=== PATIENT | male | born 1940 | race Caucasian/White ===

== ENCOUNTER 2016-12-22 22:10 | Inpatient (IN) | payer MEDICARE, OTHER ==
[~2016-12-22] VITALS: Ht 175.3 cm; Wt 96.5 kg
[~2016-12-22 22:10] MED LIST: ATOR80TA75 PO; CARV6.2579 PO; CLOP75TA27 PO; DIGO125T PO; GLIM2TAB PO; LAMO150T15 PO; LEVO150T67 PO; LISI-313 PO; MECL25TA2 PO; MIRT15TA PO; NITR0.4T32 SL; PANT40TA4 PO; VENL150C PO
[2016-12-22 22:26] VITALS: Ht 175.3 cm; Wt 96.5 kg
[2016-12-23] MEDS ORDERED: SOD CHLORIDE 0.9% 1,000 ML IV STA (01:05)
--- NOTE | 2016-12-23 01:05 | ERD ---
ER Documentation Chief Complaint Chief Complaint throbbing headache , right eye droop noticed 2 days ago, abscess forehead HPI 76-year-old man with multiple medical conditions brought in by for painful red swelling to the top of the scalp. states she is only noticed it for 1 day. He has been feeling weak and has a history of chronic falls but states he has not fallen recently. He denies back pain, chest pain, or shortness of breath, no fevers or chills, no vomiting or diarrhea. Patient has had no recent antibiotic use or recent travel. ROS All systems reviewed and are negative except as per history of present illness. Medications Home Meds Reported Medications Lisinopril* (Lisinopril*) 5 Mg Tablet, 5 MG PO DAILY, #30 TAB 08/04/15 Carvedilol* (Carvedilol*) 6.25 Mg Tablet, 6.25 MG PO BID, #60 TAB 08/04/15 Meclizine Hcl* (Antivert*) 25 Mg Tablet, 25 MG PO Q8H Y for VERTIGO, TAB 03/05/15 Nitroglycerin* (Nitroglycerin* SL) 0.4 Mg Tab.subl, 0.4 MG SL Q5MIN Y for CHEST PAIN, BOTTLE 03/05/15 Levothyroxine Sodium* (Levothyroxine Sodium*) 150 Mcg Tablet, 150 MCG PO BEFORE BREAKFAST, #30 TAB 03/05/15 Pantoprazole* (Pantoprazole*) 40 Mg Tablet.dr, 40 MG PO DAILY, TAB 03/05/15 Clopidogrel Bisulfate (Clopidogrel) 75 Mg Tablet, 75 MG PO DAILY, #30 TAB 03/05/15 Mirtazapine* (Remeron*) 15 Mg Tablet, 15 MG PO HS, TAB 11/20/14 Venlafaxine Hcl* (Effexor XR*) 150 Mg Cap.sr.24h, 150 MG PO BID, CAP 11/20/14 Atorvastatin* (Atorvastatin*) 80 Mg Tablet, 80 MG PO HS, TAB 11/20/14 Glimepiride* (Glimepiride*) 2 Mg Tablet, 2 MG PO WITH BREAKFAST, TAB 05/23/14 Digoxin* (Digoxin*) 0.125 Mg Tab, 0.125 MG PO DAILY, TAB 04/09/14 Lamotrigine* (Lamictal*) 150 Mg Tablet, 150 MG PO BID, TAB 04/09/14 Allergies Allergies: Coded Allergies: iodine (Verified Allergy, Mild, 12/25/15) procainamide (Verified Allergy, Mild, 12/25/15) PMhx/Soc lumbar spinal stenosis, osteoarthritis, COPD, tobacco dependence, bipolar disorder, peripheral artery disease, ischemic cardiomyopathy and coronary artery disease, chronic gait instability with a history of falls, bradycardia, chronic kidney disease, previous coronary artery stents, diabetes mellitus PAST SURGICAL HISTORY: 1. Status post multiple percutaneous coronary interventions for coronary artery disease. 2. Status post cholecystectomy. 3. Status post left knee arthroscopy. 4. Status post bilateral knee replacements. 5. Status post laminectomy and umbilical hernia repair. 6. Status post inferior vena cava filter placement. 7. Status post TAVR for severe aortic stenosis. History of Surgery: No Anesthesia Reaction: No Hx Neurological Disorder: No Hx Respiratory Disorders: No Hx Cardiac Disorders: Yes (AORTIC STENOSIS, BRADICARDIA, CAD, CHF, CVA, DVT) Hx Psychiatric Problems: Yes (BIPOLAR) Hx Miscellaneous Medical Probl: No Hx Alcohol Use: Yes Hx Substance Use: No Hx Tobacco Use: Yes FmHx Family History: No diabetes Physical Exam Vitals Vital Signs Date Time Temp Pulse Resp B/P Pulse Ox O2 Delivery O2 Flow Rate FiO2 12/23/16 01:58 80 18 111/68 100 Room Air 12/22/16 22:26 98.3 79 20 133/61 98 Physical Exam GENERAL: Elderly, chronically debilitated man, appears dehydrated, afebrile HEENT: Dry mucous membranes, no cervical spine deformity, large abscess cellulitis measuring about 5 cm over the frontal scalp with skin erythema and pustular discharge NEURO: Alert and oriented 3, cranial nerves II through XII intact bilaterally, pupils equal round reactive to light, no focal deficits or facial asymmetry, sensation intact distally Strength 5/5 in upper and lower extremities bilaterally CARDIAC: Regular rate and rhythm, no murmurs rubs or gallops LUNGS: Clear bilaterally no wheezing crackles or stridor ABDOMEN: Soft nontender, no guarding, no rigidity, no rebound, no psoas sign no obturator sign. Normoactive bowel sounds SKIN: Warm and dry to touch, abscess cellulitis over the top of the scalp circular measuring about 5 cm with surrounding skin induration and purulent discharge, no surrounding vesicles or papules noted EXTREMITIES: No clubbing cyanosis or edema, calves are bilaterally symmetrical, no Homans sign, no popliteal cord sign. Distal pulses equal and bilateral PSYCH: Normal affect without agitation or irritability Result Diagram: 12/23/169912/23/1699 Results 24 hrs Laboratory Tests Test 12/23/16 01:00 White Blood Count 14.410^3/ul Red Blood Count 4.0310^6/ul Hemoglobin 8.3g/dl Hematocrit 30.6% Mean Corpuscular Volume 75.9fl Mean Corpuscular Hemoglobin 20.6pg Mean Corpuscular Hemoglobin Concent 27.1g/dl Red Cell Distribution Width 19.5% Platelet Count 34074^3/UL Mean Platelet Volume 10.6fl Neutrophils % 79.4% Lymphocytes % 10.8% Monocytes % 6.8% Eosinophils % 2.1% Basophils % 0.3% Nucleated Red Blood Cells % 0.0/100WBC Neutrophils # 11.410^3/ul Lymphocytes # 1.610^3/ul Monocytes # 1.010^3/ul Eosinophils # 0.310^3/ul Basophils # 0.010^3/ul Nucleated Red Blood Cells # 0.010^3/ul Prothrombin Time 13.4Sec Prothrombin Time Ratio 1.0 INR International Normalized Ratio 1.02 Sodium Level 143mmol/L Potassium Level 3.9mmol/L Chloride Level 105mmol/L Carbon Dioxide Level 24mmol/L Anion Gap 18 Blood Urea Nitrogen 16mg/dl Creatinine 1.70mg/dl Glucose Level 161mg/dl Calcium Level 9.0mg/dl Total Bilirubin 0.2mg/dl Direct Bilirubin 0.00mg/dl Indirect Bilirubin 0.2mg/dl Aspartate Amino Transf (AST/SGOT) 14IU/L Alanine Aminotransferase (ALT/SGPT) 22IU/L Alkaline Phosphatase 74IU/L Troponin I 0.047ng/ml Total Protein 7.5g/dl Albumin 4.4g/dl Globulin 3.10g/dl Albumin/Globulin Ratio 1.41 Lipase 107U/L Current Medications Medications (Trade) Dose Ordered Sig/Randy Route PRN Reason Start Time Stop Time Status Last Admin Dose Admin Mupirocin 1 applic 1 applic ONCE ONCE TOP 12/23/16 01:30 12/23/16 01:31 DC 12/23/16 01:43 Ceftriaxone Sodium (Rocephin) 50 ml @ 100 mls/hr ONCE ONCE IVPB 12/23/16 01:30 12/23/16 01:59 DC 12/23/16 01:13 Fluconazole 200 mg 200 mg ONCE ONCE PO 12/23/16 01:30 12/23/16 01:31 DC 12/23/16 01:43 Sodium Chloride (NS) 1,000 ml @ 2,000 mls/hr Q30M STAT IV 12/23/16 01:05 12/23/16 01:34 DC 12/23/16 01:13 Procedures/MDM IV line was established patient was placed on monitoring specialist rhythm strip revealed a sinus rhythm at about 70 bpm with upright P and T waves. Patient was afebrile I administered 2 L normal saline intravenously for dehydration, ceftriaxone 1 g IV for cellulitis, fluconazole 200 mg p.o. for possible tinea capitis, and mupirocin 2% antibiotic ointment EKG performed, read by me revealed a normal sinus rhythm at 74 bpm, left axis deviation, right bundle branch block, no concerning ST elevations or depressions noted. One AP view of the chest performed, read by me reveals no acute infiltrates, normal mediastinum, sharp costophrenic and cardiac borders, no air under the diaphragm. Otherwise unremarkable chest x-ray. CT scan of the brain was negative for acute bleed mass or shift. CBC reveals a leukocytosis of 14 and anemia with a hemoglobin of 8.3, electrolytes were unremarkable, liver function tests normal, troponin negative Patient will be admitted to [facility] for continued medical management and IV antibiotics. Differential diagnoses include abscess cellulitis, acute kerion, squamous versus basal cell carcinoma, tinea capitis, shingles. Further management deferred to his PMD. I spoke to Dr. Adams regarding admission. Departure Diagnosis: Primary Impression: Scalp abscess Additional Impressions: Cellulitis of scalp Anemia Anemia type: unspecified type Qualified Code: D64.9 - Anemia, unspecified type Dehydration Condition: RIKA Kinney MD Dec 23, 2016 01:05
[2016-12-23 01:16] LABS: ABNORMAL IP MESSAGE 1; BASOPHILS % 0.3 % (0.0-2.0); EOSINOPHILS # 0.3 10^3/ul (0.0-0.5); EOSINOPHILS % 2.1 % (0.0-7.0); HEMATOCRIT 30.6 % (42.0-52.0); HEMOGLOBIN 8.3 g/dl (14.0-18.0); LYMPHOCYTES # 1.6 10^3/ul (0.8-2.9); LYMPHOCYTES % 10.8 % (15.0-51.0); MEAN CORPUSCULAR HEMOGLOBIN 20.6 pg (29.0-33.0); MEAN CORPUSCULAR HGB CONC 27.1 g/dl (32.0-37.0); MEAN CORPUSCULAR VOLUME 75.9 fl (82.0-101.0); MEAN PLATELET VOLUME 10.6 fl (7.4-10.4); MONOCYTES % 6.8 % (0.0-11.0); NEUTROPHIL # 11.4 10^3/ul (1.6-7.5); NEUTROPHILS % 79.4 % (39.0-77.0); PLATELET COUNT 271 10^3/UL (140-415); POSITIVE DIFF @See below; RED BLOOD COUNT 4.03 10^6/ul (4.70-6.10); RED CELL DISTRIBUTION WIDTH 19.5 % (11.5-14.5); WHITE BLOOD COUNT 14.4 10^3/ul (4.8-10.8)
[2016-12-23] MEDS ORDERED: CEFTRIAXONE 1 GM/50 ML (PMX) 50 ML IVPB ONE (01:30)
[2016-12-23] MEDS ORDERED: FLUCONAZOLE 200 MG TAB PO ONE (01:30)
[2016-12-23] MEDS ORDERED: MUPIROCIN 2% 22 GM OINT TOP ONE (01:30)
[2016-12-23 01:44] LABS: INR 1.02; PROTIME 13.4 Sec (12.2-14.2)
[2016-12-23 01:57] LABS: ALBUMIN 4.4 g/dl (3.3-4.9); ALBUMIN/GLOBULIN RATIO 1.41; BILIRUBIN,INDIRECT 0.2 mg/dl (0-1.1); BILIRUBIN,TOTAL 0.2 mg/dl (0.2-1.3); CREATININE 1.7 mg/dl (0.61-1.24); POTASSIUM 3.9 mmol/L (3.5-5.1); TOTAL PROTEIN 7.5 g/dl (6.1-8.1)
--- NOTE | 2016-12-23 02:02 | RADRPT ---
PROCEDURE: CT Brain without contrast. CLINICAL INDICATION: Headache. TECHNIQUE: A CT of the brain was performed utilizing axial sections from the skull base through th e vertex without contrast. Multiplanar re-formations were generated. Images were reviewed on a high- resolution PACS workstation. CTDIvol: 44.52 mGy. DLP: 720.23 mGy-cm. One or more of the following dose reduction techniques were used: - Automated exposure control. - Adjustment of the mA and/or kV according to patient size. - Use of iterative reconstruction technique. COMPARISON: None available FINDINGS: There is moderate generalized volume loss. No hydrocephalus is seen. There is no mass effect. No ac [place] intracranial hemorrhage is identified. There is no extra-axial collection. No CT evidence of ac [place] infarction is identified. There is a chronic infarction in the right occipital lobe. There is pa tchy low attenuation in the supratentorial white matter, a nonspecific finding which most likely rep resents the sequela of mild chronic microvascular ischemic disease. Incidental note is made of a 6 mm lipoma along the anterior falx cerebri. There are minimal atherosclerotic arterial calcifications . There is no significant mucosal disease in the paranasal sinuses. The visualized mastoid air cells a re clear. The ossesous structures are unremarkable. There is a subgaleal hematoma along the right fo rehead. IMPRESSION: 1. No acute intracranial pathology. 2. Moderate generalized volume loss. 3. Mild chronic microvascular ischemic changes. 4. Chronic right occipital lobe infarction. 5. Subgaleal hematoma along the right forehead. RPTAT: HTAR .Jeremy Middleton MD, Date Time Electronically viewed and signed by .Jeremy Middleton MD, MD on 12/23/2016 02:02 .R/
--- NOTE | 2016-12-23 02:04 | RADRPT ---
PROCEDURE: XR Chest. CLINICAL INDICATION: Abdominal pain. TECHNIQUE: Single frontal view of the chest. COMPARISON: 12/31/2015. FINDINGS: Cardiomegaly and new pulmonary mass congestion with patchy mid lung and lung base air space disease. No signs of pleural fluid or pneumothorax are seen. The osseous structures and soft tissues are unr emarkable. IMPRESSION: New mild failure. RPTAT: [facility] Physician Tash Date Time Electronically viewed and signed by Sandra Monae Physician on 12/23/2016 02:03 RS/
[2016-12-23 02:08] LABS: TROPONIN-I 0.047 ng/ml (0.00-0.12)
[2016-12-23 03:45] VITALS: BP 110/65; PULSE 67; RESP 18
[2016-12-23 07:49] VITALS: BP 116/55; RESP 18
[2016-12-23] MEDS ORDERED: GLUCOSE GEL 15 GRAM TUBE BUCCAL PRN (08:00)
[2016-12-23] MEDS ORDERED: GLUCOSE GEL 15 GRAM TUBE PO PRN ×2 (08:00)
[2016-12-23] MEDS ORDERED: GLUCAGON 1 MG INJ IM PRN (08:00)
[2016-12-23] MEDS ORDERED: DEXTROSE 50% 50 ML SYRINGE IV PRN ×2 (08:00)
--- NOTE | 2016-12-23 09:37 | HP ---
Date/Time of Note Date/Time of Note DATE: 12/23/16 TIME: 09:34 Assessment/Plan VTE Prophylaxis VTE Prophylaxis Intervention: other Lines/Catheters Urinary Cath still in place: No Assessment/Plan Chief Complaint/Hosp Course 1) cellulitis/abscess - IV antibiotics - monitor clinically 2) diabetes - follow blood sugar - sliding scale insulin Problems: HPI/ROS Admit Date/Time Admit Date/Time Dec 23, 2016 at 02:25 Hx of Present Illness Patient with diabetes, gait instability, cardiomyopathy and renal insufficiency comes in with swelling on his forehead. Patient was found to have evidence of cellulitis vs abscess and admitted for antibiotics and other therapy PMH/Family/Social Past Medical History Medical History: coronary artery disease, diabetes, hypertension, renal disease Past Surgical History Past Surgical Hx: angioplasty, other Social History Smoking Status: Never smoker Exam/Review of Systems Vital Signs Vitals Vital Signs Date Time Temp Pulse Resp B/P Pulse Ox O2 Delivery O2 Flow Rate FiO2 12/23/16 07:49 97.6 71 18 116/55 97 12/23/16 03:45 Room Air Exam Constitutional: well developed Head: atraumatic, normocephalic Neck: supple Respiratory: clear to auscultation Cardiovascular: regular rate and rhythm Gastrointestinal: non-tender, soft Extremities: normal pulses Labs Result Diagram: 12/23/169912/23/16 010 Medications Medications Current Medications Morphine Sulfate 4 mg 4 mg Q4H PRN IV PAIN LEVEL 6-10; Start 12/23/16 at 05:00 Cefazolin Sodium/ Sodium Chloride (Ancef/NS) 50 ml @ 100 mls/hr Q6 IVPB ; Start 12/23/16 at 12:00 Influenza Virus Vaccine (Fluzone) 0.5 ml ONCE ONCE IM* ; Start 12/24/16 at 09: 00; Stop 12/24/16 at 09:01 Diagnostic Test (Pha) (Accu-Chek) 1 ea 02 XX ; Start 12/24/16 at 02:00 Diagnostic Test (Pha) (Accu-Chek) 1 ea 02 XX ; Start 12/24/16 at 02:00 Miscellaneous Information 1 ea NOTE XX ; Start 12/23/16 at 08:00 Glucose (Glutose) 15 gm Q15M PRN PO DECREASED GLUCOSE; Start 12/23/16 at 08:00 Glucose (Glutose) 22.5 gm Q15M PRN PO DECREASED GLUCOSE; Start 12/23/16 at 08: 00 Dextrose (D50w Syringe) 25 ml Q15M PRN IV DECREASED GLUCOSE; Start 12/23/16 at 08:00 Dextrose (D50w Syringe) 50 ml Q15M PRN IV DECREASED GLUCOSE; Start 12/23/16 at 08:00 Glucagon (Glucagen) 1 mg Q15M PRN IM DECREASED GLUCOSE; Start 12/23/16 at 08: 00 Glucose (Glutose) 15 gm Q15M PRN BUCCAL DECREASED GLUCOSE; Start 12/23/16 at 08:00 DAMIR LATIF Dec 23, 2016 09:37
[2016-12-23] MEDS: INSULIN ASPART [NOVOLOG] 3 ML PEN SC SCH ×4 (09:52→21:00)
[2016-12-23] MEDS: CEFAZOLIN 500 MG in SOD CHLORIDE 0.9% 50 ML IVPB SCH ×2 (12:55→18:20)
[2016-12-23 14:09] VITALS: BP 102/52; RESP 18
[2016-12-23] MEDS: ACETAMINOPHEN 325 MG TAB PO PRN (15:44)
[2016-12-23 19:31] VITALS: BP 114/54; RESP 18
[2016-12-24] MEDS: CEFAZOLIN 500 MG in SOD CHLORIDE 0.9% 50 ML IVPB SCH ×4 (00:11→17:41)
[2016-12-24 01:33] VITALS: BP 105/53; RESP 18
[2016-12-24] MEDS: ACCU-CHEK XX SCH ×2 (02:00)
[2016-12-24] MEDS: ACETAMINOPHEN 325 MG TAB PO PRN ×2 (06:46→17:40)
[2016-12-24 07:39] VITALS: BP 104/58; RESP 20
[2016-12-24] MEDS: INSULIN ASPART [NOVOLOG] 3 ML PEN SC SCH ×4 (08:22→21:00)
[2016-12-24] MEDS ORDERED: INFLUENZA VIRUS VACCINE 0.5 ML (DISPENSING) IM* ONE (09:00)
--- NOTE | 2016-12-24 10:39 | PN ---
Date/Time of Note Date/Time of Note DATE: 12/24/16 TIME: 10:38 Assessment/Plan VTE Prophylaxis VTE Prophylaxis Intervention: other Lines/Catheters [facility] Saline Lock Urinary Cath still in place: No Assessment/Plan Chief Complaint/Hosp Course 1) cellulitis/abscess - IV antibiotics - monitor clinically 2) diabetes - follow blood sugar - sliding scale insulin Problems: Subjective 24 Hr Interval Summary Free Text/Dictation Patient has less headache Exam/Review of Systems Vital Signs Vitals Vital Signs Date Time Temp Pulse Resp B/P Pulse Ox O2 Delivery O2 Flow Rate FiO2 12/24/16 07:39 98.3 65 20 104/58 97 12/23/16 03:45 Room Air Intake and Output 12/23/16 12/23/16 12/24/16 15:00 23:00 07:00 Intake Total 50 ml 1250 ml 580 ml Output Total 800 ml 1450 ml Balance 50 ml 450 ml -870 ml Exam Constitutional: well developed Head: atraumatic, normocephalic Neck: supple Respiratory: clear to auscultation Cardiovascular: regular rate and rhythm Gastrointestinal: non-tender, soft Extremities: normal pulses Results Result Diagram: 12/23/16 0100 12/23/16 0100 Results 24 hrs Laboratory Tests Test 12/23/16 12:18 12/23/16 17:20 12/23/16 21:27 12/24/16 08:01 Bedside Glucose 125 123 147 145 Medications Medications Current Medications Morphine Sulfate 4 mg 4 mg Q4H PRN IV PAIN LEVEL 6-10; Start 12/23/16 at 05:00 Cefazolin Sodium/ Sodium Chloride (Ancef/NS) 50 ml @ 100 mls/hr Q6 IVPB Last administered on 12/24/16t 05:34; Admin Dose 100 MLS/HR; Start 12/23/16 at 12: 00 Diagnostic Test (Pha) (Accu-Chek) 1 ea 02 XX ; Start 12/24/16 at 02:00 Diagnostic Test (Pha) (Accu-Chek) 1 ea 02 XX ; Start 12/24/16 at 02:00 Miscellaneous Information 1 ea NOTE XX ; Start 12/23/16 at 08:00 Glucose (Glutose) 15 gm Q15M PRN PO DECREASED GLUCOSE; Start 12/23/16 at 08:00 Glucose (Glutose) 22.5 gm Q15M PRN PO DECREASED GLUCOSE; Start 12/23/16 at 08: 00 Dextrose (D50w Syringe) 25 ml Q15M PRN IV DECREASED GLUCOSE; Start 12/23/16 at 08:00 Dextrose (D50w Syringe) 50 ml Q15M PRN IV DECREASED GLUCOSE; Start 12/23/16 at 08:00 Glucagon (Glucagen) 1 mg Q15M PRN IM DECREASED GLUCOSE; Start 12/23/16 at 08: 00 Glucose (Glutose) 15 gm Q15M PRN BUCCAL DECREASED GLUCOSE; Start 12/23/16 at 08:00 Acetaminophen (Tylenol Tab) 650 mg Q6H PRN PO PAIN AND OR ELEVATED TEMP Last administered on 12/24/16 06:46; Admin Dose 650 MG; Start 12/23/16 at 14:30 DAMIR LATIF Dec 24, 2016 10:39
[2016-12-24 13:49] VITALS: BP 139/60; RESP 20
[2016-12-24 19:55] VITALS: BP 129/78; RESP 18
[2016-12-25] MEDS: CEFAZOLIN 500 MG in SOD CHLORIDE 0.9% 50 ML IVPB SCH ×3 (00:35→15:36)
[2016-12-25 02:00] VITALS: BP 118/55; RESP 18
[2016-12-25] MEDS: ACCU-CHEK XX SCH ×2 (02:00)
[2016-12-25 05:18] LABS: ABNORMAL IP MESSAGE 1; BASOPHILS % 0.2 % (0.0-2.0); EOSINOPHILS # 0.3 10^3/ul (0.0-0.5); EOSINOPHILS % 3.3 % (0.0-7.0); HEMATOCRIT 27.4 % (42.0-52.0); HEMOGLOBIN 7.7 g/dl (14.0-18.0); LYMPHOCYTES # 1.2 10^3/ul (0.8-2.9); LYMPHOCYTES % 14.6 % (15.0-51.0); MEAN CORPUSCULAR HEMOGLOBIN 20.3 pg (29.0-33.0); MEAN CORPUSCULAR HGB CONC 28.1 g/dl (32.0-37.0); MEAN CORPUSCULAR VOLUME 72.3 fl (82.0-101.0); MEAN PLATELET VOLUME 10.6 fl (7.4-10.4); MONOCYTE # 0.5 10^3/ul (0.3-0.9); MONOCYTES % 5.7 % (0.0-11.0); NEUTROPHIL # 6.2 10^3/ul (1.6-7.5); NEUTROPHILS % 75.7 % (39.0-77.0); PLATELET COUNT 211 10^3/UL (140-415); POSITIVE DIFF @See below; RED BLOOD COUNT 3.79 10^6/ul (4.70-6.10); RED CELL DISTRIBUTION WIDTH 19.2 % (11.5-14.5); WHITE BLOOD COUNT 8.2 10^3/ul (4.8-10.8)
[2016-12-25 05:46] LABS: CREATININE 1.48 mg/dl (0.61-1.24); POTASSIUM 4.4 mmol/L (3.5-5.1)
[2016-12-25 07:42] VITALS: BP 122/60; RESP 18
[2016-12-25] MEDS: INSULIN ASPART [NOVOLOG] 3 ML PEN SC SCH ×4 (08:03→20:52)
[2016-12-25] MEDS ORDERED: ACETAMINOPHEN 325 MG TAB PO PRN (09:00)
[2016-12-25 10:41] VITALS: PULSE 64
--- NOTE | 2016-12-25 11:19 | PN ---
Date/Time of Note Date/Time of Note DATE: 12/25/16 TIME: 11:12 Assessment/Plan VTE Prophylaxis VTE Prophylaxis Intervention: SCD's Lines/Catheters [facility] Saline Lock Urinary Cath still in place: No Assessment/Plan Chief Complaint/Hosp Course pt is awake, alert, was transferred to tele due to bradycardia. Scalp wound with drainage. Problems: Assessment/Plan - Scalp cellulitis/abscess. Wound cx +MRSA. Continue Vanco. Dr. Oliva is asked to see patient in car in infection disease consultation. Dr. Saldivar is asked to see pt in general surgery. - Ischemic cardiomyopathy. Continue Coreg per cardiology recs. Dr. Amaral is asked to see patient in cardiology consultation - Bradycardia. Continue tele. - Chronic kidney disease stage III. Monitor renal function and avoid nephrotoxic drugs. - Coronary artery disease with history of stent placement. Continue Plavix. - Chronic obstructive pulmonary disease. - Diabetes mellitus, continue Amaryl and NovoLog per sliding scale. D/W Dr Cristina. Exam/Review of Systems Vital Signs Vitals Vital Signs Date Time Temp Pulse Resp B/P Pulse Ox O2 Delivery O2 Flow Rate FiO2 12/25/16 10:41 64 12/25/16 07:42 98.9 18 122/60 95 12/23/16 03:45 Room Air Intake and Output 12/24/16 12/24/16 12/25/16 15:00 23:00 07:00 Intake Total 50 ml 1490 ml 540 ml Output Total 1850 ml 1550 ml Balance 50 ml -360 ml -1010 ml Exam Constitutional: alert, oriented Head: normocephalic Neck: supple Respiratory: normal air movement Cardiovascular: nl pulses Gastrointestinal: non-tender, soft Extremities: normal pulses Neurological: nl mental status Skin: other (scalp wound) Results Result Diagram: 12/25/16 0458 12/25/16 0458 Results 24 hrs Laboratory Tests Test 12/24/16 12:10 12/24/16 17:14 12/24/16 21:31 12/25/16 04:58 Bedside Glucose 114 122 132 White Blood Count 8.2 # Red Blood Count 3.79 L Hemoglobin 7.7 L Hematocrit 27.4 L Mean Corpuscular Volume 72.3 L Mean Corpuscular Hemoglobin 20.3 L Mean Corpuscular Hemoglobin Concent 28.1 L Red Cell Distribution Width 19.2 H Platelet Count 211 # Mean Platelet Volume 10.6 H Neutrophils % 75.7 Lymphocytes % 14.6 L Monocytes % 5.7 Eosinophils % 3.3 Basophils % 0.2 Nucleated Red Blood Cells % 0.0 Neutrophils # 6.2 Lymphocytes # 1.2 Monocytes # 0.5 Eosinophils # 0.3 Basophils # 0.0 Nucleated Red Blood Cells # 0.0 Sodium Level 139 Potassium Level 4.4 Chloride Level 107 Carbon Dioxide Level 23 Anion Gap 13 Blood Urea Nitrogen 21 H Creatinine 1.48 H Glucose Level 110 Calcium Level 9.0 Test 12/25/16 07:59 Bedside Glucose 122 Medications Medications Current Medications Morphine Sulfate 4 mg 4 mg Q4H PRN IV PAIN LEVEL 6-10; Start 12/23/16 at 05:00 Cefazolin Sodium/ Sodium Chloride (Ancef/NS) 50 ml @ 100 mls/hr Q6 IVPB Last administered on 12/25/16 06:19; Admin Dose 100 MLS/HR; Start 12/23/16 at 12: 00 Diagnostic Test (Pha) (Accu-Chek) 1 ea 02 XX ; Start 12/24/16 at 02:00 Diagnostic Test (Pha) (Accu-Chek) 1 ea 02 XX ; Start 12/24/16 at 02:00 Miscellaneous Information 1 ea NOTE XX ; Start 12/23/16 at 08:00 Glucose (Glutose) 15 gm Q15M PRN PO DECREASED GLUCOSE; Start 12/23/16 at 08:00 Glucose (Glutose) 22.5 gm Q15M PRN PO DECREASED GLUCOSE; Start 12/23/16 at 08: 00 Dextrose (D50w Syringe) 25 ml Q15M PRN IV DECREASED GLUCOSE; Start 12/23/16 at 08:00 Dextrose (D50w Syringe) 50 ml Q15M PRN IV DECREASED GLUCOSE; Start 12/23/16 at 08:00 Glucagon (Glucagen) 1 mg Q15M PRN IM DECREASED GLUCOSE; Start 12/23/16 at 08: 00 Glucose (Glutose) 15 gm Q15M PRN BUCCAL DECREASED GLUCOSE; Start 12/23/16 at 08:00 Acetaminophen (Tylenol Tab) 650 mg Q6H PRN PO PAIN AND OR ELEVATED TEMP Last administered on 12/24/16 17:40; Admin Dose 650 MG; Start 12/23/16 at 14:30 Acetaminophen/ Hydrocodone Bitart ([place] (5/325)) 1 tab Q6H PRN PO PAIN LEVEL 6 -10; Start 12/24/16 at 23:00 Pantoprazole (Protonix Tab) 40 mg DAILY@06 PO ; Start 12/26/16 at 06:00 Acetaminophen (Tylenol Tab) 650 mg Q6H PRN PO PAIN AND OR ELEVATED TEMP; Start 12/25/16 at 09:00 SELMA ELMORE Dec 25, 2016 11:19
[2016-12-25] MEDS: ALBUTEROL/IPRATROPIUM (NEB) 3 ML AMP HHN SCH ×2 (14:00→20:03)
[2016-12-25 16:01] VITALS: PULSE 62
[2016-12-25] MEDS ORDERED: VANCOMYCIN IV PER PHARMACY XX SCH (16:30)
[2016-12-25] MEDS ORDERED: VANCOMYCIN 2 GM in SOD CHLORIDE 0.9% 500 ML IVPB SCH (17:00)
[2016-12-25 20:04] VITALS: PULSE 62
[2016-12-25 20:29] VITALS: BP 113/56; RESP 20
--- NOTE | 2016-12-25 21:07 | CONS ---
DATE OF ADMISSION: 12/23/2016 DATE OF CONSULTATION: 12/25/2016 TYPE OF CONSULTATION: Infectious Disease. REASON FOR CONSULTATION: Antibiotic management. HISTORY OF PRESENT ILLNESS: The patient is a 76-year-old male who was admitted on the through the emergency room with a throbbing headache, right eye droop, and abscess on his forehead. He is a 76-year-old male with multiple medical problems. He has painful red swelling on the top of his sca lp, which his noticed for 1 day. He has been feeling weak, has had a history of chronic falls, but has not fallen recently. His past problems include: 1. Hypertension. 2. Dizziness. 3. Angina. 4. Hypothyroidism. 5. Depression. 6. Hyperlipidemia. 7. ALLERGIES TO IODINE AND PROCAINAMIDE. 8. Status post multiple percutaneous coronary interventions for coronary artery disease. 9. Status post cholecystectomy. 10. Status post left knee arthroscopy. 11. Status post bilateral knee replacements. 12. Status post laminectomy. 13. Status post umbilical hernia repair. 14. Status post inferior vena cava filter placement. 15. Status post TAVR for severe aortic stenosis, so he had a valve replacement for aortic stenosis. 16. Bipolar affect. 17. Osteoarthritis. 18. Chronic obstructive pulmonary disease. 19. Tobacco dependence. 20. Peripheral artery disease. 21. Ischemic cardiomyopathy. 22. Chronic gait instability. 23. Bradycardia. 24. Chronic renal disease. 25. Acutely, on admission, he has painful red swelling at the top of the scalp. PAST MEDICAL HISTORY/PAST SURGICAL HISTORY: As outlined. FAMILY HISTORY: Noncontributory. SOCIAL HISTORY: He smokes and he uses alcohol. He does not abuse drugs. MEDICATIONS: Per chart. REVIEW OF SYSTEMS: As per HPI. HOSPITAL COURSE: On admission, his white count was 14.4, H and H of 8.3 and 30.6, platelet count 27 1,000. BUN and creatinine 17/1.70, glucose of 161. HOSPITAL COURSE: The patient has cellulitis and abscess in addition to ischemic cardiomyopathy. He was seen by Dr. Judith Adams and also by nurse practitioner Fernando. White count today is 8.2, H and H is 21/1.48. Microbiology: He has a wound, which is growing methi cillin-resistant Staphylococcus aureus. Chest x-ray shows new mild failure. CT of the brain does n ot show any acute intracranial pathology. Subgaleal hematoma along the right forehead. Chronic rig ht occipital lobe infarction. Mild chronic microvascular ischemic changes. Moderate generalized vo lume loss. PHYSICAL EXAMINATION: GENERAL: The patient is a chronically debilitated male who appeared dehydrated on admission. VITAL SIGNS: Stable. He is afebrile. SKIN: Without generalized rash. He has abscess and cellulitis over the top of the scalp, circular, measuring about 5 cm, with surrounding skin induration and purulent discharge. On admission, no quinn rrounding vesicles or papules noted. HEENT: Within normal limits aside from the abscess and cellulitis. NECK: Supple. LYMPH NODES: None palpable. CHEST: Decreased breath sounds at the bases. HEART: Without murmur or gallop. ABDOMEN: Soft, nontender, without organosplenomegaly or masses. EXTREMITIES: Without cyanosis, clubbing, or edema. RECTAL AND GENITAL: Deferred. NEUROLOGIC: No focal neurological abnormalities. IMPRESSION AND PLAN: Patient currently is on cefazolin, but he has methicillin-resistant Staphyloco ccus aureus. The cefazolin was ordered by Dr. Adams. We are going to switch him over to vancomycin. I will dictate my findings to Dr. Giron and to nurse practitioner Fernando. Dictated By: DARRYL WHITESIDE MD, JD/ALBARO Conf#: [id number] DID#: [id number]
[2016-12-26] VITALS (13 sets, daily range): BP systolic 100–124; BP diastolic 53–82; PULSE 60–69; RESP 19–20
[2016-12-26] MEDS: ALBUTEROL/IPRATROPIUM (NEB) 3 ML AMP HHN SCH ×4 (01:28→19:36)
[2016-12-26] MEDS: ACCU-CHEK XX SCH (02:00)
[2016-12-26] MEDS ORDERED: ACCU-CHEK XX SCH ×2 (02:00)
[2016-12-26] MEDS ORDERED: VANCOMYCIN 1.25 GM in SOD CHLORIDE 0.9% 250 ML IVPB SCH (05:00)
[2016-12-26] MEDS: LEVOFLOXACIN 500 MG TAB PO SCH (06:22)
[2016-12-26] MEDS: LEVOTHYROXINE 150 MCG TAB PO SCH (06:23)
[2016-12-26] MEDS: PANTOPRAZOLE (EC) 40 MG TAB PO SCH (06:23)
[2016-12-26 07:29] LABS: ABNORMAL IP MESSAGE 1; BASOPHILS % 0.3 % (0.0-2.0); EOSINOPHILS # 0.2 10^3/ul (0.0-0.5); EOSINOPHILS % 2.3 % (0.0-7.0); HEMATOCRIT 30.1 % (42.0-52.0); HEMOGLOBIN 8.7 g/dl (14.0-18.0); LYMPHOCYTES # 0.9 10^3/ul (0.8-2.9); LYMPHOCYTES % 10.7 % (15.0-51.0); MEAN CORPUSCULAR HEMOGLOBIN 21.6 pg (29.0-33.0); MEAN CORPUSCULAR HGB CONC 28.9 g/dl (32.0-37.0); MEAN CORPUSCULAR VOLUME 74.7 fl (82.0-101.0); MEAN PLATELET VOLUME 10.2 fl (7.4-10.4); MONOCYTE # 0.5 10^3/ul (0.3-0.9); MONOCYTES % 6.2 % (0.0-11.0); NEUTROPHIL # 6.3 10^3/ul (1.6-7.5); PLATELET COUNT 198 10^3/UL (140-415); POSITIVE DIFF @See below; RED BLOOD COUNT 4.03 10^6/ul (4.70-6.10); RED CELL DISTRIBUTION WIDTH 19.2 % (11.5-14.5); WHITE BLOOD COUNT 7.9 10^3/ul (4.8-10.8)
[2016-12-26] MEDS: INSULIN ASPART [NOVOLOG] 3 ML PEN SC SCH ×7 (08:00→20:57)
[2016-12-26 08:11] LABS: CALCIUM 8.3 mg/dl (8.4-10.2); CREATININE 1.49 mg/dl (0.61-1.24); POTASSIUM 4.4 mmol/L (3.5-5.1)
[2016-12-26] MEDS: VENLAFAXINE (XR) 75 MG CAP PO SCH ×2 (08:17→20:57)
[2016-12-26] MEDS: CLOPIDOGREL 75 MG TAB PO SCH (08:18)
[2016-12-26] MEDS: GLIMEPIRIDE 2 MG TAB PO SCH (08:18)
[2016-12-26] MEDS: DIGOXIN 0.125 MG TAB PO SCH (08:20)
[2016-12-26] MEDS: LISINOPRIL 5 MG TAB PO SCH (08:20)
[2016-12-26] MEDS ORDERED: PANTOPRAZOLE (EC) 40 MG TAB PO SCH (09:00)
[2016-12-26] MEDS: HYDROCODONE/APAP (5/325) TAB PO PRN (14:55)
--- NOTE | 2016-12-26 14:56 | RADRPT ---
Vent Rate: 67 bpm RR Interval: 0 msec CO Interval: 186 msec QRS Duration: 146 msec QT Interval: 502 msec QTC Interval: 530 msec P-R-T Howard: 36 - -11 - -65 degrees Sinus rhythm with frequent premature ventricular complexes and fusion complexes Nonspecific intraventricular block Abnormal ECG Electronically Signed By: Jonh Greenberg [id number]
--- NOTE | 2016-12-26 16:26 | PN ---
Date/Time of Note Date/Time of Note DATE: 12/26/16 TIME: 16:24 Assessment/Plan VTE Prophylaxis VTE Prophylaxis Intervention: SCD's Lines/Catheters IV C[facility]ter Type (from [facility] Saline Lock Urinary Cath still in place: No Assessment/Plan Chief Complaint/Hosp Course Assessment/Plan - Scalp cellulitis/abscess. Wound cx +MRSA. Continue Vanco. Dr. Oliva is following in infection disease consultation. Dr. Saldivar is following in general surgery. - Ischemic cardiomyopathy. Continue Coreg per cardiology recs. Dr. Amaral is asked to see patient in cardiology consultation - Bradycardia. Continue telemetry monitoring. - Chronic kidney disease stage III. Monitor renal function and avoid nephrotoxic drugs. - Coronary artery disease with history of stent placement. Continue Plavix. - Chronic obstructive pulmonary disease. - Diabetes mellitus, hemoglobin A1c is 6.6, continue Amaryl and NovoLog per sliding scale. Further recommendations based on clinical course. Plan of care discussed with Dr. Giron Problems: Exam/Review of Systems Vital Signs Vitals Vital Signs Date Time Temp Pulse Resp B/P Pulse Ox O2 Delivery O2 Flow Rate FiO2 12/26/16 16:00 66 12/26/16 15:45 98.4 19 120/82 98 12/26/16 13:40 21 12/23/16 03:45 Room Air Intake and Output 12/25/16 12/25/16 12/26/16 15:00 23:00 07:00 Intake Total 700 ml 250 ml Output Total 600 ml 825 ml Balance 100 ml -575 ml Exam Constitutional: alert, oriented Head: normocephalic Neck: supple Respiratory: normal air movement Cardiovascular: nl pulses Gastrointestinal: non-tender, soft Extremities: normal pulses Neurological: nl mental status Skin: other (scalp wound) Results Result Diagram: 12/26/16 0647 12/26/16 0647 Results 24 hrs Laboratory Tests Test 12/25/16 16:59 12/25/16 20:47 12/26/16 06:26 12/26/16 06:47 Bedside Glucose 111 137 Lab Scanned Report BLOOD TRANSFUSION White Blood Count 7.9 Red Blood Count 4.03 L Hemoglobin 8.7 L Hematocrit 30.1 L Mean Corpuscular Volume 74.7 L Mean Corpuscular Hemoglobin 21.6 L Mean Corpuscular Hemoglobin Concent 28.9 L Red Cell Distribution Width 19.2 H Platelet Count 198 Mean Platelet Volume 10.2 Neutrophils % 80.0 H Lymphocytes % 10.7 L Monocytes % 6.2 Eosinophils % 2.3 Basophils % 0.3 Nucleated Red Blood Cells % 0.0 Neutrophils # 6.3 Lymphocytes # 0.9 Monocytes # 0.5 Eosinophils # 0.2 Basophils # 0.0 Nucleated Red Blood Cells # 0.0 Sodium Level 139 Potassium Level 4.4 Chloride Level 104 Carbon Dioxide Level 25 Anion Gap 14 Blood Urea Nitrogen 18 Creatinine 1.49 H Glucose Level 116 Hemoglobin A1c 6.6 H Calcium Level 8.3 L Test 12/26/16 06:48 12/26/16 08:14 12/26/16 11:38 Thyroid Stimulating Hormone (TSH) 33.700 H Bedside Glucose 127 179 Medications Medications Current Medications Morphine Sulfate (morphine) 4 mg Q4H PRN IV PAIN LEVEL 6-10; Start 12/23/16 at 05:00 Miscellaneous Information 1 ea NOTE XX ; Start 12/23/16 at 08:00 Glucose (Glutose) 15 gm Q15M PRN PO DECREASED GLUCOSE; Start 12/23/16 at 08:00 Glucose (Glutose) 22.5 gm Q15M PRN PO DECREASED GLUCOSE; Start 12/23/16 at 08: 00 Dextrose (D50w Syringe) 25 ml Q15M PRN IV DECREASED GLUCOSE; Start 12/23/16 at 08:00 Dextrose (D50w Syringe) 50 ml Q15M PRN IV DECREASED GLUCOSE; Start 12/23/16 at 08:00 Glucagon (Glucagen) 1 mg Q15M PRN IM DECREASED GLUCOSE; Start 12/23/16 at 08: 00 Glucose (Glutose) 15 gm Q15M PRN BUCCAL DECREASED GLUCOSE; Start 12/23/16 at 08:00 Acetaminophen (Tylenol Tab) 650 mg Q6H PRN PO PAIN AND OR ELEVATED TEMP Last administered on 12/24/16 17:40; Admin Dose 650 MG; Start 12/23/16 at 14:30 Acetaminophen/ Hydrocodone Bitart ([place] (5/325)) 1 tab Q6H PRN PO PAIN LEVEL 6 -10 Last administered on 12/26/16 14:55; Admin Dose 1 TAB; Start 12/24/16 at 23:00 Pantoprazole (Protonix Tab) 40 mg DAILY@06 PO Last administered on 12/26/16 06:23; Admin Dose 40 MG; Start 12/26/16 at 06:00 Clopidogrel Bisulfate (plaVIX) 75 mg DAILY PO Last administered on 12/26/16 08:18; Admin Dose 75 MG; Start 12/26/16 at 09:00 Levofloxacin (Levaquin) 500 mg DAILY@06 PO Last administered on 12/26/16 06: 22; Admin Dose 500 MG; Start 12/26/16 at 06:00 Diagnostic Test (Pha) (Accu-Chek) 1 ea 02 XX ; Start 12/26/16 at 02:00 Atorvastatin Calcium (Lipitor) 80 mg HS PO ; Start 12/26/16 at 21:00 Digoxin (Digoxin) 0.125 mg DAILY PO Last administered on 12/26/16 08:20; Admin Dose 0.125 MG; Start 12/26/16 at 09:00 Lisinopril (Zestril) 5 mg DAILY PO ; Start 12/26/16 at 09:00 Mirtazapine (Remeron) 15 mg HS PO ; Start 12/26/16 at 21:00 Venlafaxine HCl 150 mg 150 mg BID PO Last administered on 12/26/16 08:17; Admin Dose 150 MG; Start 12/26/16 at 09:00 Vancomycin HCl/ Sodium Chloride (Vancocin/NS) 250 ml @ 83.333 mls/ hr Q24H IVPB ; Start 12/27/16 at 05:00 Silver Sulfadiazine (Thermazene 1% 25 Gm) 1 applic BID TOP ; Start 12/26/16 at 21:00 SELMA ELMORE Dec 26, 2016 16:26
--- NOTE | 2016-12-26 20:44 | PN ---
DATE: 12/26/2016 SUBJECTIVE: No events overnight. The patient is awake, looks comfortable, no fevers. LABORATORY DATA: WBC 7.9, neutrophils 80.7, no bands. BUN 18, creatinine 1.49. MICROBIOLOGY: Forehead wound grew MRSA. ANTIMICROBIALS: The patient is on IV vancomycin. PHYSICAL EXAMINATION: GENERAL: Well-developed, elderly man in no distress. HEENT: Head atraumatic, normocephalic. Sclerae anicteric. Buccal mucosa dry. NECK: Supple. CHEST: Rise symmetrical. Breath sounds diminished to bases. HEART: S1, S2. ABDOMEN: Soft, bowel tones present. EXTREMITIES: Without cyanosis. SKIN: Dry, pale. There is erythema on the forehead. ASSESSMENT: 1. Methicillin-resistant Staphylococcus aureus cellulitis of the forehead with draining abscess. 2. Hypertension. 3. Chronic obstructive pulmonary disease. 4. Ischemic cardiomyopathy. 5. Chronic kidney disease stage III. PLAN: The patient remains stable. We will continue him on current antibiotics. Monitor renal func tion. Await for clinical improvement. Dictated By: ILENE JUDGE [employer]ON[employer] INSPECTOR for DARRYL MATTA/ALBARO Conf#: [id number] DID#: [id number]
[2016-12-26] MEDS: SILVER SULFADIAZINE 1% 25 GM CR TOP SCH (20:56)
[2016-12-26] MEDS: ATORVASTATIN 80 MG TAB PO SCH (20:57)
[2016-12-26] MEDS: MIRTAZAPINE 15 MG TAB PO SCH (20:57)
--- NOTE | 2016-12-26 22:33 | CONS ---
DATE OF ADMISSION: 12/23/2016 DATE OF CONSULTATION: 12/26/2016 TYPE OF CONSULTATION: Surgical. REQUESTING PHYSICIAN: Dr. Giron's service from nurse practitioner Tanisha. REASON FOR CONSULTATION: Evaluation of the wound on the right forehead with abscess formation. Thank you, Dr. Giron and Tanisha, for asking Dr. Matos, surgical service, to get involved in the care of this patient. HISTORY OF PRESENT ILLNESS: Apparently, this patient was admitted to the hospital through the emergency room on 12/23/2016 at 2200 hours because of painful red swelling to the top of the right side of the skull for 1 day's duration per the patient's . Apparently, when I asked the question, it became clear that about a year ago he fell on his forehead on the same side and he has had swelling and a bump on that side for a long time, but he never was bothered by that except he claims that one night he slept on the couch and the next morning when he woke up, he had pain and swelling and redness and tenderness. Also, he has been feeling weak and has a history of chronic falls. Of course, he denies having fallen recently. PAST MEDICAL HISTORY: 1. Lumbar spinal stenosis. 2. Osteoarthritis, both knees. 3. COPD. 4. Tobacco dependence. 5. Bipolar disorder. 6. Peripheral artery disease. 7. Ischemic cardiomyopathy and coronary artery disease. 8. Chronic gait instability with history of falls. 9. Bradycardia. 10. Chronic kidney disease. 11. Previous coronary artery stent. 12. Diabetes mellitus. PAST SURGICAL HISTORY: 1. Multiple percutaneous coronary interventions for coronary artery disease. 2. Status post cholecystectomy. 3. Status post left knee arthroscopy. 4. Status post bilateral knee replacement. 5. Status post laminectomy and umbilical hernia repair. 6. Status post inferior vena cava filter placement. 7. Status post deep vein thrombosis of the lower extremity. ALLERGIES: THE PATIENT IS ALLERGIC TO: 1. IODINE. 2. PROCAINAMIDE. TOBACCO USE: Yes. ALCOHOL USE: Yes. PHYSICAL EXAMINATION GENERAL: Today, the patient is lying down in the bed, alert, awake, oriented x3. VITAL SIGNS: Recorded temperature 98.1, heart rate 69 and regular, respirations 14, blood pressure 105/53, saturation 97% on room air. HEAD AND NECK: There is an area about 5 cm x 5 cm to the right side of the midline over the anterior forehead with multiple holes in the skin and redness of the skin. Through the holes, with very slight pressure, pus will come out and spontaneously also pus has been coming out, yellowish creamy-colored pus. It should be mentioned that this culture has grown MRSA. I evaluated the area properly to see if there is any evidence of cyst, including dermoid cyst, which has ruptured and has gotten secondarily infected. It does not appear but I cannot rule it out 100% anyway. Trachea is in midline. No thyroid enlargement. No adenopathy. EYES: Pupils equally round, reactive to light and accommodative. Extraocular muscles full range of motion. HEART: Regular. LUNGS: Clear. ABDOMEN: Soft. UPPER EXTREMITIES: On the right forearm, there is evidence of previous boil which, according to the patient, has ruptured spontaneously and now is healing and dry scab is there. Apparently, he is getting on and off this kind of boils here and there. Therefore, this on the forehead could be one of them. LOWER EXTREMITIES: There are no dorsalis pedis or posterior tibial pulses available and palpable. There is deformity of the toenails on both feet (we are going to request rn transitional care to evaluate the toenails). LABORATORIES: It should be mentioned that on admission to the hospital, his WBC was 14,400 with 79% segmented with a shift to the left. Hemoglobin was 8.3. Hematocrit was 30.6. Two days later, hemoglobin dropped to 7.7, hematocrit 27.4, requiring the patient to transfused 1 unit of packed cells. Today, his WBC has dropped to 7.9 with 80% segmented which is almost normal, hemoglobin 8.7, hematocrit 30. Chemistry today: BUN is normal. Creatinine is 1.49. Hemoglobin A1c is 6.6. Thyroid stimulating hormone is 33,700 which is quite high. Coagulation is normal. IMAGING: Chest x-ray: Cardiomegaly and new pulmonary mass, congestion with patchy mid lung and lung base airspace disease. No sign of pleural fluid or pneumothorax was seen. The osseous structures and soft tissues are unremarkable. This was read by Dr. Monae. CT scan of the brain was done on 12/23/2016 in this hospital, was read by Dr. Jeremy Middleton as follows: 1. No acute intracranial pathology. 2. Moderate generalized volume loss. 3. Mild chronic microvascular ischemic changes. 4. Chronic right occipital lobe infarct. 5. Subgalial hematoma along the right forehead. MICROBIOLOGY: Wound culture from the skull wound has grown gram-positive cocci in pairs. Culture final organism is methicillin-resistant Staph aureus 2+. ASSESSMENT AND PLAN: This is a 76-year-old gentleman with probably diabetes with hemoglobin A1c 6.6 who presented to the emergency room because of swelling and pain and tenderness and redness on the right forehead for about 1 day's duration. Of course, upon questioning thoroughly, it becomes evident that the patient has had a fall maybe a year ago and has had swelling and lump in that area for a long time, but this problem just occurred very recently, according to the patient and the patient's maybe 24 hours. The culture has grown methicillin-resistant Staphylococcus aureus. I was in the line of thinking that maybe this is an infected dermoid cyst, but by physical examination I could not feel any obvious cyst, unless the cyst contents has been drained already. The chance still is there that this could be an infected dermoid cyst, but if not, this is a pustule formation over the scalp at the site of previous trauma with methicillin-resistant Staphylococcus aureus. The patient needs antibiotic treatment. Correctly has been started by infectious disease on vancomycin and today we changed the dressing with the nurse and a lot of pus has been drained and there are many holes that spontaneously have drainage of the abscess. I am not thinking of taking the patient to the OR for drainage because it is already draining and there is currently a lot of skin loss by exposing the patient to surgery now. I advised daily dressing b.i.d. with application of Silvadene cream on the wound and application of silver dressing on top of it and will change dressing every day and will wash the wound and will see how the effect of antibiotic and local treatment will help the healing of the wound. Still, he may need some debridement in the near future. Dictated By: ETHEL PHAN/ALBARO Conf#: [id number] DID#: [id number] MTDMary
[2016-12-27] VITALS (11 sets, daily range): BP systolic 114–127; BP diastolic 44–72; PULSE 60–72; RESP 16–20
[2016-12-27] MEDS: ALBUTEROL/IPRATROPIUM (NEB) 3 ML AMP HHN SCH ×4 (01:30→20:01)
[2016-12-27] MEDS: ACCU-CHEK XX SCH (02:00)
[2016-12-27] MEDS: VANCOMYCIN 1.5 GM in SOD CHLORIDE 0.9% 250 ML IVPB SCH (05:00)
[2016-12-27] MEDS: PANTOPRAZOLE (EC) 40 MG TAB PO SCH (06:07)
[2016-12-27] MEDS: LEVOFLOXACIN 500 MG TAB PO SCH (06:07)
[2016-12-27 07:26] LABS: ABNORMAL IP MESSAGE 1; BASOPHILS % 0.3 % (0.0-2.0); EOSINOPHILS # 0.1 10^3/ul (0.0-0.5); EOSINOPHILS % 1.2 % (0.0-7.0); HEMATOCRIT 29.6 % (42.0-52.0); HEMOGLOBIN 8.6 g/dl (14.0-18.0); MEAN CORPUSCULAR HEMOGLOBIN 21.9 pg (29.0-33.0); MEAN CORPUSCULAR HGB CONC 29.1 g/dl (32.0-37.0); MEAN CORPUSCULAR VOLUME 75.3 fl (82.0-101.0); MEAN PLATELET VOLUME 10.8 fl (7.4-10.4); MONOCYTE # 0.5 10^3/ul (0.3-0.9); MONOCYTES % 7.4 % (0.0-11.0); NEUTROPHIL # 5.7 10^3/ul (1.6-7.5); NEUTROPHILS % 77.6 % (39.0-77.0); PLATELET COUNT 195 10^3/UL (140-415); POSITIVE DIFF @See below; RED BLOOD COUNT 3.93 10^6/ul (4.70-6.10); RED CELL DISTRIBUTION WIDTH 19.6 % (11.5-14.5); WHITE BLOOD COUNT 7.3 10^3/ul (4.8-10.8)
[2016-12-27] MEDS: INSULIN ASPART [NOVOLOG] 3 ML PEN SC SCH ×7 (08:00→21:00)
[2016-12-27 08:01] LABS: CALCIUM 8.8 mg/dl (8.4-10.2); CREATININE 1.6 mg/dl (0.61-1.24); POTASSIUM 4.1 mmol/L (3.5-5.1)
[2016-12-27] MEDS: LISINOPRIL 5 MG TAB PO SCH (08:12)
[2016-12-27] MEDS: CLOPIDOGREL 75 MG TAB PO SCH (08:12)
[2016-12-27] MEDS: GLIMEPIRIDE 2 MG TAB PO SCH (08:12)
[2016-12-27] MEDS: LEVOTHYROXINE 150 MCG TAB PO SCH (08:13)
[2016-12-27] MEDS: SILVER SULFADIAZINE 1% 25 GM CR TOP SCH ×2 (08:13→21:16)
[2016-12-27] MEDS: VENLAFAXINE (XR) 75 MG CAP PO SCH ×2 (08:13→21:14)
[2016-12-27] MEDS: DIGOXIN 0.125 MG TAB PO SCH (08:14)
--- NOTE | 2016-12-27 13:51 | CONS ---
Date/Time of Note Date/Time of Note DATE: 12/27/16 TIME: 13:50 Consult Date/Type/Reason Admit Date/Time Dec 23, 2016 at 02:25 Initial Consult Date Type of Consultation: ID Objective Vital Signs Date Time Temp Pulse Resp B/P Pulse Ox O2 Delivery O2 Flow Rate FiO2 12/27/16 12:03 65 12/27/16 11:54 97.9 18 115/44 94 12/27/16 08:23 21 Intake and Output 12/26/16 12/26/16 12/27/16 15:00 23:00 07:00 Intake Total 500 ml Balance 500 ml Results/Medications Result Diagram: 12/27/16 0625 12/27/16 0626 Results 24 hrs Laboratory Tests Test 12/26/16 17:03 12/26/16 20:53 12/27/16 06:25 12/27/16 06:26 Bedside Glucose 91 129 White Blood Count 7.3 Red Blood Count 3.93 L Hemoglobin 8.6 L Hematocrit 29.6 L Mean Corpuscular Volume 75.3 L Mean Corpuscular Hemoglobin 21.9 L Mean Corpuscular Hemoglobin Concent 29.1 L Red Cell Distribution Width 19.6 H Platelet Count 195 Mean Platelet Volume 10.8 H Neutrophils % 77.6 H Lymphocytes % 13.0 L Monocytes % 7.4 Eosinophils % 1.2 Basophils % 0.3 Nucleated Red Blood Cells % 0.0 Neutrophils # 5.7 Lymphocytes # 1.0 Monocytes # 0.5 Eosinophils # 0.1 Basophils # 0.0 Nucleated Red Blood Cells # 0.0 Free Thyroxine 0.85 Sodium Level 137 Potassium Level 4.1 Chloride Level 104 Carbon Dioxide Level 24 Anion Gap 13 Blood Urea Nitrogen 18 Creatinine 1.60 H Glucose Level 102 Calcium Level 8.8 Test 12/27/16 08:10 12/27/16 12:02 Bedside Glucose 122 134 Medications Current Medications Morphine Sulfate (morphine) 4 mg Q4H PRN IV PAIN LEVEL 6-10; Start 12/23/16 at 05:00 Miscellaneous Information 1 ea NOTE XX ; Start 12/23/16 at 08:00 Glucose (Glutose) 15 gm Q15M PRN PO DECREASED GLUCOSE; Start 12/23/16 at 08:00 Glucose (Glutose) 22.5 gm Q15M PRN PO DECREASED GLUCOSE; Start 12/23/16 at 08: 00 Dextrose (D50w Syringe) 25 ml Q15M PRN IV DECREASED GLUCOSE; Start 12/23/16 at 08:00 Dextrose (D50w Syringe) 50 ml Q15M PRN IV DECREASED GLUCOSE; Start 12/23/16 at 08:00 Glucagon (Glucagen) 1 mg Q15M PRN IM DECREASED GLUCOSE; Start 12/23/16 at 08: 00 Glucose (Glutose) 15 gm Q15M PRN BUCCAL DECREASED GLUCOSE; Start 12/23/16 at 08:00 Acetaminophen (Tylenol Tab) 650 mg Q6H PRN PO PAIN AND OR ELEVATED TEMP Last administered on 12/24/16 17:40; Admin Dose 650 MG; Start 12/23/16 at 14:30 Acetaminophen/ Hydrocodone Bitart ([place] (5/325)) 1 tab Q6H PRN PO PAIN LEVEL 6 -10 Last administered on 12/26/16 14:55; Admin Dose 1 TAB; Start 12/24/16 at 23:00 Pantoprazole (Protonix Tab) 40 mg DAILY@06 PO Last administered on 12/27/16 06 :07; Admin Dose 40 MG; Start 12/26/16 at 06:00 Clopidogrel Bisulfate (plaVIX) 75 mg DAILY PO Last administered on 12/27/16 08 :12; Admin Dose 75 MG; Start 12/26/16 at 09:00 Levofloxacin (Levaquin) 500 mg DAILY@06 PO Last administered on 12/27/16 06:07 ; Admin Dose 500 MG; Start 12/26/16 at 06:00 Diagnostic Test (Pha) (Accu-Chek) 1 ea 02 XX ; Start 12/26/16 at 02:00 Atorvastatin Calcium (Lipitor) 80 mg HS PO Last administered on 12/26/16 20: 57; Admin Dose 80 MG; Start 12/26/16 at 21:00 Digoxin (Digoxin) 0.125 mg DAILY PO Last administered on 12/27/16 08:14; Admin Dose 0.125 MG; Start 12/26/16 at 09:00 Lisinopril (Zestril) 5 mg DAILY PO Last administered on 12/27/16 08:12; Admin Dose 5 MG; Start 12/26/16 at 09:00 Mirtazapine (Remeron) 15 mg HS PO Last administered on 12/26/16 20:57; Admin Dose 15 MG; Start 12/26/16 at 21:00 Venlafaxine HCl 150 mg 150 mg BID PO Last administered on 12/27/16 08:13; Admin Dose 150 MG; Start 12/26/16 at 09:00 Vancomycin HCl/ Sodium Chloride (Vancocin/NS) 250 ml @ 83.333 mls/ hr Q24H IVPB Last administered on 12/27/16 05:00; Admin Dose 83.333 MLS/HR; Start 12/27/16 at 05:00 Silver Sulfadiazine (Thermazene 1% 25 Gm) 1 applic BID TOP Last administered on 12/27/16 08:13; Admin Dose 1 APPLIC; Start 12/26/16 at 21:00 Miscellaneous Information (*Rx Drug Level Order Reminder*) VANCOMYCIN TROUGH AT 0400 ONCE ONCE XX ; Start 12/28/16 at 04:00; Stop 12/28/16 at 04:01 Assessment/Plan Chief Complaint/Hosp Course SUBJECTIVE: No events overnight. The patient is awake, looks comfortable, no fevers. MICROBIOLOGY: Forehead wound grew MRSA. ANTIMICROBIALS: The patient is on IV vancomycin. PHYSICAL EXAMINATION: GENERAL: Well-developed, elderly man in no distress. HEENT: Head atraumatic, normocephalic. Sclerae anicteric. Buccal mucosa dry. NECK: Supple. CHEST: Rise symmetrical. Breath sounds diminished to bases. HEART: S1, S2. ABDOMEN: Soft, bowel tones present. EXTREMITIES: Without cyanosis. SKIN: Dry, pale. There is erythema on the forehead. ASSESSMENT: 1. Methicillin-resistant Staphylococcus aureus cellulitis of the forehead with draining abscess. 2. Hypertension. 3. Chronic obstructive pulmonary disease. 4. Ischemic cardiomyopathy. 5. Chronic kidney disease stage III. PLAN: The patient remains stable. We will continue him on current antibiotics , add Rifampin, continue local wound care per surgical rec-s==> no surgery indicated at this time. [facility] staff Problems: ILENE JUDGE NP Dec 27, 2016 13:51
[2016-12-27] MEDS: RIFAMPIN 300 MG CAP PO SCH (15:14)
[2016-12-27] MEDS: HYDROCODONE/APAP (5/325) TAB PO PRN (15:15)
--- NOTE | 2016-12-27 17:15 | PN ---
Date/Time of Note Date/Time of Note DATE: 12/27/16 TIME: 17:14 Assessment/Plan VTE Prophylaxis VTE Prophylaxis Intervention: SCD's Lines/Catheters [facility]from [facility] Saline Lock Urinary Cath still in place: No Assessment/Plan Chief Complaint/Hosp Course Assessment/Plan - Scalp cellulitis/abscess. Wound cx +MRSA. Continue Vanco. Dr. Oliva is following in infection disease consultation. Dr. Saldivar is following in general surgery. - Ischemic cardiomyopathy. Continue Coreg per cardiology recs. Dr. Choudhury is asked to see patient in cardiology consultation. - Bradycardia. Continue telemetry monitoring. - Chronic kidney disease stage III. Monitor renal function and avoid nephrotoxic drugs. - Coronary artery disease with history of stent placement. Continue Plavix. - Chronic obstructive pulmonary disease. - Diabetes mellitus, hemoglobin A1c is 6.6, continue Amaryl and NovoLog per sliding scale. Further recommendations based on clinical course. Plan of care discussed with Dr. Giron Problems: Exam/Review of Systems Vital Signs Vitals Vital Signs Date Time Temp Pulse Resp B/P Pulse Ox O2 Delivery O2 Flow Rate FiO2 12/27/16 16:07 72 12/27/16 15:51 97.8 18 124/56 95 12/27/16 08:23 21 Intake and Output 12/26/16 12/26/16 12/27/16 15:00 23:00 07:00 Intake Total 500 ml Balance 500 ml Exam Constitutional: alert, oriented Respiratory: normal air movement Cardiovascular: nl pulses Gastrointestinal: non-tender, soft Extremities: normal pulses Neurological: nl mental status Skin: other (scalp wound) Results Result Diagram: 12/27/16 0625 12/27/16 0626 Results 24 hrs Laboratory Tests Test 12/26/16 20:53 12/27/16 06:25 12/27/16 06:26 12/27/16 08:10 Bedside Glucose 129 122 White Blood Count 7.3 Red Blood Count 3.93 L Hemoglobin 8.6 L Hematocrit 29.6 L Mean Corpuscular Volume 75.3 L Mean Corpuscular Hemoglobin 21.9 L Mean Corpuscular Hemoglobin Concent 29.1 L Red Cell Distribution Width 19.6 H Platelet Count 195 Mean Platelet Volume 10.8 H Neutrophils % 77.6 H Lymphocytes % 13.0 L Monocytes % 7.4 Eosinophils % 1.2 Basophils % 0.3 Nucleated Red Blood Cells % 0.0 Neutrophils # 5.7 Lymphocytes # 1.0 Monocytes # 0.5 Eosinophils # 0.1 Basophils # 0.0 Nucleated Red Blood Cells # 0.0 Free Thyroxine 0.85 Sodium Level 137 Potassium Level 4.1 Chloride Level 104 Carbon Dioxide Level 24 Anion Gap 13 Blood Urea Nitrogen 18 Creatinine 1.60 H Glucose Level 102 Calcium Level 8.8 Test 12/27/16 12:02 Bedside Glucose 134 Medications Medications Current Medications Morphine Sulfate (morphine) 4 mg Q4H PRN IV PAIN LEVEL 6-10; Start 12/23/16 at 05:00 Miscellaneous Information 1 ea NOTE XX ; Start 12/23/16 at 08:00 Glucose (Glutose) 15 gm Q15M PRN PO DECREASED GLUCOSE; Start 12/23/16 at 08:00 Glucose (Glutose) 22.5 gm Q15M PRN PO DECREASED GLUCOSE; Start 12/23/16 at 08: 00 Dextrose (D50w Syringe) 25 ml Q15M PRN IV DECREASED GLUCOSE; Start 12/23/16 at 08:00 Dextrose (D50w Syringe) 50 ml Q15M PRN IV DECREASED GLUCOSE; Start 12/23/16 at 08:00 Glucagon (Glucagen) 1 mg Q15M PRN IM DECREASED GLUCOSE; Start 12/23/16 at 08: 00 Glucose (Glutose) 15 gm Q15M PRN BUCCAL DECREASED GLUCOSE; Start 12/23/16 at 08:00 Acetaminophen (Tylenol Tab) 650 mg Q6H PRN PO PAIN AND OR ELEVATED TEMP Last administered on 12/24/16 17:40; Admin Dose 650 MG; Start 12/23/16 at 14:30 Acetaminophen/ Hydrocodone Bitart ([place] (5/325)) 1 tab Q6H PRN PO PAIN LEVEL 6 -10 Last administered on 12/27/16 15:15; Admin Dose 1 TAB; Start 12/24/16 at 23:00 Pantoprazole (Protonix Tab) 40 mg DAILY@06 PO Last administered on 12/27/16 06 :07; Admin Dose 40 MG; Start 12/26/16 at 06:00 Clopidogrel Bisulfate (plaVIX) 75 mg DAILY PO Last administered on 12/27/16 08 :12; Admin Dose 75 MG; Start 12/26/16 at 09:00 Levofloxacin (Levaquin) 500 mg DAILY@06 PO Last administered on 12/27/16 06:07 ; Admin Dose 500 MG; Start 12/26/16 at 06:00 Diagnostic Test (Pha) (Accu-Chek) 1 ea 02 XX ; Start 12/26/16 at 02:00 Atorvastatin Calcium (Lipitor) 80 mg HS PO Last administered on 12/26/16 20: 57; Admin Dose 80 MG; Start 12/26/16 at 21:00 Digoxin (Digoxin) 0.125 mg DAILY PO Last administered on 12/27/16 08:14; Admin Dose 0.125 MG; Start 12/26/16 at 09:00 Lisinopril (Zestril) 5 mg DAILY PO Last administered on 12/27/16 08:12; Admin Dose 5 MG; Start 12/26/16 at 09:00 Mirtazapine (Remeron) 15 mg HS PO Last administered on 12/26/16 20:57; Admin Dose 15 MG; Start 12/26/16 at 21:00 Venlafaxine HCl 150 mg 150 mg BID PO Last administered on 12/27/16 08:13; Admin Dose 150 MG; Start 12/26/16 at 09:00 Vancomycin HCl/ Sodium Chloride (Vancocin/NS) 250 ml @ 83.333 mls/ hr Q24H IVPB Last administered on 12/27/16 05:00; Admin Dose 83.333 MLS/HR; Start 12/27/16 at 05:00 Silver Sulfadiazine (Thermazene 1% 25 Gm) 1 applic BID TOP Last administered on 12/27/16 08:13; Admin Dose 1 APPLIC; Start 12/26/16 at 21:00 Miscellaneous Information (*Rx Drug Level Order Reminder*) VANCOMYCIN TROUGH AT 0400 ONCE ONCE XX ; Start 12/28/16 at 04:00; Stop 12/28/16 at 04:01 Rifampin (Rifampin) 600 mg DAILY PO Last administered on 12/27/16 15:14; Admin Dose 600 MG; Start 12/27/16 at 14:00 SELMA ELMORE Dec 27, 2016 17:15
[2016-12-27] MEDS: ATORVASTATIN 80 MG TAB PO SCH (21:14)
[2016-12-27] MEDS: MIRTAZAPINE 15 MG TAB PO SCH (21:14)
[2016-12-28] VITALS (15 sets, daily range): BP systolic 108–143; BP diastolic 55–72; PULSE 57–125; RESP 18–22
[2016-12-28] MEDS: ALBUTEROL/IPRATROPIUM (NEB) 3 ML AMP HHN SCH ×4 (01:03→20:39)
[2016-12-28] MEDS: ACCU-CHEK XX SCH (01:09)
[2016-12-28 04:34] LABS: CHOL/HDL RATIO 6.7 RATIO; CREATININE 1.68 mg/dl (0.61-1.24)
--- NOTE | 2016-12-28 04:37 | CONS ---
DATE OF ADMISSION: 12/23/2016 DATE OF CONSULTATION: 12/27/2016 CARDIOLOGY CONSULTATION REASON FOR CONSULTATION: Cardiomyopathy, history of stents, preoperative evaluation. REQUESTING PHYSICIAN: Dr. Jos Foster and Dr. Wright from the surgical service. HISTORY OF PRESENT ILLNESS: Mr. Snyder is a 76-year-old male with a history of ischemic cardiomyopat hy, last known EF approximately 40% in 2016, prior PTCA and stent placements, most recently 2 to 3 y ears prior per patient, history of transcatheter aortic valve replacement in 2016 at [facility], chronic obstructive pulmonary disease, chronic kidney disease, diabetes mellitus who had i nitially presented with scalp infection and findings of scalp abscess. Initially upon arrival, temp erature 98.3, blood pressure 133/61, pulse 79, respiratory 20, saturating 98%. The patient's labs r evealed white count 14.4, hemoglobin 8.3, platelet count 271, a sodium 143, potassium , creatin ine 1.7, BUN 16. Troponin negative. INR of 1.0. The patient underwent a chest x-ray revealing mil d congestive heart failure. The patient's electrocardiogram revealed sinus rhythm at a rate of 67 w ith IVCD, PACs, nonspecific ST-T abnormalities. The patient was subsequently admitted to the floor and since admit to the floor, relatively stable vital signs. The patient denies chest pain, shortne ss of breath. PAST MEDICAL HISTORY: As above in HPI. MEDICATIONS CURRENTLY IN HOSPITAL: 1. Rifampin. 2. Vancomycin. 3. Lipitor 80 mg at bedtime. 4. Remeron. 5. Plavix 75 mg daily. 6. Digoxin 0.125 mg daily. 7. Zestril 5 mg daily. 8. Effexor 150 mg b.i.d. 9. Amaryl 2 mg at breakfast. 10. Synthroid 150 mcg with breakfast. 11. Protonix 40 mg daily. 12. Levofloxacin. 13. Insulin sliding scale. 14. DuoNeb. 15. Tylenol. ALLERGIES: 1. IODINE 2. PROCAINAMIDE. SOCIAL HISTORY: Positive tobacco, positive ETOH. No illicit drug use. FAMILY HISTORY: Negative for sudden cardiac or early CAD. REVIEW OF SYSTEMS: As above in HPI. CONSTITUTIONAL: No fevers, chills. PULMONARY: No current shortness of breath. CARDIOVASCULAR: No chest pain. History of cardiomyopathy. GASTROINTESTINAL: No vomiting. GENITOURINARY: No hematuria. MUSCULOSKELETAL: Degenerative joint disease. PSYCHIATRIC: Depression. NEUROLOGIC: No documented CVA. PHYSICAL EXAMINATION VITAL SIGNS: Temperature of 97.8, blood pressure 124/56, pulse 64, respiratory rate 18, saturating 95%. GENERAL: The patient is alert, awake, no acute distress. NECK: JVP approximately 8 cm of water. SCALP: covered dressing. CHEST: Fair air movement throughout. HEART: Regular rate and rhythm. Normal S1, S2, I/ systolic murmur. ABDOMEN: Positive bowel sounds, soft. EXTREMITIES: No pitting edema, 1+ pulses bilaterally, posterior tibial. LABORATORIES: As above in HPI with most recently from today, white cells 7.3, hemoglobin 8.6, plate let count 195. IMAGING STUDIES: As above in HPI with additionally head CT revealing no acute intracranial patholog y, moderate generalized volume loss, mild chronic microvascular changes, chronic right occipital lob e infarction, subgaleal hematoma on the right forehead. ELECTROCARDIOGRAM: As above in HPI. No further electrocardiograms for my review at this time. IMPRESSION: 1. Preoperative evaluation prior to surgical intervention for scalp abscess. 2. History of ischemic cardiomyopathy, last known ejection fraction approximately 40% by echo 2016. 3. Hypertension. 4. History of percutaneous transluminal coronary angioplasty and stent placement multiple times wit h most recent approximately 2 to 3 years prior per patient on Plavix. 5. History of transcatheter aortic valve replacement in 2016. 6. Scalp abscess. 7. Diabetes mellitus. 8. Chronic obstructive pulmonary disease. 9. Ongoing tobacco usage. 10. Anemia. 11. Renal failure. RECOMMENDATIONS: 1. At this time, would maintain the patient on telemetry monitoring. Follow rhythm and rate contro l closely. 2. Would complete a rule out for myocardial infarction to ensure the patient's EKG abnormalities ar e chronic in nature and not due to any recent acute coronary syndrome in anticipation of upcoming quinn rgery. 3. Would continue to check serial EKGs to assess for any significant ongoing changes, thus an EKG i n the morning, EKG for any complaints of chest pain or change in rhythm. 4. Continue the patient's current Zestril for control of blood pressure with consideration to beta cecil in this patient with known cardiomyopathy ischemia. 5. Continue the patient's Plavix at this time for stent patency. 6. Continue the patient's digoxin but check a digoxin level. 7. Continue the patient's antibiotics with local wound care. 8 Continue the patient's statin therapy and adjust it according to a fasting lipid panel that chelita mooney be checked. 9. Check TSH to find the patient's current thyroid state and will repeat 2D echo to reassess the pa tient's ejection fraction, wall motion and any major abnormalities. Thank you for allowing me to take part in the care of this patient. I will continue to follow very closely with you with further recommendations to be made as the patient progresses through his [facility] clinical course. Dictated By: JACLYN PATINO/ALBARO Conf#: [id number] DID#: [id number] CC: ETHEL WRIGHT MD; JOS FOSTER MD;*EndCC*
[2016-12-28] MEDS: PANTOPRAZOLE (EC) 40 MG TAB PO SCH (05:14)
[2016-12-28] MEDS: VANCOMYCIN 1.5 GM in SOD CHLORIDE 0.9% 250 ML IVPB SCH (05:14)
[2016-12-28] MEDS: LEVOFLOXACIN 500 MG TAB PO SCH (05:14)
[2016-12-28] MEDS: LEVOTHYROXINE 150 MCG TAB PO SCH (06:00)
--- NOTE | 2016-12-28 07:04 | PN ---
DATE: 12/27/2016 SUBJECTIVE: No new complaint. He is slightly better. OBJECTIVE: VITAL SIGNS: Temperature 97.9, heart rate 62 regular, respiratory rate 18, blood pressure 105/____, saturation 94% on room air. LABORATORY DATA: Sodium, potassium, normal, BUN 18, creatinine increased to 1.60. WBC 7300 normal % differential. Neutrophils, which is almost normal, hemoglobin 8.6, hematocrit 29.6. Platelet count is 195. Dressing was changed along with nurse Anna. The wound is slightly better, cellulitis is getting slightly better. Still there is some drainage of yellowish pus upon mild pressure on the wound through several holes. ASSESSMENT AND PLAN: A 76-year-old gentleman with a remote history of fall onto the forehead, possible hematoma subgalial, with history of one day swelling and drainage from the forehead. The patient was found to have an abscess and culture grew MRSA. The patient was on Vancomycin, also the patient had many medical problems including coronary stents several times. The patient had increased creatinine on admission, creatinine was 1.48, now today is 1.60. . We are going to get a cardiology consult in the case we have to do debridement in the operating room. Meanwhile, continue the dressing with Silvadene cream b.i.d. Dictated By: ETHEL PHAN/ALBARO Conf#: [id number] DID#: [id number] MTDMary
[2016-12-28] MEDS: INSULIN ASPART [NOVOLOG] 3 ML PEN SC SCH ×8 (08:00→20:45)
[2016-12-28] MEDS: GLIMEPIRIDE 2 MG TAB PO SCH (08:56)
[2016-12-28] MEDS: LISINOPRIL 5 MG TAB PO SCH (08:58)
[2016-12-28] MEDS: DIGOXIN 0.125 MG TAB PO SCH (08:59)
[2016-12-28] MEDS: RIFAMPIN 300 MG CAP PO SCH (08:59)
[2016-12-28] MEDS: CLOPIDOGREL 75 MG TAB PO SCH (09:00)
[2016-12-28] MEDS: SILVER SULFADIAZINE 1% 25 GM CR TOP SCH ×2 (09:00→20:43)
[2016-12-28] MEDS ORDERED: METOPROLOL (XL) 25 MG TAB PO SCH (09:00)
[2016-12-28] MEDS: VENLAFAXINE (XR) 75 MG CAP PO SCH ×2 (09:00→20:40)
--- NOTE | 2016-12-28 14:36 | CONS ---
Date/Time of Note Date/Time of Note DATE: 12/28/16 TIME: 14:35 Consult Date/Type/Reason Admit Date/Time Dec 23, 2016 at 02:25 Type of Consultation: ID Objective Vital Signs Date Time Temp Pulse Resp B/P Pulse Ox O2 Delivery O2 Flow Rate FiO2 12/28/16 14:12 53 18 95 21 12/28/16 11:50 98.6 122/56 Intake and Output 12/27/16 12/27/16 12/28/16 15:00 23:00 07:00 Intake Total 800 ml 933.33 ml Output Total 500 ml 975 ml Balance 300 ml -41.67 ml Results/Medications Result Diagram: 12/27/16 0625 12/28/16 0343 Results 24 hrs Laboratory Tests Test 12/27/16 17:10 12/27/16 19:24 12/27/16 21:12 12/28/16 00:48 Bedside Glucose 140 118 Thyroid Stimulating Hormone (TSH) 26.200 H Troponin I 0.043 Test 12/28/16 03:43 12/28/16 07:53 12/28/16 12:11 Blood Urea Nitrogen 20 Creatinine 1.68 H Troponin I 0.034 Triglycerides Level 111 Cholesterol Level 135 LDL Cholesterol, Calculated 93 HDL Cholesterol 20 L Cholesterol/HDL Ratio 6.7 Vancomycin Level Trough 8.8 L Bedside Glucose 92 78 Medications Current Medications Morphine Sulfate (morphine) 4 mg Q4H PRN IV PAIN LEVEL 6-10; Start 12/23/16 at 05:00 Miscellaneous Information 1 ea NOTE XX ; Start 12/23/16 at 08:00 Glucose (Glutose) 15 gm Q15M PRN PO DECREASED GLUCOSE; Start 12/23/16 at 08:00 Glucose (Glutose) 22.5 gm Q15M PRN PO DECREASED GLUCOSE; Start 12/23/16 at 08: 00 Dextrose (D50w Syringe) 25 ml Q15M PRN IV DECREASED GLUCOSE; Start 12/23/16 at 08:00 Dextrose (D50w Syringe) 50 ml Q15M PRN IV DECREASED GLUCOSE; Start 12/23/16 at 08:00 Glucagon (Glucagen) 1 mg Q15M PRN IM DECREASED GLUCOSE; Start 12/23/16 at 08: 00 Glucose (Glutose) 15 gm Q15M PRN BUCCAL DECREASED GLUCOSE; Start 12/23/16 at 08:00 Acetaminophen (Tylenol Tab) 650 mg Q6H PRN PO PAIN AND OR ELEVATED TEMP Last administered on 12/24/16 17:40; Admin Dose 650 MG; Start 12/23/16 at 14:30 Acetaminophen/ Hydrocodone Bitart ([place] (5/325)) 1 tab Q6H PRN PO PAIN LEVEL 6 -10 Last administered on 12/27/16 15:15; Admin Dose 1 TAB; Start 12/24/16 at 23:00 Pantoprazole (Protonix Tab) 40 mg DAILY@06 PO Last administered on 12/28/16 05 :14; Admin Dose 40 MG; Start 12/26/16 at 06:00 Clopidogrel Bisulfate (plaVIX) 75 mg DAILY PO Last administered on 12/28/16 09 :00; Admin Dose 75 MG; Start 12/26/16 at 09:00 Levofloxacin (Levaquin) 500 mg DAILY@06 PO Last administered on 12/28/16 05:14 ; Admin Dose 500 MG; Start 12/26/16 at 06:00 Diagnostic Test (Pha) (Accu-Chek) 1 ea 02 XX ; Start 12/26/16 at 02:00 Atorvastatin Calcium (Lipitor) 80 mg HS PO Last administered on 12/27/16 21:14 ; Admin Dose 80 MG; Start 12/26/16 at 21:00 Digoxin (Digoxin) 0.125 mg DAILY PO Last administered on 12/28/16 08:59; Admin Dose 0.125 MG; Start 12/26/16 at 09:00 Lisinopril (Zestril) 5 mg DAILY PO Last administered on 12/28/16 08:58; Admin Dose 5 MG; Start 12/26/16 at 09:00 Mirtazapine (Remeron) 15 mg HS PO Last administered on 12/27/16 21:14; Admin Dose 15 MG; Start 12/26/16 at 21:00 Venlafaxine HCl (Effexor Xr) 150 mg BID PO Last administered on 12/28/16 09:00 ; Admin Dose 150 MG; Start 12/26/16 at 09:00 Silver Sulfadiazine (Thermazene 1% 25 Gm) 1 applic BID TOP Last administered on 12/28/16 09:00; Admin Dose 1 APPLIC; Start 12/26/16 at 21:00 Rifampin (Rifampin) 600 mg DAILY PO Last administered on 12/28/16 08:59; Admin Dose 600 MG; Start 12/27/16 at 14:00 Metoprolol Succinate 12.5 mg 12.5 mg DAILY PO Last administered on 12/28/16 08 :58; Admin Dose 12.5 MG; Start 12/28/16 at 09:00 Vancomycin HCl/ Sodium Chloride (Vancocin/NS) 500 ml @ 125 mls/hr Q24H IVPB ; Start 12/29/16 at 04:00 Assessment/Plan Chief Complaint/Hosp Course SUBJECTIVE: No events overnight, looks comfortable, no fevers. MICROBIOLOGY: Forehead wound grew MRSA. ANTIMICROBIALS: Rifampin, IV vancomycin. PHYSICAL EXAMINATION: GENERAL: Well-developed, elderly man in no distress. HEENT: Head atraumatic, normocephalic. Sclerae anicteric. Buccal mucosa dry. NECK: Supple. CHEST: Rise symmetrical. Breath sounds diminished to bases. HEART: S1, S2. ABDOMEN: Soft, bowel tones present. EXTREMITIES: Without cyanosis. SKIN: Dry, pale. There is erythema on the forehead. ASSESSMENT: 1. Methicillin-resistant Staphylococcus aureus cellulitis of the forehead with self- draining abscess. 2. Hypertension. 3. Chronic obstructive pulmonary disease. 4. Ischemic cardiomyopathy. 5. Chronic kidney disease stage III. PLAN: The patient remains stable. Continue abx, local wound care per surgical rec-s [facility] staff Problems: ILENE JUDGE NP Dec 28, 2016 14:36
--- NOTE | 2016-12-28 18:35 | CONS ---
Date/Time of Note Date/Time of Note DATE: 12/28/16 TIME: 18:30 Assessment/Plan Assessment/Plan Chief Complaint/Hosp Course IMPRESSION: 1. Preoperative evaluation prior to surgical intervention for scalp abscess.- negative trop x 3 2. History of ischemic cardiomyopathy, last known ejection fraction approximately 40% by echo 2015. 3. Hypertension. 4. History of percutaneous transluminal coronary angioplasty and stent placement multiple times with most recent approximately 2 to 3 years prior per patient on Plavix. 5. History of transcatheter aortic valve replacement in 2016. 6. Scalp abscess. 7. Diabetes mellitus. 8. Chronic obstructive pulmonary disease. 9. Ongoing tobacco usage. 10. Anemia. 11. Renal failure. 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 Recc: -Tele -local wound care -Continue abx;'s -Continue BB/ACEI -Continue digoxiin -Continue plavix -Decrease dose of statin -will f/u echo -am pre-op lexiscan Problems: Consultation Date/Type/Reason Admit Date/Time Dec 23, 2016 at 02:25 Initial Consult Date 12/27/2016 Type of Consultation: cardiology Reason for Consultation Pre-op/cardiomyopathy Referring Provider: JOS FOSTER MD Exam/Review of Systems Vital Signs Vitals Vital Signs Date Time Temp Pulse Resp B/P Pulse Ox O2 Delivery O2 Flow Rate FiO2 12/28/16 16:04 62 12/28/16 16:02 99.3 18 125/60 94 12/28/16 14:12 21 Intake and Output 12/27/16 12/27/16 12/28/16 15:00 23:00 07:00 Intake Total 800 ml 933.33 ml Output Total 500 ml 975 ml Balance 300 ml -41.67 ml Exam Review of Systems: CONSTITUTIONAL: No fevers, chills. PULMONARY: No sob CARDIOVASCULAR: No chest pain/palpitations GASTROINTESTINAL: No nausea/vomiting. GENITOURINARY: No hematuria/dysuria. MUSCULOSKELETAL: scalp pain PSYCHIATRIC: The patient denies depression. NEUROLOGIC: No weakness Constitutional: alert Psych: no complaints Head: normocephalic ENMT: mucosa pink and moist Neck: jvd (9 cm water), supple Respiratory: clear to auscultation Cardiovascular: regular rate and rhythm Gastrointestinal: non-tender, soft Musculoskeletal: muscle tone (normal) Extremities: edema (none) Neurological: other (No focal deficits) Results Result Diagram: 12/27/16 0625 12/28/16 0343 Results 24 hrs Laboratory Tests Test 12/27/16 19:24 12/27/16 21:12 12/28/16 00:48 12/28/16 03:43 Thyroid Stimulating Hormone (TSH) 26.200 H Bedside Glucose 118 Troponin I 0.043 0.034 Blood Urea Nitrogen 20 Creatinine 1.68 H Triglycerides Level 111 Cholesterol Level 135 LDL Cholesterol, Calculated 93 HDL Cholesterol 20 L Cholesterol/HDL Ratio 6.7 Vancomycin Level Trough 8.8 L Test 12/28/16 07:53 12/28/16 12:11 12/28/16 17:21 Bedside Glucose 92 78 76 Medications Medications Current Medications Morphine Sulfate (morphine) 4 mg Q4H PRN IV PAIN LEVEL 6-10; Start 12/23/16 at 05:00 Miscellaneous Information 1 ea NOTE XX ; Start 12/23/16 at 08:00 Glucose (Glutose) 15 gm Q15M PRN PO DECREASED GLUCOSE; Start 12/23/16 at 08:00 Glucose (Glutose) 22.5 gm Q15M PRN PO DECREASED GLUCOSE; Start 12/23/16 at 08: 00 Dextrose (D50w Syringe) 25 ml Q15M PRN IV DECREASED GLUCOSE; Start 12/23/16 at 08:00 Dextrose (D50w Syringe) 50 ml Q15M PRN IV DECREASED GLUCOSE; Start 12/23/16 at 08:00 Glucagon (Glucagen) 1 mg Q15M PRN IM DECREASED GLUCOSE; Start 12/23/16 at 08: 00 Glucose (Glutose) 15 gm Q15M PRN BUCCAL DECREASED GLUCOSE; Start 12/23/16 at 08:00 Acetaminophen (Tylenol Tab) 650 mg Q6H PRN PO PAIN AND OR ELEVATED TEMP Last administered on 12/24/16 17:40; Admin Dose 650 MG; Start 12/23/16 at 14:30 Acetaminophen/ Hydrocodone Bitart ([place] (5/325)) 1 tab Q6H PRN PO PAIN LEVEL 6 -10 Last administered on 12/27/16 15:15; Admin Dose 1 TAB; Start 12/24/16 at 23:00 Pantoprazole (Protonix Tab) 40 mg DAILY@06 PO Last administered on 12/28/16 05 :14; Admin Dose 40 MG; Start 12/26/16 at 06:00 Clopidogrel Bisulfate (plaVIX) 75 mg DAILY PO Last administered on 12/28/16 09 :00; Admin Dose 75 MG; Start 12/26/16 at 09:00 Levofloxacin (Levaquin) 500 mg DAILY@06 PO Last administered on 12/28/16 05:14 ; Admin Dose 500 MG; Start 12/26/16 at 06:00 Diagnostic Test (Pha) (Accu-Chek) 1 ea 02 XX ; Start 12/26/16 at 02:00 Atorvastatin Calcium (Lipitor) 80 mg HS PO Last administered on 12/27/16 21:14 ; Admin Dose 80 MG; Start 12/26/16 at 21:00 Digoxin (Digoxin) 0.125 mg DAILY PO Last administered on 12/28/16 08:59; Admin Dose 0.125 MG; Start 12/26/16 at 09:00 Lisinopril (Zestril) 5 mg DAILY PO Last administered on 12/28/16 08:58; Admin Dose 5 MG; Start 12/26/16 at 09:00 Mirtazapine (Remeron) 15 mg HS PO Last administered on 12/27/16 21:14; Admin Dose 15 MG; Start 12/26/16 at 21:00 Venlafaxine HCl (Effexor Xr) 150 mg BID PO Last administered on 12/28/16 09:00 ; Admin Dose 150 MG; Start 12/26/16 at 09:00 Silver Sulfadiazine (Thermazene 1% 25 Gm) 1 applic BID TOP Last administered on 12/28/16 09:00; Admin Dose 1 APPLIC; Start 12/26/16 at 21:00 Rifampin (Rifampin) 600 mg DAILY PO Last administered on 12/28/16 08:59; Admin Dose 600 MG; Start 12/27/16 at 14:00 Metoprolol Succinate 12.5 mg 12.5 mg DAILY PO Last administered on 12/28/16 08 :58; Admin Dose 12.5 MG; Start 12/28/16 at 09:00 Vancomycin HCl/ Sodium Chloride (Vancocin/NS) 500 ml @ 125 mls/hr Q24H IVPB ; Start 12/29/16 at 04:00 JACLYN RODRIGUEZ Dec 28, 2016 18:35
--- NOTE | 2016-12-28 18:43 | CONS ---
Date/Time of Note Date/Time of Note DATE: 12/28/16 TIME: 18:38 Assessment/Plan Assessment/Plan Additional Assessment/Plan 1. MELINDA on CKD Due to prerenal azotemia + ATN 2. MRSA forehead cellulitis with Abscess 3. H/o CKD III Due to HTN 4. HTN 5. Bipolar 6. DM II Plan : IV abx vancomycin , renally dose it , monitor it CKD work up including urine studies and renal US ID following will monitor cr in AM and decide if pt needs IVF hydration will follow up Thanks for consultation. Consultation Date/Type/Reason Admit Date/Time Dec 23, 2016 at 02:25 Date of Consultation: Dec 28, 2016 Type of Consultation: NEPHROLOGY Reason for Consultation acute kidney Injury 1.68, on CKD Referring Provider: JOS FOSTER MD Hx of Present Illness pt admitted with forehead cellulitis with self draining abscess, seen by ID, started on IV abx, noted to have Rising Cr and renal has been consulted for MELINDA on CKD Constitutional: no complaints Eyes: redness ENT: no complaints Respiratory: no complaints Cardiovascular: no complaints Gastrointestinal: no complaints Genitourinary: no complaints Musculoskeletal: no complaints Skin: no complaints Neurologic: no complaints Endocrine: no complaints Lymphatic: no complaints Psychological: no complaints Immunologic: no complaints Past Medical History Medical History: coronary artery disease, diabetes, hypertension, renal disease , other (BPH) Past Surgical History Past Surgical Hx: angioplasty, other (Bilateral knee, Cholecystectomy ) Family History Significant Family History: no pertinent family hx Social History Alcohol Use: none Smoking Status: Never smoker Drug Use: none Exam/Review of Systems Vital Signs Vitals Vital Signs Date Time Temp Pulse Resp B/P Pulse Ox O2 Delivery O2 Flow Rate FiO2 12/28/16 16:04 62 12/28/16 16:02 99.3 18 125/60 94 12/28/16 14:12 21 Intake and Output 12/27/16 12/27/16 12/28/16 15:00 23:00 07:00 Intake Total 800 ml 933.33 ml Output Total 500 ml 975 ml Balance 300 ml -41.67 ml Exam Constitutional: alert Psych: no complaints Head: normocephalic Eyes: nl conjunctiva ENMT: nl external ears & nose Neck: non-tender, supple Respiratory: clear to auscultation, normal air movement Cardiovascular: nl pulses, regular rate and rhythm Gastrointestinal: non-tender, soft Musculoskeletal: nl extremities to inspection, nl gait and stance Extremities: normal pulses Neurological: ENERGY [employer]ER II-XII intact, nl mental status, nl speech, nl strength Results Result Diagram: 12/27/16 0625 12/28/16 0343 Results 24 hrs Laboratory Tests Test 12/27/16 19:24 12/27/16 21:12 12/28/16 00:48 12/28/16 03:43 Thyroid Stimulating Hormone (TSH) 26.200 H Bedside Glucose 118 Troponin I 0.043 0.034 Blood Urea Nitrogen 20 Creatinine 1.68 H Triglycerides Level 111 Cholesterol Level 135 LDL Cholesterol, Calculated 93 HDL Cholesterol 20 L Cholesterol/HDL Ratio 6.7 Vancomycin Level Trough 8.8 L Test 12/28/16 07:53 12/28/16 12:11 12/28/16 17:21 Bedside Glucose 92 78 76 Medications Medications Current Medications Morphine Sulfate (morphine) 4 mg Q4H PRN IV PAIN LEVEL 6-10; Start 12/23/16 at 05:00 Miscellaneous Information 1 ea NOTE XX ; Start 12/23/16 at 08:00 Glucose (Glutose) 15 gm Q15M PRN PO DECREASED GLUCOSE; Start 12/23/16 at 08:00 Glucose (Glutose) 22.5 gm Q15M PRN PO DECREASED GLUCOSE; Start 12/23/16 at 08: 00 Dextrose (D50w Syringe) 25 ml Q15M PRN IV DECREASED GLUCOSE; Start 12/23/16 at 08:00 Dextrose (D50w Syringe) 50 ml Q15M PRN IV DECREASED GLUCOSE; Start 12/23/16 at 08:00 Glucagon (Glucagen) 1 mg Q15M PRN IM DECREASED GLUCOSE; Start 12/23/16 at 08: 00 Glucose (Glutose) 15 gm Q15M PRN BUCCAL DECREASED GLUCOSE; Start 12/23/16 at 08:00 Acetaminophen (Tylenol Tab) 650 mg Q6H PRN PO PAIN AND OR ELEVATED TEMP Last administered on 12/24/16 17:40; Admin Dose 650 MG; Start 12/23/16 at 14:30 Acetaminophen/ Hydrocodone Bitart ([place] (5/325)) 1 tab Q6H PRN PO PAIN LEVEL 6 -10 Last administered on 12/27/16 15:15; Admin Dose 1 TAB; Start 12/24/16 at 23:00 Pantoprazole (Protonix Tab) 40 mg DAILY@06 PO Last administered on 12/28/16 05 :14; Admin Dose 40 MG; Start 12/26/16 at 06:00 Clopidogrel Bisulfate (plaVIX) 75 mg DAILY PO Last administered on 12/28/16 09 :00; Admin Dose 75 MG; Start 12/26/16 at 09:00 Levofloxacin (Levaquin) 500 mg DAILY@06 PO Last administered on 12/28/16 05:14 ; Admin Dose 500 MG; Start 12/26/16 at 06:00 Diagnostic Test (Pha) (Accu-Chek) 1 ea 02 XX ; Start 12/26/16 at 02:00 Digoxin (Digoxin) 0.125 mg DAILY PO Last administered on 12/28/16 08:59; Admin Dose 0.125 MG; Start 12/26/16 at 09:00 Lisinopril (Zestril) 5 mg DAILY PO Last administered on 12/28/16 08:58; Admin Dose 5 MG; Start 12/26/16 at 09:00 Mirtazapine (Remeron) 15 mg HS PO Last administered on 12/27/16 21:14; Admin Dose 15 MG; Start 12/26/16 at 21:00 Venlafaxine HCl (Effexor Xr) 150 mg BID PO Last administered on 12/28/16 09:00 ; Admin Dose 150 MG; Start 12/26/16 at 09:00 Silver Sulfadiazine (Thermazene 1% 25 Gm) 1 applic BID TOP Last administered on 12/28/16 09:00; Admin Dose 1 APPLIC; Start 12/26/16 at 21:00 Rifampin (Rifampin) 600 mg DAILY PO Last administered on 12/28/16 08:59; Admin Dose 600 MG; Start 12/27/16 at 14:00 Metoprolol Succinate 12.5 mg 12.5 mg DAILY PO Last administered on 12/28/16 08 :58; Admin Dose 12.5 MG; Start 12/28/16 at 09:00 Vancomycin HCl/ Sodium Chloride (Vancocin/NS) 500 ml @ 125 mls/hr Q24H IVPB ; Start 12/29/16 at 04:00 Atorvastatin Calcium (Lipitor) 40 mg HS PO ; Start 12/28/16 at 21:00; Status GARYV MIHAI JOSEPH MD Dec 28, 2016 18:43
--- NOTE | 2016-12-28 19:12 | RADRPT ---
Echocardiogram Report Patient Name: SHANA HARVEY Gender: Male Date: 1940 Study Date: 28-Dec-2016 Graining Machine Operator: Aubrey Gaitan [facility] Location: 5538 Ref. Physician: JACLYN CHOUDHURY Quality: Technically Difficult Study Procedures: Transthoracic echocardiogram with complete 2D, M-Mode, and doppler examination. Indications: Congestive Heart Failure. 2D/M Mode Doppler Measurement Value Normal Ranges Measurement Value Normal Ranges LVIDd 2D 4.4 3.5 - 5.6 cm EMILEE Vmax 1.5 cm2 LVIDs 2D 3.6 2.1 - 4.1 cm EMILEE VTI 1.3 cm2 FS 2D 18.2 % AV Mean Farshad 1.7 m/sec LVPWd 2D 0.8 0.6 - 1.1 cm AV Mean PG 12.0 mmHg IVSd 2D 0.9 0.6 - 1.1 cm AV Peak Farshad 2.4 m/sec IVS/LVPW 2D 1.1 AV Peak PG 23.0 mmHg AoR Diam 2D 1.9 2.0 - 3.7 cm AV VTI 57.8 cm LA/Ao 2D 2 0 - 1 LVOT Mean Farshad 0.9 m/sec EDV 2D 88.1 cm3 LVOT Mean PG 4.0 mmHg ESV 2D 48.2 cm3 LVOT Peak Farshad 1.3 m/sec LA Dimen 2D 3.2 2.3 - 4.0 cm LVOT Peak PG 6.0 mmHg LVOT Diam 1.9 cm LVOT VTI 26.6 cm LVOT Area 2.8 cm2 MV E Peak Farshad 0.7 m/sec MV A Peak Farshad 0.8 m/sec MV E/A 0.9 MV Decel Time 204 msec MV E/A 0.9 Findings Left Ventricle: Normal left ventricular cavity size. Normal left ventricular wall thickness. Moderate left ventricular systolic dysfunction. Ejection fraction is visually estimated at 35 %. Tissue Doppler/Mitral Doppler indices are consistent with impaired relaxation (Stage I diastolic dysfunction). Right Ventricle: Normal right ventricular size. Normal right ventricular systolic function. Left Atrium: The left atrium is normal in size. Right Atrium: The right atrium is normal in size. Mitral Valve: Mitral valve leaflets appear mildly thickened. Mild mitral annular calcification. Trace mitral regurgitation. Aortic Valve: Aortic Valve Bio Prosthesis. Aortic valve Max velocity 2.42 m/sec. Max PG 23.00 mmHg. Mean PG 12.00 mmHg. No aortic regurgitation. Tricuspid Valve: Normal appearance of the tricuspid valve. Unable to obtain RVSP due to minimal presence of tricuspid regurgitation. Pulmonic Valve: Pulmonic valve not well visualized. Pericardium: Normal pericardium with no significant pericardial effusion. Aorta: Normal aortic root. IVC: Normal size and normal respiratory collapse consistent with normal right atrial pressure. Conclusions 1.Normal left ventricular cavity size. Normal left ventricular wall thickness. Moderate left ventricular systolic dysfunction. Ejection fraction is visually estimated at 35 %. Tissue Doppler/Mitral Doppler indices are consistent with impaired relaxation (Stage I diastolic dysfunction). 2.Mitral valve leaflets appear mildly thickened. Mild mitral annular calcification. Trace mitral regurgitation. 3.Aortic Valve Bio Prosthesis. Mean PG 12.00 mmHg. No aortic regurgitation. 4.Normal appearance of the tricuspid valve. TRace tricuspid valve regurgitation. Electronically Signed By: Jaclyn Choudhury 28-Dec-2016 19:11:15 -0700 Patient Name: SHANA HARVEY Study Date: 28-Dec-2016 [id number]
[2016-12-28] MEDS: ATORVASTATIN 40 MG TAB PO SCH (20:39)
[2016-12-28] MEDS: MIRTAZAPINE 15 MG TAB PO SCH (20:39)
--- NOTE | 2016-12-28 20:45 | RADRPT ---
PROCEDURE: Renal US. CLINICAL INDICATION: Renal dysfunction. TECHNIQUE: Multiple sonographic images of the kidneys and urinary bladder were obtained. The imag es were reviewed on a PACS workstation. COMPARISON: No prior studies are available for comparison. FINDINGS: The right kidney measures 8.6 x 3.7 x 4.1 cm. The left kidney measures 8.6 x 4.3 x 4.8 cm. There is no renal mass. There is no hydronephrosis. There is no renal calculus. Renal parenchymal thickness is normal bilaterally. Both kidneys are hyperechoic consistent with medical renal disease. The perirenal regions are normal with no fluid collection or mass. The urinary bladder is unremarkable. IMPRESSION: 1. Bilateral hyperechoic kidneys consistent with medical renal disease. 2. No hydronephrosis. 3. Otherwise unremarkable study. RPTAT: QQ .Kevin Martin MD, Date Time Electronically viewed and signed by .Kevin Martin MD, on 12/28/2016 20:44 .R/
[2016-12-28] MEDS ORDERED: MAGNESIUM SULFATE 1 GM/D5W 100 ML IVPB ONE (21:30)
[2016-12-28] MEDS: METOPROLOL (XL) 25 MG TAB PO SCH (21:44)
[2016-12-29] VITALS (11 sets, daily range): BP systolic 112–146; BP diastolic 56–63; PULSE 57–68; RESP 17–22
--- NOTE | 2016-12-29 00:06 | PN ---
DATE: 12/28/2016 SUBJECTIVE: No new complaints. The patient is a 76-year-old male who has been admitted with cellul itis and abscess on the right forehead area with culture that has grown MRSA. The patient on antibi otics. The patient has multiple medical problems. OBJECTIVE: GENERAL: Awake, alert. VITAL SIGNS: Temperature 98.6, heart rate 57 and regular, respirations 18, blood pressure 123/66, s aturation 95% room air. LABORATORY DATA: BUN 20, creatinine 1.68 today. Troponin 0.034. CBC was not done today. Dressing of the wound changed by me and the nurse. The wound looks better comparing to 2 days ago but still has some drainage of the yellowish pus. There is some necrotic tissue that I did some debridement at the bedside. Then, Silvadene cream was applied, covered by dressing. ASSESSMENT AND PLAN: A 76-year-old gentleman with multiple medical problems was admitted with foreh ead abscess and cellulitis with MRSA. The patient on appropriate antibiotics. May require debridem ent in the operating room, but at this time will continue local treatment with Silvadene application b.i.d. I have requested cardiology clearance. Dr. Choudhury, cardiology, has seen the patient, requ esting and performing . Also it should be mentioned that the patient is on Plavix. Will see i f it is appropriate to discontinue the Plavix for a few days before operation. Will continue curren t care at this time. Dictated By: ETHEL PHAN/ALBARO Conf#: [id number] DID#: [id number]
[2016-12-29] MEDS: ALBUTEROL/IPRATROPIUM (NEB) 3 ML AMP HHN SCH ×4 (01:52→20:27)
[2016-12-29] MEDS: ACCU-CHEK XX SCH (02:00)
[2016-12-29] MEDS: VANCOMYCIN 2 GM in SOD CHLORIDE 0.9% 500 ML IVPB SCH (03:38)
[2016-12-29] MEDS: LEVOFLOXACIN 500 MG TAB PO SCH (05:38)
[2016-12-29] MEDS: PANTOPRAZOLE (EC) 40 MG TAB PO SCH (05:38)
[2016-12-29] MEDS: LEVOTHYROXINE 150 MCG TAB PO SCH (06:00)
[2016-12-29] MEDS: INSULIN ASPART [NOVOLOG] 3 ML PEN SC SCH ×7 (07:32→20:16)
[2016-12-29] MEDS: VENLAFAXINE (XR) 75 MG CAP PO SCH ×2 (08:37→20:20)
[2016-12-29] MEDS: LISINOPRIL 5 MG TAB PO SCH (08:38)
[2016-12-29] MEDS: CLOPIDOGREL 75 MG TAB PO SCH (08:38)
[2016-12-29] MEDS: GLIMEPIRIDE 2 MG TAB PO SCH (08:38)
[2016-12-29] MEDS: RIFAMPIN 300 MG CAP PO SCH (08:38)
[2016-12-29] MEDS: DIGOXIN 0.125 MG TAB PO SCH (08:38)
[2016-12-29] MEDS: METOPROLOL (XL) 25 MG TAB PO SCH ×2 (08:39→20:13)
[2016-12-29] MEDS: SILVER SULFADIAZINE 1% 25 GM CR TOP SCH ×2 (09:00→20:20)
[2016-12-29 09:11] LABS: URIC ACID 6.1 mg/dl (3.1-7.9)
[2016-12-29 09:13] LABS: MAGNESIUM 2.4 mg/dl (1.7-2.5); POTASSIUM 4.8 mmol/L (3.5-5.1)
[2016-12-29 09:40] LABS: PROTEIN/CREAT RATIO 0.33 RATIO
--- NOTE | 2016-12-29 11:24 | PN ---
Date/Time of Note Date/Time of Note DATE: 12/29/16 TIME: 11:23 Assessment/Plan VTE Prophylaxis VTE Prophylaxis Intervention: SCD's Lines/Catheters IV Catheter Type (from Nrs): [place] [employer] line still needed: Yes Urinary Cath still in place: No Assessment/Plan Chief Complaint/Hosp Course Patient is currently undergoing Lexiscan for evaluation and cardiology clearance for surgery. No acute events reported prior to procedure. Assessment/Plan - Scalp cellulitis/abscess. Wound cx +MRSA. Continue Vanco. Dr. Oliva is following in infection disease consultation. Dr. Saldivar is following in general surgery. - Ischemic cardiomyopathy. Continue Coreg per cardiology recs. Dr. Choudhury is following in cardiology consultation. - Bradycardia. Continue telemetry monitoring. - Chronic kidney disease stage III. Monitor renal function and avoid nephrotoxic drugs. - Coronary artery disease with history of stent placement. Continue Plavix. - Chronic obstructive pulmonary disease. - Diabetes mellitus, hemoglobin A1c is 6.6, continue Amaryl and NovoLog per sliding scale. Further recommendations based on clinical course. Plan of care discussed with Dr. Giron Problems: Exam/Review of Systems Vital Signs Vitals Vital Signs Date Time Temp Pulse Resp B/P Pulse Ox O2 Delivery O2 Flow Rate FiO2 12/29/16 08:17 59 16 98 21 12/29/16 07:36 97.4 115/57 Intake and Output 12/28/16 12/28/16 12/29/16 15:00 23:00 07:00 Intake Total 750 ml 600 ml Output Total 850 ml 900 ml Balance -100 ml -300 ml Results Result Diagram: 12/27/16 0625 12/29/16 0713 Results 24 hrs Laboratory Tests Test 12/28/16 12:11 12/28/16 17:21 12/28/16 20:44 12/28/16 23:50 Bedside Glucose 78 76 85 Urine Eosinophils % 0.0 Urine Random Creatinine 48.44 Urine Random Sodium 87 Urine Protein/Creatinine Ratio 0.33 Urine Total Protein 16.0 H Test 12/29/16 07:13 12/29/16 08:37 Potassium Level 4.8 Uric Acid 6.1 Magnesium Level 2.4 Creatine Kinase 68 Bedside Glucose 95 Medications Medications Current Medications Morphine Sulfate (morphine) 4 mg Q4H PRN IV PAIN LEVEL 6-10; Start 12/23/16 at 05:00 Miscellaneous Information 1 ea NOTE XX ; Start 12/23/16 at 08:00 Glucose (Glutose) 15 gm Q15M PRN PO DECREASED GLUCOSE; Start 12/23/16 at 08:00 Glucose (Glutose) 22.5 gm Q15M PRN PO DECREASED GLUCOSE; Start 12/23/16 at 08: 00 Dextrose (D50w Syringe) 25 ml Q15M PRN IV DECREASED GLUCOSE; Start 12/23/16 at 08:00 Dextrose (D50w Syringe) 50 ml Q15M PRN IV DECREASED GLUCOSE; Start 12/23/16 at 08:00 Glucagon (Glucagen) 1 mg Q15M PRN IM DECREASED GLUCOSE; Start 12/23/16 at 08: 00 Glucose (Glutose) 15 gm Q15M PRN BUCCAL DECREASED GLUCOSE; Start 12/23/16 at 08:00 Acetaminophen (Tylenol Tab) 650 mg Q6H PRN PO PAIN AND OR ELEVATED TEMP Last administered on 12/24/16 17:40; Admin Dose 650 MG; Start 12/23/16 at 14:30 Acetaminophen/ Hydrocodone Bitart ([place] (5/325)) 1 tab Q6H PRN PO PAIN LEVEL 6 -10 Last administered on 12/27/16 15:15; Admin Dose 1 TAB; Start 12/24/16 at 23:00 Pantoprazole (Protonix Tab) 40 mg DAILY@06 PO Last administered on 12/29/16 05 :38; Admin Dose 40 MG; Start 12/26/16 at 06:00 Clopidogrel Bisulfate (plaVIX) 75 mg DAILY PO Last administered on 12/29/16 08 :38; Admin Dose 75 MG; Start 12/26/16 at 09:00 Levofloxacin (Levaquin) 500 mg DAILY@06 PO Last administered on 12/29/16 05:38 ; Admin Dose 500 MG; Start 12/26/16 at 06:00 Diagnostic Test (Pha) (Accu-Chek) 1 ea 02 XX ; Start 12/26/16 at 02:00 Digoxin (Digoxin) 0.125 mg DAILY PO Last administered on 12/29/16 08:38; Admin Dose 0.125 MG; Start 12/26/16 at 09:00 Lisinopril (Zestril) 5 mg DAILY PO Last administered on 12/29/16 08:38; Admin Dose 5 MG; Start 12/26/16 at 09:00 Mirtazapine (Remeron) 15 mg HS PO Last administered on 12/28/16 20:39; Admin Dose 15 MG; Start 12/26/16 at 21:00 Venlafaxine HCl (Effexor Xr) 150 mg BID PO Last administered on 12/29/16 08:37 ; Admin Dose 150 MG; Start 12/26/16 at 09:00 Silver Sulfadiazine (Thermazene 1% 25 Gm) 1 applic BID TOP Last administered on 12/28/16 20:43; Admin Dose 1 APPLIC; Start 12/26/16 at 21:00 Rifampin 600 mg 600 mg DAILY PO Last administered on 12/29/16 08:38; Admin Dose 600 MG; Start 12/27/16 at 14:00 Vancomycin HCl/ Sodium Chloride (Vancocin/NS) 500 ml @ 125 mls/hr Q24H IVPB Last administered on 12/29/16 03:38; Admin Dose 125 MLS/HR; Start 12/29/16 at 04:00 Atorvastatin Calcium (Lipitor) 40 mg HS PO Last administered on 12/28/16 20:39 ; Admin Dose 40 MG; Start 12/28/16 at 21:00 Metoprolol Succinate (Toprol Xl) 12.5 mg BID PO Last administered on 12/28/16 21:44; Admin Dose 12.5 MG; Start 12/28/16 at 21:30 SELMA ELMORE Dec 29, 2016 11:24
--- NOTE | 2016-12-29 11:41 | CONS ---
Date/Time of Note Date/Time of Note DATE: 12/29/16 TIME: 11:39 Assessment/Plan Assessment/Plan Chief Complaint/Hosp Course IMPRESSION: 1. Preoperative evaluation prior to surgical intervention for scalp abscess.- negative trop x 3. Was to ahe pre-op keiry this am but fell and thus lexiscan postponed until after head CT done 2. History of ischemic cardiomyopathy, last known ejection fraction approximately 40% by echo 2016. 3. Hypertension. 4. History of percutaneous transluminal coronary angioplasty and stent placement multiple times with most recent approximately 2 to 3 years prior per patient on Plavix. 5. History of transcatheter aortic valve replacement in 2016. 6. Scalp abscess. 7. Diabetes mellitus. 8. Chronic obstructive pulmonary disease. 9. Ongoing tobacco usage. 10. Anemia. 11. Renal failure. 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 Recc: -Tele -local wound care -Continue abx;'s -Continue BB/ACEI -Continue digoxiin -Continue plavix -Pnding eval s/p fall with lexiscan to be performed thereafter Problems: Consultation Date/Type/Reason Admit Date/Time Dec 23, 2016 at 02:25 Initial Consult Date 12/27/2016 Type of Consultation: cardiology Reason for Consultation pre-op Referring Provider: JOS FOSTER MD Exam/Review of Systems Vital Signs Vitals Vital Signs Date Time Temp Pulse Resp B/P Pulse Ox O2 Delivery O2 Flow Rate FiO2 12/29/16 08:17 59 16 98 21 12/29/16 07:36 97.4 115/57 Intake and Output 12/28/16 12/28/16 12/29/16 15:00 23:00 07:00 Intake Total 750 ml 600 ml Output Total 850 ml 900 ml Balance -100 ml -300 ml Exam Review of Systems: CONSTITUTIONAL: No fevers, chills. PULMONARY: No sob CARDIOVASCULAR: No chest pain/palpitations GASTROINTESTINAL: No nausea/vomiting. GENITOURINARY: No hematuria/dysuria. MUSCULOSKELETAL: No myagias/arthalgias. PSYCHIATRIC: The patient denies depression. NEUROLOGIC: No weakness Constitutional: alert Psych: no complaints Head: normocephalic ENMT: mucosa pink and moist Neck: jvd (8-9 cm water), supple Respiratory: clear to auscultation Cardiovascular: regular rate and rhythm Gastrointestinal: soft Musculoskeletal: muscle tone (normal) Extremities: edema (none) Neurological: other Results Result Diagram: 12/27/16 0625 12/29/16 0713 Results 24 hrs Laboratory Tests Test 12/28/16 12:11 12/28/16 17:21 12/28/16 20:44 12/28/16 23:50 Bedside Glucose 78 76 85 Urine Eosinophils % 0.0 Urine Random Creatinine 48.44 Urine Random Sodium 87 Urine Protein/Creatinine Ratio 0.33 Urine Total Protein 16.0 H Test 12/29/16 07:13 12/29/16 08:37 Potassium Level 4.8 Uric Acid 6.1 Magnesium Level 2.4 Creatine Kinase 68 Bedside Glucose 95 Medications Medications Current Medications Morphine Sulfate (morphine) 4 mg Q4H PRN IV PAIN LEVEL 6-10; Start 12/23/16 at 05:00 Miscellaneous Information 1 ea NOTE XX ; Start 12/23/16 at 08:00 Glucose (Glutose) 15 gm Q15M PRN PO DECREASED GLUCOSE; Start 12/23/16 at 08:00 Glucose (Glutose) 22.5 gm Q15M PRN PO DECREASED GLUCOSE; Start 12/23/16 at 08: 00 Dextrose (D50w Syringe) 25 ml Q15M PRN IV DECREASED GLUCOSE; Start 12/23/16 at 08:00 Dextrose (D50w Syringe) 50 ml Q15M PRN IV DECREASED GLUCOSE; Start 12/23/16 at 08:00 Glucagon (Glucagen) 1 mg Q15M PRN IM DECREASED GLUCOSE; Start 12/23/16 at 08: 00 Glucose (Glutose) 15 gm Q15M PRN BUCCAL DECREASED GLUCOSE; Start 12/23/16 at 08:00 Acetaminophen (Tylenol Tab) 650 mg Q6H PRN PO PAIN AND OR ELEVATED TEMP Last administered on 12/24/16 17:40; Admin Dose 650 MG; Start 12/23/16 at 14:30 Acetaminophen/ Hydrocodone Bitart ([place] (5/325)) 1 tab Q6H PRN PO PAIN LEVEL 6 -10 Last administered on 12/27/16 15:15; Admin Dose 1 TAB; Start 12/24/16 at 23:00 Pantoprazole (Protonix Tab) 40 mg DAILY@06 PO Last administered on 12/29/16 05 :38; Admin Dose 40 MG; Start 12/26/16 at 06:00 Clopidogrel Bisulfate (plaVIX) 75 mg DAILY PO Last administered on 12/29/16 08 :38; Admin Dose 75 MG; Start 12/26/16 at 09:00 Levofloxacin (Levaquin) 500 mg DAILY@06 PO Last administered on 12/29/16 05:38 ; Admin Dose 500 MG; Start 12/26/16 at 06:00 Diagnostic Test (Pha) (Accu-Chek) 1 ea 02 XX ; Start 12/26/16 at 02:00 Digoxin (Digoxin) 0.125 mg DAILY PO Last administered on 12/29/16 08:38; Admin Dose 0.125 MG; Start 12/26/16 at 09:00 Lisinopril (Zestril) 5 mg DAILY PO Last administered on 12/29/16 08:38; Admin Dose 5 MG; Start 12/26/16 at 09:00 Mirtazapine (Remeron) 15 mg HS PO Last administered on 12/28/16 20:39; Admin Dose 15 MG; Start 12/26/16 at 21:00 Venlafaxine HCl (Effexor Xr) 150 mg BID PO Last administered on 12/29/16 08:37 ; Admin Dose 150 MG; Start 12/26/16 at 09:00 Silver Sulfadiazine (Thermazene 1% 25 Gm) 1 applic BID TOP Last administered on 12/28/16 20:43; Admin Dose 1 APPLIC; Start 12/26/16 at 21:00 Rifampin 600 mg 600 mg DAILY PO Last administered on 12/29/16 08:38; Admin Dose 600 MG; Start 12/27/16 at 14:00 Vancomycin HCl/ Sodium Chloride (Vancocin/NS) 500 ml @ 125 mls/hr Q24H IVPB Last administered on 12/29/16 03:38; Admin Dose 125 MLS/HR; Start 12/29/16 at 04:00 Atorvastatin Calcium (Lipitor) 40 mg HS PO Last administered on 12/28/16 20:39 ; Admin Dose 40 MG; Start 12/28/16 at 21:00 Metoprolol Succinate (Toprol Xl) 12.5 mg BID PO Last administered on 12/28/16 21:44; Admin Dose 12.5 MG; Start 12/28/16 at 21:30 JACLYN RODRIGUEZ 3, 2017 11:41
--- NOTE | 2016-12-29 12:50 | CONS ---
Date/Time of Note Date/Time of Note DATE: 12/29/16 TIME: 12:46 Assessment/Plan Assessment/Plan Chief Complaint/Hosp Course pt admitted with forehead cellulitis with self draining abscess, seen by ID, started on IV abx, noted to have Rising Cr and renal has been consulted for MELINDA on CKD Problems: Additional Assessment/Plan 1. MELINDA on CKD Due to prerenal azotemia + ATN 2. MRSA forehead cellulitis with Abscess 3. H/o CKD III Due to HTN 4. HTN 5. Bipolar 6. DM II Plan : IV abx vancomycin , renally dose it , monitor it- no chemistry available today - AM labs ordered for tomorrow Renal US c/w medical renal disease, no hydronephrosis Urine studies unremarkable, ID following will follow up Consultation Date/Type/Reason Admit Date/Time Dec 23, 2016 at 02:25 Initial Consult Date 12/28/16 Type of Consultation: NEPHROLOGY Referring Provider: JOS FOSTER MD 24 HR Interval Summary Free Text/Dictation No chemistry available today AM, on IV abx, Renal US c/w medical renal disease Exam/Review of Systems Vital Signs Vitals Vital Signs Date Time Temp Pulse Resp B/P Pulse Ox O2 Delivery O2 Flow Rate FiO2 12/29/16 08:17 59 16 98 21 12/29/16 07:36 97.4 115/57 Intake and Output 12/28/16 12/28/16 12/29/16 15:00 23:00 07:00 Intake Total 750 ml 600 ml Output Total 850 ml 900 ml Balance -100 ml -300 ml Exam Constitutional: alert Respiratory: clear to auscultation, normal air movement Cardiovascular: nl pulses, regular rate and rhythm Gastrointestinal: non-tender, soft Musculoskeletal: nl extremities to inspection, nl gait and stance Extremities: normal pulses Neurological: ARMED GUARD II-XII intact, nl mental status, nl speech, nl strength Results Result Diagram: 12/27/16 0625 12/29/16 0713 Results 24 hrs Laboratory Tests Test 12/28/16 17:21 12/28/16 20:44 12/28/16 23:50 12/29/16 07:13 Bedside Glucose 76 85 Urine Eosinophils % 0.0 Urine Random Creatinine 48.44 Urine Random Sodium 87 Urine Protein/Creatinine Ratio 0.33 Urine Total Protein 16.0 H Potassium Level 4.8 Uric Acid 6.1 Magnesium Level 2.4 Creatine Kinase 68 Test 12/29/16 08:37 Bedside Glucose 95 Medications Medications Current Medications Morphine Sulfate (morphine) 4 mg Q4H PRN IV PAIN LEVEL 6-10; Start 12/23/16 at 05:00 Miscellaneous Information 1 ea NOTE XX ; Start 12/23/16 at 08:00 Glucose (Glutose) 15 gm Q15M PRN PO DECREASED GLUCOSE; Start 12/23/16 at 08:00 Glucose (Glutose) 22.5 gm Q15M PRN PO DECREASED GLUCOSE; Start 12/23/16 at 08: 00 Dextrose (D50w Syringe) 25 ml Q15M PRN IV DECREASED GLUCOSE; Start 12/23/16 at 08:00 Dextrose (D50w Syringe) 50 ml Q15M PRN IV DECREASED GLUCOSE; Start 12/23/16 at 08:00 Glucagon (Glucagen) 1 mg Q15M PRN IM DECREASED GLUCOSE; Start 12/23/16 at 08: 00 Glucose (Glutose) 15 gm Q15M PRN BUCCAL DECREASED GLUCOSE; Start 12/23/16 at 08:00 Acetaminophen (Tylenol Tab) 650 mg Q6H PRN PO PAIN AND OR ELEVATED TEMP Last administered on 12/24/16 17:40; Admin Dose 650 MG; Start 12/23/16 at 14:30 Acetaminophen/ Hydrocodone Bitart ([place] (5/325)) 1 tab Q6H PRN PO PAIN LEVEL 6 -10 Last administered on 12/27/16 15:15; Admin Dose 1 TAB; Start 12/24/16 at 23:00 Pantoprazole (Protonix Tab) 40 mg DAILY@06 PO Last administered on 12/29/16 05 :38; Admin Dose 40 MG; Start 12/26/16 at 06:00 Clopidogrel Bisulfate (plaVIX) 75 mg DAILY PO Last administered on 12/29/16 08 :38; Admin Dose 75 MG; Start 12/26/16 at 09:00 Levofloxacin (Levaquin) 500 mg DAILY@06 PO Last administered on 12/29/16 05:38 ; Admin Dose 500 MG; Start 12/26/16 at 06:00 Diagnostic Test (Pha) (Accu-Chek) 1 ea 02 XX ; Start 12/26/16 at 02:00 Digoxin (Digoxin) 0.125 mg DAILY PO Last administered on 12/29/16 08:38; Admin Dose 0.125 MG; Start 12/26/16 at 09:00 Lisinopril (Zestril) 5 mg DAILY PO Last administered on 12/29/16 08:38; Admin Dose 5 MG; Start 12/26/16 at 09:00 Mirtazapine (Remeron) 15 mg HS PO Last administered on 12/28/16 20:39; Admin Dose 15 MG; Start 12/26/16 at 21:00 Venlafaxine HCl (Effexor Xr) 150 mg BID PO Last administered on 12/29/16 08:37 ; Admin Dose 150 MG; Start 12/26/16 at 09:00 Silver Sulfadiazine (Thermazene 1% 25 Gm) 1 applic BID TOP Last administered on 12/28/16 20:43; Admin Dose 1 APPLIC; Start 12/26/16 at 21:00 Rifampin 600 mg 600 mg DAILY PO Last administered on 12/29/16 08:38; Admin Dose 600 MG; Start 12/27/16 at 14:00 Vancomycin HCl/ Sodium Chloride (Vancocin/NS) 500 ml @ 125 mls/hr Q24H IVPB Last administered on 12/29/16 03:38; Admin Dose 125 MLS/HR; Start 12/29/16 at 04:00 Atorvastatin Calcium (Lipitor) 40 mg HS PO Last administered on 12/28/16 20:39 ; Admin Dose 40 MG; Start 12/28/16 at 21:00 Metoprolol Succinate (Toprol Xl) 12.5 mg BID PO Last administered on 12/28/16 21:44; Admin Dose 12.5 MG; Start 12/28/16 at 21:30 MIHAI JOSEPH MD Dec 29, 2016 12:50
--- NOTE | 2016-12-29 13:44 | RADRPT ---
PROCEDURE: CT brain without contrast CLINICAL INDICATION: Fall, head injury, scalp abscess, cellulitis TECHNIQUE: CT of the brain without contrast performed on a multidetector CT scanner, with multiplan ar reformats. One or more of the following dose reduction techniques were used: Automated exposure control, adjustment in mA and / or kV according to patient size, use of iterative reconstructive bibi hnique. CTDIvol = 45 mGy; DLP = 720 mGy-cm. COMPARISON: CT brain 12/23/2016 FINDINGS: No acute intracranial hemorrhage is identified. No extra-axial fluid collection is seen. There is no mass effect. No midline shift is identified. The ventricles and sulci are mild - moderately enlarged compatible with volume loss. There is a chronic right HOMICIDE DETECTIVE territory infarct in the temporal - occipital lobes with ex vacuo dilat ion of the occipital horn - atrium of the right lateral ventricle and a tiny chronic infarct in the left cerebellar hemisphere. There are mild areas of hypodensity in the periventricular - deep white matter which are nonspecific but suggestive of chronic small vessel ischemic changes. Bonilla-white di fferentiation is otherwise preserved. Again noted is a very small lipoma at the anterior falx. Atherosclerotic calcifications of the intracranial internal carotid arteries are noted. Calvarium and skull base are intact. There is right frontal scalp swelling/fluid collection, decrea sed. Image mastoids - paranasal paranasal sinuses are grossly clear. IMPRESSION: 1. No evidence of acute intracranial pathology. 2. 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 3. Mild - moderate volume loss, with mild chronic small vessel ischemic changes. 4. Right frontal scalp swelling/fluid collection, decreased. RPTAT: VV .Al Skinner MD, Date Time Electronically viewed and signed by .Al Skinner MD, on 12/29/2016 13:43 .O/
--- NOTE | 2016-12-29 14:02 | RADRPT ---
Vent Rate: 69 bpm RR Interval: 0 msec MN Interval: 206 msec QRS Duration: 150 msec QT Interval: 466 msec QTC Interval: 499 msec P-R-T Jackson: 65 - -11 - -63 degrees Sinus rhythm with sinus arrhythmia with occasional premature ventricular complexes and fusion complexes Nonspecific intraventricular block Abnormal ECG Electronically Signed By: Jonh Greenberg [id number]
--- NOTE | 2016-12-29 14:09 | CONS ---
Date/Time of Note Date/Time of Note DATE: 12/29/16 TIME: 14:08 Consult Date/Type/Reason Admit Date/Time Dec 23, 2016 at 02:25 Type of Consultation: id Ordering Provider: JOS FOSTER MD Objective Vital Signs Date Time Temp Pulse Resp B/P Pulse Ox O2 Delivery O2 Flow Rate FiO2 12/29/16 12:50 97.8 72 19 146/63 97 12/29/16 08:17 21 Intake and Output 12/28/16 12/28/16 12/29/16 15:00 23:00 07:00 Intake Total 750 ml 600 ml Output Total 850 ml 900 ml Balance -100 ml -300 ml Results/Medications Result Diagram: 12/27/16 0625 12/29/16 0713 Results 24 hrs Laboratory Tests Test 12/28/16 17:21 12/28/16 20:44 12/28/16 23:50 12/29/16 07:13 Bedside Glucose 76 85 Urine Eosinophils % 0.0 Urine Random Creatinine 48.44 Urine Random Sodium 87 Urine Protein/Creatinine Ratio 0.33 Urine Total Protein 16.0 H Potassium Level 4.8 Uric Acid 6.1 Magnesium Level 2.4 Creatine Kinase 68 Test 12/29/16 08:37 12/29/16 12:46 Bedside Glucose 95 85 Medications Current Medications Morphine Sulfate (morphine) 4 mg Q4H PRN IV PAIN LEVEL 6-10; Start 12/23/16 at 05:00 Miscellaneous Information 1 ea NOTE XX ; Start 12/23/16 at 08:00 Glucose (Glutose) 15 gm Q15M PRN PO DECREASED GLUCOSE; Start 12/23/16 at 08:00 Glucose (Glutose) 22.5 gm Q15M PRN PO DECREASED GLUCOSE; Start 12/23/16 at 08: 00 Dextrose (D50w Syringe) 25 ml Q15M PRN IV DECREASED GLUCOSE; Start 12/23/16 at 08:00 Dextrose (D50w Syringe) 50 ml Q15M PRN IV DECREASED GLUCOSE; Start 12/23/16 at 08:00 Glucagon (Glucagen) 1 mg Q15M PRN IM DECREASED GLUCOSE; Start 12/23/16 at 08: 00 Glucose (Glutose) 15 gm Q15M PRN BUCCAL DECREASED GLUCOSE; Start 12/23/16 at 08:00 Acetaminophen (Tylenol Tab) 650 mg Q6H PRN PO PAIN AND OR ELEVATED TEMP Last administered on 12/24/16 17:40; Admin Dose 650 MG; Start 12/23/16 at 14:30 Acetaminophen/ Hydrocodone Bitart ([place] (5/325)) 1 tab Q6H PRN PO PAIN LEVEL 6 -10 Last administered on 12/27/16 15:15; Admin Dose 1 TAB; Start 12/24/16 at 23:00 Pantoprazole (Protonix Tab) 40 mg DAILY@06 PO Last administered on 12/29/16 05 :38; Admin Dose 40 MG; Start 12/26/16 at 06:00 Clopidogrel Bisulfate (plaVIX) 75 mg DAILY PO Last administered on 12/29/16 08 :38; Admin Dose 75 MG; Start 12/26/16 at 09:00 Diagnostic Test (Pha) (Accu-Chek) 1 ea 02 XX ; Start 12/26/16 at 02:00 Digoxin (Digoxin) 0.125 mg DAILY PO Last administered on 12/29/16 08:38; Admin Dose 0.125 MG; Start 12/26/16 at 09:00 Lisinopril (Zestril) 5 mg DAILY PO Last administered on 12/29/16 08:38; Admin Dose 5 MG; Start 12/26/16 at 09:00 Mirtazapine (Remeron) 15 mg HS PO Last administered on 12/28/16 20:39; Admin Dose 15 MG; Start 12/26/16 at 21:00 Venlafaxine HCl (Effexor Xr) 150 mg BID PO Last administered on 12/29/16 08:37 ; Admin Dose 150 MG; Start 12/26/16 at 09:00 Silver Sulfadiazine (Thermazene 1% 25 Gm) 1 applic BID TOP Last administered on 12/29/16 09:00; Admin Dose 1 APPLIC; Start 12/26/16 at 21:00 Rifampin 600 mg 600 mg DAILY PO Last administered on 12/29/16 08:38; Admin Dose 600 MG; Start 12/27/16 at 14:00 Vancomycin HCl/ Sodium Chloride (Vancocin/NS) 500 ml @ 125 mls/hr Q24H IVPB Last administered on 12/29/16 03:38; Admin Dose 125 MLS/HR; Start 12/29/16 at 04:00 Atorvastatin Calcium (Lipitor) 40 mg HS PO Last administered on 12/28/16 20:39 ; Admin Dose 40 MG; Start 12/28/16 at 21:00 Metoprolol Succinate (Toprol Xl) 12.5 mg BID PO Last administered on 12/28/16 21:44; Admin Dose 12.5 MG; Start 12/28/16 at 21:30 Assessment/Plan Chief Complaint/Hosp Course SUBJECTIVE: No events overnight, looks comfortable, no fevers. MICROBIOLOGY: Forehead wound grew MRSA. ANTIMICROBIALS: Rifampin, IV vancomycin. PHYSICAL EXAMINATION: GENERAL: Well-developed, elderly man in no distress. HEENT: Head atraumatic, normocephalic. Sclerae anicteric. Buccal mucosa dry. NECK: Supple. CHEST: Rise symmetrical. Breath sounds diminished to bases. HEART: S1, S2. ABDOMEN: Soft, bowel tones present. EXTREMITIES: Without cyanosis. SKIN: Dry, pale. There is erythema on the forehead. ASSESSMENT: 1. Methicillin-resistant Staphylococcus aureus cellulitis of the forehead with self- draining abscess. 2. Hypertension. 3. Chronic obstructive pulmonary disease. 4. Ischemic cardiomyopathy. 5. Chronic kidney disease stage III. PLAN: The patient remains stable. Continue abx, local wound care per surgical rec-s [facility] staff Problems: ILENE JUDGE NP Dec 29, 2016 14:09
--- NOTE | 2016-12-29 14:12 | RADRPT ---
Vent Rate: 55 bpm RR Interval: 0 msec RI Interval: 210 msec QRS Duration: 156 msec QT Interval: 516 msec QTC Interval: 493 msec P-R-T [place]: 50 - -28 - -80 degrees Sinus bradycardia with 1st degree AV block with frequent premature ventricular complexes Left bundle branch block Abnormal ECG Electronically Signed By: Jonh Greenberg [id number]
[2016-12-29] MEDS: HYDROCODONE/APAP (5/325) TAB PO PRN (16:52)
[2016-12-29] MEDS: MAGNESIUM HYDROXIDE 30ML CUP PO SCH (20:20)
[2016-12-29] MEDS: MIRTAZAPINE 15 MG TAB PO SCH (20:20)
[2016-12-29] MEDS: ATORVASTATIN 40 MG TAB PO SCH (20:22)
[2016-12-30] VITALS (12 sets, daily range): BP systolic 99–126; BP diastolic 56–86; PULSE 54–67; RESP 16–20
--- NOTE | 2016-12-30 01:50 | PN ---
DATE: 12/29/2016 SUBJECTIVE: The patient is a 76-year-old male who has been admitted because of the swelling and pain of the right forehead and there is drainage from the wound over there for the duration of one day. Per patient's family, was found to have cellulitis and abscess, and culture grew MRSA. The patient is on antibiotic appropriate for that one and daily dressing changes being done b.i.d. with application of Silvadene cream on that. NEW EVENTS: Apparently, the patient went downstairs today for a stress test and before doing that he tripped over per report the blanket and he fell, and therefore, they had to do a CT scan of the brain to make sure no pathology has occurred. OBJECTIVE GENERAL: Patient is alert, awake, oriented, as oriented as he was before. VITAL SIGNS: Temperature 98.4, heart rate 70, respirations 22, blood pressure 142/62, saturation 94% room air. Glucose is 95 and 185. HEAD AND NECK: Dressing intact. HEART: Regular. LUNGS: Clear. ABDOMEN: Soft. Repeat CT scan today after fall was read as follows: 1. No evidence of acute intracranial pathology. 2. 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 3. Mild to moderate volume loss with mild chronic small vessel ischemic changes. 4. Right frontal scalp swelling -- fluid collection, has decreased. ASSESSMENT: A 76-year-old male who was admitted because of the cellulitis and abscess of right forehead for probably 1 day duration. Wound culture grew MRSA. The patient is on appropriate antibiotics. The patient has multiple medical problems with coronary heart disease, hypertension and diabetes. PLAN: Continue local care of the wound with Silvadene cream b.i.d. while it has caused improvement of the wound to large extent. Still patient may need debridement surgically and in the operating room. I did a small debridement on the bedside yesterday. We are awaiting the cardiology clearance, and they are planning to repeat the Lexiscan probably tomorrow. Nephrology is on board for evaluation and treatment of the kidney problem. I will continue with closely following in regards to the wound. Dictated By: ETHEL PHAN/ALBARO Conf#: [id number] DID#: [id number] YANI
[2016-12-30] MEDS: ACCU-CHEK XX SCH (02:00)
[2016-12-30] MEDS: ALBUTEROL/IPRATROPIUM (NEB) 3 ML AMP HHN SCH ×4 (02:12→19:39)
[2016-12-30] MEDS: VANCOMYCIN 2 GM in SOD CHLORIDE 0.9% 500 ML IVPB SCH (03:59)
[2016-12-30] MEDS: PANTOPRAZOLE (EC) 40 MG TAB PO SCH (05:10)
[2016-12-30] MEDS: LEVOTHYROXINE 150 MCG TAB PO SCH (06:19)
[2016-12-30 07:30] LABS: ABNORMAL IP MESSAGE 1; BASOPHILS % 0.2 % (0.0-2.0); EOSINOPHILS # 0.2 10^3/ul (0.0-0.5); EOSINOPHILS % 2.9 % (0.0-7.0); HEMATOCRIT 32.7 % (42.0-52.0); HEMOGLOBIN 9.3 g/dl (14.0-18.0); LYMPHOCYTES # 1.2 10^3/ul (0.8-2.9); LYMPHOCYTES % 14.9 % (15.0-51.0); MEAN CORPUSCULAR HEMOGLOBIN 21.3 pg (29.0-33.0); MEAN CORPUSCULAR HGB CONC 28.4 g/dl (32.0-37.0); MEAN PLATELET VOLUME 11.1 fl (7.4-10.4); MONOCYTE # 0.7 10^3/ul (0.3-0.9); MONOCYTES % 8.2 % (0.0-11.0); NEUTROPHIL # 6.1 10^3/ul (1.6-7.5); NEUTROPHILS % 73.2 % (39.0-77.0); PLATELET COUNT 259 10^3/UL (140-415); POSITIVE DIFF @See below; RED BLOOD COUNT 4.36 10^6/ul (4.70-6.10); RED CELL DISTRIBUTION WIDTH 20.7 % (11.5-14.5); WHITE BLOOD COUNT 8.3 10^3/ul (4.8-10.8)
[2016-12-30 07:43] LABS: INR 1.13; PROTIME 14.5 Sec (12.2-14.2); PT RATIO 1.1
[2016-12-30 07:44] LABS: PARTIAL THROMBOPLASTIN TIME 37.5 Sec (25.0-35.0)
[2016-12-30 07:48] LABS: ALBUMIN 3.3 g/dl (3.3-4.9); ALBUMIN/GLOBULIN RATIO 0.91; BILIRUBIN,INDIRECT 0.4 mg/dl (0-1.1); BILIRUBIN,TOTAL 0.4 mg/dl (0.2-1.3); CALCIUM 9.2 mg/dl (8.4-10.2); CREATININE 1.69 mg/dl (0.61-1.24); POTASSIUM 4.6 mmol/L (3.5-5.1); TOTAL PROTEIN 6.9 g/dl (6.1-8.1)
[2016-12-30] MEDS: INSULIN ASPART [NOVOLOG] 3 ML PEN SC SCH ×8 (08:00→21:00)
[2016-12-30] MEDS: GLIMEPIRIDE 2 MG TAB PO SCH (08:00)
[2016-12-30] MEDS: DIGOXIN 0.125 MG TAB PO SCH (08:31)
[2016-12-30] MEDS: RIFAMPIN 300 MG CAP PO SCH (08:32)
[2016-12-30] MEDS: VENLAFAXINE (XR) 75 MG CAP PO SCH ×2 (08:32→21:15)
[2016-12-30] MEDS: CLOPIDOGREL 75 MG TAB PO SCH (08:32)
[2016-12-30] MEDS: LISINOPRIL 5 MG TAB PO SCH (08:34)
[2016-12-30] MEDS: METOPROLOL (XL) 25 MG TAB PO SCH ×2 (08:35→21:00)
[2016-12-30] MEDS: SILVER SULFADIAZINE 1% 25 GM CR TOP SCH ×2 (08:35→21:16)
--- NOTE | 2016-12-30 13:45 | CONS ---
Date/Time of Note Date/Time of Note DATE: 12/30/16 TIME: 13:44 Consult Date/Type/Reason Admit Date/Time Dec 23, 2016 at 02:25 Type of Consultation: id Ordering Provider: JOS FOSTER MD Objective Vital Signs Date Time Temp Pulse Resp B/P Pulse Ox O2 Delivery O2 Flow Rate FiO2 12/30/16 12:08 62 12/30/16 11:36 97.9 20 105/57 98 12/30/16 08:08 21 Intake and Output 12/29/16 12/29/16 12/30/16 15:00 23:00 07:00 Intake Total 900 ml Output Total 850 ml Balance 50 ml Results/Medications Result Diagram: 12/30/1605 12/30/16 0705 Results 24 hrs Laboratory Tests Test 12/29/16 16:42 12/29/16 20:16 12/30/16 07:05 12/30/16 08:28 Bedside Glucose 101 136 64 L White Blood Count 8.3 Red Blood Count 4.36 L Hemoglobin 9.3 L Hematocrit 32.7 L Mean Corpuscular Volume 75.0 L Mean Corpuscular Hemoglobin 21.3 L Mean Corpuscular Hemoglobin Concent 28.4 L Red Cell Distribution Width 20.7 H Platelet Count 259 # Mean Platelet Volume 11.1 H Neutrophils % 73.2 Lymphocytes % 14.9 L Monocytes % 8.2 Eosinophils % 2.9 Basophils % 0.2 Nucleated Red Blood Cells % 0.0 Neutrophils # 6.1 Lymphocytes # 1.2 Monocytes # 0.7 Eosinophils # 0.2 Basophils # 0.0 Nucleated Red Blood Cells # 0.0 Prothrombin Time 14.5 H Prothrombin Time Ratio 1.1 INR International Normalized Ratio 1.13 Activated Partial Thromboplast Time 37.5 H Sodium Level 139 Potassium Level 4.6 Chloride Level 106 Carbon Dioxide Level 26 Anion Gap 12 Blood Urea Nitrogen 20 Creatinine 1.69 H Glucose Level 49 *L Calcium Level 9.2 Total Bilirubin 0.4 Direct Bilirubin 0.00 Indirect Bilirubin 0.4 Aspartate Amino Transf (AST/SGOT) 19 Alanine Aminotransferase (ALT/SGPT) 31 Alkaline Phosphatase 89 Total Protein 6.9 Albumin 3.3 Globulin 3.60 H Albumin/Globulin Ratio 0.91 Test 12/30/16 08:44 12/30/16 08:59 12/30/16 12:20 Bedside Glucose 83 119 85 Medications Current Medications Morphine Sulfate (morphine) 4 mg Q4H PRN IV PAIN LEVEL 6-10; Start 12/23/16 at 05:00 Miscellaneous Information 1 ea NOTE XX ; Start 12/23/16 at 08:00 Glucose (Glutose) 15 gm Q15M PRN PO DECREASED GLUCOSE; Start 12/23/16 at 08:00 Glucose (Glutose) 22.5 gm Q15M PRN PO DECREASED GLUCOSE; Start 12/23/16 at 08: 00 Dextrose (D50w Syringe) 25 ml Q15M PRN IV DECREASED GLUCOSE; Start 12/23/16 at 08:00 Dextrose (D50w Syringe) 50 ml Q15M PRN IV DECREASED GLUCOSE; Start 12/23/16 at 08:00 Glucagon (Glucagen) 1 mg Q15M PRN IM DECREASED GLUCOSE; Start 12/23/16 at 08: 00 Glucose (Glutose) 15 gm Q15M PRN BUCCAL DECREASED GLUCOSE; Start 12/23/16 at 08:00 Acetaminophen (Tylenol Tab) 650 mg Q6H PRN PO PAIN AND OR ELEVATED TEMP Last administered on 12/24/16 17:40; Admin Dose 650 MG; Start 12/23/16 at 14:30 Acetaminophen/ Hydrocodone Bitart ([place] (5/325)) 1 tab Q6H PRN PO PAIN LEVEL 6 -10 Last administered on 12/29/16 16:52; Admin Dose 1 TAB; Start 12/24/16 at 23:00 Pantoprazole (Protonix Tab) 40 mg DAILY@06 PO Last administered on 12/30/16 05 :10; Admin Dose 40 MG; Start 12/26/16 at 06:00 Clopidogrel Bisulfate (plaVIX) 75 mg DAILY PO Last administered on 12/30/16 08 :32; Admin Dose 75 MG; Start 12/26/16 at 09:00 Diagnostic Test (Pha) (Accu-Chek) 1 ea 02 XX ; Start 12/26/16 at 02:00 Digoxin (Digoxin) 0.125 mg DAILY PO Last administered on 12/30/16 08:31; Admin Dose 0.125 MG; Start 12/26/16 at 09:00 Lisinopril (Zestril) 5 mg DAILY PO Last administered on 12/30/16 08:34; Admin Dose 5 MG; Start 12/26/16 at 09:00 Mirtazapine (Remeron) 15 mg HS PO Last administered on 12/29/16 20:20; Admin Dose 15 MG; Start 12/26/16 at 21:00 Venlafaxine HCl (Effexor Xr) 150 mg BID PO Last administered on 12/30/16 08:32 ; Admin Dose 150 MG; Start 12/26/16 at 09:00 Silver Sulfadiazine (Thermazene 1% 25 Gm) 1 applic BID TOP Last administered on 12/30/16 08:35; Admin Dose 1 APPLIC; Start 12/26/16 at 21:00 Rifampin 600 mg 600 mg DAILY PO Last administered on 12/30/16 08:32; Admin Dose 600 MG; Start 12/27/16 at 14:00 Vancomycin HCl/ Sodium Chloride (Vancocin/NS) 500 ml @ 125 mls/hr Q24H IVPB Last administered on 12/30/16 03:59; Admin Dose 125 MLS/HR; Start 12/29/16 at 04:00 Atorvastatin Calcium (Lipitor) 40 mg HS PO Last administered on 12/29/16 20:22 ; Admin Dose 40 MG; Start 12/28/16 at 21:00 Metoprolol Succinate (Toprol Xl) 12.5 mg BID PO Last administered on 12/30/16 08:35; Admin Dose 12.5 MG; Start 12/28/16 at 21:30 Magnesium Hydroxide (Milk Of Mag) 30 ml HS PO Last administered on 12/29/16 20 :20; Admin Dose 30 ML; Start 12/29/16 at 21:00 Assessment/Plan Chief Complaint/Hosp Course SUBJECTIVE: No events overnight, alert, eating lunch, looks comfortable, no fevers. MICROBIOLOGY: Forehead wound grew MRSA. ANTIMICROBIALS: Rifampin, IV vancomycin. PHYSICAL EXAMINATION: GENERAL: Well-developed, elderly man in no distress. HEENT: Head atraumatic, normocephalic. Sclerae anicteric. Buccal mucosa dry. NECK: Supple. CHEST: Rise symmetrical. Breath sounds diminished to bases. HEART: S1, S2. ABDOMEN: Soft, bowel tones present. EXTREMITIES: Without cyanosis. SKIN: Dry, pale. There is erythema on the forehead. ASSESSMENT: 1. Methicillin-resistant Staphylococcus aureus cellulitis of the forehead with self- draining abscess. 2. Hypertension. 3. Chronic obstructive pulmonary disease. 4. Ischemic cardiomyopathy. 5. Chronic kidney disease stage III. PLAN: The patient remains stable. Continue abx, local wound care per surgical rec-s, cardiac clearance for poss surgical debridement, pharmacy to adjust Vanco dose DW staff Problems: ILENE JUDGE NP Dec 30, 2016 13:45
--- NOTE | 2016-12-30 14:04 | CONS ---
Date/Time of Note Date/Time of Note DATE: 12/30/16 TIME: 13:59 Assessment/Plan Assessment/Plan Additional Assessment/Plan Scalp abscess/Cellulitis CAD s/p stenting Ischemic cardiomyopathy Hypertension. s/p TAVR Diabetes mellitus. Chronic obstructive pulmonary disease. Ongoing tobacco usage. Anemia. Renal failure. Dyslipidemia Hypothyroidism Hemodynamically stable Continue Metoprolol Continue Digoxin Continue Lisnopril Continue ASA and Plavix Continue Lipitor Continue Insulin Continue Antibiotics Continue GI and DVT Prophlaxis Consultation Date/Type/Reason Admit Date/Time Dec 23, 2016 at 02:25 Constitutional: no complaints Eyes: redness ENT: no complaints Respiratory: no complaints Cardiovascular: no complaints Gastrointestinal: no complaints Genitourinary: no complaints Musculoskeletal: no complaints Skin: no complaints Neurologic: no complaints Endocrine: no complaints Lymphatic: no complaints Psychological: no complaints Immunologic: no complaints Past Medical History Medical History: coronary artery disease, diabetes, hypertension, renal disease , other (BPH) Past Surgical History Past Surgical Hx: angioplasty, other (Bilateral knee, Cholecystectomy ) Social History Alcohol Use: none Smoking Status: Never smoker Drug Use: none Exam/Review of Systems Vital Signs Vitals Vital Signs Date Time Temp Pulse Resp B/P Pulse Ox O2 Delivery O2 Flow Rate FiO2 12/30/16 12:08 62 12/30/16 11:36 97.9 20 105/57 98 12/30/16 08:08 21 Intake and Output 12/29/16 12/29/16 12/30/16 15:00 23:00 07:00 Intake Total 900 ml Output Total 850 ml Balance 50 ml Exam Constitutional: alert, oriented Head: atraumatic, normocephalic Neck: non-tender, supple Respiratory: clear to auscultation Cardiovascular: regular rate and rhythm Gastrointestinal: nl liver, spleen, non-tender, soft Extremities: normal pulses Results Result Diagram: 12/30/16 0705 12/30/16 0705 Results 24 hrs Laboratory Tests Test 12/29/16 16:42 12/29/16 20:16 12/30/16 07:05 12/30/16 08:28 Bedside Glucose 101 136 64 L White Blood Count 8.3 Red Blood Count 4.36 L Hemoglobin 9.3 L Hematocrit 32.7 L Mean Corpuscular Volume 75.0 L Mean Corpuscular Hemoglobin 21.3 L Mean Corpuscular Hemoglobin Concent 28.4 L Red Cell Distribution Width 20.7 H Platelet Count 259 # Mean Platelet Volume 11.1 H Neutrophils % 73.2 Lymphocytes % 14.9 L Monocytes % 8.2 Eosinophils % 2.9 Basophils % 0.2 Nucleated Red Blood Cells % 0.0 Neutrophils # 6.1 Lymphocytes # 1.2 Monocytes # 0.7 Eosinophils # 0.2 Basophils # 0.0 Nucleated Red Blood Cells # 0.0 Prothrombin Time 14.5 H Prothrombin Time Ratio 1.1 INR International Normalized Ratio 1.13 Activated Partial Thromboplast Time 37.5 H Sodium Level 139 Potassium Level 4.6 Chloride Level 106 Carbon Dioxide Level 26 Anion Gap 12 Blood Urea Nitrogen 20 Creatinine 1.69 H Glucose Level 49 *L Calcium Level 9.2 Total Bilirubin 0.4 Direct Bilirubin 0.00 Indirect Bilirubin 0.4 Aspartate Amino Transf (AST/SGOT) 19 Alanine Aminotransferase (ALT/SGPT) 31 Alkaline Phosphatase 89 Total Protein 6.9 Albumin 3.3 Globulin 3.60 H Albumin/Globulin Ratio 0.91 Test 12/30/16 08:44 12/30/16 08:59 12/30/16 12:20 Bedside Glucose 83 119 85 Medications Medications Current Medications Morphine Sulfate (morphine) 4 mg Q4H PRN IV PAIN LEVEL 6-10; Start 12/23/16 at 05:00 Miscellaneous Information 1 ea NOTE XX ; Start 12/23/16 at 08:00 Glucose (Glutose) 15 gm Q15M PRN PO DECREASED GLUCOSE; Start 12/23/16 at 08:00 Glucose (Glutose) 22.5 gm Q15M PRN PO DECREASED GLUCOSE; Start 12/23/16 at 08: 00 Dextrose (D50w Syringe) 25 ml Q15M PRN IV DECREASED GLUCOSE; Start 12/23/16 at 08:00 Dextrose (D50w Syringe) 50 ml Q15M PRN IV DECREASED GLUCOSE; Start 12/23/16 at 08:00 Glucagon (Glucagen) 1 mg Q15M PRN IM DECREASED GLUCOSE; Start 12/23/16 at 08: 00 Glucose (Glutose) 15 gm Q15M PRN BUCCAL DECREASED GLUCOSE; Start 12/23/16 at 08:00 Acetaminophen (Tylenol Tab) 650 mg Q6H PRN PO PAIN AND OR ELEVATED TEMP Last administered on 12/24/16t 17:40; Admin Dose 650 MG; Start 12/23/16 at 14:30 Acetaminophen/ Hydrocodone Bitart ([place] (5/325)) 1 tab Q6H PRN PO PAIN LEVEL 6 -10 Last administered on 12/29/16 16:52; Admin Dose 1 TAB; Start 12/24/16 at 23:00 Pantoprazole (Protonix Tab) 40 mg DAILY@06 PO Last administered on 12/30/16 05 :10; Admin Dose 40 MG; Start 12/26/16 at 06:00 Clopidogrel Bisulfate (plaVIX) 75 mg DAILY PO Last administered on 12/30/16 08 :32; Admin Dose 75 MG; Start 12/26/16 at 09:00 Diagnostic Test (Pha) (Accu-Chek) 1 ea 02 XX ; Start 12/26/16 at 02:00 Digoxin (Digoxin) 0.125 mg DAILY PO Last administered on 12/30/16 08:31; Admin Dose 0.125 MG; Start 12/26/16 at 09:00 Lisinopril (Zestril) 5 mg DAILY PO Last administered on 12/30/16 08:34; Admin Dose 5 MG; Start 12/26/16 at 09:00 Mirtazapine (Remeron) 15 mg HS PO Last administered on 12/29/16 20:20; Admin Dose 15 MG; Start 12/26/16 at 21:00 Venlafaxine HCl (Effexor Xr) 150 mg BID PO Last administered on 12/30/16 08:32 ; Admin Dose 150 MG; Start 12/26/16 at 09:00 Silver Sulfadiazine (Thermazene 1% 25 Gm) 1 applic BID TOP Last administered on 12/30/16 08:35; Admin Dose 1 APPLIC; Start 12/26/16 at 21:00 Rifampin 600 mg 600 mg DAILY PO Last administered on 12/30/16 08:32; Admin Dose 600 MG; Start 12/27/16 at 14:00 Vancomycin HCl/ Sodium Chloride (Vancocin/NS) 500 ml @ 125 mls/hr Q24H IVPB Last administered on 12/30/16 03:59; Admin Dose 125 MLS/HR; Start 12/29/16 at 04:00 Atorvastatin Calcium (Lipitor) 40 mg HS PO Last administered on 12/29/16 20:22 ; Admin Dose 40 MG; Start 12/28/16 at 21:00 Metoprolol Succinate (Toprol Xl) 12.5 mg BID PO Last administered on 12/30/16 08:35; Admin Dose 12.5 MG; Start 12/28/16 at 21:30 Magnesium Hydroxide (Milk Of Mag) 30 ml HS PO Last administered on 12/29/16 20 :20; Admin Dose 30 ML; Start 12/29/16 at 21:00 GABBY VARGAS M.D. Dec 30, 2016 14:04
--- NOTE | 2016-12-30 15:32 | PN ---
Date/Time of Note Date/Time of Note DATE: 12/28/16 TIME: 12:20 Assessment/Plan VTE Prophylaxis VTE Prophylaxis Intervention: other Lines/Catheters IV [facility] Saline Lock Urinary Cath still in place: No Assessment/Plan Assessment/Plan - Scalp cellulitis/abscess. Wound cx +MRSA. Continue Vanco. Dr. Oliva is following in infection disease consultation. Dr. Saldivar is following in general surgery. - Ischemic cardiomyopathy. Continue Coreg per cardiology recs. Dr. Choudhury is asked to see patient in cardiology consultation. - Bradycardia. Continue telemetry monitoring. - Chronic kidney disease stage III. Monitor renal function and avoid nephrotoxic drugs. - Coronary artery disease with history of stent placement. Continue Plavix. - Chronic obstructive pulmonary disease. - Diabetes mellitus, hemoglobin A1c is 6.6, continue Amaryl and NovoLog per sliding scale. Further recommendations based on clinical course. Plan of care discussed with Dr. Giron Subjective 24 Hr Interval Summary Constitutional: improved Respiratory: no complaints Cardiovascular: no complaints Gastrointestinal: no complaints Musculoskeletal: no complaints Skin: other Exam/Review of Systems Vital Signs Vitals Vital Signs Date Time Temp Pulse Resp B/P Pulse Ox O2 Delivery O2 Flow Rate FiO2 12/28/16 11:50 98.6 60 22 122/56 91 12/28/16 01:05 21 Intake and Output 12/27/16 12/27/16 12/28/16 15:00 23:00 07:00 Intake Total 800 ml 933.33 ml Output Total 500 ml 975 ml Balance 300 ml -41.67 ml Exam Constitutional: alert, oriented, well developed Psych: nl mood/affect Head: other (scalp abcess- DDI) Cardiovascular: nl pulses, other (S1S2) Extremities: normal pulses Neurological: nl mental status, nl speech Results Result Diagram: 12/27/16 0625 12/28/16 0343 Results 24 hrs Laboratory Tests Test 12/27/16 17:10 12/27/16 19:24 12/27/16 21:12 12/28/16 00:48 Bedside Glucose 140 118 Thyroid Stimulating Hormone (TSH) 26.200 H Troponin I 0.043 Test 12/28/16 03:43 12/28/16 07:53 12/28/16 12:11 Blood Urea Nitrogen 20 Creatinine 1.68 H Troponin I 0.034 Triglycerides Level 111 Cholesterol Level 135 LDL Cholesterol, Calculated 93 HDL Cholesterol 20 L Cholesterol/HDL Ratio 6.7 Vancomycin Level Trough 8.8 L Bedside Glucose 92 78 Medications Medications Current Medications Morphine Sulfate (morphine) 4 mg Q4H PRN IV PAIN LEVEL 6-10; Start 12/23/16 at 05:00 Miscellaneous Information 1 ea NOTE XX ; Start 12/23/16 at 08:00 Glucose (Glutose) 15 gm Q15M PRN PO DECREASED GLUCOSE; Start 12/23/16 at 08:00 Glucose (Glutose) 22.5 gm Q15M PRN PO DECREASED GLUCOSE; Start 12/23/16 at 08: 00 Dextrose (D50w Syringe) 25 ml Q15M PRN IV DECREASED GLUCOSE; Start 12/23/16 at 08:00 Dextrose (D50w Syringe) 50 ml Q15M PRN IV DECREASED GLUCOSE; Start 12/23/16 at 08:00 Glucagon (Glucagen) 1 mg Q15M PRN IM DECREASED GLUCOSE; Start 12/23/16 at 08: 00 Glucose (Glutose) 15 gm Q15M PRN BUCCAL DECREASED GLUCOSE; Start 12/23/16 at 08:00 Acetaminophen (Tylenol Tab) 650 mg Q6H PRN PO PAIN AND OR ELEVATED TEMP Last administered on 12/24/16 17:40; Admin Dose 650 MG; Start 12/23/16 at 14:30 Acetaminophen/ Hydrocodone Bitart ([place] (5/325)) 1 tab Q6H PRN PO PAIN LEVEL 6 -10 Last administered on 12/27/16 15:15; Admin Dose 1 TAB; Start 12/24/16 at 23:00 Pantoprazole (Protonix Tab) 40 mg DAILY@06 PO Last administered on 12/28/16 05 :14; Admin Dose 40 MG; Start 12/26/16 at 06:00 Clopidogrel Bisulfate (plaVIX) 75 mg DAILY PO Last administered on 12/28/16 09 :00; Admin Dose 75 MG; Start 12/26/16 at 09:00 Levofloxacin (Levaquin) 500 mg DAILY@06 PO Last administered on 12/28/16 05:14 ; Admin Dose 500 MG; Start 12/26/16 at 06:00 Diagnostic Test (Pha) (Accu-Chek) 1 ea 02 XX ; Start 12/26/16 at 02:00 Atorvastatin Calcium (Lipitor) 80 mg HS PO Last administered on 12/27/16 21:14 ; Admin Dose 80 MG; Start 12/26/16 at 21:00 Digoxin (Digoxin) 0.125 mg DAILY PO Last administered on 12/28/16 08:59; Admin Dose 0.125 MG; Start 12/26/16 at 09:00 Lisinopril (Zestril) 5 mg DAILY PO Last administered on 12/28/16 08:58; Admin Dose 5 MG; Start 12/26/16 at 09:00 Mirtazapine (Remeron) 15 mg HS PO Last administered on 12/27/16 21:14; Admin Dose 15 MG; Start 12/26/16 at 21:00 Venlafaxine HCl (Effexor Xr) 150 mg BID PO Last administered on 12/28/16 09:00 ; Admin Dose 150 MG; Start 12/26/16 at 09:00 Silver Sulfadiazine (Thermazene 1% 25 Gm) 1 applic BID TOP Last administered on 12/28/16 09:00; Admin Dose 1 APPLIC; Start 12/26/16 at 21:00 Rifampin (Rifampin) 600 mg DAILY PO Last administered on 12/28/16 08:59; Admin Dose 600 MG; Start 12/27/16 at 14:00 Metoprolol Succinate 12.5 mg 12.5 mg DAILY PO Last administered on 12/28/16 08 :58; Admin Dose 12.5 MG; Start 12/28/16 at 09:00 Vancomycin HCl/ Sodium Chloride (Vancocin/NS) 500 ml @ 125 mls/hr Q24H IVPB ; Start 12/29/16 at 04:00 SOFÍA CHU Dec 28, 2016 12:30
--- NOTE | 2016-12-30 15:36 | PN ---
Date/Time of Note Date/Time of Note DATE: 12/30/16 TIME: 15:32 Assessment/Plan VTE Prophylaxis VTE Prophylaxis Intervention: other Lines/Catheters [facility] Sal[facility] Lock Urinary Cath still in place: No Assessment/Plan Assessment/Plan - Scalp cellulitis/abscess. Wound cx +MRSA. Continue Vanco. Dr. Oliva is following in infection disease consultation. Dr. Saldivar is following in general surgery. - Ischemic cardiomyopathy. Continue Coreg per cardiology recs. Dr. Choudhury is following in cardiology consultation. - Bradycardia. Continue telemetry monitoring. - Chronic kidney disease stage III. Monitor renal function and avoid nephrotoxic drugs. - Coronary artery disease with history of stent placement. Continue Plavix. - Chronic obstructive pulmonary disease. - Diabetes mellitus, hemoglobin A1c is 6.6, continue Amaryl and NovoLog per sliding scale. Further recommendations based on clinical course. Plan of care discussed with Dr. Giron Subjective 24 Hr Interval Summary Free Text/Dictation afebrile, was NPO last night- BS dropped, diet resumed, eats well, now BS -85, stress test -pending, staff. Respiratory: no complaints Cardiovascular: no complaints Gastrointestinal: no complaints Genitourinary: no complaints Musculoskeletal: no complaints Exam/Review of Systems Vital Signs Vitals Vital Signs Date Time Temp Pulse Resp B/P Pulse Ox O2 Delivery O2 Flow Rate FiO2 12/30/16 14:08 74 18 94 21 12/30/16 11:36 97.9 105/57 Intake and Output 12/29/16 12/29/16 12/30/16 15:00 23:00 07:00 Intake Total 900 ml Output Total 850 ml Balance 50 ml Exam Constitutional: alert, oriented, well developed Head: other (scalp abcess- DDI ) Respiratory: clear to auscultation, normal air movement Cardiovascular: other (S1S2) Gastrointestinal: non-tender, soft Musculoskeletal: nl extremities to inspection Extremities: normal pulses Neurological: nl mental status, nl speech Results Result Diagram: 12/30/1670412/30/16 0705 Results 24 hrs Laboratory Tests Test 12/29/16 16:42 12/29/16 20:16 12/30/16 07:05 12/30/16 08:28 Bedside Glucose 101 136 64 L White Blood Count 8.3 Red Blood Count 4.36 L Hemoglobin 9.3 L Hematocrit 32.7 L Mean Corpuscular Volume 75.0 L Mean Corpuscular Hemoglobin 21.3 L Mean Corpuscular Hemoglobin Concent 28.4 L Red Cell Distribution Width 20.7 H Platelet Count 259 # Mean Platelet Volume 11.1 H Neutrophils % 73.2 Lymphocytes % 14.9 L Monocytes % 8.2 Eosinophils % 2.9 Basophils % 0.2 Nucleated Red Blood Cells % 0.0 Neutrophils # 6.1 Lymphocytes # 1.2 Monocytes # 0.7 Eosinophils # 0.2 Basophils # 0.0 Nucleated Red Blood Cells # 0.0 Prothrombin Time 14.5 H Prothrombin Time Ratio 1.1 INR International Normalized Ratio 1.13 Activated Partial Thromboplast Time 37.5 H Sodium Level 139 Potassium Level 4.6 Chloride Level 106 Carbon Dioxide Level 26 Anion Gap 12 Blood Urea Nitrogen 20 Creatinine 1.69 H Glucose Level 49 *L Calcium Level 9.2 Total Bilirubin 0.4 Direct Bilirubin 0.00 Indirect Bilirubin 0.4 Aspartate Amino Transf (AST/SGOT) 19 Alanine Aminotransferase (ALT/SGPT) 31 Alkaline Phosphatase 89 Total Protein 6.9 Albumin 3.3 Globulin 3.60 H Albumin/Globulin Ratio 0.91 Test 12/30/16 08:44 12/30/16 08:59 12/30/16 12:20 Bedside Glucose 83 119 85 Medications Medications Current Medications Morphine Sulfate (morphine) 4 mg Q4H PRN IV PAIN LEVEL 6-10; Start 12/23/16 at 05:00 Miscellaneous Information 1 ea NOTE XX ; Start 12/23/16 at 08:00 Glucose (Glutose) 15 gm Q15M PRN PO DECREASED GLUCOSE; Start 12/23/16 at 08:00 Glucose (Glutose) 22.5 gm Q15M PRN PO DECREASED GLUCOSE; Start 12/23/16 at 08: 00 Dextrose (D50w Syringe) 25 ml Q15M PRN IV DECREASED GLUCOSE; Start 12/23/16 at 08:00 Dextrose (D50w Syringe) 50 ml Q15M PRN IV DECREASED GLUCOSE; Start 12/23/16 at 08:00 Glucagon (Glucagen) 1 mg Q15M PRN IM DECREASED GLUCOSE; Start 12/23/16 at 08: 00 Glucose (Glutose) 15 gm Q15M PRN BUCCAL DECREASED GLUCOSE; Start 12/23/16 at 08:00 Acetaminophen (Tylenol Tab) 650 mg Q6H PRN PO PAIN AND OR ELEVATED TEMP Last administered on 12/24/16 17:40; Admin Dose 650 MG; Start 12/23/16 at 14:30 Acetaminophen/ Hydrocodone Bitart ([place] (5/325)) 1 tab Q6H PRN PO PAIN LEVEL 6 -10 Last administered on 12/29/16 16:52; Admin Dose 1 TAB; Start 12/24/16 at 23:00 Pantoprazole (Protonix Tab) 40 mg DAILY@06 PO Last administered on 12/30/16 05 :10; Admin Dose 40 MG; Start 12/26/16 at 06:00 Clopidogrel Bisulfate (plaVIX) 75 mg DAILY PO Last administered on 12/30/16 08 :32; Admin Dose 75 MG; Start 12/26/16 at 09:00 Diagnostic Test (Pha) (Accu-Chek) 1 ea 02 XX ; Start 12/26/16 at 02:00 Digoxin (Digoxin) 0.125 mg DAILY PO Last administered on 12/30/16 08:31; Admin Dose 0.125 MG; Start 12/26/16 at 09:00 Lisinopril (Zestril) 5 mg DAILY PO Last administered on 12/30/16 08:34; Admin Dose 5 MG; Start 12/26/16 at 09:00 Mirtazapine (Remeron) 15 mg HS PO Last administered on 12/29/16 20:20; Admin Dose 15 MG; Start 12/26/16 at 21:00 Venlafaxine HCl (Effexor Xr) 150 mg BID PO Last administered on 12/30/16 08:32 ; Admin Dose 150 MG; Start 12/26/16 at 09:00 Silver Sulfadiazine (Thermazene 1% 25 Gm) 1 applic BID TOP Last administered on 12/30/16 08:35; Admin Dose 1 APPLIC; Start 12/26/16 at 21:00 Rifampin 600 mg 600 mg DAILY PO Last administered on 12/30/16 08:32; Admin Dose 600 MG; Start 12/27/16 at 14:00 Vancomycin HCl/ Sodium Chloride (Vancocin/NS) 500 ml @ 125 mls/hr Q24H IVPB Last administered on 12/30/16 03:59; Admin Dose 125 MLS/HR; Start 12/29/16 at 04:00 Atorvastatin Calcium (Lipitor) 40 mg HS PO Last administered on 12/29/16 20:22 ; Admin Dose 40 MG; Start 12/28/16 at 21:00 Metoprolol Succinate (Toprol Xl) 12.5 mg BID PO Last administered on 12/30/16 08:35; Admin Dose 12.5 MG; Start 12/28/16 at 21:30 Magnesium Hydroxide (Milk Of Mag) 30 ml HS PO Last administered on 12/29/16 20 :20; Admin Dose 30 ML; Start 12/29/16 at 21:00 SOFÍA CHU Dec 30, 2016 15:36
--- NOTE | 2016-12-30 16:59 | CONS ---
Date/Time of Note Date/Time of Note DATE: 12/30/16 TIME: 16:58 Assessment/Plan Assessment/Plan Chief Complaint/Hosp Course pt admitted with forehead cellulitis with self draining abscess, seen by ID, started on IV abx, noted to have Rising Cr and renal has been consulted for MELINDA on CKD Problems: Additional Assessment/Plan 1. MELINDA on CKD Due to prerenal azotemia + ATN 2. MRSA forehead cellulitis with Abscess 3. H/o CKD III Due to HTN 4. HTN 5. Bipolar 6. DM II Plan : IV abx vancomycin , renally dose it , Cr 1.68 stable Renal US c/w medical renal disease, no hydronephrosis Urine studies unremarkable, ID following will follow up Consultation Date/Type/Reason Admit Date/Time Dec 23, 2016 at 02:25 Initial Consult Date 12/28/16 Type of Consultation: NEPHROLOGY Referring Provider: JOS FOSTER MD 24 HR Interval Summary Free Text/Dictation BS dropped to 49,afebrile, Cr 1.68 Exam/Review of Systems Vital Signs Vitals Vital Signs Date Time Temp Pulse Resp B/P Pulse Ox O2 Delivery O2 Flow Rate FiO2 12/30/16 16:10 97.6 61 20 99/56 96 12/30/16 14:08 21 Intake and Output 12/29/16 12/29/16 12/30/16 15:00 23:00 07:00 Intake Total 900 ml Output Total 850 ml Balance 50 ml Exam Constitutional: alert Respiratory: clear to auscultation, normal air movement Cardiovascular: nl pulses, regular rate and rhythm Gastrointestinal: non-tender, soft Musculoskeletal: nl extremities to inspection, nl gait and stance Extremities: normal pulses Neurological: STUCCO PLASTERER II-XII intact, nl mental status, nl speech, nl strength Results Result Diagram: 12/30/1670412/30/16704 Results 24 hrs Laboratory Tests Test 12/29/16 20:16 12/30/16 07:05 12/30/16 08:28 12/30/16 08:44 Bedside Glucose 136 64 L 83 White Blood Count 8.3 Red Blood Count 4.36 L Hemoglobin 9.3 L Hematocrit 32.7 L Mean Corpuscular Volume 75.0 L Mean Corpuscular Hemoglobin 21.3 L Mean Corpuscular Hemoglobin Concent 28.4 L Red Cell Distribution Width 20.7 H Platelet Count 259 # Mean Platelet Volume 11.1 H Neutrophils % 73.2 Lymphocytes % 14.9 L Monocytes % 8.2 Eosinophils % 2.9 Basophils % 0.2 Nucleated Red Blood Cells % 0.0 Neutrophils # 6.1 Lymphocytes # 1.2 Monocytes # 0.7 Eosinophils # 0.2 Basophils # 0.0 Nucleated Red Blood Cells # 0.0 Prothrombin Time 14.5 H Prothrombin Time Ratio 1.1 INR International Normalized Ratio 1.13 Activated Partial Thromboplast Time 37.5 H Sodium Level 139 Potassium Level 4.6 Chloride Level 106 Carbon Dioxide Level 26 Anion Gap 12 Blood Urea Nitrogen 20 Creatinine 1.69 H Glucose Level 49 *L Calcium Level 9.2 Total Bilirubin 0.4 Direct Bilirubin 0.00 Indirect Bilirubin 0.4 Aspartate Amino Transf (AST/SGOT) 19 Alanine Aminotransferase (ALT/SGPT) 31 Alkaline Phosphatase 89 Total Protein 6.9 Albumin 3.3 Globulin 3.60 H Albumin/Globulin Ratio 0.91 Test 12/30/16 08:59 12/30/16 12:20 Bedside Glucose 119 85 Medications Medications Current Medications Morphine Sulfate (morphine) 4 mg Q4H PRN IV PAIN LEVEL 6-10; Start 12/23/16 at 05:00 Miscellaneous Information 1 ea NOTE XX ; Start 12/23/16 at 08:00 Glucose (Glutose) 15 gm Q15M PRN PO DECREASED GLUCOSE; Start 12/23/16 at 08:00 Glucose (Glutose) 22.5 gm Q15M PRN PO DECREASED GLUCOSE; Start 12/23/16 at 08: 00 Dextrose (D50w Syringe) 25 ml Q15M PRN IV DECREASED GLUCOSE; Start 12/23/16 at 08:00 Dextrose (D50w Syringe) 50 ml Q15M PRN IV DECREASED GLUCOSE; Start 12/23/16 at 08:00 Glucagon (Glucagen) 1 mg Q15M PRN IM DECREASED GLUCOSE; Start 12/23/16 at 08: 00 Glucose (Glutose) 15 gm Q15M PRN BUCCAL DECREASED GLUCOSE; Start 12/23/16 at 08:00 Acetaminophen (Tylenol Tab) 650 mg Q6H PRN PO PAIN AND OR ELEVATED TEMP Last administered on 12/24/16t 17:40; Admin Dose 650 MG; Start 12/23/16 at 14:30 Acetaminophen/ Hydrocodone Bitart ([place] (5/325)) 1 tab Q6H PRN PO PAIN LEVEL 6 -10 Last administered on 12/29/16 16:52; Admin Dose 1 TAB; Start 12/24/16 at 23:00 Pantoprazole (Protonix Tab) 40 mg DAILY@06 PO Last administered on 12/30/16 05 :10; Admin Dose 40 MG; Start 12/26/16 at 06:00 Clopidogrel Bisulfate (plaVIX) 75 mg DAILY PO Last administered on 12/30/16 08 :32; Admin Dose 75 MG; Start 12/26/16 at 09:00 Diagnostic Test (Pha) (Accu-Chek) 1 ea 02 XX ; Start 12/26/16 at 02:00 Digoxin (Digoxin) 0.125 mg DAILY PO Last administered on 12/30/16 08:31; Admin Dose 0.125 MG; Start 12/26/16 at 09:00 Lisinopril (Zestril) 5 mg DAILY PO Last administered on 12/30/16 08:34; Admin Dose 5 MG; Start 12/26/16 at 09:00 Mirtazapine (Remeron) 15 mg HS PO Last administered on 12/29/16 20:20; Admin Dose 15 MG; Start 12/26/16 at 21:00 Venlafaxine HCl (Effexor Xr) 150 mg BID PO Last administered on 12/30/16 08:32 ; Admin Dose 150 MG; Start 12/26/16 at 09:00 Silver Sulfadiazine (Thermazene 1% 25 Gm) 1 applic BID TOP Last administered on 12/30/16 08:35; Admin Dose 1 APPLIC; Start 12/26/16 at 21:00 Rifampin 600 mg 600 mg DAILY PO Last administered on 12/30/16 08:32; Admin Dose 600 MG; Start 12/27/16 at 14:00 Vancomycin HCl/ Sodium Chloride (Vancocin/NS) 500 ml @ 125 mls/hr Q24H IVPB Last administered on 12/30/16 03:59; Admin Dose 125 MLS/HR; Start 12/29/16 at 04:00 Atorvastatin Calcium (Lipitor) 40 mg HS PO Last administered on 12/29/16 20:22 ; Admin Dose 40 MG; Start 12/28/16 at 21:00 Metoprolol Succinate (Toprol Xl) 12.5 mg BID PO Last administered on 12/30/16 08:35; Admin Dose 12.5 MG; Start 12/28/16 at 21:30 Magnesium Hydroxide (Milk Of Mag) 30 ml HS PO Last administered on 12/29/16 20 :20; Admin Dose 30 ML; Start 12/29/16 at 21:00 MIHAI JOSEPH MD Dec 30, 2016 16:59
[2016-12-30] MEDS: MIRTAZAPINE 15 MG TAB PO SCH (21:15)
[2016-12-30] MEDS: ATORVASTATIN 40 MG TAB PO SCH (21:15)
[2016-12-30] MEDS: MAGNESIUM HYDROXIDE 30ML CUP PO SCH (21:15)
[2016-12-31] VITALS (12 sets, daily range): BP systolic 102–141; BP diastolic 57–66; PULSE 55–76; RESP 17–20
--- NOTE | 2016-12-31 00:26 | PN ---
DATE: 12/30/2016 SUBJECTIVE: Feels okay. No new complaints. OBJECTIVE: VITAL SIGNS: Stable. Temperature 97.9, heart rate 67 and regular, respirations 20, blood pressure 105/57, saturation 98% on room air. HEART: Regular. LUNGS: Clear. ABDOMEN: Soft. Dressing was changed. A lot of pus was drained. The swelling almost has collapsed. There were 2 or 3 holes around the wound. The skin cellulitis is getting better. LABORATORY DATA: WBC 8300 with 73% segmented, hemoglobin 9.3, hematocrit 32.7. Chemistry: Sodium, potassium normal. BUN 20, creatinine 1.69. ASSESSMENT: A 76-year-old gentleman who was admitted because of cellulitis and abscess of the right forehead. The culture grew methicillin-resistant Staphylococcus aureus. The patient has many medical problems including heart disease and several stent placements. The patient is on Plavix. Cardiology consult has been requested. They are proceeding with completion of the cardiology evaluation to clear the patient for anesthesia. Meanwhile, I am doing debridement locally at the bedside and the drainage of the abscess has improved a lot . debridement performed on the bedside. The patient is receiving appropriate antibiotic for methicillin-resistant Staphylococcus aureus. PLAN: Will continue current treatment. The patient is supposed to have a Lexiscan on Sunday. Dictated By: ETHEL PHAN/ALBARO Conf#: [id number] DID#: [id number] MTDD
[2016-12-31] MEDS: ALBUTEROL/IPRATROPIUM (NEB) 3 ML AMP HHN SCH ×4 (01:14→19:15)
[2016-12-31] MEDS: ACCU-CHEK XX SCH (01:40)
[2016-12-31] MEDS: VANCOMYCIN 2 GM in SOD CHLORIDE 0.9% 500 ML IVPB SCH (04:49)
[2016-12-31] MEDS: PANTOPRAZOLE (EC) 40 MG TAB PO SCH (05:00)
[2016-12-31] MEDS: LEVOTHYROXINE 150 MCG TAB PO SCH (06:02)
[2016-12-31] MEDS: INSULIN ASPART [NOVOLOG] 3 ML PEN SC SCH ×7 (08:00→21:00)
[2016-12-31] MEDS: GLIMEPIRIDE 2 MG TAB PO SCH (08:00)
[2016-12-31] MEDS: LISINOPRIL 5 MG TAB PO SCH (08:21)
[2016-12-31] MEDS: RIFAMPIN 300 MG CAP PO SCH (08:21)
[2016-12-31] MEDS: VENLAFAXINE (XR) 75 MG CAP PO SCH ×2 (08:21→21:16)
[2016-12-31] MEDS: CLOPIDOGREL 75 MG TAB PO SCH (08:21)
[2016-12-31] MEDS: DIGOXIN 0.125 MG TAB PO SCH (08:21)
[2016-12-31] MEDS: METOPROLOL (XL) 25 MG TAB PO SCH ×2 (08:22→21:00)
[2016-12-31] MEDS: SILVER SULFADIAZINE 1% 25 GM CR TOP SCH ×2 (08:22→21:17)
--- NOTE | 2016-12-31 11:36 | CONS ---
Date/Time of Note Date/Time of Note DATE: 12/31/16 TIME: 11:35 Assessment/Plan Assessment/Plan Additional Assessment/Plan Scalp abscess/Cellulitis CAD s/p stenting Ischemic cardiomyopathy Hypertension. s/p TAVR Diabetes mellitus. Chronic obstructive pulmonary disease. Ongoing tobacco usage. Anemia. Renal failure. Dyslipidemia Hypothyroidism Hemodynamically stable Awaiting stress test today Continue Metoprolol Continue Digoxin Continue Lisinopril Continue ASA and Plavix Continue Lipitor Continue Insulin Continue Antibiotics Continue GI and DVT Prophylaxis Consultation Date/Type/Reason Admit Date/Time Dec 23, 2016 at 02:25 Initial Consult Date 12/28/16 Type of Consultation: NEPHROLOGY Referring Provider: JOS FOSTER MD Exam/Review of Systems Vital Signs Vitals Vital Signs Date Time Temp Pulse Resp B/P Pulse Ox O2 Delivery O2 Flow Rate FiO2 12/31/16 08:05 73 12/31/16 08:03 18 95 21 12/31/16 07:55 98.4 102/57 Intake and Output 12/30/16 12/30/16 12/31/16 15:00 23:00 07:00 Intake Total 800 ml 900 ml Output Total 400 ml 1000 ml Balance 400 ml -100 ml Exam Constitutional: alert Head: atraumatic, normocephalic Respiratory: clear to auscultation Cardiovascular: regular rate and rhythm Gastrointestinal: nl liver, spleen, non-tender, soft Extremities: normal pulses Results Result Diagram: 12/30/16 0712/30/16 0705 Results 24 hrs Laboratory Tests Test 12/30/16 12:20 12/30/16 17:30 12/30/16 21:07 12/31/16 08:17 Bedside Glucose 85 142 176 147 Medications Medications Current Medications Morphine Sulfate (morphine) 4 mg Q4H PRN IV PAIN LEVEL 6-10; Start 12/23/16 at 05:00 Miscellaneous Information 1 ea NOTE XX ; Start 12/23/16 at 08:00 Glucose (Glutose) 15 gm Q15M PRN PO DECREASED GLUCOSE; Start 12/23/16 at 08:00 Glucose (Glutose) 22.5 gm Q15M PRN PO DECREASED GLUCOSE; Start 12/23/16 at 08: 00 Dextrose (D50w Syringe) 25 ml Q15M PRN IV DECREASED GLUCOSE; Start 12/23/16 at 08:00 Dextrose (D50w Syringe) 50 ml Q15M PRN IV DECREASED GLUCOSE; Start 12/23/16 at 08:00 Glucagon (Glucagen) 1 mg Q15M PRN IM DECREASED GLUCOSE; Start 12/23/16 at 08: 00 Glucose (Glutose) 15 gm Q15M PRN BUCCAL DECREASED GLUCOSE; Start 12/23/16 at 08:00 Acetaminophen (Tylenol Tab) 650 mg Q6H PRN PO PAIN AND OR ELEVATED TEMP Last administered on 12/24/16 17:40; Admin Dose 650 MG; Start 12/23/16 at 14:30 Acetaminophen/ Hydrocodone Bitart ([place] (5/325)) 1 tab Q6H PRN PO PAIN LEVEL 6 -10 Last administered on 12/29/16 16:52; Admin Dose 1 TAB; Start 12/24/16 at 23:00 Pantoprazole (Protonix Tab) 40 mg DAILY@06 PO Last administered on 12/31/16 05 :00; Admin Dose 40 MG; Start 12/26/16 at 06:00 Clopidogrel Bisulfate (plaVIX) 75 mg DAILY PO Last administered on 12/31/16 08 :21; Admin Dose 75 MG; Start 12/26/16 at 09:00 Diagnostic Test (Pha) (Accu-Chek) 1 ea 02 XX ; Start 12/26/16 at 02:00 Digoxin (Digoxin) 0.125 mg DAILY PO Last administered on 12/31/16 08:21; Admin Dose 0.125 MG; Start 12/26/16 at 09:00 Lisinopril (Zestril) 5 mg DAILY PO Last administered on 12/31/16 08:21; Admin Dose 5 MG; Start 12/26/16 at 09:00 Mirtazapine (Remeron) 15 mg HS PO Last administered on 12/30/16 21:15; Admin Dose 15 MG; Start 12/26/16 at 21:00 Venlafaxine HCl (Effexor Xr) 150 mg BID PO Last administered on 12/31/16 08:21 ; Admin Dose 150 MG; Start 12/26/16 at 09:00 Silver Sulfadiazine (Thermazene 1% 25 Gm) 1 applic BID TOP Last administered on 12/31/16 08:22; Admin Dose 1 APPLIC; Start 12/26/16 at 21:00 Rifampin 600 mg 600 mg DAILY PO Last administered on 12/31/16 08:21; Admin Dose 600 MG; Start 12/27/16 at 14:00 Vancomycin HCl/ Sodium Chloride (Vancocin/NS) 500 ml @ 125 mls/hr Q24H IVPB Last administered on 12/31/16 04:49; Admin Dose 125 MLS/HR; Start 12/29/16 at 04:00 Atorvastatin Calcium (Lipitor) 40 mg HS PO Last administered on 12/30/16 21:15 ; Admin Dose 40 MG; Start 12/28/16 at 21:00 Metoprolol Succinate (Toprol Xl) 12.5 mg BID PO Last administered on 12/31/16 08:22; Admin Dose 12.5 MG; Start 12/28/16 at 21:30 Magnesium Hydroxide (Milk Of Mag) 30 ml HS PO Last administered on 12/30/16 21 :15; Admin Dose 30 ML; Start 12/29/16 at 21:00 GABBY VARGAS M.D. Dec 31, 2016 11:36
--- NOTE | 2016-12-31 14:07 | CONS ---
Date/Time of Note Date/Time of Note DATE: 12/31/16 TIME: 14:03 Assessment/Plan Assessment/Plan Chief Complaint/Hosp Course ID PROGRESS NOTE CURRENT ABX=> Vanco IV + Rifampin 24H INTERVAL SUMMARY * Awake, alert, responsive, VSS, NAD, no c/o * CT BRAIN: IMPRESSION: 1. No evidence of acute intracranial pathology. 2. 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 3. Mild - moderate volume loss, with mild chronic small vessel ischemic changes. 4. Right frontal scalp swelling/fluid collection, decreased. PHYSICAL EXAMINATION: GENERAL: Awake, alert, VSS, NAD HEENT: Forehead DSG C/D/I, wound healing NECK: Trach midline CHEST: Rise symmetrical, without dyspnea on room air HEART: Pulse RRR ABDOMEN: Soft, benign EXTREMITIES: Warm, moves all extremities ID ASSESSMENT 76 yo M W/PMHX hronic right [employer] territory infarct and tiny chronic left cerebellar infarct admit with: 1. Methicillin-resistant Staphylococcus aureus cellulitis of the forehead with self- draining abscess. 2. Hypertension. 3. Chronic obstructive pulmonary disease. 4. Ischemic cardiomyopathy. 5. Chronic kidney disease stage III. INVASIVES: PIV ABX ALLERGY: IODINE CURRENT ABX: => => Vanco IV + Rifampin ID RECOMMENDATIONS 1. Continue current ABX & local wound care . . Problems: Consultation Date/Type/Reason Admit Date/Time Dec 23, 2016 at 02:25 Initial Consult Date 12/28/16 Type of Consultation: id Referring Provider: JOS FOSTER MD Exam/Review of Systems Vital Signs Vitals Vital Signs Date Time Temp Pulse Resp B/P Pulse Ox O2 Delivery O2 Flow Rate FiO2 12/31/16 12:21 98.3 76 17 119/62 94 12/31/16 08:03 21 Intake and Output 12/30/16 12/30/16 12/31/16 15:00 23:00 07:00 Intake Total 800 ml 900 ml Output Total 400 ml 1000 ml Balance 400 ml -100 ml Results Result Diagram: 12/30/16 0712/30/16 0705 Results 24 hrs Laboratory Tests Test 12/30/16 17:30 12/30/16 21:07 12/31/16 08:17 12/31/16 11:47 Bedside Glucose 142 176 147 130 Medications Medications Current Medications Morphine Sulfate (morphine) 4 mg Q4H PRN IV PAIN LEVEL 6-10; Start 12/23/16 at 05:00 Miscellaneous Information 1 ea NOTE XX ; Start 12/23/16 at 08:00 Glucose (Glutose) 15 gm Q15M PRN PO DECREASED GLUCOSE; Start 12/23/16 at 08:00 Glucose (Glutose) 22.5 gm Q15M PRN PO DECREASED GLUCOSE; Start 12/23/16 at 08: 00 Dextrose (D50w Syringe) 25 ml Q15M PRN IV DECREASED GLUCOSE; Start 12/23/16 at 08:00 Dextrose (D50w Syringe) 50 ml Q15M PRN IV DECREASED GLUCOSE; Start 12/23/16 at 08:00 Glucagon (Glucagen) 1 mg Q15M PRN IM DECREASED GLUCOSE; Start 12/23/16 at 08: 00 Glucose (Glutose) 15 gm Q15M PRN BUCCAL DECREASED GLUCOSE; Start 12/23/16 at 08:00 Acetaminophen (Tylenol Tab) 650 mg Q6H PRN PO PAIN AND OR ELEVATED TEMP Last administered on 12/24/16 17:40; Admin Dose 650 MG; Start 12/23/16 at 14:30 Acetaminophen/ Hydrocodone Bitart ([place] (5/325)) 1 tab Q6H PRN PO PAIN LEVEL 6 -10 Last administered on 12/29/16 16:52; Admin Dose 1 TAB; Start 12/24/16 at 23:00 Pantoprazole (Protonix Tab) 40 mg DAILY@06 PO Last administered on 12/31/16 05 :00; Admin Dose 40 MG; Start 12/26/16 at 06:00 Clopidogrel Bisulfate (plaVIX) 75 mg DAILY PO Last administered on 12/31/16 08 :21; Admin Dose 75 MG; Start 12/26/16 at 09:00 Diagnostic Test (Pha) (Accu-Chek) 1 ea 02 XX ; Start 12/26/16 at 02:00 Digoxin (Digoxin) 0.125 mg DAILY PO Last administered on 12/31/16 08:21; Admin Dose 0.125 MG; Start 12/26/16 at 09:00 Lisinopril (Zestril) 5 mg DAILY PO Last administered on 12/31/16 08:21; Admin Dose 5 MG; Start 12/26/16 at 09:00 Mirtazapine (Remeron) 15 mg HS PO Last administered on 12/30/16 21:15; Admin Dose 15 MG; Start 12/26/16 at 21:00 Venlafaxine HCl (Effexor Xr) 150 mg BID PO Last administered on 12/31/16 08:21 ; Admin Dose 150 MG; Start 12/26/16 at 09:00 Silver Sulfadiazine (Thermazene 1% 25 Gm) 1 applic BID TOP Last administered on 12/31/16 08:22; Admin Dose 1 APPLIC; Start 12/26/16 at 21:00 Rifampin 600 mg 600 mg DAILY PO Last administered on 12/31/16 08:21; Admin Dose 600 MG; Start 12/27/16 at 14:00 Vancomycin HCl/ Sodium Chloride (Vancocin/NS) 500 ml @ 125 mls/hr Q24H IVPB Last administered on 12/31/16 04:49; Admin Dose 125 MLS/HR; Start 12/29/16 at 04:00 Atorvastatin Calcium (Lipitor) 40 mg HS PO Last administered on 12/30/16 21:15 ; Admin Dose 40 MG; Start 12/28/16 at 21:00 Metoprolol Succinate (Toprol Xl) 12.5 mg BID PO Last administered on 12/31/16 08:22; Admin Dose 12.5 MG; Start 12/28/16 at 21:30 Magnesium Hydroxide (Milk Of Mag) 30 ml HS PO Last administered on 12/30/16 21 :15; Admin Dose 30 ML; Start 12/29/16 at 21:00 Miscellaneous Information (*Rx Drug Level Order Reminder*) VANCOMYCIN TROUGH AT 0300 ONCE ONCE XX ; Start 01/01/17 at 03:00; Stop 01/01/17 at 03:01 ISABELA SCOTT NP Dec 31, 2016 14:07
[2016-12-31] MEDS ORDERED: REGADENOSON 0.4 MG/5 ML SYG ONE (15:48)
--- NOTE | 2016-12-31 17:25 | RADRPT ---
PROCEDURE: Lexiscan myocardial perfusion study CLINICAL INDICATION: 76 -year-old patient with coronary artery disease, status post prior myocardi al infarction, complaining of chest pain. TECHNIQUE: Lexiscan 0.4 mg intravenously separate acquisition gated myocardial perfusion SPECT usi ng Tc 99m Myoview 26.0 mCi intravenously at stress and Tc-99m Myoview, 8.5 mCi intravenously at rest was performed using the rest/stress sequence. Poststress Myoview SPECT images were obtained in the supine position. COMPARISON: No prior studies. FINDINGS: Perfusion images reveal a moderate size severe in degree nonreversible perfusion defect in the infer oapical, inferior, inferolateral and basal inferoseptal lemon. There is no evidence of stress-induced ischemia. Lexiscan post stress gated SPECT images demonstrate moderate to severe hypokinesis of the left ventr icle. IMPRESSION: 1. The type and distribution of the scintigraphic abnormalities are most consistent with a moderate -sized nonreversible perfusion defect involving the inferoapical, inferior, inferolateral and basal inferoseptal lemon. 2. Moderate to severe hypokinesis of the left ventricle. 3. The left ventricle ejection fraction at stress is 18%, which may be underestimated. RPTAT: QQ .Zunilda Koehler MD, MD Date Time Electronically viewed and signed by .Zunilda Koehler MD, MD on 12/31/2016 17:24 .L/
--- NOTE | 2016-12-31 17:39 | PN ---
DATE: 12/31/2016 SUBJECTIVE: No new complaint today. No new event overnight, today is Sunday. The patient is supposed to go for a stress test in the afternoon. OBJECTIVE GENERAL: Awake, alert, oriented x3. VITAL SIGNS: Temperature 98.3, heart rate 76, respirations 17, blood pressure 109/62, saturation 94% on room air. HEART: Regular. LUNGS: Clear. ABDOMEN: Soft. The wound right frontal forehead cellulitis. The abscess keeps draining a decreasing amount. The dressing is being changed with Silvadene cream b.i.d. LABORATORIES: No hematology today. ASSESSMENT AND PLAN: A 76-year-old male who was admitted because of the cellulitis and abscess of the right forehead. Cause is unclear, supposedly for 24 hours per the patient's , but patient has had a history of fall long time ago. A culture has grown MRSA. The patient is receiving antibiotic appropriately. The patient has many, many heart problems, including coronary artery disease status post stenting, ischemic cardiomyopathy, hypertension, status post cutaneous aortic valve replacement, diabetes mellitus, obstructive pulmonary disease, tobacco use, anemia, renal failure, dyslipidemia, hypothyroidism. So the patient is being worked up by the esthetician spa to see if this patient clears for the operation in the operating room under general anesthesia. Meanwhile, we are taking care of the wound at the bedside. local bedside debridement is being done as needed and so far he has responded very well to local and also IV antibiotic. Dictated By: ETHEL PHAN/ALBARO Conf#: [id number] DID#: [id number] YANI
--- NOTE | 2016-12-31 18:06 | PN ---
Date/Time of Note Date/Time of Note DATE: 12/31/16 TIME: 18:03 Assessment/Plan VTE Prophylaxis VTE Prophylaxis Intervention: other Lines/Catheters IV Catheter Type (from Nrsg): Saline Lock Urinary Cath still in place: No Assessment/Plan Assessment/Plan - Ischemic cardiomyopathy. - SP stress test done today- LVEF- 18% - Continue Coreg per cardiology recs. Dr. Choudhury is following in cardiology consultation. - Scalp cellulitis/abscess. Wound cx +MRSA. Continue Vanco. Dr. Oliva is following in infection disease consultation. Dr. Saldivar is following in general surgery. - Bradycardia. Continue telemetry monitoring. - Chronic kidney disease stage III. Monitor renal function and avoid nephrotoxic drugs. - Coronary artery disease with history of stent placement. Continue Plavix. - Chronic obstructive pulmonary disease. - Diabetes mellitus, hemoglobin A1c is 6.6, continue Amaryl and NovoLog per sliding scale. Further recommendations based on clinical course. Plan of care discussed with Dr. Giron Subjective 24 Hr Interval Summary Free Text/Dictation afebrile, BS -115, stress test done today- LVEF- 18%- DW STAFF Respiratory: no complaints Cardiovascular: no complaints Gastrointestinal: no complaints Genitourinary: no complaints Musculoskeletal: no complaints Exam/Review of Systems Vital Signs Vitals Vital Signs Date Time Temp Pulse Resp B/P Pulse Ox O2 Delivery O2 Flow Rate FiO2 12/31/16 17:09 98.4 79 20 113/58 97 12/31/16 08:03 21 Intake and Output 12/30/16 12/30/16 12/31/16 15:00 23:00 07:00 Intake Total 800 ml 900 ml Output Total 400 ml 1000 ml Balance 400 ml -100 ml Exam Constitutional: alert, well developed Head: other (scalp abccess- DDI ) Respiratory: diminished breath sounds Cardiovascular: nl pulses, other (s1s2) Gastrointestinal: soft Musculoskeletal: nl extremities to inspection Neurological: nl speech Results Result Diagram: 12/30/1670412/30/1605 Results 24 hrs Laboratory Tests Test 12/30/16 21:07 12/31/16 08:17 12/31/16 11:47 12/31/16 17:28 Bedside Glucose 176 147 130 115 Medications Medications Current Medications Morphine Sulfate (morphine) 4 mg Q4H PRN IV PAIN LEVEL 6-10; Start 12/23/16 at 05:00 Miscellaneous Information 1 ea NOTE XX ; Start 12/23/16 at 08:00 Glucose (Glutose) 15 gm Q15M PRN PO DECREASED GLUCOSE; Start 12/23/16 at 08:00 Glucose (Glutose) 22.5 gm Q15M PRN PO DECREASED GLUCOSE; Start 12/23/16 at 08: 00 Dextrose (D50w Syringe) 25 ml Q15M PRN IV DECREASED GLUCOSE; Start 12/23/16 at 08:00 Dextrose (D50w Syringe) 50 ml Q15M PRN IV DECREASED GLUCOSE; Start 12/23/16 at 08:00 Glucagon (Glucagen) 1 mg Q15M PRN IM DECREASED GLUCOSE; Start 12/23/16 at 08: 00 Glucose (Glutose) 15 gm Q15M PRN BUCCAL DECREASED GLUCOSE; Start 12/23/16 at 08:00 Acetaminophen (Tylenol Tab) 650 mg Q6H PRN PO PAIN AND OR ELEVATED TEMP Last administered on 12/24/16 17:40; Admin Dose 650 MG; Start 12/23/16 at 14:30 Acetaminophen/ Hydrocodone Bitart ([place] (5/325)) 1 tab Q6H PRN PO PAIN LEVEL 6 -10 Last administered on 12/29/16 16:52; Admin Dose 1 TAB; Start 12/24/16 at 23:00 Pantoprazole (Protonix Tab) 40 mg DAILY@06 PO Last administered on 12/31/16 05 :00; Admin Dose 40 MG; Start 12/26/16 at 06:00 Clopidogrel Bisulfate (plaVIX) 75 mg DAILY PO Last administered on 12/31/16 08 :21; Admin Dose 75 MG; Start 12/26/16 at 09:00 Diagnostic Test (Pha) (Accu-Chek) 1 ea 02 XX ; Start 12/26/16 at 02:00 Digoxin (Digoxin) 0.125 mg DAILY PO Last administered on 12/31/16 08:21; Admin Dose 0.125 MG; Start 12/26/16 at 09:00 Lisinopril (Zestril) 5 mg DAILY PO Last administered on 12/31/16 08:21; Admin Dose 5 MG; Start 12/26/16 at 09:00 Mirtazapine (Remeron) 15 mg HS PO Last administered on 12/30/16 21:15; Admin Dose 15 MG; Start 12/26/16 at 21:00 Venlafaxine HCl (Effexor Xr) 150 mg BID PO Last administered on 12/31/16 08:21 ; Admin Dose 150 MG; Start 12/26/16 at 09:00 Silver Sulfadiazine (Thermazene 1% 25 Gm) 1 applic BID TOP Last administered on 12/31/16 08:22; Admin Dose 1 APPLIC; Start 12/26/16 at 21:00 Rifampin 600 mg 600 mg DAILY PO Last administered on 12/31/16 08:21; Admin Dose 600 MG; Start 12/27/16 at 14:00 Vancomycin HCl/ Sodium Chloride (Vancocin/NS) 500 ml @ 125 mls/hr Q24H IVPB Last administered on 12/31/16 04:49; Admin Dose 125 MLS/HR; Start 12/29/16 at 04:00 Atorvastatin Calcium (Lipitor) 40 mg HS PO Last administered on 12/30/16 21:15 ; Admin Dose 40 MG; Start 12/28/16 at 21:00 Metoprolol Succinate (Toprol Xl) 12.5 mg BID PO Last administered on 12/31/16 08:22; Admin Dose 12.5 MG; Start 12/28/16 at 21:30 Magnesium Hydroxide (Milk Of Mag) 30 ml HS PO Last administered on 12/30/16 21 :15; Admin Dose 30 ML; Start 12/29/16 at 21:00 Miscellaneous Information (*Rx Drug Level Order Reminder*) VANCOMYCIN TROUGH AT 0300 ONCE ONCE XX ; Start 01/01/17 at 03:00; Stop 01/01/17 at 03:01 SOFÍA CHU Dec 31, 2016 18:06
--- NOTE | 2016-12-31 18:30 | CARRPT ---
DATE OF PROCEDURE: 12/31/2016 PROCEDURE PERFORMED: Lexiscan. INDICATION: Preop procedure clearance. CLINICAL: The patient is a 76-year-old gentleman for procedural clearance with a baseline heart rat e of 59 beats per minute, baseline blood pressure 102/56 mmHg. Peak heart rate 78 beats per minute. Peak blood pressure 102/56 mmHg. DIAGNOSTIC ELECTROCARDIOGRAM: EKG at baseline shows sinus rhythm with a ventricular rate of 66 beat s per minute with prolonged CO interval, with prolonged QRS and normal QT intervals, with PVCs with no acute ST-T wave changes and a peak heart rate of 78 beats per minute. The patient was in sinus r hythm with persistence of PVCs with no acute ST-T wave changes from baseline. CONCLUSION: Clinically nonischemic EKG, nondiagnostic. Cardiolite stress images to follow this dic tation. Dictated By: GABBY VARGAS MD SR/NTS Conf#: [id number] DID#: [id number] CC: DAMIR LATIF MD;*EndCC*
[2016-12-31] MEDS: ATORVASTATIN 40 MG TAB PO SCH (21:16)
[2016-12-31] MEDS: MIRTAZAPINE 15 MG TAB PO SCH (21:16)
[2016-12-31] MEDS: MAGNESIUM HYDROXIDE 30ML CUP PO SCH (21:16)
--- NOTE | 2016-12-31 21:29 | CONS ---
Date/Time of Note Date/Time of Note DATE: 12/31/16 TIME: 21:28 Assessment/Plan Assessment/Plan Chief Complaint/Hosp Course pt admitted with forehead cellulitis with self draining abscess, seen by ID, started on IV abx, noted to have Rising Cr and renal has been consulted for MELINDA on CKD Problems: Additional Assessment/Plan 1. MELINDA on CKD Due to prerenal azotemia + ATN 2. MRSA forehead cellulitis with Abscess 3. H/o CKD III Due to HTN 4. HTN 5. Bipolar 6. DM II Plan : IV abx vancomycin , renally dose it , Cr 1.68 yesterday, no Cr available today for review Renal US c/w medical renal disease, no hydronephrosis Urine studies unremarkable, ID following will follow up Consultation Date/Type/Reason Admit Date/Time Dec 23, 2016 at 02:25 Initial Consult Date 12/28/16 Type of Consultation: NEPHROLOGY Referring Provider: JOS FOSTER MD 24 HR Interval Summary Free Text/Dictation No Cr availabel today for review, Bp stable,a febrile Exam/Review of Systems Vital Signs Vitals Vital Signs Date Time Temp Pulse Resp B/P Pulse Ox O2 Delivery O2 Flow Rate FiO2 12/31/16 20:21 98.1 59 20 119/58 97 12/31/16 19:15 21 Intake and Output 12/30/16 12/30/16 12/31/16 15:00 23:00 07:00 Intake Total 800 ml 900 ml Output Total 400 ml 1000 ml Balance 400 ml -100 ml Exam Constitutional: alert Respiratory: clear to auscultation, normal air movement Cardiovascular: nl pulses, regular rate and rhythm Gastrointestinal: non-tender, soft Musculoskeletal: nl extremities to inspection, nl gait and stance Extremities: normal pulses Neurological: CR[employer] PROFESSIONAL II-XII intact, nl mental status, nl speech, nl strength Results Result Diagram: 12/30/16 0705 12/30/16 0705 Results 24 hrs Laboratory Tests Test 12/31/16 08:17 12/31/16 11:47 12/31/16 17:28 Bedside Glucose 147 130 115 Medications Medications Current Medications Morphine Sulfate (morphine) 4 mg Q4H PRN IV PAIN LEVEL 6-10; Start 12/23/16 at 05:00 Miscellaneous Information 1 ea NOTE XX ; Start 12/23/16 at 08:00 Glucose (Glutose) 15 gm Q15M PRN PO DECREASED GLUCOSE; Start 12/23/16 at 08:00 Glucose (Glutose) 22.5 gm Q15M PRN PO DECREASED GLUCOSE; Start 12/23/16 at 08: 00 Dextrose (D50w Syringe) 25 ml Q15M PRN IV DECREASED GLUCOSE; Start 12/23/16 at 08:00 Dextrose (D50w Syringe) 50 ml Q15M PRN IV DECREASED GLUCOSE; Start 12/23/16 at 08:00 Glucagon (Glucagen) 1 mg Q15M PRN IM DECREASED GLUCOSE; Start 12/23/16 at 08: 00 Glucose (Glutose) 15 gm Q15M PRN BUCCAL DECREASED GLUCOSE; Start 12/23/16 at 08:00 Acetaminophen (Tylenol Tab) 650 mg Q6H PRN PO PAIN AND OR ELEVATED TEMP Last administered on 12/24/16 17:40; Admin Dose 650 MG; Start 12/23/16 at 14:30 Acetaminophen/ Hydrocodone Bitart ([place] (5/325)) 1 tab Q6H PRN PO PAIN LEVEL 6 -10 Last administered on 12/29/16 16:52; Admin Dose 1 TAB; Start 12/24/16 at 23:00 Pantoprazole (Protonix Tab) 40 mg DAILY@06 PO Last administered on 12/31/16 05 :00; Admin Dose 40 MG; Start 12/26/16 at 06:00 Clopidogrel Bisulfate (plaVIX) 75 mg DAILY PO Last administered on 12/31/16 08 :21; Admin Dose 75 MG; Start 12/26/16 at 09:00 Diagnostic Test (Pha) (Accu-Chek) 1 ea 02 XX ; Start 12/26/16 at 02:00 Digoxin (Digoxin) 0.125 mg DAILY PO Last administered on 12/31/16 08:21; Admin Dose 0.125 MG; Start 12/26/16 at 09:00 Lisinopril (Zestril) 5 mg DAILY PO Last administered on 12/31/16 08:21; Admin Dose 5 MG; Start 12/26/16 at 09:00 Mirtazapine (Remeron) 15 mg HS PO Last administered on 12/31/16 21:16; Admin Dose 15 MG; Start 12/26/16 at 21:00 Venlafaxine HCl (Effexor Xr) 150 mg BID PO Last administered on 12/31/16 21:16 ; Admin Dose 150 MG; Start 12/26/16 at 09:00 Silver Sulfadiazine (Thermazene 1% 25 Gm) 1 applic BID TOP Last administered on 12/31/16 21:17; Admin Dose 1 APPLIC; Start 12/26/16 at 21:00 Rifampin 600 mg 600 mg DAILY PO Last administered on 12/31/16 08:21; Admin Dose 600 MG; Start 12/27/16 at 14:00 Vancomycin HCl/ Sodium Chloride (Vancocin/NS) 500 ml @ 125 mls/hr Q24H IVPB Last administered on 12/31/16 04:49; Admin Dose 125 MLS/HR; Start 12/29/16 at 04:00 Atorvastatin Calcium (Lipitor) 40 mg HS PO Last administered on 12/31/16 21:16 ; Admin Dose 40 MG; Start 12/28/16 at 21:00 Metoprolol Succinate (Toprol Xl) 12.5 mg BID PO Last administered on 12/31/16 08:22; Admin Dose 12.5 MG; Start 12/28/16 at 21:30 Magnesium Hydroxide (Milk Of Mag) 30 ml HS PO Last administered on 12/31/16 21 :16; Admin Dose 30 ML; Start 12/29/16 at 21:00 Miscellaneous Information (*Rx Drug Level Order Reminder*) VANCOMYCIN TROUGH AT 0300 ONCE ONCE XX ; Start 01/01/17 at 03:00; Stop 01/01/17 at 03:01 MIHAI JOSEPH MD Dec 31, 2016 21:29
[2017-01-01] VITALS (11 sets, daily range): BP systolic 108–121; BP diastolic 54–68; PULSE 53–79; RESP 17–20
[2017-01-01] MEDS: ALBUTEROL/IPRATROPIUM (NEB) 3 ML AMP HHN SCH ×4 (01:36→19:35)
[2017-01-01] MEDS: ACCU-CHEK XX SCH (02:00)
[2017-01-01 03:18] LABS: BASOPHILS % 0.4 % (0.0-2.0); EOSINOPHILS # 0.1 10^3/ul (0.0-0.5); EOSINOPHILS % 1.2 % (0.0-7.0); HEMATOCRIT 33.3 % (42.0-52.0); HEMOGLOBIN 9.7 g/dl (14.0-18.0); LYMPHOCYTES # 1.2 10^3/ul (0.8-2.9); LYMPHOCYTES % 16.7 % (15.0-51.0); MEAN CORPUSCULAR HEMOGLOBIN 21.8 pg (29.0-33.0); MEAN CORPUSCULAR HGB CONC 29.1 g/dl (32.0-37.0); MEAN CORPUSCULAR VOLUME 74.8 fl (82.0-101.0); MEAN PLATELET VOLUME 10.7 fl (7.4-10.4); MONOCYTE # 0.5 10^3/ul (0.3-0.9); MONOCYTES % 6.9 % (0.0-11.0); NEUTROPHIL # 5.4 10^3/ul (1.6-7.5); NEUTROPHILS % 74.4 % (39.0-77.0); PLATELET COUNT 270 10^3/UL (140-415); RED BLOOD COUNT 4.45 10^6/ul (4.70-6.10); WHITE BLOOD COUNT 7.2 10^3/ul (4.8-10.8)
[2017-01-01 03:50] LABS: CREATININE 1.7 mg/dl (0.61-1.24)
[2017-01-01 03:51] LABS: CREATININE 1.81 mg/dl (0.61-1.24); POTASSIUM 4.6 mmol/L (3.5-5.1)
[2017-01-01] MEDS: VANCOMYCIN 2 GM in SOD CHLORIDE 0.9% 500 ML IVPB SCH (03:58)
[2017-01-01] MEDS: PANTOPRAZOLE (EC) 40 MG TAB PO SCH (05:24)
[2017-01-01] MEDS: LEVOTHYROXINE 150 MCG TAB PO SCH (08:06)
[2017-01-01] MEDS: LISINOPRIL 5 MG TAB PO SCH (08:06)
[2017-01-01] MEDS: RIFAMPIN 300 MG CAP PO SCH (08:06)
[2017-01-01] MEDS: DIGOXIN 0.125 MG TAB PO SCH (08:07)
[2017-01-01] MEDS: CLOPIDOGREL 75 MG TAB PO SCH (08:07)
[2017-01-01] MEDS: GLIMEPIRIDE 2 MG TAB PO SCH (08:07)
[2017-01-01] MEDS: VENLAFAXINE (XR) 75 MG CAP PO SCH ×2 (08:07→21:00)
[2017-01-01] MEDS: METOPROLOL (XL) 25 MG TAB PO SCH ×2 (08:07→21:00)
[2017-01-01] MEDS: SILVER SULFADIAZINE 1% 25 GM CR TOP SCH ×2 (08:08→21:00)
[2017-01-01] MEDS: INSULIN ASPART [NOVOLOG] 3 ML PEN SC SCH ×7 (08:09→21:00)
--- NOTE | 2017-01-01 12:54 | PN ---
Date/Time of Note Date/Time of Note DATE: 01/01/17 TIME: 12:50 Assessment/Plan VTE Prophylaxis VTE Prophylaxis Intervention: SCD's Lines/Catheters [facility] Saline Lock Urinary Cath still in place: No Assessment/Plan Chief Complaint/Hosp Course Patient is status post Lexiscan done yesterday, patient denies any chest pain, sinus rhythm on telemetry monitoring. Assessment/Plan - Scalp cellulitis/abscess. Wound cx +MRSA. Continue Vanco. Dr. Oliva is following in infection disease consultation. Dr. Saldivar is following in general surgery. - Ischemic cardiomyopathy. Continue Coreg per cardiology recs. Dr. Choudhury is following in cardiology consultation. - Bradycardia. Continue telemetry monitoring. - Chronic kidney disease stage III. Monitor renal function and avoid nephrotoxic drugs. - Coronary artery disease with history of stent placement. Continue Plavix. - Chronic obstructive pulmonary disease. - Diabetes mellitus, hemoglobin A1c is 6.6, continue Amaryl and NovoLog per sliding scale. 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 Further recommendations based on clinical course. Plan of care discussed with Dr. Giron Problems: Exam/Review of Systems Vital Signs Vitals Vital Signs Date Time Temp Pulse Resp B/P Pulse Ox O2 Delivery O2 Flow Rate FiO2 01/01/17 12:05 64 01/01/17 11:31 98.2 18 109/54 100 01/01/17 07:21 21 Intake and Output 12/31/16 12/31/16 01/01/17 15:00 23:00 07:00 Intake Total 200 ml 350 ml Output Total 850 ml 900 ml Balance -650 ml -550 ml Exam Constitutional: alert, oriented Respiratory: normal air movement Cardiovascular: nl pulses Gastrointestinal: non-tender, soft Extremities: normal pulses Neurological: nl mental status Skin: other (scalp wound) Results Result Diagram: 01/01/17 03101/01/17 0310 Results 24 hrs Laboratory Tests Test 12/31/16 17:28 12/31/16 21:14 01/01/17 03:10 01/01/17 07:53 Bedside Glucose 115 180 142 White Blood Count 7.2 Red Blood Count 4.45 L Hemoglobin 9.7 L Hematocrit 33.3 L Mean Corpuscular Volume 74.8 L Mean Corpuscular Hemoglobin 21.8 L Mean Corpuscular Hemoglobin Concent 29.1 L Red Cell Distribution Width 20.0 H Platelet Count 270 Mean Platelet Volume 10.7 H Neutrophils % 74.4 Lymphocytes % 16.7 Monocytes % 6.9 Eosinophils % 1.2 Basophils % 0.4 Nucleated Red Blood Cells % 0.0 Neutrophils # 5.4 Lymphocytes # 1.2 Monocytes # 0.5 Eosinophils # 0.1 Basophils # 0.0 Nucleated Red Blood Cells # 0.0 Sodium Level 140 Potassium Level 4.6 Chloride Level 105 Carbon Dioxide Level 27 Anion Gap 13 Blood Urea Nitrogen 29 H Creatinine 1.81 H Glucose Level 139 # Calcium Level 9.0 Vancomycin Level Trough 46.1 *H Test 01/01/17 11:49 Bedside Glucose 113 Medications Medications Current Medications Morphine Sulfate (morphine) 4 mg Q4H PRN IV PAIN LEVEL 6-10; Start 12/23/16 at 05:00 Miscellaneous Information 1 ea NOTE XX ; Start 12/23/16 at 08:00 Glucose (Glutose) 15 gm Q15M PRN PO DECREASED GLUCOSE; Start 12/23/16 at 08:00 Glucose (Glutose) 22.5 gm Q15M PRN PO DECREASED GLUCOSE; Start 12/23/16 at 08: 00 Dextrose (D50w Syringe) 25 ml Q15M PRN IV DECREASED GLUCOSE; Start 12/23/16 at 08:00 Dextrose (D50w Syringe) 50 ml Q15M PRN IV DECREASED GLUCOSE; Start 12/23/16 at 08:00 Glucagon (Glucagen) 1 mg Q15M PRN IM DECREASED GLUCOSE; Start 12/23/16 at 08: 00 Glucose (Glutose) 15 gm Q15M PRN BUCCAL DECREASED GLUCOSE; Start 12/23/16 at 08:00 Acetaminophen (Tylenol Tab) 650 mg Q6H PRN PO PAIN AND OR ELEVATED TEMP Last administered on 12/24/16 17:40; Admin Dose 650 MG; Start 12/23/16 at 14:30 Acetaminophen/ Hydrocodone Bitart ([place] (5/325)) 1 tab Q6H PRN PO PAIN LEVEL 6 -10 Last administered on 12/29/16 16:52; Admin Dose 1 TAB; Start 12/24/16 at 23:00 Pantoprazole (Protonix Tab) 40 mg DAILY@06 PO Last administered on 01/01/17 05 :24; Admin Dose 40 MG; Start 12/26/16 at 06:00 Clopidogrel Bisulfate (plaVIX) 75 mg DAILY PO Last administered on 01/01/17 08 :07; Admin Dose 75 MG; Start 12/26/16 at 09:00 Diagnostic Test (Pha) (Accu-Chek) 1 ea 02 XX ; Start 12/26/16 at 02:00 Digoxin (Digoxin) 0.125 mg DAILY PO Last administered on 01/01/17 08:07; Admin Dose 0.125 MG; Start 12/26/16 at 09:00 Lisinopril (Zestril) 5 mg DAILY PO Last administered on 01/01/17 08:06; Admin Dose 5 MG; Start 12/26/16 at 09:00 Mirtazapine (Remeron) 15 mg HS PO Last administered on 12/31/16 21:16; Admin Dose 15 MG; Start 12/26/16 at 21:00 Venlafaxine HCl (Effexor Xr) 150 mg BID PO Last administered on 01/01/17 08:07 ; Admin Dose 150 MG; Start 12/26/16 at 09:00 Silver Sulfadiazine (Thermazene 1% 25 Gm) 1 applic BID TOP Last administered on 01/01/17 08:08; Admin Dose 1 APPLIC; Start 12/26/16 at 21:00 Rifampin (Rifampin) 600 mg DAILY PO Last administered on 01/01/17 08:06; Admin Dose 600 MG; Start 12/27/16 at 14:00 Atorvastatin Calcium (Lipitor) 40 mg HS PO Last administered on 12/31/16 21:16 ; Admin Dose 40 MG; Start 12/28/16 at 21:00 Metoprolol Succinate (Toprol Xl) 12.5 mg BID PO Last administered on 01/01/17 08:07; Admin Dose 12.5 MG; Start 12/28/16 at 21:30 Magnesium Hydroxide (Milk Of Mag) 30 ml HS PO Last administered on 12/31/16 21 :16; Admin Dose 30 ML; Start 12/29/16 at 21:00 SELMA ELMORE Jan 01, 2017 12:54
[2017-01-01] MEDS: ATORVASTATIN 40 MG TAB PO SCH (21:00)
[2017-01-01] MEDS: MAGNESIUM HYDROXIDE 30ML CUP PO SCH (21:00)
[2017-01-01] MEDS: MIRTAZAPINE 15 MG TAB PO SCH (21:00)
--- NOTE | 2017-01-01 22:19 | CONS ---
Date/Time of Note Date/Time of Note DATE: 01/01/17 TIME: 22:17 Assessment/Plan Assessment/Plan Chief Complaint/Hosp Course pt admitted with forehead cellulitis with self draining abscess, seen by ID, started on IV abx, noted to have Rising Cr and renal has been consulted for MELINDA on CKD Problems: Additional Assessment/Plan 1. MELINDA on CKD Due to prerenal azotemia + ATN 2. MRSA forehead cellulitis with Abscess 3. H/o CKD III Due to HTN 4. HTN 5. Bipolar 6. DM II Plan : IV abx vancomycin , renally dose it , Cr 1.81 plan for debridement, pending cardiology clearance, if Cr continues to rise then we will give iVF hydration Renal US c/w medical renal disease, no hydronephrosis Urine studies unremarkable, ID following will follow up Consultation Date/Type/Reason Admit Date/Time Dec 23, 2016 at 02:25 Initial Consult Date 12/28/16 Type of Consultation: NEPHROLOGY Referring Provider: JOS FOSTER MD 24 HR Interval Summary Free Text/Dictation Plan for debridement, pending Cardiology clearance , BP stable, Cr 1.81 Exam/Review of Systems Vital Signs Vitals Vital Signs Date Time Temp Pulse Resp B/P Pulse Ox O2 Delivery O2 Flow Rate FiO2 01/01/17 20:00 67 01/01/17 19:35 18 97 21 01/01/17 15:28 98.3 114/68 Intake and Output 12/31/16 12/31/16 01/01/17 15:00 23:00 07:00 Intake Total 200 ml 350 ml Output Total 850 ml 900 ml Balance -650 ml -550 ml Results Result Diagram: 01/01/17 0310 01/01/17 0310 Results 24 hrs Laboratory Tests Test 01/01/17 03:10 01/01/17 07:53 01/01/17 11:49 01/01/17 17:09 White Blood Count 7.2 Red Blood Count 4.45 L Hemoglobin 9.7 L Hematocrit 33.3 L Mean Corpuscular Volume 74.8 L Mean Corpuscular Hemoglobin 21.8 L Mean Corpuscular Hemoglobin Concent 29.1 L Red Cell Distribution Width 20.0 H Platelet Count 270 Mean Platelet Volume 10.7 H Neutrophils % 74.4 Lymphocytes % 16.7 Monocytes % 6.9 Eosinophils % 1.2 Basophils % 0.4 Nucleated Red Blood Cells % 0.0 Neutrophils # 5.4 Lymphocytes # 1.2 Monocytes # 0.5 Eosinophils # 0.1 Basophils # 0.0 Nucleated Red Blood Cells # 0.0 Sodium Level 140 Potassium Level 4.6 Chloride Level 105 Carbon Dioxide Level 27 Anion Gap 13 Blood Urea Nitrogen 29 H Creatinine 1.81 H Glucose Level 139 # Calcium Level 9.0 Vancomycin Level Trough 46.1 *H Bedside Glucose 142 113 98 Medications Medications Current Medications Morphine Sulfate (morphine) 4 mg Q4H PRN IV PAIN LEVEL 6-10; Start 12/23/16 at 05:00 Miscellaneous Information 1 ea NOTE XX ; Start 12/23/16 at 08:00 Glucose (Glutose) 15 gm Q15M PRN PO DECREASED GLUCOSE; Start 12/23/16 at 08:00 Glucose (Glutose) 22.5 gm Q15M PRN PO DECREASED GLUCOSE; Start 12/23/16 at 08: 00 Dextrose (D50w Syringe) 25 ml Q15M PRN IV DECREASED GLUCOSE; Start 12/23/16 at 08:00 Dextrose (D50w Syringe) 50 ml Q15M PRN IV DECREASED GLUCOSE; Start 12/23/16 at 08:00 Glucagon (Glucagen) 1 mg Q15M PRN IM DECREASED GLUCOSE; Start 12/23/16 at 08: 00 Glucose (Glutose) 15 gm Q15M PRN BUCCAL DECREASED GLUCOSE; Start 12/23/16 at 08:00 Acetaminophen (Tylenol Tab) 650 mg Q6H PRN PO PAIN AND OR ELEVATED TEMP Last administered on 12/24/16 17:40; Admin Dose 650 MG; Start 12/23/16 at 14:30 Acetaminophen/ Hydrocodone Bitart ([place] (5/325)) 1 tab Q6H PRN PO PAIN LEVEL 6 -10 Last administered on 12/29/16 16:52; Admin Dose 1 TAB; Start 12/24/16 at 23:00 Pantoprazole (Protonix Tab) 40 mg DAILY@06 PO Last administered on 01/01/17 05 :24; Admin Dose 40 MG; Start 12/26/16 at 06:00 Clopidogrel Bisulfate (plaVIX) 75 mg DAILY PO Last administered on 01/01/17 08 :07; Admin Dose 75 MG; Start 12/26/16 at 09:00 Diagnostic Test (Pha) (Accu-Chek) 1 ea 02 XX ; Start 12/26/16 at 02:00 Digoxin (Digoxin) 0.125 mg DAILY PO Last administered on 01/01/17 08:07; Admin Dose 0.125 MG; Start 12/26/16 at 09:00 Lisinopril (Zestril) 5 mg DAILY PO Last administered on 01/01/17 08:06; Admin Dose 5 MG; Start 12/26/16 at 09:00 Mirtazapine (Remeron) 15 mg HS PO Last administered on 12/31/16 21:16; Admin Dose 15 MG; Start 12/26/16 at 21:00 Venlafaxine HCl (Effexor Xr) 150 mg BID PO Last administered on 01/01/17 08:07 ; Admin Dose 150 MG; Start 12/26/16 at 09:00 Silver Sulfadiazine (Thermazene 1% 25 Gm) 1 applic BID TOP Last administered on 01/01/17 08:08; Admin Dose 1 APPLIC; Start 12/26/16 at 21:00 Rifampin (Rifampin) 600 mg DAILY PO Last administered on 01/01/17 08:06; Admin Dose 600 MG; Start 12/27/16 at 14:00 Atorvastatin Calcium (Lipitor) 40 mg HS PO Last administered on 12/31/16 21:16 ; Admin Dose 40 MG; Start 12/28/16 at 21:00 Metoprolol Succinate (Toprol Xl) 12.5 mg BID PO Last administered on 01/01/17 08:07; Admin Dose 12.5 MG; Start 12/28/16 at 21:30 Magnesium Hydroxide (Milk Of Mag) 30 ml HS PO Last administered on 12/31/16 21 :16; Admin Dose 30 ML; Start 12/29/16 at 21:00 MIHAI JOSEPH MD Jan 01, 2017 22:19
--- NOTE | 2017-01-01 23:11 | CONS ---
Date/Time of Note Date/Time of Note DATE: 01/01/17 TIME: 23:06 Assessment/Plan Assessment/Plan Chief Complaint/Hosp Course IMPRESSION: 1. Preoperative evaluation prior to surgical intervention for scalp abscess.- negative trop x 3. No ischemia by keiry this admit. Thus moderate CV risk, ok to proceed with debridement of scalp abscess 2. History of ischemic cardiomyopathy, last known ejection fraction approximately 40% by echo 2016. 30-35% by echo this year. No ischemia by keiry with EF underestimated. 3. Hypertension. 4. History of percutaneous transluminal coronary angioplasty and stent placement multiple times with most recent approximately 2 to 3 years prior per patient on Plavix. 5. History of transcatheter aortic valve replacement in 2016. 6. Scalp abscess. 7. Diabetes mellitus. 8. Chronic obstructive pulmonary disease. 9. Ongoing tobacco usage. 10. Anemia. 11. Renal failure. 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 Recc: -Tele -local wound care -Continue abx;'s -Continue BB/ACEI -Continue digoxiin -Continue plavix Problems: Consultation Date/Type/Reason Admit Date/Time Dec 23, 2016 at 02:25 Initial Consult Date 12/27/2016 Type of Consultation: cardiology Reason for Consultation pre-op Referring Provider: JOS FOSTER MD Exam/Review of Systems Vital Signs Vitals Vital Signs Date Time Temp Pulse Resp B/P Pulse Ox O2 Delivery O2 Flow Rate FiO2 01/01/17 20:00 67 01/01/17 19:35 18 97 21 01/01/17 15:28 98.3 114/68 Intake and Output 12/31/16 12/31/16 01/01/17 15:00 23:00 07:00 Intake Total 200 ml 350 ml Output Total 850 ml 900 ml Balance -650 ml -550 ml Exam Review of Systems: CONSTITUTIONAL: No fevers, chills. PULMONARY: No sob CARDIOVASCULAR: No chest pain/palpitations GASTROINTESTINAL: No nausea/vomiting. GENITOURINARY: No hematuria/dysuria. MUSCULOSKELETAL: No myagias/arthalgias. PSYCHIATRIC: The patient denies depression. NEUROLOGIC: No weakness Constitutional: alert, oriented Psych: no complaints Head: normocephalic ENMT: mucosa pink and moist Neck: jvd (9 cm water), supple Respiratory: clear to auscultation Cardiovascular: regular rate and rhythm Gastrointestinal: non-tender, soft Musculoskeletal: muscle weakness (mild) Extremities: edema (trace) Neurological: other (No focal deficits) Results Result Diagram: 01/01/17 03101/01/17 0310 Results 24 hrs Laboratory Tests Test 01/01/17 03:10 01/01/17 07:53 01/01/17 11:49 01/01/17 17:09 White Blood Count 7.2 Red Blood Count 4.45 L Hemoglobin 9.7 L Hematocrit 33.3 L Mean Corpuscular Volume 74.8 L Mean Corpuscular Hemoglobin 21.8 L Mean Corpuscular Hemoglobin Concent 29.1 L Red Cell Distribution Width 20.0 H Platelet Count 270 Mean Platelet Volume 10.7 H Neutrophils % 74.4 Lymphocytes % 16.7 Monocytes % 6.9 Eosinophils % 1.2 Basophils % 0.4 Nucleated Red Blood Cells % 0.0 Neutrophils # 5.4 Lymphocytes # 1.2 Monocytes # 0.5 Eosinophils # 0.1 Basophils # 0.0 Nucleated Red Blood Cells # 0.0 Sodium Level 140 Potassium Level 4.6 Chloride Level 105 Carbon Dioxide Level 27 Anion Gap 13 Blood Urea Nitrogen 29 H Creatinine 1.81 H Glucose Level 139 # Calcium Level 9.0 Vancomycin Level Trough 46.1 *H Bedside Glucose 142 113 98 Medications Medications Current Medications Morphine Sulfate (morphine) 4 mg Q4H PRN IV PAIN LEVEL 6-10; Start 12/23/16 at 05:00 Miscellaneous Information 1 ea NOTE XX ; Start 12/23/16 at 08:00 Glucose (Glutose) 15 gm Q15M PRN PO DECREASED GLUCOSE; Start 12/23/16 at 08:00 Glucose (Glutose) 22.5 gm Q15M PRN PO DECREASED GLUCOSE; Start 12/23/16 at 08: 00 Dextrose (D50w Syringe) 25 ml Q15M PRN IV DECREASED GLUCOSE; Start 12/23/16 at 08:00 Dextrose (D50w Syringe) 50 ml Q15M PRN IV DECREASED GLUCOSE; Start 12/23/16 at 08:00 Glucagon (Glucagen) 1 mg Q15M PRN IM DECREASED GLUCOSE; Start 12/23/16 at 08: 00 Glucose (Glutose) 15 gm Q15M PRN BUCCAL DECREASED GLUCOSE; Start 12/23/16 at 08:00 Acetaminophen (Tylenol Tab) 650 mg Q6H PRN PO PAIN AND OR ELEVATED TEMP Last administered on 12/24/16 17:40; Admin Dose 650 MG; Start 12/23/16 at 14:30 Acetaminophen/ Hydrocodone Bitart ([place] (5/325)) 1 tab Q6H PRN PO PAIN LEVEL 6 -10 Last administered on 12/29/16 16:52; Admin Dose 1 TAB; Start 12/24/16 at 23:00 Pantoprazole (Protonix Tab) 40 mg DAILY@06 PO Last administered on 01/01/17 05 :24; Admin Dose 40 MG; Start 12/26/16 at 06:00 Clopidogrel Bisulfate (plaVIX) 75 mg DAILY PO Last administered on 01/01/17 08 :07; Admin Dose 75 MG; Start 12/26/16 at 09:00 Diagnostic Test (Pha) (Accu-Chek) 1 ea 02 XX ; Start 12/26/16 at 02:00 Digoxin (Digoxin) 0.125 mg DAILY PO Last administered on 01/01/17 08:07; Admin Dose 0.125 MG; Start 12/26/16 at 09:00 Lisinopril (Zestril) 5 mg DAILY PO Last administered on 01/01/17 08:06; Admin Dose 5 MG; Start 12/26/16 at 09:00 Mirtazapine (Remeron) 15 mg HS PO Last administered on 12/31/16 21:16; Admin Dose 15 MG; Start 12/26/16 at 21:00 Venlafaxine HCl (Effexor Xr) 150 mg BID PO Last administered on 01/01/17 08:07 ; Admin Dose 150 MG; Start 12/26/16 at 09:00 Silver Sulfadiazine (Thermazene 1% 25 Gm) 1 applic BID TOP Last administered on 01/01/17 08:08; Admin Dose 1 APPLIC; Start 12/26/16 at 21:00 Rifampin (Rifampin) 600 mg DAILY PO Last administered on 01/01/17 08:06; Admin Dose 600 MG; Start 12/27/16 at 14:00 Atorvastatin Calcium (Lipitor) 40 mg HS PO Last administered on 12/31/16 21:16 ; Admin Dose 40 MG; Start 12/28/16 at 21:00 Metoprolol Succinate (Toprol Xl) 12.5 mg BID PO Last administered on 01/01/17 08:07; Admin Dose 12.5 MG; Start 12/28/16 at 21:30 Magnesium Hydroxide (Milk Of Mag) 30 ml HS PO Last administered on 12/31/16 21 :16; Admin Dose 30 ML; Start 12/29/16 at 21:00 JACLYN RODRIGUEZ Jan 01, 2017 23:11
[2017-01-02] VITALS (12 sets, daily range): BP systolic 97–112; BP diastolic 54–69; PULSE 58–76; RESP 16–18
[2017-01-02] MEDS: ALBUTEROL/IPRATROPIUM (NEB) 3 ML AMP HHN SCH ×4 (01:41→19:23)
[2017-01-02] MEDS: ACCU-CHEK XX SCH (02:00)
--- NOTE | 2017-01-02 03:45 | PN ---
DATE: 01/01/2017 SUBJECTIVE: No new events. No complaints. The Cardiolite stress test has been done, report is not available yet. OBJECTIVE: GENERAL: Awake, alert. VITAL SIGNS: Temperature 98.3, heart rate 74, respirations 17, blood pressure 114/68, saturation 98% room air. LABORATORY DATA: Sodium and potassium normal, BUN 29, creatinine has increased to 1.81. Calcium is 9. Hematology: WBC 7200 with 74% segmented, hemoglobin 9.7, hematocrit 33.3. Actually, the Lexiscan myocardial perfusion study report is back now, impression: 1. of the scintigraphic abnormalities are most consistent with a moderate -sized nonreversible perfusion defect involving the inferoapical, inferior, inferolateral and basal interseptal lemon. 2. [id number] hypokinesis of the left ventricle. 3. Left ventricular ejection fraction at rest is 18%, which may be under estimated. This was read by Dr. Zunilda Koehler. ASSESSMENT AND PLAN: A 76-year-old gentleman was admitted with right forehead pain and swelling, and so diagnosis of cellulitis and abscess was made. Culture is growing MRSA. The patient was started on vancomycin. Swelling gradually has decreased. Eventually the wound, which had a few holes in it, has opened up more and a lot of pus has drained. At this time, debridement on the floor as well. Patient is on aspirin and Plavix, and I am waiting for the cardiology clearance to take the patient to the operating room because I believe he needs extensive moist collection, more extensive debridement in the operating room considering this report of negative scan. After talking to orthopedic dentist, to see if it is ok patient to be off the Plavix and aspirin for a few days, so meanwhile, we continue antibiotics and local dressing with Silvadene cream b.i.d. Dictated By: ETHEL WRIGHT MD PS/NTS Conf#: [id number] DID#: [id number] CC: DAMIR LATIF MD;*EndCC* MTDD
[2017-01-02] MEDS: PANTOPRAZOLE (EC) 40 MG TAB PO SCH (06:14)
[2017-01-02] MEDS: LEVOTHYROXINE 150 MCG TAB PO SCH (06:14)
[2017-01-02 07:28] LABS: ABNORMAL IP MESSAGE 1; BASOPHIL # 0.1 10^3/ul (0.0-0.1); BASOPHILS % 0.6 % (0.0-2.0); EOSINOPHILS # 0.2 10^3/ul (0.0-0.5); EOSINOPHILS % 2.6 % (0.0-7.0); HEMATOCRIT 34.4 % (42.0-52.0); HEMOGLOBIN 9.9 g/dl (14.0-18.0); LYMPHOCYTES # 1.4 10^3/ul (0.8-2.9); LYMPHOCYTES % 17.7 % (15.0-51.0); MEAN CORPUSCULAR HEMOGLOBIN 21.9 pg (29.0-33.0); MEAN CORPUSCULAR HGB CONC 28.8 g/dl (32.0-37.0); MEAN CORPUSCULAR VOLUME 75.9 fl (82.0-101.0); MEAN PLATELET VOLUME 10.5 fl (7.4-10.4); MONOCYTE # 0.6 10^3/ul (0.3-0.9); MONOCYTES % 7.8 % (0.0-11.0); NEUTROPHIL # 5.6 10^3/ul (1.6-7.5); NEUTROPHILS % 70.8 % (39.0-77.0); PLATELET COUNT 288 10^3/UL (140-415); POSITIVE DIFF @See below; RED BLOOD COUNT 4.53 10^6/ul (4.70-6.10)
[2017-01-02 07:56] LABS: CALCIUM 9.4 mg/dl (8.4-10.2); CREATININE 2.01 mg/dl (0.61-1.24); POTASSIUM 4.9 mmol/L (3.5-5.1)
[2017-01-02] MEDS: INSULIN ASPART [NOVOLOG] 3 ML PEN SC SCH ×7 (08:00→21:00)
[2017-01-02] MEDS: RIFAMPIN 300 MG CAP PO SCH (08:10)
[2017-01-02] MEDS: GLIMEPIRIDE 2 MG TAB PO SCH (08:11)
[2017-01-02] MEDS: VENLAFAXINE (XR) 75 MG CAP PO SCH ×2 (08:11→22:39)
[2017-01-02] MEDS: METOPROLOL (XL) 25 MG TAB PO SCH ×2 (08:11→21:00)
[2017-01-02] MEDS: CLOPIDOGREL 75 MG TAB PO SCH (08:11)
[2017-01-02] MEDS: LISINOPRIL 5 MG TAB PO SCH (08:11)
[2017-01-02] MEDS: DIGOXIN 0.125 MG TAB PO SCH (08:12)
[2017-01-02] MEDS: SILVER SULFADIAZINE 1% 25 GM CR TOP SCH ×2 (08:12→22:43)
--- NOTE | 2017-01-02 11:00 | CONS ---
Date/Time of Note Date/Time of Note DATE: 01/02/17 TIME: 10:58 Assessment/Plan Assessment/Plan Additional Assessment/Plan 1. Preoperative evaluation prior to surgical intervention for scalp abscess.- negative trop x 3. No ischemia by keiry this admit. Thus moderate CV risk, ok to proceed with debridement of scalp abscess - CLEARED FOR PROCEDURE as noted. 2. History of ischemic cardiomyopathy, last known ejection fraction approximately 40% by echo 2016. 30-35% by echo this year. No ischemia by keiry with EF underestimated. Not in CHF by exam now. 3. Hypertension- well Rx now. 4. History of percutaneous transluminal coronary angioplasty and stent placement multiple times with most recent approximately 2 to 3 years prior per patient on Plavix. 5. History of transcatheter aortic valve replacement in 2016- stable by exam. 6. Scalp abscess. 7. Diabetes mellitus. 8. Chronic obstructive pulmonary disease. 9. Ongoing tobacco usage. 10. Anemia. 11. Renal failure. 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 ROS: No fever, no chills, no nausea, no vomiting, no diarrhea/constipation No recent weight changes No chest pain, no PND, no orthopnea No dizziness, blurred vision No thirst, no heat or cold intolerance Exam/Review of Systems Vital Signs Vitals Vital Signs Date Time Temp Pulse Resp B/P Pulse Ox O2 Delivery O2 Flow Rate FiO2 01/02/17 08:11 76 01/02/17 07:50 20 99 21 01/02/17 07:26 97.7 104/69 01/01/17 20:00 Room Air Intake and Output 01/01/17 01/01/17 01/02/17 15:00 23:00 07:00 Intake Total 180 ml Balance 180 ml Exam General: WN/WD/NAD, AOx 1-2 HEENT: Unicetric/bandage on forehead/EOMI (follow commands) NECK: JVD elevated, no thyromegaly Lymph: no lymphadenopathy HEART: regular with no S3, II/ systolic murmur at apex, PMI L LUNGS: Coarse sounds ABD: soft, NT, ND, +BS : Intact Neuro: non focal SKIN: chronic changes EXT: trace edema Results Result Diagram: 01/02/17 0634 01/02/17 0634 Results 24 hrs Laboratory Tests Test 01/01/17 11:49 01/01/17 17:09 01/01/17 21:02 01/02/17 06:34 Bedside Glucose 113 98 86 White Blood Count 8.0 Red Blood Count 4.53 L Hemoglobin 9.9 L Hematocrit 34.4 L Mean Corpuscular Volume 75.9 L Mean Corpuscular Hemoglobin 21.9 L Mean Corpuscular Hemoglobin Concent 28.8 L Red Cell Distribution Width 20.0 H Platelet Count 288 Mean Platelet Volume 10.5 H Neutrophils % 70.8 Lymphocytes % 17.7 Monocytes % 7.8 Eosinophils % 2.6 Basophils % 0.6 Nucleated Red Blood Cells % 0.0 Neutrophils # 5.6 Lymphocytes # 1.4 Monocytes # 0.6 Eosinophils # 0.2 Basophils # 0.1 Nucleated Red Blood Cells # 0.0 Sodium Level 139 Potassium Level 4.9 Chloride Level 104 Carbon Dioxide Level 28 Anion Gap 12 Blood Urea Nitrogen 33 H Creatinine 2.01 H Glucose Level 99 # Calcium Level 9.4 Test 01/02/17 07:48 Bedside Glucose 107 Medications Medications Current Medications Morphine Sulfate (morphine) 4 mg Q4H PRN IV PAIN LEVEL 6-10; Start 12/23/16 at 05:00 Miscellaneous Information 1 ea NOTE XX ; Start 12/23/16 at 08:00 Glucose (Glutose) 15 gm Q15M PRN PO DECREASED GLUCOSE; Start 12/23/16 at 08:00 Glucose (Glutose) 22.5 gm Q15M PRN PO DECREASED GLUCOSE; Start 12/23/16 at 08: 00 Dextrose (D50w Syringe) 25 ml Q15M PRN IV DECREASED GLUCOSE; Start 12/23/16 at 08:00 Dextrose (D50w Syringe) 50 ml Q15M PRN IV DECREASED GLUCOSE; Start 12/23/16 at 08:00 Glucagon (Glucagen) 1 mg Q15M PRN IM DECREASED GLUCOSE; Start 12/23/16 at 08: 00 Glucose (Glutose) 15 gm Q15M PRN BUCCAL DECREASED GLUCOSE; Start 12/23/16 at 08:00 Acetaminophen (Tylenol Tab) 650 mg Q6H PRN PO PAIN AND OR ELEVATED TEMP Last administered on 12/24/16 17:40; Admin Dose 650 MG; Start 12/23/16 at 14:30 Acetaminophen/ Hydrocodone Bitart ([place] (5/325)) 1 tab Q6H PRN PO PAIN LEVEL 6 -10 Last administered on 12/29/16 16:52; Admin Dose 1 TAB; Start 12/24/16 at 23:00 Pantoprazole (Protonix Tab) 40 mg DAILY@06 PO Last administered on 01/02/17 06 :14; Admin Dose 40 MG; Start 12/26/16 at 06:00 Clopidogrel Bisulfate (plaVIX) 75 mg DAILY PO Last administered on 01/02/17 08 :11; Admin Dose 75 MG; Start 12/26/16 at 09:00 Diagnostic Test (Pha) (Accu-Chek) 1 ea 02 XX ; Start 12/26/16 at 02:00 Digoxin (Digoxin) 0.125 mg DAILY PO Last administered on 01/02/17 08:12; Admin Dose 0.125 MG; Start 12/26/16 at 09:00 Lisinopril (Zestril) 5 mg DAILY PO Last administered on 01/02/17 08:11; Admin Dose 5 MG; Start 12/26/16 at 09:00 Mirtazapine (Remeron) 15 mg HS PO Last administered on 12/31/16 21:16; Admin Dose 15 MG; Start 12/26/16 at 21:00 Venlafaxine HCl (Effexor Xr) 150 mg BID PO Last administered on 01/02/17 08:11 ; Admin Dose 150 MG; Start 12/26/16 at 09:00 Silver Sulfadiazine (Thermazene 1% 25 Gm) 1 applic BID TOP Last administered on 01/02/17 08:12; Admin Dose 1 APPLIC; Start 12/26/16 at 21:00 Rifampin (Rifampin) 600 mg DAILY PO Last administered on 01/02/17 08:10; Admin Dose 600 MG; Start 12/27/16 at 14:00 Atorvastatin Calcium (Lipitor) 40 mg HS PO Last administered on 12/31/16 21:16 ; Admin Dose 40 MG; Start 12/28/16 at 21:00 Metoprolol Succinate (Toprol Xl) 12.5 mg BID PO Last administered on 01/02/17 08:11; Admin Dose 12.5 MG; Start 12/28/16 at 21:30 Magnesium Hydroxide (Milk Of Mag) 30 ml HS PO Last administered on 12/31/16 21 :16; Admin Dose 30 ML; Start 12/29/16 at 21:00 VALE TURCIOS MD Jan 02, 2017 11:00
--- NOTE | 2017-01-02 12:49 | CONS ---
Date/Time of Note Date/Time of Note DATE: 01/02/17 TIME: 12:47 Consult Date/Type/Reason Admit Date/Time Dec 23, 2016 at 02:25 Type of Consultation: ID Ordering Provider: JOS FOSTER MD Objective Vital Signs Date Time Temp Pulse Resp B/P Pulse Ox O2 Delivery O2 Flow Rate FiO2 01/02/17 12:14 58 01/02/17 12:10 98.0 16 111/62 95 01/02/17 07:50 21 01/01/17 20:00 Room Air Intake and Output 01/01/17 01/01/17 01/02/17 15:00 23:00 07:00 Intake Total 180 ml Balance 180 ml Results/Medications Result Diagram: 01/02/17 0634 01/02/17 0634 Results 24 hrs Laboratory Tests Test 01/01/17 17:09 01/01/17 21:02 01/02/17 06:34 01/02/17 07:48 Bedside Glucose 98 86 107 White Blood Count 8.0 Red Blood Count 4.53 L Hemoglobin 9.9 L Hematocrit 34.4 L Mean Corpuscular Volume 75.9 L Mean Corpuscular Hemoglobin 21.9 L Mean Corpuscular Hemoglobin Concent 28.8 L Red Cell Distribution Width 20.0 H Platelet Count 288 Mean Platelet Volume 10.5 H Neutrophils % 70.8 Lymphocytes % 17.7 Monocytes % 7.8 Eosinophils % 2.6 Basophils % 0.6 Nucleated Red Blood Cells % 0.0 Neutrophils # 5.6 Lymphocytes # 1.4 Monocytes # 0.6 Eosinophils # 0.2 Basophils # 0.1 Nucleated Red Blood Cells # 0.0 Sodium Level 139 Potassium Level 4.9 Chloride Level 104 Carbon Dioxide Level 28 Anion Gap 12 Blood Urea Nitrogen 33 H Creatinine 2.01 H Glucose Level 99 # Calcium Level 9.4 Test 01/02/17 11:57 Bedside Glucose 231 H Medications Current Medications Morphine Sulfate (morphine) 4 mg Q4H PRN IV PAIN LEVEL 6-10; Start 12/23/16 at 05:00 Miscellaneous Information 1 ea NOTE XX ; Start 12/23/16 at 08:00 Glucose (Glutose) 15 gm Q15M PRN PO DECREASED GLUCOSE; Start 12/23/16 at 08:00 Glucose (Glutose) 22.5 gm Q15M PRN PO DECREASED GLUCOSE; Start 12/23/16 at 08: 00 Dextrose (D50w Syringe) 25 ml Q15M PRN IV DECREASED GLUCOSE; Start 12/23/16 at 08:00 Dextrose (D50w Syringe) 50 ml Q15M PRN IV DECREASED GLUCOSE; Start 12/23/16 at 08:00 Glucagon (Glucagen) 1 mg Q15M PRN IM DECREASED GLUCOSE; Start 12/23/16 at 08: 00 Glucose (Glutose) 15 gm Q15M PRN BUCCAL DECREASED GLUCOSE; Start 12/23/16 at 08:00 Acetaminophen (Tylenol Tab) 650 mg Q6H PRN PO PAIN AND OR ELEVATED TEMP Last administered on 12/24/16 17:40; Admin Dose 650 MG; Start 12/23/16 at 14:30 Acetaminophen/ Hydrocodone Bitart ([place] (5/325)) 1 tab Q6H PRN PO PAIN LEVEL 6 -10 Last administered on 12/29/16 16:52; Admin Dose 1 TAB; Start 12/24/16 at 23:00 Pantoprazole (Protonix Tab) 40 mg DAILY@06 PO Last administered on 01/02/17 06 :14; Admin Dose 40 MG; Start 12/26/16 at 06:00 Clopidogrel Bisulfate (plaVIX) 75 mg DAILY PO Last administered on 01/02/17 08 :11; Admin Dose 75 MG; Start 12/26/16 at 09:00 Diagnostic Test (Pha) (Accu-Chek) 1 ea 02 XX ; Start 12/26/16 at 02:00 Digoxin (Digoxin) 0.125 mg DAILY PO Last administered on 01/02/17 08:12; Admin Dose 0.125 MG; Start 12/26/16 at 09:00 Lisinopril (Zestril) 5 mg DAILY PO Last administered on 01/02/17 08:11; Admin Dose 5 MG; Start 12/26/16 at 09:00 Mirtazapine (Remeron) 15 mg HS PO Last administered on 12/31/16 21:16; Admin Dose 15 MG; Start 12/26/16 at 21:00 Venlafaxine HCl (Effexor Xr) 150 mg BID PO Last administered on 01/02/17 08:11 ; Admin Dose 150 MG; Start 12/26/16 at 09:00 Silver Sulfadiazine (Thermazene 1% 25 Gm) 1 applic BID TOP Last administered on 01/02/17 08:12; Admin Dose 1 APPLIC; Start 12/26/16 at 21:00 Rifampin (Rifampin) 600 mg DAILY PO Last administered on 01/02/17 08:10; Admin Dose 600 MG; Start 12/27/16 at 14:00 Atorvastatin Calcium (Lipitor) 40 mg HS PO Last administered on 12/31/16 21:16 ; Admin Dose 40 MG; Start 12/28/16 at 21:00 Metoprolol Succinate (Toprol Xl) 12.5 mg BID PO Last administered on 01/02/17 08:11; Admin Dose 12.5 MG; Start 12/28/16 at 21:30 Magnesium Hydroxide (Milk Of Mag) 30 ml HS PO Last administered on 12/31/16 21 :16; Admin Dose 30 ML; Start 12/29/16 at 21:00 Assessment/Plan Chief Complaint/Hosp Course SUBJECTIVE: No events overnight, looks comfortable, no fevers. MICROBIOLOGY: Forehead wound grew MRSA. ANTIMICROBIALS: Rifampin, IV vancomycin. PHYSICAL EXAMINATION: GENERAL: Well-developed, elderly man in no distress. HEENT: Head atraumatic, normocephalic. Sclerae anicteric. Buccal mucosa dry. NECK: Supple. CHEST: Rise symmetrical. Breath sounds diminished to bases. HEART: S1, S2. ABDOMEN: Soft, bowel tones present. EXTREMITIES: Without cyanosis. SKIN: Dry, pale. There is erythema on the forehead. ASSESSMENT: 1. Methicillin-resistant Staphylococcus aureus cellulitis of the forehead with self- draining abscess. 2. Hypertension. 3. Chronic obstructive pulmonary disease. 4. Ischemic cardiomyopathy. 5. Chronic kidney disease stage III. PLAN: The patient remains stable. Will change Vanco to Daptomycin 2 to worsening renal f-n, continue local wound care per surgical rec-s DW staff Problems: ILENE JUDGE NP Jan 02, 2017 12:49
--- NOTE | 2017-01-02 13:28 | CONS ---
Date/Time of Note Date/Time of Note DATE: 01/02/17 TIME: 13:20 Consultation Date/Type/Reason Admit Date/Time Dec 23, 2016 at 02:25 Initial Consult Date THIS IS A LATE ENTERY FOR 01/01/17 DUE TO COMPUTER SYSTEM BEING DOWN YESTERDAY SUBJECTIVE: 76 y/o male being treated for scalp cellulitis and abscess. Cleared for surgical I&D on OR by cardio. No events overnight, alert. Looks comfortable, denies fevers. VS: 114/68 P:74 R:17 SO2: 98% T: 98.3 LABS: WBC-7.2 H&H: 9.7/33.3 MICROBIOLOGY: Forehead wound grew MRSA. ANTIMICROBIALS: Rifampin, IV vancomycin. PHYSICAL EXAMINATION: GENERAL: Well-developed, elderly man in no distress. HEENT: Head atraumatic, normocephalic. Sclerae anicteric. Buccal mucosa dry. NECK: Supple. CHEST: Rise symmetrical. Breath sounds diminished to bases. HEART: S1, S2. ABDOMEN: Soft, bowel tones present. EXTREMITIES: Without cyanosis. SKIN: Dry, pale. There is erythema on the forehead. ASSESSMENT: 1. Methicillin-resistant Staphylococcus aureus cellulitis of the forehead with self- draining abscess. 2. Hypertension. 3. Chronic obstructive pulmonary disease. 4. Ischemic cardiomyopathy. 5. Chronic kidney disease stage III. PLAN: The patient remains stable. Continue abx, local wound care per surgical rec-s. Type of Consultation: ID Referring Provider: JOS FOSTER MD Exam/Review of Systems Vital Signs Vitals Vital Signs Date Time Temp Pulse Resp B/P Pulse Ox O2 Delivery O2 Flow Rate FiO2 01/02/17 12:14 58 01/02/17 12:10 98.0 16 111/62 95 01/02/17 07:50 21 01/01/17 20:00 Room Air Intake and Output 01/01/17 01/01/17 01/02/17 14:59 22:59 06:59 Intake Total 180 ml Balance 180 ml Results Result Diagram: 01/02/17 0634 01/02/17 0634 Results 24 hrs Laboratory Tests Test 01/01/17 17:09 01/01/17 21:02 01/02/17 06:34 01/02/17 07:48 Bedside Glucose 98 86 107 White Blood Count 8.0 Red Blood Count 4.53 L Hemoglobin 9.9 L Hematocrit 34.4 L Mean Corpuscular Volume 75.9 L Mean Corpuscular Hemoglobin 21.9 L Mean Corpuscular Hemoglobin Concent 28.8 L Red Cell Distribution Width 20.0 H Platelet Count 288 Mean Platelet Volume 10.5 H Neutrophils % 70.8 Lymphocytes % 17.7 Monocytes % 7.8 Eosinophils % 2.6 Basophils % 0.6 Nucleated Red Blood Cells % 0.0 Neutrophils # 5.6 Lymphocytes # 1.4 Monocytes # 0.6 Eosinophils # 0.2 Basophils # 0.1 Nucleated Red Blood Cells # 0.0 Sodium Level 139 Potassium Level 4.9 Chloride Level 104 Carbon Dioxide Level 28 Anion Gap 12 Blood Urea Nitrogen 33 H Creatinine 2.01 H Glucose Level 99 # Calcium Level 9.4 Test 01/02/17 11:57 Bedside Glucose 231 H Medications Medications Current Medications Morphine Sulfate (morphine) 4 mg Q4H PRN IV PAIN LEVEL 6-10; Start 12/23/16 at 05:00 Miscellaneous Information 1 ea NOTE XX ; Start 12/23/16 at 08:00 Glucose (Glutose) 15 gm Q15M PRN PO DECREASED GLUCOSE; Start 12/23/16 at 08:00 Glucose (Glutose) 22.5 gm Q15M PRN PO DECREASED GLUCOSE; Start 12/23/16 at 08: 00 Dextrose (D50w Syringe) 25 ml Q15M PRN IV DECREASED GLUCOSE; Start 12/23/16 at 08:00 Dextrose (D50w Syringe) 50 ml Q15M PRN IV DECREASED GLUCOSE; Start 12/23/16 at 08:00 Glucagon (Glucagen) 1 mg Q15M PRN IM DECREASED GLUCOSE; Start 12/23/16 at 08: 00 Glucose (Glutose) 15 gm Q15M PRN BUCCAL DECREASED GLUCOSE; Start 12/23/16 at 08:00 Acetaminophen (Tylenol Tab) 650 mg Q6H PRN PO PAIN AND OR ELEVATED TEMP Last administered on 12/24/16 17:40; Admin Dose 650 MG; Start 12/23/16 at 14:30 Acetaminophen/ Hydrocodone Bitart ([place] (5/325)) 1 tab Q6H PRN PO PAIN LEVEL 6 -10 Last administered on 12/29/16 16:52; Admin Dose 1 TAB; Start 12/24/16 at 23:00 Pantoprazole (Protonix Tab) 40 mg DAILY@06 PO Last administered on 01/02/17 06 :14; Admin Dose 40 MG; Start 12/26/16 at 06:00 Clopidogrel Bisulfate (plaVIX) 75 mg DAILY PO Last administered on 01/02/17 08 :11; Admin Dose 75 MG; Start 12/26/16 at 09:00 Diagnostic Test (Pha) (Accu-Chek) 1 ea 02 XX ; Start 12/26/16 at 02:00 Digoxin (Digoxin) 0.125 mg DAILY PO Last administered on 01/02/17 08:12; Admin Dose 0.125 MG; Start 12/26/16 at 09:00 Lisinopril (Zestril) 5 mg DAILY PO Last administered on 01/02/17 08:11; Admin Dose 5 MG; Start 12/26/16 at 09:00 Mirtazapine (Remeron) 15 mg HS PO Last administered on 12/31/16 21:16; Admin Dose 15 MG; Start 12/26/16 at 21:00 Venlafaxine HCl (Effexor Xr) 150 mg BID PO Last administered on 01/02/17 08:11 ; Admin Dose 150 MG; Start 12/26/16 at 09:00 Silver Sulfadiazine (Thermazene 1% 25 Gm) 1 applic BID TOP Last administered on 01/02/17 08:12; Admin Dose 1 APPLIC; Start 12/26/16 at 21:00 Rifampin (Rifampin) 600 mg DAILY PO Last administered on 01/02/17 08:10; Admin Dose 600 MG; Start 12/27/16 at 14:00 Atorvastatin Calcium (Lipitor) 40 mg HS PO Last administered on 12/31/16 21:16 ; Admin Dose 40 MG; Start 12/28/16 at 21:00 Metoprolol Succinate (Toprol Xl) 12.5 mg BID PO Last administered on 01/02/17 08:11; Admin Dose 12.5 MG; Start 12/28/16 at 21:30 Magnesium Hydroxide 30 ml 30 ml HS PO Last administered on 12/31/16 21:16; Admin Dose 30 ML; Start 12/29/16 at 21:00 Daptomycin/Sodium Chloride (Cubicin/NS) 100 ml @ 200 mls/hr Q48H IVPB ; Start 01/02/17 at 14:00 ADELIA CARDONA Jan 02, 2017 13:28
--- NOTE | 2017-01-02 14:23 | PN ---
Date/Time of Note Date/Time of Note DATE: 01/02/17 TIME: 14:18 Assessment/Plan VTE Prophylaxis VTE Prophylaxis Intervention: SCD's Lines/Catheters IV [facility]from [facility] Saline Lock Urinary Cath still in place: No Assessment/Plan Chief Complaint/Hosp Course Patient is cleared by cardiology and internal medicine for I&D of scalp wound. Assessment/Plan - Scalp cellulitis/abscess. Wound cx +MRSA. Continue Daptomycin. Dr. Oliva is following in infection disease consultation. Dr. Saldivar is following in general surgery. - Ischemic cardiomyopathy with ejection fraction of 30% per last echo, continue Coreg per cardiology recs. Dr. Choudhury is following in cardiology consultation. - Bradycardia. Status post Lexiscan with no ischemia, continue telemetry monitoring. - Chronic kidney disease stage III. Monitor renal function and avoid nephrotoxic drugs. - Coronary artery disease with history of stent placement. Continue Plavix. - Chronic obstructive pulmonary disease. - Diabetes mellitus, hemoglobin A1c is 6.6, continue Amaryl and NovoLog per sliding scale. 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 Further recommendations based on clinical course. Plan of care discussed with Dr. Giron Problems: Exam/Review of Systems Vital Signs Vitals Vital Signs Date Time Temp Pulse Resp B/P Pulse Ox O2 Delivery O2 Flow Rate FiO2 01/02/17 12:14 58 01/02/17 12:10 98.0 16 111/62 95 01/02/17 07:50 21 01/01/17 20:00 Room Air Intake and Output 01/01/17 01/01/17 01/02/17 15:00 23:00 07:00 Intake Total 180 ml Balance 180 ml Exam Constitutional: alert, oriented Respiratory: normal air movement Cardiovascular: nl pulses Gastrointestinal: non-tender, soft Extremities: normal pulses Neurological: nl mental status Skin: other (scalp wound) Results Result Diagram: 01/02/17 0634 01/02/17 0634 Results 24 hrs Laboratory Tests Test 01/01/17 17:09 01/01/17 21:02 01/02/17 06:34 01/02/17 07:48 Bedside Glucose 98 86 107 White Blood Count 8.0 Red Blood Count 4.53 L Hemoglobin 9.9 L Hematocrit 34.4 L Mean Corpuscular Volume 75.9 L Mean Corpuscular Hemoglobin 21.9 L Mean Corpuscular Hemoglobin Concent 28.8 L Red Cell Distribution Width 20.0 H Platelet Count 288 Mean Platelet Volume 10.5 H Neutrophils % 70.8 Lymphocytes % 17.7 Monocytes % 7.8 Eosinophils % 2.6 Basophils % 0.6 Nucleated Red Blood Cells % 0.0 Neutrophils # 5.6 Lymphocytes # 1.4 Monocytes # 0.6 Eosinophils # 0.2 Basophils # 0.1 Nucleated Red Blood Cells # 0.0 Sodium Level 139 Potassium Level 4.9 Chloride Level 104 Carbon Dioxide Level 28 Anion Gap 12 Blood Urea Nitrogen 33 H Creatinine 2.01 H Glucose Level 99 # Calcium Level 9.4 Test 01/02/17 11:57 Bedside Glucose 231 H Medications Medications Current Medications Morphine Sulfate (morphine) 4 mg Q4H PRN IV PAIN LEVEL 6-10; Start 12/23/16 at 05:00 Miscellaneous Information 1 ea NOTE XX ; Start 12/23/16 at 08:00 Glucose (Glutose) 15 gm Q15M PRN PO DECREASED GLUCOSE; Start 12/23/16 at 08:00 Glucose (Glutose) 22.5 gm Q15M PRN PO DECREASED GLUCOSE; Start 12/23/16 at 08: 00 Dextrose (D50w Syringe) 25 ml Q15M PRN IV DECREASED GLUCOSE; Start 12/23/16 at 08:00 Dextrose (D50w Syringe) 50 ml Q15M PRN IV DECREASED GLUCOSE; Start 12/23/16 at 08:00 Glucagon (Glucagen) 1 mg Q15M PRN IM DECREASED GLUCOSE; Start 12/23/16 at 08: 00 Glucose (Glutose) 15 gm Q15M PRN BUCCAL DECREASED GLUCOSE; Start 12/23/16 at 08:00 Acetaminophen (Tylenol Tab) 650 mg Q6H PRN PO PAIN AND OR ELEVATED TEMP Last administered on 12/24/16 17:40; Admin Dose 650 MG; Start 12/23/16 at 14:30 Acetaminophen/ Hydrocodone Bitart ([place] (5/325)) 1 tab Q6H PRN PO PAIN LEVEL 6 -10 Last administered on 12/29/16 16:52; Admin Dose 1 TAB; Start 12/24/16 at 23:00 Pantoprazole (Protonix Tab) 40 mg DAILY@06 PO Last administered on 01/02/17 06 :14; Admin Dose 40 MG; Start 12/26/16 at 06:00 Clopidogrel Bisulfate (plaVIX) 75 mg DAILY PO Last administered on 01/02/17 08 :11; Admin Dose 75 MG; Start 12/26/16 at 09:00 Diagnostic Test (Pha) (Accu-Chek) 1 ea 02 XX ; Start 12/26/16 at 02:00 Digoxin (Digoxin) 0.125 mg DAILY PO Last administered on 01/02/17 08:12; Admin Dose 0.125 MG; Start 12/26/16 at 09:00 Lisinopril (Zestril) 5 mg DAILY PO Last administered on 01/02/17 08:11; Admin Dose 5 MG; Start 12/26/16 at 09:00 Mirtazapine (Remeron) 15 mg HS PO Last administered on 12/31/16 21:16; Admin Dose 15 MG; Start 12/26/16 at 21:00 Venlafaxine HCl (Effexor Xr) 150 mg BID PO Last administered on 01/02/17 08:11 ; Admin Dose 150 MG; Start 12/26/16 at 09:00 Silver Sulfadiazine (Thermazene 1% 25 Gm) 1 applic BID TOP Last administered on 01/02/17 08:12; Admin Dose 1 APPLIC; Start 12/26/16 at 21:00 Rifampin (Rifampin) 600 mg DAILY PO Last administered on 01/02/17 08:10; Admin Dose 600 MG; Start 12/27/16 at 14:00 Atorvastatin Calcium (Lipitor) 40 mg HS PO Last administered on 12/31/16 21:16 ; Admin Dose 40 MG; Start 12/28/16 at 21:00 Metoprolol Succinate (Toprol Xl) 12.5 mg BID PO Last administered on 01/02/17 08:11; Admin Dose 12.5 MG; Start 12/28/16 at 21:30 Magnesium Hydroxide 30 ml 30 ml HS PO Last administered on 12/31/16 21:16; Admin Dose 30 ML; Start 12/29/16 at 21:00 Daptomycin/Sodium Chloride (Cubicin/NS) 100 ml @ 200 mls/hr Q48H IVPB ; Start 01/02/17 at 14:00 SELMA ELMORE Jan 02, 2017 14:23
--- NOTE | 2017-01-02 14:41 | CONS ---
Date/Time of Note Date/Time of Note DATE: 01/02/17 TIME: 14:38 Assessment/Plan Assessment/Plan Chief Complaint/Hosp Course pt admitted with forehead cellulitis with self draining abscess, seen by ID, started on IV abx, noted to have Rising Cr and renal has been consulted for MELINDA on CKD Problems: Additional Assessment/Plan 1. MELINDA on CKD Due to prerenal azotemia + ATN 2. MRSA forehead cellulitis with Abscess 3. H/o CKD III Due to HTN 4. HTN 5. Bipolar 6. DM II Plan : IV abx vancomycin , renally dose it , Cr bumped to 2.01- will give IVF NS at 75 cc/hr x 2 liter then stop plan for debridement, pending cardiology clearance, Renal US c/w medical renal disease, no hydronephrosis Urine studies unremarkable, ID following will follow up Consultation Date/Type/Reason Admit Date/Time Dec 23, 2016 at 02:25 Initial Consult Date 12/28/16 Type of Consultation: NEPHROLOGy Referring Provider: JOS FOSTER MD 24 HR Interval Summary Free Text/Dictation Cr bumped to 2.01, BP stable, Cr continues to rise Exam/Review of Systems Vital Signs Vitals Vital Signs Date Time Temp Pulse Resp B/P Pulse Ox O2 Delivery O2 Flow Rate FiO2 01/02/17 12:14 58 01/02/17 12:10 98.0 16 111/62 95 01/02/17 07:50 21 01/01/17 20:00 Room Air Intake and Output 01/01/17 01/01/17 01/02/17 14:59 22:59 06:59 Intake Total 180 ml Balance 180 ml Exam Constitutional: alert Respiratory: clear to auscultation, normal air movement Cardiovascular: nl pulses, regular rate and rhythm Gastrointestinal: non-tender, soft Musculoskeletal: nl extremities to inspection, nl gait and stance Extremities: normal pulses Neurological: AUTOMOTIVE GLASS TECHNICIAN II-XII intact, nl mental status, nl speech, nl strength Results Result Diagram: 01/02/17 0634 01/02/17 0634 Results 24 hrs Laboratory Tests Test 01/01/17 17:09 01/01/17 21:02 01/02/17 06:34 01/02/17 07:48 Bedside Glucose 98 86 107 White Blood Count 8.0 Red Blood Count 4.53 L Hemoglobin 9.9 L Hematocrit 34.4 L Mean Corpuscular Volume 75.9 L Mean Corpuscular Hemoglobin 21.9 L Mean Corpuscular Hemoglobin Concent 28.8 L Red Cell Distribution Width 20.0 H Platelet Count 288 Mean Platelet Volume 10.5 H Neutrophils % 70.8 Lymphocytes % 17.7 Monocytes % 7.8 Eosinophils % 2.6 Basophils % 0.6 Nucleated Red Blood Cells % 0.0 Neutrophils # 5.6 Lymphocytes # 1.4 Monocytes # 0.6 Eosinophils # 0.2 Basophils # 0.1 Nucleated Red Blood Cells # 0.0 Sodium Level 139 Potassium Level 4.9 Chloride Level 104 Carbon Dioxide Level 28 Anion Gap 12 Blood Urea Nitrogen 33 H Creatinine 2.01 H Glucose Level 99 # Calcium Level 9.4 Test 01/02/17 11:57 Bedside Glucose 231 H Medications Medications Current Medications Morphine Sulfate (morphine) 4 mg Q4H PRN IV PAIN LEVEL 6-10; Start 12/23/16 at 05:00 Miscellaneous Information 1 ea NOTE XX ; Start 12/23/16 at 08:00 Glucose (Glutose) 15 gm Q15M PRN PO DECREASED GLUCOSE; Start 12/23/16 at 08:00 Glucose (Glutose) 22.5 gm Q15M PRN PO DECREASED GLUCOSE; Start 12/23/16 at 08: 00 Dextrose (D50w Syringe) 25 ml Q15M PRN IV DECREASED GLUCOSE; Start 12/23/16 at 08:00 Dextrose (D50w Syringe) 50 ml Q15M PRN IV DECREASED GLUCOSE; Start 12/23/16 at 08:00 Glucagon (Glucagen) 1 mg Q15M PRN IM DECREASED GLUCOSE; Start 12/23/16 at 08: 00 Glucose (Glutose) 15 gm Q15M PRN BUCCAL DECREASED GLUCOSE; Start 12/23/16 at 08:00 Acetaminophen (Tylenol Tab) 650 mg Q6H PRN PO PAIN AND OR ELEVATED TEMP Last administered on 12/24/16 17:40; Admin Dose 650 MG; Start 12/23/16 at 14:30 Acetaminophen/ Hydrocodone Bitart ([place] (5/325)) 1 tab Q6H PRN PO PAIN LEVEL 6 -10 Last administered on 12/29/16 16:52; Admin Dose 1 TAB; Start 12/24/16 at 23:00 Pantoprazole (Protonix Tab) 40 mg DAILY@06 PO Last administered on 01/02/17 06 :14; Admin Dose 40 MG; Start 12/26/16 at 06:00 Clopidogrel Bisulfate (plaVIX) 75 mg DAILY PO Last administered on 01/02/17 08 :11; Admin Dose 75 MG; Start 12/26/16 at 09:00 Diagnostic Test (Pha) (Accu-Chek) 1 ea 02 XX ; Start 12/26/16 at 02:00 Digoxin (Digoxin) 0.125 mg DAILY PO Last administered on 01/02/17 08:12; Admin Dose 0.125 MG; Start 12/26/16 at 09:00 Lisinopril (Zestril) 5 mg DAILY PO Last administered on 01/02/17 08:11; Admin Dose 5 MG; Start 12/26/16 at 09:00 Mirtazapine (Remeron) 15 mg HS PO Last administered on 12/31/16 21:16; Admin Dose 15 MG; Start 12/26/16 at 21:00 Venlafaxine HCl (Effexor Xr) 150 mg BID PO Last administered on 01/02/17 08:11 ; Admin Dose 150 MG; Start 12/26/16 at 09:00 Silver Sulfadiazine (Thermazene 1% 25 Gm) 1 applic BID TOP Last administered on 01/02/17 08:12; Admin Dose 1 APPLIC; Start 12/26/16 at 21:00 Rifampin (Rifampin) 600 mg DAILY PO Last administered on 01/02/17 08:10; Admin Dose 600 MG; Start 12/27/16 at 14:00 Atorvastatin Calcium (Lipitor) 40 mg HS PO Last administered on 12/31/16 21:16 ; Admin Dose 40 MG; Start 12/28/16 at 21:00 Metoprolol Succinate (Toprol Xl) 12.5 mg BID PO Last administered on 01/02/17 08:11; Admin Dose 12.5 MG; Start 12/28/16 at 21:30 Magnesium Hydroxide 30 ml 30 ml HS PO Last administered on 12/31/16 21:16; Admin Dose 30 ML; Start 12/29/16 at 21:00 Daptomycin/Sodium Chloride (Cubicin/NS) 100 ml @ 200 mls/hr Q48H IVPB ; Start 01/02/17 at 14:00 MIHAI JOSEPH MD Jan 02, 2017 14:41
[2017-01-02] MEDS: SOD CHLORIDE 0.9% 1,000 ML IV SCH (14:58)
[2017-01-02] MEDS: DAPTOMYCIN 385 MG in SOD CHLORIDE 0.9% 100 ML IVPB SCH (14:58)
[2017-01-02] MEDS: MAGNESIUM HYDROXIDE 30ML CUP PO SCH (21:00)
[2017-01-02] MEDS: POLYETHYLENE GLYCOL 17 GM PACKET PO SCH (21:00)
[2017-01-02] MEDS: ATORVASTATIN 40 MG TAB PO SCH (22:38)
[2017-01-02] MEDS: MIRTAZAPINE 15 MG TAB PO SCH (22:40)
[2017-01-03] VITALS (12 sets, daily range): BP systolic 100–166; BP diastolic 55–83; PULSE 54–73; RESP 16–20
[2017-01-03] MEDS: ALBUTEROL/IPRATROPIUM (NEB) 3 ML AMP HHN SCH ×4 (01:22→19:18)
[2017-01-03] MEDS: ACCU-CHEK XX SCH (02:00)
[2017-01-03] MEDS: PANTOPRAZOLE (EC) 40 MG TAB PO SCH (06:06)
[2017-01-03] MEDS: LEVOTHYROXINE 150 MCG TAB PO SCH (06:07)
--- NOTE | 2017-01-03 06:10 | PN ---
DATE: 01/02/2017 SUBJECTIVE: No new events. No new complaints. OBJECTIVE: GENERAL: Awake, alert. VITAL SIGNS: Temperature 97.8, heart rate 61, respirations 16, blood pressure 101/57, saturation 98% on room air. LABORATORY DATA: WBC today is 8,000 with 70% segmented. Hemoglobin 9.9, hematocrit 34.4. Chemistry: BUN has increased to 33, creatinine has increased to 2.01. Calcium is 9.4. Sodium, potassium are normal. Coagulation on the 4th was tested PT is 14.5, INR is 1.13, PTT is slightly elevated at 37.5. The dressing was changed and has had more drainage. The buldge is flat now, but again under the skin. The fascia looks necrotic, so definitely needs some debridement under anesthesia in the operating room. ASSESSMENT: A 76-year-old gentleman admitted with swelling and pain and redness of the right forehead. The impression was cellulitis and abscess, was admitted. Culture of the wound was MRSA and started on vancomycin and then the dressing was changed and local debridement also was done by myself . Patient has many medical issues, eventually was cleared by the mill platform supervisor for debridement in the operating room, and today, I asked the mill platform supervisor if we could stop the Plavix and aspirin because when we changing the dressing.The patient is oozing some blood. Dr. Choudhury stated that the stent he had was many years ago. We can stop the Plavix at this time to prevent further bleeding in the operating room. Also, the creatinine has been going up so, they have changed the antibiotics from vancomycin to daptomycin. Gentle hydration was offered by the camera repair technician to increase the kidney perfusion. I am planning to proceed with debridement in the operating room on Sunday and we are going to stop the Plavix as of tomorrow morning, Sunday. Dictated By: ETHLE PHAN/ALBARO Conf#: [id number] DID#: [id number] MTDD
[2017-01-03] MEDS: INSULIN ASPART [NOVOLOG] 3 ML PEN SC SCH ×7 (08:00→20:21)
[2017-01-03] MEDS: POLYETHYLENE GLYCOL 17 GM PACKET PO SCH ×2 (08:56→20:16)
[2017-01-03] MEDS: VENLAFAXINE (XR) 75 MG CAP PO SCH ×2 (08:56→20:12)
[2017-01-03] MEDS: SOD CHLORIDE 0.9% 1,000 ML IV SCH (08:56)
[2017-01-03] MEDS: RIFAMPIN 300 MG CAP PO SCH (08:56)
[2017-01-03] MEDS: GLIMEPIRIDE 2 MG TAB PO SCH (08:58)
[2017-01-03] MEDS: SILVER SULFADIAZINE 1% 25 GM CR TOP SCH ×2 (08:59→20:12)
[2017-01-03] MEDS: METOPROLOL (XL) 25 MG TAB PO SCH ×2 (08:59→20:14)
[2017-01-03] MEDS: DIGOXIN 0.125 MG TAB PO SCH (09:00)
--- NOTE | 2017-01-03 13:59 | CONS ---
Date/Time of Note Date/Time of Note DATE: 01/03/17 TIME: 13:58 Consult Date/Type/Reason Admit Date/Time Dec 23, 2016 at 02:25 Type of Consultation: ID Ordering Provider: JOS FOSTER MD Objective Vital Signs Date Time Temp Pulse Resp B/P Pulse Ox O2 Delivery O2 Flow Rate FiO2 01/03/17 12:23 97.8 67 19 114/56 96 01/03/17 08:43 21 01/01/17 20:00 Room Air Intake and Output 01/02/17 01/02/17 01/03/17 15:00 23:00 07:00 Intake Total 1150 ml 820 ml Output Total 500 ml 800 ml Balance 650 ml 20 ml Results/Medications Result Diagram: 01/02/1734 01/02/17 0634 Results 24 hrs Laboratory Tests Test 01/02/17 17:38 01/02/17 22:45 01/03/17 06:26 01/03/17 08:57 Bedside Glucose 118 94 109 Lab Scanned Report REFERENCE LAB Test 01/03/17 12:42 Bedside Glucose 153 Medications Current Medications Morphine Sulfate (morphine) 4 mg Q4H PRN IV PAIN LEVEL 6-10; Start 12/23/16 at 05:00 Miscellaneous Information 1 ea NOTE XX ; Start 12/23/16 at 08:00 Glucose (Glutose) 15 gm Q15M PRN PO DECREASED GLUCOSE; Start 12/23/16 at 08:00 Glucose (Glutose) 22.5 gm Q15M PRN PO DECREASED GLUCOSE; Start 12/23/16 at 08: 00 Dextrose (D50w Syringe) 25 ml Q15M PRN IV DECREASED GLUCOSE; Start 12/23/16 at 08:00 Dextrose (D50w Syringe) 50 ml Q15M PRN IV DECREASED GLUCOSE; Start 12/23/16 at 08:00 Glucagon (Glucagen) 1 mg Q15M PRN IM DECREASED GLUCOSE; Start 12/23/16 at 08: 00 Glucose (Glutose) 15 gm Q15M PRN BUCCAL DECREASED GLUCOSE; Start 12/23/16 at 08:00 Acetaminophen (Tylenol Tab) 650 mg Q6H PRN PO PAIN AND OR ELEVATED TEMP Last administered on 12/24/16t 17:40; Admin Dose 650 MG; Start 12/23/16 at 14:30 Acetaminophen/ Hydrocodone Bitart ([place] (5/325)) 1 tab Q6H PRN PO PAIN LEVEL 6 -10 Last administered on 12/29/16 16:52; Admin Dose 1 TAB; Start 12/24/16 at 23:00 Pantoprazole (Protonix Tab) 40 mg DAILY@06 PO Last administered on 01/03/17 06 :06; Admin Dose 40 MG; Start 12/26/16 at 06:00 Clopidogrel Bisulfate (plaVIX) 75 mg DAILY PO Last administered on 01/02/17 08 :11; Admin Dose 75 MG; Start 12/26/16 at 09:00; Status Future Hold Diagnostic Test (Pha) (Accu-Chek) 1 ea 02 XX ; Start 12/26/16 at 02:00 Digoxin (Digoxin) 0.125 mg DAILY PO Last administered on 01/03/17 09:00; Admin Dose 0.125 MG; Start 12/26/16 at 09:00 Mirtazapine (Remeron) 15 mg HS PO Last administered on 01/02/17 22:40; Admin Dose 15 MG; Start 12/26/16 at 21:00 Venlafaxine HCl (Effexor Xr) 150 mg BID PO Last administered on 01/03/17 08:56 ; Admin Dose 150 MG; Start 12/26/16 at 09:00 Silver Sulfadiazine (Thermazene 1% 25 Gm) 1 applic BID TOP Last administered on 01/03/17 08:59; Admin Dose 1 APPLIC; Start 12/26/16 at 21:00 Rifampin (Rifampin) 600 mg DAILY PO Last administered on 01/03/17 08:56; Admin Dose 600 MG; Start 12/27/16 at 14:00 Atorvastatin Calcium (Lipitor) 40 mg HS PO Last administered on 01/02/17 22:38 ; Admin Dose 40 MG; Start 12/28/16 at 21:00 Metoprolol Succinate (Toprol Xl) 12.5 mg BID PO Last administered on 01/03/17 08:59; Admin Dose 12.5 MG; Start 12/28/16 at 21:30 Magnesium Hydroxide 30 ml 30 ml HS PO Last administered on 12/31/16 21:16; Admin Dose 30 ML; Start 12/29/16 at 21:00 Daptomycin 385 mg/ Sodium Chloride 100 ml @ 200 mls/hr Q48H IVPB Last administered on 01/02/17 14:58; Admin Dose 200 MLS/HR; Start 01/02/17 at 14:00 Sodium Chloride (NS) 1,000 ml @ 75 mls/hr [id number] IV Last administered on 01/03 08:56; Admin Dose 75 MLS/HR; Start 01/02/17 at 15:00; Stop 01/03/17 at 17: 39 Polyethylene Glycol (Miralax) 17 gm BID PO Last administered on 01/03/17 08:56 ; Admin Dose 17 GM; Start 01/02/17 at 21:00 Assessment/Plan Chief Complaint/Hosp Course SUBJECTIVE: No events overnight, looks comfortable, no fevers. MICROBIOLOGY: Forehead wound grew MRSA. ANTIMICROBIALS: Rifampin, IV Daptomycin PHYSICAL EXAMINATION: GENERAL: Well-developed, elderly man in no distress. HEENT: Head atraumatic, normocephalic. Sclerae anicteric. Buccal mucosa dry. NECK: Supple. CHEST: Rise symmetrical. Breath sounds diminished to bases. HEART: S1, S2. ABDOMEN: Soft, bowel tones present. EXTREMITIES: Without cyanosis. SKIN: Dry, pale. There is erythema on the forehead. ASSESSMENT: 1. Methicillin-resistant Staphylococcus aureus cellulitis of the forehead with self- draining abscess. 2. Hypertension. 3. Chronic obstructive pulmonary disease. 4. Ischemic cardiomyopathy. 5. Chronic kidney disease stage III. PLAN: The patient remains stable. Continue abx, pending debridement DW staff Problems: ILENE JUDGE NP Jan 03, 2017 13:59
--- NOTE | 2017-01-03 15:15 | PN ---
Date/Time of Note Date/Time of Note DATE: 01/03/17 TIME: 15:12 Assessment/Plan VTE Prophylaxis VTE Prophylaxis Intervention: SCD's Lines/Catheters IV Catheter Type (from Nrs): Peripheral IV Urinary Cath still in place: No Assessment/Plan Chief Complaint/Hosp Course No acute events overnight, patient is awake alert, pain is well controlled. Hold Plavix. Plan for I&D of scalp wound in OR on Sunday. Assessment/Plan - Scalp cellulitis/abscess. Wound cx +MRSA. Continue Daptomycin. Dr. Oliva is following in infection disease consultation. Dr. Saldivar is following in general surgery. - Ischemic cardiomyopathy with ejection fraction of 30% per last echo, continue Coreg per cardiology recs. Dr. Choudhury is following in cardiology consultation. - Bradycardia. Status post Lexiscan with no ischemia, continue telemetry monitoring. - Chronic kidney disease stage III. Monitor renal function and avoid nephrotoxic drugs. - Coronary artery disease with history of stent placement. - Chronic obstructive pulmonary disease. - Diabetes mellitus, hemoglobin A1c is 6.6, continue Amaryl and NovoLog per sliding scale. 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 Further recommendations based on clinical course. Plan of care discussed with Dr. Giron Problems: Exam/Review of Systems Vital Signs Vitals Vital Signs Date Time Temp Pulse Resp B/P Pulse Ox O2 Delivery O2 Flow Rate FiO2 01/03/17 14:55 65 18 96 21 01/03/17 12:23 97.8 114/56 01/01/17 20:00 Room Air Intake and Output 01/02/17 01/02/17 01/03/17 14:59 22:59 06:59 Intake Total 1150 ml 820 ml Output Total 500 ml 800 ml Balance 650 ml 20 ml Exam Constitutional: alert, oriented Respiratory: normal air movement Cardiovascular: nl pulses Gastrointestinal: non-tender, soft Extremities: normal pulses Neurological: nl mental status Skin: other (scalp wound) Results Result Diagram: 01/02/17 0634 01/02/17 0634 Results 24 hrs Laboratory Tests Test 01/02/17 17:38 01/02/17 22:45 01/03/17 06:26 01/03/17 08:57 Bedside Glucose 118 94 109 Lab Scanned Report REFERENCE LAB Test 01/03/17 12:42 Bedside Glucose 153 Medications Medications Current Medications Morphine Sulfate (morphine) 4 mg Q4H PRN IV PAIN LEVEL 6-10; Start 12/23/16 at 05:00 Miscellaneous Information 1 ea NOTE XX ; Start 12/23/16 at 08:00 Glucose (Glutose) 15 gm Q15M PRN PO DECREASED GLUCOSE; Start 12/23/16 at 08:00 Glucose (Glutose) 22.5 gm Q15M PRN PO DECREASED GLUCOSE; Start 12/23/16 at 08: 00 Dextrose (D50w Syringe) 25 ml Q15M PRN IV DECREASED GLUCOSE; Start 12/23/16 at 08:00 Dextrose (D50w Syringe) 50 ml Q15M PRN IV DECREASED GLUCOSE; Start 12/23/16 at 08:00 Glucagon (Glucagen) 1 mg Q15M PRN IM DECREASED GLUCOSE; Start 12/23/16 at 08: 00 Glucose (Glutose) 15 gm Q15M PRN BUCCAL DECREASED GLUCOSE; Start 12/23/16 at 08:00 Acetaminophen (Tylenol Tab) 650 mg Q6H PRN PO PAIN AND OR ELEVATED TEMP Last administered on 12/24/16 17:40; Admin Dose 650 MG; Start 12/23/16 at 14:30 Acetaminophen/ Hydrocodone Bitart ([place] (5/325)) 1 tab Q6H PRN PO PAIN LEVEL 6 -10 Last administered on 12/29/16 16:52; Admin Dose 1 TAB; Start 12/24/16 at 23:00 Pantoprazole (Protonix Tab) 40 mg DAILY@06 PO Last administered on 01/03/17 06 :06; Admin Dose 40 MG; Start 12/26/16 at 06:00 Clopidogrel Bisulfate (plaVIX) 75 mg DAILY PO Last administered on 01/02/17 08 :11; Admin Dose 75 MG; Start 12/26/16 at 09:00; Status Future Hold Diagnostic Test (Pha) (Accu-Chek) 1 ea 02 XX ; Start 12/26/16 at 02:00 Digoxin (Digoxin) 0.125 mg DAILY PO Last administered on 01/03/17 09:00; Admin Dose 0.125 MG; Start 12/26/16 at 09:00 Mirtazapine (Remeron) 15 mg HS PO Last administered on 01/02/17 22:40; Admin Dose 15 MG; Start 12/26/16 at 21:00 Venlafaxine HCl (Effexor Xr) 150 mg BID PO Last administered on 01/03/17 08:56 ; Admin Dose 150 MG; Start 12/26/16 at 09:00 Silver Sulfadiazine (Thermazene 1% 25 Gm) 1 applic BID TOP Last administered on 01/03/17 08:59; Admin Dose 1 APPLIC; Start 12/26/16 at 21:00 Rifampin (Rifampin) 600 mg DAILY PO Last administered on 01/03/17 08:56; Admin Dose 600 MG; Start 12/27/16 at 14:00 Atorvastatin Calcium (Lipitor) 40 mg HS PO Last administered on 01/02/17 22:38 ; Admin Dose 40 MG; Start 12/28/16 at 21:00 Metoprolol Succinate (Toprol Xl) 12.5 mg BID PO Last administered on 01/03/17 08:59; Admin Dose 12.5 MG; Start 12/28/16 at 21:30 Magnesium Hydroxide 30 ml 30 ml HS PO Last administered on 12/31/16 21:16; Admin Dose 30 ML; Start 12/29/16 at 21:00 Daptomycin 385 mg/ Sodium Chloride 100 ml @ 200 mls/hr Q48H IVPB Last administered on 01/02/17 14:58; Admin Dose 200 MLS/HR; Start 01/02/17 at 14:00 Sodium Chloride (NS) 1,000 ml @ 75 mls/hr [id number] IV Last administered on 01/03 08:56; Admin Dose 75 MLS/HR; Start 01/02/17 at 15:00; Stop 01/03/17 at 17: 39 Polyethylene Glycol (Miralax) 17 gm BID PO Last administered on 01/03/17 08:56 ; Admin Dose 17 GM; Start 01/02/17 at 21:00 SELMA ELMORE Jan 03, 2017 15:15
--- NOTE | 2017-01-03 15:40 | RADRPT ---
Vent Rate: 79 bpm RR Interval: 0 msec MO Interval: 216 msec QRS Duration: 152 msec QT Interval: 436 msec QTC Interval: 499 msec P-R-T [place]: 64 - -23 - 0 degrees Sinus rhythm with sinus arrhythmia with 1st degree AV block with frequent , and consecutive premature ventricular complexes and fusion complexes Abnormal ECG Electronically Signed By: Andrew Garcia [id number]
--- NOTE | 2017-01-03 19:08 | PN ---
DATE: 01/03/2017 SUBJECTIVE: Does not have any specific complaint. He is getting respiratory treatment and nebulizer. Has been passing gas. Last night had a bowel movement , not today. No nausea, no vomiting, no fever. OBJECTIVE GENERAL: Awake, alert, comfortable. VITAL SIGNS: Temperature 97.8, heart rate 67, respirations 19, blood pressure 114/56, saturation 96% on room air. LABORATORY DATA: No hematology today. POC glucose today is 109 and 153 on 2 occasions. Apparently, the dressing was changed by the nurse today and there has been some moderate amount of discharge, the wounds is flat. ASSESSMENT AND PLAN: A 76-year-old gentleman who presented with forehead cellulitis and abscess which grew methicillin-resistant Staphylococcus aureus. The patient is on appropriate antibiotic in regard to the sensitivity and also the kidney function. The patient was cleared by the telecommunications administrator for the debridement in the operating room and since the patient has been on Plavix, we stopped Plavix as of today. We will give 48 hours and I am going to debride the patient on Sunday, already has been scheduled for 10 a.m. I discussed with the patient. He agrees. Filter Cloth Maker, infectious disease and other colleagues managing the other problem . Dictated By: ETHEL PHAN/ALBARO Conf#: [id number] DID#: [id number] MTDD
--- NOTE | 2017-01-03 19:13 | CONS ---
Date/Time of Note Date/Time of Note DATE: 01/03/17 TIME: 19:11 Assessment/Plan Assessment/Plan Chief Complaint/Hosp Course pt admitted with forehead cellulitis with self draining abscess, seen by ID, started on IV abx, noted to have Rising Cr and renal has been consulted for MELINDA on CKD Problems: Additional Assessment/Plan 1. MELINDA on CKD Due to prerenal azotemia + ATN 2. MRSA forehead cellulitis with Abscess 3. H/o CKD III Due to HTN 4. HTN 5. Bipolar 6. DM II Plan : IV abx vancomycin , renally dose it , Cr bumped to 2.01- will give IVF NS at 75 cc/hr x 2 liter then stop Lisinopril stopped yesterday due to bump in Cr Debridement plan as per G surg Renal US c/w medical renal disease, no hydronephrosis Urine studies unremarkable, ID following will follow up Consultation Date/Type/Reason Admit Date/Time Dec 23, 2016 at 02:25 Initial Consult Date 12/28/16 Type of Consultation: NEPHROLOGY Referring Provider: JOS FOSTER MD 24 HR Interval Summary Free Text/Dictation No chemistry today to review yet, Lisinopril stopped yesterday due to bump in Cr Exam/Review of Systems Vital Signs Vitals Vital Signs Date Time Temp Pulse Resp B/P Pulse Ox O2 Delivery O2 Flow Rate FiO2 01/03/17 16:29 54 01/03/17 16:21 98.7 20 112/67 94 01/03/17 14:55 21 01/01/17 20:00 Room Air Intake and Output 01/02/17 01/02/17 01/03/17 15:00 23:00 07:00 Intake Total 1150 ml 820 ml Output Total 500 ml 800 ml Balance 650 ml 20 ml Exam Constitutional: alert Respiratory: clear to auscultation, normal air movement Cardiovascular: nl pulses, regular rate and rhythm Gastrointestinal: non-tender, soft Musculoskeletal: nl extremities to inspection, nl gait and stance Extremities: normal pulses Neurological: TIMBER TRIMMER II-XII intact, nl mental status, nl speech, nl strength Results Result Diagram: 01/02/17 0634 01/02/17 0634 Results 24 hrs Laboratory Tests Test 01/02/17 22:45 01/03/17 06:26 01/03/17 08:57 01/03/17 12:42 Bedside Glucose 94 109 153 Lab Scanned Report REFERENCE LAB Test 01/03/17 17:19 Bedside Glucose 103 Medications Medications Current Medications Morphine Sulfate (morphine) 4 mg Q4H PRN IV PAIN LEVEL 6-10; Start 12/23/16 at 05:00 Miscellaneous Information 1 ea NOTE XX ; Start 12/23/16 at 08:00 Glucose (Glutose) 15 gm Q15M PRN PO DECREASED GLUCOSE; Start 12/23/16 at 08:00 Glucose (Glutose) 22.5 gm Q15M PRN PO DECREASED GLUCOSE; Start 12/23/16 at 08: 00 Dextrose (D50w Syringe) 25 ml Q15M PRN IV DECREASED GLUCOSE; Start 12/23/16 at 08:00 Dextrose (D50w Syringe) 50 ml Q15M PRN IV DECREASED GLUCOSE; Start 12/23/16 at 08:00 Glucagon (Glucagen) 1 mg Q15M PRN IM DECREASED GLUCOSE; Start 12/23/16 at 08: 00 Glucose (Glutose) 15 gm Q15M PRN BUCCAL DECREASED GLUCOSE; Start 12/23/16 at 08:00 Acetaminophen (Tylenol Tab) 650 mg Q6H PRN PO PAIN AND OR ELEVATED TEMP Last administered on 12/24/16 17:40; Admin Dose 650 MG; Start 12/23/16 at 14:30 Acetaminophen/ Hydrocodone Bitart ([place] (5/325)) 1 tab Q6H PRN PO PAIN LEVEL 6 -10 Last administered on 12/29/16 16:52; Admin Dose 1 TAB; Start 12/24/16 at 23:00 Pantoprazole (Protonix Tab) 40 mg DAILY@06 PO Last administered on 01/03/17 06 :06; Admin Dose 40 MG; Start 12/26/16 at 06:00 Clopidogrel Bisulfate (plaVIX) 75 mg DAILY PO Last administered on 01/02/17 08 :11; Admin Dose 75 MG; Start 12/26/16 at 09:00; Status Future Hold Diagnostic Test (Pha) (Accu-Chek) 1 ea 02 XX ; Start 12/26/16 at 02:00 Digoxin (Digoxin) 0.125 mg DAILY PO Last administered on 01/03/17 09:00; Admin Dose 0.125 MG; Start 12/26/16 at 09:00 Mirtazapine (Remeron) 15 mg HS PO Last administered on 01/02/17 22:40; Admin Dose 15 MG; Start 12/26/16 at 21:00 Venlafaxine HCl (Effexor Xr) 150 mg BID PO Last administered on 01/03/17 08:56 ; Admin Dose 150 MG; Start 12/26/16 at 09:00 Silver Sulfadiazine (Thermazene 1% 25 Gm) 1 applic BID TOP Last administered on 01/03/17 08:59; Admin Dose 1 APPLIC; Start 12/26/16 at 21:00 Rifampin (Rifampin) 600 mg DAILY PO Last administered on 01/03/17 08:56; Admin Dose 600 MG; Start 12/27/16 at 14:00 Atorvastatin Calcium (Lipitor) 40 mg HS PO Last administered on 01/02/17 22:38 ; Admin Dose 40 MG; Start 12/28/16 at 21:00 Metoprolol Succinate (Toprol Xl) 12.5 mg BID PO Last administered on 01/03/17 08:59; Admin Dose 12.5 MG; Start 12/28/16 at 21:30 Magnesium Hydroxide 30 ml 30 ml HS PO Last administered on 12/31/16 21:16; Admin Dose 30 ML; Start 12/29/16 at 21:00 Daptomycin/Sodium Chloride (Cubicin/NS) 100 ml @ 200 mls/hr Q48H IVPB Last administered on 01/02/17 14:58; Admin Dose 200 MLS/HR; Start 01/02/17 at 14:00 Polyethylene Glycol (Miralax) 17 gm BID PO Last administered on 01/03/17 08:56 ; Admin Dose 17 GM; Start 01/02/17 at 21:00 MIHAI JOSEPH MD Jan 03, 2017 19:13
--- NOTE | 2017-01-03 19:37 | CONS ---
Date/Time of Note Date/Time of Note DATE: 01/03/17 TIME: 19:34 Assessment/Plan Assessment/Plan Chief Complaint/Hosp Course IMPRESSION: 1. Preoperative evaluation prior to surgical intervention for scalp abscess.- negative trop x 3. No ischemia by keiry this admit. Thus moderate CV risk, ok to proceed with debridement of scalp abscess 2. History of ischemic cardiomyopathy, last known ejection fraction approximately 40% by echo 2016. 30-35% by echo this year. No ischemia by keiry with EF underestimated. 3. Hypertension. 4. History of percutaneous transluminal coronary angioplasty and stent placement multiple times with most recent approximately 2 to 3 years prior per patient on Plavix. 5. History of transcatheter aortic valve replacement in 2016. 6. Scalp abscess. 7. Diabetes mellitus. 8. Chronic obstructive pulmonary disease. 9. Ongoing tobacco usage. 10. Anemia. 11. Renal failure. 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 Recc: -Tele -local wound care -Continue abx;'s -Continue BB/ACEI -Continue digoxiin but check digoxin level -Plavix held in anticipation of upcoming surgery Problems: Consultation Date/Type/Reason Admit Date/Time Dec 23, 2016 at 02:25 Initial Consult Date 12/27/2016 Type of Consultation: cardiology Reason for Consultation pre-op Referring Provider: JOS FOSTER MD Exam/Review of Systems Vital Signs Vitals Vital Signs Date Time Temp Pulse Resp B/P Pulse Ox O2 Delivery O2 Flow Rate FiO2 01/03/17 19:18 58 18 97 21 01/03/17 16:21 98.7 112/67 01/01/17 20:00 Room Air Intake and Output 01/02/17 01/02/17 01/03/17 15:00 23:00 07:00 Intake Total 1150 ml 820 ml Output Total 500 ml 800 ml Balance 650 ml 20 ml Exam Review of Systems: CONSTITUTIONAL: No fevers, chills. PULMONARY: No sob CARDIOVASCULAR: No chest pain/palpitations GASTROINTESTINAL: No nausea/vomiting. GENITOURINARY: No hematuria/dysuria. MUSCULOSKELETAL: No myagias/arthalgias. PSYCHIATRIC: The patient denies depression. NEUROLOGIC: No weakness Constitutional: alert, oriented Psych: no complaints Head: other (scalp covered by dressing) ENMT: mucosa pink and moist Neck: jvd (8 cm water), supple Respiratory: clear to auscultation Cardiovascular: regular rate and rhythm Gastrointestinal: non-tender, soft Musculoskeletal: muscle tone (normal) Extremities: edema (none) Neurological: other (No focal deficits) Results Result Diagram: 01/02/17 0634 01/02/17 0634 Results 24 hrs Laboratory Tests Test 01/02/17 22:45 01/03/17 06:26 01/03/17 08:57 01/03/17 12:42 Bedside Glucose 94 109 153 Lab Scanned Report REFERENCE LAB Test 01/03/17 17:19 Bedside Glucose 103 Medications Medications Current Medications Morphine Sulfate (morphine) 4 mg Q4H PRN IV PAIN LEVEL 6-10; Start 12/23/16 at 05:00 Miscellaneous Information 1 ea NOTE XX ; Start 12/23/16 at 08:00 Glucose (Glutose) 15 gm Q15M PRN PO DECREASED GLUCOSE; Start 12/23/16 at 08:00 Glucose (Glutose) 22.5 gm Q15M PRN PO DECREASED GLUCOSE; Start 12/23/16 at 08: 00 Dextrose (D50w Syringe) 25 ml Q15M PRN IV DECREASED GLUCOSE; Start 12/23/16 at 08:00 Dextrose (D50w Syringe) 50 ml Q15M PRN IV DECREASED GLUCOSE; Start 12/23/16 at 08:00 Glucagon (Glucagen) 1 mg Q15M PRN IM DECREASED GLUCOSE; Start 12/23/16 at 08: 00 Glucose (Glutose) 15 gm Q15M PRN BUCCAL DECREASED GLUCOSE; Start 12/23/16 at 08:00 Acetaminophen (Tylenol Tab) 650 mg Q6H PRN PO PAIN AND OR ELEVATED TEMP Last administered on 12/24/16 17:40; Admin Dose 650 MG; Start 12/23/16 at 14:30 Acetaminophen/ Hydrocodone Bitart ([place] (5/325)) 1 tab Q6H PRN PO PAIN LEVEL 6 -10 Last administered on 12/29/16 16:52; Admin Dose 1 TAB; Start 12/24/16 at 23:00 Pantoprazole (Protonix Tab) 40 mg DAILY@06 PO Last administered on 01/03/17 06 :06; Admin Dose 40 MG; Start 12/26/16 at 06:00 Clopidogrel Bisulfate (plaVIX) 75 mg DAILY PO Last administered on 01/02/17 08 :11; Admin Dose 75 MG; Start 12/26/16 at 09:00; Status Future Hold Diagnostic Test (Pha) (Accu-Chek) 1 ea 02 XX ; Start 12/26/16 at 02:00 Digoxin (Digoxin) 0.125 mg DAILY PO Last administered on 01/03/17 09:00; Admin Dose 0.125 MG; Start 12/26/16 at 09:00 Mirtazapine (Remeron) 15 mg HS PO Last administered on 01/02/17 22:40; Admin Dose 15 MG; Start 12/26/16 at 21:00 Venlafaxine HCl (Effexor Xr) 150 mg BID PO Last administered on 01/03/17 08:56 ; Admin Dose 150 MG; Start 12/26/16 at 09:00 Silver Sulfadiazine (Thermazene 1% 25 Gm) 1 applic BID TOP Last administered on 01/03/17 08:59; Admin Dose 1 APPLIC; Start 12/26/16 at 21:00 Rifampin (Rifampin) 600 mg DAILY PO Last administered on 01/03/17 08:56; Admin Dose 600 MG; Start 12/27/16 at 14:00 Atorvastatin Calcium (Lipitor) 40 mg HS PO Last administered on 01/02/17 22:38 ; Admin Dose 40 MG; Start 12/28/16 at 21:00 Metoprolol Succinate (Toprol Xl) 12.5 mg BID PO Last administered on 01/03/17 08:59; Admin Dose 12.5 MG; Start 12/28/16 at 21:30 Magnesium Hydroxide 30 ml 30 ml HS PO Last administered on 12/31/16 21:16; Admin Dose 30 ML; Start 12/29/16 at 21:00 Daptomycin/Sodium Chloride (Cubicin/NS) 100 ml @ 200 mls/hr Q48H IVPB Last administered on 01/02/17 14:58; Admin Dose 200 MLS/HR; Start 01/02/17 at 14:00 Polyethylene Glycol (Miralax) 17 gm BID PO Last administered on 01/03/17 08:56 ; Admin Dose 17 GM; Start 01/02/17 at 21:00 JACLYN RODRIGUEZ 8, 2017 19:36
[2017-01-03] MEDS: ATORVASTATIN 40 MG TAB PO SCH (20:12)
[2017-01-03] MEDS: MIRTAZAPINE 15 MG TAB PO SCH (20:12)
[2017-01-03] MEDS: MAGNESIUM HYDROXIDE 30ML CUP PO SCH (20:16)
[2017-01-04] VITALS (13 sets, daily range): BP systolic 100–130; BP diastolic 55–65; PULSE 56–69; RESP 18–19
[2017-01-04] MEDS: ALBUTEROL/IPRATROPIUM (NEB) 3 ML AMP HHN SCH ×4 (01:17→20:40)
[2017-01-04] MEDS: ACCU-CHEK XX SCH (01:42)
[2017-01-04] MEDS: PANTOPRAZOLE (EC) 40 MG TAB PO SCH (06:18)
[2017-01-04] MEDS: LEVOTHYROXINE 150 MCG TAB PO SCH (06:18)
[2017-01-04 07:50] LABS: ABNORMAL IP MESSAGE 1; BASOPHILS % 0.5 % (0.0-2.0); EOSINOPHILS # 0.2 10^3/ul (0.0-0.5); EOSINOPHILS % 2.4 % (0.0-7.0); HEMATOCRIT 32.3 % (42.0-52.0); LYMPHOCYTES # 1.1 10^3/ul (0.8-2.9); LYMPHOCYTES % 18.3 % (15.0-51.0); MEAN CORPUSCULAR HEMOGLOBIN 21.2 pg (29.0-33.0); MEAN CORPUSCULAR HGB CONC 27.9 g/dl (32.0-37.0); MEAN CORPUSCULAR VOLUME 76.2 fl (82.0-101.0); MEAN PLATELET VOLUME 10.7 fl (7.4-10.4); MONOCYTE # 0.5 10^3/ul (0.3-0.9); MONOCYTES % 8.3 % (0.0-11.0); NEUTROPHIL # 4.3 10^3/ul (1.6-7.5); PLATELET COUNT 283 10^3/UL (140-415); POSITIVE DIFF @See below; RED BLOOD COUNT 4.24 10^6/ul (4.70-6.10); WHITE BLOOD COUNT 6.1 10^3/ul (4.8-10.8)
[2017-01-04] MEDS: INSULIN ASPART [NOVOLOG] 3 ML PEN SC SCH ×7 (07:54→21:00)
[2017-01-04 08:09] LABS: INR 1.11; PROTIME 14.3 Sec (12.2-14.2); PT RATIO 1.1
[2017-01-04 08:10] LABS: PARTIAL THROMBOPLASTIN TIME 34.9 Sec (25.0-35.0)
[2017-01-04] MEDS: GLIMEPIRIDE 2 MG TAB PO SCH (08:11)
[2017-01-04] MEDS: POLYETHYLENE GLYCOL 17 GM PACKET PO SCH ×2 (08:12→21:00)
[2017-01-04] MEDS: VENLAFAXINE (XR) 75 MG CAP PO SCH ×2 (08:12→21:19)
[2017-01-04] MEDS: RIFAMPIN 300 MG CAP PO SCH (08:12)
[2017-01-04] MEDS: METOPROLOL (XL) 25 MG TAB PO SCH ×2 (08:13→20:56)
[2017-01-04] MEDS: DIGOXIN 0.125 MG TAB PO SCH (08:13)
[2017-01-04] MEDS: SILVER SULFADIAZINE 1% 25 GM CR TOP SCH ×2 (08:13→21:19)
[2017-01-04 08:16] LABS: CALCIUM 8.7 mg/dl (8.4-10.2); CREATININE 1.7 mg/dl (0.61-1.24); POTASSIUM 5.4 mmol/L (3.5-5.1)
--- NOTE | 2017-01-04 12:07 | PN ---
Date/Time of Note Date/Time of Note DATE: 01/04/17 TIME: 12:01 Assessment/Plan VTE Prophylaxis VTE Prophylaxis Intervention: other Lines/Catheters IV C[facility] Type ([facility] Peripheral IV Urinary Cath still in place: No Assessment/Plan Assessment/Plan - Hyperkalemia - per nephreo - Kayexalate, am BMP - Scalp cellulitis/abscess. Wound cx +MRSA. Continue Daptomycin. Dr. Oliva is following in infection disease consultation. - Dr. Saldivar is following in general surgery. - for I & D tomorrow. - Ischemic cardiomyopathy with ejection fraction of 30% per last echo, continue Coreg per cardiology recs. Dr. Choudhury is following in cardiology consultation. - Bradycardia. Status post Lexiscan with no ischemia, continue telemetry monitoring. - Chronic kidney disease stage III. Monitor renal function and avoid nephrotoxic drugs. - Coronary artery disease with history of stent placement. - Chronic obstructive pulmonary disease. - Diabetes mellitus, hemoglobin A1c is 6.6, continue Amaryl and NovoLog per sliding scale. 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 Further recommendations based on clinical course. Plan of care discussed with Dr. Giron Subjective 24 Hr Interval Summary Free Text/Dictation - afebrile - Scalp cellulitis/abscess. Wound cx +MRSA- ID, surgery follows- for I & D tomorrow. dw staff. Respiratory: no complaints Cardiovascular: no complaints Genitourinary: no complaints Musculoskeletal: no complaints Skin: other (scalp abscess) Exam/Review of Systems Vital Signs Vitals Vital Signs Date Time Temp Pulse Resp B/P Pulse Ox O2 Delivery O2 Flow Rate FiO2 01/04/17 11:47 98.4 57 18 120/59 96 01/04/17 08:04 21 01/01/17 20:00 Room Air Intake and Output 01/03/17 01/03/17 01/04/17 15:00 23:00 07:00 Intake Total 600 ml 620 ml Output Total 600 ml 560 ml Balance 0 ml 60 ml Exam Constitutional: alert, oriented, well developed Head: other (scalp abccess- DDI) Respiratory: clear to auscultation, normal air movement Cardiovascular: nl pulses, other (s1s2) Gastrointestinal: non-tender, soft Musculoskeletal: nl extremities to inspection Extremities: normal pulses Neurological: nl mental status, nl speech Results Result Diagram: 01/04/17 0643 01/04/17 0643 Results 24 hrs Laboratory Tests Test 01/03/17 12:42 01/03/17 17:19 01/03/17 20:00 01/03/17 20:19 Bedside Glucose 153 103 70 Digoxin Level 0.8 L Test 01/04/17 06:43 01/04/17 07:49 White Blood Count 6.1 # Red Blood Count 4.24 L Hemoglobin 9.0 L Hematocrit 32.3 L Mean Corpuscular Volume 76.2 L Mean Corpuscular Hemoglobin 21.2 L Mean Corpuscular Hemoglobin Concent 27.9 L Red Cell Distribution Width 20.0 H Platelet Count 283 Mean Platelet Volume 10.7 H Neutrophils % 70.0 Lymphocytes % 18.3 Monocytes % 8.3 Eosinophils % 2.4 Basophils % 0.5 Nucleated Red Blood Cells % 0.0 Neutrophils # 4.3 Lymphocytes # 1.1 Monocytes # 0.5 Eosinophils # 0.2 Basophils # 0.0 Nucleated Red Blood Cells # 0.0 Prothrombin Time 14.3 H Prothrombin Time Ratio 1.1 INR International Normalized Ratio 1.11 Activated Partial Thromboplast Time 34.9 Sodium Level 141 Potassium Level 5.4 H Chloride Level 106 Carbon Dioxide Level 26 Anion Gap 14 Blood Urea Nitrogen 27 H Creatinine 1.70 H Glucose Level 82 Calcium Level 8.7 Creatine Kinase 52 Bedside Glucose 106 Medications Medications Current Medications Morphine Sulfate (morphine) 4 mg Q4H PRN IV PAIN LEVEL 6-10; Start 12/23/16 at 05:00 Miscellaneous Information 1 ea NOTE XX ; Start 12/23/16 at 08:00 Glucose (Glutose) 15 gm Q15M PRN PO DECREASED GLUCOSE; Start 12/23/16 at 08:00 Glucose (Glutose) 22.5 gm Q15M PRN PO DECREASED GLUCOSE; Start 12/23/16 at 08: 00 Dextrose (D50w Syringe) 25 ml Q15M PRN IV DECREASED GLUCOSE; Start 12/23/16 at 08:00 Dextrose (D50w Syringe) 50 ml Q15M PRN IV DECREASED GLUCOSE; Start 12/23/16 at 08:00 Glucagon (Glucagen) 1 mg Q15M PRN IM DECREASED GLUCOSE; Start 12/23/16 at 08: 00 Glucose (Glutose) 15 gm Q15M PRN BUCCAL DECREASED GLUCOSE; Start 12/23/16 at 08:00 Acetaminophen (Tylenol Tab) 650 mg Q6H PRN PO PAIN AND OR ELEVATED TEMP Last administered on 12/24/16 17:40; Admin Dose 650 MG; Start 12/23/16 at 14:30 Acetaminophen/ Hydrocodone Bitart ([place] (5/325)) 1 tab Q6H PRN PO PAIN LEVEL 6 -10 Last administered on 12/29/16 16:52; Admin Dose 1 TAB; Start 12/24/16 at 23:00 Pantoprazole (Protonix Tab) 40 mg DAILY@06 PO Last administered on 01/04/17 06 :18; Admin Dose 40 MG; Start 12/26/16 at 06:00 Clopidogrel Bisulfate (plaVIX) 75 mg DAILY PO Last administered on 01/02/17 08 :11; Admin Dose 75 MG; Start 12/26/16 at 09:00; Status Future Hold Diagnostic Test (Pha) (Accu-Chek) 1 ea 02 XX ; Start 12/26/16 at 02:00 Digoxin (Digoxin) 0.125 mg DAILY PO Last administered on 01/04/17 08:13; Admin Dose 0.125 MG; Start 12/26/16 at 09:00 Mirtazapine (Remeron) 15 mg HS PO Last administered on 01/03/17 20:12; Admin Dose 15 MG; Start 12/26/16 at 21:00 Venlafaxine HCl (Effexor Xr) 150 mg BID PO Last administered on 01/04/17 08:12 ; Admin Dose 150 MG; Start 12/26/16 at 09:00 Silver Sulfadiazine (Thermazene 1% 25 Gm) 1 applic BID TOP Last administered on 01/04/17 08:13; Admin Dose 1 APPLIC; Start 12/26/16 at 21:00 Rifampin (Rifampin) 600 mg DAILY PO Last administered on 01/04/17 08:12; Admin Dose 600 MG; Start 12/27/16 at 14:00 Atorvastatin Calcium (Lipitor) 40 mg HS PO Last administered on 01/03/17 20:12 ; Admin Dose 40 MG; Start 12/28/16 at 21:00 Metoprolol Succinate (Toprol Xl) 12.5 mg BID PO Last administered on 01/04/17 08:13; Admin Dose 12.5 MG; Start 12/28/16 at 21:30 Magnesium Hydroxide 30 ml 30 ml HS PO Last administered on 12/31/16 21:16; Admin Dose 30 ML; Start 12/29/16 at 21:00 Daptomycin/Sodium Chloride (Cubicin/NS) 100 ml @ 200 mls/hr Q48H IVPB Last administered on 01/02/17 14:58; Admin Dose 200 MLS/HR; Start 01/02/17 at 14:00 Polyethylene Glycol (Miralax) 17 gm BID PO Last administered on 01/04/17 08:12 ; Admin Dose 17 GM; Start 01/02/17 at 21:00 SOFÍA CHU Jan 04, 2017 12:07
[2017-01-04] MEDS ORDERED: NA POLYST SULFON 15 GM/60 ML BTL PO ONE (12:30)
--- NOTE | 2017-01-04 14:17 | CONS ---
Date/Time of Note Date/Time of Note DATE: 01/04/17 TIME: 14:16 Assessment/Plan Assessment/Plan Chief Complaint/Hosp Course SUBJECTIVE: No events overnight, awake, denies pain, looks comfortable, no fevers. MICROBIOLOGY: Forehead wound grew MRSA. ANTIMICROBIALS: Rifampin, IV Daptomycin PHYSICAL EXAMINATION: GENERAL: Well-developed, elderly man in no distress. HEENT: Head atraumatic, normocephalic. Sclerae anicteric. Buccal mucosa dry. NECK: Supple. CHEST: Rise symmetrical. Breath sounds diminished to bases. HEART: S1, S2. ABDOMEN: Soft, bowel tones present. EXTREMITIES: Without cyanosis. SKIN: Dry, pale. There is erythema on the forehead. ASSESSMENT: 1. Methicillin-resistant Staphylococcus aureus cellulitis of the forehead with self- draining abscess. 2. Hypertension. 3. Chronic obstructive pulmonary disease. 4. Ischemic cardiomyopathy. 5. Chronic kidney disease stage III. PLAN: The patient remains stable. Continue abx, surgical rec-s DW staff Problems: Consultation Date/Type/Reason Admit Date/Time Dec 23, 2016 at 02:25 Type of Consultation: ID Referring Provider: JOS FOSTER MD Exam/Review of Systems Vital Signs Vitals Vital Signs Date Time Temp Pulse Resp B/P Pulse Ox O2 Delivery O2 Flow Rate FiO2 01/04/17 12:00 56 01/04/17 11:47 98.4 18 120/59 96 01/04/17 08:04 21 01/01/17 20:00 Room Air Intake and Output 01/03/17 01/03/17 01/04/17 15:00 23:00 07:00 Intake Total 600 ml 620 ml Output Total 600 ml 560 ml Balance 0 ml 60 ml Results Result Diagram: 01/04/17 0643 01/04/17 0643 Results 24 hrs Laboratory Tests Test 01/03/17 17:19 01/03/17 20:00 01/03/17 20:19 01/04/17 06:43 Bedside Glucose 103 70 Digoxin Level 0.8 L White Blood Count 6.1 # Red Blood Count 4.24 L Hemoglobin 9.0 L Hematocrit 32.3 L Mean Corpuscular Volume 76.2 L Mean Corpuscular Hemoglobin 21.2 L Mean Corpuscular Hemoglobin Concent 27.9 L Red Cell Distribution Width 20.0 H Platelet Count 283 Mean Platelet Volume 10.7 H Neutrophils % 70.0 Lymphocytes % 18.3 Monocytes % 8.3 Eosinophils % 2.4 Basophils % 0.5 Nucleated Red Blood Cells % 0.0 Neutrophils # 4.3 Lymphocytes # 1.1 Monocytes # 0.5 Eosinophils # 0.2 Basophils # 0.0 Nucleated Red Blood Cells # 0.0 Prothrombin Time 14.3 H Prothrombin Time Ratio 1.1 INR International Normalized Ratio 1.11 Activated Partial Thromboplast Time 34.9 Sodium Level 141 Potassium Level 5.4 H Chloride Level 106 Carbon Dioxide Level 26 Anion Gap 14 Blood Urea Nitrogen 27 H Creatinine 1.70 H Glucose Level 82 Calcium Level 8.7 Creatine Kinase 52 Test 01/04/17 07:49 01/04/17 12:26 Bedside Glucose 106 145 Medications Medications Current Medications Morphine Sulfate (morphine) 4 mg Q4H PRN IV PAIN LEVEL 6-10; Start 12/23/16 at 05:00 Miscellaneous Information 1 ea NOTE XX ; Start 12/23/16 at 08:00 Glucose (Glutose) 15 gm Q15M PRN PO DECREASED GLUCOSE; Start 12/23/16 at 08:00 Glucose (Glutose) 22.5 gm Q15M PRN PO DECREASED GLUCOSE; Start 12/23/16 at 08: 00 Dextrose (D50w Syringe) 25 ml Q15M PRN IV DECREASED GLUCOSE; Start 12/23/16 at 08:00 Dextrose (D50w Syringe) 50 ml Q15M PRN IV DECREASED GLUCOSE; Start 12/23/16 at 08:00 Glucagon (Glucagen) 1 mg Q15M PRN IM DECREASED GLUCOSE; Start 12/23/16 at 08: 00 Glucose (Glutose) 15 gm Q15M PRN BUCCAL DECREASED GLUCOSE; Start 12/23/16 at 08:00 Acetaminophen (Tylenol Tab) 650 mg Q6H PRN PO PAIN AND OR ELEVATED TEMP Last administered on 12/24/16 17:40; Admin Dose 650 MG; Start 12/23/16 at 14:30 Acetaminophen/ Hydrocodone Bitart ([place] (5/325)) 1 tab Q6H PRN PO PAIN LEVEL 6 -10 Last administered on 12/29/16 16:52; Admin Dose 1 TAB; Start 12/24/16 at 23:00 Pantoprazole (Protonix Tab) 40 mg DAILY@06 PO Last administered on 01/04/17 06 :18; Admin Dose 40 MG; Start 12/26/16 at 06:00 Clopidogrel Bisulfate (plaVIX) 75 mg DAILY PO Last administered on 01/02/17 08 :11; Admin Dose 75 MG; Start 12/26/16 at 09:00; Status Future Hold Diagnostic Test (Pha) (Accu-Chek) 1 ea 02 XX ; Start 12/26/16 at 02:00 Digoxin (Digoxin) 0.125 mg DAILY PO Last administered on 01/04/17 08:13; Admin Dose 0.125 MG; Start 12/26/16 at 09:00 Mirtazapine (Remeron) 15 mg HS PO Last administered on 01/03/17 20:12; Admin Dose 15 MG; Start 12/26/16 at 21:00 Venlafaxine HCl (Effexor Xr) 150 mg BID PO Last administered on 01/04/17 08:12 ; Admin Dose 150 MG; Start 12/26/16 at 09:00 Silver Sulfadiazine (Thermazene 1% 25 Gm) 1 applic BID TOP Last administered on 01/04/17 08:13; Admin Dose 1 APPLIC; Start 12/26/16 at 21:00 Rifampin (Rifampin) 600 mg DAILY PO Last administered on 01/04/17 08:12; Admin Dose 600 MG; Start 12/27/16 at 14:00 Atorvastatin Calcium (Lipitor) 40 mg HS PO Last administered on 01/03/17 20:12 ; Admin Dose 40 MG; Start 12/28/16 at 21:00 Metoprolol Succinate (Toprol Xl) 12.5 mg BID PO Last administered on 01/04/17 08:13; Admin Dose 12.5 MG; Start 12/28/16 at 21:30 Magnesium Hydroxide 30 ml 30 ml HS PO Last administered on 12/31/16 21:16; Admin Dose 30 ML; Start 12/29/16 at 21:00 Daptomycin/Sodium Chloride (Cubicin/NS) 100 ml @ 200 mls/hr Q48H IVPB Last administered on 01/02/17 14:58; Admin Dose 200 MLS/HR; Start 01/02/17 at 14:00 Polyethylene Glycol (Miralax) 17 gm BID PO Last administered on 01/04/17 08:12 ; Admin Dose 17 GM; Start 01/02/17 at 21:00 ILENE JUDGE NP Jan 04, 2017 14:17
[2017-01-04] MEDS: DAPTOMYCIN 385 MG in SOD CHLORIDE 0.9% 100 ML IVPB SCH (14:52)
--- NOTE | 2017-01-04 15:47 | CONS ---
Date/Time of Note Date/Time of Note DATE: 01/04/17 TIME: 15:44 Assessment/Plan Assessment/Plan Chief Complaint/Hosp Course pt admitted with forehead cellulitis with self draining abscess, seen by ID, started on IV abx, noted to have Rising Cr and renal has been consulted for MELINDA on CKD Problems: Additional Assessment/Plan 1. MELINDA on CKD Due to prerenal azotemia + ATN 2. MRSA forehead cellulitis with Abscess 3. H/o CKD III Due to HTN 4. HTN 5. Bipolar 6. DM II Plan : IV abx vancomycin , renally dose it , Cr improved from 2.01 to 1.7 with 1liter iVF Hydation, BP stable Lisinopril stopped due to bump in Cr - BP controlled, will resume it at the time of discharge Debridement plan as per G surg Renal US c/w medical renal disease, no hydronephrosis Urine studies unremarkable, ID following will follow up Consultation Date/Type/Reason Admit Date/Time Dec 23, 2016 at 02:25 Initial Consult Date 12/28/16 Type of Consultation: NEPHROLOGY Referring Provider: JOS FOSTER MD 24 HR Interval Summary Free Text/Dictation s/p 1liter NS, Cr improved to 1.7 from 2.01 Exam/Review of Systems Vital Signs Vitals Vital Signs Date Time Temp Pulse Resp B/P Pulse Ox O2 Delivery O2 Flow Rate FiO2 01/04/17 15:33 98.6 64 18 127/60 95 01/04/17 14:19 21 01/01/17 20:00 Room Air Intake and Output 01/03/17 01/03/17 01/04/17 15:00 23:00 07:00 Intake Total 600 ml 620 ml Output Total 600 ml 560 ml Balance 0 ml 60 ml Exam Constitutional: alert Respiratory: clear to auscultation, normal air movement Cardiovascular: nl pulses, regular rate and rhythm Gastrointestinal: non-tender, soft Musculoskeletal: nl extremities to inspection, nl gait and stance Extremities: normal pulses 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, nl mental status, nl speech, nl strength Results Result Diagram: 01/04/17 0643 01/04/17 0643 Results 24 hrs Laboratory Tests Test 01/03/17 17:19 01/03/17 20:00 01/03/17 20:19 01/04/17 06:43 Bedside Glucose 103 70 Digoxin Level 0.8 L White Blood Count 6.1 # Red Blood Count 4.24 L Hemoglobin 9.0 L Hematocrit 32.3 L Mean Corpuscular Volume 76.2 L Mean Corpuscular Hemoglobin 21.2 L Mean Corpuscular Hemoglobin Concent 27.9 L Red Cell Distribution Width 20.0 H Platelet Count 283 Mean Platelet Volume 10.7 H Neutrophils % 70.0 Lymphocytes % 18.3 Monocytes % 8.3 Eosinophils % 2.4 Basophils % 0.5 Nucleated Red Blood Cells % 0.0 Neutrophils # 4.3 Lymphocytes # 1.1 Monocytes # 0.5 Eosinophils # 0.2 Basophils # 0.0 Nucleated Red Blood Cells # 0.0 Prothrombin Time 14.3 H Prothrombin Time Ratio 1.1 INR International Normalized Ratio 1.11 Activated Partial Thromboplast Time 34.9 Sodium Level 141 Potassium Level 5.4 H Chloride Level 106 Carbon Dioxide Level 26 Anion Gap 14 Blood Urea Nitrogen 27 H Creatinine 1.70 H Glucose Level 82 Calcium Level 8.7 Creatine Kinase 52 Test 01/04/17 07:49 01/04/17 12:26 Bedside Glucose 106 145 Medications Medications Current Medications Morphine Sulfate (morphine) 4 mg Q4H PRN IV PAIN LEVEL 6-10; Start 12/23/16 at 05:00 Miscellaneous Information 1 ea NOTE XX ; Start 12/23/16 at 08:00 Glucose (Glutose) 15 gm Q15M PRN PO DECREASED GLUCOSE; Start 12/23/16 at 08:00 Glucose (Glutose) 22.5 gm Q15M PRN PO DECREASED GLUCOSE; Start 12/23/16 at 08: 00 Dextrose (D50w Syringe) 25 ml Q15M PRN IV DECREASED GLUCOSE; Start 12/23/16 at 08:00 Dextrose (D50w Syringe) 50 ml Q15M PRN IV DECREASED GLUCOSE; Start 12/23/16 at 08:00 Glucagon (Glucagen) 1 mg Q15M PRN IM DECREASED GLUCOSE; Start 12/23/16 at 08: 00 Glucose (Glutose) 15 gm Q15M PRN BUCCAL DECREASED GLUCOSE; Start 12/23/16 at 08:00 Acetaminophen (Tylenol Tab) 650 mg Q6H PRN PO PAIN AND OR ELEVATED TEMP Last administered on 12/24/16t 17:40; Admin Dose 650 MG; Start 12/23/16 at 14:30 Acetaminophen/ Hydrocodone Bitart ([place] (5/325)) 1 tab Q6H PRN PO PAIN LEVEL 6 -10 Last administered on 12/29/16 16:52; Admin Dose 1 TAB; Start 12/24/16 at 23:00 Pantoprazole (Protonix Tab) 40 mg DAILY@06 PO Last administered on 01/04/17 06 :18; Admin Dose 40 MG; Start 12/26/16 at 06:00 Clopidogrel Bisulfate (plaVIX) 75 mg DAILY PO Last administered on 01/02/17 08 :11; Admin Dose 75 MG; Start 12/26/16 at 09:00; Status Future Hold Diagnostic Test (Pha) (Accu-Chek) 1 ea 02 XX ; Start 12/26/16 at 02:00 Digoxin (Digoxin) 0.125 mg DAILY PO Last administered on 01/04/17 08:13; Admin Dose 0.125 MG; Start 12/26/16 at 09:00 Mirtazapine (Remeron) 15 mg HS PO Last administered on 01/03/17 20:12; Admin Dose 15 MG; Start 12/26/16 at 21:00 Venlafaxine HCl (Effexor Xr) 150 mg BID PO Last administered on 01/04/17 08:12 ; Admin Dose 150 MG; Start 12/26/16 at 09:00 Silver Sulfadiazine (Thermazene 1% 25 Gm) 1 applic BID TOP Last administered on 01/04/17 08:13; Admin Dose 1 APPLIC; Start 12/26/16 at 21:00 Rifampin (Rifampin) 600 mg DAILY PO Last administered on 01/04/17 08:12; Admin Dose 600 MG; Start 12/27/16 at 14:00 Atorvastatin Calcium (Lipitor) 40 mg HS PO Last administered on 01/03/17 20:12 ; Admin Dose 40 MG; Start 12/28/16 at 21:00 Metoprolol Succinate (Toprol Xl) 12.5 mg BID PO Last administered on 01/04/17 08:13; Admin Dose 12.5 MG; Start 12/28/16 at 21:30 Magnesium Hydroxide 30 ml 30 ml HS PO Last administered on 12/31/16 21:16; Admin Dose 30 ML; Start 12/29/16 at 21:00 Daptomycin/Sodium Chloride (Cubicin/NS) 100 ml @ 200 mls/hr Q48H IVPB Last administered on 01/04/17 14:52; Admin Dose 200 MLS/HR; Start 01/02/17 at 14:00 Polyethylene Glycol (Miralax) 17 gm BID PO Last administered on 01/04/17 08:12 ; Admin Dose 17 GM; Start 01/02/17 at 21:00 MIHAI JOSEPH MD Jan 04, 2017 15:47
--- NOTE | 2017-01-04 16:03 | PN ---
DATE: 01/04/2017 SUBJECTIVE: No new events overnight. OBJECTIVE: GENERAL: Awake and alert, in no acute distress. VITAL SIGNS: Temperature 98.4, heart rate is 56 and regular, respirations 18, blood pressure 120/59, saturation 96% on room air. LABS: Potassium is 5.4, slightly elevated, BUN 27, creatinine 1.70, elevated. WBC 6100 with 70% neutrophils, hemoglobin 9, hematocrit 32.3. PT is 14.3, INR is 1.11, PTT is 34.9, normal. Overall is normal range. HEART: Regular. LUNGS: Clear. ABDOMEN: Soft. WOUND: Same. Has been draining some grayish yellowish thick material. ASSESSMENT: A 76-year-old gentleman who has presented to emergency room because of swelling and pain and redness and some discharge from the right forehead, was found to have methicillin resistant Staphylococcus aureus cellulitis and abscess of the right forehead. Started on antibiotic, vancomycin. Later on, because BUN and creatinine increased, we changed it to daptomycin. and eventually the manager fleet cleared the patient for operation. The plan is to proceed with debridement in the operating room to remove all the necrotic tissue. The patient has some element of renal failure. His last creatinine today is 1.70. Nephrology is on board. Cardiology has cleared the patient. PLAN: Tomorrow, Sunday, I am going to do debridement, therefore patient is going to be n.p.o. after midnight. Dictated By: ETHEL PHAN/ALBARO Conf#: [id number] DID#: [id number] YANI
--- NOTE | 2017-01-04 20:22 | CONS ---
Date/Time of Note Date/Time of Note DATE: 01/04/17 TIME: 20:20 Assessment/Plan Assessment/Plan Chief Complaint/Hosp Course IMPRESSION: 1. Preoperative evaluation prior to surgical intervention for scalp abscess.- negative trop x 3. No ischemia by keiry this admit. Thus moderate CV risk, ok to proceed with debridement of scalp abscess 2. History of ischemic cardiomyopathy, last known ejection fraction approximately 40% by echo 2016. 30-35% by echo this year. No ischemia by keiry with EF underestimated. 3. Hypertension. 4. History of percutaneous transluminal coronary angioplasty and stent placement multiple times with most recent approximately 2 to 3 years prior per patient on Plavix. 5. History of transcatheter aortic valve replacement in 2016. 6. Scalp abscess. 7. Diabetes mellitus. 8. Chronic obstructive pulmonary disease. 9. Ongoing tobacco usage. 10. Anemia. 11. Renal failure. 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 Recc: -Tele -local wound care -Continue abx;'s -Continue BB/ACEI -Continue digoxiin but check digoxin level -Plavix held in anticipation of upcoming surgery pnding tomorrow Problems: Consultation Date/Type/Reason Admit Date/Time Dec 23, 2016 at 02:25 Initial Consult Date 12/27/2016 Type of Consultation: cardioloogy Reason for Consultation pre-op Referring Provider: JOS FOSTER MD Exam/Review of Systems Vital Signs Vitals Vital Signs Date Time Temp Pulse Resp B/P Pulse Ox O2 Delivery O2 Flow Rate FiO2 01/04/17 20:06 63 01/04/17 19:59 98.3 18 108/55 93 01/04/17 14:19 21 01/01/17 20:00 Room Air Intake and Output 01/03/17 01/03/17 01/04/17 15:00 23:00 07:00 Intake Total 600 ml 620 ml Output Total 600 ml 560 ml Balance 0 ml 60 ml Exam Review of Systems: CONSTITUTIONAL: No fevers, chills. PULMONARY: No sob CARDIOVASCULAR: No chest pain/palpitations GASTROINTESTINAL: No nausea/vomiting. GENITOURINARY: No hematuria/dysuria. MUSCULOSKELETAL: No myagias/arthalgias. PSYCHIATRIC: The patient denies depression. NEUROLOGIC: No weakness Constitutional: alert Psych: no complaints Head: normocephalic ENMT: mucosa pink and moist Neck: jvd (9 cm water), supple Respiratory: diminished breath sounds Cardiovascular: regular rate and rhythm Gastrointestinal: non-tender, soft Musculoskeletal: muscle tone (normal) Extremities: edema (none) Neurological: other (No focal defiicts) Results Result Diagram: 01/04/17 0643 01/04/17 0643 Results 24 hrs Laboratory Tests Test 01/04/17 06:43 01/04/17 07:49 01/04/17 12:26 01/04/17 17:39 White Blood Count 6.1 # Red Blood Count 4.24 L Hemoglobin 9.0 L Hematocrit 32.3 L Mean Corpuscular Volume 76.2 L Mean Corpuscular Hemoglobin 21.2 L Mean Corpuscular Hemoglobin Concent 27.9 L Red Cell Distribution Width 20.0 H Platelet Count 283 Mean Platelet Volume 10.7 H Neutrophils % 70.0 Lymphocytes % 18.3 Monocytes % 8.3 Eosinophils % 2.4 Basophils % 0.5 Nucleated Red Blood Cells % 0.0 Neutrophils # 4.3 Lymphocytes # 1.1 Monocytes # 0.5 Eosinophils # 0.2 Basophils # 0.0 Nucleated Red Blood Cells # 0.0 Prothrombin Time 14.3 H Prothrombin Time Ratio 1.1 INR International Normalized Ratio 1.11 Activated Partial Thromboplast Time 34.9 Sodium Level 141 Potassium Level 5.4 H Chloride Level 106 Carbon Dioxide Level 26 Anion Gap 14 Blood Urea Nitrogen 27 H Creatinine 1.70 H Glucose Level 82 Calcium Level 8.7 Creatine Kinase 52 Bedside Glucose 106 145 105 Medications Medications Current Medications Morphine Sulfate (morphine) 4 mg Q4H PRN IV PAIN LEVEL 6-10; Start 12/23/16 at 05:00 Miscellaneous Information 1 ea NOTE XX ; Start 12/23/16 at 08:00 Glucose (Glutose) 15 gm Q15M PRN PO DECREASED GLUCOSE; Start 12/23/16 at 08:00 Glucose (Glutose) 22.5 gm Q15M PRN PO DECREASED GLUCOSE; Start 12/23/16 at 08: 00 Dextrose (D50w Syringe) 25 ml Q15M PRN IV DECREASED GLUCOSE; Start 12/23/16 at 08:00 Dextrose (D50w Syringe) 50 ml Q15M PRN IV DECREASED GLUCOSE; Start 12/23/16 at 08:00 Glucagon (Glucagen) 1 mg Q15M PRN IM DECREASED GLUCOSE; Start 12/23/16 at 08: 00 Glucose (Glutose) 15 gm Q15M PRN BUCCAL DECREASED GLUCOSE; Start 12/23/16 at 08:00 Acetaminophen (Tylenol Tab) 650 mg Q6H PRN PO PAIN AND OR ELEVATED TEMP Last administered on 12/24/16 17:40; Admin Dose 650 MG; Start 12/23/16 at 14:30 Acetaminophen/ Hydrocodone Bitart ([place] (5/325)) 1 tab Q6H PRN PO PAIN LEVEL 6 -10 Last administered on 12/29/16 16:52; Admin Dose 1 TAB; Start 12/24/16 at 23:00 Pantoprazole (Protonix Tab) 40 mg DAILY@06 PO Last administered on 01/04/17 06 :18; Admin Dose 40 MG; Start 12/26/16 at 06:00 Clopidogrel Bisulfate (plaVIX) 75 mg DAILY PO Last administered on 01/02/17 08 :11; Admin Dose 75 MG; Start 12/26/16 at 09:00; Status Future Hold Diagnostic Test (Pha) (Accu-Chek) 1 ea 02 XX ; Start 12/26/16 at 02:00 Digoxin (Digoxin) 0.125 mg DAILY PO Last administered on 01/04/17 08:13; Admin Dose 0.125 MG; Start 12/26/16 at 09:00 Mirtazapine (Remeron) 15 mg HS PO Last administered on 01/03/17 20:12; Admin Dose 15 MG; Start 12/26/16 at 21:00 Venlafaxine HCl (Effexor Xr) 150 mg BID PO Last administered on 01/04/17 08:12 ; Admin Dose 150 MG; Start 12/26/16 at 09:00 Silver Sulfadiazine (Thermazene 1% 25 Gm) 1 applic BID TOP Last administered on 01/04/17 08:13; Admin Dose 1 APPLIC; Start 12/26/16 at 21:00 Rifampin (Rifampin) 600 mg DAILY PO Last administered on 01/04/17 08:12; Admin Dose 600 MG; Start 12/27/16 at 14:00 Atorvastatin Calcium (Lipitor) 40 mg HS PO Last administered on 01/03/17 20:12 ; Admin Dose 40 MG; Start 12/28/16 at 21:00 Metoprolol Succinate (Toprol Xl) 12.5 mg BID PO Last administered on 01/04/17 08:13; Admin Dose 12.5 MG; Start 12/28/16 at 21:30 Magnesium Hydroxide 30 ml 30 ml HS PO Last administered on 12/31/16 21:16; Admin Dose 30 ML; Start 12/29/16 at 21:00 Daptomycin/Sodium Chloride (Cubicin/NS) 100 ml @ 200 mls/hr Q48H IVPB Last administered on 01/04/17 14:52; Admin Dose 200 MLS/HR; Start 01/02/17 at 14:00 Polyethylene Glycol (Miralax) 17 gm BID PO Last administered on 01/04/17 08:12 ; Admin Dose 17 GM; Start 01/02/17 at 21:00 JACLYN RODRIGUEZ Jan 04, 2017 20:22
[2017-01-04] MEDS: ATORVASTATIN 40 MG TAB PO SCH (20:57)
[2017-01-04] MEDS: MIRTAZAPINE 15 MG TAB PO SCH (20:57)
[2017-01-04] MEDS: MAGNESIUM HYDROXIDE 30ML CUP PO SCH (21:00)
[2017-01-05] VITALS (19 sets, daily range): BP systolic 89–136; BP diastolic 45–91; PULSE 58–77; RESP 16–19
[2017-01-05] MEDS: ALBUTEROL/IPRATROPIUM (NEB) 3 ML AMP HHN SCH ×4 (01:35→19:45)
[2017-01-05] MEDS: ACCU-CHEK XX SCH (02:00)
[2017-01-05] MEDS: PANTOPRAZOLE (EC) 40 MG TAB PO SCH (06:00)
[2017-01-05] MEDS: LEVOTHYROXINE 150 MCG TAB PO SCH (06:28)
[2017-01-05] MEDS ORDERED: ONDANSETRON 4 MG INJ ONE (07:00)
[2017-01-05] MEDS ORDERED: DEXAMETHASONE 4 MG/ML 1 ML INJ ONE (07:00)
[2017-01-05] MEDS ORDERED: SUGAMMADEX SODIUM 200 MG/2 ML VIAL IV ONE (07:00)
[2017-01-05 07:28] LABS: ABNORMAL IP MESSAGE 1; BASOPHILS % 0.5 % (0.0-2.0); EOSINOPHILS # 0.2 10^3/ul (0.0-0.5); EOSINOPHILS % 2.6 % (0.0-7.0); HEMATOCRIT 30.8 % (42.0-52.0); HEMOGLOBIN 8.5 g/dl (14.0-18.0); LYMPHOCYTES # 1.2 10^3/ul (0.8-2.9); LYMPHOCYTES % 20.1 % (15.0-51.0); MEAN CORPUSCULAR HEMOGLOBIN 20.9 pg (29.0-33.0); MEAN CORPUSCULAR HGB CONC 27.6 g/dl (32.0-37.0); MEAN CORPUSCULAR VOLUME 75.9 fl (82.0-101.0); MEAN PLATELET VOLUME 10.3 fl (7.4-10.4); MONOCYTE # 0.5 10^3/ul (0.3-0.9); MONOCYTES % 8.7 % (0.0-11.0); NEUTROPHIL # 4.2 10^3/ul (1.6-7.5); NEUTROPHILS % 67.6 % (39.0-77.0); PLATELET COUNT 262 10^3/UL (140-415); POSITIVE DIFF @See below; RED BLOOD COUNT 4.06 10^6/ul (4.70-6.10); RED CELL DISTRIBUTION WIDTH 19.9 % (11.5-14.5); WHITE BLOOD COUNT 6.2 10^3/ul (4.8-10.8)
[2017-01-05 07:51] LABS: CALCIUM 8.7 mg/dl (8.4-10.2); CREATININE 1.75 mg/dl (0.61-1.24)
[2017-01-05] MEDS: INSULIN ASPART [NOVOLOG] 3 ML PEN SC SCH ×7 (08:00→21:00)
[2017-01-05] MEDS: GLIMEPIRIDE 2 MG TAB PO SCH (08:53)
[2017-01-05] MEDS: RIFAMPIN 300 MG CAP PO SCH (08:53)
[2017-01-05] MEDS: DIGOXIN 0.125 MG TAB PO SCH (08:53)
[2017-01-05] MEDS: METOPROLOL (XL) 25 MG TAB PO SCH ×2 (08:54→20:59)
[2017-01-05] MEDS: POLYETHYLENE GLYCOL 17 GM PACKET PO SCH ×2 (08:54→20:58)
[2017-01-05] MEDS: VENLAFAXINE (XR) 75 MG CAP PO SCH ×2 (08:58→23:00)
[2017-01-05] MEDS: SILVER SULFADIAZINE 1% 25 GM CR TOP SCH ×2 (08:58→21:00)
--- NOTE | 2017-01-05 10:24 | HPN ---
Date/Time of Note Date/Time of Note DATE: 01/05/17 TIME: 10:23 Interval H&P Admission Note Pt. seen H&P reviewed: No system changes ETHEL WRIGHT MD Jan 05, 2017 10:24
[2017-01-05] MEDS ORDERED: FENTAnyl 50 MCG/ML VIAL ONE ×2 (10:43→11:03)
[2017-01-05] MEDS ORDERED: BUPIVACAINE 0.5% (SDV) 30 ML INJ ONE (10:50)
[2017-01-05] MEDS ORDERED: LIDOCAINE 2%/EPI 30 ML INJ ONE (10:50)
[2017-01-05] MEDS ORDERED: BUPIVACAINE 0.25% (MPF) 30 ML INJ ONE (10:51)
[2017-01-05] MEDS ORDERED: SILVER SULFADIAZINE 1% 50 GM CR TOP ONE (11:29)
[2017-01-05] MEDS ORDERED: ONDANSETRON 4 MG INJ IV PRN (11:30)
[2017-01-05] MEDS ORDERED: EPHEDrine SULFATE 50 MG/5 ML SYG IV PRN (11:30)
[2017-01-05] MEDS ORDERED: LABETALOL HCL 20MG INJ IV PRN (11:30)
[2017-01-05] MEDS ORDERED: FENTAnyl 50 MCG/ML VIAL IV PRN ×3 (11:30)
[2017-01-05] MEDS ORDERED: HYDROmorphONE (0.2 MG/ML) 10ML SYG IV PRN ×2 (11:30)
--- NOTE | 2017-01-05 12:01 | SIPON ---
Date/Time of Note Date/Time of Note DATE: 01/05/17 TIME: 11:52 Operative Report Preoperative Diagnosis Cellulitis and abscess in his right forehead including deep tissues the etiology : MRSA. Postoperative Diagnosis The same involving the skin and subcutaneous tissue and fascia of the muscle. And some superficial muscle fibers. 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 Also culture sent. Grafts/Implants none Complications none ETHEL WRIGHT MD Jan 05, 2017 12:01
--- NOTE | 2017-01-05 13:15 | CONS ---
Date/Time of Note Date/Time of Note DATE: 01/05/17 TIME: 13:14 Assessment/Plan Assessment/Plan Chief Complaint/Hosp Course SUBJECTIVE: No events overnight, looks comfortable, no fevers. MICROBIOLOGY: Forehead wound grew MRSA. ANTIMICROBIALS: Rifampin, IV Daptomycin PHYSICAL EXAMINATION: GENERAL: Well-developed, elderly man in no distress. HEENT: Head atraumatic, normocephalic. Sclerae anicteric. Buccal mucosa dry. NECK: Supple. CHEST: Rise symmetrical. Breath sounds diminished to bases. HEART: S1, S2. ABDOMEN: Soft, bowel tones present. EXTREMITIES: Without cyanosis. SKIN: Dry, pale. There is erythema on the forehead. ASSESSMENT: 1. Methicillin-resistant Staphylococcus aureus cellulitis of the forehead with self- draining abscess. 2. Hypertension. 3. Chronic obstructive pulmonary disease. 4. Ischemic cardiomyopathy. 5. Chronic kidney disease stage III. PLAN: The patient remains stable. Continue abx, pending debridement DW staff Problems: Consultation Date/Type/Reason Admit Date/Time Dec 23, 2016 at 02:25 Type of Consultation: ID Referring Provider: JOS FOSTER MD Exam/Review of Systems Vital Signs Vitals Vital Signs Date Time Temp Pulse Resp B/P Pulse Ox O2 Delivery O2 Flow Rate FiO2 01/05/17 13:11 77 01/05/17 12:26 19 106/61 96 Room Air 01/05/17 11:52 99.3 01/05/17 08:12 21 Intake and Output 01/04/17 01/04/17 01/05/17 15:00 23:00 07:00 Intake Total 740 ml 150 ml Output Total 500 ml 400 ml Balance 240 ml -250 ml Results Result Diagram: 01/05/1761601/05/1717 Results 24 hrs Laboratory Tests Test 01/04/17 17:39 01/04/17 20:58 01/05/17 06:17 01/05/17 08:38 Bedside Glucose 105 74 117 White Blood Count 6.2 Red Blood Count 4.06 L Hemoglobin 8.5 L Hematocrit 30.8 L Mean Corpuscular Volume 75.9 L Mean Corpuscular Hemoglobin 20.9 L Mean Corpuscular Hemoglobin Concent 27.6 L Red Cell Distribution Width 19.9 H Platelet Count 262 Mean Platelet Volume 10.3 Neutrophils % 67.6 Lymphocytes % 20.1 Monocytes % 8.7 Eosinophils % 2.6 Basophils % 0.5 Nucleated Red Blood Cells % 0.0 Neutrophils # 4.2 Lymphocytes # 1.2 Monocytes # 0.5 Eosinophils # 0.2 Basophils # 0.0 Nucleated Red Blood Cells # 0.0 Sodium Level 144 Potassium Level 5.0 Chloride Level 106 Carbon Dioxide Level 29 Anion Gap 14 Blood Urea Nitrogen 27 H Creatinine 1.75 H Glucose Level 104 Calcium Level 8.7 Medications Medications Current Medications Morphine Sulfate (morphine) 4 mg Q4H PRN IV PAIN LEVEL 6-10; Start 12/23/16 at 05:00 Miscellaneous Information 1 ea NOTE XX ; Start 12/23/16 at 08:00 Glucose (Glutose) 15 gm Q15M PRN PO DECREASED GLUCOSE; Start 12/23/16 at 08:00 Glucose (Glutose) 22.5 gm Q15M PRN PO DECREASED GLUCOSE; Start 12/23/16 at 08: 00 Dextrose (D50w Syringe) 25 ml Q15M PRN IV DECREASED GLUCOSE; Start 12/23/16 at 08:00 Dextrose (D50w Syringe) 50 ml Q15M PRN IV DECREASED GLUCOSE; Start 12/23/16 at 08:00 Glucagon (Glucagen) 1 mg Q15M PRN IM DECREASED GLUCOSE; Start 12/23/16 at 08: 00 Glucose (Glutose) 15 gm Q15M PRN BUCCAL DECREASED GLUCOSE; Start 12/23/16 at 08:00 Acetaminophen (Tylenol Tab) 650 mg Q6H PRN PO PAIN AND OR ELEVATED TEMP Last administered on 12/24/16 17:40; Admin Dose 650 MG; Start 12/23/16 at 14:30 Acetaminophen/ Hydrocodone Bitart ([place] (5/325)) 1 tab Q6H PRN PO PAIN LEVEL 6 -10 Last administered on 12/29/16 16:52; Admin Dose 1 TAB; Start 12/24/16 at 23:00 Pantoprazole (Protonix Tab) 40 mg DAILY@06 PO Last administered on 01/04/17 06 :18; Admin Dose 40 MG; Start 12/26/16 at 06:00 Diagnostic Test (Pha) (Accu-Chek) 1 ea 02 XX ; Start 12/26/16 at 02:00 Digoxin (Digoxin) 0.125 mg DAILY PO Last administered on 01/05/17 08:53; Admin Dose 0.125 MG; Start 12/26/16 at 09:00 Mirtazapine (Remeron) 15 mg HS PO Last administered on 01/04/17 20:57; Admin Dose 15 MG; Start 12/26/16 at 21:00 Venlafaxine HCl (Effexor Xr) 150 mg BID PO Last administered on 01/05/17 08: 58; Admin Dose 150 MG; Start 12/26/16 at 09:00 Silver Sulfadiazine (Thermazene 1% 25 Gm) 1 applic BID TOP Last administered on 01/05/17 08:58; Admin Dose 1 APPLIC; Start 12/26/16 at 21:00 Rifampin (Rifampin) 600 mg DAILY PO Last administered on 01/05/17 08:53; Admin Dose 600 MG; Start 12/27/16 at 14:00 Atorvastatin Calcium (Lipitor) 40 mg HS PO Last administered on 01/04/17 20:57 ; Admin Dose 40 MG; Start 12/28/16 at 21:00 Metoprolol Succinate (Toprol Xl) 12.5 mg BID PO Last administered on 08:54; Admin Dose 12.5 MG; Start 12/28/16 at 21:30 Magnesium Hydroxide 30 ml 30 ml HS PO Last administered on 12/31/16 21:16; Admin Dose 30 ML; Start 12/29/16 at 21:00 Daptomycin/Sodium Chloride (Cubicin/NS) 100 ml @ 200 mls/hr Q48H IVPB Last administered on 01/04/17 14:52; Admin Dose 200 MLS/HR; Start 01/02/17 at 14:00 Polyethylene Glycol (Miralax) 17 gm BID PO Last administered on 01/05/17 08: 54; Admin Dose 17 GM; Start 01/02/17 at 21:00 ILENE JUDGE NP Jan 05, 2017 13:15
--- NOTE | 2017-01-05 14:47 | CONS ---
Date/Time of Note Date/Time of Note DATE: 01/05/17 TIME: 14:46 Assessment/Plan Assessment/Plan Additional Assessment/Plan 1. Preoperative evaluation prior to surgical intervention for scalp abscess.- negative trop x 3. No ischemia by keiry this admit. Tolerated procedure well. 2. History of ischemic cardiomyopathy, last known ejection fraction approximately 40% by echo 2016. 30-35% by echo this year. No ischemia by keiry with EF underestimated. Not in CHF by exam now. 3. Hypertension- well Rx now. Controlled. 4. History of percutaneous transluminal coronary angioplasty and stent placement multiple times with most recent approximately 2 to 3 years prior per patient on Plavix. 5. History of transcatheter aortic valve replacement in 2016- stable by exam. 6. Scalp abscess- post op, anti-Bx now. 7. Diabetes mellitus. 8. Chronic obstructive pulmonary disease. 9. Ongoing tobacco usage. 10. Anemia. 11. Renal failure. 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 Consultation Date/Type/Reason Admit Date/Time Dec 23, 2016 at 02:25 Initial Consult Date 12/28/16 Type of Consultation: ID Referring Provider: JOS FOSTER MD 24 HR Interval Summary Free Text/Dictation NO acute events - no significant ectopy on tele - will monitor. ROS: No fever, no chills, no nausea, no vomiting, no diarrhea/constipation No recent weight changes No chest pain, no PND, no orthopnea No dizziness, blurred vision No thirst, no heat or cold intolerance Exam/Review of Systems Vital Signs Vitals Vital Signs Date Time Temp Pulse Resp B/P Pulse Ox O2 Delivery O2 Flow Rate FiO2 01/05/17 13:14 98.0 57 18 111/69 98 01/05/17 12:26 Room Air 01/05/17 08:12 21 Intake and Output 01/04/17 01/04/17 01/05/17 15:00 23:00 07:00 Intake Total 740 ml 150 ml Output Total 500 ml 400 ml Balance 240 ml -250 ml Exam General: WN/WD/NAD, AOx 3 HEENT: Unicetric/BANDAGES /EOMI (follow commands) NECK: JVD elevated, no thyromegaly Lymph: no lymphadenopathy HEART: regular with no S3, II/ systolic murmur at apex LUNGS: Coarse sounds ABD: soft, NT, ND, +BS : Intact Neuro: non focal SKIN: chronic changes EXT: trace edema Results Result Diagram: 01/05/1761601/05/17616 Results 24 hrs Laboratory Tests Test 01/04/17 17:39 01/04/17 20:58 01/05/17 06:17 01/05/17 08:38 Bedside Glucose 105 74 117 White Blood Count 6.2 Red Blood Count 4.06 L Hemoglobin 8.5 L Hematocrit 30.8 L Mean Corpuscular Volume 75.9 L Mean Corpuscular Hemoglobin 20.9 L Mean Corpuscular Hemoglobin Concent 27.6 L Red Cell Distribution Width 19.9 H Platelet Count 262 Mean Platelet Volume 10.3 Neutrophils % 67.6 Lymphocytes % 20.1 Monocytes % 8.7 Eosinophils % 2.6 Basophils % 0.5 Nucleated Red Blood Cells % 0.0 Neutrophils # 4.2 Lymphocytes # 1.2 Monocytes # 0.5 Eosinophils # 0.2 Basophils # 0.0 Nucleated Red Blood Cells # 0.0 Sodium Level 144 Potassium Level 5.0 Chloride Level 106 Carbon Dioxide Level 29 Anion Gap 14 Blood Urea Nitrogen 27 H Creatinine 1.75 H Glucose Level 104 Calcium Level 8.7 Test 01/05/17 13:07 Bedside Glucose 145 Medications Medications Current Medications Morphine Sulfate (morphine) 4 mg Q4H PRN IV PAIN LEVEL 6-10; Start 12/23/16 at 05:00 Miscellaneous Information 1 ea NOTE XX ; Start 12/23/16 at 08:00 Glucose (Glutose) 15 gm Q15M PRN PO DECREASED GLUCOSE; Start 12/23/16 at 08:00 Glucose (Glutose) 22.5 gm Q15M PRN PO DECREASED GLUCOSE; Start 12/23/16 at 08: 00 Dextrose (D50w Syringe) 25 ml Q15M PRN IV DECREASED GLUCOSE; Start 12/23/16 at 08:00 Dextrose (D50w Syringe) 50 ml Q15M PRN IV DECREASED GLUCOSE; Start 12/23/16 at 08:00 Glucagon (Glucagen) 1 mg Q15M PRN IM DECREASED GLUCOSE; Start 12/23/16 at 08: 00 Glucose (Glutose) 15 gm Q15M PRN BUCCAL DECREASED GLUCOSE; Start 12/23/16 at 08:00 Acetaminophen (Tylenol Tab) 650 mg Q6H PRN PO PAIN AND OR ELEVATED TEMP Last administered on 12/24/16 17:40; Admin Dose 650 MG; Start 12/23/16 at 14:30 Acetaminophen/ Hydrocodone Bitart ([place] (5/325)) 1 tab Q6H PRN PO PAIN LEVEL 6 -10 Last administered on 12/29/16 16:52; Admin Dose 1 TAB; Start 12/24/16 at 23:00 Pantoprazole (Protonix Tab) 40 mg DAILY@06 PO Last administered on 01/04/17 06 :18; Admin Dose 40 MG; Start 12/26/16 at 06:00 Diagnostic Test (Pha) (Accu-Chek) 1 ea 02 XX ; Start 12/26/16 at 02:00 Digoxin (Digoxin) 0.125 mg DAILY PO Last administered on 01/05/17 08:53; Admin Dose 0.125 MG; Start 12/26/16 at 09:00 Mirtazapine (Remeron) 15 mg HS PO Last administered on 01/04/17 20:57; Admin Dose 15 MG; Start 12/26/16 at 21:00 Venlafaxine HCl (Effexor Xr) 150 mg BID PO Last administered on 01/05/17 08: 58; Admin Dose 150 MG; Start 12/26/16 at 09:00 Silver Sulfadiazine (Thermazene 1% 25 Gm) 1 applic BID TOP Last administered on 01/05/17 08:58; Admin Dose 1 APPLIC; Start 12/26/16 at 21:00 Rifampin (Rifampin) 600 mg DAILY PO Last administered on 01/05/17 08:53; Admin Dose 600 MG; Start 12/27/16 at 14:00 Atorvastatin Calcium (Lipitor) 40 mg HS PO Last administered on 01/04/17 20:57 ; Admin Dose 40 MG; Start 12/28/16 at 21:00 Metoprolol Succinate (Toprol Xl) 12.5 mg BID PO Last administered on 08:54; Admin Dose 12.5 MG; Start 12/28/16 at 21:30 Magnesium Hydroxide 30 ml 30 ml HS PO Last administered on 12/31/16 21:16; Admin Dose 30 ML; Start 12/29/16 at 21:00 Daptomycin/Sodium Chloride (Cubicin/NS) 100 ml @ 200 mls/hr Q48H IVPB Last administered on 01/04/17 14:52; Admin Dose 200 MLS/HR; Start 01/02/17 at 14:00 Polyethylene Glycol (Miralax) 17 gm BID PO Last administered on 01/05/17 08: 54; Admin Dose 17 GM; Start 01/02/17 at 21:00 VALE TURCIOS MD Jan 05, 2017 14:47
[2017-01-05] MEDS: HYDROCODONE/APAP (5/325) TAB PO PRN (14:48)
--- NOTE | 2017-01-05 16:47 | PN ---
Date/Time of Note Date/Time of Note DATE: 01/05/17 TIME: 16:45 Assessment/Plan VTE Prophylaxis VTE Prophylaxis Intervention: SCD's Lines/Catheters IV C[facility] Type [facility]from [facility] Peripheral IV Urinary Cath still in place: No Assessment/Plan Chief Complaint/Hosp Course Pt is s/p I&D today, pain is well controlled. Assessment/Plan - Scalp cellulitis/abscess. S/p I&D 01/05. Wound cx +MRSA. Continue Daptomycin. Dr. Oliva is following in infection disease consultation. Dr. Saldivar is following in general surgery. - Ischemic cardiomyopathy with ejection fraction of 30% per last echo, continue Coreg per cardiology recs. Dr. Choudhury is following in cardiology consultation. - Bradycardia. Status post Lexiscan with no ischemia, continue telemetry monitoring. - Chronic kidney disease stage III. Monitor renal function and avoid nephrotoxic drugs. - Coronary artery disease with history of stent placement. - Chronic obstructive pulmonary disease. - Diabetes mellitus, hemoglobin A1c is 6.6, continue Amaryl and NovoLog per sliding scale. 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 Further recommendations based on clinical course. Plan of care discussed with Dr. Giron Problems: Exam/Review of Systems Vital Signs Vitals Vital Signs Date Time Temp Pulse Resp B/P Pulse Ox O2 Delivery O2 Flow Rate FiO2 01/05/17 16:04 98.0 69 18 136/91 97 01/05/17 13:15 21 01/05/17 12:26 Room Air Intake and Output 01/04/17 01/04/17 01/05/17 15:00 23:00 07:00 Intake Total 740 ml 150 ml Output Total 500 ml 400 ml Balance 240 ml -250 ml Exam Constitutional: alert, oriented Respiratory: normal air movement Cardiovascular: nl pulses Gastrointestinal: non-tender, soft Extremities: normal pulses Neurological: nl mental status Skin: other (scalp wound) Results Result Diagram: 01/05/1761601/05/17616 Results 24 hrs Laboratory Tests Test 01/04/17 17:39 01/04/17 20:58 01/05/17 06:17 01/05/17 08:38 Bedside Glucose 105 74 117 White Blood Count 6.2 Red Blood Count 4.06 L Hemoglobin 8.5 L Hematocrit 30.8 L Mean Corpuscular Volume 75.9 L Mean Corpuscular Hemoglobin 20.9 L Mean Corpuscular Hemoglobin Concent 27.6 L Red Cell Distribution Width 19.9 H Platelet Count 262 Mean Platelet Volume 10.3 Neutrophils % 67.6 Lymphocytes % 20.1 Monocytes % 8.7 Eosinophils % 2.6 Basophils % 0.5 Nucleated Red Blood Cells % 0.0 Neutrophils # 4.2 Lymphocytes # 1.2 Monocytes # 0.5 Eosinophils # 0.2 Basophils # 0.0 Nucleated Red Blood Cells # 0.0 Sodium Level 144 Potassium Level 5.0 Chloride Level 106 Carbon Dioxide Level 29 Anion Gap 14 Blood Urea Nitrogen 27 H Creatinine 1.75 H Glucose Level 104 Calcium Level 8.7 Test 01/05/17 13:07 Bedside Glucose 145 Medications Medications Current Medications Morphine Sulfate (morphine) 4 mg Q4H PRN IV PAIN LEVEL 6-10; Start 12/23/16 at 05:00 Miscellaneous Information 1 ea NOTE XX ; Start 12/23/16 at 08:00 Glucose (Glutose) 15 gm Q15M PRN PO DECREASED GLUCOSE; Start 12/23/16 at 08:00 Glucose (Glutose) 22.5 gm Q15M PRN PO DECREASED GLUCOSE; Start 12/23/16 at 08: 00 Dextrose (D50w Syringe) 25 ml Q15M PRN IV DECREASED GLUCOSE; Start 12/23/16 at 08:00 Dextrose (D50w Syringe) 50 ml Q15M PRN IV DECREASED GLUCOSE; Start 12/23/16 at 08:00 Glucagon (Glucagen) 1 mg Q15M PRN IM DECREASED GLUCOSE; Start 12/23/16 at 08: 00 Glucose (Glutose) 15 gm Q15M PRN BUCCAL DECREASED GLUCOSE; Start 12/23/16 at 08:00 Acetaminophen (Tylenol Tab) 650 mg Q6H PRN PO PAIN AND OR ELEVATED TEMP Last administered on 12/24/16 17:40; Admin Dose 650 MG; Start 12/23/16 at 14:30 Acetaminophen/ Hydrocodone Bitart ([place] (5/325)) 1 tab Q6H PRN PO PAIN LEVEL 6 -10 Last administered on 01/05/17 14:48; Admin Dose 1 TAB; Start 12/24/16 at 23:00 Pantoprazole (Protonix Tab) 40 mg DAILY@06 PO Last administered on 01/04/17 06 :18; Admin Dose 40 MG; Start 12/26/16 at 06:00 Diagnostic Test (Pha) (Accu-Chek) 1 ea 02 XX ; Start 12/26/16 at 02:00 Digoxin (Digoxin) 0.125 mg DAILY PO Last administered on 01/05/17 08:53; Admin Dose 0.125 MG; Start 12/26/16 at 09:00 Mirtazapine (Remeron) 15 mg HS PO Last administered on 01/04/17 20:57; Admin Dose 15 MG; Start 12/26/16 at 21:00 Venlafaxine HCl (Effexor Xr) 150 mg BID PO Last administered on 01/05/17 08: 58; Admin Dose 150 MG; Start 12/26/16 at 09:00 Silver Sulfadiazine (Thermazene 1% 25 Gm) 1 applic BID TOP Last administered on 01/05/17 08:58; Admin Dose 1 APPLIC; Start 12/26/16 at 21:00 Rifampin (Rifampin) 600 mg DAILY PO Last administered on 01/05/17 08:53; Admin Dose 600 MG; Start 12/27/16 at 14:00 Atorvastatin Calcium (Lipitor) 40 mg HS PO Last administered on 01/04/17 20:57 ; Admin Dose 40 MG; Start 12/28/16 at 21:00 Metoprolol Succinate (Toprol Xl) 12.5 mg BID PO Last administered on 08:54; Admin Dose 12.5 MG; Start 12/28/16 at 21:30 Magnesium Hydroxide 30 ml 30 ml HS PO Last administered on 12/31/16 21:16; Admin Dose 30 ML; Start 12/29/16 at 21:00 Daptomycin/Sodium Chloride (Cubicin/NS) 100 ml @ 200 mls/hr Q48H IVPB Last administered on 01/04/17 14:52; Admin Dose 200 MLS/HR; Start 01/02/17 at 14:00 Polyethylene Glycol (Miralax) 17 gm BID PO Last administered on 01/05/17 08: 54; Admin Dose 17 GM; Start 01/02/17 at 21:00 SELMA ELMORE Jan 05, 2017 16:47
--- NOTE | 2017-01-05 17:28 | CONS ---
Date/Time of Note Date/Time of Note DATE: 01/05/17 TIME: 17:26 Assessment/Plan Assessment/Plan Chief Complaint/Hosp Course pt admitted with forehead cellulitis with self draining abscess, seen by ID, started on IV abx, noted to have Rising Cr and renal has been consulted for MELINDA on CKD Problems: Additional Assessment/Plan 1. MELINDA on CKD Due to prerenal azotemia + ATN 2. MRSA forehead cellulitis with Abscess s/p Right scalp wound debridement bY G surg on 01/05/17 3. H/o CKD III Due to HTN 4. HTN 5. Bipolar 6. DM II Plan : IV abx vancomycin , renally dose it , Cr improved from 2.01 to 1.75 with 1liter iVF Hydation, BP stable Lisinopril stopped due to bump in Cr - BP controlled, will resume it at the time of discharge Renal US c/w medical renal disease, no hydronephrosis s/p Right scalp wound debridement bY G surg on 01/05/17- wound care, IV a bx as per ID will follow up Consultation Date/Type/Reason Admit Date/Time Dec 23, 2016 at 02:25 Initial Consult Date 12/28/16 Type of Consultation: NEPHROLOGY Referring Provider: JOS FOSTER MD 24 HR Interval Summary Free Text/Dictation Cr stable around 1.75, BP stable ,s/p Right scalp wound debridement Exam/Review of Systems Vital Signs Vitals Vital Signs Date Time Temp Pulse Resp B/P Pulse Ox O2 Delivery O2 Flow Rate FiO2 01/05/17 16:04 98.0 69 18 136/91 97 01/05/17 13:15 21 01/05/17 12:26 Room Air Intake and Output 01/04/17 01/04/17 01/05/17 15:00 23:00 07:00 Intake Total 740 ml 150 ml Output Total 500 ml 400 ml Balance 240 ml -250 ml Exam Constitutional: alert Respiratory: clear to auscultation, normal air movement Cardiovascular: nl pulses, regular rate and rhythm Gastrointestinal: non-tender, soft Musculoskeletal: nl extremities to inspection, nl gait and stance Extremities: normal pulses Neurological: [employer]ASTEW[employer] A[employer]LYST [employer] ANALYST II-XII intact, nl mental status, nl speech, nl strength Results Result Diagram: 01/05/1761601/05/1717 Results 24 hrs Laboratory Tests Test 01/04/17:39 01/04/17 20:58 01/05/17 06:17 01/05/17 08:38 Bedside Glucose 105 74 117 White Blood Count 6.2 Red Blood Count 4.06 L Hemoglobin 8.5 L Hematocrit 30.8 L Mean Corpuscular Volume 75.9 L Mean Corpuscular Hemoglobin 20.9 L Mean Corpuscular Hemoglobin Concent 27.6 L Red Cell Distribution Width 19.9 H Platelet Count 262 Mean Platelet Volume 10.3 Neutrophils % 67.6 Lymphocytes % 20.1 Monocytes % 8.7 Eosinophils % 2.6 Basophils % 0.5 Nucleated Red Blood Cells % 0.0 Neutrophils # 4.2 Lymphocytes # 1.2 Monocytes # 0.5 Eosinophils # 0.2 Basophils # 0.0 Nucleated Red Blood Cells # 0.0 Sodium Level 144 Potassium Level 5.0 Chloride Level 106 Carbon Dioxide Level 29 Anion Gap 14 Blood Urea Nitrogen 27 H Creatinine 1.75 H Glucose Level 104 Calcium Level 8.7 Test 01/05/17 13:07 Bedside Glucose 145 Medications Medications Current Medications Morphine Sulfate (morphine) 4 mg Q4H PRN IV PAIN LEVEL 6-10; Start 12/23/16 at 05:00 Miscellaneous Information 1 ea NOTE XX ; Start 12/23/16 at 08:00 Glucose (Glutose) 15 gm Q15M PRN PO DECREASED GLUCOSE; Start 12/23/16 at 08:00 Glucose (Glutose) 22.5 gm Q15M PRN PO DECREASED GLUCOSE; Start 12/23/16 at 08: 00 Dextrose (D50w Syringe) 25 ml Q15M PRN IV DECREASED GLUCOSE; Start 12/23/16 at 08:00 Dextrose (D50w Syringe) 50 ml Q15M PRN IV DECREASED GLUCOSE; Start 12/23/16 at 08:00 Glucagon (Glucagen) 1 mg Q15M PRN IM DECREASED GLUCOSE; Start 12/23/16 at 08: 00 Glucose (Glutose) 15 gm Q15M PRN BUCCAL DECREASED GLUCOSE; Start 12/23/16 at 08:00 Acetaminophen (Tylenol Tab) 650 mg Q6H PRN PO PAIN AND OR ELEVATED TEMP Last administered on 12/24/16t 17:40; Admin Dose 650 MG; Start 12/23/16 at 14:30 Acetaminophen/ Hydrocodone Bitart ([place] (5/325)) 1 tab Q6H PRN PO PAIN LEVEL 6 -10 Last administered on 01/05/17 14:48; Admin Dose 1 TAB; Start 12/24/16 at 23:00 Pantoprazole (Protonix Tab) 40 mg DAILY@06 PO Last administered on 01/04/17 06 :18; Admin Dose 40 MG; Start 12/26/16 at 06:00 Diagnostic Test (Pha) (Accu-Chek) 1 ea 02 XX ; Start 12/26/16 at 02:00 Digoxin (Digoxin) 0.125 mg DAILY PO Last administered on 01/05/17 08:53; Admin Dose 0.125 MG; Start 12/26/16 at 09:00 Mirtazapine (Remeron) 15 mg HS PO Last administered on 01/04/17 20:57; Admin Dose 15 MG; Start 12/26/16 at 21:00 Venlafaxine HCl (Effexor Xr) 150 mg BID PO Last administered on 01/05/17 08: 58; Admin Dose 150 MG; Start 12/26/16 at 09:00 Silver Sulfadiazine (Thermazene 1% 25 Gm) 1 applic BID TOP Last administered on 01/05/17 08:58; Admin Dose 1 APPLIC; Start 12/26/16 at 21:00 Rifampin (Rifampin) 600 mg DAILY PO Last administered on 01/05/17 08:53; Admin Dose 600 MG; Start 12/27/16 at 14:00 Atorvastatin Calcium (Lipitor) 40 mg HS PO Last administered on 01/04/17 20:57 ; Admin Dose 40 MG; Start 12/28/16 at 21:00 Metoprolol Succinate (Toprol Xl) 12.5 mg BID PO Last administered on 08:54; Admin Dose 12.5 MG; Start 12/28/16 at 21:30 Magnesium Hydroxide 30 ml 30 ml HS PO Last administered on 12/31/16 21:16; Admin Dose 30 ML; Start 12/29/16 at 21:00 Daptomycin/Sodium Chloride (Cubicin/NS) 100 ml @ 200 mls/hr Q48H IVPB Last administered on 01/04/17 14:52; Admin Dose 200 MLS/HR; Start 01/02/17 at 14:00 Polyethylene Glycol (Miralax) 17 gm BID PO Last administered on 01/05/17t 08: 54; Admin Dose 17 GM; Start 01/02/17 at 21:00 MIHAI JOSEPH MD Jan 05, 2017 17:28
--- NOTE | 2017-01-05 20:06 | OPR ---
DATE OF OPERATION: 01/05/2017 SURGEON: Joe Saldivar MD DRIVE IN TELLER: None. ANESTHESIA: MAC and local anesthesia. ANESTHESIOLOGIST: Dr. Porras PREOPERATIVE DIAGNOSIS: Cellulitis and abscess of right frontal scalp. POSTOPERATIVE DIAGNOSES: Cellulitis and abscess of right frontal scalp with necrotic tissues. OPERATION PERFORMED: 1. Sharp excisional debridement of necrotic tissue including part of the skin and subcutaneous tissue and fascia of the frontalis muscle and some fibers of the frontalis muscle. 2. Thorough irrigation with hydrogen peroxide. 3. Hemostasis using electrocautery. 4. Application of Silvadene cream for dressing. INDICATION: The patient is a 76-year-old gentleman who was brought by the family complaining of right forehead swelling and pain and tenderness and redness and some purulent discharge. He was diagnosed with abscess of the right forehead. The patient was admitted, started on antibiotics. The culture grew MRSA. The patient had medical problems including long history of heart disease, myopathy, and stent, so we requested cardiology clearance. Cardiology evaluation was done and eventually cleared the patient for operation and anesthesia. Meanwhile local treatment at the bedside and local debridement as much as possible was done by myself Eventually today, the patient was taken to the OR and under MAC local anesthesia, debridement was performed. PROCEDURE: The patient was brought to the operating room, placed on operating table in supine position. Anesthesia was induced by the anesthesiologist. First the hair was shaved by me. Then, local injection of a mixture of 20 mL 2 % lidocaine with epinephrine plus 20 mL of 0.25% Marcaine without epinephrine was performed for local anesthesia and hemostasis. Then a cruciate skin incision was made. The edge of the skin which necrotic was excised sharply with the knife and was sent for pathologic evaluation. Then, local flaps were raised as much as possible until we reached normal looking tissues. There was necrotic subcutaneous tissue and fascia over the frontalis muscle. These necrotic tissues were excised sharply the specimen was sent for pathologic evaluation. Using electrocautery, hemostasis was achieved completely. Wound was thoroughly irrigated with normal saline solution and later on with hydrogen peroxide and then hemostasis achieved and again irrigated with normal saline. At this time, I could not see any more necrotic tissue left, so Silvadene cream was applied inside the wound. The raised flaps were put back in their place, hoping that they are going to survive, preventing large defect of the skin and the skull, and then dry dressing was applied. Patient tolerated procedure well. ESTIMATED BLOOD LOSS: 10 mL. The patient was taken to recovery room and from there to go to the floor. Specimen was sent for pathologic evaluation. Dictated By: JOE PHAN/ALBARO Conf#: [id number] DID#: [id number]
[2017-01-05] MEDS: MIRTAZAPINE 15 MG TAB PO SCH (20:57)
[2017-01-05] MEDS: MAGNESIUM HYDROXIDE 30ML CUP PO SCH (20:57)
[2017-01-05] MEDS: ATORVASTATIN 40 MG TAB PO SCH (20:58)
[2017-01-06] VITALS (12 sets, daily range): BP systolic 111–157; BP diastolic 50–70; PULSE 50–68; RESP 18–21
[2017-01-06] MEDS: ALBUTEROL/IPRATROPIUM (NEB) 3 ML AMP HHN SCH ×4 (01:37→20:25)
[2017-01-06] MEDS: ACCU-CHEK XX SCH (02:00)
[2017-01-06] MEDS: HYDROCODONE/APAP (5/325) TAB PO PRN (04:01)
[2017-01-06] MEDS: PANTOPRAZOLE (EC) 40 MG TAB PO SCH (06:18)
[2017-01-06] MEDS: LEVOTHYROXINE 150 MCG TAB PO SCH (06:18)
[2017-01-06 06:19] LABS: ABNORMAL IP MESSAGE 1; BASOPHILS % 0.3 % (0.0-2.0); EOSINOPHILS # 0.1 10^3/ul (0.0-0.5); HEMATOCRIT 29.8 % (42.0-52.0); HEMOGLOBIN 8.4 g/dl (14.0-18.0); LYMPHOCYTES # 1.1 10^3/ul (0.8-2.9); LYMPHOCYTES % 16.2 % (15.0-51.0); MEAN CORPUSCULAR HEMOGLOBIN 21.3 pg (29.0-33.0); MEAN CORPUSCULAR HGB CONC 28.2 g/dl (32.0-37.0); MEAN CORPUSCULAR VOLUME 75.4 fl (82.0-101.0); MONOCYTE # 0.5 10^3/ul (0.3-0.9); MONOCYTES % 7.3 % (0.0-11.0); NEUTROPHILS % 74.9 % (39.0-77.0); PLATELET COUNT 250 10^3/UL (140-415); POSITIVE DIFF @See below; RED BLOOD COUNT 3.95 10^6/ul (4.70-6.10); RED CELL DISTRIBUTION WIDTH 19.9 % (11.5-14.5); WHITE BLOOD COUNT 6.7 10^3/ul (4.8-10.8)
[2017-01-06 06:44] LABS: CALCIUM 8.4 mg/dl (8.4-10.2); CREATININE 1.49 mg/dl (0.61-1.24); POTASSIUM 4.1 mmol/L (3.5-5.1)
[2017-01-06] MEDS: INSULIN ASPART [NOVOLOG] 3 ML PEN SC SCH ×7 (08:00→20:26)
[2017-01-06] MEDS: GLIMEPIRIDE 2 MG TAB PO SCH (08:02)
[2017-01-06] MEDS: POLYETHYLENE GLYCOL 17 GM PACKET PO SCH ×2 (09:00→20:39)
--- NOTE | 2017-01-06 09:04 | PN ---
Date/Time of Note Date/Time of Note DATE: 01/06/17 TIME: 09:03 Assessment/Plan VTE Prophylaxis VTE Prophylaxis Intervention: other Lines/Catheters IV Catheter Type (from [facility]): [facility] Urinary Cath still in place: No Assessment/Plan Chief Complaint/Hosp Course - Scalp cellulitis/abscess. S/p I&D 01/05. Wound cx +MRSA. Continue Daptomycin. Dr. Oliva is following in infection disease consultation. Dr. Saldivar is following in general surgery. - Ischemic cardiomyopathy with ejection fraction of 30% per last echo, continue Coreg per cardiology recs. Dr. Choudhury is following in cardiology consultation. - Bradycardia. Status post Lexiscan with no ischemia, continue telemetry monitoring. - Chronic kidney disease stage III. Monitor renal function and avoid nephrotoxic drugs. - Coronary artery disease with history of stent placement. - Chronic obstructive pulmonary disease. - Diabetes mellitus, hemoglobin A1c is 6.6, continue Amaryl and NovoLog per sliding scale. 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 Problems: Subjective 24 Hr Interval Summary Free Text/Dictation Patient complain of pain in back of head Exam/Review of Systems Vital Signs Vitals Vital Signs Date Time Temp Pulse Resp B/P Pulse Ox O2 Delivery O2 Flow Rate FiO2 01/06/17 08:05 60 01/06/17 07:52 20 21 01/06/17 07:41 98.9 132/70 01/05/17 19:45 21 01/05/17 12:26 Room Air Intake and Output 01/05/17 01/05/17 01/06/17 15:00 23:00 07:00 Intake Total 400 ml 700 ml 250 ml Output Total 5 ml 400 ml 750 ml Balance 395 ml 300 ml -500 ml Exam Constitutional: well developed Head: atraumatic, normocephalic Neck: supple Respiratory: clear to auscultation Cardiovascular: regular rate and rhythm Gastrointestinal: non-tender, soft Extremities: normal pulses Results Result Diagram: 01/06/17 0529 01/06/17 0529 Results 24 hrs Laboratory Tests Test 01/05/17 13:07 01/05/17 17:49 01/05/17 21:00 01/06/17 05:29 Bedside Glucose 145 185 83 White Blood Count 6.7 Red Blood Count 3.95 L Hemoglobin 8.4 L Hematocrit 29.8 L Mean Corpuscular Volume 75.4 L Mean Corpuscular Hemoglobin 21.3 L Mean Corpuscular Hemoglobin Concent 28.2 L Red Cell Distribution Width 19.9 H Platelet Count 250 Mean Platelet Volume 11.0 H Neutrophils % 74.9 Lymphocytes % 16.2 Monocytes % 7.3 Eosinophils % 1.0 Basophils % 0.3 Nucleated Red Blood Cells % 0.0 Neutrophils # 5.0 Lymphocytes # 1.1 Monocytes # 0.5 Eosinophils # 0.1 Basophils # 0.0 Nucleated Red Blood Cells # 0.0 Sodium Level 140 Potassium Level 4.1 Chloride Level 104 Carbon Dioxide Level 28 Anion Gap 12 Blood Urea Nitrogen 25 H Creatinine 1.49 H Glucose Level 145 # Calcium Level 8.4 Test 01/06/17 07:56 Bedside Glucose 120 Medications Medications Current Medications Morphine Sulfate (morphine) 4 mg Q4H PRN IV PAIN LEVEL 6-10; Start 12/23/16 at 05:00 Miscellaneous Information 1 ea NOTE XX ; Start 12/23/16 at 08:00 Glucose (Glutose) 15 gm Q15M PRN PO DECREASED GLUCOSE; Start 12/23/16 at 08:00 Glucose (Glutose) 22.5 gm Q15M PRN PO DECREASED GLUCOSE; Start 12/23/16 at 08: 00 Dextrose (D50w Syringe) 25 ml Q15M PRN IV DECREASED GLUCOSE; Start 12/23/16 at 08:00 Dextrose (D50w Syringe) 50 ml Q15M PRN IV DECREASED GLUCOSE; Start 12/23/16 at 08:00 Glucagon (Glucagen) 1 mg Q15M PRN IM DECREASED GLUCOSE; Start 12/23/16 at 08: 00 Glucose (Glutose) 15 gm Q15M PRN BUCCAL DECREASED GLUCOSE; Start 12/23/16 at 08:00 Acetaminophen (Tylenol Tab) 650 mg Q6H PRN PO PAIN AND OR ELEVATED TEMP Last administered on 12/24/16 17:40; Admin Dose 650 MG; Start 12/23/16 at 14:30 Acetaminophen/ Hydrocodone Bitart ([place] (5/325)) 1 tab Q6H PRN PO PAIN LEVEL 6 -10 Last administered on 01/06/17 04:01; Admin Dose 1 TAB; Start 12/24/16 at 23:00 Pantoprazole (Protonix Tab) 40 mg DAILY@06 PO Last administered on 01/06/17 06:18; Admin Dose 40 MG; Start 12/26/16 at 06:00 Diagnostic Test (Pha) (Accu-Chek) 1 ea 02 XX ; Start 12/26/16 at 02:00 Digoxin (Digoxin) 0.125 mg DAILY PO Last administered on 01/05/17 08:53; Admin Dose 0.125 MG; Start 12/26/16 at 09:00 Mirtazapine (Remeron) 15 mg HS PO Last administered on 01/05/17 20:57; Admin Dose 15 MG; Start 12/26/16 at 21:00 Venlafaxine HCl (Effexor Xr) 150 mg BID PO Last administered on 01/05/17 23: 00; Admin Dose 150 MG; Start 12/26/16 at 09:00 Silver Sulfadiazine (Thermazene 1% 25 Gm) 1 applic BID TOP Last administered on 01/05/17 08:58; Admin Dose 1 APPLIC; Start 12/26/16 at 21:00 Rifampin (Rifampin) 600 mg DAILY PO Last administered on 01/05/17 08:53; Admin Dose 600 MG; Start 12/27/16 at 14:00 Atorvastatin Calcium (Lipitor) 40 mg HS PO Last administered on 01/05/17 20: 58; Admin Dose 40 MG; Start 12/28/16 at 21:00 Metoprolol Succinate (Toprol Xl) 12.5 mg BID PO Last administered on 20:59; Admin Dose 12.5 MG; Start 12/28/16 at 21:30 Magnesium Hydroxide 30 ml 30 ml HS PO Last administered on 01/05/17 20:57; Admin Dose 30 ML; Start 12/29/16 at 21:00 Daptomycin/Sodium Chloride (Cubicin/NS) 100 ml @ 200 mls/hr Q48H IVPB Last administered on 01/04/17 14:52; Admin Dose 200 MLS/HR; Start 01/02/17 at 14:00 Polyethylene Glycol (Miralax) 17 gm BID PO Last administered on 01/05/17 20: 58; Admin Dose 17 GM; Start 01/02/17 at 21:00 DAMIR LATIF Jan 06, 2017 09:04
[2017-01-06] MEDS: RIFAMPIN 300 MG CAP PO SCH (09:05)
[2017-01-06] MEDS: METOPROLOL (XL) 25 MG TAB PO SCH ×2 (09:08→20:39)
[2017-01-06] MEDS: DIGOXIN 0.125 MG TAB PO SCH (09:08)
[2017-01-06] MEDS: VENLAFAXINE (XR) 75 MG CAP PO SCH ×2 (10:11→20:38)
[2017-01-06] MEDS: SILVER SULFADIAZINE 1% 25 GM CR TOP SCH ×2 (10:11→20:39)
--- NOTE | 2017-01-06 10:31 | CONS ---
Date/Time of Note Date/Time of Note DATE: 01/06/17 TIME: 10:22 Assessment/Plan Assessment/Plan Additional Assessment/Plan pt admitted with forehead cellulitis with self draining abscess, seen by ID, started on IV abx, noted to have Rising Cr and renal has been consulted for MELINDA on CKD 1. MELINDA on CKD Due to prerenal azotemia + ATN - Cr improved from 2.01 to 1.49 2. MRSA forehead cellulitis with Abscess s/p Right scalp wound debridement bY G surg on 01/05/17-- still draining-pus/blood per staff- MRSA wound.ID follows 3. H/o CKD III Due to HTN 4. HTN 5. Bipolar 6. DM II Plan : IV abx vancomycin , renally dose it , Cr improved from 2.01 to 1.49 with 1liter iVF Hydration -BP stable Lisinopril stopped due to bump in Cr - BP controlled, will resume it at the time of discharge Renal US c/w medical renal disease, no hydronephrosis s/p Right scalp wound debridement by G surg on 01/05/17- wound care, IV a bx as per ID will follow up Dw Dr Rony Novak/octavio Consultation Date/Type/Reason Admit Date/Time Dec 23, 2016 at 02:25 Initial Consult Date 12/28/16 Type of Consultation: NEPHROLOGY Referring Provider: JOS FOSTER MD 24 HR Interval Summary Free Text/Dictation Cr improved from 2.01 to 1.49 with 1liter iVF Hydration, feels better, afebrile , no new issues reported overnight by staff. Constitutional: improved Detailed Summary Respiratory: no complaints Cardiovascular: no complaints Gastrointestinal: no complaints Genitourinary: no complaints Musculoskeletal: no complaints Skin: other (sp I/D scalp wound- still draining-pus/blood per staff- MRSA wound.) Exam/Review of Systems Vital Signs Vitals Vital Signs Date Time Temp Pulse Resp B/P Pulse Ox O2 Delivery O2 Flow Rate FiO2 01/06/17 08:05 60 01/06/17 07:52 20 21 01/06/17 07:41 98.9 132/70 01/05/17 19:45 21 01/05/17 12:26 Room Air Intake and Output 01/05/17 01/05/17 01/06/17 15:00 23:00 07:00 Intake Total 400 ml 700 ml 250 ml Output Total 5 ml 400 ml 750 ml Balance 395 ml 300 ml -500 ml Exam Constitutional: alert, oriented, well developed Respiratory: diminished breath sounds, normal air movement Cardiovascular: nl pulses, other (s1s2s) Gastrointestinal: non-tender, other (HR 85 ), soft Musculoskeletal: nl extremities to inspection Extremities: normal pulses Neurological: other (alert, awake, responsive) Results Result Diagram: 01/06/1752801/06/17528 Results 24 hrs Laboratory Tests Test 01/05/17 13:07 01/05/17 17:49 01/05/17 21:00 01/06/17 05:29 Bedside Glucose 145 185 83 White Blood Count 6.7 Red Blood Count 3.95 L Hemoglobin 8.4 L Hematocrit 29.8 L Mean Corpuscular Volume 75.4 L Mean Corpuscular Hemoglobin 21.3 L Mean Corpuscular Hemoglobin Concent 28.2 L Red Cell Distribution Width 19.9 H Platelet Count 250 Mean Platelet Volume 11.0 H Neutrophils % 74.9 Lymphocytes % 16.2 Monocytes % 7.3 Eosinophils % 1.0 Basophils % 0.3 Nucleated Red Blood Cells % 0.0 Neutrophils # 5.0 Lymphocytes # 1.1 Monocytes # 0.5 Eosinophils # 0.1 Basophils # 0.0 Nucleated Red Blood Cells # 0.0 Sodium Level 140 Potassium Level 4.1 Chloride Level 104 Carbon Dioxide Level 28 Anion Gap 12 Blood Urea Nitrogen 25 H Creatinine 1.49 H Glucose Level 145 # Calcium Level 8.4 Test 01/06/17 07:56 Bedside Glucose 120 Medications Medications Current Medications Morphine Sulfate (morphine) 4 mg Q4H PRN IV PAIN LEVEL 6-10; Start 12/23/16 at 05:00 Miscellaneous Information 1 ea NOTE XX ; Start 12/23/16 at 08:00 Glucose (Glutose) 15 gm Q15M PRN PO DECREASED GLUCOSE; Start 12/23/16 at 08:00 Glucose (Glutose) 22.5 gm Q15M PRN PO DECREASED GLUCOSE; Start 12/23/16 at 08: 00 Dextrose (D50w Syringe) 25 ml Q15M PRN IV DECREASED GLUCOSE; Start 12/23/16 at 08:00 Dextrose (D50w Syringe) 50 ml Q15M PRN IV DECREASED GLUCOSE; Start 12/23/16 at 08:00 Glucagon (Glucagen) 1 mg Q15M PRN IM DECREASED GLUCOSE; Start 12/23/16 at 08: 00 Glucose (Glutose) 15 gm Q15M PRN BUCCAL DECREASED GLUCOSE; Start 12/23/16 at 08:00 Acetaminophen (Tylenol Tab) 650 mg Q6H PRN PO PAIN AND OR ELEVATED TEMP Last administered on 12/24/16 17:40; Admin Dose 650 MG; Start 12/23/16 at 14:30 Acetaminophen/ Hydrocodone Bitart ([place] (5/325)) 1 tab Q6H PRN PO PAIN LEVEL 6 -10 Last administered on 01/06/17 04:01; Admin Dose 1 TAB; Start 12/24/16 at 23:00 Pantoprazole (Protonix Tab) 40 mg DAILY@06 PO Last administered on 01/06/17 06:18; Admin Dose 40 MG; Start 12/26/16 at 06:00 Diagnostic Test (Pha) (Accu-Chek) 1 ea 02 XX ; Start 12/26/16 at 02:00 Digoxin (Digoxin) 0.125 mg DAILY PO Last administered on 01/06/17 09:08; Admin Dose 0.125 MG; Start 12/26/16 at 09:00 Mirtazapine (Remeron) 15 mg HS PO Last administered on 01/05/17 20:57; Admin Dose 15 MG; Start 12/26/16 at 21:00 Venlafaxine HCl (Effexor Xr) 150 mg BID PO Last administered on 01/06/17 10: 11; Admin Dose 150 MG; Start 12/26/16 at 09:00 Silver Sulfadiazine (Thermazene 1% 25 Gm) 1 applic BID TOP Last administered on 01/06/17 10:11; Admin Dose 1 APPLIC; Start 12/26/16 at 21:00 Rifampin (Rifampin) 600 mg DAILY PO Last administered on 01/06/17 09:05; Admin Dose 600 MG; Start 12/27/16 at 14:00 Atorvastatin Calcium (Lipitor) 40 mg HS PO Last administered on 01/05/17 20: 58; Admin Dose 40 MG; Start 12/28/16 at 21:00 Metoprolol Succinate (Toprol Xl) 12.5 mg BID PO Last administered on 09:08; Admin Dose 12.5 MG; Start 12/28/16 at 21:30 Magnesium Hydroxide 30 ml 30 ml HS PO Last administered on 01/05/17 20:57; Admin Dose 30 ML; Start 12/29/16 at 21:00 Daptomycin/Sodium Chloride (Cubicin/NS) 100 ml @ 200 mls/hr Q48H IVPB Last administered on 01/04/17 14:52; Admin Dose 200 MLS/HR; Start 01/02/17 at 14:00 Polyethylene Glycol (Miralax) 17 gm BID PO Last administered on 01/05/17 20: 58; Admin Dose 17 GM; Start 01/02/17 at 21:00 SOFÍA CHU Jan 06, 2017 10:31
--- NOTE | 2017-01-06 14:07 | CONS ---
Date/Time of Note Date/Time of Note DATE: 01/06/17 TIME: 14:06 Assessment/Plan Assessment/Plan Additional Assessment/Plan 1. Preoperative evaluation prior to surgical intervention for scalp abscess.- negative trop x 3. No ischemia by keiry this admit. Tolerated procedure well. Con't to follow. 2. History of ischemic cardiomyopathy, last known ejection fraction approximately 40% by echo 2016. 30-35% by echo this year. No ischemia by keiry with EF underestimated. Not in CHF by exam now. BETTER fluid satus. 3. Hypertension- well Rx now. Controlled. 4. History of percutaneous transluminal coronary angioplasty and stent placement multiple times with most recent approximately 2 to 3 years prior per patient on Plavix. 5. History of transcatheter aortic valve replacement in 2016- stable by exam. 6. Scalp abscess- post op, anti-Bx now. 7. Diabetes mellitus- KEEP EUGLYCEMIC. 8. Chronic obstructive pulmonary disease. 9. Ongoing tobacco usage. 10. Anemia. 11. Renal failure. 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 Consultation Date/Type/Reason Admit Date/Time Dec 23, 2016 at 02:25 Initial Consult Date 12/28/16 Type of Consultation: NEPHROLOGY Referring Provider: JOS FOSTER MD 24 HR Interval Summary Free Text/Dictation No acute events - no ectopy on tele - con't antiBx. ROS: No fever, no chills, no nausea, no vomiting, no diarrhea/constipation No recent weight changes No chest pain, no PND, no orthopnea No dizziness, blurred vision No thirst, no heat or cold intolerance Exam/Review of Systems Vital Signs Vitals Vital Signs Date Time Temp Pulse Resp B/P Pulse Ox O2 Delivery O2 Flow Rate FiO2 01/06/17 13:37 60 20 96 01/06/17 11:32 98.0 138/63 01/05/17 19:45 21 01/05/17 12:26 Room Air Intake and Output 01/05/17 01/05/17 01/06/17 14:59 22:59 06:59 Intake Total 400 ml 700 ml 250 ml Output Total 5 ml 400 ml 750 ml Balance 395 ml 300 ml -500 ml Exam General: WN/WD/NAD, AOx 3 HEENT: Unicetric/bandage/EOMI (follow commands) NECK: JVD elevated, no thyromegaly Lymph: no lymphadenopathy HEART: regular with no S3, II/ systolic murmur at apex LUNGS: Coarse sounds ABD: soft, NT, ND, +BS : Intact Neuro: non focal SKIN: chronic changes EXT: trace edema Results Result Diagram: 01/06/1752801/06/17528 Results 24 hrs Laboratory Tests Test 01/05/17 17:49 01/05/17 21:00 01/06/17 05:29 01/06/17 07:56 Bedside Glucose 185 83 120 White Blood Count 6.7 Red Blood Count 3.95 L Hemoglobin 8.4 L Hematocrit 29.8 L Mean Corpuscular Volume 75.4 L Mean Corpuscular Hemoglobin 21.3 L Mean Corpuscular Hemoglobin Concent 28.2 L Red Cell Distribution Width 19.9 H Platelet Count 250 Mean Platelet Volume 11.0 H Neutrophils % 74.9 Lymphocytes % 16.2 Monocytes % 7.3 Eosinophils % 1.0 Basophils % 0.3 Nucleated Red Blood Cells % 0.0 Neutrophils # 5.0 Lymphocytes # 1.1 Monocytes # 0.5 Eosinophils # 0.1 Basophils # 0.0 Nucleated Red Blood Cells # 0.0 Sodium Level 140 Potassium Level 4.1 Chloride Level 104 Carbon Dioxide Level 28 Anion Gap 12 Blood Urea Nitrogen 25 H Creatinine 1.49 H Glucose Level 145 # Calcium Level 8.4 Test 01/06/17 12:09 Bedside Glucose 182 Medications Medications Current Medications Morphine Sulfate (morphine) 4 mg Q4H PRN IV PAIN LEVEL 6-10; Start 12/23/16 at 05:00 Miscellaneous Information 1 ea NOTE XX ; Start 12/23/16 at 08:00 Glucose (Glutose) 15 gm Q15M PRN PO DECREASED GLUCOSE; Start 12/23/16 at 08:00 Glucose (Glutose) 22.5 gm Q15M PRN PO DECREASED GLUCOSE; Start 12/23/16 at 08: 00 Dextrose (D50w Syringe) 25 ml Q15M PRN IV DECREASED GLUCOSE; Start 12/23/16 at 08:00 Dextrose (D50w Syringe) 50 ml Q15M PRN IV DECREASED GLUCOSE; Start 12/23/16 at 08:00 Glucagon (Glucagen) 1 mg Q15M PRN IM DECREASED GLUCOSE; Start 12/23/16 at 08: 00 Glucose (Glutose) 15 gm Q15M PRN BUCCAL DECREASED GLUCOSE; Start 12/23/16 at 08:00 Acetaminophen (Tylenol Tab) 650 mg Q6H PRN PO PAIN AND OR ELEVATED TEMP Last administered on 12/24/16 17:40; Admin Dose 650 MG; Start 12/23/16 at 14:30 Acetaminophen/ Hydrocodone Bitart ([place] (5/325)) 1 tab Q6H PRN PO PAIN LEVEL 6 -10 Last administered on 01/06/17 04:01; Admin Dose 1 TAB; Start 12/24/16 at 23:00 Pantoprazole (Protonix Tab) 40 mg DAILY@06 PO Last administered on 01/06/17 06:18; Admin Dose 40 MG; Start 12/26/16 at 06:00 Diagnostic Test (Pha) (Accu-Chek) 1 ea 02 XX ; Start 12/26/16 at 02:00 Digoxin (Digoxin) 0.125 mg DAILY PO Last administered on 01/06/17 09:08; Admin Dose 0.125 MG; Start 12/26/16 at 09:00 Mirtazapine (Remeron) 15 mg HS PO Last administered on 01/05/17 20:57; Admin Dose 15 MG; Start 12/26/16 at 21:00 Venlafaxine HCl (Effexor Xr) 150 mg BID PO Last administered on 01/06/17 10: 11; Admin Dose 150 MG; Start 12/26/16 at 09:00 Silver Sulfadiazine (Thermazene 1% 25 Gm) 1 applic BID TOP Last administered on 01/06/17 10:11; Admin Dose 1 APPLIC; Start 12/26/16 at 21:00 Rifampin (Rifampin) 600 mg DAILY PO Last administered on 01/06/17 09:05; Admin Dose 600 MG; Start 12/27/16 at 14:00 Atorvastatin Calcium (Lipitor) 40 mg HS PO Last administered on 01/05/17 20: 58; Admin Dose 40 MG; Start 12/28/16 at 21:00 Metoprolol Succinate (Toprol Xl) 12.5 mg BID PO Last administered on 09:08; Admin Dose 12.5 MG; Start 12/28/16 at 21:30 Magnesium Hydroxide 30 ml 30 ml HS PO Last administered on 01/05/17 20:57; Admin Dose 30 ML; Start 12/29/16 at 21:00 Daptomycin/Sodium Chloride (Cubicin/NS) 100 ml @ 200 mls/hr Q48H IVPB Last administered on 01/04/17 14:52; Admin Dose 200 MLS/HR; Start 01/02/17 at 14:00 Polyethylene Glycol (Miralax) 17 gm BID PO Last administered on 01/05/17 20: 58; Admin Dose 17 GM; Start 01/02/17 at 21:00 VALE TURCIOS MD Jan 06, 2017 14:07
[2017-01-06] MEDS: DAPTOMYCIN 385 MG in SOD CHLORIDE 0.9% 100 ML IVPB SCH (14:29)
--- NOTE | 2017-01-06 16:31 | PN ---
DATE: 01/06/2017 FOLLOWUP PROGRESS NOTE CHIEF COMPLAINT: Status post debridement in the operating room, postop day #1. SUBJECTIVE: Feeling good. No complaints. OBJECTIVE: GENERAL: Awake, alert. VITAL SIGNS: Temperature 98, heart rate 68, blood pressure 138/63, respirations 18, saturation 93% on room air. LABORATORY: Sodium, potassium normal. BUN 25, creatinine decreased to 1.49; still is high. WBC 6700 with 74% neutrophils, which is normal range, hemoglobin 8.4, hematocrit 29.8. The wound is, for postop day #1, a lot of secretions, was cleansed by the nurse and the dressing was changed. Silvadene cream was applied with a dry dressing on top of it. ASSESSMENT AND PLAN: A 76-year-old gentleman was admitted with swelling and redness and pain and discharge from the anterior right side of the scalp. The culture grew MRSA. The patient got treatment on the floor with antibiotics and local care including some local debridement, eventually required extensive debridement in the operating room, was done yesterday. Necrotic tissues all were removed, and hemostasis achieved and Silvadene cream was applied with dry dressing. Dressing to be changed b.i.d. on the floor and antibiotics to be given by infectious disease according to the culture results and also considering the kidney function. I will continue to follow the patient. Dictated By: ETHEL PHAN/ALBARO Conf#: [id number] DID#: [id number] MTDD
--- NOTE | 2017-01-06 17:06 | CONS ---
Date/Time of Note Date/Time of Note DATE: 01/06/17 TIME: 17:05 Consult Date/Type/Reason Admit Date/Time Dec 23, 2016 at 02:25 Type of Consultation: ID Ordering Provider: JOS FOSTER MD Objective Vital Signs Date Time Temp Pulse Resp B/P Pulse Ox O2 Delivery O2 Flow Rate FiO2 01/06/17 16:02 50 01/06/17 15:53 98.7 20 137/65 98 01/05/17 19:45 21 01/05/17 12:26 Room Air Intake and Output 01/05/17 01/05/17 01/06/17 14:59 22:59 06:59 Intake Total 400 ml 700 ml 250 ml Output Total 5 ml 400 ml 750 ml Balance 395 ml 300 ml -500 ml Results/Medications Result Diagram: 01/06/1729 01/06/17528 Results 24 hrs Laboratory Tests Test 01/05/17 17:49 01/05/17 21:00 01/06/17 05:29 01/06/17 07:56 Bedside Glucose 185 83 120 White Blood Count 6.7 Red Blood Count 3.95 L Hemoglobin 8.4 L Hematocrit 29.8 L Mean Corpuscular Volume 75.4 L Mean Corpuscular Hemoglobin 21.3 L Mean Corpuscular Hemoglobin Concent 28.2 L Red Cell Distribution Width 19.9 H Platelet Count 250 Mean Platelet Volume 11.0 H Neutrophils % 74.9 Lymphocytes % 16.2 Monocytes % 7.3 Eosinophils % 1.0 Basophils % 0.3 Nucleated Red Blood Cells % 0.0 Neutrophils # 5.0 Lymphocytes # 1.1 Monocytes # 0.5 Eosinophils # 0.1 Basophils # 0.0 Nucleated Red Blood Cells # 0.0 Sodium Level 140 Potassium Level 4.1 Chloride Level 104 Carbon Dioxide Level 28 Anion Gap 12 Blood Urea Nitrogen 25 H Creatinine 1.49 H Glucose Level 145 # Calcium Level 8.4 Test 01/06/17 12:09 Bedside Glucose 182 Medications Current Medications Morphine Sulfate (morphine) 4 mg Q4H PRN IV PAIN LEVEL 6-10; Start 12/23/16 at 05:00 Miscellaneous Information 1 ea NOTE XX ; Start 12/23/16 at 08:00 Glucose (Glutose) 15 gm Q15M PRN PO DECREASED GLUCOSE; Start 12/23/16 at 08:00 Glucose (Glutose) 22.5 gm Q15M PRN PO DECREASED GLUCOSE; Start 12/23/16 at 08: 00 Dextrose (D50w Syringe) 25 ml Q15M PRN IV DECREASED GLUCOSE; Start 12/23/16 at 08:00 Dextrose (D50w Syringe) 50 ml Q15M PRN IV DECREASED GLUCOSE; Start 12/23/16 at 08:00 Glucagon (Glucagen) 1 mg Q15M PRN IM DECREASED GLUCOSE; Start 12/23/16 at 08: 00 Glucose (Glutose) 15 gm Q15M PRN BUCCAL DECREASED GLUCOSE; Start 12/23/16 at 08:00 Acetaminophen (Tylenol Tab) 650 mg Q6H PRN PO PAIN AND OR ELEVATED TEMP Last administered on 12/24/16 17:40; Admin Dose 650 MG; Start 12/23/16 at 14:30 Acetaminophen/ Hydrocodone Bitart ([employer] (5/325)) 1 tab Q6H PRN PO PAIN LEVEL 6 -10 Last administered on 01/06/17 04:01; Admin Dose 1 TAB; Start 12/24/16 at 23:00 Pantoprazole (Protonix Tab) 40 mg DAILY@06 PO Last administered on 01/06/17 06:18; Admin Dose 40 MG; Start 12/26/16 at 06:00 Diagnostic Test (Pha) (Accu-Chek) 1 ea 02 XX ; Start 12/26/16 at 02:00 Digoxin (Digoxin) 0.125 mg DAILY PO Last administered on 01/06/17 09:08; Admin Dose 0.125 MG; Start 12/26/16 at 09:00 Mirtazapine (Remeron) 15 mg HS PO Last administered on 01/05/17 20:57; Admin Dose 15 MG; Start 12/26/16 at 21:00 Venlafaxine HCl (Effexor Xr) 150 mg BID PO Last administered on 01/06/17 10: 11; Admin Dose 150 MG; Start 12/26/16 at 09:00 Silver Sulfadiazine (Thermazene 1% 25 Gm) 1 applic BID TOP Last administered on 01/06/17 10:11; Admin Dose 1 APPLIC; Start 12/26/16 at 21:00 Rifampin (Rifampin) 600 mg DAILY PO Last administered on 01/06/17 09:05; Admin Dose 600 MG; Start 12/27/16 at 14:00 Atorvastatin Calcium (Lipitor) 40 mg HS PO Last administered on 01/05/17 20: 58; Admin Dose 40 MG; Start 12/28/16 at 21:00 Metoprolol Succinate (Toprol Xl) 12.5 mg BID PO Last administered on 09:08; Admin Dose 12.5 MG; Start 12/28/16 at 21:30 Magnesium Hydroxide 30 ml 30 ml HS PO Last administered on 01/05/17 20:57; Admin Dose 30 ML; Start 12/29/16 at 21:00 Daptomycin/Sodium Chloride (Cubicin/NS) 100 ml @ 200 mls/hr Q48H IVPB Last administered on 01/06/17 14:29; Admin Dose 200 MLS/HR; Start 01/02/17 at 14:00 Polyethylene Glycol (Miralax) 17 gm BID PO Last administered on 01/05/17 20: 58; Admin Dose 17 GM; Start 01/02/17 at 21:00 Assessment/Plan Chief Complaint/Hosp Course SUBJECTIVE: No events overnight, alert, feels good, looks comfortable, no fevers. MICROBIOLOGY: Forehead wound grew MRSA. ANTIMICROBIALS: Rifampin, IV Daptomycin PHYSICAL EXAMINATION: GENERAL: Well-developed, elderly man in no distress. HEENT: Head atraumatic, normocephalic. Sclerae anicteric. Buccal mucosa dry. NECK: Supple. CHEST: Rise symmetrical. Breath sounds diminished to bases. HEART: S1, S2. ABDOMEN: Soft, bowel tones present. EXTREMITIES: Without cyanosis. SKIN: Dry, pale. There is erythema on the forehead. ASSESSMENT: 1. Methicillin-resistant Staphylococcus aureus cellulitis of the forehead, s/p i&d 01/05/17. 2. Hypertension. 3. Chronic obstructive pulmonary disease. 4. Ischemic cardiomyopathy. 5. Chronic kidney disease stage III. PLAN: The patient remains stable. Continue abx, wound care per surgical rec-s DW staff Problems: ILENE JUDGE NP Jan 06, 2017 17:06
[2017-01-06] MEDS: MAGNESIUM HYDROXIDE 30ML CUP PO SCH (20:38)
[2017-01-06] MEDS: MIRTAZAPINE 15 MG TAB PO SCH (20:38)
[2017-01-06] MEDS: ATORVASTATIN 40 MG TAB PO SCH (20:39)
[2017-01-07] VITALS (12 sets, daily range): BP systolic 111–136; BP diastolic 57–71; PULSE 56–72; RESP 18–20
[2017-01-07] MEDS: ALBUTEROL/IPRATROPIUM (NEB) 3 ML AMP HHN SCH ×4 (01:28→19:17)
[2017-01-07] MEDS: ACCU-CHEK XX SCH (01:30)
[2017-01-07] MEDS: PANTOPRAZOLE (EC) 40 MG TAB PO SCH (05:58)
[2017-01-07] MEDS: LEVOTHYROXINE 150 MCG TAB PO SCH (05:58)
[2017-01-07] MEDS: GLIMEPIRIDE 2 MG TAB PO SCH (07:52)
[2017-01-07] MEDS: INSULIN ASPART [NOVOLOG] 3 ML PEN SC SCH ×7 (07:57→20:54)
[2017-01-07] MEDS: POLYETHYLENE GLYCOL 17 GM PACKET PO SCH ×2 (09:00→20:53)
[2017-01-07] MEDS: SILVER SULFADIAZINE 1% 25 GM CR TOP SCH ×2 (09:00→20:54)
[2017-01-07] MEDS: DIGOXIN 0.125 MG TAB PO SCH (09:32)
[2017-01-07] MEDS: METOPROLOL (XL) 25 MG TAB PO SCH ×2 (09:32→20:54)
[2017-01-07] MEDS: VENLAFAXINE (XR) 75 MG CAP PO SCH ×2 (09:32→20:52)
--- NOTE | 2017-01-07 10:05 | PN ---
Date/Time of Note Date/Time of Note DATE: 01/07/17 TIME: 10:05 Assessment/Plan VTE Prophylaxis VTE Prophylaxis Intervention: other Lines/Catheters IV C[facility]ter Type [facility]from [facility]): [facility]ine Lock Urinary Cath still in place: No Assessment/Plan Chief Complaint/Hosp Course - Scalp cellulitis/abscess. S/p I&D 01/05. Wound cx +MRSA. Continue Daptomycin. Dr. Oliva is following in infection disease consultation. Dr. Saldivar is following in general surgery. - Ischemic cardiomyopathy with ejection fraction of 30% per last echo, continue Coreg per cardiology recs. Dr. Choudhury is following in cardiology consultation. - Bradycardia. Status post Lexiscan with no ischemia, continue telemetry monitoring. - Chronic kidney disease stage III. Monitor renal function and avoid nephrotoxic drugs. - Coronary artery disease with history of stent placement. - Chronic obstructive pulmonary disease. - Diabetes mellitus, hemoglobin A1c is 6.6, continue Amaryl and NovoLog per sliding scale. 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 Problems: Subjective 24 Hr Interval Summary Free Text/Dictation Patient has no complaints Exam/Review of Systems Vital Signs Vitals Vital Signs Date Time Temp Pulse Resp B/P Pulse Ox O2 Delivery O2 Flow Rate FiO2 01/07/17 08:00 64 01/07/17 07:48 98.0 18 131/58 99 01/07/17 01:28 21 01/05/17 12:26 Room Air Intake and Output 01/06/17 01/06/17 01/07/17 14:59 22:59 06:59 Intake Total 900 ml 120 ml Output Total 650 ml 450 ml Balance 250 ml -330 ml Exam Constitutional: well developed Head: atraumatic, normocephalic Neck: supple Respiratory: clear to auscultation Cardiovascular: regular rate and rhythm Gastrointestinal: non-tender, soft Extremities: normal pulses Results Result Diagram: 01/06/17 0529 01/06/17528 Results 24 hrs Laboratory Tests Test 01/06/17 12:09 01/06/17 17:34 01/06/17 20:25 01/07/17 07:54 Bedside Glucose 182 82 117 110 Medications Medications Current Medications Morphine Sulfate (morphine) 4 mg Q4H PRN IV PAIN LEVEL 6-10; Start 12/23/16 at 05:00 Miscellaneous Information 1 ea NOTE XX ; Start 12/23/16 at 08:00 Glucose (Glutose) 15 gm Q15M PRN PO DECREASED GLUCOSE; Start 12/23/16 at 08:00 Glucose (Glutose) 22.5 gm Q15M PRN PO DECREASED GLUCOSE; Start 12/23/16 at 08: 00 Dextrose (D50w Syringe) 25 ml Q15M PRN IV DECREASED GLUCOSE; Start 12/23/16 at 08:00 Dextrose (D50w Syringe) 50 ml Q15M PRN IV DECREASED GLUCOSE; Start 12/23/16 at 08:00 Glucagon (Glucagen) 1 mg Q15M PRN IM DECREASED GLUCOSE; Start 12/23/16 at 08: 00 Glucose (Glutose) 15 gm Q15M PRN BUCCAL DECREASED GLUCOSE; Start 12/23/16 at 08:00 Acetaminophen (Tylenol Tab) 650 mg Q6H PRN PO PAIN AND OR ELEVATED TEMP Last administered on 12/24/16 17:40; Admin Dose 650 MG; Start 12/23/16 at 14:30 Acetaminophen/ Hydrocodone Bitart ([place] (5/325)) 1 tab Q6H PRN PO PAIN LEVEL 6 -10 Last administered on 01/06/17 04:01; Admin Dose 1 TAB; Start 12/24/16 at 23:00 Pantoprazole (Protonix Tab) 40 mg DAILY@06 PO Last administered on 01/07/17 05:58; Admin Dose 40 MG; Start 12/26/16 at 06:00 Diagnostic Test (Pha) (Accu-Chek) 1 ea 02 XX ; Start 12/26/16 at 02:00 Digoxin (Digoxin) 0.125 mg DAILY PO Last administered on 01/07/17 09:32; Admin Dose 0.125 MG; Start 12/26/16 at 09:00 Mirtazapine (Remeron) 15 mg HS PO Last administered on 01/06/17 20:38; Admin Dose 15 MG; Start 12/26/16 at 21:00 Venlafaxine HCl (Effexor Xr) 150 mg BID PO Last administered on 01/07/17 09: 32; Admin Dose 150 MG; Start 12/26/16 at 09:00 Silver Sulfadiazine (Thermazene 1% 25 Gm) 1 applic BID TOP Last administered on 01/06/17 20:39; Admin Dose 1 APPLIC; Start 12/26/16 at 21:00 Rifampin (Rifampin) 600 mg DAILY PO Last administered on 01/06/17 09:05; Admin Dose 600 MG; Start 12/27/16 at 14:00 Atorvastatin Calcium (Lipitor) 40 mg HS PO Last administered on 01/06/17 20: 39; Admin Dose 40 MG; Start 12/28/16 at 21:00 Metoprolol Succinate (Toprol Xl) 12.5 mg BID PO Last administered on 09:32; Admin Dose 12.5 MG; Start 12/28/16 at 21:30 Magnesium Hydroxide 30 ml 30 ml HS PO Last administered on 01/06/17 20:38; Admin Dose 30 ML; Start 12/29/16 at 21:00 Daptomycin/Sodium Chloride (Cubicin/NS) 100 ml @ 200 mls/hr Q48H IVPB Last administered on 01/06/17 14:29; Admin Dose 200 MLS/HR; Start 01/02/17 at 14:00 Polyethylene Glycol (Miralax) 17 gm BID PO Last administered on 01/06/17 20: 39; Admin Dose 17 GM; Start 01/02/17 at 21:00 DAMIR LATIF Jan 07, 2017 10:05
--- NOTE | 2017-01-07 10:18 | CONS ---
Date/Time of Note Date/Time of Note DATE: 01/07/17 TIME: 10:11 Assessment/Plan Assessment/Plan Additional Assessment/Plan pt admitted with forehead cellulitis with self draining abscess, seen by ID, started on IV abx, noted to have Rising Cr and renal has been consulted for MELINDA on CKD 1. MELINDA on CKD Due to prerenal azotemia + ATN - Cr improved from 2.01 to 1.49, will give NS at 50 cc/hr x 500 cc, am BMP 2. MRSA forehead cellulitis with Abscess s/p Right scalp wound debridement bY G surg on 01/05/17-- still draining-pus/blood per staff- MRSA wound.ID follows 3. H/o CKD III Due to HTN 4. HTN 5. Bipolar 6. DM II Plan : IV abx vancomycin , renally dose it , Cr improved from 2.01 to 1.49 with 1liter iVF Hydration. Will give 500 NS at 50 cc x1. bmp am -BP stable Lisinopril stopped due to bump in Cr - BP controlled, will resume it at the time of discharge Renal US c/w medical renal disease, no hydronephrosis s/p Right scalp wound debridement on 01/05/17- wound care, IV a bx as per ID will follow up Dw Dr Rony Novak/octavio Consultation Date/Type/Reason Admit Date/Time Dec 23, 2016 at 02:25 Initial Consult Date 12/28/16 Type of Consultation: ID Referring Provider: JOS FOSTER MD 24 HR Interval Summary Free Text/Dictation Afebrile, Cr improved from 2.01 to 1.49 with 1liter iVF Hydration, no labs today , no new issues reported overnight by staff. Continue to monitor. Constitutional: requiring IVF Detailed Summary Respiratory: no complaints Cardiovascular: no complaints Gastrointestinal: no complaints Genitourinary: no complaints Musculoskeletal: no complaints Skin: other (scalp abcsess) Neurologic: no complaints Exam/Review of Systems Vital Signs Vitals Vital Signs Date Time Temp Pulse Resp B/P Pulse Ox O2 Delivery O2 Flow Rate FiO2 01/07/17 08:00 64 01/07/17 07:48 98.0 18 131/58 99 01/07/17 01:28 21 01/05/17 12:26 Room Air Intake and Output 01/06/17 01/06/17 01/07/17 14:59 22:59 06:59 Intake Total 900 ml 120 ml Output Total 650 ml 450 ml Balance 250 ml -330 ml Exam Constitutional: alert, oriented Psych: nl mood/affect Head: other (scalp abscess- dressing , drainage less today.) Respiratory: clear to auscultation, normal air movement Cardiovascular: nl pulses, other (s12) Gastrointestinal: non-tender, soft Musculoskeletal: nl extremities to inspection Extremities: normal pulses Neurological: nl mental status Results Result Diagram: 01/06/1752801/06/17528 Results 24 hrs Laboratory Tests Test 01/06/17 12:09 01/06/17 17:34 01/06/17 20:25 01/07/17 07:54 Bedside Glucose 182 82 117 110 Medications Medications Current Medications Morphine Sulfate (morphine) 4 mg Q4H PRN IV PAIN LEVEL 6-10; Start 12/23/16 at 05:00 Miscellaneous Information 1 ea NOTE XX ; Start 12/23/16 at 08:00 Glucose (Glutose) 15 gm Q15M PRN PO DECREASED GLUCOSE; Start 12/23/16 at 08:00 Glucose (Glutose) 22.5 gm Q15M PRN PO DECREASED GLUCOSE; Start 12/23/16 at 08: 00 Dextrose (D50w Syringe) 25 ml Q15M PRN IV DECREASED GLUCOSE; Start 12/23/16 at 08:00 Dextrose (D50w Syringe) 50 ml Q15M PRN IV DECREASED GLUCOSE; Start 12/23/16 at 08:00 Glucagon (Glucagen) 1 mg Q15M PRN IM DECREASED GLUCOSE; Start 12/23/16 at 08: 00 Glucose (Glutose) 15 gm Q15M PRN BUCCAL DECREASED GLUCOSE; Start 12/23/16 at 08:00 Acetaminophen (Tylenol Tab) 650 mg Q6H PRN PO PAIN AND OR ELEVATED TEMP Last administered on 12/24/16 17:40; Admin Dose 650 MG; Start 12/23/16 at 14:30 Acetaminophen/ Hydrocodone Bitart ([place] (5/325)) 1 tab Q6H PRN PO PAIN LEVEL 6 -10 Last administered on 01/06/17 04:01; Admin Dose 1 TAB; Start 12/24/16 at 23:00 Pantoprazole (Protonix Tab) 40 mg DAILY@06 PO Last administered on 01/07/17 05:58; Admin Dose 40 MG; Start 12/26/16 at 06:00 Diagnostic Test (Pha) (Accu-Chek) 1 ea 02 XX ; Start 12/26/16 at 02:00 Digoxin (Digoxin) 0.125 mg DAILY PO Last administered on 01/07/17 09:32; Admin Dose 0.125 MG; Start 12/26/16 at 09:00 Mirtazapine (Remeron) 15 mg HS PO Last administered on 01/06/17 20:38; Admin Dose 15 MG; Start 12/26/16 at 21:00 Venlafaxine HCl (Effexor Xr) 150 mg BID PO Last administered on 01/07/17 09: 32; Admin Dose 150 MG; Start 12/26/16 at 09:00 Silver Sulfadiazine (Thermazene 1% 25 Gm) 1 applic BID TOP Last administered on 01/06/17 20:39; Admin Dose 1 APPLIC; Start 12/26/16 at 21:00 Rifampin (Rifampin) 600 mg DAILY PO Last administered on 01/06/17 09:05; Admin Dose 600 MG; Start 12/27/16 at 14:00 Atorvastatin Calcium (Lipitor) 40 mg HS PO Last administered on 01/06/17 20: 39; Admin Dose 40 MG; Start 12/28/16 at 21:00 Metoprolol Succinate (Toprol Xl) 12.5 mg BID PO Last administered on 09:32; Admin Dose 12.5 MG; Start 12/28/16 at 21:30 Magnesium Hydroxide 30 ml 30 ml HS PO Last administered on 01/06/17 20:38; Admin Dose 30 ML; Start 12/29/16 at 21:00 Daptomycin/Sodium Chloride (Cubicin/NS) 100 ml @ 200 mls/hr Q48H IVPB Last administered on 01/06/17 14:29; Admin Dose 200 MLS/HR; Start 01/02/17 at 14:00 Polyethylene Glycol (Miralax) 17 gm BID PO Last administered on 01/06/17 20: 39; Admin Dose 17 GM; Start 01/02/17 at 21:00 SOFÍA CHU Jan 07, 2017 10:18
[2017-01-07] MEDS ORDERED: SOD CHLORIDE 0.9% 1,000 ML IV SCH (10:30)
[2017-01-07] MEDS ORDERED: SOD CHLORIDE 0.9% 500 ML IVPB SCH (10:30)
[2017-01-07] MEDS: RIFAMPIN 300 MG CAP PO SCH (10:48)
[2017-01-07] MEDS: HYDROCODONE/APAP (5/325) TAB PO PRN (14:19)
--- NOTE | 2017-01-07 15:19 | CONS ---
Date/Time of Note Date/Time of Note DATE: 01/07/17 TIME: 15:18 Assessment/Plan Assessment/Plan Additional Assessment/Plan 1. Preoperative evaluation prior to surgical intervention for scalp abscess.- negative trop x 3. No ischemia by keiry this admit. Tolerated procedure well. Con't to follow. STABLE FLUID STATUS NOW. 2. History of ischemic cardiomyopathy, last known ejection fraction approximately 40% by echo 2016. 30-35% by echo this year. No ischemia by keiry with EF underestimated. Not in CHF by exam now. BETTER fluid satus. 3. Hypertension- well Rx now. Controlled. 4. History of percutaneous transluminal coronary angioplasty and stent placement multiple times with most recent approximately 2 to 3 years prior per patient on Plavix. 5. History of transcatheter aortic valve replacement in 2016- stable by exam. 6. Scalp abscess- post op, anti-Bx now. TREATED, con' therapy. 7. Diabetes mellitus- KEEP EUGLYCEMIC. 8. Chronic obstructive pulmonary disease. 9. Ongoing tobacco usage. 10. Anemia. 11. Renal failure. 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 Consultation Date/Type/Reason Admit Date/Time Dec 23, 2016 at 02:25 Initial Consult Date 12/28/16 Type of Consultation: ID Referring Provider: JOS FOSTER MD 24 HR Interval Summary Free Text/Dictation NO acute events - BP in good range - NO CP now - will monitor clinically. ROS: No fever, no chills, no nausea, no vomiting, no diarrhea/constipation No recent weight changes No chest pain, no PND, no orthopnea No dizziness, blurred vision No thirst, no heat or cold intolerance Exam/Review of Systems Vital Signs Vitals Vital Signs Date Time Temp Pulse Resp B/P Pulse Ox O2 Delivery O2 Flow Rate FiO2 01/07/17 14:11 62 20 96 01/07/17 11:40 98.0 116/60 01/07/17 01:28 21 01/05/17 12:26 Room Air Intake and Output 01/06/17 01/06/17 01/07/17 15:00 23:00 07:00 Intake Total 900 ml 120 ml Output Total 650 ml 450 ml Balance 250 ml -330 ml Exam General: WN/WD/NAD, AOx 3 HEENT: Unicetric/BANDAGES/EOMI (follows commands) NECK: JVD elevated, no thyromegaly Lymph: no lymphadenopathy HEART: regular with no S3, II/ systolic murmur at apex LUNGS: Coarse sounds ABD: soft, NT, ND, +BS : Intact Neuro: non focal SKIN: chronic changes EXT: trace edema Results Result Diagram: 01/06/17 0501/06/17 05 Results 24 hrs Laboratory Tests Test 01/06/17 17:34 01/06/17 20:25 01/07/17 07:54 01/07/17 12:03 Bedside Glucose 82 117 110 193 Medications Medications Current Medications Morphine Sulfate (morphine) 4 mg Q4H PRN IV PAIN LEVEL 6-10; Start 12/23/16 at 05:00 Miscellaneous Information 1 ea NOTE XX ; Start 12/23/16 at 08:00 Glucose (Glutose) 15 gm Q15M PRN PO DECREASED GLUCOSE; Start 12/23/16 at 08:00 Glucose (Glutose) 22.5 gm Q15M PRN PO DECREASED GLUCOSE; Start 12/23/16 at 08: 00 Dextrose (D50w Syringe) 25 ml Q15M PRN IV DECREASED GLUCOSE; Start 12/23/16 at 08:00 Dextrose (D50w Syringe) 50 ml Q15M PRN IV DECREASED GLUCOSE; Start 12/23/16 at 08:00 Glucagon (Glucagen) 1 mg Q15M PRN IM DECREASED GLUCOSE; Start 12/23/16 at 08: 00 Glucose (Glutose) 15 gm Q15M PRN BUCCAL DECREASED GLUCOSE; Start 12/23/16 at 08:00 Acetaminophen (Tylenol Tab) 650 mg Q6H PRN PO PAIN AND OR ELEVATED TEMP Last administered on 12/24/16 17:40; Admin Dose 650 MG; Start 12/23/16 at 14:30 Acetaminophen/ Hydrocodone Bitart ([place] (5/325)) 1 tab Q6H PRN PO PAIN LEVEL 6 -10 Last administered on 01/07/17 14:19; Admin Dose 1 TAB; Start 12/24/16 at 23:00 Pantoprazole (Protonix Tab) 40 mg DAILY@06 PO Last administered on 01/07/17 05:58; Admin Dose 40 MG; Start 12/26/16 at 06:00 Diagnostic Test (Pha) (Accu-Chek) 1 ea 02 XX ; Start 12/26/16 at 02:00 Digoxin (Digoxin) 0.125 mg DAILY PO Last administered on 01/07/17 09:32; Admin Dose 0.125 MG; Start 12/26/16 at 09:00 Mirtazapine (Remeron) 15 mg HS PO Last administered on 01/06/17 20:38; Admin Dose 15 MG; Start 12/26/16 at 21:00 Venlafaxine HCl (Effexor Xr) 150 mg BID PO Last administered on 01/07/17 09: 32; Admin Dose 150 MG; Start 12/26/16 at 09:00 Silver Sulfadiazine (Thermazene 1% 25 Gm) 1 applic BID TOP Last administered on 01/07/17 09:00; Admin Dose 1 APPLIC; Start 12/26/16 at 21:00 Rifampin (Rifampin) 600 mg DAILY PO Last administered on 01/07/17 10:48; Admin Dose 600 MG; Start 12/27/16 at 14:00 Atorvastatin Calcium (Lipitor) 40 mg HS PO Last administered on 01/06/17 20: 39; Admin Dose 40 MG; Start 12/28/16 at 21:00 Metoprolol Succinate (Toprol Xl) 12.5 mg BID PO Last administered on 09:32; Admin Dose 12.5 MG; Start 12/28/16 at 21:30 Magnesium Hydroxide 30 ml 30 ml HS PO Last administered on 01/06/17 20:38; Admin Dose 30 ML; Start 12/29/16 at 21:00 Daptomycin/Sodium Chloride (Cubicin/NS) 100 ml @ 200 mls/hr Q48H IVPB Last administered on 01/06/17 14:29; Admin Dose 200 MLS/HR; Start 01/02/17 at 14:00 Polyethylene Glycol 17 gm 17 gm BID PO Last administered on 01/06/17 20:39; Admin Dose 17 GM; Start 01/02/17 at 21:00 Sodium Chloride (NS) 500 ml @ 50 mls/hr ONCE IVPB Last administered on 10:53; Admin Dose 50 MLS/HR; Start 01/07/17 at 10:30; Stop 01/07/17 at 20 :29 VALE TURCIOS MD Jan 07, 2017 15:19
--- NOTE | 2017-01-07 17:27 | CONS ---
Date/Time of Note Date/Time of Note DATE: 01/07/17 TIME: 17:23 Consultation Date/Type/Reason Admit Date/Time Dec 23, 2016 at 02:25 Initial Consult Date SUBJECTIVE: 76 y/o male being treated for scalp cellulitis and abscess. No events overnight , alert. Looks comfortable, denies fevers. VS: 117/57 P:58 R:18 SO2: 95% T: 98.0 LABS: NONE FOR TODAY MICROBIOLOGY: Forehead wound grew MRSA. SCALP WOUND CULTURE Preliminary 01/05 Organism 1 STAPHYLOCOCCUS SPECIES ANTIMICROBIALS: Rifampin, IV vancomycin. PHYSICAL EXAMINATION: GENERAL: Well-developed, elderly man in no distress. HEENT: Head atraumatic, normocephalic. Sclerae anicteric. Buccal mucosa dry. NECK: Supple. CHEST: Rise symmetrical. Breath sounds diminished to bases. HEART: S1, S2. ABDOMEN: Soft, bowel tones present. EXTREMITIES: Without cyanosis. SKIN: Dry, pale. There is erythema on the forehead. ASSESSMENT: 1. Methicillin-resistant Staphylococcus aureus cellulitis of the forehead with self- draining abscess. 2. Hypertension. 3. Chronic obstructive pulmonary disease. 4. Ischemic cardiomyopathy. 5. Chronic kidney disease stage III. PLAN: The patient remains stable. Continue abx, local wound care per surgical rec-s. Type of Consultation: ID Referring Provider: JOS FOSTER MD Exam/Review of Systems Vital Signs Vitals Vital Signs Date Time Temp Pulse Resp B/P Pulse Ox O2 Delivery O2 Flow Rate FiO2 01/07/17 16:14 98.0 58 18 117/57 95 01/07/17 01:28 21 01/05/17 12:26 Room Air Intake and Output 01/06/17 01/06/17 01/07/17 15:00 23:00 07:00 Intake Total 900 ml 120 ml Output Total 650 ml 450 ml Balance 250 ml -330 ml Results Result Diagram: 01/06/17 0529 01/06/17 0529 Results 24 hrs Laboratory Tests Test 01/06/17 17:34 01/06/17 20:25 01/07/17 07:54 01/07/17 12:03 Bedside Glucose 82 117 110 193 Medications Medications Current Medications Morphine Sulfate (morphine) 4 mg Q4H PRN IV PAIN LEVEL 6-10; Start 12/23/16 at 05:00 Miscellaneous Information 1 ea NOTE XX ; Start 12/23/16 at 08:00 Glucose (Glutose) 15 gm Q15M PRN PO DECREASED GLUCOSE; Start 12/23/16 at 08:00 Glucose (Glutose) 22.5 gm Q15M PRN PO DECREASED GLUCOSE; Start 12/23/16 at 08: 00 Dextrose (D50w Syringe) 25 ml Q15M PRN IV DECREASED GLUCOSE; Start 12/23/16 at 08:00 Dextrose (D50w Syringe) 50 ml Q15M PRN IV DECREASED GLUCOSE; Start 12/23/16 at 08:00 Glucagon (Glucagen) 1 mg Q15M PRN IM DECREASED GLUCOSE; Start 12/23/16 at 08: 00 Glucose (Glutose) 15 gm Q15M PRN BUCCAL DECREASED GLUCOSE; Start 12/23/16 at 08:00 Acetaminophen (Tylenol Tab) 650 mg Q6H PRN PO PAIN AND OR ELEVATED TEMP Last administered on 12/24/16 17:40; Admin Dose 650 MG; Start 12/23/16 at 14:30 Acetaminophen/ Hydrocodone Bitart ([place] (5/325)) 1 tab Q6H PRN PO PAIN LEVEL 6 -10 Last administered on 01/07/17 14:19; Admin Dose 1 TAB; Start 12/24/16 at 23:00 Pantoprazole (Protonix Tab) 40 mg DAILY@06 PO Last administered on 01/07/17 05:58; Admin Dose 40 MG; Start 12/26/16 at 06:00 Diagnostic Test (Pha) (Accu-Chek) 1 ea 02 XX ; Start 12/26/16 at 02:00 Digoxin (Digoxin) 0.125 mg DAILY PO Last administered on 01/07/17 09:32; Admin Dose 0.125 MG; Start 12/26/16 at 09:00 Mirtazapine (Remeron) 15 mg HS PO Last administered on 01/06/17 20:38; Admin Dose 15 MG; Start 12/26/16 at 21:00 Venlafaxine HCl (Effexor Xr) 150 mg BID PO Last administered on 01/07/17 09: 32; Admin Dose 150 MG; Start 12/26/16 at 09:00 Silver Sulfadiazine (Thermazene 1% 25 Gm) 1 applic BID TOP Last administered on 01/07/17 09:00; Admin Dose 1 APPLIC; Start 12/26/16 at 21:00 Rifampin (Rifampin) 600 mg DAILY PO Last administered on 01/07/17 10:48; Admin Dose 600 MG; Start 12/27/16 at 14:00 Atorvastatin Calcium (Lipitor) 40 mg HS PO Last administered on 01/06/17 20: 39; Admin Dose 40 MG; Start 12/28/16 at 21:00 Metoprolol Succinate (Toprol Xl) 12.5 mg BID PO Last administered on 09:32; Admin Dose 12.5 MG; Start 12/28/16 at 21:30 Magnesium Hydroxide 30 ml 30 ml HS PO Last administered on 01/06/17 20:38; Admin Dose 30 ML; Start 12/29/16 at 21:00 Daptomycin/Sodium Chloride (Cubicin/NS) 100 ml @ 200 mls/hr Q48H IVPB Last administered on 01/06/17 14:29; Admin Dose 200 MLS/HR; Start 01/02/17 at 14:00 Polyethylene Glycol 17 gm 17 gm BID PO Last administered on 01/06/17 20:39; Admin Dose 17 GM; Start 01/02/17 at 21:00 Sodium Chloride (NS) 500 ml @ 50 mls/hr ONCE IVPB Last administered on 10:53; Admin Dose 50 MLS/HR; Start 01/07/17 at 10:30; Stop 01/07/17 at 20 :29 ADELIA CARDONA Jan 07, 2017 17:27
--- NOTE | 2017-01-07 18:16 | PN ---
DATE: 01/07/2017 Postop day #2 debridement of the scalp wound in the operating room on Sunday01/05/2017. SUBJECTIVE: No complaint. OBJECTIVE: VITAL SIGNS: Stable, 98 temperature, heart rate 62, respirations 18, blood pressure 116/60, saturat ion 95% on room air. LABORATORY: No lab was done today. Dressing was changed along with the nurse, Elodia. Central p art of the wound is open to the deep layer, which is the muscular layer. The skin that was necrotic has been removed. The other part of the skin was thoroughly cleaned from previous Silvadene cream. There is no evidence of any more necrotic tissue. Started to develop, very slowly, granulation ti ssue. New layer of Silvadene cream was applied. Dry dressing and Tegaderm was applied. ASSESSMENT: This is a 76-year-old gentleman who was brought by the family to the emergency room bec ause of swelling, redness, tenderness, and discharge from the right anterior scalp wound. The cultu re grew MRSA. Patient has many other medical problems. Daily dressing with Silvadene cream was sta rted and also consultation from catering and events manager was obtained to clear the patient for operation. Yusuf mracus, the catering and events manager, after following this patient cleared the patient for anesthesia. Patient m eanwhile was getting some dressing changes and some local debridement on the floor. On 01/05/2017 w as taken to the OR, necrotic tissue was removed from the skin and subcutaneous tissue, frontalis fas william, muscle fascia, and some fibers of the frontalis. Postop to continue Silvadene cream b.i.d. and has been done. Today, I changed the dressing myself and the wound is much better than a few days a go. There is some skin loss of course. PLAN: Continue current care. The patient is on antibiotic, daptomycin and rifampin per infectious disease. Dictated By: ETHEL WRIGHT MD PS/ALBARO Conf#: [id number] DID#: [id number] CC: DAMIR LATIF MD;*EndCC*
[2017-01-07] MEDS: MAGNESIUM HYDROXIDE 30ML CUP PO SCH (20:53)
[2017-01-07] MEDS: MIRTAZAPINE 15 MG TAB PO SCH (20:53)
[2017-01-07] MEDS: ATORVASTATIN 40 MG TAB PO SCH (20:53)
[2017-01-08] VITALS (14 sets, daily range): BP systolic 106–136; BP diastolic 55–71; PULSE 53–106; RESP 18–20
[2017-01-08] MEDS: ALBUTEROL/IPRATROPIUM (NEB) 3 ML AMP HHN SCH ×4 (01:09→19:40)
[2017-01-08] MEDS: ACCU-CHEK XX SCH (01:19)
[2017-01-08] MEDS: PANTOPRAZOLE (EC) 40 MG TAB PO SCH (05:34)
[2017-01-08] MEDS: LEVOTHYROXINE 150 MCG TAB PO SCH (06:01)
[2017-01-08 07:35] LABS: ABNORMAL IP MESSAGE 1; BASOPHILS % 0.4 % (0.0-2.0); EOSINOPHILS # 0.2 10^3/ul (0.0-0.5); EOSINOPHILS % 2.1 % (0.0-7.0); HEMATOCRIT 31.5 % (42.0-52.0); HEMOGLOBIN 8.8 g/dl (14.0-18.0); LYMPHOCYTES # 1.3 10^3/ul (0.8-2.9); LYMPHOCYTES % 17.9 % (15.0-51.0); MEAN CORPUSCULAR HEMOGLOBIN 21.3 pg (29.0-33.0); MEAN CORPUSCULAR HGB CONC 27.9 g/dl (32.0-37.0); MEAN CORPUSCULAR VOLUME 76.3 fl (82.0-101.0); MONOCYTE # 0.6 10^3/ul (0.3-0.9); NEUTROPHIL # 4.9 10^3/ul (1.6-7.5); NEUTROPHILS % 70.3 % (39.0-77.0); PLATELET COUNT 242 10^3/UL (140-415); POSITIVE DIFF @See below; RED BLOOD COUNT 4.13 10^6/ul (4.70-6.10); RED CELL DISTRIBUTION WIDTH 20.4 % (11.5-14.5)
[2017-01-08] MEDS: INSULIN ASPART [NOVOLOG] 3 ML PEN SC SCH ×7 (07:44→20:24)
[2017-01-08 07:58] LABS: CALCIUM 8.9 mg/dl (8.4-10.2); CREATININE 1.4 mg/dl (0.61-1.24); POTASSIUM 4.6 mmol/L (3.5-5.1)
[2017-01-08] MEDS: RIFAMPIN 300 MG CAP PO SCH (08:02)
[2017-01-08] MEDS: VENLAFAXINE (XR) 75 MG CAP PO SCH ×2 (08:02→21:00)
[2017-01-08] MEDS: METOPROLOL (XL) 25 MG TAB PO SCH ×2 (08:03→21:01)
[2017-01-08] MEDS: POLYETHYLENE GLYCOL 17 GM PACKET PO SCH ×3 (08:04→21:00)
[2017-01-08] MEDS: GLIMEPIRIDE 2 MG TAB PO SCH ×3 (08:05→08:16)
[2017-01-08] MEDS: DIGOXIN 0.125 MG TAB PO SCH (08:06)
[2017-01-08] MEDS: SILVER SULFADIAZINE 1% 25 GM CR TOP SCH ×3 (08:11→21:02)
--- NOTE | 2017-01-08 12:40 | CONS ---
Date/Time of Note Date/Time of Note DATE: 01/08/17 TIME: 12:37 Consult Date/Type/Reason Admit Date/Time Dec 23, 2016 at 02:25 Type of Consultation: ID Ordering Provider: JOS FOSTER MD Objective Vital Signs Date Time Temp Pulse Resp B/P Pulse Ox O2 Delivery O2 Flow Rate FiO2 01/08/17 12:09 53 01/08/17 11:40 97.8 20 116/55 98 01/08/17 07:57 21 01/05/17 12:26 Room Air Intake and Output 01/07/17 01/07/17 01/08/17 15:00 23:00 07:00 Intake Total 500 ml 250 ml Output Total 600 ml 450 ml Balance -100 ml -200 ml Results/Medications Result Diagram: 01/08/17 0636 01/08/17 0650 Results 24 hrs Laboratory Tests Test 01/07/17 17:22 01/07/17 20:48 01/08/17 06:36 01/08/17 06:50 Bedside Glucose 78 102 White Blood Count 7.0 Red Blood Count 4.13 L Hemoglobin 8.8 L Hematocrit 31.5 L Mean Corpuscular Volume 76.3 L Mean Corpuscular Hemoglobin 21.3 L Mean Corpuscular Hemoglobin Concent 27.9 L Red Cell Distribution Width 20.4 H Platelet Count 242 Mean Platelet Volume 10.0 Neutrophils % 70.3 Lymphocytes % 17.9 Monocytes % 9.0 Eosinophils % 2.1 Basophils % 0.4 Nucleated Red Blood Cells % 0.0 Neutrophils # 4.9 Lymphocytes # 1.3 Monocytes # 0.6 Eosinophils # 0.2 Basophils # 0.0 Nucleated Red Blood Cells # 0.0 Sodium Level 140 Potassium Level 4.6 Chloride Level 108 Carbon Dioxide Level 25 Anion Gap 12 Blood Urea Nitrogen 21 H Creatinine 1.40 H Glucose Level 100 Calcium Level 8.9 Test 01/08/17 07:39 01/08/17 11:51 Bedside Glucose 117 165 Medications Current Medications Morphine Sulfate (morphine) 4 mg Q4H PRN IV PAIN LEVEL 6-10; Start 12/23/16 at 05:00 Miscellaneous Information 1 ea NOTE XX ; Start 12/23/16 at 08:00 Glucose (Glutose) 15 gm Q15M PRN PO DECREASED GLUCOSE; Start 12/23/16 at 08:00 Glucose (Glutose) 22.5 gm Q15M PRN PO DECREASED GLUCOSE; Start 12/23/16 at 08: 00 Dextrose (D50w Syringe) 25 ml Q15M PRN IV DECREASED GLUCOSE; Start 12/23/16 at 08:00 Dextrose (D50w Syringe) 50 ml Q15M PRN IV DECREASED GLUCOSE; Start 12/23/16 at 08:00 Glucagon (Glucagen) 1 mg Q15M PRN IM DECREASED GLUCOSE; Start 12/23/16 at 08: 00 Glucose (Glutose) 15 gm Q15M PRN BUCCAL DECREASED GLUCOSE; Start 12/23/16 at 08:00 Acetaminophen (Tylenol Tab) 650 mg Q6H PRN PO PAIN AND OR ELEVATED TEMP Last administered on 12/24/16 17:40; Admin Dose 650 MG; Start 12/23/16 at 14:30 Acetaminophen/ Hydrocodone Bitart (Alpine (5/325)) 1 tab Q6H PRN PO PAIN LEVEL 6 -10 Last administered on 01/07/17 14:19; Admin Dose 1 TAB; Start 12/24/16 at 23:00 Pantoprazole (Protonix Tab) 40 mg DAILY@06 PO Last administered on 01/08/17 05:34; Admin Dose 40 MG; Start 12/26/16 at 06:00 Diagnostic Test (Pha) (Accu-Chek) 1 ea 02 XX ; Start 12/26/16 at 02:00 Digoxin (Digoxin) 0.125 mg DAILY PO Last administered on 01/07/17 09:32; Admin Dose 0.125 MG; Start 12/26/16 at 09:00 Mirtazapine (Remeron) 15 mg HS PO Last administered on 01/07/17 20:53; Admin Dose 15 MG; Start 12/26/16 at 21:00 Venlafaxine HCl (Effexor Xr) 150 mg BID PO Last administered on 01/08/17 08: 02; Admin Dose 150 MG; Start 12/26/16 at 09:00 Silver Sulfadiazine (Thermazene 1% 25 Gm) 1 applic BID TOP Last administered on 01/08/17 08:11; Admin Dose 1 APPLIC; Start 12/26/16 at 21:00 Rifampin (Rifampin) 600 mg DAILY PO Last administered on 01/08/17 08:02; Admin Dose 600 MG; Start 12/27/16 at 14:00 Atorvastatin Calcium (Lipitor) 40 mg HS PO Last administered on 01/07/17 20: 53; Admin Dose 40 MG; Start 12/28/16 at 21:00 Metoprolol Succinate (Toprol Xl) 12.5 mg BID PO Last administered on 20:54; Admin Dose 12.5 MG; Start 12/28/16 at 21:30 Magnesium Hydroxide 30 ml 30 ml HS PO Last administered on 01/07/17 20:53; Admin Dose 30 ML; Start 12/29/16 at 21:00 Daptomycin/Sodium Chloride (Cubicin/NS) 100 ml @ 200 mls/hr Q48H IVPB Last administered on 01/06/17 14:29; Admin Dose 200 MLS/HR; Start 01/02/17 at 14:00 ; Stop 01/08/17 at 23:45 Polyethylene Glycol (Miralax) 17 gm BID PO Last administered on 01/06/17 20: 39; Admin Dose 17 GM; Start 01/02/17 at 21:00 Assessment/Plan Chief Complaint/Hosp Course SUBJECTIVE: No events overnight, alert, feels good, looks comfortable, no fevers. MICROBIOLOGY: Forehead wound cx + MRSA. ANTIMICROBIALS: Rifampin, IV Daptomycin PHYSICAL EXAMINATION: GENERAL: Well-developed, elderly man in no distress. HEENT: Head atraumatic, normocephalic. Sclerae anicteric. Buccal mucosa dry. NECK: Supple. CHEST: Rise symmetrical. Breath sounds diminished to bases. HEART: S1, S2. ABDOMEN: Soft, bowel tones present. EXTREMITIES: Without cyanosis. SKIN: Dry, pale, forehead dsg intact. ASSESSMENT: 1. Methicillin-resistant Staphylococcus aureus cellulitis of the forehead, s/p i&d 01/05/17. 2. Hypertension. 3. Chronic obstructive pulmonary disease. 4. Ischemic cardiomyopathy. 5. Chronic kidney disease stage III. PLAN: The patient remains stable. Per dw surgery the wound was very deep and had necrotic tissue, recommend IV abx for another 2 weeks, will change Daptomycin to Clindamycin DW staff Problems: ILENE JUDGE NP Jan 08, 2017 12:39
--- NOTE | 2017-01-08 12:50 | PN ---
Date/Time of Note Date/Time of Note DATE: 01/08/17 TIME: 12:49 Assessment/Plan VTE Prophylaxis VTE Prophylaxis Intervention: SCD's Lines/Catheters IV C[facility]ter Type (from [facility]): Peripheral IV Urinary Cath still in place: No Assessment/Plan Chief Complaint/Hosp Course Assessment/Plan - Scalp cellulitis/abscess. S/p I&D 01/05. Wound cx +MRSA. Continue Clindamycin. Dr. Oliva is following in infection disease consultation. Dr. Saldivar is following in general surgery. - Ischemic cardiomyopathy with ejection fraction of 30% per last echo, continue Coreg per cardiology recs. Dr. Choudhury is following in cardiology consultation. - Bradycardia. Status post Lexiscan with no ischemia, continue telemetry monitoring. - Chronic kidney disease stage III. Monitor renal function and avoid nephrotoxic drugs. - Coronary artery disease with history of stent placement. - Chronic obstructive pulmonary disease. - Diabetes mellitus, hemoglobin A1c is 6.6, continue Amaryl and NovoLog per sliding scale. 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 Further recommendations based on clinical course. Plan of care discussed with Dr. Giron Problems: Exam/Review of Systems Vital Signs Vitals Vital Signs Date Time Temp Pulse Resp B/P Pulse Ox O2 Delivery O2 Flow Rate FiO2 01/08/17 12:09 53 01/08/17 11:40 97.8 20 116/55 98 01/08/17 07:57 21 01/05/17 12:26 Room Air Intake and Output 01/07/17 01/07/17 01/08/17 15:00 23:00 07:00 Intake Total 500 ml 250 ml Output Total 600 ml 450 ml Balance -100 ml -200 ml Exam Constitutional: alert, oriented Respiratory: normal air movement Cardiovascular: nl pulses Gastrointestinal: non-tender, soft Extremities: normal pulses Neurological: nl mental status Skin: other (scalp wound) Results Result Diagram: 01/08/17 0636 01/08/17 0650 Results 24 hrs Laboratory Tests Test 01/07/17 17:22 01/07/17 20:48 01/08/17 06:36 01/08/17 06:50 Bedside Glucose 78 102 White Blood Count 7.0 Red Blood Count 4.13 L Hemoglobin 8.8 L Hematocrit 31.5 L Mean Corpuscular Volume 76.3 L Mean Corpuscular Hemoglobin 21.3 L Mean Corpuscular Hemoglobin Concent 27.9 L Red Cell Distribution Width 20.4 H Platelet Count 242 Mean Platelet Volume 10.0 Neutrophils % 70.3 Lymphocytes % 17.9 Monocytes % 9.0 Eosinophils % 2.1 Basophils % 0.4 Nucleated Red Blood Cells % 0.0 Neutrophils # 4.9 Lymphocytes # 1.3 Monocytes # 0.6 Eosinophils # 0.2 Basophils # 0.0 Nucleated Red Blood Cells # 0.0 Sodium Level 140 Potassium Level 4.6 Chloride Level 108 Carbon Dioxide Level 25 Anion Gap 12 Blood Urea Nitrogen 21 H Creatinine 1.40 H Glucose Level 100 Calcium Level 8.9 Test 01/08/17 07:39 01/08/17 11:51 Bedside Glucose 117 165 Medications Medications Current Medications Morphine Sulfate (morphine) 4 mg Q4H PRN IV PAIN LEVEL 6-10; Start 12/23/16 at 05:00 Miscellaneous Information 1 ea NOTE XX ; Start 12/23/16 at 08:00 Glucose (Glutose) 15 gm Q15M PRN PO DECREASED GLUCOSE; Start 12/23/16 at 08:00 Glucose (Glutose) 22.5 gm Q15M PRN PO DECREASED GLUCOSE; Start 12/23/16 at 08: 00 Dextrose (D50w Syringe) 25 ml Q15M PRN IV DECREASED GLUCOSE; Start 12/23/16 at 08:00 Dextrose (D50w Syringe) 50 ml Q15M PRN IV DECREASED GLUCOSE; Start 12/23/16 at 08:00 Glucagon (Glucagen) 1 mg Q15M PRN IM DECREASED GLUCOSE; Start 12/23/16 at 08: 00 Glucose (Glutose) 15 gm Q15M PRN BUCCAL DECREASED GLUCOSE; Start 12/23/16 at 08:00 Acetaminophen (Tylenol Tab) 650 mg Q6H PRN PO PAIN AND OR ELEVATED TEMP Last administered on 12/24/16 17:40; Admin Dose 650 MG; Start 12/23/16 at 14:30 Acetaminophen/ Hydrocodone Bitart (Stanley (5/325)) 1 tab Q6H PRN PO PAIN LEVEL 6 -10 Last administered on 01/07/17 14:19; Admin Dose 1 TAB; Start 12/24/16 at 23:00 Pantoprazole (Protonix Tab) 40 mg DAILY@06 PO Last administered on 01/08/17 05:34; Admin Dose 40 MG; Start 12/26/16 at 06:00 Diagnostic Test (Pha) (Accu-Chek) 1 ea 02 XX ; Start 12/26/16 at 02:00 Digoxin (Digoxin) 0.125 mg DAILY PO Last administered on 01/07/17 09:32; Admin Dose 0.125 MG; Start 12/26/16 at 09:00 Mirtazapine (Remeron) 15 mg HS PO Last administered on 01/07/17 20:53; Admin Dose 15 MG; Start 12/26/16 at 21:00 Venlafaxine HCl (Effexor Xr) 150 mg BID PO Last administered on 01/08/17 08: 02; Admin Dose 150 MG; Start 12/26/16 at 09:00 Silver Sulfadiazine (Thermazene 1% 25 Gm) 1 applic BID TOP Last administered on 01/08/17 08:11; Admin Dose 1 APPLIC; Start 12/26/16 at 21:00 Rifampin (Rifampin) 600 mg DAILY PO Last administered on 01/08/17 08:02; Admin Dose 600 MG; Start 12/27/16 at 14:00 Atorvastatin Calcium (Lipitor) 40 mg HS PO Last administered on 01/07/17 20: 53; Admin Dose 40 MG; Start 12/28/16 at 21:00 Metoprolol Succinate (Toprol Xl) 12.5 mg BID PO Last administered on 20:54; Admin Dose 12.5 MG; Start 12/28/16 at 21:30 Magnesium Hydroxide 30 ml 30 ml HS PO Last administered on 01/07/17 20:53; Admin Dose 30 ML; Start 12/29/16 at 21:00 Daptomycin/Sodium Chloride (Cubicin/NS) 100 ml @ 200 mls/hr Q48H IVPB Last administered on 01/06/17 14:29; Admin Dose 200 MLS/HR; Start 01/02/17 at 14:00 ; Stop 01/08/17 at 16:00 Polyethylene Glycol 17 gm 17 gm BID PO Last administered on 01/06/17 20:39; Admin Dose 17 GM; Start 01/02/17 at 21:00 Clindamycin HCl/ Dextrose (Cleocin 600 Mg/ D5W (Pmx)) 50 ml @ 50 mls/hr Q8 IVPB ; Start 01/08/17 at 22:00 Lactobacillus Acidophilus (Florajen3 Capsule) 1 each BID PO ; Start 01/08/17 at 21:00 SELMA ELMORE Jan 08, 2017 12:50
[2017-01-08] MEDS: DAPTOMYCIN 385 MG in SOD CHLORIDE 0.9% 100 ML IVPB SCH (13:38)
--- NOTE | 2017-01-08 13:55 | CONS ---
Date/Time of Note Date/Time of Note DATE: 01/08/17 TIME: 13:51 Assessment/Plan Assessment/Plan Chief Complaint/Hosp Course IMPRESSION: 1. Preoperative evaluation prior to surgical intervention for scalp abscess.- negative trop x 3. No ischemia by keiry this admit. Thus moderate CV risk, ok to proceed with debridement of scalp abscess. Now post-op s/p I+D 2. History of ischemic cardiomyopathy, last known ejection fraction approximately 40% by echo 2016. 30-35% by echo this year. No ischemia by keiry with EF underestimated. 3. Hypertension. 4. History of percutaneous transluminal coronary angioplasty and stent placement multiple times with most recent approximately 2 to 3 years prior per patient on Plavix. 5. History of transcatheter aortic valve replacement in 2016. 6. Scalp abscess. 7. Diabetes mellitus. 8. Chronic obstructive pulmonary disease. 9. Ongoing tobacco usage. 10. Anemia. 11. Renal failure. 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 Recc: -Tele -local wound care -Continue abx;'s -Continue BB -Start hydralazine afterload reduction -resume plavix when able Problems: Consultation Date/Type/Reason Admit Date/Time Dec 23, 2016 at 02:25 Initial Consult Date 12/27/2016 Type of Consultation: cardiology Reason for Consultation cardiomyopathy Referring Provider: JOS FOSTER MD Exam/Review of Systems Vital Signs Vitals Vital Signs Date Time Temp Pulse Resp B/P Pulse Ox O2 Delivery O2 Flow Rate FiO2 01/08/17 12:09 53 01/08/17 11:40 97.8 20 116/55 98 01/08/17 07:57 21 01/05/17 12:26 Room Air Intake and Output 01/07/17 01/07/17 01/08/17 14:59 22:59 06:59 Intake Total 500 ml 250 ml Output Total 600 ml 450 ml Balance -100 ml -200 ml Exam Review of Systems: CONSTITUTIONAL: No fevers, chills. PULMONARY: No sob CARDIOVASCULAR: No chest pain/palpitations GASTROINTESTINAL: No nausea/vomiting. GENITOURINARY: No hematuria/dysuria. MUSCULOSKELETAL: No myagias/arthalgias. PSYCHIATRIC: The patient denies depression. NEUROLOGIC: No weakness Constitutional: alert, oriented Psych: no complaints Head: normocephalic, other (dressing covering scalp) ENMT: mucosa pink and moist Neck: jvd (9 cm water), supple Respiratory: clear to auscultation Cardiovascular: regular rate and rhythm Gastrointestinal: soft Musculoskeletal: muscle tone (normal) Extremities: edema (none) Results Result Diagram: 01/08/17 0636 01/08/17 0650 Results 24 hrs Laboratory Tests Test 01/07/17 17:22 01/07/17 20:48 01/08/17 06:36 01/08/17 06:50 Bedside Glucose 78 102 White Blood Count 7.0 Red Blood Count 4.13 L Hemoglobin 8.8 L Hematocrit 31.5 L Mean Corpuscular Volume 76.3 L Mean Corpuscular Hemoglobin 21.3 L Mean Corpuscular Hemoglobin Concent 27.9 L Red Cell Distribution Width 20.4 H Platelet Count 242 Mean Platelet Volume 10.0 Neutrophils % 70.3 Lymphocytes % 17.9 Monocytes % 9.0 Eosinophils % 2.1 Basophils % 0.4 Nucleated Red Blood Cells % 0.0 Neutrophils # 4.9 Lymphocytes # 1.3 Monocytes # 0.6 Eosinophils # 0.2 Basophils # 0.0 Nucleated Red Blood Cells # 0.0 Sodium Level 140 Potassium Level 4.6 Chloride Level 108 Carbon Dioxide Level 25 Anion Gap 12 Blood Urea Nitrogen 21 H Creatinine 1.40 H Glucose Level 100 Calcium Level 8.9 Test 01/08/17 07:39 01/08/17 11:51 Bedside Glucose 117 165 Medications Medications Current Medications Morphine Sulfate (morphine) 4 mg Q4H PRN IV PAIN LEVEL 6-10; Start 12/23/16 at 05:00 Miscellaneous Information 1 ea NOTE XX ; Start 12/23/16 at 08:00 Glucose (Glutose) 15 gm Q15M PRN PO DECREASED GLUCOSE; Start 12/23/16 at 08:00 Glucose (Glutose) 22.5 gm Q15M PRN PO DECREASED GLUCOSE; Start 12/23/16 at 08: 00 Dextrose (D50w Syringe) 25 ml Q15M PRN IV DECREASED GLUCOSE; Start 12/23/16 at 08:00 Dextrose (D50w Syringe) 50 ml Q15M PRN IV DECREASED GLUCOSE; Start 12/23/16 at 08:00 Glucagon (Glucagen) 1 mg Q15M PRN IM DECREASED GLUCOSE; Start 12/23/16 at 08: 00 Glucose (Glutose) 15 gm Q15M PRN BUCCAL DECREASED GLUCOSE; Start 12/23/16 at 08:00 Acetaminophen (Tylenol Tab) 650 mg Q6H PRN PO PAIN AND OR ELEVATED TEMP Last administered on 12/24/16 17:40; Admin Dose 650 MG; Start 12/23/16 at 14:30 Acetaminophen/ Hydrocodone Bitart (Busy (5/325)) 1 tab Q6H PRN PO PAIN LEVEL 6 -10 Last administered on 01/07/17 14:19; Admin Dose 1 TAB; Start 12/24/16 at 23:00 Pantoprazole (Protonix Tab) 40 mg DAILY@06 PO Last administered on 01/08/17 05:34; Admin Dose 40 MG; Start 12/26/16 at 06:00 Diagnostic Test (Pha) (Accu-Chek) 1 ea 02 XX ; Start 12/26/16 at 02:00 Digoxin (Digoxin) 0.125 mg DAILY PO Last administered on 01/07/17 09:32; Admin Dose 0.125 MG; Start 12/26/16 at 09:00 Mirtazapine (Remeron) 15 mg HS PO Last administered on 01/07/17 20:53; Admin Dose 15 MG; Start 12/26/16 at 21:00 Venlafaxine HCl (Effexor Xr) 150 mg BID PO Last administered on 01/08/17 08: 02; Admin Dose 150 MG; Start 12/26/16 at 09:00 Silver Sulfadiazine (Thermazene 1% 25 Gm) 1 applic BID TOP Last administered on 01/08/17 08:11; Admin Dose 1 APPLIC; Start 12/26/16 at 21:00 Rifampin (Rifampin) 600 mg DAILY PO Last administered on 01/08/17 08:02; Admin Dose 600 MG; Start 12/27/16 at 14:00 Atorvastatin Calcium (Lipitor) 40 mg HS PO Last administered on 01/07/17 20: 53; Admin Dose 40 MG; Start 12/28/16 at 21:00 Metoprolol Succinate (Toprol Xl) 12.5 mg BID PO Last administered on 20:54; Admin Dose 12.5 MG; Start 12/28/16 at 21:30 Magnesium Hydroxide 30 ml 30 ml HS PO Last administered on 11/12/17at 20:53; Admin Dose 30 ML; Start 12/29/16 at 21:00 Daptomycin/Sodium Chloride (Cubicin/NS) 100 ml @ 200 mls/hr Q48H IVPB Last administered on 01/08/17 13:38; Admin Dose 200 MLS/HR; Start 01/02/17 at 14:00 ; Stop 01/08/17 at 16:00 Polyethylene Glycol 17 gm 17 gm BID PO Last administered on 01/06/17 20:39; Admin Dose 17 GM; Start 01/02/17 at 21:00 Clindamycin HCl/ Dextrose (Cleocin 600 Mg/ D5W (Pmx)) 50 ml @ 50 mls/hr Q8 IVPB ; Start 01/08/17 at 22:00 Lactobacillus Acidophilus (Florajen3 Capsule) 1 each BID PO ; Start 01/08/17 at 21:00 JACLYN RODRIGUEZ 13, 2017 13:55
--- NOTE | 2017-01-08 18:01 | PN ---
DATE: 01/08/2017 Status post wide debridement in the operating room 4 days ago. SUBJECTIVE: No new complaints. The microbiology report indicates that the cultures from the OR from the wound grew MRSA. OBJECTIVE: GENERAL: Alert, awake, oriented. VITAL SIGNS: Temperature 97.8, heart rate 78, respirations 20, blood pressure 106/55, saturation 98% room air. LABORATORY DATA: WBC 7000 with 70% neutrophils. Hemoglobin 8.8, hematocrit 31.5. Chemistry: Sodium, potassium normal. BUN 21, creatinine 1.4075. Dressing needs to be changed b.i.d. At this time it is being changed and new Silvadene cream is being applied. With regard to gauze changes as follows: 1. After removing the dressing, clean the wound with hydrogen peroxide. 2. Irrigate the wound with normal saline solution. 3. Dried up. 4. Apply Silvadene cream. 5. Put dry dressing. ASSESSMENT AND PLAN: A 76-year-old male who presented with cellulitis and abscess of the right forehead with culture grew MRSA. Receive antibiotics while on the floor a couple of times. Local debridement was done on the floor. The patient was cleared from cardiology point of view and then was taken to the OR and more extensive debridement was performed. PLAN: 1. At this time, infectious disease added clindamycin to the previous daptomycin and rifampin 2. The patient needs local care of the wound with hydrogen peroxide, saline, and silvadine application. We will continue same treatment until the wound starts granulating and looks clean, then we can discharge the patient on oral antibiotics. Dictated By: ETHEL WRIGHT MD PS/ALBARO Conf#: [id number] DID#: [id number] CC: LIBIA PIMENTEL MD;*EndCC* MTDD
--- NOTE | 2017-01-08 20:59 | CONS ---
Date/Time of Note Date/Time of Note DATE: 01/08/17 TIME: 20:58 Assessment/Plan Assessment/Plan Chief Complaint/Hosp Course pt admitted with forehead cellulitis with self draining abscess, seen by ID, started on IV abx, noted to have Rising Cr and renal has been consulted for MELINDA on CKD Problems: Additional Assessment/Plan 1. MELINDA on CKD Due to prerenal azotemia + ATN 2. MRSA forehead cellulitis with Abscess s/p Right scalp wound debridement bY G surg on 01/05/17-- still draining-pus/blood per staff- MRSA wound.ID follows 3. H/o CKD III Due to HTN 4. HTN 5. Bipolar 6. DM II Plan : IV abx vancomycin , renally dose it , Cr improved from 2.01 to 1.4 -BP stable Lisinopril stopped due to bump in Cr - BP controlled, will resume it at the time of discharge Renal US c/w medical renal disease, no hydronephrosis s/p Right scalp wound debridement on 01/05/17- wound cx grew MRSA- wound care, IV a bx as per ID will follow up Consultation Date/Type/Reason Admit Date/Time Dec 23, 2016 at 02:25 Initial Consult Date 12/28/16 Type of Consultation: NEPHROLOGY Referring Provider: JOS FOSTER MD 24 HR Interval Summary Free Text/Dictation Cr improved to 1.4, BP stable Exam/Review of Systems Vital Signs Vitals Vital Signs Date Time Temp Pulse Resp B/P Pulse Ox O2 Delivery O2 Flow Rate FiO2 01/08/17 20:00 60 01/08/17 19:55 98.5 18 120/61 97 01/08/17 19:41 21 01/05/17 12:26 Room Air Intake and Output 01/07/17 01/07/17 01/08/17 15:00 23:00 07:00 Intake Total 500 ml 250 ml Output Total 600 ml 450 ml Balance -100 ml -200 ml Exam GENERAL: Well-developed, elderly man in no distress. HEENT: Head atraumatic, normocephalic. Sclerae anicteric. Buccal mucosa dry. NECK: Supple. CHEST: Rise symmetrical. Breath sounds diminished to bases. HEART: S1, S2. ABDOMEN: Soft, bowel tones present. EXTREMITIES: Without cyanosis. SKIN: Dry, pale, forehead dsg intact. Results Result Diagram: 01/08/17 0636 01/08/17 0650 Results 24 hrs Laboratory Tests Test 01/08/17 06:36 01/08/17 06:50 01/08/17 07:39 01/08/17 11:51 White Blood Count 7.0 Red Blood Count 4.13 L Hemoglobin 8.8 L Hematocrit 31.5 L Mean Corpuscular Volume 76.3 L Mean Corpuscular Hemoglobin 21.3 L Mean Corpuscular Hemoglobin Concent 27.9 L Red Cell Distribution Width 20.4 H Platelet Count 242 Mean Platelet Volume 10.0 Neutrophils % 70.3 Lymphocytes % 17.9 Monocytes % 9.0 Eosinophils % 2.1 Basophils % 0.4 Nucleated Red Blood Cells % 0.0 Neutrophils # 4.9 Lymphocytes # 1.3 Monocytes # 0.6 Eosinophils # 0.2 Basophils # 0.0 Nucleated Red Blood Cells # 0.0 Sodium Level 140 Potassium Level 4.6 Chloride Level 108 Carbon Dioxide Level 25 Anion Gap 12 Blood Urea Nitrogen 21 H Creatinine 1.40 H Glucose Level 100 Calcium Level 8.9 Bedside Glucose 117 165 Test 01/08/17 17:11 01/08/17 19:57 Bedside Glucose 126 113 Medications Medications Current Medications Morphine Sulfate (morphine) 4 mg Q4H PRN IV PAIN LEVEL 6-10; Start 12/23/16 at 05:00 Miscellaneous Information 1 ea NOTE XX ; Start 12/23/16 at 08:00 Glucose (Glutose) 15 gm Q15M PRN PO DECREASED GLUCOSE; Start 12/23/16 at 08:00 Glucose (Glutose) 22.5 gm Q15M PRN PO DECREASED GLUCOSE; Start 12/23/16 at 08: 00 Dextrose (D50w Syringe) 25 ml Q15M PRN IV DECREASED GLUCOSE; Start 12/23/16 at 08:00 Dextrose (D50w Syringe) 50 ml Q15M PRN IV DECREASED GLUCOSE; Start 12/23/16 at 08:00 Glucagon (Glucagen) 1 mg Q15M PRN IM DECREASED GLUCOSE; Start 12/23/16 at 08: 00 Glucose (Glutose) 15 gm Q15M PRN BUCCAL DECREASED GLUCOSE; Start 12/23/16 at 08:00 Acetaminophen (Tylenol Tab) 650 mg Q6H PRN PO PAIN AND OR ELEVATED TEMP Last administered on 12/24/16 17:40; Admin Dose 650 MG; Start 12/23/16 at 14:30 Acetaminophen/ Hydrocodone Bitart (Gilbert (5/325)) 1 tab Q6H PRN PO PAIN LEVEL 6 -10 Last administered on 01/07/17 14:19; Admin Dose 1 TAB; Start 12/24/16 at 23:00 Pantoprazole (Protonix Tab) 40 mg DAILY@06 PO Last administered on 01/08/17 05:34; Admin Dose 40 MG; Start 12/26/16 at 06:00 Diagnostic Test (Pha) (Accu-Chek) 1 ea 02 XX ; Start 12/26/16 at 02:00 Digoxin (Digoxin) 0.125 mg DAILY PO Last administered on 01/07/17 09:32; Admin Dose 0.125 MG; Start 12/26/16 at 09:00 Mirtazapine (Remeron) 15 mg HS PO Last administered on 01/07/17 20:53; Admin Dose 15 MG; Start 12/26/16 at 21:00 Venlafaxine HCl (Effexor Xr) 150 mg BID PO Last administered on 01/08/17 08: 02; Admin Dose 150 MG; Start 12/26/16 at 09:00 Silver Sulfadiazine (Thermazene 1% 25 Gm) 1 applic BID TOP Last administered on 01/08/17 08:11; Admin Dose 1 APPLIC; Start 12/26/16 at 21:00 Rifampin (Rifampin) 600 mg DAILY PO Last administered on 01/08/17 08:02; Admin Dose 600 MG; Start 12/27/16 at 14:00 Atorvastatin Calcium (Lipitor) 40 mg HS PO Last administered on 01/07/17 20: 53; Admin Dose 40 MG; Start 12/28/16 at 21:00 Metoprolol Succinate (Toprol Xl) 12.5 mg BID PO Last administered on 20:54; Admin Dose 12.5 MG; Start 12/28/16 at 21:30 Magnesium Hydroxide (Milk Of Mag) 30 ml HS PO Last administered on 01/07/17 20:53; Admin Dose 30 ML; Start 12/29/16 at 21:00 Polyethylene Glycol 17 gm 17 gm BID PO Last administered on 01/06/17 20:39; Admin Dose 17 GM; Start 01/02/17 at 21:00 Clindamycin HCl/ Dextrose (Cleocin 600 Mg/ D5W (Pmx)) 50 ml @ 50 mls/hr Q8 IVPB ; Start 01/08/17 at 22:00 Lactobacillus Acidophilus (Florajen3 Capsule) 1 each BID PO ; Start 01/08/17 at 21:00 Hydralazine HCl (Apresoline) 10 mg Q8 PO Last administered on 01/08/17t 14:14 ; Admin Dose 10 MG; Start 01/08/17 at 14:00 Hydrogen Peroxide (Hydrogen Peroxide) 1 applic Q12 TOP ; Start 01/08/17 at 21: 00 Silver Sulfadiazine (Thermazene 1% 25 Gm) 1 applic Q12 TOP ; Start 01/08/17 at 21:00 MIHAI JOSEPH MD Jan 08, 2017 20:59
[2017-01-08] MEDS: MAGNESIUM HYDROXIDE 30ML CUP PO SCH (21:00)
[2017-01-08] MEDS: L ACIDOPHIL/B LACTIS/B LONGUM CAPSULE PO SCH (21:01)
[2017-01-08] MEDS: ATORVASTATIN 40 MG TAB PO SCH (21:01)
[2017-01-08] MEDS: MIRTAZAPINE 15 MG TAB PO SCH (21:01)
[2017-01-08] MEDS: HYDROGEN PEROXIDE 118 ML TOP SCH (21:03)
[2017-01-08] MEDS: CLINDAMYCIN 600 MG/D5W (PMX) 50 ML IVPB SCH (21:07)
[2017-01-09] VITALS (12 sets, daily range): BP systolic 100–114; BP diastolic 55–82; PULSE 61–75; RESP 18–20
[2017-01-09] MEDS: ACCU-CHEK XX SCH (02:00)
[2017-01-09] MEDS: ALBUTEROL/IPRATROPIUM (NEB) 3 ML AMP HHN SCH ×4 (02:53→19:59)
[2017-01-09] MEDS: HYDROCODONE/APAP (5/325) TAB PO PRN (05:01)
[2017-01-09] MEDS: CLINDAMYCIN 600 MG/D5W (PMX) 50 ML IVPB SCH ×3 (05:02→22:21)
[2017-01-09] MEDS: PANTOPRAZOLE (EC) 40 MG TAB PO SCH (05:03)
[2017-01-09] MEDS: LEVOTHYROXINE 150 MCG TAB PO SCH (06:07)
[2017-01-09 07:24] LABS: ABNORMAL IP MESSAGE 1; BASOPHILS % 0.4 % (0.0-2.0); EOSINOPHILS # 0.2 10^3/ul (0.0-0.5); HEMATOCRIT 31.1 % (42.0-52.0); HEMOGLOBIN 8.9 g/dl (14.0-18.0); LYMPHOCYTES # 1.1 10^3/ul (0.8-2.9); LYMPHOCYTES % 15.8 % (15.0-51.0); MEAN CORPUSCULAR HEMOGLOBIN 21.8 pg (29.0-33.0); MEAN CORPUSCULAR HGB CONC 28.6 g/dl (32.0-37.0); MEAN CORPUSCULAR VOLUME 76.2 fl (82.0-101.0); MONOCYTE # 0.5 10^3/ul (0.3-0.9); NEUTROPHIL # 4.9 10^3/ul (1.6-7.5); NEUTROPHILS % 72.5 % (39.0-77.0); PLATELET COUNT 230 10^3/UL (140-415); POSITIVE DIFF @See below; RED BLOOD COUNT 4.08 10^6/ul (4.70-6.10); RED CELL DISTRIBUTION WIDTH 20.4 % (11.5-14.5); WHITE BLOOD COUNT 6.8 10^3/ul (4.8-10.8)
[2017-01-09 07:47] LABS: CALCIUM 8.7 mg/dl (8.4-10.2); CREATININE 1.49 mg/dl (0.61-1.24); POTASSIUM 5.4 mmol/L (3.5-5.1)
[2017-01-09] MEDS: INSULIN ASPART [NOVOLOG] 3 ML PEN SC SCH ×7 (07:51→22:20)
[2017-01-09] MEDS: GLIMEPIRIDE 2 MG TAB PO SCH (07:53)
[2017-01-09] MEDS: HYDROGEN PEROXIDE 118 ML TOP SCH ×2 (08:37→22:23)
[2017-01-09] MEDS: SILVER SULFADIAZINE 1% 25 GM CR TOP SCH ×2 (08:37→22:23)
[2017-01-09] MEDS: POLYETHYLENE GLYCOL 17 GM PACKET PO SCH ×3 (08:38→22:32)
[2017-01-09] MEDS: RIFAMPIN 300 MG CAP PO SCH (08:38)
[2017-01-09] MEDS: L ACIDOPHIL/B LACTIS/B LONGUM CAPSULE PO SCH ×2 (08:38→22:20)
[2017-01-09] MEDS: METOPROLOL (XL) 25 MG TAB PO SCH ×2 (08:39→22:26)
[2017-01-09] MEDS: VENLAFAXINE (XR) 75 MG CAP PO SCH ×2 (08:39→22:32)
[2017-01-09] MEDS: DIGOXIN 0.125 MG TAB PO SCH (10:40)
--- NOTE | 2017-01-09 11:36 | CONS ---
Date/Time of Note Date/Time of Note DATE: 01/09/17 TIME: 11:35 Assessment/Plan Assessment/Plan Additional Assessment/Plan 1. Preoperative evaluation prior to surgical intervention for scalp abscess.- negative trop x 3. No ischemia by keiry this admit. Tolerated procedure well. Con't to follow. STABLE FLUID STATUS NOW. NO CP now. 2. History of ischemic cardiomyopathy, last known ejection fraction approximately 40% by echo 2016. 30-35% by echo this year. No ischemia by keiry with EF underestimated. Not in CHF by exam now. BETTER fluid satus. 3. Hypertension- well Rx now. Controlled. WELL Rx. 4. History of percutaneous transluminal coronary angioplasty and stent placement multiple times with most recent approximately 2 to 3 years prior per patient on Plavix. 5. History of transcatheter aortic valve replacement in 2016- stable by exam. 6. Scalp abscess- post op, anti-Bx now. TREATED, con' therapy. 7. Diabetes mellitus- KEEP EUGLYCEMIC. 8. Chronic obstructive pulmonary disease. 9. Ongoing tobacco usage. 10. Anemia. 11. Renal failure. 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 Consultation Date/Type/Reason Admit Date/Time Dec 23, 2016 at 02:25 Initial Consult Date 12/28/16 Type of Consultation: NEPHROLOGY Referring Provider: JOS FOSTER MD 24 HR Interval Summary Free Text/Dictation NO acute events - occasional APC on tele - stable overall. ROS: No fever, no chills, no nausea, no vomiting, no diarrhea/constipation No recent weight changes No chest pain, no PND, no orthopnea No dizziness, blurred vision No thirst, no heat or cold intolerance Exam/Review of Systems Vital Signs Vitals Vital Signs Date Time Temp Pulse Resp B/P Pulse Ox O2 Delivery O2 Flow Rate FiO2 01/09/17 08:50 79 18 98 21 01/09/17 07:55 98.0 114/57 01/05/17 12:26 Room Air Intake and Output 01/08/17 01/08/17 01/09/17 14:59 22:59 06:59 Intake Total 100 ml 800 ml 200 ml Output Total 1200 ml 600 ml Balance 100 ml -400 ml -400 ml Exam General: WN/WD/NAD, AOx 2-3 HEENT: Unicetric/bandage/EOMI (follows commands) NECK: JVD elevated, no thyromegaly Lymph: no lymphadenopathy HEART: regular with no S3, II/ systolic murmur at apex LUNGS: Coarse sounds ABD: soft, NT, ND, +BS : Intact Neuro: non focal SKIN: chronic changes EXT: trace edema Results Result Diagram: 01/09/17 0655 01/09/17 0654 Results 24 hrs Laboratory Tests Test 01/08/17 11:51 01/08/17 17:11 01/08/17 19:57 01/09/17 06:54 Bedside Glucose 165 126 113 Sodium Level 142 Potassium Level 5.4 H Chloride Level 107 Carbon Dioxide Level 26 Anion Gap 14 Blood Urea Nitrogen 23 H Creatinine 1.49 H Glucose Level 121 Calcium Level 8.7 Test 01/09/17 06:55 01/09/17 07:50 White Blood Count 6.8 Red Blood Count 4.08 L Hemoglobin 8.9 L Hematocrit 31.1 L Mean Corpuscular Volume 76.2 L Mean Corpuscular Hemoglobin 21.8 L Mean Corpuscular Hemoglobin Concent 28.6 L Red Cell Distribution Width 20.4 H Platelet Count 230 Mean Platelet Volume 10.0 Neutrophils % 72.5 Lymphocytes % 15.8 Monocytes % 8.0 Eosinophils % 3.0 Basophils % 0.4 Nucleated Red Blood Cells % 0.0 Neutrophils # 4.9 Lymphocytes # 1.1 Monocytes # 0.5 Eosinophils # 0.2 Basophils # 0.0 Nucleated Red Blood Cells # 0.0 Bedside Glucose 133 Medications Medications Current Medications Morphine Sulfate (morphine) 4 mg Q4H PRN IV PAIN LEVEL 6-10; Start 12/23/16 at 05:00 Miscellaneous Information 1 ea NOTE XX ; Start 12/23/16 at 08:00 Glucose (Glutose) 15 gm Q15M PRN PO DECREASED GLUCOSE; Start 12/23/16 at 08:00 Glucose (Glutose) 22.5 gm Q15M PRN PO DECREASED GLUCOSE; Start 12/23/16 at 08: 00 Dextrose (D50w Syringe) 25 ml Q15M PRN IV DECREASED GLUCOSE; Start 12/23/16 at 08:00 Dextrose (D50w Syringe) 50 ml Q15M PRN IV DECREASED GLUCOSE; Start 12/23/16 at 08:00 Glucagon (Glucagen) 1 mg Q15M PRN IM DECREASED GLUCOSE; Start 12/23/16 at 08: 00 Glucose (Glutose) 15 gm Q15M PRN BUCCAL DECREASED GLUCOSE; Start 12/23/16 at 08:00 Acetaminophen (Tylenol Tab) 650 mg Q6H PRN PO PAIN AND OR ELEVATED TEMP Last administered on 12/24/16 17:40; Admin Dose 650 MG; Start 12/23/16 at 14:30 Acetaminophen/ Hydrocodone Bitart ([place] (5/325)) 1 tab Q6H PRN PO PAIN LEVEL 6 -10 Last administered on 01/09/17 05:01; Admin Dose 1 TAB; Start 12/24/16 at 23:00 Pantoprazole (Protonix Tab) 40 mg DAILY@06 PO Last administered on 01/09/17 05:03; Admin Dose 40 MG; Start 12/26/16 at 06:00 Diagnostic Test (Pha) (Accu-Chek) 1 ea 02 XX ; Start 12/26/16 at 02:00 Digoxin (Digoxin) 0.125 mg DAILY PO Last administered on 01/09/17 10:40; Admin Dose 0.125 MG; Start 12/26/16 at 09:00 Mirtazapine (Remeron) 15 mg HS PO Last administered on 01/08/17 21:01; Admin Dose 15 MG; Start 12/26/16 at 21:00 Venlafaxine HCl (Effexor Xr) 150 mg BID PO Last administered on 01/09/17 08: 39; Admin Dose 150 MG; Start 12/26/16 at 09:00 Rifampin (Rifampin) 600 mg DAILY PO Last administered on 01/09/17 08:38; Admin Dose 600 MG; Start 12/27/16 at 14:00 Atorvastatin Calcium (Lipitor) 40 mg HS PO Last administered on 01/08/17 21: 01; Admin Dose 40 MG; Start 12/28/16 at 21:00 Metoprolol Succinate (Toprol Xl) 12.5 mg BID PO Last administered on 08:39; Admin Dose 12.5 MG; Start 12/28/16 at 21:30 Magnesium Hydroxide (Milk Of Mag) 30 ml HS PO Last administered on 01/07/17 20:53; Admin Dose 30 ML; Start 12/29/16 at 21:00 Polyethylene Glycol 17 gm 17 gm BID PO Last administered on 01/09/17 08:38; Admin Dose 17 GM; Start 01/02/17 at 21:00 Clindamycin HCl/ Dextrose (Cleocin 600 Mg/ D5W (Pmx)) 50 ml @ 50 mls/hr Q8 IVPB Last administered on 01/09/17 05:02; Admin Dose 50 MLS/HR; Start 01/08/17 at 22:00 Lactobacillus Acidophilus (Florajen3 Capsule) 1 each BID PO Last administered on 01/09/17 08:38; Admin Dose 1 EACH; Start 01/08/17 at 21:00 Hydralazine HCl (Apresoline) 10 mg Q8 PO Last administered on 01/09/17 05:01 ; Admin Dose 10 MG; Start 01/08/17 at 14:00 Hydrogen Peroxide (Hydrogen Peroxide) 1 applic Q12 TOP Last administered on 08:37; Admin Dose 1 APPLIC; Start 01/08/17 at 21:00 Silver Sulfadiazine (Thermazene 1% 25 Gm) 1 applic Q12 TOP Last administered on 01/09/17 08:37; Admin Dose 1 APPLIC; Start 01/08/17 at 21:00 VALE TURCIOS MD Jan 09, 2017 11:36
--- NOTE | 2017-01-09 13:20 | CONS ---
Date/Time of Note Date/Time of Note DATE: 01/09/17 TIME: 13:18 Consult Date/Type/Reason Admit Date/Time Dec 23, 2016 at 02:25 Type of Consultation: id Ordering Provider: JOS FOSTER MD Objective Vital Signs Date Time Temp Pulse Resp B/P Pulse Ox O2 Delivery O2 Flow Rate FiO2 01/09/17 12:07 62 20 110/55 98 01/09/17 12:06 98.0 01/09/17 08:50 21 01/05/17 12:26 Room Air Intake and Output 01/08/17 01/08/17 01/09/17 15:00 23:00 07:00 Intake Total 100 ml 800 ml 200 ml Output Total 1200 ml 600 ml Balance 100 ml -400 ml -400 ml Results/Medications Result Diagram: 01/09/17 0655 01/09/17 0654 Results 24 hrs Laboratory Tests Test 01/08/17 17:11 01/08/17 19:57 01/09/17 06:54 01/09/17 06:55 Bedside Glucose 126 113 Sodium Level 142 Potassium Level 5.4 H Chloride Level 107 Carbon Dioxide Level 26 Anion Gap 14 Blood Urea Nitrogen 23 H Creatinine 1.49 H Glucose Level 121 Calcium Level 8.7 White Blood Count 6.8 Red Blood Count 4.08 L Hemoglobin 8.9 L Hematocrit 31.1 L Mean Corpuscular Volume 76.2 L Mean Corpuscular Hemoglobin 21.8 L Mean Corpuscular Hemoglobin Concent 28.6 L Red Cell Distribution Width 20.4 H Platelet Count 230 Mean Platelet Volume 10.0 Neutrophils % 72.5 Lymphocytes % 15.8 Monocytes % 8.0 Eosinophils % 3.0 Basophils % 0.4 Nucleated Red Blood Cells % 0.0 Neutrophils # 4.9 Lymphocytes # 1.1 Monocytes # 0.5 Eosinophils # 0.2 Basophils # 0.0 Nucleated Red Blood Cells # 0.0 Test 01/09/17 07:50 01/09/17 11:57 Bedside Glucose 133 194 Medications Current Medications Morphine Sulfate (morphine) 4 mg Q4H PRN IV PAIN LEVEL 6-10; Start 12/23/16 at 05:00 Miscellaneous Information 1 ea NOTE XX ; Start 12/23/16 at 08:00 Glucose (Glutose) 15 gm Q15M PRN PO DECREASED GLUCOSE; Start 12/23/16 at 08:00 Glucose (Glutose) 22.5 gm Q15M PRN PO DECREASED GLUCOSE; Start 12/23/16 at 08: 00 Dextrose (D50w Syringe) 25 ml Q15M PRN IV DECREASED GLUCOSE; Start 12/23/16 at 08:00 Dextrose (D50w Syringe) 50 ml Q15M PRN IV DECREASED GLUCOSE; Start 12/23/16 at 08:00 Glucagon (Glucagen) 1 mg Q15M PRN IM DECREASED GLUCOSE; Start 12/23/16 at 08: 00 Glucose (Glutose) 15 gm Q15M PRN BUCCAL DECREASED GLUCOSE; Start 12/23/16 at 08:00 Acetaminophen (Tylenol Tab) 650 mg Q6H PRN PO PAIN AND OR ELEVATED TEMP Last administered on 12/24/16 17:40; Admin Dose 650 MG; Start 12/23/16 at 14:30 Acetaminophen/ Hydrocodone Bitart ([place] (5/325)) 1 tab Q6H PRN PO PAIN LEVEL 6 -10 Last administered on 01/09/17 05:01; Admin Dose 1 TAB; Start 12/24/16 at 23:00 Pantoprazole (Protonix Tab) 40 mg DAILY@06 PO Last administered on 01/09/17 05:03; Admin Dose 40 MG; Start 12/26/16 at 06:00 Diagnostic Test (Pha) (Accu-Chek) 1 ea 02 XX ; Start 12/26/16 at 02:00 Digoxin (Digoxin) 0.125 mg DAILY PO Last administered on 01/09/17 10:40; Admin Dose 0.125 MG; Start 12/26/16 at 09:00 Mirtazapine (Remeron) 15 mg HS PO Last administered on 01/08/17 21:01; Admin Dose 15 MG; Start 12/26/16 at 21:00 Venlafaxine HCl (Effexor Xr) 150 mg BID PO Last administered on 01/09/17 08: 39; Admin Dose 150 MG; Start 12/26/16 at 09:00 Rifampin (Rifampin) 600 mg DAILY PO Last administered on 01/09/17 08:38; Admin Dose 600 MG; Start 12/27/16 at 14:00 Atorvastatin Calcium (Lipitor) 40 mg HS PO Last administered on 01/08/17 21: 01; Admin Dose 40 MG; Start 12/28/16 at 21:00 Metoprolol Succinate (Toprol Xl) 12.5 mg BID PO Last administered on 08:39; Admin Dose 12.5 MG; Start 12/28/16 at 21:30 Magnesium Hydroxide (Milk Of Mag) 30 ml HS PO Last administered on 01/07/17 20:53; Admin Dose 30 ML; Start 12/29/16 at 21:00 Polyethylene Glycol 17 gm 17 gm BID PO Last administered on 01/09/17 08:38; Admin Dose 17 GM; Start 01/02/17 at 21:00 Clindamycin HCl/ Dextrose (Cleocin 600 Mg/ D5W (Pmx)) 50 ml @ 50 mls/hr Q8 IVPB Last administered on 01/09/17 05:02; Admin Dose 50 MLS/HR; Start 01/08/17 at 22:00 Lactobacillus Acidophilus (Florajen3 Capsule) 1 each BID PO Last administered on 01/09/17 08:38; Admin Dose 1 EACH; Start 01/08/17 at 21:00 Hydralazine HCl (Apresoline) 10 mg Q8 PO Last administered on 01/09/17 05:01 ; Admin Dose 10 MG; Start 01/08/17 at 14:00 Hydrogen Peroxide (Hydrogen Peroxide) 1 applic Q12 TOP Last administered on 08:37; Admin Dose 1 APPLIC; Start 01/08/17 at 21:00 Silver Sulfadiazine (Thermazene 1% 25 Gm) 1 applic Q12 TOP Last administered on 01/09/17 08:37; Admin Dose 1 APPLIC; Start 01/08/17 at 21:00 Assessment/Plan Chief Complaint/Hosp Course SUBJECTIVE: No events overnight, looks comfortable, no fevers. MICROBIOLOGY: Forehead wound cx + MRSA. ANTIMICROBIALS: Clindamycin IV PHYSICAL EXAMINATION: GENERAL: Well-developed, elderly man in no distress. HEENT: Head atraumatic, normocephalic. Sclerae anicteric. Buccal mucosa dry. NECK: Supple. CHEST: Rise symmetrical. Breath sounds diminished to bases. HEART: S1, S2. ABDOMEN: Soft, bowel tones present. EXTREMITIES: Without cyanosis. SKIN: Dry, pale, forehead dsg intact. ASSESSMENT: 1. Methicillin-resistant Staphylococcus aureus cellulitis and abscess with necrosis of the forehead, s/p i&d 01/05/17. 2. Hypertension. 3. Chronic obstructive pulmonary disease. 4. Ischemic cardiomyopathy. 5. Chronic kidney disease stage III. PLAN: The patient remains stable. Continue abx for another 2 weeks, local wound care per surgical rec-s [facility] staff Problems: ILENE JUDGE NP Jan 09, 2017 13:20
[2017-01-09] MEDS ORDERED: DAPTOMYCIN 385 MG in SOD CHLORIDE 0.9% 100 ML IVPB SCH (14:00)
--- NOTE | 2017-01-09 17:58 | PN ---
Date/Time of Note Date/Time of Note DATE: 01/09/17 TIME: 17:56 Assessment/Plan VTE Prophylaxis VTE Prophylaxis Intervention: SCD's Lines/Catheters IV [facility] Peripheral IV Urinary Cath still in place: No Assessment/Plan Chief Complaint/Hosp Course No acute events overnight, patient sitting in bed eating dinner, sinus rhythm on with frequent PVCs on telemetry monitoring, continue current wound care and antibiotics, monitor electrolytes Assessment/Plan - Scalp cellulitis/abscess. S/p I&D 01/05. Wound cx +MRSA. Continue Clindamycin. Dr. Oliva is following in infection disease consultation. Dr. Saldivar is following in general surgery. - Ischemic cardiomyopathy with ejection fraction of 30% per last echo, continue Coreg per cardiology recs. Dr. Choudhury is following in cardiology consultation. - Bradycardia. Status post Lexiscan with no ischemia, continue telemetry monitoring. - Chronic kidney disease stage III. Monitor renal function and avoid nephrotoxic drugs. - Coronary artery disease with history of stent placement. - Chronic obstructive pulmonary disease. - Diabetes mellitus, hemoglobin A1c is 6.6, continue Amaryl and NovoLog per sliding scale. 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 Further recommendations based on clinical course. Plan of care discussed with Dr. Giron Problems: Exam/Review of Systems Vital Signs Vitals Vital Signs Date Time Temp Pulse Resp B/P Pulse Ox O2 Delivery O2 Flow Rate FiO2 01/09/17 16:02 98.0 64 20 113/57 98 01/09/17 14:49 21 01/05/17 12:26 Room Air Intake and Output 01/08/17 01/08/17 01/09/17 15:00 23:00 07:00 Intake Total 100 ml 800 ml 200 ml Output Total 1200 ml 600 ml Balance 100 ml -400 ml -400 ml Exam Constitutional: alert, oriented Respiratory: normal air movement Cardiovascular: nl pulses Gastrointestinal: non-tender, soft Extremities: normal pulses Neurological: nl mental status Skin: other (scalp wound) Results Result Diagram: 01/09/17 0655 01/09/17 0654 Results 24 hrs Laboratory Tests Test 01/08/17 19:57 01/09/17 06:54 01/09/17 06:55 01/09/17 07:50 Bedside Glucose 113 133 Sodium Level 142 Potassium Level 5.4 H Chloride Level 107 Carbon Dioxide Level 26 Anion Gap 14 Blood Urea Nitrogen 23 H Creatinine 1.49 H Glucose Level 121 Calcium Level 8.7 White Blood Count 6.8 Red Blood Count 4.08 L Hemoglobin 8.9 L Hematocrit 31.1 L Mean Corpuscular Volume 76.2 L Mean Corpuscular Hemoglobin 21.8 L Mean Corpuscular Hemoglobin Concent 28.6 L Red Cell Distribution Width 20.4 H Platelet Count 230 Mean Platelet Volume 10.0 Neutrophils % 72.5 Lymphocytes % 15.8 Monocytes % 8.0 Eosinophils % 3.0 Basophils % 0.4 Nucleated Red Blood Cells % 0.0 Neutrophils # 4.9 Lymphocytes # 1.1 Monocytes # 0.5 Eosinophils # 0.2 Basophils # 0.0 Nucleated Red Blood Cells # 0.0 Test 01/09/17 11:57 01/09/17 17:08 Bedside Glucose 194 85 Medications Medications Current Medications Morphine Sulfate (morphine) 4 mg Q4H PRN IV PAIN LEVEL 6-10; Start 12/23/16 at 05:00 Miscellaneous Information 1 ea NOTE XX ; Start 12/23/16 at 08:00 Glucose (Glutose) 15 gm Q15M PRN PO DECREASED GLUCOSE; Start 12/23/16 at 08:00 Glucose (Glutose) 22.5 gm Q15M PRN PO DECREASED GLUCOSE; Start 12/23/16 at 08: 00 Dextrose (D50w Syringe) 25 ml Q15M PRN IV DECREASED GLUCOSE; Start 12/23/16 at 08:00 Dextrose (D50w Syringe) 50 ml Q15M PRN IV DECREASED GLUCOSE; Start 12/23/16 at 08:00 Glucagon (Glucagen) 1 mg Q15M PRN IM DECREASED GLUCOSE; Start 12/23/16 at 08: 00 Glucose (Glutose) 15 gm Q15M PRN BUCCAL DECREASED GLUCOSE; Start 12/23/16 at 08:00 Acetaminophen (Tylenol Tab) 650 mg Q6H PRN PO PAIN AND OR ELEVATED TEMP Last administered on 12/24/16 17:40; Admin Dose 650 MG; Start 12/23/16 at 14:30 Acetaminophen/ Hydrocodone Bitart ([place] (5/325)) 1 tab Q6H PRN PO PAIN LEVEL 6 -10 Last administered on 01/09/17 05:01; Admin Dose 1 TAB; Start 12/24/16 at 23:00 Pantoprazole (Protonix Tab) 40 mg DAILY@06 PO Last administered on 01/09/17 05:03; Admin Dose 40 MG; Start 12/26/16 at 06:00 Diagnostic Test (Pha) (Accu-Chek) 1 ea 02 XX ; Start 12/26/16 at 02:00 Digoxin (Digoxin) 0.125 mg DAILY PO Last administered on 01/09/17 10:40; Admin Dose 0.125 MG; Start 12/26/16 at 09:00 Mirtazapine (Remeron) 15 mg HS PO Last administered on 01/08/17 21:01; Admin Dose 15 MG; Start 12/26/16 at 21:00 Venlafaxine HCl (Effexor Xr) 150 mg BID PO Last administered on 01/09/17 08: 39; Admin Dose 150 MG; Start 12/26/16 at 09:00 Rifampin (Rifampin) 600 mg DAILY PO Last administered on 01/09/17 08:38; Admin Dose 600 MG; Start 12/27/16 at 14:00 Atorvastatin Calcium (Lipitor) 40 mg HS PO Last administered on 01/08/17 21: 01; Admin Dose 40 MG; Start 12/28/16 at 21:00 Metoprolol Succinate (Toprol Xl) 12.5 mg BID PO Last administered on 08:39; Admin Dose 12.5 MG; Start 12/28/16 at 21:30 Magnesium Hydroxide (Milk Of Mag) 30 ml HS PO Last administered on 01/07/17 20:53; Admin Dose 30 ML; Start 12/29/16 at 21:00 Polyethylene Glycol 17 gm 17 gm BID PO Last administered on 01/09/17 08:38; Admin Dose 17 GM; Start 01/02/17 at 21:00 Clindamycin HCl/ Dextrose (Cleocin 600 Mg/ D5W (Pmx)) 50 ml @ 50 mls/hr Q8 IVPB Last administered on 01/09/17 13:34; Admin Dose 50 MLS/HR; Start 01/08/17 at 22:00 Lactobacillus Acidophilus (Florajen3 Capsule) 1 each BID PO Last administered on 01/09/17 08:38; Admin Dose 1 EACH; Start 01/08/17 at 21:00 Hydralazine HCl (Apresoline) 10 mg Q8 PO Last administered on 01/09/17 13:39 ; Admin Dose 10 MG; Start 01/08/17 at 14:00 Hydrogen Peroxide (Hydrogen Peroxide) 1 applic Q12 TOP Last administered on 08:37; Admin Dose 1 APPLIC; Start 01/08/17 at 21:00 Silver Sulfadiazine (Thermazene 1% 25 Gm) 1 applic Q12 TOP Last administered on 01/09/17 08:37; Admin Dose 1 APPLIC; Start 01/08/17 at 21:00 SELMA ELMORE Jan 09, 2017 17:58
--- NOTE | 2017-01-09 18:17 | PN ---
DATE: 01/09/2017 SUBJECTIVE: Feels good. No complaints. OBJECTIVE: GENERAL: Alert, awake, oriented. VITAL SIGNS: Temperature 98, heart rate 64, respirations 20, blood pressure 113 /57, saturation 98% on room air. LABORATORY DATA: Today: Sodium 142, potassium 5.4, respectively. BUN 23, creatinine 1.49, borderline high. Calcium 8.7. WBC 6800 with 72% neutrophils, hemoglobin 8.9, hematocrit 31.1. Wound appears auto cleaner now that they are using hydrogen peroxide and irrigation with normal saline silvadine , Follow that with a dry dressing. This is supposed to be done b.i.d. The patient is to continue antibiotics. His pathology is back as noted. ASSESSMENT: A 76-year-old gentleman who presented with methicillin-resistant Staphylococcus aureus wound infection on the right forehead area with a lot of necrosis of the skin and subcutaneous tissue. Local debridement on the floor and also in the operating room was performed. Now, the wound is clean and patient is getting appropriate antibiotics. There is slight kidney failure with creatinine 1.49. BUN is slightly increased to 23, managed by lacer and tier. Infectious disease also on board. PLAN: Continue current care, antibiotics appropriately and local treatment of the wound b.i.d. Dictated By: ETHEL PHAN/ALBARO Conf#: [id number] DID#: [id number]
--- NOTE | 2017-01-09 19:43 | CONS ---
Date/Time of Note Date/Time of Note DATE: 01/09/17 TIME: 19:42 Assessment/Plan Assessment/Plan Chief Complaint/Hosp Course pt admitted with forehead cellulitis with self draining abscess, seen by ID, started on IV abx, noted to have Rising Cr and renal has been consulted for MELINDA on CKD Problems: Additional Assessment/Plan 1. MELINDA on CKD Due to prerenal azotemia + ATN 2. MRSA forehead cellulitis with Abscess s/p Right scalp wound debridement bY G surg on 01/05/17-- still draining-pus/blood per staff- MRSA wound.ID follows 3. H/o CKD III Due to HTN 4. HTN 5. Bipolar 6. DM II Plan : IV abx vancomycin , renally dose it , Cr improved from 2.01 to 1.49, K 5.4 today -BP stable Lisinopril stopped due to bump in Cr - BP controlled, will resume it at the time of discharge Renal US c/w medical renal disease, no hydronephrosis s/p Right scalp wound debridement on 01/05/17- wound cx grew MRSA- wound care, IV a bx as per ID will follow up Consultation Date/Type/Reason Admit Date/Time Dec 23, 2016 at 02:25 Initial Consult Date 12/28/16 Type of Consultation: NEPHROLOGY Referring Provider: JOS FOSTER MD 24 HR Interval Summary Free Text/Dictation K 5.4, Cr 1.49, BP stable, afebrile, Exam/Review of Systems Vital Signs Vitals Vital Signs Date Time Temp Pulse Resp B/P Pulse Ox O2 Delivery O2 Flow Rate FiO2 01/09/17 16:02 98.0 64 20 113/57 98 01/09/17 14:49 21 01/05/17 12:26 Room Air Intake and Output 01/08/17 01/08/17 01/09/17 15:00 23:00 07:00 Intake Total 100 ml 800 ml 200 ml Output Total 1200 ml 600 ml Balance 100 ml -400 ml -400 ml Exam GENERAL: Well-developed, elderly man in no distress. HEENT: Head atraumatic, normocephalic. Sclerae anicteric. Buccal mucosa dry. NECK: Supple. CHEST: Rise symmetrical. Breath sounds diminished to bases. HEART: S1, S2. ABDOMEN: Soft, bowel tones present. EXTREMITIES: Without cyanosis. SKIN: Dry, pale, forehead dsg intact. Results Result Diagram: 01/09/17 0655 01/09/17 0654 Results 24 hrs Laboratory Tests Test 01/08/17 19:57 01/09/17 06:54 01/09/17 06:55 01/09/17 07:50 Bedside Glucose 113 133 Sodium Level 142 Potassium Level 5.4 H Chloride Level 107 Carbon Dioxide Level 26 Anion Gap 14 Blood Urea Nitrogen 23 H Creatinine 1.49 H Glucose Level 121 Calcium Level 8.7 White Blood Count 6.8 Red Blood Count 4.08 L Hemoglobin 8.9 L Hematocrit 31.1 L Mean Corpuscular Volume 76.2 L Mean Corpuscular Hemoglobin 21.8 L Mean Corpuscular Hemoglobin Concent 28.6 L Red Cell Distribution Width 20.4 H Platelet Count 230 Mean Platelet Volume 10.0 Neutrophils % 72.5 Lymphocytes % 15.8 Monocytes % 8.0 Eosinophils % 3.0 Basophils % 0.4 Nucleated Red Blood Cells % 0.0 Neutrophils # 4.9 Lymphocytes # 1.1 Monocytes # 0.5 Eosinophils # 0.2 Basophils # 0.0 Nucleated Red Blood Cells # 0.0 Test 01/09/17 11:57 01/09/17 17:08 Bedside Glucose 194 85 Medications Medications Current Medications Morphine Sulfate (morphine) 4 mg Q4H PRN IV PAIN LEVEL 6-10; Start 12/23/16 at 05:00 Miscellaneous Information 1 ea NOTE XX ; Start 12/23/16 at 08:00 Glucose (Glutose) 15 gm Q15M PRN PO DECREASED GLUCOSE; Start 12/23/16 at 08:00 Glucose (Glutose) 22.5 gm Q15M PRN PO DECREASED GLUCOSE; Start 12/23/16 at 08: 00 Dextrose (D50w Syringe) 25 ml Q15M PRN IV DECREASED GLUCOSE; Start 12/23/16 at 08:00 Dextrose (D50w Syringe) 50 ml Q15M PRN IV DECREASED GLUCOSE; Start 12/23/16 at 08:00 Glucagon (Glucagen) 1 mg Q15M PRN IM DECREASED GLUCOSE; Start 12/23/16 at 08: 00 Glucose (Glutose) 15 gm Q15M PRN BUCCAL DECREASED GLUCOSE; Start 12/23/16 at 08:00 Acetaminophen (Tylenol Tab) 650 mg Q6H PRN PO PAIN AND OR ELEVATED TEMP Last administered on 12/24/16 17:40; Admin Dose 650 MG; Start 12/23/16 at 14:30 Acetaminophen/ Hydrocodone Bitart ([place] (5/325)) 1 tab Q6H PRN PO PAIN LEVEL 6 -10 Last administered on 01/09/17 05:01; Admin Dose 1 TAB; Start 12/24/16 at 23:00 Pantoprazole (Protonix Tab) 40 mg DAILY@06 PO Last administered on 01/09/17 05:03; Admin Dose 40 MG; Start 12/26/16 at 06:00 Diagnostic Test (Pha) (Accu-Chek) 1 ea 02 XX ; Start 12/26/16 at 02:00 Digoxin (Digoxin) 0.125 mg DAILY PO Last administered on 01/09/17 10:40; Admin Dose 0.125 MG; Start 12/26/16 at 09:00 Mirtazapine (Remeron) 15 mg HS PO Last administered on 01/08/17 21:01; Admin Dose 15 MG; Start 12/26/16 at 21:00 Venlafaxine HCl (Effexor Xr) 150 mg BID PO Last administered on 01/09/17 08: 39; Admin Dose 150 MG; Start 12/26/16 at 09:00 Rifampin (Rifampin) 600 mg DAILY PO Last administered on 01/09/17 08:38; Admin Dose 600 MG; Start 12/27/16 at 14:00 Atorvastatin Calcium (Lipitor) 40 mg HS PO Last administered on 01/08/17 21: 01; Admin Dose 40 MG; Start 12/28/16 at 21:00 Metoprolol Succinate (Toprol Xl) 12.5 mg BID PO Last administered on 08:39; Admin Dose 12.5 MG; Start 12/28/16 at 21:30 Magnesium Hydroxide (Milk Of Mag) 30 ml HS PO Last administered on 01/07/17 20:53; Admin Dose 30 ML; Start 12/29/16 at 21:00 Polyethylene Glycol 17 gm 17 gm BID PO Last administered on 01/09/17 08:38; Admin Dose 17 GM; Start 01/02/17 at 21:00 Clindamycin HCl/ Dextrose (Cleocin 600 Mg/ D5W (Pmx)) 50 ml @ 50 mls/hr Q8 IVPB Last administered on 01/09/17 13:34; Admin Dose 50 MLS/HR; Start 01/08/17 at 22:00 Lactobacillus Acidophilus (Florajen3 Capsule) 1 each BID PO Last administered on 01/09/17 08:38; Admin Dose 1 EACH; Start 01/08/17 at 21:00 Hydralazine HCl (Apresoline) 10 mg Q8 PO Last administered on 01/09/17 13:39 ; Admin Dose 10 MG; Start 01/08/17 at 14:00 Hydrogen Peroxide (Hydrogen Peroxide) 1 applic Q12 TOP Last administered on 08:37; Admin Dose 1 APPLIC; Start 01/08/17 at 21:00 Silver Sulfadiazine (Thermazene 1% 25 Gm) 1 applic Q12 TOP Last administered on 01/09/17 08:37; Admin Dose 1 APPLIC; Start 01/08/17 at 21:00 MIHAI JOSEPH MD Jan 09, 2017 19:43
[2017-01-09] MEDS: MIRTAZAPINE 15 MG TAB PO SCH (22:20)
[2017-01-09] MEDS: ATORVASTATIN 40 MG TAB PO SCH (22:20)
[2017-01-09] MEDS: MAGNESIUM HYDROXIDE 30ML CUP PO SCH ×2 (22:20→22:32)
[2017-01-10] VITALS (12 sets, daily range): BP systolic 107–132; BP diastolic 57–69; PULSE 59–73; RESP 18–20
[2017-01-10] MEDS: ACCU-CHEK XX SCH (01:14)
[2017-01-10] MEDS: ALBUTEROL/IPRATROPIUM (NEB) 3 ML AMP HHN SCH ×4 (01:21→19:25)
[2017-01-10] MEDS: LEVOTHYROXINE 150 MCG TAB PO SCH (06:35)
[2017-01-10] MEDS: CLINDAMYCIN 600 MG/D5W (PMX) 50 ML IVPB SCH ×3 (06:35→21:20)
[2017-01-10] MEDS: PANTOPRAZOLE (EC) 40 MG TAB PO SCH (06:35)
[2017-01-10] MEDS: INSULIN ASPART [NOVOLOG] 3 ML PEN SC SCH ×7 (08:00→21:00)
[2017-01-10 08:17] LABS: ABNORMAL IP MESSAGE 1; BASOPHILS % 0.4 % (0.0-2.0); EOSINOPHILS # 0.2 10^3/ul (0.0-0.5); EOSINOPHILS % 2.5 % (0.0-7.0); HEMATOCRIT 31.7 % (42.0-52.0); HEMOGLOBIN 8.9 g/dl (14.0-18.0); LYMPHOCYTES # 1.3 10^3/ul (0.8-2.9); LYMPHOCYTES % 18.8 % (15.0-51.0); MEAN CORPUSCULAR HEMOGLOBIN 21.4 pg (29.0-33.0); MEAN CORPUSCULAR HGB CONC 28.1 g/dl (32.0-37.0); MEAN CORPUSCULAR VOLUME 76.4 fl (82.0-101.0); MEAN PLATELET VOLUME 9.9 fl (7.4-10.4); MONOCYTE # 0.7 10^3/ul (0.3-0.9); MONOCYTES % 9.8 % (0.0-11.0); NEUTROPHIL # 4.6 10^3/ul (1.6-7.5); NEUTROPHILS % 68.1 % (39.0-77.0); PLATELET COUNT 205 10^3/UL (140-415); POSITIVE DIFF @See below; RED BLOOD COUNT 4.15 10^6/ul (4.70-6.10); RED CELL DISTRIBUTION WIDTH 20.6 % (11.5-14.5); WHITE BLOOD COUNT 6.8 10^3/ul (4.8-10.8)
[2017-01-10 08:35] LABS: CALCIUM 8.8 mg/dl (8.4-10.2); CREATININE 1.62 mg/dl (0.61-1.24); POTASSIUM 4.3 mmol/L (3.5-5.1)
[2017-01-10] MEDS: POLYETHYLENE GLYCOL 17 GM PACKET PO SCH ×2 (09:00→21:18)
[2017-01-10] MEDS: METOPROLOL (XL) 25 MG TAB PO SCH ×2 (09:22→21:20)
[2017-01-10] MEDS: GLIMEPIRIDE 2 MG TAB PO SCH (09:22)
[2017-01-10] MEDS: DIGOXIN 0.125 MG TAB PO SCH (09:23)
[2017-01-10] MEDS: RIFAMPIN 300 MG CAP PO SCH (09:23)
[2017-01-10] MEDS: VENLAFAXINE (XR) 75 MG CAP PO SCH ×2 (09:24→21:19)
[2017-01-10] MEDS: L ACIDOPHIL/B LACTIS/B LONGUM CAPSULE PO SCH ×2 (09:24→21:24)
[2017-01-10] MEDS: HYDROGEN PEROXIDE 118 ML TOP SCH ×2 (09:25→21:22)
[2017-01-10] MEDS: SILVER SULFADIAZINE 1% 25 GM CR TOP SCH ×2 (09:25→21:22)
--- NOTE | 2017-01-10 10:02 | CONS ---
Date/Time of Note Date/Time of Note DATE: 01/10/17 TIME: 10:01 Assessment/Plan Assessment/Plan Chief Complaint/Hosp Course pt admitted with forehead cellulitis with self draining abscess, seen by ID, started on IV abx, noted to have Rising Cr and renal has been consulted for MELINDA on CKD Problems: Additional Assessment/Plan 1. MELINDA on CKD Due to prerenal azotemia + ATN 2. MRSA forehead cellulitis with Abscess s/p Right scalp wound debridement bY G surg on 01/05/17-- still draining-pus/blood per staff- MRSA wound.ID follows 3. H/o CKD III Due to HTN 4. HTN 5. Bipolar 6. DM II Plan : IV abx vancomycin , renally dose it , Cr improved from 2.01 to 1.49,- then bumped today to 1.6- K 4.3- will give NS at 75 cc/hr x 1 liter then stop -BP stable Lisinopril stopped due to bump in Cr - BP controlled, will resume it at the time of discharge Renal US c/w medical renal disease, no hydronephrosis s/p Right scalp wound debridement on 01/05/17- wound cx grew MRSA- wound care, IV a bx as per ID will follow up Consultation Date/Type/Reason Admit Date/Time Dec 23, 2016 at 02:25 Initial Consult Date 12/28/16 Type of Consultation: NEPHROLOGY Referring Provider: JOS FOSTER MD 24 HR Interval Summary Free Text/Dictation Cr bumped slightly to 1.62, Bp stable Exam/Review of Systems Vital Signs Vitals Vital Signs Date Time Temp Pulse Resp B/P Pulse Ox O2 Delivery O2 Flow Rate FiO2 01/10/17 08:09 69 01/10/17 07:57 16 97 21 01/10/17 07:45 97.4 110/69 Intake and Output 01/09/17 01/09/17 01/10/17 15:00 23:00 07:00 Intake Total 660 ml 210 ml Output Total 900 ml 275 ml Balance -240 ml -65 ml Exam GENERAL: Well-developed, elderly man in no distress. HEENT: Head atraumatic, normocephalic. Sclerae anicteric. Buccal mucosa dry. NECK: Supple. CHEST: Rise symmetrical. Breath sounds diminished to bases. HEART: S1, S2. ABDOMEN: Soft, bowel tones present. EXTREMITIES: Without cyanosis. SKIN: Dry, pale, forehead dsg intact. Results Result Diagram: 01/10/17 0720 01/10/17 0720 Results 24 hrs Laboratory Tests Test 01/09/17 11:57 01/09/17 17:08 01/09/17 22:19 01/10/17 07:20 Bedside Glucose 194 85 100 White Blood Count 6.8 Red Blood Count 4.15 L Hemoglobin 8.9 L Hematocrit 31.7 L Mean Corpuscular Volume 76.4 L Mean Corpuscular Hemoglobin 21.4 L Mean Corpuscular Hemoglobin Concent 28.1 L Red Cell Distribution Width 20.6 H Platelet Count 205 Mean Platelet Volume 9.9 Neutrophils % 68.1 Lymphocytes % 18.8 Monocytes % 9.8 Eosinophils % 2.5 Basophils % 0.4 Nucleated Red Blood Cells % 0.0 Neutrophils # 4.6 Lymphocytes # 1.3 Monocytes # 0.7 Eosinophils # 0.2 Basophils # 0.0 Nucleated Red Blood Cells # 0.0 Sodium Level 141 Potassium Level 4.3 Chloride Level 107 Carbon Dioxide Level 26 Anion Gap 12 Blood Urea Nitrogen 24 H Creatinine 1.62 H Glucose Level 111 Calcium Level 8.8 Magnesium Level 2.0 Test 01/10/17 08:25 Bedside Glucose 121 Medications Medications Current Medications Morphine Sulfate (morphine) 4 mg Q4H PRN IV PAIN LEVEL 6-10; Start 12/23/16 at 05:00 Miscellaneous Information 1 ea NOTE XX ; Start 12/23/16 at 08:00 Glucose (Glutose) 15 gm Q15M PRN PO DECREASED GLUCOSE; Start 12/23/16 at 08:00 Glucose (Glutose) 22.5 gm Q15M PRN PO DECREASED GLUCOSE; Start 12/23/16 at 08: 00 Dextrose (D50w Syringe) 25 ml Q15M PRN IV DECREASED GLUCOSE; Start 12/23/16 at 08:00 Dextrose (D50w Syringe) 50 ml Q15M PRN IV DECREASED GLUCOSE; Start 12/23/16 at 08:00 Glucagon (Glucagen) 1 mg Q15M PRN IM DECREASED GLUCOSE; Start 12/23/16 at 08: 00 Glucose (Glutose) 15 gm Q15M PRN BUCCAL DECREASED GLUCOSE; Start 12/23/16 at 08:00 Acetaminophen (Tylenol Tab) 650 mg Q6H PRN PO PAIN AND OR ELEVATED TEMP Last administered on 12/24/16 17:40; Admin Dose 650 MG; Start 12/23/16 at 14:30 Acetaminophen/ Hydrocodone Bitart ([place] (5/325)) 1 tab Q6H PRN PO PAIN LEVEL 6 -10 Last administered on 01/09/17 05:01; Admin Dose 1 TAB; Start 12/24/16 at 23:00 Pantoprazole (Protonix Tab) 40 mg DAILY@06 PO Last administered on 01/10/17 06:35; Admin Dose 40 MG; Start 12/26/16 at 06:00 Diagnostic Test (Pha) (Accu-Chek) 1 ea 02 XX ; Start 12/26/16 at 02:00 Digoxin (Digoxin) 0.125 mg DAILY PO Last administered on 01/10/17 09:23; Admin Dose 0.125 MG; Start 12/26/16 at 09:00 Mirtazapine (Remeron) 15 mg HS PO Last administered on 01/09/17 22:20; Admin Dose 15 MG; Start 12/26/16 at 21:00 Venlafaxine HCl (Effexor Xr) 150 mg BID PO Last administered on 01/10/17 09: 24; Admin Dose 150 MG; Start 12/26/16 at 09:00 Rifampin (Rifampin) 600 mg DAILY PO Last administered on 01/10/17 09:23; Admin Dose 600 MG; Start 12/27/16 at 14:00 Atorvastatin Calcium (Lipitor) 40 mg HS PO Last administered on 01/09/17 22: 20; Admin Dose 40 MG; Start 12/28/16 at 21:00 Metoprolol Succinate (Toprol Xl) 12.5 mg BID PO Last administered on 09:22; Admin Dose 12.5 MG; Start 12/28/16 at 21:30 Magnesium Hydroxide (Milk Of Mag) 30 ml HS PO Last administered on 01/07/17 20:53; Admin Dose 30 ML; Start 12/29/16 at 21:00 Polyethylene Glycol 17 gm 17 gm BID PO Last administered on 01/09/17 08:38; Admin Dose 17 GM; Start 01/02/17 at 21:00 Clindamycin HCl/ Dextrose (Cleocin 600 Mg/ D5W (Pmx)) 50 ml @ 50 mls/hr Q8 IVPB Last administered on 01/10/17 06:35; Admin Dose 50 MLS/HR; Start 01/08/17 at 22:00 Lactobacillus Acidophilus (Florajen3 Capsule) 1 each BID PO Last administered on 01/10/17 09:24; Admin Dose 1 EACH; Start 01/08/17 at 21:00 Hydralazine HCl (Apresoline) 10 mg Q8 PO Last administered on 01/10/17 06:35 ; Admin Dose 10 MG; Start 01/08/17 at 14:00 Hydrogen Peroxide (Hydrogen Peroxide) 1 applic Q12 TOP Last administered on 09:25; Admin Dose 1 APPLIC; Start 01/08/17 at 21:00 Silver Sulfadiazine (Thermazene 1% 25 Gm) 1 applic Q12 TOP Last administered on 01/10/17 09:25; Admin Dose 1 APPLIC; Start 01/08/17 at 21:00 MIHAI JOSEPH MD Jan 10, 2017 10:02
[2017-01-10] MEDS: SOD CHLORIDE 0.9% 1,000 ML IV SCH ×2 (11:00→23:20)
[2017-01-10] MEDS: HYDROCODONE/APAP (5/325) TAB PO PRN (12:19)
--- NOTE | 2017-01-10 13:10 | CONS ---
Date/Time of Note Date/Time of Note DATE: 01/10/17 TIME: 13:02 Consult Date/Type/Reason Admit Date/Time Dec 23, 2016 at 02:25 Type of Consultation: ID Ordering Provider: JOS FOSTER MD Objective Vital Signs Date Time Temp Pulse Resp B/P Pulse Ox O2 Delivery O2 Flow Rate FiO2 01/10/17 12:04 64 01/10/17 12:01 97.8 20 121/57 98 01/10/17 07:57 21 Intake and Output 01/09/17 01/09/17 01/10/17 15:00 23:00 07:00 Intake Total 660 ml 210 ml Output Total 900 ml 275 ml Balance -240 ml -65 ml Results/Medications Result Diagram: 01/10/17 0720 01/10/17 0720 Results 24 hrs Laboratory Tests Test 01/09/17 17:08 01/09/17 22:19 01/10/17 07:20 01/10/17 08:25 Bedside Glucose 85 100 121 White Blood Count 6.8 Red Blood Count 4.15 L Hemoglobin 8.9 L Hematocrit 31.7 L Mean Corpuscular Volume 76.4 L Mean Corpuscular Hemoglobin 21.4 L Mean Corpuscular Hemoglobin Concent 28.1 L Red Cell Distribution Width 20.6 H Platelet Count 205 Mean Platelet Volume 9.9 Neutrophils % 68.1 Lymphocytes % 18.8 Monocytes % 9.8 Eosinophils % 2.5 Basophils % 0.4 Nucleated Red Blood Cells % 0.0 Neutrophils # 4.6 Lymphocytes # 1.3 Monocytes # 0.7 Eosinophils # 0.2 Basophils # 0.0 Nucleated Red Blood Cells # 0.0 Sodium Level 141 Potassium Level 4.3 Chloride Level 107 Carbon Dioxide Level 26 Anion Gap 12 Blood Urea Nitrogen 24 H Creatinine 1.62 H Glucose Level 111 Calcium Level 8.8 Magnesium Level 2.0 Test 01/10/17 12:21 Bedside Glucose 128 Medications Current Medications Morphine Sulfate (morphine) 4 mg Q4H PRN IV PAIN LEVEL 6-10; Start 12/23/16 at 05:00 Miscellaneous Information 1 ea NOTE XX ; Start 12/23/16 at 08:00 Glucose (Glutose) 15 gm Q15M PRN PO DECREASED GLUCOSE; Start 12/23/16 at 08:00 Glucose (Glutose) 22.5 gm Q15M PRN PO DECREASED GLUCOSE; Start 12/23/16 at 08: 00 Dextrose (D50w Syringe) 25 ml Q15M PRN IV DECREASED GLUCOSE; Start 12/23/16 at 08:00 Dextrose (D50w Syringe) 50 ml Q15M PRN IV DECREASED GLUCOSE; Start 12/23/16 at 08:00 Glucagon (Glucagen) 1 mg Q15M PRN IM DECREASED GLUCOSE; Start 12/23/16 at 08: 00 Glucose (Glutose) 15 gm Q15M PRN BUCCAL DECREASED GLUCOSE; Start 12/23/16 at 08:00 Acetaminophen (Tylenol Tab) 650 mg Q6H PRN PO PAIN AND OR ELEVATED TEMP Last administered on 12/24/16 17:40; Admin Dose 650 MG; Start 12/23/16 at 14:30 Acetaminophen/ Hydrocodone Bitart ([place] (5/325)) 1 tab Q6H PRN PO PAIN LEVEL 6 -10 Last administered on 01/10/17 12:19; Admin Dose 1 TAB; Start 12/24/16 at 23:00 Pantoprazole (Protonix Tab) 40 mg DAILY@06 PO Last administered on 01/10/17 06:35; Admin Dose 40 MG; Start 12/26/16 at 06:00 Diagnostic Test (Pha) (Accu-Chek) 1 ea 02 XX ; Start 12/26/16 at 02:00 Digoxin (Digoxin) 0.125 mg DAILY PO Last administered on 01/10/17 09:23; Admin Dose 0.125 MG; Start 12/26/16 at 09:00 Mirtazapine (Remeron) 15 mg HS PO Last administered on 01/09/17 22:20; Admin Dose 15 MG; Start 12/26/16 at 21:00 Venlafaxine HCl (Effexor Xr) 150 mg BID PO Last administered on 01/10/17 09: 24; Admin Dose 150 MG; Start 12/26/16 at 09:00 Rifampin (Rifampin) 600 mg DAILY PO Last administered on 01/10/17 09:23; Admin Dose 600 MG; Start 12/27/16 at 14:00 Atorvastatin Calcium (Lipitor) 40 mg HS PO Last administered on 01/09/17 22: 20; Admin Dose 40 MG; Start 12/28/16 at 21:00 Metoprolol Succinate (Toprol Xl) 12.5 mg BID PO Last administered on 09:22; Admin Dose 12.5 MG; Start 12/28/16 at 21:30 Magnesium Hydroxide (Milk Of Mag) 30 ml HS PO Last administered on 01/07/17 20:53; Admin Dose 30 ML; Start 12/29/16 at 21:00 Polyethylene Glycol 17 gm 17 gm BID PO Last administered on 01/09/17 08:38; Admin Dose 17 GM; Start 01/02/17 at 21:00 Clindamycin HCl/ Dextrose (Cleocin 600 Mg/ D5W (Pmx)) 50 ml @ 50 mls/hr Q8 IVPB Last administered on 01/10/17 06:35; Admin Dose 50 MLS/HR; Start 01/08/17 at 22:00 Lactobacillus Acidophilus (Florajen3 Capsule) 1 each BID PO Last administered on 01/10/17 09:24; Admin Dose 1 EACH; Start 01/08/17 at 21:00 Hydralazine HCl (Apresoline) 10 mg Q8 PO Last administered on 01/10/17 06:35 ; Admin Dose 10 MG; Start 01/08/17 at 14:00 Hydrogen Peroxide (Hydrogen Peroxide) 1 applic Q12 TOP Last administered on 09:25; Admin Dose 1 APPLIC; Start 01/08/17 at 21:00 Silver Sulfadiazine 1 applic 1 applic Q12 TOP Last administered on 01/10/17 09:25; Admin Dose 1 APPLIC; Start 01/08/17 at 21:00 Sodium Chloride (NS) 1,000 ml @ 75 mls/hr [id number] IV Last administered on 11:00; Admin Dose 75 MLS/HR; Start 01/10/17 at 10:00 Assessment/Plan Chief Complaint/Hosp Course SUBJECTIVE: No events overnight, alert, looks comfortable, no fevers. MICROBIOLOGY: Forehead wound cx + MRSA. ANTIMICROBIALS: Clindamycin IV PHYSICAL EXAMINATION: GENERAL: Well-developed, elderly man in no distress. HEENT: Head atraumatic, normocephalic. Sclerae anicteric. Buccal mucosa dry. NECK: Supple. CHEST: Rise symmetrical. Breath sounds diminished to bases. HEART: S1, S2. ABDOMEN: Soft, bowel tones present. EXTREMITIES: Without cyanosis. SKIN: Dry, pale, forehead dsg intact. ASSESSMENT: 1. Methicillin-resistant Staphylococcus aureus cellulitis and abscess with necrosis of the forehead, s/p i&d 01/05/17. 2. Hypertension. 3. Chronic obstructive pulmonary disease. 4. Ischemic cardiomyopathy. 5. Chronic kidney disease stage III. PLAN: The patient remains stable. Continue abx, local wound care per surgical rec-s [facility] staff Problems: ILENE JUDGE NP Jan 10, 2017 13:10
--- NOTE | 2017-01-10 15:31 | CONS ---
Date/Time of Note Date/Time of Note DATE: 01/10/17 TIME: 15:28 Assessment/Plan Assessment/Plan Chief Complaint/Hosp Course IMPRESSION: 1. Preoperative evaluation prior to surgical intervention for scalp abscess.- negative trop x 3. No ischemia by keiry this admit. Thus moderate CV risk, ok to proceed with debridement of scalp abscess. Now post-op s/p I+D 2. History of ischemic cardiomyopathy, last known ejection fraction approximately 40% by echo 2016. 30-35% by echo this year. No ischemia by keiry with EF underestimated. 3. Hypertension. 4. History of percutaneous transluminal coronary angioplasty and stent placement multiple times with most recent approximately 2 to 3 years prior per patient on Plavix. 5. History of transcatheter aortic valve replacement in 2016. 6. Scalp abscess. 7. Diabetes mellitus. 8. Chronic obstructive pulmonary disease. 9. Ongoing tobacco usage. 10. Anemia. 11. Renal failure. 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 Recc: -Tele -local wound care -Continue abx;'s -Continue BB/hydralazine -Start hydralazine afterload reduction -resume plavix Problems: Consultation Date/Type/Reason Admit Date/Time Dec 23, 2016 at 02:25 Initial Consult Date 12/27/2016 Type of Consultation: cardiology Reason for Consultation pre-op/cardiomyopathy Referring Provider: JOS FOSTER MD Exam/Review of Systems Vital Signs Vitals Vital Signs Date Time Temp Pulse Resp B/P Pulse Ox O2 Delivery O2 Flow Rate FiO2 01/10/17 14:05 63 18 98 21 01/10/17 12:01 97.8 121/57 Intake and Output 01/09/17 01/09/17 01/10/17 15:00 23:00 07:00 Intake Total 660 ml 210 ml Output Total 900 ml 275 ml Balance -240 ml -65 ml Exam Review of Systems: CONSTITUTIONAL: No fevers, chills. PULMONARY: No sob CARDIOVASCULAR: No chest pain/palpitations GASTROINTESTINAL: No nausea/vomiting. GENITOURINARY: No hematuria/dysuria. MUSCULOSKELETAL: No myagias/arthalgias. PSYCHIATRIC: The patient denies depression. NEUROLOGIC: No weakness Constitutional: alert, oriented Psych: no complaints Head: normocephalic, other (covered by dressing) ENMT: mucosa pink and moist Neck: jvd (8-9 cm water), supple Respiratory: clear to auscultation Cardiovascular: regular rate and rhythm Gastrointestinal: non-tender, soft Musculoskeletal: muscle tone (normal) Extremities: edema (none) Neurological: other (No focal deficits) Results Result Diagram: 01/10/17 0720 01/10/17 0720 Results 24 hrs Laboratory Tests Test 01/09/17 17:08 01/09/17 22:19 01/10/17 07:20 01/10/17 08:25 Bedside Glucose 85 100 121 White Blood Count 6.8 Red Blood Count 4.15 L Hemoglobin 8.9 L Hematocrit 31.7 L Mean Corpuscular Volume 76.4 L Mean Corpuscular Hemoglobin 21.4 L Mean Corpuscular Hemoglobin Concent 28.1 L Red Cell Distribution Width 20.6 H Platelet Count 205 Mean Platelet Volume 9.9 Neutrophils % 68.1 Lymphocytes % 18.8 Monocytes % 9.8 Eosinophils % 2.5 Basophils % 0.4 Nucleated Red Blood Cells % 0.0 Neutrophils # 4.6 Lymphocytes # 1.3 Monocytes # 0.7 Eosinophils # 0.2 Basophils # 0.0 Nucleated Red Blood Cells # 0.0 Sodium Level 141 Potassium Level 4.3 Chloride Level 107 Carbon Dioxide Level 26 Anion Gap 12 Blood Urea Nitrogen 24 H Creatinine 1.62 H Glucose Level 111 Calcium Level 8.8 Magnesium Level 2.0 Test 01/10/17 12:21 Bedside Glucose 128 Medications Medications Current Medications Morphine Sulfate (morphine) 4 mg Q4H PRN IV PAIN LEVEL 6-10; Start 12/23/16 at 05:00 Miscellaneous Information 1 ea NOTE XX ; Start 12/23/16 at 08:00 Glucose (Glutose) 15 gm Q15M PRN PO DECREASED GLUCOSE; Start 12/23/16 at 08:00 Glucose (Glutose) 22.5 gm Q15M PRN PO DECREASED GLUCOSE; Start 12/23/16 at 08: 00 Dextrose (D50w Syringe) 25 ml Q15M PRN IV DECREASED GLUCOSE; Start 12/23/16 at 08:00 Dextrose (D50w Syringe) 50 ml Q15M PRN IV DECREASED GLUCOSE; Start 12/23/16 at 08:00 Glucagon (Glucagen) 1 mg Q15M PRN IM DECREASED GLUCOSE; Start 12/23/16 at 08: 00 Glucose (Glutose) 15 gm Q15M PRN BUCCAL DECREASED GLUCOSE; Start 12/23/16 at 08:00 Acetaminophen (Tylenol Tab) 650 mg Q6H PRN PO PAIN AND OR ELEVATED TEMP Last administered on 12/24/16 17:40; Admin Dose 650 MG; Start 12/23/16 at 14:30 Acetaminophen/ Hydrocodone Bitart ([place] (5/325)) 1 tab Q6H PRN PO PAIN LEVEL 6 -10 Last administered on 01/10/17 12:19; Admin Dose 1 TAB; Start 12/24/16 at 23:00 Pantoprazole (Protonix Tab) 40 mg DAILY@06 PO Last administered on 01/10/17 06:35; Admin Dose 40 MG; Start 12/26/16 at 06:00 Diagnostic Test (Pha) (Accu-Chek) 1 ea 02 XX ; Start 12/26/16 at 02:00 Digoxin (Digoxin) 0.125 mg DAILY PO Last administered on 01/10/17 09:23; Admin Dose 0.125 MG; Start 12/26/16 at 09:00 Mirtazapine (Remeron) 15 mg HS PO Last administered on 01/09/17 22:20; Admin Dose 15 MG; Start 12/26/16 at 21:00 Venlafaxine HCl (Effexor Xr) 150 mg BID PO Last administered on 01/10/17 09: 24; Admin Dose 150 MG; Start 12/26/16 at 09:00 Rifampin (Rifampin) 600 mg DAILY PO Last administered on 01/10/17 09:23; Admin Dose 600 MG; Start 12/27/16 at 14:00 Atorvastatin Calcium (Lipitor) 40 mg HS PO Last administered on 01/09/17 22: 20; Admin Dose 40 MG; Start 12/28/16 at 21:00 Metoprolol Succinate (Toprol Xl) 12.5 mg BID PO Last administered on 09:22; Admin Dose 12.5 MG; Start 12/28/16 at 21:30 Magnesium Hydroxide (Milk Of Mag) 30 ml HS PO Last administered on 01/07/17 20:53; Admin Dose 30 ML; Start 12/29/16 at 21:00 Polyethylene Glycol 17 gm 17 gm BID PO Last administered on 01/09/17 08:38; Admin Dose 17 GM; Start 01/02/17 at 21:00 Clindamycin HCl/ Dextrose (Cleocin 600 Mg/ D5W (Pmx)) 50 ml @ 50 mls/hr Q8 IVPB Last administered on 01/10/17 13:58; Admin Dose 50 MLS/HR; Start 01/08/17 at 22:00 Lactobacillus Acidophilus (Florajen3 Capsule) 1 each BID PO Last administered on 01/10/17 09:24; Admin Dose 1 EACH; Start 01/08/17 at 21:00 Hydralazine HCl (Apresoline) 10 mg Q8 PO Last administered on 01/10/17 13:58 ; Admin Dose 10 MG; Start 01/08/17 at 14:00 Hydrogen Peroxide (Hydrogen Peroxide) 1 applic Q12 TOP Last administered on 09:25; Admin Dose 1 APPLIC; Start 01/08/17 at 21:00 Silver Sulfadiazine 1 applic 1 applic Q12 TOP Last administered on 01/10/17 09:25; Admin Dose 1 APPLIC; Start 01/08/17 at 21:00 Sodium Chloride (NS) 1,000 ml @ 75 mls/hr [id number] IV Last administered on 11:00; Admin Dose 75 MLS/HR; Start 01/10/17 at 10:00 JACLYN RODRIGUEZ Jan 10, 2017 15:31
--- NOTE | 2017-01-10 17:16 | PN ---
Date/Time of Note Date/Time of Note DATE: 01/10/17 TIME: 17:13 Assessment/Plan VTE Prophylaxis VTE Prophylaxis Intervention: SCD's Lines/Catheters IV [facility]from [facility] Urinary Cath still in place: No Assessment/Plan Chief Complaint/Hosp Course Patient remains hemodynamically stable, afebrile. Assessment/Plan - Scalp cellulitis/abscess. S/p I&D 01/05. Wound cx +MRSA. Continue Clindamycin. Dr. Oliva is following in infection disease consultation. Dr. Saldivar is following in general surgery. - Ischemic cardiomyopathy with ejection fraction of 30% per last echo, continue Coreg per cardiology recs. Dr. Choudhury is following in cardiology consultation. - Bradycardia. Status post Lexiscan with no ischemia, continue telemetry monitoring. - Chronic kidney disease stage III. Monitor renal function and avoid nephrotoxic drugs. - Coronary artery disease with history of stent placement. - Chronic obstructive pulmonary disease. - Diabetes mellitus, hemoglobin A1c is 6.6, continue Amaryl and NovoLog per sliding scale. 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 Further recommendations based on clinical course. Plan of care discussed with Dr. Giron Problems: Exam/Review of Systems Vital Signs Vitals Vital Signs Date Time Temp Pulse Resp B/P Pulse Ox O2 Delivery O2 Flow Rate FiO2 01/10/17 16:05 73 01/10/17 15:52 98.0 20 121/60 98 01/10/17 14:05 21 Intake and Output 01/09/17 01/09/17 01/10/17 15:00 23:00 07:00 Intake Total 660 ml 210 ml Output Total 900 ml 275 ml Balance -240 ml -65 ml Exam Constitutional: alert, oriented Respiratory: normal air movement Cardiovascular: nl pulses Gastrointestinal: non-tender, soft Extremities: normal pulses Neurological: nl mental status Skin: other (scalp wound) Results Result Diagram: 01/10/17 0720 01/10/17 0720 Results 24 hrs Laboratory Tests Test 01/09/17 22:19 01/10/17 07:20 01/10/17 08:25 01/10/17 12:21 Bedside Glucose 100 121 128 White Blood Count 6.8 Red Blood Count 4.15 L Hemoglobin 8.9 L Hematocrit 31.7 L Mean Corpuscular Volume 76.4 L Mean Corpuscular Hemoglobin 21.4 L Mean Corpuscular Hemoglobin Concent 28.1 L Red Cell Distribution Width 20.6 H Platelet Count 205 Mean Platelet Volume 9.9 Neutrophils % 68.1 Lymphocytes % 18.8 Monocytes % 9.8 Eosinophils % 2.5 Basophils % 0.4 Nucleated Red Blood Cells % 0.0 Neutrophils # 4.6 Lymphocytes # 1.3 Monocytes # 0.7 Eosinophils # 0.2 Basophils # 0.0 Nucleated Red Blood Cells # 0.0 Sodium Level 141 Potassium Level 4.3 Chloride Level 107 Carbon Dioxide Level 26 Anion Gap 12 Blood Urea Nitrogen 24 H Creatinine 1.62 H Glucose Level 111 Calcium Level 8.8 Magnesium Level 2.0 Medications Medications Current Medications Morphine Sulfate (morphine) 4 mg Q4H PRN IV PAIN LEVEL 6-10; Start 12/23/16 at 05:00 Miscellaneous Information 1 ea NOTE XX ; Start 12/23/16 at 08:00 Glucose (Glutose) 15 gm Q15M PRN PO DECREASED GLUCOSE; Start 12/23/16 at 08:00 Glucose (Glutose) 22.5 gm Q15M PRN PO DECREASED GLUCOSE; Start 12/23/16 at 08: 00 Dextrose (D50w Syringe) 25 ml Q15M PRN IV DECREASED GLUCOSE; Start 12/23/16 at 08:00 Dextrose (D50w Syringe) 50 ml Q15M PRN IV DECREASED GLUCOSE; Start 12/23/16 at 08:00 Glucagon (Glucagen) 1 mg Q15M PRN IM DECREASED GLUCOSE; Start 12/23/16 at 08: 00 Glucose (Glutose) 15 gm Q15M PRN BUCCAL DECREASED GLUCOSE; Start 12/23/16 at 08:00 Acetaminophen (Tylenol Tab) 650 mg Q6H PRN PO PAIN AND OR ELEVATED TEMP Last administered on 12/24/16 17:40; Admin Dose 650 MG; Start 12/23/16 at 14:30 Acetaminophen/ Hydrocodone Bitart ([place] (5/325)) 1 tab Q6H PRN PO PAIN LEVEL 6 -10 Last administered on 01/10/17 12:19; Admin Dose 1 TAB; Start 12/24/16 at 23:00 Pantoprazole (Protonix Tab) 40 mg DAILY@06 PO Last administered on 01/10/17 06:35; Admin Dose 40 MG; Start 12/26/16 at 06:00 Diagnostic Test (Pha) (Accu-Chek) 1 ea 02 XX ; Start 12/26/16 at 02:00 Digoxin (Digoxin) 0.125 mg DAILY PO Last administered on 01/10/17 09:23; Admin Dose 0.125 MG; Start 12/26/16 at 09:00 Mirtazapine (Remeron) 15 mg HS PO Last administered on 01/09/17 22:20; Admin Dose 15 MG; Start 12/26/16 at 21:00 Venlafaxine HCl (Effexor Xr) 150 mg BID PO Last administered on 01/10/17 09: 24; Admin Dose 150 MG; Start 12/26/16 at 09:00 Rifampin (Rifampin) 600 mg DAILY PO Last administered on 01/10/17 09:23; Admin Dose 600 MG; Start 12/27/16 at 14:00 Atorvastatin Calcium (Lipitor) 40 mg HS PO Last administered on 01/09/17 22: 20; Admin Dose 40 MG; Start 12/28/16 at 21:00 Metoprolol Succinate (Toprol Xl) 12.5 mg BID PO Last administered on 09:22; Admin Dose 12.5 MG; Start 12/28/16 at 21:30 Magnesium Hydroxide (Milk Of Mag) 30 ml HS PO Last administered on 01/07/17 20:53; Admin Dose 30 ML; Start 12/29/16 at 21:00 Polyethylene Glycol 17 gm 17 gm BID PO Last administered on 01/09/17 08:38; Admin Dose 17 GM; Start 01/02/17 at 21:00 Clindamycin HCl/ Dextrose (Cleocin 600 Mg/ D5W (Pmx)) 50 ml @ 50 mls/hr Q8 IVPB Last administered on 01/10/17 13:58; Admin Dose 50 MLS/HR; Start 01/08/17 at 22:00 Lactobacillus Acidophilus (Florajen3 Capsule) 1 each BID PO Last administered on 01/10/17 09:24; Admin Dose 1 EACH; Start 01/08/17 at 21:00 Hydralazine HCl (Apresoline) 10 mg Q8 PO Last administered on 01/10/17 13:58 ; Admin Dose 10 MG; Start 01/08/17 at 14:00 Hydrogen Peroxide (Hydrogen Peroxide) 1 applic Q12 TOP Last administered on 09:25; Admin Dose 1 APPLIC; Start 01/08/17 at 21:00 Silver Sulfadiazine 1 applic 1 applic Q12 TOP Last administered on 01/10/17 09:25; Admin Dose 1 APPLIC; Start 01/08/17 at 21:00 Sodium Chloride (NS) 1,000 ml @ 75 mls/hr [id number] IV Last administered on 11:00; Admin Dose 75 MLS/HR; Start 01/10/17 at 10:00 Clopidogrel Bisulfate (plaVIX) 75 mg DAILY PO ; Start 01/11/17 at 09:00 SELMA ELMORE Jan 10, 2017 17:16
[2017-01-10] MEDS: MAGNESIUM HYDROXIDE 30ML CUP PO SCH (21:18)
[2017-01-10] MEDS: ATORVASTATIN 40 MG TAB PO SCH (21:18)
[2017-01-10] MEDS: MIRTAZAPINE 15 MG TAB PO SCH (21:20)
[2017-01-11] VITALS (12 sets, daily range): BP systolic 115–132; BP diastolic 57–79; PULSE 50–73; RESP 17–20
[2017-01-11] MEDS: ACCU-CHEK XX SCH (02:00)
[2017-01-11] MEDS: ALBUTEROL/IPRATROPIUM (NEB) 3 ML AMP HHN SCH ×4 (02:05→20:21)
[2017-01-11] MEDS: CLINDAMYCIN 600 MG/D5W (PMX) 50 ML IVPB SCH ×3 (05:34→21:44)
[2017-01-11] MEDS: PANTOPRAZOLE (EC) 40 MG TAB PO SCH (05:35)
[2017-01-11] MEDS: LEVOTHYROXINE 150 MCG TAB PO SCH (06:38)
--- NOTE | 2017-01-11 07:04 | PN ---
DATE: 01/10/2017 This 76-year-old male was admitted with swelling of the right forehead with cellulitis and abscess and drainage. Spot culture grew MRSA. The patient started on antibiotics, daily dressing change and local debridement on the floor was done for several days until the patient was cleared by base ply hand for anesthesia. Was taken to the operating room sharp excisional debridement was performed. SUBJECTIVE: No new complaints. OBJECTIVE: GENERAL: Awake, alert. VITAL SIGNS: Temperature 97.8, heart rate 61, respirations 20, blood pressure 121/57, saturation 98% on room air. HEART: Regular. LUNGS: Clear. ABDOMEN: Soft. HEAD: Forehead dressing was changed. Minimal drainage. Was cleansed with hydrogen peroxide and it was washed out with normal saline. Silvadene cream was applied on top of it. Dry dressing was applied. LABORATORIES: WBC 6800 with 68% neutrophils, hemoglobin 8.9, hematocrit 31.7. Chemistry today: Sodium and potassium are normal. BUN 24, creatinine 1.62 ASSESSMENT AND PLAN: A 76-year-old male with a remote history of trauma due to fall on the forehead and later on developed cellulitis and swelling and abscess formation over the right side of the scalp. Spontaneous minimal drainage was going on when the patient presented to the emergency room. MRSA was cultured. Started on antibiotics. Gradually developed renal failure which had on admission gotten worse, creatinine got to 2.1. Antibiotic was changed accordingly. The patient is getting daily dressing change b.i.d. and washout of the wound. Whenever the patient is okay to be discharged by infectious disease and disk sander, from surgical point of view, the patient can be discharged. Whether at home or penitentiary, the wound should be irrigated and dressing should be applied b.i.d. as my instruction has been given. Will continue to follow the patient. Dictated By: ETHEL WRIGHT MD PS/NTS Conf#: [id number] DID#: [id number] CC: DAMIR LATIF MD;*EndCC* MTDD
[2017-01-11 07:31] LABS: BASOPHILS % 0.3 % (0.0-2.0); EOSINOPHILS # 0.2 10^3/ul (0.0-0.5); EOSINOPHILS % 3.4 % (0.0-7.0); HEMATOCRIT 29.7 % (42.0-52.0); HEMOGLOBIN 8.6 g/dl (14.0-18.0); LYMPHOCYTES # 1.1 10^3/ul (0.8-2.9); LYMPHOCYTES % 16.9 % (15.0-51.0); MEAN CORPUSCULAR HEMOGLOBIN 21.9 pg (29.0-33.0); MEAN CORPUSCULAR VOLUME 75.8 fl (82.0-101.0); MEAN PLATELET VOLUME 10.6 fl (7.4-10.4); MONOCYTE # 0.6 10^3/ul (0.3-0.9); MONOCYTES % 8.8 % (0.0-11.0); NEUTROPHIL # 4.7 10^3/ul (1.6-7.5); NEUTROPHILS % 70.3 % (39.0-77.0); PLATELET COUNT 189 10^3/UL (140-415); RED BLOOD COUNT 3.92 10^6/ul (4.70-6.10); RED CELL DISTRIBUTION WIDTH 20.7 % (11.5-14.5); WHITE BLOOD COUNT 6.7 10^3/ul (4.8-10.8)
[2017-01-11 07:56] LABS: CALCIUM 8.9 mg/dl (8.4-10.2); CREATININE 1.58 mg/dl (0.61-1.24); POTASSIUM 4.3 mmol/L (3.5-5.1)
[2017-01-11] MEDS: INSULIN ASPART [NOVOLOG] 3 ML PEN SC SCH ×7 (08:00→20:11)
[2017-01-11] MEDS: SILVER SULFADIAZINE 1% 25 GM CR TOP SCH ×2 (09:00→20:10)
[2017-01-11] MEDS: HYDROGEN PEROXIDE 118 ML TOP SCH ×2 (09:00→20:10)
[2017-01-11] MEDS: VENLAFAXINE (XR) 75 MG CAP PO SCH ×2 (10:03→20:08)
[2017-01-11] MEDS: CLOPIDOGREL 75 MG TAB PO SCH (10:03)
[2017-01-11] MEDS: L ACIDOPHIL/B LACTIS/B LONGUM CAPSULE PO SCH ×2 (10:03→20:08)
[2017-01-11] MEDS: RIFAMPIN 300 MG CAP PO SCH (10:04)
[2017-01-11] MEDS: POLYETHYLENE GLYCOL 17 GM PACKET PO SCH ×2 (10:04→20:11)
[2017-01-11] MEDS: GLIMEPIRIDE 2 MG TAB PO SCH (10:04)
[2017-01-11] MEDS: DIGOXIN 0.125 MG TAB PO SCH (10:07)
[2017-01-11] MEDS: METOPROLOL (XL) 25 MG TAB PO SCH ×2 (10:07→20:08)
--- NOTE | 2017-01-11 14:19 | CONS ---
Date/Time of Note Date/Time of Note DATE: 01/11/17 TIME: 14:18 Consult Date/Type/Reason Admit Date/Time Dec 23, 2016 at 02:25 Type of Consultation: ID Ordering Provider: JOS FOSTER MD Objective Vital Signs Date Time Temp Pulse Resp B/P Pulse Ox O2 Delivery O2 Flow Rate FiO2 01/11/17 12:10 58 01/11/17 11:48 98.0 17 117/79 97 01/11/17 07:38 21 Intake and Output 01/10/17 01/10/17 01/11/17 15:00 23:00 07:00 Intake Total 50 ml 1500 ml 450 ml Output Total 800 ml 900 ml Balance 50 ml 700 ml -450 ml Results/Medications Result Diagram: 01/11/17 0654 01/11/17 0654 Results 24 hrs Laboratory Tests Test 01/10/17 17:38 01/10/17 20:09 01/11/17 06:54 01/11/17 08:56 Bedside Glucose 84 101 114 White Blood Count 6.7 Red Blood Count 3.92 L Hemoglobin 8.6 L Hematocrit 29.7 L Mean Corpuscular Volume 75.8 L Mean Corpuscular Hemoglobin 21.9 L Mean Corpuscular Hemoglobin Concent 29.0 L Red Cell Distribution Width 20.7 H Platelet Count 189 Mean Platelet Volume 10.6 H Neutrophils % 70.3 Lymphocytes % 16.9 Monocytes % 8.8 Eosinophils % 3.4 Basophils % 0.3 Nucleated Red Blood Cells % 0.0 Neutrophils # 4.7 Lymphocytes # 1.1 Monocytes # 0.6 Eosinophils # 0.2 Basophils # 0.0 Nucleated Red Blood Cells # 0.0 Sodium Level 139 Potassium Level 4.3 Chloride Level 108 Carbon Dioxide Level 25 Anion Gap 10 Blood Urea Nitrogen 26 H Creatinine 1.58 H Glucose Level 102 Calcium Level 8.9 Test 01/11/17 11:39 Bedside Glucose 194 Medications Current Medications Morphine Sulfate (morphine) 4 mg Q4H PRN IV PAIN LEVEL 6-10; Start 12/23/16 at 05:00 Miscellaneous Information 1 ea NOTE XX ; Start 12/23/16 at 08:00 Glucose (Glutose) 15 gm Q15M PRN PO DECREASED GLUCOSE; Start 12/23/16 at 08:00 Glucose (Glutose) 22.5 gm Q15M PRN PO DECREASED GLUCOSE; Start 12/23/16 at 08: 00 Dextrose (D50w Syringe) 25 ml Q15M PRN IV DECREASED GLUCOSE; Start 12/23/16 at 08:00 Dextrose (D50w Syringe) 50 ml Q15M PRN IV DECREASED GLUCOSE; Start 12/23/16 at 08:00 Glucagon (Glucagen) 1 mg Q15M PRN IM DECREASED GLUCOSE; Start 12/23/16 at 08: 00 Glucose (Glutose) 15 gm Q15M PRN BUCCAL DECREASED GLUCOSE; Start 12/23/16 at 08:00 Acetaminophen (Tylenol Tab) 650 mg Q6H PRN PO PAIN AND OR ELEVATED TEMP Last administered on 12/24/16 17:40; Admin Dose 650 MG; Start 12/23/16 at 14:30 Acetaminophen/ Hydrocodone Bitart ([place] (5/325)) 1 tab Q6H PRN PO PAIN LEVEL 6 -10 Last administered on 01/10/17 12:19; Admin Dose 1 TAB; Start 12/24/16 at 23:00 Pantoprazole (Protonix Tab) 40 mg DAILY@06 PO Last administered on 01/11/17 05:35; Admin Dose 40 MG; Start 12/26/16 at 06:00 Diagnostic Test (Pha) (Accu-Chek) 1 ea 02 XX ; Start 12/26/16 at 02:00 Digoxin (Digoxin) 0.125 mg DAILY PO Last administered on 01/11/17 10:07; Admin Dose 0.125 MG; Start 12/26/16 at 09:00 Mirtazapine (Remeron) 15 mg HS PO Last administered on 01/10/17 21:20; Admin Dose 15 MG; Start 12/26/16 at 21:00 Venlafaxine HCl (Effexor Xr) 150 mg BID PO Last administered on 01/11/17 10: 03; Admin Dose 150 MG; Start 12/26/16 at 09:00 Rifampin (Rifampin) 600 mg DAILY PO Last administered on 01/11/17 10:04; Admin Dose 600 MG; Start 12/27/16 at 14:00 Atorvastatin Calcium (Lipitor) 40 mg HS PO Last administered on 01/10/17 21: 18; Admin Dose 40 MG; Start 12/28/16 at 21:00 Metoprolol Succinate (Toprol Xl) 12.5 mg BID PO Last administered on 10:07; Admin Dose 12.5 MG; Start 12/28/16 at 21:30 Magnesium Hydroxide (Milk Of Mag) 30 ml HS PO Last administered on 01/10/17 21:18; Admin Dose 30 ML; Start 12/29/16 at 21:00 Polyethylene Glycol 17 gm 17 gm BID PO Last administered on 01/11/17 10:04; Admin Dose 17 GM; Start 01/02/17 at 21:00 Clindamycin HCl/ Dextrose (Cleocin 600 Mg/ D5W (Pmx)) 50 ml @ 50 mls/hr Q8 IVPB Last administered on 01/11/17 14:16; Admin Dose 50 MLS/HR; Start 01/08/17 at 22:00 Lactobacillus Acidophilus (Florajen3 Capsule) 1 each BID PO Last administered on 01/11/17 10:03; Admin Dose 1 EACH; Start 01/08/17 at 21:00 Hydralazine HCl (Apresoline) 10 mg Q8 PO Last administered on 01/11/17 14:16 ; Admin Dose 10 MG; Start 01/08/17 at 14:00 Hydrogen Peroxide (Hydrogen Peroxide) 1 applic Q12 TOP Last administered on 21:22; Admin Dose 1 APPLIC; Start 01/08/17 at 21:00 Silver Sulfadiazine (Thermazene 1% 25 Gm) 1 applic Q12 TOP Last administered on 01/10/17 21:22; Admin Dose 1 APPLIC; Start 01/08/17 at 21:00 Clopidogrel Bisulfate (plaVIX) 75 mg DAILY PO Last administered on 01/11/17 10:03; Admin Dose 75 MG; Start 01/11/17 at 09:00 Assessment/Plan Chief Complaint/Hosp Course SUBJECTIVE: No events overnight, alert, looks comfortable, no fevers. MICROBIOLOGY: Forehead wound cx + MRSA. ANTIMICROBIALS: Clindamycin IV PHYSICAL EXAMINATION: GENERAL: Well-developed, elderly man in no distress. HEENT: Head atraumatic, normocephalic. Sclerae anicteric. Buccal mucosa dry. NECK: Supple. CHEST: Rise symmetrical. Breath sounds diminished to bases. HEART: S1, S2. ABDOMEN: Soft, bowel tones present. EXTREMITIES: Without cyanosis. SKIN: Dry, pale, forehead dsg intact. ASSESSMENT: 1. Methicillin-resistant Staphylococcus aureus cellulitis and abscess with necrosis of the forehead, s/p i&d 01/05/17. 2. Hypertension. 3. Chronic obstructive pulmonary disease. 4. Ischemic cardiomyopathy. 5. Chronic kidney disease stage III. PLAN: The patient remains stable. Surgical rec-s noted, ok dc on PO Clindamycin for 10 more days, keep on probiotics [facility] staff Problems: ILENE JUDGE NP Jan 11, 2017 14:19
--- NOTE | 2017-01-11 16:05 | PN ---
Date/Time of Note Date/Time of Note DATE: 01/11/17 TIME: 16:04 Assessment/Plan VTE Prophylaxis VTE Prophylaxis Intervention: SCD's Lines/Catheters IV Catheter Type (from [facility]): [facility] Lock Urinary Cath still in place: No Assessment/Plan Chief Complaint/Hosp Course Patient needs daily dressing change and by surgery, sinus rhythm with frequent PVCs. Discussed with case management possible SNIF placement upon discharge Assessment/Plan - Scalp cellulitis/abscess. S/p I&D 01/05. Wound cx +MRSA. Continue Clindamycin. Dr. Oliva is following in infection disease consultation. Dr. Saldivar is following in general surgery. - Ischemic cardiomyopathy with ejection fraction of 30% per last echo, continue Coreg per cardiology recs. Dr. Choudhury is following in cardiology consultation. - Bradycardia. Status post Lexiscan with no ischemia, continue telemetry monitoring. - Chronic kidney disease stage III. Monitor renal function and avoid nephrotoxic drugs. - Coronary artery disease with history of stent placement. - Chronic obstructive pulmonary disease. - Diabetes mellitus, hemoglobin A1c is 6.6, continue Amaryl and NovoLog per sliding scale. 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 Further recommendations based on clinical course. Plan of care discussed with Dr. Giron Problems: Exam/Review of Systems Vital Signs Vitals Vital Signs Date Time Temp Pulse Resp B/P Pulse Ox O2 Delivery O2 Flow Rate FiO2 01/11/17 14:39 75 18 98 21 01/11/17 11:48 98.0 117/79 Intake and Output 01/10/17 01/10/17 01/11/17 15:00 23:00 07:00 Intake Total 50 ml 1500 ml 450 ml Output Total 800 ml 900 ml Balance 50 ml 700 ml -450 ml Exam Constitutional: alert, oriented Respiratory: normal air movement Cardiovascular: nl pulses Gastrointestinal: non-tender, soft Extremities: normal pulses Neurological: nl mental status Skin: other (scalp wound) Results Result Diagram: 01/11/17 0654 01/11/17 0654 Results 24 hrs Laboratory Tests Test 01/10/17 17:38 01/10/17 20:09 01/11/17 06:54 01/11/17 08:56 Bedside Glucose 84 101 114 White Blood Count 6.7 Red Blood Count 3.92 L Hemoglobin 8.6 L Hematocrit 29.7 L Mean Corpuscular Volume 75.8 L Mean Corpuscular Hemoglobin 21.9 L Mean Corpuscular Hemoglobin Concent 29.0 L Red Cell Distribution Width 20.7 H Platelet Count 189 Mean Platelet Volume 10.6 H Neutrophils % 70.3 Lymphocytes % 16.9 Monocytes % 8.8 Eosinophils % 3.4 Basophils % 0.3 Nucleated Red Blood Cells % 0.0 Neutrophils # 4.7 Lymphocytes # 1.1 Monocytes # 0.6 Eosinophils # 0.2 Basophils # 0.0 Nucleated Red Blood Cells # 0.0 Sodium Level 139 Potassium Level 4.3 Chloride Level 108 Carbon Dioxide Level 25 Anion Gap 10 Blood Urea Nitrogen 26 H Creatinine 1.58 H Glucose Level 102 Calcium Level 8.9 Test 01/11/17 11:39 Bedside Glucose 194 Medications Medications Current Medications Morphine Sulfate (morphine) 4 mg Q4H PRN IV PAIN LEVEL 6-10; Start 12/23/16 at 05:00 Miscellaneous Information 1 ea NOTE XX ; Start 12/23/16 at 08:00 Glucose (Glutose) 15 gm Q15M PRN PO DECREASED GLUCOSE; Start 12/23/16 at 08:00 Glucose (Glutose) 22.5 gm Q15M PRN PO DECREASED GLUCOSE; Start 12/23/16 at 08: 00 Dextrose (D50w Syringe) 25 ml Q15M PRN IV DECREASED GLUCOSE; Start 12/23/16 at 08:00 Dextrose (D50w Syringe) 50 ml Q15M PRN IV DECREASED GLUCOSE; Start 12/23/16 at 08:00 Glucagon (Glucagen) 1 mg Q15M PRN IM DECREASED GLUCOSE; Start 12/23/16 at 08: 00 Glucose (Glutose) 15 gm Q15M PRN BUCCAL DECREASED GLUCOSE; Start 12/23/16 at 08:00 Acetaminophen (Tylenol Tab) 650 mg Q6H PRN PO PAIN AND OR ELEVATED TEMP Last administered on 12/24/16 17:40; Admin Dose 650 MG; Start 12/23/16 at 14:30 Acetaminophen/ Hydrocodone Bitart ([place] (5/325)) 1 tab Q6H PRN PO PAIN LEVEL 6 -10 Last administered on 01/10/17 12:19; Admin Dose 1 TAB; Start 12/24/16 at 23:00 Pantoprazole (Protonix Tab) 40 mg DAILY@06 PO Last administered on 01/11/17 05:35; Admin Dose 40 MG; Start 12/26/16 at 06:00 Diagnostic Test (Pha) (Accu-Chek) 1 ea 02 XX ; Start 12/26/16 at 02:00 Digoxin (Digoxin) 0.125 mg DAILY PO Last administered on 01/11/17 10:07; Admin Dose 0.125 MG; Start 12/26/16 at 09:00 Mirtazapine (Remeron) 15 mg HS PO Last administered on 01/10/17 21:20; Admin Dose 15 MG; Start 12/26/16 at 21:00 Venlafaxine HCl (Effexor Xr) 150 mg BID PO Last administered on 01/11/17 10: 03; Admin Dose 150 MG; Start 12/26/16 at 09:00 Rifampin (Rifampin) 600 mg DAILY PO Last administered on 01/11/17 10:04; Admin Dose 600 MG; Start 12/27/16 at 14:00 Atorvastatin Calcium (Lipitor) 40 mg HS PO Last administered on 01/10/17 21: 18; Admin Dose 40 MG; Start 12/28/16 at 21:00 Metoprolol Succinate (Toprol Xl) 12.5 mg BID PO Last administered on 10:07; Admin Dose 12.5 MG; Start 12/28/16 at 21:30 Magnesium Hydroxide (Milk Of Mag) 30 ml HS PO Last administered on 01/10/17 21:18; Admin Dose 30 ML; Start 12/29/16 at 21:00 Polyethylene Glycol 17 gm 17 gm BID PO Last administered on 01/11/17 10:04; Admin Dose 17 GM; Start 01/02/17 at 21:00 Clindamycin HCl/ Dextrose (Cleocin 600 Mg/ D5W (Pmx)) 50 ml @ 50 mls/hr Q8 IVPB Last administered on 01/11/17 14:16; Admin Dose 50 MLS/HR; Start 01/08/17 at 22:00 Lactobacillus Acidophilus (Florajen3 Capsule) 1 each BID PO Last administered on 01/11/17 10:03; Admin Dose 1 EACH; Start 01/08/17 at 21:00 Hydralazine HCl (Apresoline) 10 mg Q8 PO Last administered on 11/16/17at 14:16 ; Admin Dose 10 MG; Start 01/08/17 at 14:00 Hydrogen Peroxide (Hydrogen Peroxide) 1 applic Q12 TOP Last administered on 21:22; Admin Dose 1 APPLIC; Start 01/08/17 at 21:00 Silver Sulfadiazine (Thermazene 1% 25 Gm) 1 applic Q12 TOP Last administered on 01/10/17 21:22; Admin Dose 1 APPLIC; Start 01/08/17 at 21:00 Clopidogrel Bisulfate (plaVIX) 75 mg DAILY PO Last administered on 01/11/17 10:03; Admin Dose 75 MG; Start 01/11/17 at 09:00 SELMA ELMORE Jan 11, 2017 16:05
--- NOTE | 2017-01-11 17:21 | CONS ---
Date/Time of Note Date/Time of Note DATE: 01/11/17 TIME: 17:20 Assessment/Plan Assessment/Plan Chief Complaint/Hosp Course pt admitted with forehead cellulitis with self draining abscess, seen by ID, started on IV abx, noted to have Rising Cr and renal has been consulted for MELINDA on CKD Problems: Additional Assessment/Plan 1. MELINDA on CKD Due to prerenal azotemia + ATN 2. MRSA forehead cellulitis with Abscess s/p Right scalp wound debridement bY G surg on 01/05/17-- still draining-pus/blood per staff- MRSA wound.ID follows 3. H/o CKD III Due to HTN 4. HTN 5. Bipolar 6. DM II Plan : IV abx vancomycin , renally dose it , Cr bumped 1.6 yesterday- s/p NS at 75 cc/ hr x 1 lite- today Cr 1.58 -BP stable Lisinopril stopped due to bump in Cr - BP controlled, will resume it at the time of discharge Renal US c/w medical renal disease, no hydronephrosis s/p Right scalp wound debridement on 01/05/17- wound cx grew MRSA- wound care, IV a bx as per ID will follow up Consultation Date/Type/Reason Admit Date/Time Dec 23, 2016 at 02:25 Initial Consult Date 12/28/16 Type of Consultation: NEPHROLOGY Referring Provider: JOS FOSTER MD 24 HR Interval Summary Free Text/Dictation Cr 1.58, Bp stable, Exam/Review of Systems Vital Signs Vitals Vital Signs Date Time Temp Pulse Resp B/P Pulse Ox O2 Delivery O2 Flow Rate FiO2 01/11/17 16:06 70 01/11/17 14:39 18 98 21 01/11/17 11:48 98.0 117/79 Intake and Output 01/10/17 01/10/17 01/11/17 15:00 23:00 07:00 Intake Total 50 ml 1500 ml 450 ml Output Total 800 ml 900 ml Balance 50 ml 700 ml -450 ml Exam GENERAL: Well-developed, elderly man in no distress. HEENT: Head atraumatic, normocephalic. Sclerae anicteric. Buccal mucosa dry. NECK: Supple. CHEST: Rise symmetrical. Breath sounds diminished to bases. HEART: S1, S2. ABDOMEN: Soft, bowel tones present. EXTREMITIES: Without cyanosis. SKIN: Dry, pale, forehead dsg intact. Results Result Diagram: 01/11/17 0654 01/11/17 0654 Results 24 hrs Laboratory Tests Test 01/10/17 17:38 01/10/17 20:09 01/11/17 06:54 01/11/17 08:56 Bedside Glucose 84 101 114 White Blood Count 6.7 Red Blood Count 3.92 L Hemoglobin 8.6 L Hematocrit 29.7 L Mean Corpuscular Volume 75.8 L Mean Corpuscular Hemoglobin 21.9 L Mean Corpuscular Hemoglobin Concent 29.0 L Red Cell Distribution Width 20.7 H Platelet Count 189 Mean Platelet Volume 10.6 H Neutrophils % 70.3 Lymphocytes % 16.9 Monocytes % 8.8 Eosinophils % 3.4 Basophils % 0.3 Nucleated Red Blood Cells % 0.0 Neutrophils # 4.7 Lymphocytes # 1.1 Monocytes # 0.6 Eosinophils # 0.2 Basophils # 0.0 Nucleated Red Blood Cells # 0.0 Sodium Level 139 Potassium Level 4.3 Chloride Level 108 Carbon Dioxide Level 25 Anion Gap 10 Blood Urea Nitrogen 26 H Creatinine 1.58 H Glucose Level 102 Calcium Level 8.9 Test 01/11/17 11:39 Bedside Glucose 194 Medications Medications Current Medications Morphine Sulfate (morphine) 4 mg Q4H PRN IV PAIN LEVEL 6-10; Start 12/23/16 at 05:00 Miscellaneous Information 1 ea NOTE XX ; Start 12/23/16 at 08:00 Glucose (Glutose) 15 gm Q15M PRN PO DECREASED GLUCOSE; Start 12/23/16 at 08:00 Glucose (Glutose) 22.5 gm Q15M PRN PO DECREASED GLUCOSE; Start 12/23/16 at 08: 00 Dextrose (D50w Syringe) 25 ml Q15M PRN IV DECREASED GLUCOSE; Start 12/23/16 at 08:00 Dextrose (D50w Syringe) 50 ml Q15M PRN IV DECREASED GLUCOSE; Start 12/23/16 at 08:00 Glucagon (Glucagen) 1 mg Q15M PRN IM DECREASED GLUCOSE; Start 12/23/16 at 08: 00 Glucose (Glutose) 15 gm Q15M PRN BUCCAL DECREASED GLUCOSE; Start 12/23/16 at 08:00 Acetaminophen (Tylenol Tab) 650 mg Q6H PRN PO PAIN AND OR ELEVATED TEMP Last administered on 12/24/16 17:40; Admin Dose 650 MG; Start 12/23/16 at 14:30 Acetaminophen/ Hydrocodone Bitart ([place] (5/325)) 1 tab Q6H PRN PO PAIN LEVEL 6 -10 Last administered on 01/10/17 12:19; Admin Dose 1 TAB; Start 12/24/16 at 23:00 Pantoprazole (Protonix Tab) 40 mg DAILY@06 PO Last administered on 01/11/17 05:35; Admin Dose 40 MG; Start 12/26/16 at 06:00 Diagnostic Test (Pha) (Accu-Chek) 1 ea 02 XX ; Start 12/26/16 at 02:00 Digoxin (Digoxin) 0.125 mg DAILY PO Last administered on 01/11/17 10:07; Admin Dose 0.125 MG; Start 12/26/16 at 09:00 Mirtazapine (Remeron) 15 mg HS PO Last administered on 01/10/17 21:20; Admin Dose 15 MG; Start 12/26/16 at 21:00 Venlafaxine HCl (Effexor Xr) 150 mg BID PO Last administered on 01/11/17 10: 03; Admin Dose 150 MG; Start 12/26/16 at 09:00 Rifampin (Rifampin) 600 mg DAILY PO Last administered on 01/11/17 10:04; Admin Dose 600 MG; Start 12/27/16 at 14:00 Atorvastatin Calcium (Lipitor) 40 mg HS PO Last administered on 01/10/17 21: 18; Admin Dose 40 MG; Start 12/28/16 at 21:00 Metoprolol Succinate (Toprol Xl) 12.5 mg BID PO Last administered on 10:07; Admin Dose 12.5 MG; Start 12/28/16 at 21:30 Magnesium Hydroxide (Milk Of Mag) 30 ml HS PO Last administered on 01/10/17 21:18; Admin Dose 30 ML; Start 12/29/16 at 21:00 Polyethylene Glycol 17 gm 17 gm BID PO Last administered on 01/11/17 10:04; Admin Dose 17 GM; Start 01/02/17 at 21:00 Clindamycin HCl/ Dextrose (Cleocin 600 Mg/ D5W (Pmx)) 50 ml @ 50 mls/hr Q8 IVPB Last administered on 01/11/17 14:16; Admin Dose 50 MLS/HR; Start 01/08/17 at 22:00 Lactobacillus Acidophilus (Florajen3 Capsule) 1 each BID PO Last administered on 01/11/17 10:03; Admin Dose 1 EACH; Start 01/08/17 at 21:00 Hydralazine HCl (Apresoline) 10 mg Q8 PO Last administered on 01/11/17 14:16 ; Admin Dose 10 MG; Start 01/08/17 at 14:00 Hydrogen Peroxide (Hydrogen Peroxide) 1 applic Q12 TOP Last administered on 21:22; Admin Dose 1 APPLIC; Start 01/08/17 at 21:00 Silver Sulfadiazine (Thermazene 1% 25 Gm) 1 applic Q12 TOP Last administered on 01/10/17 21:22; Admin Dose 1 APPLIC; Start 01/08/17 at 21:00 Clopidogrel Bisulfate (plaVIX) 75 mg DAILY PO Last administered on 01/11/17 10:03; Admin Dose 75 MG; Start 01/11/17 at 09:00 MIHAI JOSEPH MD Jan 11, 2017 17:21
--- NOTE | 2017-01-11 18:20 | PN ---
DATE: 01/11/2017 SUBJECTIVE: No complaint. OBJECTIVE: VITAL SIGNS: Stable. DRESSING CHANGE: The center of the wound has a lot of good granulation tissue formation. The flaps which had been made in the operating room were raised gradually. Underneath there is some necrotic tissue. Debridement in all directions was performed. Washed out with hydrogen peroxide and then n ormal saline and then Silvadene cream on top right under the flaps and on top of the central part of the wound, then covered with sponges and Tegaderm. ASSESSMENT: A 76-year-old gentleman who presented with abscess of the right forehead, which grew me thicillin resistant Staphylococcus aureus. Several times debrided at the bedside and eventually in the operating room was performed. Necrotic tissue was removed. Wound looks much better now, but st ill there is slight necrotic tissue which was debrided today at the bedside. PLAN: Continue current care, mainly antibiotics and local wound care with hydrogen peroxide and nor mal saline and then Silvadene cream. I will do it again tomorrow. Dictated By: ETHEL WRIGHT MD PS/NTS Conf#: [id number] DID#: [id number] CC: DAMIR LATIF MD;*EndCC*
--- NOTE | 2017-01-11 19:38 | CONS ---
Date/Time of Note Date/Time of Note DATE: 01/11/17 TIME: 19:36 Assessment/Plan Assessment/Plan Chief Complaint/Hosp Course IMPRESSION: 1. Preoperative evaluation prior to surgical intervention for scalp abscess.- negative trop x 3. No ischemia by keiry this admit. Thus moderate CV risk, ok to proceed with debridement of scalp abscess. Now post-op s/p I+D 2. History of ischemic cardiomyopathy, last known ejection fraction approximately 40% by echo 2016. 30-35% by echo this year. No ischemia by keiry with EF underestimated. 3. Hypertension. 4. History of percutaneous transluminal coronary angioplasty and stent placement multiple times with most recent approximately 2 to 3 years prior per patient on Plavix. 5. History of transcatheter aortic valve replacement in 2016. 6. Scalp abscess. 7. Diabetes mellitus. 8. Chronic obstructive pulmonary disease. 9. Ongoing tobacco usage. 10. Anemia. 11. Renal failure. 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 Recc: -Tele -local wound care -Continue abx;'s -Continue BB/hydralazine/plavix/digoxin Problems: Consultation Date/Type/Reason Admit Date/Time Dec 23, 2016 at 02:25 Initial Consult Date 12/27/2016 Type of Consultation: cardiology Reason for Consultation cardiomyopathy Referring Provider: JOS FOSTER MD Exam/Review of Systems Vital Signs Vitals Vital Signs Date Time Temp Pulse Resp B/P Pulse Ox O2 Delivery O2 Flow Rate FiO2 01/11/17 16:06 70 01/11/17 14:39 18 98 21 01/11/17 11:48 98.0 117/79 Intake and Output 01/10/17 01/10/17 01/11/17 15:00 23:00 07:00 Intake Total 50 ml 1500 ml 450 ml Output Total 800 ml 900 ml Balance 50 ml 700 ml -450 ml Exam Review of Systems: CONSTITUTIONAL: No fevers, chills. PULMONARY: No sob CARDIOVASCULAR: No chest pain/palpitations GASTROINTESTINAL: No nausea/vomiting. GENITOURINARY: No hematuria/dysuria. MUSCULOSKELETAL: No myagias/arthalgias. PSYCHIATRIC: The patient denies depression. NEUROLOGIC: No weakness Constitutional: alert, oriented Psych: no complaints Head: normocephalic, other (scalp covered by dressing) ENMT: mucosa pink and moist Neck: jvd (9 cm water), supple Respiratory: clear to auscultation Cardiovascular: regular rate and rhythm Gastrointestinal: non-tender, soft Musculoskeletal: muscle tone (normal) Extremities: edema (none) Neurological: other (No focal deficits) Results Result Diagram: 01/11/17 0654 01/11/17 0654 Results 24 hrs Laboratory Tests Test 01/10/17 20:09 01/11/17 06:54 01/11/17 08:56 01/11/17 11:39 Bedside Glucose 101 114 194 White Blood Count 6.7 Red Blood Count 3.92 L Hemoglobin 8.6 L Hematocrit 29.7 L Mean Corpuscular Volume 75.8 L Mean Corpuscular Hemoglobin 21.9 L Mean Corpuscular Hemoglobin Concent 29.0 L Red Cell Distribution Width 20.7 H Platelet Count 189 Mean Platelet Volume 10.6 H Neutrophils % 70.3 Lymphocytes % 16.9 Monocytes % 8.8 Eosinophils % 3.4 Basophils % 0.3 Nucleated Red Blood Cells % 0.0 Neutrophils # 4.7 Lymphocytes # 1.1 Monocytes # 0.6 Eosinophils # 0.2 Basophils # 0.0 Nucleated Red Blood Cells # 0.0 Sodium Level 139 Potassium Level 4.3 Chloride Level 108 Carbon Dioxide Level 25 Anion Gap 10 Blood Urea Nitrogen 26 H Creatinine 1.58 H Glucose Level 102 Calcium Level 8.9 Test 01/11/17 18:20 Bedside Glucose 133 Medications Medications Current Medications Morphine Sulfate (morphine) 4 mg Q4H PRN IV PAIN LEVEL 6-10; Start 12/23/16 at 05:00 Miscellaneous Information 1 ea NOTE XX ; Start 12/23/16 at 08:00 Glucose (Glutose) 15 gm Q15M PRN PO DECREASED GLUCOSE; Start 12/23/16 at 08:00 Glucose (Glutose) 22.5 gm Q15M PRN PO DECREASED GLUCOSE; Start 12/23/16 at 08: 00 Dextrose (D50w Syringe) 25 ml Q15M PRN IV DECREASED GLUCOSE; Start 12/23/16 at 08:00 Dextrose (D50w Syringe) 50 ml Q15M PRN IV DECREASED GLUCOSE; Start 12/23/16 at 08:00 Glucagon (Glucagen) 1 mg Q15M PRN IM DECREASED GLUCOSE; Start 12/23/16 at 08: 00 Glucose (Glutose) 15 gm Q15M PRN BUCCAL DECREASED GLUCOSE; Start 12/23/16 at 08:00 Acetaminophen (Tylenol Tab) 650 mg Q6H PRN PO PAIN AND OR ELEVATED TEMP Last administered on 12/24/16 17:40; Admin Dose 650 MG; Start 12/23/16 at 14:30 Acetaminophen/ Hydrocodone Bitart ([place] (5/325)) 1 tab Q6H PRN PO PAIN LEVEL 6 -10 Last administered on 01/10/17 12:19; Admin Dose 1 TAB; Start 12/24/16 at 23:00 Pantoprazole (Protonix Tab) 40 mg DAILY@06 PO Last administered on 01/11/17 05:35; Admin Dose 40 MG; Start 12/26/16 at 06:00 Diagnostic Test (Pha) (Accu-Chek) 1 ea 02 XX ; Start 12/26/16 at 02:00 Digoxin (Digoxin) 0.125 mg DAILY PO Last administered on 01/11/17 10:07; Admin Dose 0.125 MG; Start 12/26/16 at 09:00 Mirtazapine (Remeron) 15 mg HS PO Last administered on 01/10/17 21:20; Admin Dose 15 MG; Start 12/26/16 at 21:00 Venlafaxine HCl (Effexor Xr) 150 mg BID PO Last administered on 01/11/17 10: 03; Admin Dose 150 MG; Start 12/26/16 at 09:00 Rifampin (Rifampin) 600 mg DAILY PO Last administered on 01/11/17 10:04; Admin Dose 600 MG; Start 12/27/16 at 14:00 Atorvastatin Calcium (Lipitor) 40 mg HS PO Last administered on 01/10/17 21: 18; Admin Dose 40 MG; Start 12/28/16 at 21:00 Metoprolol Succinate (Toprol Xl) 12.5 mg BID PO Last administered on 10:07; Admin Dose 12.5 MG; Start 12/28/16 at 21:30 Magnesium Hydroxide (Milk Of Mag) 30 ml HS PO Last administered on 01/10/17 21:18; Admin Dose 30 ML; Start 12/29/16 at 21:00 Polyethylene Glycol 17 gm 17 gm BID PO Last administered on 01/11/17 10:04; Admin Dose 17 GM; Start 01/02/17 at 21:00 Clindamycin HCl/ Dextrose (Cleocin 600 Mg/ D5W (Pmx)) 50 ml @ 50 mls/hr Q8 IVPB Last administered on 01/11/17 14:16; Admin Dose 50 MLS/HR; Start 01/08/17 at 22:00 Lactobacillus Acidophilus (Florajen3 Capsule) 1 each BID PO Last administered on 01/11/17 10:03; Admin Dose 1 EACH; Start 01/08/17 at 21:00 Hydralazine HCl (Apresoline) 10 mg Q8 PO Last administered on 01/11/17 14:16 ; Admin Dose 10 MG; Start 01/08/17 at 14:00 Hydrogen Peroxide (Hydrogen Peroxide) 1 applic Q12 TOP Last administered on 21:22; Admin Dose 1 APPLIC; Start 01/08/17 at 21:00 Silver Sulfadiazine (Thermazene 1% 25 Gm) 1 applic Q12 TOP Last administered on 01/10/17 21:22; Admin Dose 1 APPLIC; Start 01/08/17 at 21:00 Clopidogrel Bisulfate (plaVIX) 75 mg DAILY PO Last administered on 01/11/17 10:03; Admin Dose 75 MG; Start 01/11/17 at 09:00 JACLYN RODRIGUEZ 16, 2017 19:38
[2017-01-11] MEDS: ATORVASTATIN 40 MG TAB PO SCH (20:09)
[2017-01-11] MEDS: MIRTAZAPINE 15 MG TAB PO SCH (20:11)
[2017-01-11] MEDS: MAGNESIUM HYDROXIDE 30ML CUP PO SCH (21:00)
[2017-01-12] VITALS (9 sets, daily range): BP systolic 116–158; BP diastolic 59–90; PULSE 57–67; RESP 16–21
[2017-01-12] MEDS: ACCU-CHEK XX SCH (00:37)
[2017-01-12] MEDS: ALBUTEROL/IPRATROPIUM (NEB) 3 ML AMP HHN SCH ×4 (01:27→21:55)
[2017-01-12] MEDS: HYDROCODONE/APAP (5/325) TAB PO PRN (04:44)
[2017-01-12] MEDS: LEVOTHYROXINE 150 MCG TAB PO SCH (05:44)
[2017-01-12] MEDS: PANTOPRAZOLE (EC) 40 MG TAB PO SCH (05:44)
[2017-01-12] MEDS: CLINDAMYCIN 600 MG/D5W (PMX) 50 ML IVPB SCH ×3 (05:44→22:41)
[2017-01-12] MEDS: INSULIN ASPART [NOVOLOG] 3 ML PEN SC SCH ×7 (08:00→21:00)
[2017-01-12] MEDS: POLYETHYLENE GLYCOL 17 GM PACKET PO SCH ×2 (08:10→21:57)
[2017-01-12] MEDS: GLIMEPIRIDE 2 MG TAB PO SCH (08:11)
[2017-01-12] MEDS: DIGOXIN 0.125 MG TAB PO SCH (08:11)
[2017-01-12] MEDS: VENLAFAXINE (XR) 75 MG CAP PO SCH ×2 (08:11→21:57)
[2017-01-12] MEDS: L ACIDOPHIL/B LACTIS/B LONGUM CAPSULE PO SCH ×2 (08:11→21:56)
[2017-01-12] MEDS: RIFAMPIN 300 MG CAP PO SCH (08:12)
[2017-01-12] MEDS: CLOPIDOGREL 75 MG TAB PO SCH (08:12)
[2017-01-12] MEDS: METOPROLOL (XL) 25 MG TAB PO SCH ×2 (08:12→21:56)
[2017-01-12] MEDS: SILVER SULFADIAZINE 1% 25 GM CR TOP SCH ×3 (09:00→21:00)
[2017-01-12] MEDS: HYDROGEN PEROXIDE 118 ML TOP SCH ×3 (09:00→21:00)
--- NOTE | 2017-01-12 13:07 | PN ---
Date/Time of Note Date/Time of Note DATE: 01/12/17 TIME: 13:05 Assessment/Plan VTE Prophylaxis VTE Prophylaxis Intervention: SCD's Lines/Catheters IV C[facility]ter Type [facility]from [facility] [facility] Urinary Cath still in place: No Assessment/Plan Chief Complaint/Hosp Course Patient's continues on daily dressing changes by surgery, he is on antibiotics. DC planning for [facility] facility Assessment/Plan - Scalp cellulitis/abscess. S/p I&D 01/05. Wound cx +MRSA. Continue Clindamycin. Dr. Oliva is following in infection disease consultation. Dr. Saldivar is following in general surgery. - Ischemic cardiomyopathy with ejection fraction of 30% per last echo, continue Coreg per cardiology recs. Dr. Choudhury is following in cardiology consultation. - Bradycardia. Status post Lexiscan with no ischemia, continue telemetry monitoring. - Chronic kidney disease stage III. Monitor renal function and avoid nephrotoxic drugs. - Coronary artery disease with history of stent placement. - Chronic obstructive pulmonary disease. - Diabetes mellitus, hemoglobin A1c is 6.6, continue Amaryl and NovoLog per sliding scale. 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 Further recommendations based on clinical course. Plan of care discussed with Dr. Giron Problems: Exam/Review of Systems Vital Signs Vitals Vital Signs Date Time Temp Pulse Resp B/P Pulse Ox O2 Delivery O2 Flow Rate FiO2 01/12/17 12:13 60 01/12/17 11:33 98.3 18 118/62 97 01/12/17 08:21 21 Intake and Output 01/11/17 01/11/17 01/12/17 15:00 23:00 07:00 Intake Total 800 ml 250 ml Output Total 700 ml 650 ml Balance 100 ml -400 ml Exam Constitutional: alert, oriented Respiratory: normal air movement Cardiovascular: nl pulses Gastrointestinal: non-tender, soft Extremities: normal pulses Neurological: nl mental status Skin: other (scalp wound) Results Result Diagram: 01/11/17 0654 01/11/17 0654 Results 24 hrs Laboratory Tests Test 01/11/17 18:20 01/11/17 20:07 01/12/17 08:10 01/12/17 11:40 Bedside Glucose 133 92 98 130 Medications Medications Current Medications Morphine Sulfate (morphine) 4 mg Q4H PRN IV PAIN LEVEL 6-10; Start 12/23/16 at 05:00 Miscellaneous Information 1 ea NOTE XX ; Start 12/23/16 at 08:00 Glucose (Glutose) 15 gm Q15M PRN PO DECREASED GLUCOSE; Start 12/23/16 at 08:00 Glucose (Glutose) 22.5 gm Q15M PRN PO DECREASED GLUCOSE; Start 12/23/16 at 08: 00 Dextrose (D50w Syringe) 25 ml Q15M PRN IV DECREASED GLUCOSE; Start 12/23/16 at 08:00 Dextrose (D50w Syringe) 50 ml Q15M PRN IV DECREASED GLUCOSE; Start 12/23/16 at 08:00 Glucagon (Glucagen) 1 mg Q15M PRN IM DECREASED GLUCOSE; Start 12/23/16 at 08: 00 Glucose (Glutose) 15 gm Q15M PRN BUCCAL DECREASED GLUCOSE; Start 12/23/16 at 08:00 Acetaminophen (Tylenol Tab) 650 mg Q6H PRN PO PAIN AND OR ELEVATED TEMP Last administered on 12/24/16 17:40; Admin Dose 650 MG; Start 12/23/16 at 14:30 Acetaminophen/ Hydrocodone Bitart ([place] (5/325)) 1 tab Q6H PRN PO PAIN LEVEL 6 -10 Last administered on 01/12/17 04:44; Admin Dose 1 TAB; Start 12/24/16 at 23:00 Pantoprazole (Protonix Tab) 40 mg DAILY@06 PO Last administered on 01/12/17 05:44; Admin Dose 40 MG; Start 12/26/16 at 06:00 Diagnostic Test (Pha) (Accu-Chek) 1 ea 02 XX ; Start 12/26/16 at 02:00 Digoxin (Digoxin) 0.125 mg DAILY PO Last administered on 01/12/17 08:11; Admin Dose 0.125 MG; Start 12/26/16 at 09:00 Mirtazapine (Remeron) 15 mg HS PO Last administered on 01/11/17 20:11; Admin Dose 15 MG; Start 12/26/16 at 21:00 Venlafaxine HCl (Effexor Xr) 150 mg BID PO Last administered on 01/12/17 08: 11; Admin Dose 150 MG; Start 12/26/16 at 09:00 Rifampin (Rifampin) 600 mg DAILY PO Last administered on 01/12/17 08:12; Admin Dose 600 MG; Start 12/27/16 at 14:00 Atorvastatin Calcium (Lipitor) 40 mg HS PO Last administered on 01/11/17 20: 09; Admin Dose 40 MG; Start 12/28/16 at 21:00 Metoprolol Succinate (Toprol Xl) 12.5 mg BID PO Last administered on 08:12; Admin Dose 12.5 MG; Start 12/28/16 at 21:30 Magnesium Hydroxide (Milk Of Mag) 30 ml HS PO Last administered on 01/10/17 21:18; Admin Dose 30 ML; Start 12/29/16 at 21:00 Polyethylene Glycol 17 gm 17 gm BID PO Last administered on 01/12/17 08:10; Admin Dose 17 GM; Start 01/02/17 at 21:00 Clindamycin HCl/ Dextrose (Cleocin 600 Mg/ D5W (Pmx)) 50 ml @ 50 mls/hr Q8 IVPB Last administered on 01/12/17 05:44; Admin Dose 50 MLS/HR; Start 01/08/17 at 22:00 Lactobacillus Acidophilus (Florajen3 Capsule) 1 each BID PO Last administered on 01/12/17 08:11; Admin Dose 1 EACH; Start 01/08/17 at 21:00 Hydralazine HCl (Apresoline) 10 mg Q8 PO Last administered on 01/12/17 05:44 ; Admin Dose 10 MG; Start 01/08/17 at 14:00 Hydrogen Peroxide (Hydrogen Peroxide) 1 applic Q12 TOP Last administered on 20:10; Admin Dose 1 APPLIC; Start 01/08/17 at 21:00 Silver Sulfadiazine (Thermazene 1% 25 Gm) 1 applic Q12 TOP Last administered on 01/11/17 20:10; Admin Dose 1 APPLIC; Start 01/08/17 at 21:00 Clopidogrel Bisulfate (plaVIX) 75 mg DAILY PO Last administered on 01/11/17 10:03; Admin Dose 75 MG; Start 01/11/17 at 09:00 SELMA ELMORE Jan 12, 2017 13:07
--- NOTE | 2017-01-12 14:05 | CONS ---
Date/Time of Note Date/Time of Note DATE: 01/12/17 TIME: 14:04 Consult Date/Type/Reason Admit Date/Time Dec 23, 2016 at 02:25 Type of Consultation: ID Ordering Provider: JOS FOSTER MD Objective Vital Signs Date Time Temp Pulse Resp B/P Pulse Ox O2 Delivery O2 Flow Rate FiO2 01/12/17 12:13 60 01/12/17 11:33 98.3 18 118/62 97 01/12/17 08:21 21 Intake and Output 01/11/17 01/11/17 01/12/17 15:00 23:00 07:00 Intake Total 800 ml 250 ml Output Total 700 ml 650 ml Balance 100 ml -400 ml Results/Medications Result Diagram: 01/11/17 0654 01/11/17 0654 Results 24 hrs Laboratory Tests Test 01/11/17 18:20 01/11/17 20:07 01/12/17 08:10 01/12/17 11:40 Bedside Glucose 133 92 98 130 Medications Current Medications Morphine Sulfate (morphine) 4 mg Q4H PRN IV PAIN LEVEL 6-10; Start 12/23/16 at 05:00 Miscellaneous Information 1 ea NOTE XX ; Start 12/23/16 at 08:00 Glucose (Glutose) 15 gm Q15M PRN PO DECREASED GLUCOSE; Start 12/23/16 at 08:00 Glucose (Glutose) 22.5 gm Q15M PRN PO DECREASED GLUCOSE; Start 12/23/16 at 08: 00 Dextrose (D50w Syringe) 25 ml Q15M PRN IV DECREASED GLUCOSE; Start 12/23/16 at 08:00 Dextrose (D50w Syringe) 50 ml Q15M PRN IV DECREASED GLUCOSE; Start 12/23/16 at 08:00 Glucagon (Glucagen) 1 mg Q15M PRN IM DECREASED GLUCOSE; Start 12/23/16 at 08: 00 Glucose (Glutose) 15 gm Q15M PRN BUCCAL DECREASED GLUCOSE; Start 12/23/16 at 08:00 Acetaminophen (Tylenol Tab) 650 mg Q6H PRN PO PAIN AND OR ELEVATED TEMP Last administered on 12/24/16t 17:40; Admin Dose 650 MG; Start 12/23/16 at 14:30 Acetaminophen/ Hydrocodone Bitart ([place] (5/325)) 1 tab Q6H PRN PO PAIN LEVEL 6 -10 Last administered on 01/12/17 04:44; Admin Dose 1 TAB; Start 12/24/16 at 23:00 Pantoprazole (Protonix Tab) 40 mg DAILY@06 PO Last administered on 01/12/17 05:44; Admin Dose 40 MG; Start 12/26/16 at 06:00 Diagnostic Test (Pha) (Accu-Chek) 1 ea 02 XX ; Start 12/26/16 at 02:00 Digoxin (Digoxin) 0.125 mg DAILY PO Last administered on 01/12/17 08:11; Admin Dose 0.125 MG; Start 12/26/16 at 09:00 Mirtazapine (Remeron) 15 mg HS PO Last administered on 01/11/17 20:11; Admin Dose 15 MG; Start 12/26/16 at 21:00 Venlafaxine HCl (Effexor Xr) 150 mg BID PO Last administered on 01/12/17 08: 11; Admin Dose 150 MG; Start 12/26/16 at 09:00 Rifampin (Rifampin) 600 mg DAILY PO Last administered on 01/12/17 08:12; Admin Dose 600 MG; Start 12/27/16 at 14:00 Atorvastatin Calcium (Lipitor) 40 mg HS PO Last administered on 01/11/17 20: 09; Admin Dose 40 MG; Start 12/28/16 at 21:00 Metoprolol Succinate (Toprol Xl) 12.5 mg BID PO Last administered on 08:12; Admin Dose 12.5 MG; Start 12/28/16 at 21:30 Magnesium Hydroxide (Milk Of Mag) 30 ml HS PO Last administered on 01/10/17 21:18; Admin Dose 30 ML; Start 12/29/16 at 21:00 Polyethylene Glycol 17 gm 17 gm BID PO Last administered on 01/12/17 08:10; Admin Dose 17 GM; Start 01/02/17 at 21:00 Clindamycin HCl/ Dextrose (Cleocin 600 Mg/ D5W (Pmx)) 50 ml @ 50 mls/hr Q8 IVPB Last administered on 01/12/17 05:44; Admin Dose 50 MLS/HR; Start 01/08/17 at 22:00 Lactobacillus Acidophilus (Florajen3 Capsule) 1 each BID PO Last administered on 01/12/17 08:11; Admin Dose 1 EACH; Start 01/08/17 at 21:00 Hydralazine HCl (Apresoline) 10 mg Q8 PO Last administered on 01/12/17 05:44 ; Admin Dose 10 MG; Start 01/08/17 at 14:00 Hydrogen Peroxide (Hydrogen Peroxide) 1 applic Q12 TOP Last administered on 20:10; Admin Dose 1 APPLIC; Start 01/08/17 at 21:00 Silver Sulfadiazine (Thermazene 1% 25 Gm) 1 applic Q12 TOP Last administered on 01/11/17 20:10; Admin Dose 1 APPLIC; Start 01/08/17 at 21:00 Clopidogrel Bisulfate (plaVIX) 75 mg DAILY PO Last administered on 01/11/17 10:03; Admin Dose 75 MG; Start 01/11/17 at 09:00 Assessment/Plan Chief Complaint/Hosp Course SUBJECTIVE: No events overnight, alert, looks comfortable, no fevers. MICROBIOLOGY: Forehead wound cx + MRSA. ANTIMICROBIALS: Clindamycin IV PHYSICAL EXAMINATION: GENERAL: Well-developed, elderly man in no distress. HEENT: Head atraumatic, normocephalic. Sclerae anicteric. Buccal mucosa dry. NECK: Supple. CHEST: Rise symmetrical. Breath sounds diminished to bases. HEART: S1, S2. ABDOMEN: Soft, bowel tones present. EXTREMITIES: Without cyanosis. SKIN: Dry, pale, forehead dsg intact. ASSESSMENT: 1. Methicillin-resistant Staphylococcus aureus cellulitis and abscess with necrosis of the forehead, s/p i&d 01/05/17. 2. Hypertension. 3. Chronic obstructive pulmonary disease. 4. Ischemic cardiomyopathy. 5. Chronic kidney disease stage III. PLAN: The patient remains stable. Ok dc on PO Clindamycin for 9 more days, continue probiotics, surgical rec-s DW staff Problems: ILENE JUDGE NP Jan 12, 2017 14:05
--- NOTE | 2017-01-12 15:54 | CONS ---
Date/Time of Note Date/Time of Note DATE: 01/12/17 TIME: 15:46 Assessment/Plan Assessment/Plan Chief Complaint/Hosp Course pt admitted with forehead cellulitis with self draining abscess, seen by ID, started on IV abx, noted to have Rising Cr and renal has been consulted for MELIDNA on CKD Problems: Additional Assessment/Plan 1. MELINDA on CKD Due to prerenal azotemia + ATN 2. MRSA forehead cellulitis with Abscess s/p Right scalp wound debridement bY G surg on 01/05/17-- still draining-pus/blood per staff- MRSA wound.ID follows 3. H/o CKD III Due to HTN 4. HTN 5. Bipolar 6. DM II Plan : IV abx vancomycin , renally dose it - s/p NS at 75 cc/hr x 1 lite- yesterday Cr 1.58- no labs today to review yet -BP stable Lisinopril stopped due to bump in Cr - BP controlled, will resume it at the time of discharge Renal US c/w medical renal disease, no hydronephrosis s/p Right scalp wound debridement on 01/05/17- wound cx grew MRSA- wound care, IV a bx as per ID will follow up Consultation Date/Type/Reason Admit Date/Time Dec 23, 2016 at 02:25 Initial Consult Date 12/28/16 Type of Consultation: NEPHROLOGY Referring Provider: JOS FOSTER MD 24 HR Interval Summary Free Text/Dictation No labs today to review yet Exam/Review of Systems Vital Signs Vitals Vital Signs Date Time Temp Pulse Resp B/P Pulse Ox O2 Delivery O2 Flow Rate FiO2 01/12/17 15:37 98.3 63 18 121/59 94 01/12/17 15:14 21 Intake and Output 01/11/17 01/11/17 01/12/17 15:00 23:00 07:00 Intake Total 800 ml 250 ml Output Total 700 ml 650 ml Balance 100 ml -400 ml Exam GENERAL: Well-developed, elderly man in no distress. HEENT: Head atraumatic, normocephalic. Sclerae anicteric. Buccal mucosa dry. NECK: Supple. CHEST: Rise symmetrical. Breath sounds diminished to bases. HEART: S1, S2. ABDOMEN: Soft, bowel tones present. EXTREMITIES: Without cyanosis. SKIN: Dry, pale, forehead dsg intact. Results Result Diagram: 01/11/17 0654 01/11/17 0654 Results 24 hrs Laboratory Tests Test 01/11/17 18:20 01/11/17 20:07 01/12/17 08:10 01/12/17 11:40 Bedside Glucose 133 92 98 130 Medications Medications Current Medications Morphine Sulfate (morphine) 4 mg Q4H PRN IV PAIN LEVEL 6-10; Start 12/23/16 at 05:00 Miscellaneous Information 1 ea NOTE XX ; Start 12/23/16 at 08:00 Glucose (Glutose) 15 gm Q15M PRN PO DECREASED GLUCOSE; Start 12/23/16 at 08:00 Glucose (Glutose) 22.5 gm Q15M PRN PO DECREASED GLUCOSE; Start 12/23/16 at 08: 00 Dextrose (D50w Syringe) 25 ml Q15M PRN IV DECREASED GLUCOSE; Start 12/23/16 at 08:00 Dextrose (D50w Syringe) 50 ml Q15M PRN IV DECREASED GLUCOSE; Start 12/23/16 at 08:00 Glucagon (Glucagen) 1 mg Q15M PRN IM DECREASED GLUCOSE; Start 12/23/16 at 08: 00 Glucose (Glutose) 15 gm Q15M PRN BUCCAL DECREASED GLUCOSE; Start 12/23/16 at 08:00 Acetaminophen (Tylenol Tab) 650 mg Q6H PRN PO PAIN AND OR ELEVATED TEMP Last administered on 12/24/16 17:40; Admin Dose 650 MG; Start 12/23/16 at 14:30 Acetaminophen/ Hydrocodone Bitart ([place] (5/325)) 1 tab Q6H PRN PO PAIN LEVEL 6 -10 Last administered on 01/12/17 04:44; Admin Dose 1 TAB; Start 12/24/16 at 23:00 Pantoprazole (Protonix Tab) 40 mg DAILY@06 PO Last administered on 01/12/17 05:44; Admin Dose 40 MG; Start 12/26/16 at 06:00 Diagnostic Test (Pha) (Accu-Chek) 1 ea 02 XX ; Start 12/26/16 at 02:00 Digoxin (Digoxin) 0.125 mg DAILY PO Last administered on 01/12/17 08:11; Admin Dose 0.125 MG; Start 12/26/16 at 09:00 Mirtazapine (Remeron) 15 mg HS PO Last administered on 01/11/17 20:11; Admin Dose 15 MG; Start 12/26/16 at 21:00 Venlafaxine HCl (Effexor Xr) 150 mg BID PO Last administered on 01/12/17 08: 11; Admin Dose 150 MG; Start 12/26/16 at 09:00 Rifampin (Rifampin) 600 mg DAILY PO Last administered on 01/12/17 08:12; Admin Dose 600 MG; Start 12/27/16 at 14:00 Atorvastatin Calcium (Lipitor) 40 mg HS PO Last administered on 01/11/17 20: 09; Admin Dose 40 MG; Start 12/28/16 at 21:00 Metoprolol Succinate (Toprol Xl) 12.5 mg BID PO Last administered on 08:12; Admin Dose 12.5 MG; Start 12/28/16 at 21:30 Magnesium Hydroxide (Milk Of Mag) 30 ml HS PO Last administered on 01/10/17 21:18; Admin Dose 30 ML; Start 12/29/16 at 21:00 Polyethylene Glycol 17 gm 17 gm BID PO Last administered on 01/12/17 08:10; Admin Dose 17 GM; Start 01/02/17 at 21:00 Clindamycin HCl/ Dextrose (Cleocin 600 Mg/ D5W (Pmx)) 50 ml @ 50 mls/hr Q8 IVPB Last administered on 01/12/17 15:14; Admin Dose 50 MLS/HR; Start 01/08/17 at 22:00 Lactobacillus Acidophilus (Florajen3 Capsule) 1 each BID PO Last administered on 01/12/17 08:11; Admin Dose 1 EACH; Start 01/08/17 at 21:00 Hydralazine HCl (Apresoline) 10 mg Q8 PO Last administered on 01/12/17 15:22 ; Admin Dose 10 MG; Start 01/08/17 at 14:00 Hydrogen Peroxide (Hydrogen Peroxide) 1 applic Q12 TOP Last administered on 20:10; Admin Dose 1 APPLIC; Start 01/08/17 at 21:00 Silver Sulfadiazine (Thermazene 1% 25 Gm) 1 applic Q12 TOP Last administered on 01/11/17 20:10; Admin Dose 1 APPLIC; Start 01/08/17 at 21:00 Clopidogrel Bisulfate (plaVIX) 75 mg DAILY PO Last administered on 01/11/17t 10:03; Admin Dose 75 MG; Start 01/11/17 at 09:00 MIHAI JOSEPH MD Jan 12, 2017 15:54
[2017-01-12] MEDS: morphine 4 MG/ML VIAL IV PRN (17:47)
--- NOTE | 2017-01-12 19:05 | PN ---
DATE: 01/12/2017 SUBJECTIVE: No complaints. OBJECTIVE: VITAL SIGNS: Temperature 98.3, heart rate 63, respirations 18, blood pressure 121/59, saturation 94 % on room air. LABORATORY DATA: CBC was not done today. Chemistry: Blood sugar is almost under control. POC glu cose is 119 on one occasion and on another occasion it was 98. PHYSICAL EXAMINATION: HEART: Regular. LUNGS: Clear. SKIN: The wound was inspected. Picture was taken. DRESSING CHANGE: Granulation tissue is forming in the center of the wound. Remaining skin flaps we re alive. Central part of the wound has lost the skin because it was necrotic and was debrided. I changed the dressing myself. First hydrogen peroxide was used to clean it then a small amount of de bridement was performed, then washed with saline and then Silvadene cream was applied and dry dressi ng was applied. PLAN: A 76-year-old male who presented with swelling, cellulitis, abscess, right forehead, which gr ew MRSA. Antibiotic started appropriately. The patient has problem with renal function. Nephrolog y is on board. Later on antibiotic was changed. Local debridement was performed on the floor a cou ple of times. Eventually, the patient was taken to the OR and more extensive debridement was perfor med. Now the wound is much better and clear and barrel cleaner. A small amount of necrotic tissue is pres ent, may require some debridement on the floor or probably may require another debridement in the op erating room. For the time being, we will continue local dressing b.i.d. The patient continues to be on antibiotic, followed by infectious disease. Dictated By: ETHEL PHAN/ALBARO Conf#: [id number] DID#: [id number]
[2017-01-12] MEDS: ATORVASTATIN 40 MG TAB PO SCH (21:55)
[2017-01-12] MEDS: MAGNESIUM HYDROXIDE 30ML CUP PO SCH (21:55)
[2017-01-12] MEDS: MIRTAZAPINE 15 MG TAB PO SCH (21:56)
[2017-01-13 02:00] VITALS: BP 100/54; RESP 19
[2017-01-13] MEDS: ACCU-CHEK XX SCH (02:09)
[2017-01-13] MEDS: ALBUTEROL/IPRATROPIUM (NEB) 3 ML AMP HHN SCH ×4 (02:44→20:21)
[2017-01-13] MEDS: PANTOPRAZOLE (EC) 40 MG TAB PO SCH (05:41)
[2017-01-13] MEDS: CLINDAMYCIN 600 MG/D5W (PMX) 50 ML IVPB SCH ×2 (05:42→14:02)
[2017-01-13 06:00] LABS: ABNORMAL IP MESSAGE 1; BASOPHILS % 0.3 % (0.0-2.0); EOSINOPHILS # 0.2 10^3/ul (0.0-0.5); EOSINOPHILS % 2.9 % (0.0-7.0); HEMATOCRIT 30.3 % (42.0-52.0); HEMOGLOBIN 8.7 g/dl (14.0-18.0); LYMPHOCYTES # 1.1 10^3/ul (0.8-2.9); LYMPHOCYTES % 16.7 % (15.0-51.0); MEAN CORPUSCULAR HEMOGLOBIN 21.7 pg (29.0-33.0); MEAN CORPUSCULAR HGB CONC 28.7 g/dl (32.0-37.0); MEAN CORPUSCULAR VOLUME 75.6 fl (82.0-101.0); MEAN PLATELET VOLUME 9.7 fl (7.4-10.4); MONOCYTE # 0.6 10^3/ul (0.3-0.9); MONOCYTES % 9.6 % (0.0-11.0); NEUTROPHIL # 4.6 10^3/ul (1.6-7.5); NEUTROPHILS % 70.2 % (39.0-77.0); PLATELET COUNT 166 10^3/UL (140-415); POSITIVE DIFF @See below; RED BLOOD COUNT 4.01 10^6/ul (4.70-6.10); RED CELL DISTRIBUTION WIDTH 20.9 % (11.5-14.5); WHITE BLOOD COUNT 6.5 10^3/ul (4.8-10.8)
[2017-01-13] MEDS: LEVOTHYROXINE 150 MCG TAB PO SCH (06:20)
[2017-01-13 06:48] LABS: CALCIUM 9.2 mg/dl (8.4-10.2); CREATININE 1.79 mg/dl (0.61-1.24); POTASSIUM 4.4 mmol/L (3.5-5.1)
[2017-01-13 07:56] VITALS: BP 123/70; RESP 17
[2017-01-13] MEDS: INSULIN ASPART [NOVOLOG] 3 ML PEN SC SCH ×7 (08:00→21:00)
[2017-01-13] MEDS: DIGOXIN 0.125 MG TAB PO SCH (08:15)
[2017-01-13] MEDS: METOPROLOL (XL) 25 MG TAB PO SCH ×2 (08:15→21:46)
[2017-01-13] MEDS: L ACIDOPHIL/B LACTIS/B LONGUM CAPSULE PO SCH ×2 (08:26→21:46)
[2017-01-13] MEDS: RIFAMPIN 300 MG CAP PO SCH (08:26)
[2017-01-13] MEDS: CLOPIDOGREL 75 MG TAB PO SCH (08:26)
[2017-01-13] MEDS: GLIMEPIRIDE 2 MG TAB PO SCH (08:27)
[2017-01-13] MEDS: VENLAFAXINE (XR) 75 MG CAP PO SCH ×2 (08:27→21:46)
[2017-01-13] MEDS: HYDROGEN PEROXIDE 118 ML TOP SCH ×2 (08:28→21:47)
[2017-01-13] MEDS: POLYETHYLENE GLYCOL 17 GM PACKET PO SCH ×2 (08:28→21:42)
[2017-01-13] MEDS: SILVER SULFADIAZINE 1% 25 GM CR TOP SCH ×2 (08:29→21:47)
--- NOTE | 2017-01-13 11:50 | PN ---
Date/Time of Note Date/Time of Note DATE: 01/13/17 TIME: 11:49 Assessment/Plan VTE Prophylaxis VTE Prophylaxis Intervention: other Lines/Catheters IV [facility] Urinary Cath still in place: No Assessment/Plan Assessment/Plan - Scalp cellulitis/abscess. S/p I&D 01/05. Wound cx +MRSA. Continue Clindamycin. Dr. Oliva is following in infection disease consultation. Dr. Saldivar is following in general surgery. - Ischemic cardiomyopathy with ejection fraction of 30% per last echo, continue Coreg per cardiology recs. Dr. Choudhury is following in cardiology consultation. - Bradycardia. Status post Lexiscan with no ischemia, continue telemetry monitoring. - Chronic kidney disease stage III. Monitor renal function and avoid nephrotoxic drugs. - Coronary artery disease with history of stent placement. - Chronic obstructive pulmonary disease. - Diabetes mellitus, hemoglobin A1c is 6.6, continue Amaryl and NovoLog per sliding scale. 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 Further recommendations based on clinical course. Plan of care discussed with Dr. Giron Subjective 24 Hr Interval Summary Respiratory: no complaints Cardiovascular: no complaints Gastrointestinal: no complaints Genitourinary: no complaints Musculoskeletal: no complaints Skin: other Exam/Review of Systems Vital Signs Vitals Vital Signs Date Time Temp Pulse Resp B/P Pulse Ox O2 Delivery O2 Flow Rate FiO2 01/13/17 08:11 74 20 97 21 01/13/17 07:56 98.0 123/70 01/12/17 14:30 Room Air Intake and Output 01/12/17 01/12/17 01/13/17 14:59 22:59 06:59 Intake Total 550 ml 500 ml Output Total 300 ml 500 ml Balance -300 ml 550 ml 0 ml Exam Constitutional: alert, oriented, well developed Respiratory: clear to auscultation, normal air movement Cardiovascular: nl pulses, other (s1s2) Gastrointestinal: non-tender, soft Musculoskeletal: nl extremities to inspection Extremities: normal pulses Neurological: nl mental status, nl speech Results Result Diagram: 01/13/17 0542 01/13/17 0542 Results 24 hrs Laboratory Tests Test 01/12/17 17:41 01/12/17 21:59 01/13/17 05:42 01/13/17 08:22 Bedside Glucose 119 132 108 White Blood Count 6.5 Red Blood Count 4.01 L Hemoglobin 8.7 L Hematocrit 30.3 L Mean Corpuscular Volume 75.6 L Mean Corpuscular Hemoglobin 21.7 L Mean Corpuscular Hemoglobin Concent 28.7 L Red Cell Distribution Width 20.9 H Platelet Count 166 Mean Platelet Volume 9.7 Neutrophils % 70.2 Lymphocytes % 16.7 Monocytes % 9.6 Eosinophils % 2.9 Basophils % 0.3 Nucleated Red Blood Cells % 0.0 Neutrophils # 4.6 Lymphocytes # 1.1 Monocytes # 0.6 Eosinophils # 0.2 Basophils # 0.0 Nucleated Red Blood Cells # 0.0 Sodium Level 143 Potassium Level 4.4 Chloride Level 106 Carbon Dioxide Level 27 Anion Gap 14 Blood Urea Nitrogen 30 H Creatinine 1.79 H Glucose Level 113 Calcium Level 9.2 Test 01/13/17 11:15 Bedside Glucose 131 Medications Medications Current Medications Morphine Sulfate (morphine) 4 mg Q4H PRN IV PAIN LEVEL 6-10 Last administered on 01/12/17 17:47; Admin Dose 4 MG; Start 12/23/16 at 05:00 Miscellaneous Information 1 ea NOTE XX ; Start 12/23/16 at 08:00 Glucose (Glutose) 15 gm Q15M PRN PO DECREASED GLUCOSE; Start 12/23/16 at 08:00 Glucose (Glutose) 22.5 gm Q15M PRN PO DECREASED GLUCOSE; Start 12/23/16 at 08: 00 Dextrose (D50w Syringe) 25 ml Q15M PRN IV DECREASED GLUCOSE; Start 12/23/16 at 08:00 Dextrose (D50w Syringe) 50 ml Q15M PRN IV DECREASED GLUCOSE; Start 12/23/16 at 08:00 Glucagon (Glucagen) 1 mg Q15M PRN IM DECREASED GLUCOSE; Start 12/23/16 at 08: 00 Glucose (Glutose) 15 gm Q15M PRN BUCCAL DECREASED GLUCOSE; Start 12/23/16 at 08:00 Acetaminophen (Tylenol Tab) 650 mg Q6H PRN PO PAIN AND OR ELEVATED TEMP Last administered on 12/24/16 17:40; Admin Dose 650 MG; Start 12/23/16 at 14:30 Acetaminophen/ Hydrocodone Bitart ([place] (5/325)) 1 tab Q6H PRN PO PAIN LEVEL 6 -10 Last administered on 01/12/17 04:44; Admin Dose 1 TAB; Start 12/24/16 at 23:00 Pantoprazole (Protonix Tab) 40 mg DAILY@06 PO Last administered on 01/13/17 05:41; Admin Dose 40 MG; Start 12/26/16 at 06:00 Diagnostic Test (Pha) (Accu-Chek) 1 ea 02 XX Last administered on 01/13/17 02 :09; Admin Dose 1 EA; Start 12/26/16 at 02:00 Digoxin (Digoxin) 0.125 mg DAILY PO Last administered on 01/12/17 08:11; Admin Dose 0.125 MG; Start 12/26/16 at 09:00 Mirtazapine (Remeron) 15 mg HS PO Last administered on 01/12/17 21:56; Admin Dose 15 MG; Start 12/26/16 at 21:00 Venlafaxine HCl (Effexor Xr) 150 mg BID PO Last administered on 01/13/17 08: 27; Admin Dose 150 MG; Start 12/26/16 at 09:00 Rifampin (Rifampin) 600 mg DAILY PO Last administered on 01/13/17 08:26; Admin Dose 600 MG; Start 12/27/16 at 14:00 Atorvastatin Calcium (Lipitor) 40 mg HS PO Last administered on 01/12/17 21: 55; Admin Dose 40 MG; Start 12/28/16 at 21:00 Metoprolol Succinate (Toprol Xl) 12.5 mg BID PO Last administered on 21:56; Admin Dose 12.5 MG; Start 12/28/16 at 21:30 Magnesium Hydroxide (Milk Of Mag) 30 ml HS PO Last administered on 01/12/17 21:55; Admin Dose 30 ML; Start 12/29/16 at 21:00 Polyethylene Glycol 17 gm 17 gm BID PO Last administered on 01/13/17 08:28; Admin Dose 17 GM; Start 01/02/17 at 21:00 Clindamycin HCl/ Dextrose (Cleocin 600 Mg/ D5W (Pmx)) 50 ml @ 50 mls/hr Q8 IVPB Last administered on 01/13/17 05:42; Admin Dose 50 MLS/HR; Start 01/08/17 at 22:00 Lactobacillus Acidophilus (Florajen3 Capsule) 1 each BID PO Last administered on 01/13/17 08:26; Admin Dose 1 EACH; Start 01/08/17 at 21:00 Hydralazine HCl (Apresoline) 10 mg Q8 PO Last administered on 01/13/17 05:45 ; Admin Dose 10 MG; Start 01/08/17 at 14:00 Hydrogen Peroxide (Hydrogen Peroxide) 1 applic Q12 TOP Last administered on 08:28; Admin Dose 1 APPLIC; Start 01/08/17 at 21:00 Silver Sulfadiazine (Thermazene 1% 25 Gm) 1 applic Q12 TOP Last administered on 01/13/17 08:29; Admin Dose 1 APPLIC; Start 01/08/17 at 21:00 Clopidogrel Bisulfate (plaVIX) 75 mg DAILY PO Last administered on 01/13/17 08:26; Admin Dose 75 MG; Start 01/11/17 at 09:00 SOFÍA CHU Jan 13, 2017 11:50
[2017-01-13 14:00] VITALS: BP 135/61; RESP 18
[2017-01-13] MEDS: morphine 4 MG/ML VIAL IV PRN (14:02)
--- NOTE | 2017-01-13 14:20 | PN ---
DATE: 01/13/2017 SUBJECTIVE: No new complaint, no event overnight. OBJECTIVE GENERAL: Awake, alert, oriented. VITAL SIGNS: Temperature 98, heart rate 52 once and another repeat of 74, regular, respirations to include blood pressure 123/73. Saturation 96% on room air. LABORATORY DATA: WBC 6500 with 70% neutrophils, which is normal. Hemoglobin and hematocrit is stab le but low. Chemistry: Sodium, potassium normal. BUN 30, creatinine 1.79 is high, calcium is 9.2. HEART: Regular. LUNGS: Clear. ABDOMEN: Soft. EXTREMITIES: Legs no calf tenderness. Wound dressing was changed. It is the same as yesterday. Granulation tissue is forming at the cent er of the wound. ASSESSMENT AND PLAN: A 76-year-old gentleman who presented with cellulitis and abscess of the right forehead with severe swelling. MRSA was grown from the culture. Patient started on antibiotic marvin ropriately and local dressing was changed every day, a couple of times. Local debridement of the wo und was done by me. Eventually required debridement, excision in the operating room a few days ago. The culture in the operating room also grew MRSA. The patient on appropriate antibiotic consideri ng the abnormal liver function. Infectious disease is controlling and following. Video Game Programmer edouard klein and die tripper is following as well. PLAN: Continue current care with dressing change b.i.d. with hydrogen peroxide and normal saline an d Silvadene cream. I advised the patient to take a shower and do hydro debridement of the wound wit h pressure from the shower handle; that is going to help. Patient on 2 antibiotics, rifampin and cl indamycin. The patient needs home health to take care of the wound at home if she goes home. Other brennan, she will be in the hospital for wound care until the wound is getting much better. Dictated By: ETHEL PHAN/ALBARO Conf#: [id number] DID#: [id number]
--- NOTE | 2017-01-13 15:19 | CONS ---
Date/Time of Note Date/Time of Note DATE: 01/13/17 TIME: 15:18 Assessment/Plan Assessment/Plan Chief Complaint/Hosp Course pt admitted with forehead cellulitis with self draining abscess, seen by ID, started on IV abx, noted to have Rising Cr and renal has been consulted for MELINDA on CKD Problems: Additional Assessment/Plan 1. MELINDA on CKD Due to prerenal azotemia + ATN 2. MRSA forehead cellulitis with Abscess s/p Right scalp wound debridement bY G surg on 01/05/17-- still draining-pus/blood per staff- MRSA wound.ID follows 3. H/o CKD III Due to HTN 4. HTN 5. Bipolar 6. DM II Plan : IV abx vancomycin , renally dose it - Cr 1.79- same as on admission -BP stable Lisinopril stopped due to bump in Cr - BP controlled, will resume it at the time of discharge Renal US c/w medical renal disease, no hydronephrosis s/p Right scalp wound debridement on 01/05/17- wound cx grew MRSA- wound care, IV a bx as per ID will follow up Consultation Date/Type/Reason Admit Date/Time Dec 23, 2016 at 02:25 Initial Consult Date 12/28/16 Type of Consultation: NEPHROLOGY Referring Provider: JOS FOSTER MD Exam/Review of Systems Vital Signs Vitals Vital Signs Date Time Temp Pulse Resp B/P Pulse Ox O2 Delivery O2 Flow Rate FiO2 01/13/17 14:47 78 20 97 21 01/13/17 14:00 97.9 135/61 01/12/17 14:30 Room Air Intake and Output 01/12/17 01/12/17 01/13/17 15:00 23:00 07:00 Intake Total 550 ml 500 ml Output Total 300 ml 500 ml Balance -300 ml 550 ml 0 ml Exam GENERAL: Well-developed, elderly man in no distress. HEENT: Head atraumatic, normocephalic. Sclerae anicteric. Buccal mucosa dry. NECK: Supple. CHEST: Rise symmetrical. Breath sounds diminished to bases. HEART: S1, S2. ABDOMEN: Soft, bowel tones present. EXTREMITIES: Without cyanosis. SKIN: Dry, pale, forehead dsg intact. Results Result Diagram: 01/13/17 0542 01/13/17 0542 Results 24 hrs Laboratory Tests Test 01/12/17 17:41 01/12/17 21:59 01/13/17 05:42 01/13/17 08:22 Bedside Glucose 119 132 108 White Blood Count 6.5 Red Blood Count 4.01 L Hemoglobin 8.7 L Hematocrit 30.3 L Mean Corpuscular Volume 75.6 L Mean Corpuscular Hemoglobin 21.7 L Mean Corpuscular Hemoglobin Concent 28.7 L Red Cell Distribution Width 20.9 H Platelet Count 166 Mean Platelet Volume 9.7 Neutrophils % 70.2 Lymphocytes % 16.7 Monocytes % 9.6 Eosinophils % 2.9 Basophils % 0.3 Nucleated Red Blood Cells % 0.0 Neutrophils # 4.6 Lymphocytes # 1.1 Monocytes # 0.6 Eosinophils # 0.2 Basophils # 0.0 Nucleated Red Blood Cells # 0.0 Sodium Level 143 Potassium Level 4.4 Chloride Level 106 Carbon Dioxide Level 27 Anion Gap 14 Blood Urea Nitrogen 30 H Creatinine 1.79 H Glucose Level 113 Calcium Level 9.2 Test 01/13/17 11:15 Bedside Glucose 131 Medications Medications Current Medications Morphine Sulfate (morphine) 4 mg Q4H PRN IV PAIN LEVEL 6-10 Last administered on 01/13/17 14:02; Admin Dose 4 MG; Start 12/23/16 at 05:00 Miscellaneous Information 1 ea NOTE XX ; Start 12/23/16 at 08:00 Glucose (Glutose) 15 gm Q15M PRN PO DECREASED GLUCOSE; Start 12/23/16 at 08:00 Glucose (Glutose) 22.5 gm Q15M PRN PO DECREASED GLUCOSE; Start 12/23/16 at 08: 00 Dextrose (D50w Syringe) 25 ml Q15M PRN IV DECREASED GLUCOSE; Start 12/23/16 at 08:00 Dextrose (D50w Syringe) 50 ml Q15M PRN IV DECREASED GLUCOSE; Start 12/23/16 at 08:00 Glucagon (Glucagen) 1 mg Q15M PRN IM DECREASED GLUCOSE; Start 12/23/16 at 08: 00 Glucose (Glutose) 15 gm Q15M PRN BUCCAL DECREASED GLUCOSE; Start 12/23/16 at 08:00 Acetaminophen (Tylenol Tab) 650 mg Q6H PRN PO PAIN AND OR ELEVATED TEMP Last administered on 12/24/16 17:40; Admin Dose 650 MG; Start 12/23/16 at 14:30 Acetaminophen/ Hydrocodone Bitart ([place] (5/325)) 1 tab Q6H PRN PO PAIN LEVEL 6 -10 Last administered on 01/12/17 04:44; Admin Dose 1 TAB; Start 12/24/16 at 23:00 Pantoprazole (Protonix Tab) 40 mg DAILY@06 PO Last administered on 01/13/17 05:41; Admin Dose 40 MG; Start 12/26/16 at 06:00 Diagnostic Test (Pha) (Accu-Chek) 1 ea 02 XX Last administered on 01/13/17 02 :09; Admin Dose 1 EA; Start 12/26/16 at 02:00 Digoxin (Digoxin) 0.125 mg DAILY PO Last administered on 01/12/17 08:11; Admin Dose 0.125 MG; Start 12/26/16 at 09:00 Mirtazapine (Remeron) 15 mg HS PO Last administered on 01/12/17 21:56; Admin Dose 15 MG; Start 12/26/16 at 21:00 Venlafaxine HCl (Effexor Xr) 150 mg BID PO Last administered on 01/13/17 08: 27; Admin Dose 150 MG; Start 12/26/16 at 09:00 Rifampin (Rifampin) 600 mg DAILY PO Last administered on 01/13/17 08:26; Admin Dose 600 MG; Start 12/27/16 at 14:00 Atorvastatin Calcium (Lipitor) 40 mg HS PO Last administered on 01/12/17 21: 55; Admin Dose 40 MG; Start 12/28/16 at 21:00 Metoprolol Succinate (Toprol Xl) 12.5 mg BID PO Last administered on 21:56; Admin Dose 12.5 MG; Start 12/28/16 at 21:30 Magnesium Hydroxide (Milk Of Mag) 30 ml HS PO Last administered on 01/12/17 21:55; Admin Dose 30 ML; Start 12/29/16 at 21:00 Polyethylene Glycol 17 gm 17 gm BID PO Last administered on 01/13/17 08:28; Admin Dose 17 GM; Start 01/02/17 at 21:00 Clindamycin HCl/ Dextrose (Cleocin 600 Mg/ D5W (Pmx)) 50 ml @ 50 mls/hr Q8 IVPB Last administered on 01/13/17 14:02; Admin Dose 50 MLS/HR; Start 01/08/17 at 22:00 Lactobacillus Acidophilus (Florajen3 Capsule) 1 each BID PO Last administered on 01/13/17 08:26; Admin Dose 1 EACH; Start 01/08/17 at 21:00 Hydralazine HCl (Apresoline) 10 mg Q8 PO Last administered on 01/13/17 14:04 ; Admin Dose 10 MG; Start 01/08/17 at 14:00 Hydrogen Peroxide (Hydrogen Peroxide) 1 applic Q12 TOP Last administered on 08:28; Admin Dose 1 APPLIC; Start 01/08/17 at 21:00 Silver Sulfadiazine (Thermazene 1% 25 Gm) 1 applic Q12 TOP Last administered on 01/13/17 08:29; Admin Dose 1 APPLIC; Start 01/08/17 at 21:00 Clopidogrel Bisulfate (plaVIX) 75 mg DAILY PO Last administered on 01/13/17 08:26; Admin Dose 75 MG; Start 01/11/17 at 09:00 MIHAI JOSEPH MD Jan 13, 2017 15:19
--- NOTE | 2017-01-13 17:13 | CONS ---
Date/Time of Note Date/Time of Note DATE: 01/13/17 TIME: 16:58 Assessment/Plan Assessment/Plan Chief Complaint/Hosp Course ID PROGRESS NOTE CURRENT ABX=> 01/08/17 Rifampin #18 + Clindamycin #6 s/p Vanco IV 24H INTERVAL SUMMARY * Awake, alert, responsive, VSS, NAD, no c/o, Dr. 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 Methicillin-resistant Staphylococcus aureus cellulitis of the forehead with self- draining abscess. 2. Hypertension. 3. Chronic obstructive pulmonary disease. 4. Ischemic cardiomyopathy. 5. Chronic kidney disease stage III. INVASIVES: PIV ABX ALLERGY: IODINE CURRENT ABX: =>Clinda IV + Rifampin ID RECOMMENDATIONS 1. When cleared for DC, patient may DC on Clindamycin 450mg po Q8H x 14 days + Rifampin 600mg po daily x14 . . . Problems: Consultation Date/Type/Reason Admit Date/Time Dec 23, 2016 at 02:25 Initial Consult Date 12/28/16 Referring Provider: JOS FOSTER MD Exam/Review of Systems Vital Signs Vitals Vital Signs Date Time Temp Pulse Resp B/P Pulse Ox O2 Delivery O2 Flow Rate FiO2 01/13/17 14:47 78 20 97 21 01/13/17 14:00 97.9 135/61 01/12/17 14:30 Room Air Intake and Output 01/12/17 01/12/17 01/13/17 15:00 23:00 07:00 Intake Total 550 ml 500 ml Output Total 300 ml 500 ml Balance -300 ml 550 ml 0 ml Results Result Diagram: 01/13/17 0542 01/13/17 0542 Results 24 hrs Laboratory Tests Test 01/12/17 17:41 01/12/17 21:59 01/13/17 05:42 01/13/17 08:22 Bedside Glucose 119 132 108 White Blood Count 6.5 Red Blood Count 4.01 L Hemoglobin 8.7 L Hematocrit 30.3 L Mean Corpuscular Volume 75.6 L Mean Corpuscular Hemoglobin 21.7 L Mean Corpuscular Hemoglobin Concent 28.7 L Red Cell Distribution Width 20.9 H Platelet Count 166 Mean Platelet Volume 9.7 Neutrophils % 70.2 Lymphocytes % 16.7 Monocytes % 9.6 Eosinophils % 2.9 Basophils % 0.3 Nucleated Red Blood Cells % 0.0 Neutrophils # 4.6 Lymphocytes # 1.1 Monocytes # 0.6 Eosinophils # 0.2 Basophils # 0.0 Nucleated Red Blood Cells # 0.0 Sodium Level 143 Potassium Level 4.4 Chloride Level 106 Carbon Dioxide Level 27 Anion Gap 14 Blood Urea Nitrogen 30 H Creatinine 1.79 H Glucose Level 113 Calcium Level 9.2 Test 01/13/17 11:15 Bedside Glucose 131 Medications Medications Current Medications Morphine Sulfate (morphine) 4 mg Q4H PRN IV PAIN LEVEL 6-10 Last administered on 01/13/17 14:02; Admin Dose 4 MG; Start 12/23/16 at 05:00 Miscellaneous Information 1 ea NOTE XX ; Start 12/23/16 at 08:00 Glucose (Glutose) 15 gm Q15M PRN PO DECREASED GLUCOSE; Start 12/23/16 at 08:00 Glucose (Glutose) 22.5 gm Q15M PRN PO DECREASED GLUCOSE; Start 12/23/16 at 08: 00 Dextrose (D50w Syringe) 25 ml Q15M PRN IV DECREASED GLUCOSE; Start 12/23/16 at 08:00 Dextrose (D50w Syringe) 50 ml Q15M PRN IV DECREASED GLUCOSE; Start 12/23/16 at 08:00 Glucagon (Glucagen) 1 mg Q15M PRN IM DECREASED GLUCOSE; Start 12/23/16 at 08: 00 Glucose (Glutose) 15 gm Q15M PRN BUCCAL DECREASED GLUCOSE; Start 12/23/16 at 08:00 Acetaminophen (Tylenol Tab) 650 mg Q6H PRN PO PAIN AND OR ELEVATED TEMP Last administered on 12/24/16 17:40; Admin Dose 650 MG; Start 12/23/16 at 14:30 Acetaminophen/ Hydrocodone Bitart ([place] (5/325)) 1 tab Q6H PRN PO PAIN LEVEL 6 -10 Last administered on 01/12/17 04:44; Admin Dose 1 TAB; Start 12/24/16 at 23:00 Pantoprazole (Protonix Tab) 40 mg DAILY@06 PO Last administered on 01/13/17 05:41; Admin Dose 40 MG; Start 12/26/16 at 06:00 Diagnostic Test (Pha) (Accu-Chek) 1 ea 02 XX Last administered on 01/13/17 02 :09; Admin Dose 1 EA; Start 12/26/16 at 02:00 Digoxin (Digoxin) 0.125 mg DAILY PO Last administered on 01/12/17 08:11; Admin Dose 0.125 MG; Start 12/26/16 at 09:00 Mirtazapine (Remeron) 15 mg HS PO Last administered on 01/12/17 21:56; Admin Dose 15 MG; Start 12/26/16 at 21:00 Venlafaxine HCl (Effexor Xr) 150 mg BID PO Last administered on 01/13/17 08: 27; Admin Dose 150 MG; Start 12/26/16 at 09:00 Rifampin (Rifampin) 600 mg DAILY PO Last administered on 01/13/17 08:26; Admin Dose 600 MG; Start 12/27/16 at 14:00 Atorvastatin Calcium (Lipitor) 40 mg HS PO Last administered on 01/12/17 21: 55; Admin Dose 40 MG; Start 12/28/16 at 21:00 Metoprolol Succinate (Toprol Xl) 12.5 mg BID PO Last administered on 21:56; Admin Dose 12.5 MG; Start 12/28/16 at 21:30 Magnesium Hydroxide (Milk Of Mag) 30 ml HS PO Last administered on 01/12/17 21:55; Admin Dose 30 ML; Start 12/29/16 at 21:00 Polyethylene Glycol 17 gm 17 gm BID PO Last administered on 01/13/17 08:28; Admin Dose 17 GM; Start 01/02/17 at 21:00 Clindamycin HCl/ Dextrose (Cleocin 600 Mg/ D5W (Pmx)) 50 ml @ 50 mls/hr Q8 IVPB Last administered on 01/13/17 14:02; Admin Dose 50 MLS/HR; Start 01/08/17 at 22:00 Lactobacillus Acidophilus (Florajen3 Capsule) 1 each BID PO Last administered on 01/13/17 08:26; Admin Dose 1 EACH; Start 01/08/17 at 21:00 Hydralazine HCl (Apresoline) 10 mg Q8 PO Last administered on 01/13/17 14:04 ; Admin Dose 10 MG; Start 01/08/17 at 14:00 Hydrogen Peroxide (Hydrogen Peroxide) 1 applic Q12 TOP Last administered on 08:28; Admin Dose 1 APPLIC; Start 01/08/17 at 21:00 Silver Sulfadiazine (Thermazene 1% 25 Gm) 1 applic Q12 TOP Last administered on 01/13/17 08:29; Admin Dose 1 APPLIC; Start 01/08/17 at 21:00 Clopidogrel Bisulfate (plaVIX) 75 mg DAILY PO Last administered on 01/13/17 08:26; Admin Dose 75 MG; Start 01/11/17 at 09:00 ISABELA SCOTT NP Jan 13, 2017 17:08
--- NOTE | 2017-01-13 17:57 | CONS ---
Date/Time of Note Date/Time of Note DATE: 01/13/17 TIME: 17:55 Assessment/Plan Assessment/Plan Chief Complaint/Hosp Course IMPRESSION: 1. Preoperative evaluation prior to surgical intervention for scalp abscess.- negative trop x 3. No ischemia by keiry this admit. Thus moderate CV risk, ok to proceed with debridement of scalp abscess. Now post-op s/p I+D 2. History of ischemic cardiomyopathy, last known ejection fraction approximately 40% by echo 2016. 30-35% by echo this year. No ischemia by keiry with EF underestimated. 3. Hypertension. 4. History of percutaneous transluminal coronary angioplasty and stent placement multiple times with most recent approximately 2 to 3 years prior per patient on Plavix. 5. History of transcatheter aortic valve replacement in 2016. 6. Scalp abscess. 7. Diabetes mellitus. 8. Chronic obstructive pulmonary disease. 9. Ongoing tobacco usage. 10. Anemia. 11. Renal failure. 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 Recc: -Tele -local wound care -Continue abx;'s -Continue BB/hydralazine/plavix/digoxin Problems: Consultation Date/Type/Reason Admit Date/Time Dec 23, 2016 at 02:25 Initial Consult Date 12/27/2016 Type of Consultation: cardiology Reason for Consultation cardiomyopathy Referring Provider: JOS FOSTER MD Exam/Review of Systems Vital Signs Vitals Vital Signs Date Time Temp Pulse Resp B/P Pulse Ox O2 Delivery O2 Flow Rate FiO2 01/13/17 14:47 78 20 97 21 01/13/17 14:00 97.9 135/61 01/12/17 14:30 Room Air Intake and Output 01/12/17 01/12/17 01/13/17 15:00 23:00 07:00 Intake Total 550 ml 500 ml Output Total 300 ml 500 ml Balance -300 ml 550 ml 0 ml Exam Review of Systems: CONSTITUTIONAL: No fevers, chills. PULMONARY: No sob CARDIOVASCULAR: No chest pain/palpitations GASTROINTESTINAL: No nausea/vomiting. GENITOURINARY: No hematuria/dysuria. MUSCULOSKELETAL: No myagias/arthalgias. PSYCHIATRIC: The patient denies depression. NEUROLOGIC: No weakness Constitutional: alert, oriented Psych: no complaints Head: other (scalp covered by dressing) Respiratory: clear to auscultation Cardiovascular: regular rate and rhythm Gastrointestinal: non-tender, soft Musculoskeletal: muscle tone (normal) Extremities: edema (none) Neurological: other (No focal deficits) Results Result Diagram: 01/13/17 0542 01/13/17 0542 Results 24 hrs Laboratory Tests Test 01/12/17 21:59 01/13/17 05:42 01/13/17 08:22 01/13/17 11:15 Bedside Glucose 132 108 131 White Blood Count 6.5 Red Blood Count 4.01 L Hemoglobin 8.7 L Hematocrit 30.3 L Mean Corpuscular Volume 75.6 L Mean Corpuscular Hemoglobin 21.7 L Mean Corpuscular Hemoglobin Concent 28.7 L Red Cell Distribution Width 20.9 H Platelet Count 166 Mean Platelet Volume 9.7 Neutrophils % 70.2 Lymphocytes % 16.7 Monocytes % 9.6 Eosinophils % 2.9 Basophils % 0.3 Nucleated Red Blood Cells % 0.0 Neutrophils # 4.6 Lymphocytes # 1.1 Monocytes # 0.6 Eosinophils # 0.2 Basophils # 0.0 Nucleated Red Blood Cells # 0.0 Sodium Level 143 Potassium Level 4.4 Chloride Level 106 Carbon Dioxide Level 27 Anion Gap 14 Blood Urea Nitrogen 30 H Creatinine 1.79 H Glucose Level 113 Calcium Level 9.2 Test 01/13/17 17:21 Bedside Glucose 110 Medications Medications Current Medications Morphine Sulfate (morphine) 4 mg Q4H PRN IV PAIN LEVEL 6-10 Last administered on 01/13/17t 14:02; Admin Dose 4 MG; Start 12/23/16 at 05:00 Miscellaneous Information 1 ea NOTE XX ; Start 12/23/16 at 08:00 Glucose (Glutose) 15 gm Q15M PRN PO DECREASED GLUCOSE; Start 12/23/16 at 08:00 Glucose (Glutose) 22.5 gm Q15M PRN PO DECREASED GLUCOSE; Start 12/23/16 at 08: 00 Dextrose (D50w Syringe) 25 ml Q15M PRN IV DECREASED GLUCOSE; Start 12/23/16 at 08:00 Dextrose (D50w Syringe) 50 ml Q15M PRN IV DECREASED GLUCOSE; Start 12/23/16 at 08:00 Glucagon (Glucagen) 1 mg Q15M PRN IM DECREASED GLUCOSE; Start 12/23/16 at 08: 00 Glucose (Glutose) 15 gm Q15M PRN BUCCAL DECREASED GLUCOSE; Start 12/23/16 at 08:00 Acetaminophen (Tylenol Tab) 650 mg Q6H PRN PO PAIN AND OR ELEVATED TEMP Last administered on 12/24/16 17:40; Admin Dose 650 MG; Start 12/23/16 at 14:30 Acetaminophen/ Hydrocodone Bitart ([place] (5/325)) 1 tab Q6H PRN PO PAIN LEVEL 6 -10 Last administered on 01/12/17 04:44; Admin Dose 1 TAB; Start 12/24/16 at 23:00 Pantoprazole (Protonix Tab) 40 mg DAILY@06 PO Last administered on 01/13/17 05:41; Admin Dose 40 MG; Start 12/26/16 at 06:00 Diagnostic Test (Pha) (Accu-Chek) 1 ea 02 XX Last administered on 01/13/17 02 :09; Admin Dose 1 EA; Start 12/26/16 at 02:00 Digoxin (Digoxin) 0.125 mg DAILY PO Last administered on 01/12/17 08:11; Admin Dose 0.125 MG; Start 12/26/16 at 09:00 Mirtazapine (Remeron) 15 mg HS PO Last administered on 01/12/17 21:56; Admin Dose 15 MG; Start 12/26/16 at 21:00 Venlafaxine HCl (Effexor Xr) 150 mg BID PO Last administered on 01/13/17 08: 27; Admin Dose 150 MG; Start 12/26/16 at 09:00 Rifampin (Rifampin) 600 mg DAILY PO Last administered on 01/13/17 08:26; Admin Dose 600 MG; Start 12/27/16 at 14:00 Atorvastatin Calcium (Lipitor) 40 mg HS PO Last administered on 01/12/17 21: 55; Admin Dose 40 MG; Start 12/28/16 at 21:00 Metoprolol Succinate (Toprol Xl) 12.5 mg BID PO Last administered on 21:56; Admin Dose 12.5 MG; Start 12/28/16 at 21:30 Magnesium Hydroxide (Milk Of Mag) 30 ml HS PO Last administered on 01/12/17 21:55; Admin Dose 30 ML; Start 12/29/16 at 21:00 Polyethylene Glycol (Miralax) 17 gm BID PO Last administered on 01/13/17 08: 28; Admin Dose 17 GM; Start 01/02/17 at 21:00 Lactobacillus Acidophilus (Florajen3 Capsule) 1 each BID PO Last administered on 01/13/17 08:26; Admin Dose 1 EACH; Start 01/08/17 at 21:00 Hydralazine HCl (Apresoline) 10 mg Q8 PO Last administered on 01/13/17 14:04 ; Admin Dose 10 MG; Start 01/08/17 at 14:00 Hydrogen Peroxide (Hydrogen Peroxide) 1 applic Q12 TOP Last administered on 08:28; Admin Dose 1 APPLIC; Start 01/08/17 at 21:00 Silver Sulfadiazine (Thermazene 1% 25 Gm) 1 applic Q12 TOP Last administered on 01/13/17 08:29; Admin Dose 1 APPLIC; Start 01/08/17 at 21:00 Clopidogrel Bisulfate (plaVIX) 75 mg DAILY PO Last administered on 01/13/17 08:26; Admin Dose 75 MG; Start 01/11/17 at 09:00 Clindamycin HCl (Cleocin) 450 mg Q8 PO ; Start 01/13/17 at 22:00; Stop at 21:59 JACLYN RODRIGUEZ 18, 2017 17:57
[2017-01-13] MEDS: MAGNESIUM HYDROXIDE 30ML CUP PO SCH (21:42)
[2017-01-13] MEDS: ATORVASTATIN 40 MG TAB PO SCH (21:46)
[2017-01-13] MEDS: MIRTAZAPINE 15 MG TAB PO SCH (21:46)
[2017-01-13] MEDS: CLINDAMYCIN 150 MG CAP PO SCH (21:52)
[2017-01-14 01:13] VITALS: BP 116/58; RESP 18
[2017-01-14] MEDS: ALBUTEROL/IPRATROPIUM (NEB) 3 ML AMP HHN SCH ×3 (01:37→15:10)
[2017-01-14] MEDS: ACCU-CHEK XX SCH (02:00)
[2017-01-14] MEDS: PANTOPRAZOLE (EC) 40 MG TAB PO SCH (05:50)
[2017-01-14] MEDS: CLINDAMYCIN 150 MG CAP PO SCH ×2 (05:50→14:58)
[2017-01-14] MEDS: LEVOTHYROXINE 150 MCG TAB PO SCH (06:27)
[2017-01-14 06:29] LABS: BASOPHILS % 0.3 % (0.0-2.0); EOSINOPHILS # 0.2 10^3/ul (0.0-0.5); EOSINOPHILS % 3.8 % (0.0-7.0); HEMOGLOBIN 8.9 g/dl (14.0-18.0); LYMPHOCYTES # 1.1 10^3/ul (0.8-2.9); LYMPHOCYTES % 16.8 % (15.0-51.0); MEAN CORPUSCULAR HEMOGLOBIN 22.4 pg (29.0-33.0); MEAN CORPUSCULAR HGB CONC 29.7 g/dl (32.0-37.0); MEAN CORPUSCULAR VOLUME 75.6 fl (82.0-101.0); MEAN PLATELET VOLUME 9.8 fl (7.4-10.4); MONOCYTE # 0.6 10^3/ul (0.3-0.9); MONOCYTES % 8.7 % (0.0-11.0); NEUTROPHIL # 4.4 10^3/ul (1.6-7.5); NEUTROPHILS % 70.2 % (39.0-77.0); PLATELET COUNT 164 10^3/UL (140-415); RED BLOOD COUNT 3.97 10^6/ul (4.70-6.10); RED CELL DISTRIBUTION WIDTH 20.9 % (11.5-14.5); WHITE BLOOD COUNT 6.3 10^3/ul (4.8-10.8)
[2017-01-14 06:45] LABS: CALCIUM 9.3 mg/dl (8.4-10.2); CREATININE 1.71 mg/dl (0.61-1.24); POTASSIUM 4.7 mmol/L (3.5-5.1)
[2017-01-14] MEDS: INSULIN ASPART [NOVOLOG] 3 ML PEN SC SCH ×4 (08:00→12:44)
[2017-01-14 08:26] VITALS: BP 114/59; RESP 18
[2017-01-14] MEDS: GLIMEPIRIDE 2 MG TAB PO SCH (08:39)
[2017-01-14] MEDS: DIGOXIN 0.125 MG TAB PO SCH (09:00)
[2017-01-14] MEDS: VENLAFAXINE (XR) 75 MG CAP PO SCH (09:37)
[2017-01-14] MEDS: RIFAMPIN 300 MG CAP PO SCH (09:38)
[2017-01-14] MEDS: POLYETHYLENE GLYCOL 17 GM PACKET PO SCH (09:38)
[2017-01-14] MEDS: CLOPIDOGREL 75 MG TAB PO SCH (09:38)
[2017-01-14] MEDS: L ACIDOPHIL/B LACTIS/B LONGUM CAPSULE PO SCH (09:38)
[2017-01-14] MEDS: METOPROLOL (XL) 25 MG TAB PO SCH (09:39)
[2017-01-14] MEDS: SILVER SULFADIAZINE 1% 25 GM CR TOP SCH (09:42)
[2017-01-14] MEDS: HYDROGEN PEROXIDE 118 ML TOP SCH (09:43)
--- NOTE | 2017-01-14 11:33 | PDOCDIS ---
Discharge Instructions CONDITION Patient Condition: Stable HOME CARE INSTRUCTIONS: Special Diet: 1800 ADA, Mech Soft ACTIVITY: Activity Restrictions: Slowly Increase Activity Rest between Activity Avoid heavy lifting Do not Drive Do not operate Machinery Do not operate Power Tool Avoid Heavy Housework Bathing Restrictions: Sponge Bath FOLLOW UP/APPOINTMENTS Follow-up Plan FU with surgery as recommended. Call 911 or go to the nearest hospital if symptoms get worse. Rhett Giron/staff/pt. SOFÍA CHU Jan 14, 2017 11:33
[2017-01-14] MEDS: HYDROCODONE/APAP (5/325) TAB PO PRN (11:46)
--- NOTE | 2017-01-14 11:53 | PN ---
DATE: 01/14/2017 SUBJECTIVE: No new complaints. Apparently patient is supposed to be leaving the hospital and going to [facility] today. OBJECTIVE: GENERAL: Alert, awake, oriented. VITAL SIGNS: Temperature 97.9, heart rate 58, respiration 18, blood pressure 104/59, saturation 95% room air LABORATORY DATA: Sodium, potassium normal. BUN 32, creatinine 1.71. Calcium 9.3. Hematology: WB C 6300 with 70% neutrophils, normal shift, hemoglobin 8.9, hematocrit 30. HEART: Regular. LUNGS: Clear. ABDOMEN: Soft. Wound is gradually granulating. ASSESSMENT AND PLAN: This is a 76-year-old gentleman who was brought by the family to the emergency room on 12/23/2016 complaining of swelling of the right forehead redness, pain, tenderness and some discharge for 1 day's duration. Of course, the patient has a history of fall while ago. Culture f rom the drainage grew MRSA. The patient was started on antibiotics. The patient had many other com orbidities including renal problems and cardiology problems. Cardiology consult was obtained to barbara ar the patient for anesthesia and operating room. Meanwhile, dry dressing change was done on the [facility] b.i.d. and some local debridement was performed at the bedside, the patient was started on vanco mycin and later on due to increased creatinine was adjusted to Rifampin, and Daptomycin, even then l ater on clindamycin was added. Eventually, the patient was taken to the OR and thorough debridement was performed and necrotic tissue was removed including some skin postop dressing. PLAN: She will continue to be changed b.i.d. with application of hydrogen peroxide for cleansing th e the wound and then irrigation with normal saline and then application of Silvadene cream b.i.d. T he wound looks much better granulation tissue is forming. The dressing should be changed in the [facility] b.i.d. or also as needed. The technique should be as follows: The patient should be given pain medication half an hour before changing the dressing because it is going to be somewhat painful and is going to help the patient, this should be [place] 5 mg per 325 mg 1 or 2 tablets as needed. After removing the dressing, The remaining of the Silvadene cream should be placed and then hydrogen peroxide should be applied to the center of the wound and also under the skin flaps that the patient has. The patient has 4 small skin flaps. They should be raised and med ications applied to them too. After that should be debrided with normal saline. After that Silvade ne cream should be applied including under the flaps. This should be done once a day and the other time dressing should be changed and moist sponges with Dakin's solution strength 1/40% should be marvin lied. Also, the patient can take a shower and he can watch his head and can let the water with pressure fr om the handheld shower to go over the wound for a few minutes so that it creates mixed hydrodebridem ent. It is expected that gradually the wound will epithelialized from the sides to the center and c over the wound completely. Since the patient has been seen for Dr. Matos by me. Therefore, for followup they can send the suki ent to Dr. Raymon Matos' office in the presence of this hospital. Office phone [phone] and make a n appointment and send him over there. On Tuesdays or on Sunday morning as needed. Also, the in fectious disease. We have to give antibiotics, clindamycin and rifampin for the MRSA and the nephro logist is to give instructions for the kidney dosing. Dictated By: ETHEL PHAN/ALBARO Conf#: [id number] DID#: [id number]
--- NOTE | 2017-01-14 12:49 | DS ---
Date/Time of Note Date/Time of Note DATE: 01/14/17 TIME: 12:49 Discharge Summary Admission/Discharge Info Admit Date/Time Dec 23, 2016 at 02:25 Discharge Date/Time Patient Condition: Stable Hx of Present Illness Patient with diabetes, gait instability, cardiomyopathy and renal insufficiency comes in with swelling on his forehead. Patient was found to have evidence of cellulitis vs abscess and admitted for antibiotics and other therapy Hospital Course ID PROGRESS NOTE CURRENT ABX=> 01/08/17 Rifampin #18 + Clindamycin #6 s/p Vanco IV 24H INTERVAL SUMMARY * Awake, alert, responsive, VSS, NAD, no c/o, Dr. Saldivar notes reviewed -- pink granulation tissue is healthy, abscess opened up, DSG changed * DC planning in process PHYSICAL EXAMINATION: GENERAL: Awake, alert, VSS, NAD HEENT: Forehead DSG C/D/I, wound healing NECK: Trach midline CHEST: Rise symmetrical, without dyspnea on room air HEART: Pulse RRR ABDOMEN: Soft, benign EXTREMITIES: Warm, moves all extremities ID ASSESSMENT 76 yo M W/PMHX chronic right [employer]ETTLE [employer]ER territory infarct and tiny chronic left cerebellar infarct admit with: 1. Methicillin-resistant Staphylococcus aureus cellulitis of the forehead with self- draining abscess. 2. Hypertension. 3. Chronic obstructive pulmonary disease. 4. Ischemic cardiomyopathy. 5. Chronic kidney disease stage III. INVASIVES: PIV ABX ALLERGY: IODINE CURRENT ABX: =>Clinda IV + Rifampin ID RECOMMENDATIONS 1. When cleared for DC, patient may DC on Clindamycin 450mg po Q8H x 14 days + Rifampin 600mg po daily x14 . . . Home Meds Reported Medications Lisinopril* (Lisinopril*) 5 Mg Tablet, 5 MG PO DAILY, #30 TAB 08/04/15 Carvedilol* (Carvedilol*) 6.25 Mg Tablet, 6.25 MG PO BID, #60 TAB 08/04/15 Meclizine Hcl* (Antivert*) 25 Mg Tablet, 25 MG PO Q8H Y for VERTIGO, TAB 03/05/15 Nitroglycerin* (Nitroglycerin* SL) 0.4 Mg Tab.subl, 0.4 MG SL Q5MIN Y for CHEST PAIN, BOTTLE 03/05/15 Levothyroxine Sodium* (Levothyroxine Sodium*) 150 Mcg Tablet, 150 MCG PO BEFORE BREAKFAST, #30 TAB 03/05/15 Pantoprazole* (Pantoprazole*) 40 Mg Tablet., 40 MG PO DAILY, TAB 03/05/15 Clopidogrel Bisulfate (Clopidogrel) 75 Mg Tablet, 75 MG PO DAILY, #30 TAB 03/05/15 Mirtazapine* (Remeron*) 15 Mg Tablet, 15 MG PO HS, TAB 11/20/14 Venlafaxine Hcl* (Effexor XR*) 150 Mg Cap.sr.24h, 150 MG PO BID, CAP 11/20/14 Atorvastatin* (Atorvastatin*) 80 Mg Tablet, 80 MG PO HS, TAB 11/20/14 Glimepiride* (Glimepiride*) 2 Mg Tablet, 2 MG PO WITH BREAKFAST, TAB 05/23/14 Digoxin* (Digoxin*) 0.125 Mg Tab, 0.125 MG PO DAILY, TAB 04/09/14 Lamotrigine* (Lamictal*) 150 Mg Tablet, 150 MG PO BID, TAB 04/09/14 Follow-up Plan FU with surgery as recommended. Call 911 or go to the nearest hospital if symptoms get worse. Dw Dr Giron/staff/pt. Primary Care Provider Nathan Giron MD Pending Labs Laboratory Tests Test 01/13/17 17:21 01/13/17 21:38 01/14/17 05:42 01/14/17 08:31 Bedside Glucose 110mg/dL (70-220) 105mg/dL (70-220) 114mg/dL (70-220) White Blood Count 6.310^3/ul (4.8-10.8) Red Blood Count 3.9710^6/ul (4.70-6.10) Hemoglobin 8.9g/dl (14.0-18.0) Hematocrit 30.0% (42.0-52.0) Mean Corpuscular Volume 75.6fl (82.0-101.0) Mean Corpuscular Hemoglobin 22.4pg (29.0-33.0) Mean Corpuscular Hemoglobin Concent 29.7g/dl (32.0-37.0) Red Cell Distribution Width 20.9% (11.5-14.5) Platelet Count 97923^3/UL (140-415) Mean Platelet Volume 9.8fl (7.4-10.4) Neutrophils % 70.2% (39.0-77.0) Lymphocytes % 16.8% (15.0-51.0) Monocytes % 8.7% (0.0-11.0) Eosinophils % 3.8% (0.0-7.0) Basophils % 0.3% (0.0-2.0) Nucleated Red Blood Cells % 0.0/100WBC (0.0-0.0) Neutrophils # 4.410^3/ul (1.6-7.5) Lymphocytes # 1.110^3/ul (0.8-2.9) Monocytes # 0.610^3/ul (0.3-0.9) Eosinophils # 0.210^3/ul (0.0-0.5) Basophils # 0.010^3/ul (0.0-0.1) Nucleated Red Blood Cells # 0.010^3/ul (0.0-0.0) Sodium Level 140mmol/L (135-144) Potassium Level 4.7mmol/L (3.5-5.1) Chloride Level 106mmol/L (97-110) Carbon Dioxide Level 28mmol/L (21-31) Anion Gap 11 (8-16) Blood Urea Nitrogen 32mg/dl (7-20) Creatinine 1.71mg/dl (0.61-1.24) Glucose Level 100mg/dl (70-220) Calcium Level 9.3mg/dl (8.4-10.2) Test 01/14/17 12:24 Bedside Glucose 106mg/dL (70-220) SOFÍA CHU Jan 14, 2017 12:49
[2017-01-14 14:00] VITALS: BP 121/58; PULSE 62; RESP 18
--- NOTE | 2017-01-14 14:14 | CONS ---
Date/Time of Note Date/Time of Note DATE: 01/14/17 TIME: 14:13 Assessment/Plan Assessment/Plan Chief Complaint/Hosp Course IMPRESSION: 1. Preoperative evaluation prior to surgical intervention for scalp abscess.- negative trop x 3. No ischemia by keiry this admit. Thus moderate CV risk, ok to proceed with debridement of scalp abscess. Now post-op s/p I+D 2. History of ischemic cardiomyopathy, last known ejection fraction approximately 40% by echo 2016. 30-35% by echo this year. No ischemia by keiry with EF underestimated. 3. Hypertension. 4. History of percutaneous transluminal coronary angioplasty and stent placement multiple times with most recent approximately 2 to 3 years prior per patient on Plavix. 5. History of transcatheter aortic valve replacement in 2016. 6. Scalp abscess. 7. Diabetes mellitus. 8. Chronic obstructive pulmonary disease. 9. Ongoing tobacco usage. 10. Anemia. 11. Renal failure. 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 Recc: -Tele -local wound care -Continue abx;'s -Continue BB/hydralazine/plavix/digoxin Problems: Consultation Date/Type/Reason Admit Date/Time Dec 23, 2016 at 02:25 Initial Consult Date 12/27/2016 Type of Consultation: cardiology Reason for Consultation cardiomyopathy Referring Provider: JOS FOSTER MD Exam/Review of Systems Vital Signs Vitals Vital Signs Date Time Temp Pulse Resp B/P Pulse Ox O2 Delivery O2 Flow Rate FiO2 01/14/17 08:26 97.9 58 18 114/59 95 01/14/17 08:25 21 01/12/17 14:30 Room Air Intake and Output 01/13/17 01/13/17 01/14/17 15:00 23:00 07:00 Intake Total 1430 ml 250 ml Output Total 750 ml 450 ml Balance 680 ml -200 ml Exam Review of Systems: CONSTITUTIONAL: No fevers, chills. PULMONARY: No sob CARDIOVASCULAR: No chest pain/palpitations GASTROINTESTINAL: No nausea/vomiting. GENITOURINARY: No hematuria/dysuria. MUSCULOSKELETAL: No myagias/arthalgias. PSYCHIATRIC: The patient denies depression. NEUROLOGIC: No weakness Constitutional: alert Psych: no complaints Head: other (covered by dressing) ENMT: mucosa pink and moist Neck: jvd (9 cm water) Respiratory: clear to auscultation Cardiovascular: regular rate and rhythm Gastrointestinal: non-tender, soft Musculoskeletal: muscle weakness (mild generalized) Extremities: edema (none) Neurological: other (no focal deficits) Results Result Diagram: 01/14/1742 01/14/17 0542 Results 24 hrs Laboratory Tests Test 01/13/17 17:21 01/13/17 21:38 01/14/17 05:42 01/14/17 08:31 Bedside Glucose 110 105 114 White Blood Count 6.3 Red Blood Count 3.97 L Hemoglobin 8.9 L Hematocrit 30.0 L Mean Corpuscular Volume 75.6 L Mean Corpuscular Hemoglobin 22.4 L Mean Corpuscular Hemoglobin Concent 29.7 L Red Cell Distribution Width 20.9 H Platelet Count 164 Mean Platelet Volume 9.8 Neutrophils % 70.2 Lymphocytes % 16.8 Monocytes % 8.7 Eosinophils % 3.8 Basophils % 0.3 Nucleated Red Blood Cells % 0.0 Neutrophils # 4.4 Lymphocytes # 1.1 Monocytes # 0.6 Eosinophils # 0.2 Basophils # 0.0 Nucleated Red Blood Cells # 0.0 Sodium Level 140 Potassium Level 4.7 Chloride Level 106 Carbon Dioxide Level 28 Anion Gap 11 Blood Urea Nitrogen 32 H Creatinine 1.71 H Glucose Level 100 Calcium Level 9.3 Test 01/14/17 12:24 Bedside Glucose 106 Medications Medications Current Medications Morphine Sulfate (morphine) 4 mg Q4H PRN IV PAIN LEVEL 6-10 Last administered on 01/13/17t 14:02; Admin Dose 4 MG; Start 12/23/16 at 05:00 Miscellaneous Information 1 ea NOTE XX ; Start 12/23/16 at 08:00 Glucose (Glutose) 15 gm Q15M PRN PO DECREASED GLUCOSE; Start 12/23/16 at 08:00 Glucose (Glutose) 22.5 gm Q15M PRN PO DECREASED GLUCOSE; Start 12/23/16 at 08: 00 Dextrose (D50w Syringe) 25 ml Q15M PRN IV DECREASED GLUCOSE; Start 12/23/16 at 08:00 Dextrose (D50w Syringe) 50 ml Q15M PRN IV DECREASED GLUCOSE; Start 12/23/16 at 08:00 Glucagon (Glucagen) 1 mg Q15M PRN IM DECREASED GLUCOSE; Start 12/23/16 at 08: 00 Glucose (Glutose) 15 gm Q15M PRN BUCCAL DECREASED GLUCOSE; Start 12/23/16 at 08:00 Acetaminophen (Tylenol Tab) 650 mg Q6H PRN PO PAIN AND OR ELEVATED TEMP Last administered on 12/24/16 17:40; Admin Dose 650 MG; Start 12/23/16 at 14:30 Acetaminophen/ Hydrocodone Bitart ([place] (5/325)) 1 tab Q6H PRN PO PAIN LEVEL 6 -10 Last administered on 01/14/17 11:46; Admin Dose 1 TAB; Start 12/24/16 at 23:00 Pantoprazole (Protonix Tab) 40 mg DAILY@06 PO Last administered on 01/14/17 05:50; Admin Dose 40 MG; Start 12/26/16 at 06:00 Diagnostic Test (Pha) (Accu-Chek) 1 ea 02 XX Last administered on 01/13/17 02 :09; Admin Dose 1 EA; Start 12/26/16 at 02:00 Digoxin (Digoxin) 0.125 mg DAILY PO Last administered on 01/12/17 08:11; Admin Dose 0.125 MG; Start 12/26/16 at 09:00 Mirtazapine (Remeron) 15 mg HS PO Last administered on 01/13/17 21:46; Admin Dose 15 MG; Start 12/26/16 at 21:00 Venlafaxine HCl (Effexor Xr) 150 mg BID PO Last administered on 01/14/17 09: 37; Admin Dose 150 MG; Start 12/26/16 at 09:00 Rifampin (Rifampin) 600 mg DAILY PO Last administered on 01/14/17 09:38; Admin Dose 600 MG; Start 12/27/16 at 14:00 Atorvastatin Calcium (Lipitor) 40 mg HS PO Last administered on 01/13/17 21: 46; Admin Dose 40 MG; Start 12/28/16 at 21:00 Metoprolol Succinate (Toprol Xl) 12.5 mg BID PO Last administered on 09:39; Admin Dose 12.5 MG; Start 12/28/16 at 21:30 Magnesium Hydroxide (Milk Of Mag) 30 ml HS PO Last administered on 01/13/17 21:42; Admin Dose 30 ML; Start 12/29/16 at 21:00 Polyethylene Glycol (Miralax) 17 gm BID PO Last administered on 01/14/17 09: 38; Admin Dose 17 GM; Start 01/02/17 at 21:00 Lactobacillus Acidophilus (Florajen3 Capsule) 1 each BID PO Last administered on 01/14/17 09:38; Admin Dose 1 EACH; Start 01/08/17 at 21:00 Hydralazine HCl (Apresoline) 10 mg Q8 PO Last administered on 01/14/17 05:50 ; Admin Dose 10 MG; Start 01/08/17 at 14:00 Hydrogen Peroxide (Hydrogen Peroxide) 1 applic Q12 TOP Last administered on 09:43; Admin Dose 1 APPLIC; Start 01/08/17 at 21:00 Silver Sulfadiazine (Thermazene 1% 25 Gm) 1 applic Q12 TOP Last administered on 01/14/17 09:42; Admin Dose 1 APPLIC; Start 01/08/17 at 21:00 Clopidogrel Bisulfate (plaVIX) 75 mg DAILY PO Last administered on 01/14/17 09:38; Admin Dose 75 MG; Start 01/11/17 at 09:00 Clindamycin HCl (Cleocin) 450 mg Q8 PO Last administered on 01/14/17 05:50; Admin Dose 450 MG; Start 01/13/17 at 22:00; Stop 01/27/17 at 21:59 JACLYN RODRIGUEZ 19, 2017 14:14
--- NOTE | 2017-01-14 17:04 | CONS ---
Date/Time of Note Date/Time of Note DATE: 01/14/17 TIME: 17:03 Assessment/Plan Assessment/Plan Chief Complaint/Hosp Course pt admitted with forehead cellulitis with self draining abscess, seen by ID, started on IV abx, noted to have Rising Cr and renal has been consulted for MELINDA on CKD Problems: Additional Assessment/Plan 1. MELINDA on CKD Due to prerenal azotemia + ATN 2. MRSA forehead cellulitis with Abscess s/p Right scalp wound debridement bY G surg on 01/05/17-- still draining-pus/blood per staff- MRSA wound.ID follows 3. H/o CKD III Due to HTN 4. HTN 5. Bipolar 6. DM II Plan : IV abx vancomycin , renally dose it - Cr 1.71- same as on admission -BP stable Lisinopril stopped due to bump in Cr - BP controlled, will resume it at the time of discharge Renal US c/w medical renal disease, no hydronephrosis s/p Right scalp wound debridement on 01/05/17- wound cx grew MRSA- wound care, IV a bx as per ID will follow up Consultation Date/Type/Reason Admit Date/Time Dec 23, 2016 at 02:25 Initial Consult Date 12/28/16 Type of Consultation: NEPHROLOGY Referring Provider: JOS FOSTER MD Exam/Review of Systems Vital Signs Vitals Vital Signs Date Time Temp Pulse Resp B/P Pulse Ox O2 Delivery O2 Flow Rate FiO2 01/14/17 15:12 68 20 97 21 01/14/17 08:26 97.9 114/59 01/12/17 14:30 Room Air Intake and Output 01/13/17 01/13/17 01/14/17 15:00 23:00 07:00 Intake Total 1430 ml 250 ml Output Total 750 ml 450 ml Balance 680 ml -200 ml Exam GENERAL: Well-developed, elderly man in no distress. HEENT: Head atraumatic, normocephalic. Sclerae anicteric. Buccal mucosa dry. NECK: Supple. CHEST: Rise symmetrical. Breath sounds diminished to bases. HEART: S1, S2. ABDOMEN: Soft, bowel tones present. EXTREMITIES: Without cyanosis. SKIN: Dry, pale, forehead dsg intact. Results Result Diagram: 01/14/17 0542 01/14/17 0542 Results 24 hrs Laboratory Tests Test 01/13/17 17:21 01/13/17 21:38 01/14/17 05:42 01/14/17 08:31 Bedside Glucose 110 105 114 White Blood Count 6.3 Red Blood Count 3.97 L Hemoglobin 8.9 L Hematocrit 30.0 L Mean Corpuscular Volume 75.6 L Mean Corpuscular Hemoglobin 22.4 L Mean Corpuscular Hemoglobin Concent 29.7 L Red Cell Distribution Width 20.9 H Platelet Count 164 Mean Platelet Volume 9.8 Neutrophils % 70.2 Lymphocytes % 16.8 Monocytes % 8.7 Eosinophils % 3.8 Basophils % 0.3 Nucleated Red Blood Cells % 0.0 Neutrophils # 4.4 Lymphocytes # 1.1 Monocytes # 0.6 Eosinophils # 0.2 Basophils # 0.0 Nucleated Red Blood Cells # 0.0 Sodium Level 140 Potassium Level 4.7 Chloride Level 106 Carbon Dioxide Level 28 Anion Gap 11 Blood Urea Nitrogen 32 H Creatinine 1.71 H Glucose Level 100 Calcium Level 9.3 Test 01/14/17 12:24 Bedside Glucose 106 Medications Medications Current Medications Morphine Sulfate (morphine) 4 mg Q4H PRN IV PAIN LEVEL 6-10 Last administered on 01/13/17 14:02; Admin Dose 4 MG; Start 12/23/16 at 05:00 Miscellaneous Information 1 ea NOTE XX ; Start 12/23/16 at 08:00 Glucose (Glutose) 15 gm Q15M PRN PO DECREASED GLUCOSE; Start 12/23/16 at 08:00 Glucose (Glutose) 22.5 gm Q15M PRN PO DECREASED GLUCOSE; Start 12/23/16 at 08: 00 Dextrose (D50w Syringe) 25 ml Q15M PRN IV DECREASED GLUCOSE; Start 12/23/16 at 08:00 Dextrose (D50w Syringe) 50 ml Q15M PRN IV DECREASED GLUCOSE; Start 12/23/16 at 08:00 Glucagon (Glucagen) 1 mg Q15M PRN IM DECREASED GLUCOSE; Start 12/23/16 at 08: 00 Glucose (Glutose) 15 gm Q15M PRN BUCCAL DECREASED GLUCOSE; Start 12/23/16 at 08:00 Acetaminophen (Tylenol Tab) 650 mg Q6H PRN PO PAIN AND OR ELEVATED TEMP Last administered on 12/24/16 17:40; Admin Dose 650 MG; Start 12/23/16 at 14:30 Acetaminophen/ Hydrocodone Bitart ([place] (5/325)) 1 tab Q6H PRN PO PAIN LEVEL 6 -10 Last administered on 01/14/17 11:46; Admin Dose 1 TAB; Start 12/24/16 at 23:00 Pantoprazole (Protonix Tab) 40 mg DAILY@06 PO Last administered on 01/14/17 05:50; Admin Dose 40 MG; Start 12/26/16 at 06:00 Diagnostic Test (Pha) (Accu-Chek) 1 ea 02 XX Last administered on 01/13/17 02 :09; Admin Dose 1 EA; Start 12/26/16 at 02:00 Digoxin (Digoxin) 0.125 mg DAILY PO Last administered on 01/12/17 08:11; Admin Dose 0.125 MG; Start 12/26/16 at 09:00 Mirtazapine (Remeron) 15 mg HS PO Last administered on 01/13/17 21:46; Admin Dose 15 MG; Start 12/26/16 at 21:00 Venlafaxine HCl (Effexor Xr) 150 mg BID PO Last administered on 01/14/17 09: 37; Admin Dose 150 MG; Start 12/26/16 at 09:00 Rifampin (Rifampin) 600 mg DAILY PO Last administered on 01/14/17 09:38; Admin Dose 600 MG; Start 12/27/16 at 14:00 Atorvastatin Calcium (Lipitor) 40 mg HS PO Last administered on 01/13/17 21: 46; Admin Dose 40 MG; Start 12/28/16 at 21:00 Metoprolol Succinate (Toprol Xl) 12.5 mg BID PO Last administered on 09:39; Admin Dose 12.5 MG; Start 12/28/16 at 21:30 Magnesium Hydroxide (Milk Of Mag) 30 ml HS PO Last administered on 01/13/17 21:42; Admin Dose 30 ML; Start 12/29/16 at 21:00 Polyethylene Glycol (Miralax) 17 gm BID PO Last administered on 01/14/17 09: 38; Admin Dose 17 GM; Start 01/02/17 at 21:00 Lactobacillus Acidophilus (Florajen3 Capsule) 1 each BID PO Last administered on 01/14/17 09:38; Admin Dose 1 EACH; Start 01/08/17 at 21:00 Hydralazine HCl (Apresoline) 10 mg Q8 PO Last administered on 01/14/17 14:58 ; Admin Dose 10 MG; Start 01/08/17 at 14:00 Hydrogen Peroxide (Hydrogen Peroxide) 1 applic Q12 TOP Last administered on 09:43; Admin Dose 1 APPLIC; Start 01/08/17 at 21:00 Silver Sulfadiazine (Thermazene 1% 25 Gm) 1 applic Q12 TOP Last administered on 01/14/17 09:42; Admin Dose 1 APPLIC; Start 01/08/17 at 21:00 Clopidogrel Bisulfate (plaVIX) 75 mg DAILY PO Last administered on 01/14/17 09:38; Admin Dose 75 MG; Start 01/11/17 at 09:00 Clindamycin HCl (Cleocin) 450 mg Q8 PO Last administered on 01/14/17 14:58; Admin Dose 450 MG; Start 01/13/17 at 22:00; Stop 01/27/17 at 21:59 MIHAI JOSEPH MD Jan 14, 2017 17:04
== END 2017-01-14 16:30 | DRG 579 ==
LOC: E/R 22:10 → MS2 12-23 02:25 → MS4 12-23 03:33 → PP2 01-12 14:19
PROVIDERS: ADMIT Internal Medicine; ATTEND Internal Medicine
PROC: 30233N0 Transfusion of Autologous Red Blood Cells into Peripheral Vein, Percutaneous Approach (ICD-10-PCS; 2016-12-25)
PROC: 0KB10ZZ Excision of Facial Muscle, Open Approach (ICD-10-PCS; principal; 2017-01-05 10:00)
DX: L02.818 Cutaneous abscess of other sites (principal); N17.0 Acute kidney failure with tubular necrosis; L03.818 Cellulitis of other sites; E11.22 Type 2 diabetes mellitus with diabetic chronic kidney disease; I13.10 Hypertensive heart and chronic kidney disease without heart failure, with stage 1 through stage 4 chronic kidney disease, or unspecified chronic kidney disease; E11.8 Type 2 diabetes mellitus with unspecified complications; N18.3 Chronic kidney disease, stage 3 (moderate); Z72.0 Tobacco use; B95.62 Methicillin resistant Staphylococcus aureus infection as the cause of diseases classified elsewhere; R29.810 Facial weakness; E86.0 Dehydration; J44.9 Chronic obstructive pulmonary disease, unspecified; Z79.4 Long term (current) use of insulin; I25.5 Ischemic cardiomyopathy; Z95.5 Presence of coronary angioplasty implant and graft; F31.9 Bipolar disorder, unspecified; R00.1 Bradycardia, unspecified; Z86.73 Personal history of transient ischemic attack (TIA), and cerebral infarction without residual deficits
CPT/HCPCS: 36415; 36430; 70450; 71010; 76775; 78452; 80048; 80053; 80061; 80162; 80202; 81003; 82550; 82565; 82570; 82962; 83036; 83690; 83735; 84132; 84300; 84439; 84443; 84484; 84520; 84560; 85025; 85610; 85730; 86850; 86900; 86901; 86920; 87040; 87070; 88304; 89190; 90686; 93005; 93017; 93306; 94640; 94664; 96374; 97110; 97116; 97161; 97530; A9500; A9505; J0690; J0696; J1100; J1815; J2270; J2405; J2785; J3010; J3370; J3475; J7030; J7040; J7050; P9016

== ENCOUNTER 2017-04-08 15:31 | Inpatient (IN) | END 2017-04-18 20:30 | disposition home or self-care (01) | DRG 227 ==

== ENCOUNTER 2018-01-29 09:57 | Inpatient (IN) | END 2018-02-15 12:29 | disposition home or self-care (01) | DRG 802 ==

== ENCOUNTER 2018-09-16 11:29 | Inpatient (IN) | payer MEDICARE, OTHER ==
[~2018-09-16] VITALS: Ht 170.2 cm; Wt 88.0 kg
[~2018-09-16 11:29] MED LIST changes: +ACET-141 PO; +ALBU8.5H8 INH; +ALLO100T PO; +ARIP5TAB14 PO; +ARIP5TAB20 ORAL; +ASPI-1044 PO; +ATOR-2 PO; -ATOR80TA75 PO; +CARV3.1260 PO; -CARV6.2579 PO; -CLOP75TA27 PO; +CYAN-23 PO; +CYAN500T46 PO; +DIGO125T93 PO; +FER325 PO; +FURO-110 PO; +FURO20TA3 PO; +LAMO100T ORAL; +LAMO100T PO; -LAMO150T15 PO; +LAMO150T3 PO; +LEVO150T64 PO; -LEVO150T67 PO; +LEVO150T7 PO; +LEVO175T6 PO; +LISI2.5T59 ORAL; +LISI2.5T59 PO; +MECL-77 PO; -MECL25TA2 PO; +METR500T PO; -MIRT15TA PO; -NITR0.4T32 SL; +PANT40TA3 PO; -VENL150C PO
--- NOTE | 2018-09-16 11:45 | ERD ---
ER Documentation Chief Complaint Chief Complaint dizziness HPI The patient is a 78-year-old male, presenting to the ER because of lig htheadedness, had similar symptoms previously, denies syncope, near syncope, headache, facial pain, neck pain, chest pain, dyspnea, abdominal pain, vomiting, dysuria, diarrhea, hematuria, hematochezia. He smokes a pack a day, denies drinking Past medical history: Diabetes mellitus, hypertension, hypothyroidism, dyslipidemia, COPD, sleep apnea, anemia, ischemic gammopathy with low EF of 30% in 2017 echo, chronic kidney disease, bipolar, history of TIA, history of CHF, gastritis, hiatal hernia Past surgical history: Stent PCI, ICD, he had a colonoscopy and EGD recently ROS All systems reviewed and are negative except as per history of present illness. Medications Home Meds Active Scripts Allopurinol* (Allopurinol*) 100 Mg Tablet, 100 MG PO DAILY for 30 Days, #30 TAB Prov:JOS GIRON MD 02/13/18 Cyanocobalamin* (Vitamin B12*) 500 Mcg Tab, 1000 MCG PO DAILY for 30 Days, #30 TAB Prov:JOS GIRON MD 02/13/18 Aspirin Delayed Release (Aspirin Delayed Release) 81 Mg Tablet.dr, 81 MG PO DAILY for 30 Days, #30 Prov:JOS GIRON MD 02/13/18 Reported Medications Aripiprazole (Aripiprazole) 5 Mg Tablet, 0.5 TAB ORAL DAILY 09/16/18 Lisinopril* (Lisinopril*) 2.5 Mg Tablet, 1 TAB ORAL DAILY 09/16/18 Acetaminophen* (Acetaminophen*) 500 MG Extra Strength Tablet, 500 MG PO DAILY, TAB 09/16/18 Lamotrigine* (Lamotrigine*) 100 Mg Tablet, 1 TAB ORAL BID 09/16/18 Digoxin* (Lanoxin*) 0.125 Mg Tablet, 0.125 MG PO DAILY, TAB 01/28/18 Glimepiride* (Glimepiride*) 2 Mg Tablet, 2 MG PO WITH BREAKFAST, TAB 01/28/18 Furosemide* (Lasix*) 20 Mg Tablet, 20 MG PO DAILY, TAB 01/28/18 Carvedilol* (Carvedilol*) 3.125 Mg Tablet, 3.125 MG PO BID, #60 TAB 01/28/18 Pantoprazole* (Protonix*) 40 Mg Tablet.dr, 40 MG PO DAILY, TAB 01/28/18 Levothyroxine Sodium* (Levoxyl*) 150 Mcg Tablet, 150 MCG PO BEFORE BREAKFAST, #30 TAB 01/28/18 Atorvastatin* (Atorvastatin*) 80 Mg Tablet, 80 MG PO QHS, #30 TAB 01/28/18 Discontinued Reported Medications Albuterol Sulfate* (Proair HFA*) 8.5 Gm Hfa.aer.ad, 2 PUFF INH Q4H PRN for WHEEZING AND SOB, #1 INHALER 01/28/18 Meclizine Hcl* (Meclizine Hcl*) 25 Mg Tablet, 25 MG PO Q8H PRN for DIZZINESS, TAB 01/28/18 Lisinopril* (Lisinopril*) 5 Mg Tablet, 5 MG PO DAILY, #30 TAB 01/28/18 Lamotrigine* (Lamictal*) 150 Mg Tablet, 75 MG PO BID, TAB 01/28/18 Discontinued Scripts Levothyroxine Sodium* (Levothyroxine Sodium*) 175 Mcg Tablet, 175 MCG PO BEFORE BREAKFAST for 30 Days, #30 TAB Prov:JOS GIRON MD 02/13/18 Ferrous Sulfate* (Ferrous Sulfate*) 325 Mg Tabec, 325 MG PO DAILY for 30 Days, #30 TAB Prov:JOS GIRON MD 02/13/18 Metronidazole* (Flagyl*) 500 Mg Tablet, 500 MG PO Q8 for 7 Days, #20 TAB Prov:JOS GIRON MD 02/13/18 Allergies Allergies: Coded Allergies: iodine (Verified Allergy, Mild, 09/16/18) procainamide (Verified Allergy, Mild, 09/16/18) PMhx/Soc History of Surgery: Yes (knee sx bilateral, heart valve replacement, pacemaker, head sx, stents,) Anesthesia Reaction: No Hx Neurological Disorder: No Hx Respiratory Disorders: Yes (COPD, sleep apnea) Hx Cardiac Disorders: Yes (low blood pressure) Hx Miscellaneous Medical Probl: Yes (See note) Hx Alcohol Use: Yes Hx Substance Use: No Hx Tobacco Use: Yes Physical Exam Vitals Vital Signs Date Temp Pulse Resp B/P (MAP) Pulse Ox O2 O2 Flow FiO2 Time Delivery Rate 09/16/18 58 18 116/63 100 Room Air 13:31 (80) 09/16/18 60 17 98/55 (69) 100 Room Air 12:27 09/16/18 60 17 84/64 (71) 100 Room Air 12:06 09/16/18 98.0 61 18 89/53 (65) 98 11:38 Physical Exam Const: No acute distress. Head: Atraumatic. Eyes: Normal Conjunctiva. ENT: Normal External Ears, Nose and Mouth. Neck: Full range of motion. No meningismus. Resp: Clear to auscultation bilaterally. Cardio: Regular rate and rhythm. Abd: Soft, non distended, normal bowel sounds, non tender. Skin: No petechiae or rashes. Back: No midline or flank tenderness. Ext: No cyanosis, or edema. Neur: Awake and alert. No focal deficit Psych: Normal Mood and Affect. Result Diagram: 09/16/18 1217 09/16/18 1217 Results 24 hrs Laboratory Tests Test 09/16/18 12:17 White Blood Count 10.0 10^3/ul Red Blood Count 4.24 10^6/ul Hemoglobin 12.4 g/dl Hematocrit 39.4 % Mean Corpuscular Volume 92.9 fl Mean Corpuscular Hemoglobin 29.2 pg Mean Corpuscular Hemoglobin Concent 31.5 g/dl Red Cell Distribution Width 14.1 % Platelet Count 241 10^3/UL Mean Platelet Volume 10.1 fl Immature Granulocytes % 0.400 % Neutrophils % 74.0 % Lymphocytes % 15.6 % Monocytes % 6.9 % Eosinophils % 2.7 % Basophils % 0.4 % Nucleated Red Blood Cells % 0.0 /100WBC Immature Granulocytes # 0.040 10^3/ul Neutrophils # 7.4 10^3/ul Lymphocytes # 1.6 10^3/ul Monocytes # 0.7 10^3/ul Eosinophils # 0.3 10^3/ul Basophils # 0.0 10^3/ul Nucleated Red Blood Cells # 0.0 10^3/ul Prothrombin Time 13.0 Sec Prothrombin Time Ratio 1.0 INR International Normalized Ratio 0.97 Activated Partial Thromboplast Time 33.2 Sec Sodium Level 140 mmol/L Potassium Level 4.3 mmol/L Chloride Level 107 mmol/L Carbon Dioxide Level 24 mmol/L Anion Gap 9 Blood Urea Nitrogen 35 mg/dl Creatinine 2.05 mg/dl Est Glomerular Filtrat Rate mL/min mL/min Glucose Level 140 mg/dl Calcium Level 9.5 mg/dl Magnesium Level 2.3 mg/dl Total Bilirubin 0.6 mg/dl Direct Bilirubin 0.00 mg/dl Indirect Bilirubin 0.6 mg/dl Aspartate Amino Transf (AST/SGOT) 17 IU/L Alanine Aminotransferase (ALT/SGPT) 11 IU/L Alkaline Phosphatase 63 IU/L Troponin I 0.059 ng/ml Total Protein 7.3 g/dl Albumin 4.0 g/dl Globulin 3.30 g/dl Albumin/Globulin Ratio 1.21 Digoxin Level 1.5 ng/ml Current Medications Medications Dose Sig/Randy Start Time Status Last (Trade) Ordered Route PRN Stop Time Admin Dose Reason Admin Sodium 250 ml @ Q1H ONCE 09/16/18 DC 09/16/18 Chloride 250 mls/hr IV 12:00 12:08 09/16/18 12:59 Sodium 250 ml @ Q1H ONCE 09/16/18 DC 09/16/18 Chloride 250 mls/hr IV 13:00 12:45 09/16/18 13:59 Procedures/[place] [id number] Radiology Main Line: [phone] DIAGNOSTIC IMAGING REPORT Patient: SHANA HARVEY : 1940 Age: 78 Sex: M MR #: [id number] DOS: 09/16/18 1335 Ordering MD: ISRAEL MAYS MD Location: E/R Room/Bed: PROCEDURE: CT BRAIN WITHOUT CONTRAST CLINICAL INDICATION: Lightheadedness. TECHNIQUE: Transaxial CT examination of the head was performed without intravenous administration of contrast on a [facility] CT scanner. In addition to the brain and bone windows of transaxial images, multiple sagittal and coronal reformatted images were generated for the interpretation. DICOM images are available. Radiation dose: CTDIvol = 139 mGy; total DLP = 634 mGy-cm. One or more of the following dose reduction techniques were used: - Automated exposure control. - Adjustment of the mA and/or kV according to patient size. - Use of iterative reconstruction technique. COMPARISON: CT examination of 12/29/2016. FINDINGS: Evaluation of the supratentorial compartment demonstrates no appreciable recent cerebral infarction, hemorrhage, mass effect, midline shift, or abnormal extra- axial fluid collection. 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 Moderate enlargement of the ventricles and cortical sulci in a pattern of atrophy there is normal for the age. Mild joby ventricular and subcortical white matter hypoattenuation density is present, which is most likely due to age related microvascular change. Evaluation of the posterior fossa reveals no hemorrhage, infarction, or mass effect. Mild to moderate atrophic change is compatible with the age of patient. The cerebellar tonsils are in normal position relative to the foramen magnum. An interval resolution of the extracranial soft tissue swelling over the right forehead is appreciated. The skull is intact without abnormal bone density or destructive lesion. Bilateral mastoid air cells and the visualized paranasal sinuses are normally aerated. IMPRESSION: 1. No appreciable recent cerebral infarction, hemorrhage, or hydrocephalus. 2. 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 3. Mild age related microvascular change. RPTAT: EE Physician Zoraida Date Time Electronically viewed and signed by Physician Zoraida on 09/16/2018 14:55 PH/ CC: ISRAEL MAYS MD [id number] MEDICAL MAKING DECISION: The patient is a 78-year-old male, presenting with acute dizziness most likely due to acute hypotension. He was treated with normal saline 250 mL IV x2 with good blood pressure response, however he still remained dizzy The differential diagnoses considered include but are not limited to central causes such as cerebellar infarct, cerebellar hemorrhage, cerebellar tumor, acoustic neuroma, peripheral causes such as benign positional vertigo, labyrinthitis, medication, Meniere's disease. Departure Diagnosis: Primary Impression: Dizziness Additional Impressions: Hypotension Anemia Condition: Stable Comments I discussed the findings with the patient. I notified the patient with Dr. Giron via [employer] , who was made aware of the lab, the treatment, the patient condition. The patient is admitted to telemetry at 2:40 PM Disclaimer: Inadvertent spelling and grammatical errors are likely due to E HR/dictation software use and do not reflect on the overall quality of patient care. Also, please note that the electronic time recorded on this note does not necessarily reflect the actual time of the patient encounter. ISRAEL MAYS MD Sep 16, 2018 11:45
[2018-09-16] MEDS ORDERED: SOD CHLORIDE 0.9% 250 ML IV ONE ×2 (12:00→13:00)
[2018-09-16 17:53] VITALS: BP 122/57; PULSE 57; RESP 18; Ht 170.2 cm; Wt 88.0 kg
--- NOTE | 2018-09-16 18:32 | HP ---
Date/Time of Note Date/Time of Note DATE: 09/16/18 TIME: 18:30 Assessment/Plan VTE Prophylaxis SCD applied (from Nsg): Yes Pharmacological prophylaxis: NA/contraindicated Pharm contraindication: anticoag not tolerated Lines/Catheters IV Catheter Type (from Nrsg): Peripheral IV Urinary Cath still in place: No Assessment/Plan Assessment/Plan Assessment/Plan -Dizziness, hypotension. Telemetry monitoring. Continue digoxin and Coreg, will hold on other blood pressure home medicine for now. cardiac enzymes, 2D echo, TSH. -Ischemic cardiomyopathy with ejection fraction of 30%. Dr. Choudhury is asked to see patient in in cardiology consultation. -Acute kidney injury on chronic kidney disease stage III, continue to monitor BUN and creatinine. Dr. Novak is asked to see patient in nephrology consultation -Hx of AICD placement for symptomatic bradycardia -Coronary artery disease with history of stent placement. Continue aspirin. -Status post transcatheter aortic valve replacement in 2016. -Chronic obstructive pulmonary disease. 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 Plan of care discussed with Dr. Giron. Result Diagram: 09/16/18 1217 09/16/18 1217 Results 24hrs Laboratory Tests Test 09/16/18 12:17 White Blood Count 10.0 # Red Blood Count 4.24 L Hemoglobin 12.4 L Hematocrit 39.4 L Mean Corpuscular Volume 92.9 Mean Corpuscular Hemoglobin 29.2 Mean Corpuscular Hemoglobin Concent 31.5 L Red Cell Distribution Width 14.1 # Platelet Count 241 Mean Platelet Volume 10.1 Immature Granulocytes % 0.400 Neutrophils % 74.0 Lymphocytes % 15.6 Monocytes % 6.9 Eosinophils % 2.7 Basophils % 0.4 Nucleated Red Blood Cells % 0.0 Immature Granulocytes # 0.040 H Neutrophils # 7.4 Lymphocytes # 1.6 Monocytes # 0.7 Eosinophils # 0.3 Basophils # 0.0 Nucleated Red Blood Cells # 0.0 Prothrombin Time 13.0 Prothrombin Time Ratio 1.0 INR International Normalized Ratio 0.97 Activated Partial Thromboplast Time 33.2 Sodium Level 140 Potassium Level 4.3 Chloride Level 107 Carbon Dioxide Level 24 Anion Gap 9 Blood Urea Nitrogen 35 H Creatinine 2.05 H Est Glomerular Filtrat Rate mL/min Glucose Level 140 Calcium Level 9.5 Magnesium Level 2.3 Total Bilirubin 0.6 Direct Bilirubin 0.00 Indirect Bilirubin 0.6 Aspartate Amino Transf (AST/SGOT) 17 Alanine Aminotransferase (ALT/SGPT) 11 L Alkaline Phosphatase 63 Troponin I 0.059 Total Protein 7.3 Albumin 4.0 Globulin 3.30 H Albumin/Globulin Ratio 1.21 Digoxin Level 1.5 HPI/ROS Admit Date/Time Admit Date/Time Sep 16, 2018 at 14:48 Hx of Present Illness The patient is 78-year-old male known to me from previous admission patient has an extensive medical history including coronary artery disease with history of PTCA and stent placement, ischemic cardiomyopathy status post ICD placement for symptomatic bradycardia, history of aortic stenosis status post TAVR, chronic kidney disease, hypertension, hyperlipidemia, diabetes, anemia, gastritis, and bipolar disorder. Patient presented to the emergency room with complaints of dizziness and generalized weakness, patient denies any syncopal episode denies chest pain denies dyspnea denies abdominal pain denies nausea or vomiting diarrhea. Patient was also noted to be hypotensive. Chest x-ray is unremarkable. CT of the brain revealed no appreciable recent cerebral infarction, hemorrhage, or hydrocephalus. Approximately 64 mm old cerebral infarction of the right occipital lobe.Mild age related microvascular change. Patient is admitted to telemetry floor for further evaluation and management. ROS 12 point review of system is negative except for what mentioned in HPI PMH/Family/Social Past Medical History Medical History: other (Ischemic cardiomyopathy, coronary artery disease, peripheral artery disease, lumbar spinal stenosis, osteoarthritis, COPD, tobacco dependence, bipolar disorder) Coded Allergies: iodine (Verified Allergy, Mild, 09/16/18) procainamide (Verified Allergy, Mild, 09/16/18) Past Surgical History Past Surgical Hx: angioplasty, cholecystectomy, other (s/p ICD placement March 2017, s/p PTCA) Family History Significant Family History: other (Father at age of 48 due to coronary artery disease. Mother at age 70 due to old age) Social History Alcohol Use: none Smoking Status: Current every day smoker Drug Use: none Exam/Review of Systems Vital Signs Vitals Vital Signs Date Temp Pulse Resp B/P (MAP) Pulse Ox O2 O2 Flow FiO2 Time Delivery Rate 09/16/18 98.1 57 18 122/57 99 Room Air 17:53 (78) Exam Constitutional: alert, oriented Head: normocephalic Neck: supple Respiratory: clear to auscultation Cardiovascular: regular rate and rhythm, other (Left chest AICD) Gastrointestinal: soft, non-tender Musculoskeletal: nl extremities to inspection Extremities: normal pulses Neurological: nl mental status Skin: nl SELMA Patrick Sep 16, 2018 18:32
[2018-09-16] MEDS ORDERED: GLUCOSE GEL 15 GRAM TUBE BUCCAL PRN (19:30)
[2018-09-16] MEDS ORDERED: GLUCOSE GEL 15 GRAM TUBE PO PRN ×2 (19:30)
[2018-09-16] MEDS ORDERED: DEXTROSE 50% 50 ML SYRINGE IV PRN ×2 (19:30)
[2018-09-16] MEDS ORDERED: GLUCAGON 1 MG INJ IM PRN (19:30)
[2018-09-16 19:50] VITALS: BP 109/53; PULSE 68; RESP 18
[2018-09-16 20:00] VITALS: PULSE 56
[2018-09-16] MEDS: LEVALBUTEROL (NEB) 0.63 MG/3 ML AMP HHN SCH ×2 (20:28→20:29)
[2018-09-16] MEDS: ATORVASTATIN 80 MG TAB PO SCH (21:05)
--- NOTE | 2018-09-16 21:45 | CONS ---
Assessment/Plan Assessment/Plan Assessment/Plan (Daily) 1. acute kidney injury on CKD III due to prerenal azotemia + hemodynamics 2. -Hx of Chronic right CAR DELIVERER territory infarct 3. H/o Myelodysplastic syndrome 4.H/o CAD with previous stent placement 5. H/o Ischemic Cardiomyopathy s/p AICD placement 6. H/o COPD 7. H/o DM II 8. H/o Hypothyroidism 9. 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 S/p Aortic valve replacement in 2015 Plan : s/p IVF in ED< continue Lasix 20mg pO daily - depending on labs in AM, we will decide for furhter IVF hydration I will order urine studies including urine Na, urine Prot/cr ratio, urine eosinophils, CK total, uric acid will repeat Renal Us to asses for CKD, to rule out hydronephrosis Avoid nephrotoxic medications, renally dose all abx will follow up , Thanks for consultation Consultation Date/Type/Reason Admit Date/Time Sep 16, 2018 at 14:48 Date of Consultation: Sep 16, 2018 Type of Consult NEPHROLOGY Reason for Consultation Acute on chronic renal failure Requesting Provider: JOS FOSTER MD Date/Time of Note DATE: 09/16/18 TIME: 21:45 Hx of Present Illness 78 yo male with multiple medical problems including coronary artery disease, history of DVT, status post IVC filter placement and history of GI bleed. 04/2015 I began to treat the patient after he presented to [facility] with symptomatic anemia. The patient had a full anemia workup done at that time, which was virtually negative and there was no evidence of iron deficiency, vitamin B12, folate deficiency, or hemolysis. The patient thus underwent a bone marrow biopsy whose flow cytometry was negative, but the cytogenetics were complex consistent with a poor risk myelodysplastic syndrome. Pt did not respond to he Epogen initially so subsequently he received 5 cycles of Vidaza and his Hg responded well in 06/2015.- His Hb was normal in 2016 then he did not follow up with interventional radiologist regulary . 01/2018 pt presents to [facility] with sumptomatoc anemia and a Hg 6.2. He has since received 2 units of PRBCs. He was found to be severely iron deficient and has been started on IV iron. He is due to get a colonoscopy during this admission. He is also scheduled for a bone marrow bx. BUN/Cr on admission 21/03.65- other electrolytes normal, renal has been consulted for acute Renal failure. Past Medical History Medical History: high cholesterol, renal disease Home Meds Active Scripts Allopurinol* (Allopurinol*) 100 Mg Tablet, 100 MG PO DAILY for 30 Days, #30 TAB Prov:JOS FOSTER MD 02/13/18 Cyanocobalamin* (Vitamin B12*) 500 Mcg Tab, 1000 MCG PO DAILY for 30 Days, #30 TAB Prov:JOS FOSTER MD 02/13/18 Aspirin Delayed Release (Aspirin Delayed Release) 81 Mg Tablet.dr, 81 MG PO DAILY for 30 Days, #30 Prov:JOS FOSTER MD 02/13/18 Reported Medications Aripiprazole (Aripiprazole) 5 Mg Tablet, 0.5 TAB ORAL DAILY 09/16/18 Lisinopril* (Lisinopril*) 2.5 Mg Tablet, 1 TAB ORAL DAILY 09/16/18 Acetaminophen* (Acetaminophen*) 500 MG Extra Strength Tablet, 500 MG PO DAILY, TAB 09/16/18 Lamotrigine* (Lamotrigine*) 100 Mg Tablet, 1 TAB ORAL BID 09/16/18 Digoxin* (Lanoxin*) 0.125 Mg Tablet, 0.125 MG PO DAILY, TAB 01/28/18 Glimepiride* (Glimepiride*) 2 Mg Tablet, 2 MG PO WITH BREAKFAST, TAB 01/28/18 Furosemide* (Lasix*) 20 Mg Tablet, 20 MG PO DAILY, TAB 01/28/18 Carvedilol* (Carvedilol*) 3.125 Mg Tablet, 3.125 MG PO BID, #60 TAB 01/28/18 Pantoprazole* (Protonix*) 40 Mg Tablet.dr, 40 MG PO DAILY, TAB 01/28/18 Levothyroxine Sodium* (Levoxyl*) 150 Mcg Tablet, 150 MCG PO BEFORE BREAKFAST, #30 TAB 01/28/18 Atorvastatin* (Atorvastatin*) 80 Mg Tablet, 80 MG PO QHS, #30 TAB 01/28/18 Discontinued Reported Medications Albuterol Sulfate* (Proair HFA*) 8.5 Gm Hfa.aer.ad, 2 PUFF INH Q4H PRN for WHEEZING AND SOB, #1 INHALER 01/28/18 Meclizine Hcl* (Meclizine Hcl*) 25 Mg Tablet, 25 MG PO Q8H PRN for DIZZINESS, TAB 01/28/18 Lisinopril* (Lisinopril*) 5 Mg Tablet, 5 MG PO DAILY, #30 TAB 01/28/18 Lamotrigine* (Lamictal*) 150 Mg Tablet, 75 MG PO BID, TAB 01/28/18 Discontinued Scripts Levothyroxine Sodium* (Levothyroxine Sodium*) 175 Mcg Tablet, 175 MCG PO BEFORE BREAKFAST for 30 Days, #30 TAB Prov:JOS FOSTER MD 02/13/18 Ferrous Sulfate* (Ferrous Sulfate*) 325 Mg Tabec, 325 MG PO DAILY for 30 Days, #30 TAB Prov:JOS FOSTER MD 02/13/18 Metronidazole* (Flagyl*) 500 Mg Tablet, 500 MG PO Q8 for 7 Days, #20 TAB Prov:JOS FOSTER MD 02/13/18 Medications Current Medications Levalbuterol (Xopenex Neb) 0.63 mg Q6H RESP THERAPY HHN Last administered on 09/16/18at 20:29; Admin Dose 0.63 MG; Start 09/16/18 at 20:00 Acetaminophen (Tylenol Tab) 500 mg DAILY PO ; Start 09/17/18 at 09:00 Allopurinol (Zyloprim) 100 mg DAILY PO ; Start 09/17/18 at 09:00 Aripiprazole (Abilify) 5 mg DAILY PO ; Start 09/17/18 at 09:00 Aspirin (Halfprin) 81 mg DAILY PO ; Start 09/17/18 at 09:00 Atorvastatin Calcium (Lipitor) 80 mg QHS PO Last administered on 09/16/18at 21:05; Admin Dose 80 MG; Start 09/16/18 at 21:00 Carvedilol (Coreg) 3.125 mg BID PO ; Start 09/16/18 at 21:00 Cyanocobalamin (Vitamin B12) 1,000 mcg DAILY PO ; Start 09/17/18 at 09:00 Digoxin (Digoxin) 0.125 mg DAILY@1300 PO ; Start 09/17/18 at 13:00 Furosemide (Lasix) 20 mg DAILY PO ; Start 09/17/18 at 09:00 Glimepiride (Amaryl) 2 mg WITH BREAKFAST PO ; Start 09/17/18 at 07:55 Levothyroxine Sodium (Synthroid) 150 mcg BEFORE BREAKFAST PO ; Start 09/17/18 at 07:00 Pantoprazole (Protonix Tab) 40 mg DAILY PO ; Start 09/17/18 at 09:00 Miscellaneous Information 1 ea NOTE XX ; Start 09/16/18 at 19:30 Glucose (Glutose) 15 gm Q15M PRN PO DECREASED GLUCOSE; Start 09/16/18 at 19:30 Glucose (Glutose) 22.5 gm Q15M PRN PO DECREASED GLUCOSE; Start 09/16/18 at 19:30 Dextrose (D50w Syringe) 25 ml Q15M PRN IV DECREASED GLUCOSE; Start 09/16/18 at 19:30 Dextrose (D50w Syringe) 50 ml Q15M PRN IV DECREASED GLUCOSE; Start 09/16/18 at 19:30 Glucagon (Glucagen) 1 mg Q15M PRN IM DECREASED GLUCOSE; Start 09/16/18 at 19:30 Glucose (Glutose) 15 gm Q15M PRN BUCCAL DECREASED GLUCOSE; Start 09/16/18 at 19:30 Allergies: Coded Allergies: iodine (Verified Allergy, Mild, 09/16/18) procainamide (Verified Allergy, Mild, 09/16/18) Past Surgical History Past Surgical Hx: angioplasty, cholecystectomy, other Family History Significant Family History: no pertinent family hx Social History Alcohol Use: none Smoking Status: Current every day smoker Drug Use: none Exam/Review of Systems Exam Vitals Vital Signs Date Temp Pulse Resp B/P (MAP) Pulse Ox O2 O2 Flow FiO2 Time Delivery Rate 09/16/18 2.0 20:34 09/16/18 62 18 95 21 20:33 09/16/18 97.6 109/53 19:50 (71) 09/16/18 Room Air 17:53 Exam Constitutional: oriented, frail Psych: no complaints Head: normocephalic Eyes: nl conjunctiva ENMT: nl external ears & nose Neck: supple, non-tender Respiratory: clear to auscultation Cardiovascular: regular rate and rhythm Gastrointestinal: soft Musculoskeletal: nl extremities to inspection Results Result Diagram: 09/16/18 1217 09/16/18 1217 Results 24hrs Laboratory Tests Test 09/16/18 12:17 09/16/18 18:02 White Blood Count 10.0 # Red Blood Count 4.24 L Hemoglobin 12.4 L Hematocrit 39.4 L Mean Corpuscular Volume 92.9 Mean Corpuscular Hemoglobin 29.2 Mean Corpuscular Hemoglobin Concent 31.5 L Red Cell Distribution Width 14.1 # Platelet Count 241 Mean Platelet Volume 10.1 Immature Granulocytes % 0.400 Neutrophils % 74.0 Lymphocytes % 15.6 Monocytes % 6.9 Eosinophils % 2.7 Basophils % 0.4 Nucleated Red Blood Cells % 0.0 Immature Granulocytes # 0.040 H Neutrophils # 7.4 Lymphocytes # 1.6 Monocytes # 0.7 Eosinophils # 0.3 Basophils # 0.0 Nucleated Red Blood Cells # 0.0 Prothrombin Time 13.0 Prothrombin Time Ratio 1.0 INR International Normalized Ratio 0.97 Activated Partial Thromboplast Time 33.2 Sodium Level 140 Potassium Level 4.3 Chloride Level 107 Carbon Dioxide Level 24 Anion Gap 9 Blood Urea Nitrogen 35 H Creatinine 2.05 H Est Glomerular Filtrat Rate mL/min Glucose Level 140 Calcium Level 9.5 Magnesium Level 2.3 Total Bilirubin 0.6 Direct Bilirubin 0.00 Indirect Bilirubin 0.6 Aspartate Amino Transf (AST/SGOT) 17 Alanine Aminotransferase (ALT/SGPT) 11 L Alkaline Phosphatase 63 Troponin I 0.059 0.051 Total Protein 7.3 Albumin 4.0 Globulin 3.30 H Albumin/Globulin Ratio 1.21 Digoxin Level 1.5 Creatine Kinase 51 Creatine Kinase Index 3.4 Creatinine Kinase MB (Mass) 1.74 Medications Medication Current Medications Levalbuterol (Xopenex Neb) 0.63 mg Q6H RESP THERAPY HHN Last administered on 09/16/18at 20:29; Admin Dose 0.63 MG; Start 09/16/18 at 20:00 Acetaminophen (Tylenol Tab) 500 mg DAILY PO ; Start 09/17/18 at 09:00 Allopurinol (Zyloprim) 100 mg DAILY PO ; Start 09/17/18 at 09:00 Aripiprazole (Abilify) 5 mg DAILY PO ; Start 09/17/18 at 09:00 Aspirin (Halfprin) 81 mg DAILY PO ; Start 09/17/18 at 09:00 Atorvastatin Calcium (Lipitor) 80 mg QHS PO Last administered on 09/16/18at 21:05; Admin Dose 80 MG; Start 09/16/18 at 21:00 Carvedilol (Coreg) 3.125 mg BID PO ; Start 09/16/18 at 21:00 Cyanocobalamin (Vitamin B12) 1,000 mcg DAILY PO ; Start 09/17/18 at 09:00 Digoxin (Digoxin) 0.125 mg DAILY@1300 PO ; Start 09/17/18 at 13:00 Furosemide (Lasix) 20 mg DAILY PO ; Start 09/17/18 at 09:00 Glimepiride (Amaryl) 2 mg WITH BREAKFAST PO ; Start 09/17/18 at 07:55 Levothyroxine Sodium (Synthroid) 150 mcg BEFORE BREAKFAST PO ; Start 09/17/18 at 07:00 Pantoprazole (Protonix Tab) 40 mg DAILY PO ; Start 09/17/18 at 09:00 Miscellaneous Information 1 ea NOTE XX ; Start 09/16/18 at 19:30 Glucose (Glutose) 15 gm Q15M PRN PO DECREASED GLUCOSE; Start 09/16/18 at 19:30 Glucose (Glutose) 22.5 gm Q15M PRN PO DECREASED GLUCOSE; Start 09/16/18 at 19:30 Dextrose (D50w Syringe) 25 ml Q15M PRN IV DECREASED GLUCOSE; Start 09/16/18 at 19:30 Dextrose (D50w Syringe) 50 ml Q15M PRN IV DECREASED GLUCOSE; Start 09/16/18 at 19:30 Glucagon (Glucagen) 1 mg Q15M PRN IM DECREASED GLUCOSE; Start 09/16/18 at 19:30 Glucose (Glutose) 15 gm Q15M PRN BUCCAL DECREASED GLUCOSE; Start 09/16/18 at 19:30 MIHAI JOSEPH MD Sep 16, 2018 21:45
[2018-09-17] VITALS (7 sets, daily range): BP systolic 96–112; BP diastolic 50–70; PULSE 52–62; RESP 18–20
[2018-09-17] MEDS: LEVALBUTEROL (NEB) 0.63 MG/3 ML AMP HHN SCH ×4 (01:39→20:50)
[2018-09-17] MEDS: LEVOTHYROXINE 150 MCG TAB PO SCH (06:24)
[2018-09-17] MEDS: INSULIN ASPART [NOVOLOG] 3 ML PEN SC SCH ×4 (07:56→20:55)
[2018-09-17] MEDS: GLIMEPIRIDE 2 MG TAB PO SCH (08:13)
[2018-09-17] MEDS: CYANOCOBALAMIN 500 MCG TAB PO SCH (08:13)
[2018-09-17] MEDS: FUROSEMIDE 20 MG TAB PO SCH (08:13)
[2018-09-17] MEDS: ARIPIPRAZOLE 5 MG TAB PO SCH (08:13)
[2018-09-17] MEDS: ASPIRIN (EC) 81 MG TAB PO SCH (08:14)
[2018-09-17] MEDS: ALLOPURINOL 100 MG TAB PO SCH (08:14)
[2018-09-17] MEDS: PANTOPRAZOLE (EC) 40 MG TAB PO SCH (08:14)
[2018-09-17] MEDS: ACETAMINOPHEN 500 MG TAB PO SCH (08:15)
--- NOTE | 2018-09-17 09:41 | CONS ---
Consultation Date/Type/Reason Admit Date/Time Sep 16, 2018 at 14:48 Type of Consult Cardiology Date/Time of Note DATE: 09/17/18 TIME: 09:40 Hx of Present Illness 78 yo with CAD, DVT, HTN, ICD, CHF EF 3) % - not anti-coag with severe BM proved anemia - plan for gentle fluid optimization - ICD with good function, r/o IL. Past Medical History Home Meds Active Scripts Allopurinol* (Allopurinol*) 100 Mg Tablet, 100 MG PO DAILY for 30 Days, #30 TAB Prov:JOS FOSTER MD 02/13/18 Cyanocobalamin* (Vitamin B12*) 500 Mcg Tab, 1000 MCG PO DAILY for 30 Days, #30 TAB Prov:JOS FOSTER MD 02/13/18 Aspirin Delayed Release (Aspirin Delayed Release) 81 Mg Tablet.dr, 81 MG PO DAILY for 30 Days, #30 Prov:JOS FOSTER MD 02/13/18 Reported Medications Aripiprazole (Aripiprazole) 5 Mg Tablet, 0.5 TAB ORAL DAILY 09/16/18 Lisinopril* (Lisinopril*) 2.5 Mg Tablet, 1 TAB ORAL DAILY 09/16/18 Acetaminophen* (Acetaminophen*) 500 MG Extra Strength Tablet, 500 MG PO DAILY, TAB 09/16/18 Lamotrigine* (Lamotrigine*) 100 Mg Tablet, 1 TAB ORAL BID 09/16/18 Digoxin* (Lanoxin*) 0.125 Mg Tablet, 0.125 MG PO DAILY, TAB 01/28/18 Glimepiride* (Glimepiride*) 2 Mg Tablet, 2 MG PO WITH BREAKFAST, TAB 01/28/18 Furosemide* (Lasix*) 20 Mg Tablet, 20 MG PO DAILY, TAB 01/28/18 Carvedilol* (Carvedilol*) 3.125 Mg Tablet, 3.125 MG PO BID, #60 TAB 01/28/18 Pantoprazole* (Protonix*) 40 Mg Tablet.dr, 40 MG PO DAILY, TAB 01/28/18 Levothyroxine Sodium* (Levoxyl*) 150 Mcg Tablet, 150 MCG PO BEFORE BREAKFAST, #30 TAB 01/28/18 Atorvastatin* (Atorvastatin*) 80 Mg Tablet, 80 MG PO QHS, #30 TAB 01/28/18 Discontinued Reported Medications Albuterol Sulfate* (Proair HFA*) 8.5 Gm Hfa.aer.ad, 2 PUFF INH Q4H PRN for WHEEZING AND SOB, #1 INHALER 01/28/18 Meclizine Hcl* (Meclizine Hcl*) 25 Mg Tablet, 25 MG PO Q8H PRN for DIZZINESS, TAB 01/28/18 Lisinopril* (Lisinopril*) 5 Mg Tablet, 5 MG PO DAILY, #30 TAB 01/28/18 Lamotrigine* (Lamictal*) 150 Mg Tablet, 75 MG PO BID, TAB 01/28/18 Discontinued Scripts Levothyroxine Sodium* (Levothyroxine Sodium*) 175 Mcg Tablet, 175 MCG PO BEFORE BREAKFAST for 30 Days, #30 TAB Prov:JOS FOSTER MD 02/13/18 Ferrous Sulfate* (Ferrous Sulfate*) 325 Mg Tabec, 325 MG PO DAILY for 30 Days, #30 TAB Prov:JOS FOSTER MD 02/13/18 Metronidazole* (Flagyl*) 500 Mg Tablet, 500 MG PO Q8 for 7 Days, #20 TAB Prov:JOS FOSTER MD 02/13/18 Medications Current Medications Levalbuterol (Xopenex Neb) 0.63 mg Q6H RESP THERAPY HHN Last administered on 09/17/18at 09:00; Admin Dose 0.63 MG; Start 09/16/18 at 20:00 Acetaminophen (Tylenol Tab) 500 mg DAILY PO Last administered on 09/17/18at 08:15; Admin Dose 500 MG; Start 09/17/18 at 09:00 Allopurinol (Zyloprim) 100 mg DAILY PO Last administered on 09/17/18 08:14; Admin Dose 100 MG; Start 09/17/18 at 09:00 Aripiprazole (Abilify) 5 mg DAILY PO Last administered on 09/17/18 08:13; Admin Dose 5 MG; Start 09/17/18 at 09:00 Aspirin (Halfprin) 81 mg DAILY PO Last administered on 09/17/18 08:14; Admin Dose 81 MG; Start 09/17/18 at 09:00 Atorvastatin Calcium (Lipitor) 80 mg QHS PO Last administered on 09/16/18at 21:05; Admin Dose 80 MG; Start 09/16/18 at 21:00 Carvedilol (Coreg) 3.125 mg BID PO ; Start 09/16/18 at 21:00 Cyanocobalamin (Vitamin B12) 1,000 mcg DAILY PO Last administered on 09/17/18at 08:13; Admin Dose 1,000 MCG; Start 09/17/18 at 09:00 Digoxin (Digoxin) 0.125 mg DAILY@1300 PO ; Start 09/17/18 at 13:00 Furosemide (Lasix) 20 mg DAILY PO Last administered on 09/17/18at 08:13; Admin Dose 20 MG; Start 09/17/18 at 09:00 Glimepiride (Amaryl) 2 mg WITH BREAKFAST PO Last administered on 09/17/18at 08:13; Admin Dose 2 MG; Start 09/17/18 at 07:55 Levothyroxine Sodium (Synthroid) 150 mcg BEFORE BREAKFAST PO Last administered on 09/17/18at 06:24; Admin Dose 150 MCG; Start 09/17/18 at 07:00 Pantoprazole (Protonix Tab) 40 mg DAILY PO Last administered on 09/17/18at 08:14; Admin Dose 40 MG; Start 09/17/18 at 09:00 Miscellaneous Information 1 ea NOTE XX ; Start 09/16/18 at 19:30 Glucose (Glutose) 15 gm Q15M PRN PO DECREASED GLUCOSE; Start 09/16/18 at 19:30 Glucose (Glutose) 22.5 gm Q15M PRN PO DECREASED GLUCOSE; Start 09/16/18 at 19:30 Dextrose (D50w Syringe) 25 ml Q15M PRN IV DECREASED GLUCOSE; Start 09/16/18 at 19:30 Dextrose (D50w Syringe) 50 ml Q15M PRN IV DECREASED GLUCOSE; Start 09/16/18 at 19:30 Glucagon (Glucagen) 1 mg Q15M PRN IM DECREASED GLUCOSE; Start 09/16/18 at 19:30 Glucose (Glutose) 15 gm Q15M PRN BUCCAL DECREASED GLUCOSE; Start 09/16/18 at 19:30 Insulin Aspart (Novolog Insulin Pen) NOVOLOG *MILD* ALGORITHM WITH MEALS BEDTIME SC ; Start 09/17/18 at 08:30 Allergies: Coded Allergies: iodine (Verified Allergy, Mild, 09/16/18) procainamide (Verified Allergy, Mild, 09/16/18) Past Surgical History Past Surgical Hx: angioplasty, cholecystectomy, other Social History Alcohol Use: none Smoking Status: Current every day smoker Drug Use: none Exam/Review of Systems Vital Signs Vitals Vital Signs Date Temp Pulse Resp B/P (MAP) Pulse Ox O2 O2 Flow FiO2 Time Delivery Rate 09/17/18 54 18 98 21 09:00 09/17/18 98.0 101/62 07:57 (75) 09/16/18 2.0 20:34 09/16/18 Room Air 17:53 Intake and Output 09/16/18 09/16/18 09/17/18 1515:00 23:00 07:00 IntakeIntake Total 500 ml OutputOutput Total 500 ml BalanceBalance 0 ml Labs Result Diagram: 09/16/18 1217 09/16/18 1217 Results 24hrs Laboratory Tests Test 09/16/18 12:17 09/16/18 18:02 09/17/18 00:34 09/17/18 06:29 White Blood Count 10.0 # Red Blood Count 4.24 L Hemoglobin 12.4 L Hematocrit 39.4 L Mean Corpuscular 92.9 Volume Mean Corpuscular 29.2 Hemoglobin Mean Corpuscular 31.5 L Hemoglobin Concent Red Cell 14.1 # Distribution Width Platelet Count 241 Mean Platelet Volume 10.1 Immature 0.400 Granulocytes % Neutrophils % 74.0 Lymphocytes % 15.6 Monocytes % 6.9 Eosinophils % 2.7 Basophils % 0.4 Nucleated Red Blood 0.0 Cells % Immature 0.040 H Granulocytes # Neutrophils # 7.4 Lymphocytes # 1.6 Monocytes # 0.7 Eosinophils # 0.3 Basophils # 0.0 Nucleated Red Blood 0.0 Cells # Prothrombin Time 13.0 Prothrombin Time 1.0 Ratio INR International 0.97 Normalized Ratio Activated 33.2 Partial Thromboplast Time Sodium Level 140 Potassium Level 4.3 Chloride Level 107 Carbon Dioxide Level 24 Anion Gap 9 Blood Urea Nitrogen 35 H Creatinine 2.05 H Est Glomerular Filtrat Rate mL/min Glucose Level 140 Calcium Level 9.5 Magnesium Level 2.3 Total Bilirubin 0.6 Direct Bilirubin 0.00 Indirect Bilirubin 0.6 Aspartate Amino 17 Transf (AST/SGOT) Alanine 11 L Aminotransferase (AL T/SGPT) Alkaline Phosphatase 63 Troponin I 0.059 0.051 0.062 Total Protein 7.3 Albumin 4.0 Globulin 3.30 H Albumin/Globulin 1.21 Ratio Digoxin Level 1.5 Creatine Kinase 51 50 Creatine Kinase 3.4 3.4 Index Creatinine Kinase MB 1.74 1.71 (Mass) Bedside Glucose 118 Test 09/17/18 06:43 09/17/18 07:55 Uric Acid 7.4 Creatine Kinase 48 Bedside Glucose 113 Medications Medications Current Medications Levalbuterol (Xopenex Neb) 0.63 mg Q6H RESP THERAPY HHN Last administered on 09/17/18 09:00; Admin Dose 0.63 MG; Start 09/16/18 at 20:00 Acetaminophen (Tylenol Tab) 500 mg DAILY PO Last administered on 09/17/18 08:15; Admin Dose 500 MG; Start 09/17/18 at 09:00 Allopurinol (Zyloprim) 100 mg DAILY PO Last administered on 09/17/18 08:14; Admin Dose 100 MG; Start 09/17/18 at 09:00 Aripiprazole (Abilify) 5 mg DAILY PO Last administered on 09/17/18 08:13; Admin Dose 5 MG; Start 09/17/18 at 09:00 Aspirin (Halfprin) 81 mg DAILY PO Last administered on 09/17/18 08:14; Admin Dose 81 MG; Start 09/17/18 at 09:00 Atorvastatin Calcium (Lipitor) 80 mg QHS PO Last administered on 09/16/18 21:05; Admin Dose 80 MG; Start 09/16/18 at 21:00 Carvedilol (Coreg) 3.125 mg BID PO ; Start 09/16/18 at 21:00 Cyanocobalamin (Vitamin B12) 1,000 mcg DAILY PO Last administered on 09/17/18 08:13; Admin Dose 1,000 MCG; Start 09/17/18 at 09:00 Digoxin (Digoxin) 0.125 mg DAILY@1300 PO ; Start 09/17/18 at 13:00 Furosemide (Lasix) 20 mg DAILY PO Last administered on 09/17/18 08:13; Admin Dose 20 MG; Start 09/17/18 at 09:00 Glimepiride (Amaryl) 2 mg WITH BREAKFAST PO Last administered on 09/17/18 08:13; Admin Dose 2 MG; Start 09/17/18 at 07:55 Levothyroxine Sodium (Synthroid) 150 mcg BEFORE BREAKFAST PO Last administered on 09/17/18at 06:24; Admin Dose 150 MCG; Start 09/17/18 at 07:00 Pantoprazole (Protonix Tab) 40 mg DAILY PO Last administered on 09/17/18at 08:14; Admin Dose 40 MG; Start 09/17/18 at 09:00 Miscellaneous Information 1 ea NOTE XX ; Start 09/16/18 at 19:30 Glucose (Glutose) 15 gm Q15M PRN PO DECREASED GLUCOSE; Start 09/16/18 at 19:30 Glucose (Glutose) 22.5 gm Q15M PRN PO DECREASED GLUCOSE; Start 09/16/18 at 19:30 Dextrose (D50w Syringe) 25 ml Q15M PRN IV DECREASED GLUCOSE; Start 09/16/18 at 19:30 Dextrose (D50w Syringe) 50 ml Q15M PRN IV DECREASED GLUCOSE; Start 09/16/18 at 19:30 Glucagon (Glucagen) 1 mg Q15M PRN IM DECREASED GLUCOSE; Start 09/16/18 at 19:30 Glucose (Glutose) 15 gm Q15M PRN BUCCAL DECREASED GLUCOSE; Start 09/16/18 at 19:30 Insulin Aspart (Novolog Insulin Pen) NOVOLOG *MILD* ALGORITHM WITH MEALS BEDTIME SC ; Start 09/17/18 at 08:30 VALE TURCIOS MD Sep 17, 2018 09:41
--- NOTE | 2018-09-17 10:48 | CONS ---
Assessment/Plan Assessment/Plan Assessment/Plan (Daily) 1. acute kidney injury on CKD III due to prerenal azotemia + hemodynamics 2. 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 H/o Myelodysplastic syndrome 4.H/o CAD with previous stent placement 5. H/o Ischemic Cardiomyopathy s/p AICD placement 6. H/o COPD 7. H/o DM II 8. H/o Hypothyroidism 9. 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 S/p Aortic valve replacement in 2015 11. H/o BPH Plan : continue Lasix 20mg pO daily - BMP stat now Renal US showed Normal kidneys Enlarged heterogeneous prostate Avoid nephrotoxic medications, renally dose all abx Flomax 0.4 mg po daily, PSA in AM labs will follow up Consultation Date/Type/Reason Admit Date/Time Sep 16, 2018 at 14:48 Initial Consult Date 09/16/18 Type of Consult NEPHROLOGY Requesting Provider: JOS FOSTER MD Date/Time of Note DATE: 09/17/18 TIME: 10:45 Exam/Review of Systems Exam Vitals Vital Signs Date Temp Pulse Resp B/P (MAP) Pulse Ox O2 O2 Flow FiO2 Time Delivery Rate 09/17/18 54 18 98 21 09:00 09/17/18 98.0 101/62 07:57 (75) 09/16/18 2.0 20:34 09/16/18 Room Air 17:53 Intake and Output 09/16/18 09/16/18 09/17/18 1515:00 23:00 07:00 IntakeIntake Total 500 ml OutputOutput Total 500 ml BalanceBalance 0 ml Exam Constitutional: oriented, frail Psych: no complaints Head: normocephalic Eyes: nl conjunctiva ENMT: nl external ears & nose Neck: supple, non-tender Respiratory: clear to auscultation Cardiovascular: regular rate and rhythm Gastrointestinal: soft Musculoskeletal: nl extremities to inspection Results Result Diagram: 09/16/18 1217 09/16/18 1217 Results 24hrs Laboratory Tests Test 09/16/18 12:17 09/16/18 18:02 09/17/18 00:34 09/17/18 06:29 White Blood Count 10.0 # Red Blood Count 4.24 L Hemoglobin 12.4 L Hematocrit 39.4 L Mean Corpuscular 92.9 Volume Mean Corpuscular 29.2 Hemoglobin Mean Corpuscular 31.5 L Hemoglobin Concent Red Cell 14.1 # Distribution Width Platelet Count 241 Mean Platelet Volume 10.1 Immature 0.400 Granulocytes % Neutrophils % 74.0 Lymphocytes % 15.6 Monocytes % 6.9 Eosinophils % 2.7 Basophils % 0.4 Nucleated Red Blood 0.0 Cells % Immature 0.040 H Granulocytes # Neutrophils # 7.4 Lymphocytes # 1.6 Monocytes # 0.7 Eosinophils # 0.3 Basophils # 0.0 Nucleated Red Blood 0.0 Cells # Prothrombin Time 13.0 Prothrombin Time 1.0 Ratio INR International 0.97 Normalized Ratio Activated 33.2 Partial Thromboplast Time Sodium Level 140 Potassium Level 4.3 Chloride Level 107 Carbon Dioxide Level 24 Anion Gap 9 Blood Urea Nitrogen 35 H Creatinine 2.05 H Est Glomerular Filtrat Rate mL/min Glucose Level 140 Calcium Level 9.5 Magnesium Level 2.3 Total Bilirubin 0.6 Direct Bilirubin 0.00 Indirect Bilirubin 0.6 Aspartate Amino 17 Transf (AST/SGOT) Alanine 11 L Aminotransferase (AL T/SGPT) Alkaline Phosphatase 63 Troponin I 0.059 0.051 0.062 Total Protein 7.3 Albumin 4.0 Globulin 3.30 H Albumin/Globulin 1.21 Ratio Digoxin Level 1.5 Creatine Kinase 51 50 Creatine Kinase 3.4 3.4 Index Creatinine Kinase MB 1.74 1.71 (Mass) Bedside Glucose 118 Test 09/17/18 06:43 09/17/18 07:55 Uric Acid 7.4 Creatine Kinase 48 Bedside Glucose 113 Medications Medication Current Medications Levalbuterol (Xopenex Neb) 0.63 mg Q6H RESP THERAPY HHN Last administered on 09/17/18at 09:00; Admin Dose 0.63 MG; Start 09/16/18 at 20:00 Acetaminophen (Tylenol Tab) 500 mg DAILY PO Last administered on 09/17/18 08:15; Admin Dose 500 MG; Start 09/17/18 at 09:00 Allopurinol (Zyloprim) 100 mg DAILY PO Last administered on 09/17/18at 08:14; Admin Dose 100 MG; Start 09/17/18 at 09:00 Aripiprazole (Abilify) 5 mg DAILY PO Last administered on 09/17/18at 08:13; Admin Dose 5 MG; Start 09/17/18 at 09:00 Aspirin (Halfprin) 81 mg DAILY PO Last administered on 09/17/18at 08:14; Admin Dose 81 MG; Start 09/17/18 at 09:00 Atorvastatin Calcium (Lipitor) 80 mg QHS PO Last administered on 09/16/18at 21:05; Admin Dose 80 MG; Start 09/16/18 at 21:00 Carvedilol (Coreg) 3.125 mg BID PO ; Start 09/16/18 at 21:00 Cyanocobalamin (Vitamin B12) 1,000 mcg DAILY PO Last administered on 09/17/18at 08:13; Admin Dose 1,000 MCG; Start 09/17/18 at 09:00 Digoxin (Digoxin) 0.125 mg DAILY@1300 PO ; Start 09/17/18 at 13:00 Furosemide (Lasix) 20 mg DAILY PO Last administered on 09/17/18at 08:13; Admin Dose 20 MG; Start 09/17/18 at 09:00 Glimepiride (Amaryl) 2 mg WITH BREAKFAST PO Last administered on 09/17/18at 08:13; Admin Dose 2 MG; Start 09/17/18 at 07:55 Levothyroxine Sodium (Synthroid) 150 mcg BEFORE BREAKFAST PO Last administered on 09/17/18at 06:24; Admin Dose 150 MCG; Start 09/17/18 at 07:00 Pantoprazole (Protonix Tab) 40 mg DAILY PO Last administered on 09/17/18at 08:14; Admin Dose 40 MG; Start 09/17/18 at 09:00 Miscellaneous Information 1 ea NOTE XX ; Start 09/16/18 at 19:30 Glucose (Glutose) 15 gm Q15M PRN PO DECREASED GLUCOSE; Start 09/16/18 at 19:30 Glucose (Glutose) 22.5 gm Q15M PRN PO DECREASED GLUCOSE; Start 09/16/18 at 19:30 Dextrose (D50w Syringe) 25 ml Q15M PRN IV DECREASED GLUCOSE; Start 09/16/18 at 19:30 Dextrose (D50w Syringe) 50 ml Q15M PRN IV DECREASED GLUCOSE; Start 09/16/18 at 19:30 Glucagon (Glucagen) 1 mg Q15M PRN IM DECREASED GLUCOSE; Start 09/16/18 at 19:30 Glucose (Glutose) 15 gm Q15M PRN BUCCAL DECREASED GLUCOSE; Start 09/16/18 at 19:30 Insulin Aspart (Novolog Insulin Pen) NOVOLOG *MILD* ALGORITHM WITH MEALS BEDTIME SC ; Start 09/17/18 at 08:30 MIHAI JOSEPH MD Sep 17, 2018 10:48
[2018-09-17] MEDS ORDERED: TAMSULOSIN (SR) 0.4 MG CAP PO ONE (11:00)
[2018-09-17] MEDS: DIGOXIN 0.125 MG TAB PO SCH (12:17)
--- NOTE | 2018-09-17 15:31 | PN ---
Date/Time of Note Date/Time of Note DATE: 09/17/18 TIME: 15:26 Assessment/Plan VTE Prophylaxis Risk score (from Ns)>0 risk: 6 SCD applied (from Ns): Yes Pharmacological prophylaxis: NA/contraindicated Pharm contraindication: anticoag not tolerated Lines/Catheters [facility] Peripheral IV Urinary Cath still in place: No Assessment/Plan Hospital Course Patient is awake alert, ventricular paced with occasional PVCs with heart rate ranging from 50-60, continue current care monitor renal function, PT eval. Assessment/Plan -Dizziness, hypotension. Telemetry monitoring. Continue digoxin and Coreg, cardiac enzymes negative x3. -Ischemic cardiomyopathy with ejection fraction of 30%. Dr. Choudhury is asked to see patient in in cardiology consultation. -Acute kidney injury on chronic kidney disease stage III, continue to monitor BUN and creatinine. Dr. Novak is asked to see patient in nephrology consultation -Hx of AICD placement for symptomatic bradycardia -Coronary artery disease with history of stent placement. Continue aspirin. -Status post transcatheter aortic valve replacement in 2016. -Chronic obstructive pulmonary disease. -Diabetes mellitus -Hx of Chronic right CA[employer]MER territory infarct Further recommendations based on clinical course. Plan of care discussed with Dr. Giron. Result Diagram: 09/16/18 1217 09/17/18 1059 Results 24hrs Laboratory Tests Test 09/16/18 18:02 09/17/18 00:34 09/17/18 06:29 09/17/18 06:30 Creatine Kinase 51 50 Creatine Kinase 3.4 3.4 Index Creatinine Kinase MB 1.74 1.71 (Mass) Troponin I 0.051 0.062 Bedside Glucose 118 Urine Eosinophils % 0.0 Urine Random 93.71 Creatinine Urine Random Sodium 156 H Urine 0.11 Protein/Creatinine Ratio Urine Total Protein 11.0 Test 09/17/18 06:43 09/17/18 07:55 09/17/18 10:59 09/17/18 11:33 Uric Acid 7.4 Creatine Kinase 48 Bedside Glucose 113 154 Sodium Level 139 Potassium Level 4.2 Chloride Level 105 Carbon Dioxide Level 27 Anion Gap 7 Blood Urea Nitrogen 29 H Creatinine 1.70 H Est Glomerular Filtrat Rate mL/min Glucose Level 168 Calcium Level 9.6 Exam/Review of Systems Exam Vitals Vital Signs Date Temp Pulse Resp B/P (MAP) Pulse Ox O2 O2 Flow FiO2 Time Delivery Rate 09/17/18 53 18 99 21 12:39 09/17/18 98.0 112/70 12:12 (84) 09/16/18 2.0 20:34 09/16/18 Room Air 17:53 Intake and Output 09/16/18 09/16/18 09/17/18 1515:00 23:00 07:00 IntakeIntake Total 500 ml OutputOutput Total 500 ml BalanceBalance 0 ml Exam Constitutional: alert, oriented Respiratory: clear to auscultation Cardiovascular: regular rate and rhythm, other (Left chest AICD) Gastrointestinal: soft, non-tender Musculoskeletal: nl extremities to inspection Extremities: normal pulses Neurological: nl mental status Skin: nl turgor Results Results 24hrs Laboratory Tests Test 09/16/18 18:02 09/17/18 00:34 09/17/18 06:29 09/17/18 06:30 Creatine Kinase 51 50 Creatine Kinase 3.4 3.4 Index Creatinine Kinase MB 1.74 1.71 (Mass) Troponin I 0.051 0.062 Bedside Glucose 118 Urine Eosinophils % 0.0 Urine Random 93.71 Creatinine Urine Random Sodium 156 H Urine 0.11 Protein/Creatinine Ratio Urine Total Protein 11.0 Test 09/17/18 06:43 09/17/18 07:55 09/17/18 10:59 09/17/18 11:33 Uric Acid 7.4 Creatine Kinase 48 Bedside Glucose 113 154 Sodium Level 139 Potassium Level 4.2 Chloride Level 105 Carbon Dioxide Level 27 Anion Gap 7 Blood Urea Nitrogen 29 H Creatinine 1.70 H Est Glomerular Filtrat Rate mL/min Glucose Level 168 Calcium Level 9.6 Medications Medication Current Medications Levalbuterol (Xopenex Neb) 0.63 mg Q6H RESP THERAPY HHN Last administered on 09/17/18at 12:37; Admin Dose 0.63 MG; Start 09/16/18 at 20:00 Acetaminophen (Tylenol Tab) 500 mg DAILY PO Last administered on 09/17/18at 08:15; Admin Dose 500 MG; Start 09/17/18 at 09:00 Allopurinol (Zyloprim) 100 mg DAILY PO Last administered on 09/17/18at 08:14; Admin Dose 100 MG; Start 09/17/18 at 09:00 Aripiprazole (Abilify) 5 mg DAILY PO Last administered on 09/17/18 08:13; Admin Dose 5 MG; Start 09/17/18 at 09:00 Aspirin (Halfprin) 81 mg DAILY PO Last administered on 09/17/18 08:14; Admin Dose 81 MG; Start 09/17/18 at 09:00 Atorvastatin Calcium (Lipitor) 80 mg QHS PO Last administered on 09/16/18at 21:05; Admin Dose 80 MG; Start 09/16/18 at 21:00 Carvedilol (Coreg) 3.125 mg BID PO ; Start 09/16/18 at 21:00 Cyanocobalamin (Vitamin B12) 1,000 mcg DAILY PO Last administered on 09/17/18 08:13; Admin Dose 1,000 MCG; Start 09/17/18 at 09:00 Digoxin (Digoxin) 0.125 mg DAILY@1300 PO Last administered on 09/17/18 12:17; Admin Dose 0.125 MG; Start 09/17/18 at 13:00 Furosemide (Lasix) 20 mg DAILY PO Last administered on 09/17/18 08:13; Admin Dose 20 MG; Start 09/17/18 at 09:00 Glimepiride (Amaryl) 2 mg WITH BREAKFAST PO Last administered on 09/17/18 08:13; Admin Dose 2 MG; Start 09/17/18 at 07:55 Levothyroxine Sodium (Synthroid) 150 mcg BEFORE BREAKFAST PO Last administered on 09/17/18 06:24; Admin Dose 150 MCG; Start 09/17/18 at 07:00 Pantoprazole (Protonix Tab) 40 mg DAILY PO Last administered on 09/17/18 08:14; Admin Dose 40 MG; Start 09/17/18 at 09:00 Miscellaneous Information 1 ea NOTE XX ; Start 09/16/18 at 19:30 Glucose (Glutose) 15 gm Q15M PRN PO DECREASED GLUCOSE; Start 09/16/18 at 19:30 Glucose (Glutose) 22.5 gm Q15M PRN PO DECREASED GLUCOSE; Start 09/16/18 at 19:30 Dextrose (D50w Syringe) 25 ml Q15M PRN IV DECREASED GLUCOSE; Start 09/16/18 at 19:30 Dextrose (D50w Syringe) 50 ml Q15M PRN IV DECREASED GLUCOSE; Start 09/16/18 at 19:30 Glucagon (Glucagen) 1 mg Q15M PRN IM DECREASED GLUCOSE; Start 09/16/18 at 19:30 Glucose (Glutose) 15 gm Q15M PRN BUCCAL DECREASED GLUCOSE; Start 09/16/18 at 19:30 Insulin Aspart (Novolog Insulin Pen) NOVOLOG *MILD* ALGORITHM WITH MEALS BEDTIME SC Last administered on 09/17/18at 11:48; Admin Dose 1 UNIT; Start 09/17/18 at 08:30 Tamsulosin HCl (Flomax) 0.4 mg DAILY PO ; Start 09/18/18 at 09:00 SELMA ELMORE Sep 17, 2018 15:30
[2018-09-17] MEDS: ATORVASTATIN 80 MG TAB PO SCH (20:56)
[2018-09-18] VITALS: BP 130/56; PULSE 51; RESP 20
[2018-09-18] MEDS: LEVALBUTEROL (NEB) 0.63 MG/3 ML AMP HHN SCH ×4 (01:36→19:23)
[2018-09-18 03:33] VITALS: BP 113/53; PULSE 56; RESP 18
--- NOTE | 2018-09-18 06:25 | CONS ---
DATE OF ADMISSION: 09/16/2018 DATE OF CONSULTATION: 09/17/2018 TYPE OF CONSULTATION: Cardiology. REFERRING PHYSICIAN: Jos Foster MD REASON FOR EVALUATION: Shortness of breath. HISTORY OF PRESENT ILLNESS: Mr. Snyder is an 78-year-old gentleman, my office patient known to me fro m multiple prior admissions, history of hypertension, dyslipidemia, history of coronary artery diseas e with prior stenting, history of ischemic cardiomyopathy with prior defibrillator, COPD, aortic valv e replacement in 2016, who comes to the hospital now for evaluation of shortness of breath. The suki ent is a very difficult historian. He has significant degree of dementia, although he tries to hide it. The patient does appear to be in some degree of fluid overload for which he is being treated at the moment. It does not appear that the patient is going to rule in for acute myocardial infarction at this particular point. I think for now, conservative therapy is expected. The patient is going t o be diuresed gently. Renal team is on the case. Dr. Novak will follow up for his renal insufficien cy with creatinine from baseline 1.6 to 2.5. Other than that, conservative therapy is likely right n ow. Patient is 100% paced, which is his baseline. PAST MEDICAL HISTORY: 1. Hypertension. 2. Dyslipidemia. 3. History of deep vein thrombosis. 4. History of coronary artery disease. 5. History of ICD placement. 6. History of valve replacement. 7. History of dyslipidemia. 8. History of cyclical state. 9. History of dementia. ALLERGIES: 1. IODINE. 2. PROCAINAMIDE. SOCIAL HISTORY: The patient smoked. Does not drink, does not use drugs, but has history of tobacco use and possible alcohol use in the past. MEDICATIONS: 1. Digoxin 0.15% . 2. Abilify. 3. Aspirin 81. 4. Bactrim. 5. Lasix 20 mg p.o. once a day. 6. Pantoprazole. 7. Insulin sliding scale, moderate dose. 8. Coreg 3.125 mg p.o. once a day. He is currently is not anticoagulated. REVIEW OF SYSTEMS: CONSTITUTIONAL: No fever, no chills, no recent weight change. HEENT: No changes. CARDIAC: . RESPIRATORY: Short of breath, acute on chronic. GASTROINTESTINAL: No nausea, vomiting. GENITOURINARY: No dysuria or hematuria. NEUROLOGIC: history of dementia with . PHYSICAL EXAMINATION: VITAL SIGNS: Temperature 98.7, heart rate is in the 60s. He is 100% paced, blood pressure 101/62. GENERAL: He is a thin gentleman in no acute distress, alert and oriented x1 to 2, not really aware o f his medical condition. HEAD: Normocephalic, atraumatic. . NECK: Supple. JVD 6-7 cm. No lymphadenopathy, no thyromegaly. HEART: Regular with occasional irregularities. LUNGS: Coarse with wheezing. ABDOMEN: Distended, bowel sounds are present. There is no hepatosplenomegaly. EXTREMITIES: Intact . No clubbing, cyanosis. Trace edema. LABORATORY DATA: ECG read by me showed atrial fibrillation with paced rhythm. Shows sodium 140, cre atinine is 2.0. Troponin is negative at 0.051. Chest x-ray shows mild central vascular congestion with aortic sclerosis. ASSESSMENT AND PLAN: 1. Shortness of breath, multifactorial. The patient does appear to be in some degree of fluid overl oad. There might be an infectious component as well. Will continue to treat with gentle diuresis an d follow expectantly. 2. Congestive heart failure. The patient has heart failure, ejection fraction is reduced. Continue to monitor with afterload reduction and gentle diuresis as tolerated. 3. The patient has atrial fibrillation. He does not appear to be anticoagulated at this particular point. I do not recall reason for him not being anticoagulated now and this needs to be investigated as he does have several indications for anticoagulation including DVT as well as atrial fibrillation . The , the patient does have an IVC filter which has been at one point. 4. Hypertension. Blood pressure well controlled now. Continue to monitor clinically. 5. Renal insufficiency, acute on chronic. Dr. Novak follows. Continue to avoid nephrotoxic medicat ions. 5. ICD. ICD was checked in the office. He appears to be 100% paced with good function now. I would like to thank Dr. Foster for referring this patient for my evaluation. Dictated By: VALE UTRCIOS MD ML/NTS Conf#: [id number] DID#: [id number] CC: JOS FOSTER MD;*[facility]*
[2018-09-18 07:17] VITALS: BP 98/56; PULSE 56; RESP 20
[2018-09-18] MEDS: INSULIN ASPART [NOVOLOG] 3 ML PEN SC SCH ×4 (07:55→21:00)
[2018-09-18] MEDS: GLIMEPIRIDE 2 MG TAB PO SCH (07:59)
[2018-09-18] MEDS: LEVOTHYROXINE 150 MCG TAB PO SCH (07:59)
[2018-09-18] MEDS: TAMSULOSIN (SR) 0.4 MG CAP PO SCH (08:57)
[2018-09-18] MEDS: ASPIRIN (EC) 81 MG TAB PO SCH (08:57)
[2018-09-18] MEDS: ALLOPURINOL 100 MG TAB PO SCH (08:57)
[2018-09-18] MEDS: CYANOCOBALAMIN 500 MCG TAB PO SCH (08:57)
[2018-09-18] MEDS: ARIPIPRAZOLE 5 MG TAB PO SCH (08:57)
[2018-09-18] MEDS: PANTOPRAZOLE (EC) 40 MG TAB PO SCH (08:57)
[2018-09-18] MEDS: ACETAMINOPHEN 500 MG TAB PO SCH (08:58)
[2018-09-18] MEDS: FUROSEMIDE 20 MG TAB PO SCH (08:58)
[2018-09-18 11:01] VITALS: BP 91/58; PULSE 55; RESP 20
[2018-09-18] MEDS: DIGOXIN 0.125 MG TAB PO SCH (12:25)
--- NOTE | 2018-09-18 13:13 | CONS ---
Assessment/Plan Assessment/Plan Hospital Course (Demo Recall) IMP: 1.CHF-systolic acute on chrnic 2. Cardiomyopathy-EF 25% by echo 02/12 3.HTN 4.H/O ICD 5.h/o cad s/p prior stent-Neg lexiscan for ischemia 04/15 6.copd 7.SOB 8.Renal failure Recc: -Tele -serial ecg's -Contineu coreg -Contineu asa -start low dose hydralazine afterload reduction as tolerated in lieu of ACEI given renal failure -Contineu lasix diuresis Consultation Date/Type/Reason Admit Date/Time Sep 16, 2018 at 14:48 Initial Consult Date 09/16/18 Type of Consult Cardiology Reason for Consultation AF Requesting Provider: JOS FOSTER MD Date/Time of Note DATE: 09/18/18 TIME: 13:06 Exam/Review of Systems Vital Signs Vitals Vital Signs Date Temp Pulse Resp B/P (MAP) Pulse Ox O2 O2 Flow FiO2 Time Delivery Rate 09/18/18 97.7 55 20 91/58 (69) 98 Room Air 11:01 09/18/18 21 08:17 09/16/18 2.0 20:34 Intake and Output 09/17/18 09/17/18 09/18/18 1515:00 23:00 07:00 IntakeIntake Total 600 ml 240 ml 400 ml OutputOutput Total 1350 ml 900 ml 1225 ml BalanceBalance -750 ml -660 ml -825 ml Exam Exam Review of Systems: CONSTITUTIONAL: No fevers, chills. PULMONARY: mild sob CARDIOVASCULAR: No chest pain/palpitations GASTROINTESTINAL: No nausea/vomiting. GENITOURINARY: No hematuria/dysuria. MUSCULOSKELETAL: No myagias/arthalgias. PSYCHIATRIC: The patient denies depression. NEUROLOGIC: No weakness Constitutional: alert Psych: no complaints Head: normocephalic ENMT: mucosa pink and moist Neck: supple, jvd (9 cm water) Respiratory: diminished breath sounds (at bases/B) Cardiovascular: regular rate and rhythm Gastrointestinal: soft, non-tender Musculoskeletal: muscle tone (normal) Extremities: edema (trace/B) Neurological: other (No focak deficits) Labs Result Diagram: 09/18/18 0706 09/18/18 0705 Results 24hrs Laboratory Tests Test 09/17/18 17:22 09/17/18 20:54 09/18/18 07:05 09/18/18 07:06 Bedside Glucose 92 120 Prothrombin Time 13.5 Prothrombin Time 1.1 Ratio INR International 1.02 Normalized Ratio Activated 34.0 Partial Thromboplast Time Sodium Level 138 Potassium Level 4.5 Chloride Level 103 Carbon Dioxide Level 27 Anion Gap 8 Blood Urea Nitrogen 27 H Creatinine 1.77 H Est Glomerular Filtrat Rate mL/min Glucose Level 113 # Calcium Level 10.1 Total Bilirubin 0.6 Direct Bilirubin 0.00 Indirect Bilirubin 0.6 Aspartate Amino 18 Transf (AST/SGOT) Alanine 14 Aminotransferase (AL T/SGPT) Alkaline Phosphatase 74 Total Protein 6.8 Albumin 3.8 Globulin 3.00 Albumin/Globulin 1.26 Ratio Free Thyroxine Index Pending Thyroxine (T4) Pending Triiodothyronine 35.2 (T3) Uptake White Blood Count 10.0 Red Blood Count 4.13 L Hemoglobin 11.9 L Hematocrit 37.4 L Mean Corpuscular 90.6 Volume Mean Corpuscular 28.8 L Hemoglobin Mean Corpuscular 31.8 L Hemoglobin Concent Red Cell 14.0 Distribution Width Platelet Count 205 Mean Platelet Volume 10.2 Immature 0.400 Granulocytes % Neutrophils % 78.1 H Lymphocytes % 12.9 L Monocytes % 6.7 Eosinophils % 1.6 Basophils % 0.3 Nucleated Red Blood 0.0 Cells % Immature 0.040 H Granulocytes # Neutrophils # 7.8 H Lymphocytes # 1.3 Monocytes # 0.7 Eosinophils # 0.2 Basophils # 0.0 Nucleated Red Blood 0.0 Cells # Magnesium Level 2.0 Prostate Specific 0.8 Antigen Test 09/18/18 07:58 09/18/18 12:06 Bedside Glucose 112 143 Medications Medications Current Medications Levalbuterol (Xopenex Neb) 0.63 mg Q6H RESP THERAPY HHN Last administered on 09/18/18at 08:17; Admin Dose 0.63 MG; Start 09/16/18 at 20:00 Acetaminophen (Tylenol Tab) 500 mg DAILY PO Last administered on 09/18/18at 08:5 8; Admin Dose 500 MG; Start 09/17/18 at 09:00 Allopurinol (Zyloprim) 100 mg DAILY PO Last administered on 09/18/18at 08:57; Admin Dose 100 MG; Start 09/17/18 at 09:00 Aripiprazole (Abilify) 5 mg DAILY PO Last administered on 09/18/18 08:57; Admin Dose 5 MG; Start 09/17/18 at 09:00 Aspirin (Halfprin) 81 mg DAILY PO Last administered on 09/18/18 08:57; Admin Dose 81 MG; Start 09/17/18 at 09:00 Atorvastatin Calcium (Lipitor) 80 mg QHS PO Last administered on 09/17/18 20:56; Admin Dose 80 MG; Start 09/16/18 at 21:00 Carvedilol (Coreg) 3.125 mg BID PO ; Start 09/16/18 at 21:00 Cyanocobalamin (Vitamin B12) 1,000 mcg DAILY PO Last administered on 09/18/18 08:57; Admin Dose 1,000 MCG; Start 09/17/18 at 09:00 Digoxin (Digoxin) 0.125 mg DAILY@1300 PO Last administered on 09/18/18 12:25; Admin Dose 0.125 MG; Start 09/17/18 at 13:00 Furosemide (Lasix) 20 mg DAILY PO Last administered on 09/18/18 08:58; Admin Dose 20 MG; Start 09/17/18 at 09:00 Glimepiride (Amaryl) 2 mg WITH BREAKFAST PO Last administered on 09/18/18 07:59; Admin Dose 2 MG; Start 09/17/18 at 07:55 Levothyroxine Sodium (Synthroid) 150 mcg BEFORE BREAKFAST PO Last administered on 09/18/18 07:59; Admin Dose 150 MCG; Start 09/17/18 at 07:00 Pantoprazole (Protonix Tab) 40 mg DAILY PO Last administered on 09/18/18 08:57; Admin Dose 40 MG; Start 09/17/18 at 09:00 Miscellaneous Information 1 ea NOTE XX ; Start 09/16/18 at 19:30 Glucose (Glutose) 15 gm Q15M PRN PO DECREASED GLUCOSE; Start 09/16/18 at 19:30 Glucose (Glutose) 22.5 gm Q15M PRN PO DECREASED GLUCOSE; Start 09/16/18 at 19:30 Dextrose (D50w Syringe) 25 ml Q15M PRN IV DECREASED GLUCOSE; Start 09/16/18 at 19:30 Dextrose (D50w Syringe) 50 ml Q15M PRN IV DECREASED GLUCOSE; Start 09/16/18 at 19:30 Glucagon (Glucagen) 1 mg Q15M PRN IM DECREASED GLUCOSE; Start 09/16/18 at 19:30 Glucose (Glutose) 15 gm Q15M PRN BUCCAL DECREASED GLUCOSE; Start 09/16/18 at 19:30 Insulin Aspart (Novolog Insulin Pen) NOVOLOG *MILD* ALGORITHM WITH MEALS BEDTIME SC Last administered on 09/18/18at 12:09; Admin Dose 1 UNIT; Start 09/17/18 at 08:30 Tamsulosin HCl (Flomax) 0.4 mg DAILY PO Last administered on 09/18/18at 08:57; Admin Dose 0.4 MG; Start 09/18/18 at 09:00 JACLYN RODRIGUEZ Sep 18, 2018 13:13
--- NOTE | 2018-09-18 13:14 | CONS ---
Assessment/Plan Assessment/Plan Assessment/Plan (Daily) 1. acute kidney injury on CKD III due to prerenal azotemia + hemodynamics 2. 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 H/o Myelodysplastic syndrome 4.H/o CAD with previous stent placement 5. H/o Ischemic Cardiomyopathy s/p AICD placement 6. H/o COPD 7. H/o DM II 8. H/o Hypothyroidism 9. 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 S/p Aortic valve replacement in 2015 11. H/o BPH Plan : continue Lasix 20mg pO daily - BUN/Cr improved to 27/1.77- may be near his baseline of Cr 1.5-1.6 Renal US showed Normal kidneys Enlarged heterogeneous prostate Avoid nephrotoxic medications, renally dose all abx Flomax 0.4 mg po daily, PSA 1.26 will follow up Consultation Date/Type/Reason Admit Date/Time Sep 16, 2018 at 14:48 Initial Consult Date 09/16/18 Type of Consult NEPHROLOGY Requesting Provider: JOS FOSTER MD Date/Time of Note DATE: 09/18/18 TIME: 13:13 24 HR Interval Summary Free Text/Dictation BUN/Cr improved to 27/1.77, BP stable Exam/Review of Systems Exam Vitals Vital Signs Date Temp Pulse Resp B/P (MAP) Pulse Ox O2 O2 Flow FiO2 Time Delivery Rate 09/18/18 97.7 55 20 91/58 (69) 98 Room Air 11:01 09/18/18 21 08:17 09/16/18 2.0 20:34 Intake and Output 09/17/18 09/17/18 09/18/18 1515:00 23:00 07:00 IntakeIntake Total 600 ml 240 ml 400 ml OutputOutput Total 1350 ml 900 ml 1225 ml BalanceBalance -750 ml -660 ml -825 ml Exam Constitutional: oriented, frail Psych: no complaints Head: normocephalic Eyes: nl conjunctiva ENMT: nl external ears & nose Neck: supple, non-tender Respiratory: clear to auscultation Cardiovascular: regular rate and rhythm Gastrointestinal: soft Musculoskeletal: nl extremities to inspection Results Result Diagram: 09/18/18 0706 09/18/18 0705 Results 24hrs Laboratory Tests Test 09/17/18 17:22 09/17/18 20:54 09/18/18 07:05 09/18/18 07:06 Bedside Glucose 92 120 Prothrombin Time 13.5 Prothrombin Time 1.1 Ratio INR International 1.02 Normalized Ratio Activated 34.0 Partial Thromboplast Time Sodium Level 138 Potassium Level 4.5 Chloride Level 103 Carbon Dioxide Level 27 Anion Gap 8 Blood Urea Nitrogen 27 H Creatinine 1.77 H Est Glomerular Filtrat Rate mL/min Glucose Level 113 # Calcium Level 10.1 Total Bilirubin 0.6 Direct Bilirubin 0.00 Indirect Bilirubin 0.6 Aspartate Amino 18 Transf (AST/SGOT) Alanine 14 Aminotransferase (AL T/SGPT) Alkaline Phosphatase 74 Total Protein 6.8 Albumin 3.8 Globulin 3.00 Albumin/Globulin 1.26 Ratio Free Thyroxine Index Pending Thyroxine (T4) Pending Triiodothyronine 35.2 (T3) Uptake White Blood Count 10.0 Red Blood Count 4.13 L Hemoglobin 11.9 L Hematocrit 37.4 L Mean Corpuscular 90.6 Volume Mean Corpuscular 28.8 L Hemoglobin Mean Corpuscular 31.8 L Hemoglobin Concent Red Cell 14.0 Distribution Width Platelet Count 205 Mean Platelet Volume 10.2 Immature 0.400 Granulocytes % Neutrophils % 78.1 H Lymphocytes % 12.9 L Monocytes % 6.7 Eosinophils % 1.6 Basophils % 0.3 Nucleated Red Blood 0.0 Cells % Immature 0.040 H Granulocytes # Neutrophils # 7.8 H Lymphocytes # 1.3 Monocytes # 0.7 Eosinophils # 0.2 Basophils # 0.0 Nucleated Red Blood 0.0 Cells # Magnesium Level 2.0 Prostate Specific 0.8 Antigen Test 09/18/18 07:58 09/18/18 12:06 Bedside Glucose 112 143 Medications Medication Current Medications Levalbuterol (Xopenex Neb) 0.63 mg Q6H RESP THERAPY HHN Last administered on 09/18/18at 08:17; Admin Dose 0.63 MG; Start 09/16/18 at 20:00 Acetaminophen (Tylenol Tab) 500 mg DAILY PO Last administered on 09/18/18at 08:58; Admin Dose 500 MG; Start 09/17/18 at 09:00 Allopurinol (Zyloprim) 100 mg DAILY PO Last administered on 09/18/18at 08:57; Admin Dose 100 MG; Start 09/17/18 at 09:00 Aripiprazole (Abilify) 5 mg DAILY PO Last administered on 09/18/18 08:57; Admin Dose 5 MG; Start 09/17/18 at 09:00 Aspirin (Halfprin) 81 mg DAILY PO Last administered on 09/18/18 08:57; Admin Dose 81 MG; Start 09/17/18 at 09:00 Atorvastatin Calcium (Lipitor) 80 mg QHS PO Last administered on 09/17/18 20:56; Admin Dose 80 MG; Start 09/16/18 at 21:00 Carvedilol (Coreg) 3.125 mg BID PO ; Start 09/16/18 at 21:00 Cyanocobalamin (Vitamin B12) 1,000 mcg DAILY PO Last administered on 09/18/18 08:57; Admin Dose 1,000 MCG; Start 09/17/18 at 09:00 Digoxin (Digoxin) 0.125 mg DAILY@1300 PO Last administered on 09/18/18 12:25; Admin Dose 0.125 MG; Start 09/17/18 at 13:00 Furosemide (Lasix) 20 mg DAILY PO Last administered on 09/18/18 08:58; Admin Dose 20 MG; Start 09/17/18 at 09:00 Glimepiride (Amaryl) 2 mg WITH BREAKFAST PO Last administered on 09/18/18 07:59; Admin Dose 2 MG; Start 09/17/18 at 07:55 Levothyroxine Sodium (Synthroid) 150 mcg BEFORE BREAKFAST PO Last administered on 09/18/18 07:59; Admin Dose 150 MCG; Start 09/17/18 at 07:00 Pantoprazole (Protonix Tab) 40 mg DAILY PO Last administered on 09/18/18 08:57; Admin Dose 40 MG; Start 09/17/18 at 09:00 Miscellaneous Information 1 ea NOTE XX ; Start 09/16/18 at 19:30 Glucose (Glutose) 15 gm Q15M PRN PO DECREASED GLUCOSE; Start 09/16/18 at 19:30 Glucose (Glutose) 22.5 gm Q15M PRN PO DECREASED GLUCOSE; Start 09/16/18 at 19:30 Dextrose (D50w Syringe) 25 ml Q15M PRN IV DECREASED GLUCOSE; Start 09/16/18 at 19:30 Dextrose (D50w Syringe) 50 ml Q15M PRN IV DECREASED GLUCOSE; Start 09/16/18 at 19:30 Glucagon (Glucagen) 1 mg Q15M PRN IM DECREASED GLUCOSE; Start 09/16/18 at 19:30 Glucose (Glutose) 15 gm Q15M PRN BUCCAL DECREASED GLUCOSE; Start 09/16/18 at 19:30 Insulin Aspart (Novolog Insulin Pen) NOVOLOG *MILD* ALGORITHM WITH MEALS BEDTIME SC Last administered on 09/18/18at 12:09; Admin Dose 1 UNIT; Start 09/17/18 at 08:30 Tamsulosin HCl (Flomax) 0.4 mg DAILY PO Last administered on 09/18/18at 08:57; Admin Dose 0.4 MG; Start 09/18/18 at 09:00 MIHAI JOSEPH MD Sep 18, 2018 13:13
--- NOTE | 2018-09-18 13:44 | PN ---
Date/Time of Note Date/Time of Note DATE: 09/18/18 TIME: 13:39 Assessment/Plan VTE Prophylaxis Risk score (from Ns)>0 risk: 4 SCD applied (from Ns): Yes Pharmacological prophylaxis: other Lines/Catheters IV Catheter Type (from Nrs): Peripheral IV Urinary Cath still in place: No Assessment/Plan Hospital Course Patient is awake alert, able to work with PT using a front wheel walker currently feels tired borderline blood pressure, ventricular paced with occasional PVCs with heart rate in the 50s range. Continue telemetry monitoring, monitor renal function. Assessment/Plan -Dizziness, hypotension. Telemetry monitoring. Continue digoxin and Coreg, cardiac enzymes negative x3. -Ischemic cardiomyopathy with ejection fraction of 25%. Dr. Choudhury is followi shalom in in cardiology consultation. -Acute kidney injury on chronic kidney disease stage III, continue to monitor BUN and creatinine. Dr. Novak is following in nephrology consultation -Hx of ICD placement for symptomatic bradycardia. -Coronary artery disease with history of stent placement. Continue aspirin. -Status post transcatheter aortic valve replacement in 2016. -Chronic obstructive pulmonary disease. 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 Plan of care discussed with Dr. Giron. Result Diagram: 09/18/18 0706 09/18/18 0705 Results 24hrs Laboratory Tests Test 09/17/18 17:22 09/17/18 20:54 09/18/18 07:05 09/18/18 07:06 Bedside Glucose 92 120 Prothrombin Time 13.5 Prothrombin Time 1.1 Ratio INR International 1.02 Normalized Ratio Activated 34.0 Partial Thromboplast Time Sodium Level 138 Potassium Level 4.5 Chloride Level 103 Carbon Dioxide Level 27 Anion Gap 8 Blood Urea Nitrogen 27 H Creatinine 1.77 H Est Glomerular Filtrat Rate mL/min Glucose Level 113 # Calcium Level 10.1 Total Bilirubin 0.6 Direct Bilirubin 0.00 Indirect Bilirubin 0.6 Aspartate Amino 18 Transf (AST/SGOT) Alanine 14 Aminotransferase (AL T/SGPT) Alkaline Phosphatase 74 Total Protein 6.8 Albumin 3.8 Globulin 3.00 Albumin/Globulin 1.26 Ratio Free Thyroxine Index Pending Thyroxine (T4) Pending Triiodothyronine 35.2 (T3) Uptake White Blood Count 10.0 Red Blood Count 4.13 L Hemoglobin 11.9 L Hematocrit 37.4 L Mean Corpuscular 90.6 Volume Mean Corpuscular 28.8 L Hemoglobin Mean Corpuscular 31.8 L Hemoglobin Concent Red Cell 14.0 Distribution Width Platelet Count 205 Mean Platelet Volume 10.2 Immature 0.400 Granulocytes % Neutrophils % 78.1 H Lymphocytes % 12.9 L Monocytes % 6.7 Eosinophils % 1.6 Basophils % 0.3 Nucleated Red Blood 0.0 Cells % Immature 0.040 H Granulocytes # Neutrophils # 7.8 H Lymphocytes # 1.3 Monocytes # 0.7 Eosinophils # 0.2 Basophils # 0.0 Nucleated Red Blood 0.0 Cells # Magnesium Level 2.0 Prostate Specific 0.8 Antigen Test 09/18/18 07:58 09/18/18 12:06 Bedside Glucose 112 143 Exam/Review of Systems Exam Vitals Vital Signs Date Temp Pulse Resp B/P (MAP) Pulse Ox O2 O2 Flow FiO2 Time Delivery Rate 09/18/18 97.7 55 20 91/58 (69) 98 Room Air 11:01 09/18/18 21 08:17 09/16/18 2.0 20:34 Intake and Output 09/17/18 09/17/18 09/18/18 1515:00 23:00 07:00 IntakeIntake Total 600 ml 240 ml 400 ml OutputOutput Total 1350 ml 900 ml 1225 ml BalanceBalance -750 ml -660 ml -825 ml Exam Constitutional: alert, oriented Respiratory: clear to auscultation Cardiovascular: regular rate and rhythm, other (Left chest ICD) Gastrointestinal: soft, non-tender Musculoskeletal: nl extremities to inspection Extremities: normal pulses Neurological: nl mental status Skin: nl turgor Results Results 24hrs Laboratory Tests Test 09/17/18 17:22 09/17/18 20:54 09/18/18 07:05 09/18/18 07:06 Bedside Glucose 92 120 Prothrombin Time 13.5 Prothrombin Time 1.1 Ratio INR International 1.02 Normalized Ratio Activated 34.0 Partial Thromboplast Time Sodium Level 138 Potassium Level 4.5 Chloride Level 103 Carbon Dioxide Level 27 Anion Gap 8 Blood Urea Nitrogen 27 H Creatinine 1.77 H Est Glomerular Filtrat Rate mL/min Glucose Level 113 # Calcium Level 10.1 Total Bilirubin 0.6 Direct Bilirubin 0.00 Indirect Bilirubin 0.6 Aspartate Amino 18 Transf (AST/SGOT) Alanine 14 Aminotransferase (AL T/SGPT) Alkaline Phosphatase 74 Total Protein 6.8 Albumin 3.8 Globulin 3.00 Albumin/Globulin 1.26 Ratio Free Thyroxine Index Pending Thyroxine (T4) Pending Triiodothyronine 35.2 (T3) Uptake White Blood Count 10.0 Red Blood Count 4.13 L Hemoglobin 11.9 L Hematocrit 37.4 L Mean Corpuscular 90.6 Volume Mean Corpuscular 28.8 L Hemoglobin Mean Corpuscular 31.8 L Hemoglobin Concent Red Cell 14.0 Distribution Width Platelet Count 205 Mean Platelet Volume 10.2 Immature 0.400 Granulocytes % Neutrophils % 78.1 H Lymphocytes % 12.9 L Monocytes % 6.7 Eosinophils % 1.6 Basophils % 0.3 Nucleated Red Blood 0.0 Cells % Immature 0.040 H Granulocytes # Neutrophils # 7.8 H Lymphocytes # 1.3 Monocytes # 0.7 Eosinophils # 0.2 Basophils # 0.0 Nucleated Red Blood 0.0 Cells # Magnesium Level 2.0 Prostate Specific 0.8 Antigen Test 09/18/18 07:58 09/18/18 12:06 Bedside Glucose 112 143 Medications Medication Current Medications Levalbuterol (Xopenex Neb) 0.63 mg Q6H RESP THERAPY HHN Last administered on 09/18/18 08:17; Admin Dose 0.63 MG; Start 09/16/18 at 20:00 Acetaminophen (Tylenol Tab) 500 mg DAILY PO Last administered on 09/18/18at 08:58; Admin Dose 500 MG; Start 09/17/18 at 09:00 Allopurinol (Zyloprim) 100 mg DAILY PO Last administered on 09/18/18 08:57; Admin Dose 100 MG; Start 09/17/18 at 09:00 Aripiprazole (Abilify) 5 mg DAILY PO Last administered on 09/18/18 08:57; Admin Dose 5 MG; Start 09/17/18 at 09:00 Aspirin (Halfprin) 81 mg DAILY PO Last administered on 09/18/18 08:57; Admin Dose 81 MG; Start 09/17/18 at 09:00 Atorvastatin Calcium (Lipitor) 80 mg QHS PO Last administered on 09/17/18at 20:56; Admin Dose 80 MG; Start 09/16/18 at 21:00 Carvedilol (Coreg) 3.125 mg BID PO ; Start 09/16/18 at 21:00 Cyanocobalamin (Vitamin B12) 1,000 mcg DAILY PO Last administered on 09/18/18 08:57; Admin Dose 1,000 MCG; Start 09/17/18 at 09:00 Digoxin (Digoxin) 0.125 mg DAILY@1300 PO Last administered on 09/18/18 12:25; Admin Dose 0.125 MG; Start 09/17/18 at 13:00 Glimepiride (Amaryl) 2 mg WITH BREAKFAST PO Last administered on 09/18/18 07:59; Admin Dose 2 MG; Start 09/17/18 at 07:55 Levothyroxine Sodium (Synthroid) 150 mcg BEFORE BREAKFAST PO Last administered on 09/18/18 07:59; Admin Dose 150 MCG; Start 09/17/18 at 07:00 Pantoprazole (Protonix Tab) 40 mg DAILY PO Last administered on 09/18/18 08:57; Admin Dose 40 MG; Start 09/17/18 at 09:00 Miscellaneous Information 1 ea NOTE XX ; Start 09/16/18 at 19:30 Glucose (Glutose) 15 gm Q15M PRN PO DECREASED GLUCOSE; Start 09/16/18 at 19:30 Glucose (Glutose) 22.5 gm Q15M PRN PO DECREASED GLUCOSE; Start 09/16/18 at 19:30 Dextrose (D50w Syringe) 25 ml Q15M PRN IV DECREASED GLUCOSE; Start 09/16/18 at 19:30 Dextrose (D50w Syringe) 50 ml Q15M PRN IV DECREASED GLUCOSE; Start 09/16/18 at 19:30 Glucagon (Glucagen) 1 mg Q15M PRN IM DECREASED GLUCOSE; Start 09/16/18 at 19:30 Glucose (Glutose) 15 gm Q15M PRN BUCCAL DECREASED GLUCOSE; Start 09/16/18 at 19:30 Insulin Aspart (Novolog Insulin Pen) NOVOLOG *MILD* ALGORITHM WITH MEALS BEDTIME SC Last administered on 09/18/18 12:09; Admin Dose 1 UNIT; Start 09/17/18 at 08:30 Tamsulosin HCl (Flomax) 0.4 mg DAILY PO Last administered on 09/18/18 08:57; Admin Dose 0.4 MG; Start 09/18/18 at 09:00 Furosemide (Lasix) 20 mg BID DIURETICS IV ; Start 09/18/18 at 18:00 Hydralazine HCl (Apresoline) 10 mg Q8 PO ; Start 09/18/18 at 14:00 SELMA ELMORE Sep 18, 2018 13:44
[2018-09-18 15:16] VITALS: BP 115/70; PULSE 55; RESP 20
[2018-09-18] MEDS: FUROSEMIDE 20 MG INJ IV SCH (17:42)
[2018-09-18 19:40] VITALS: BP 110/57; PULSE 58
[2018-09-18] MEDS: ATORVASTATIN 80 MG TAB PO SCH (21:03)
[2018-09-19] VITALS (7 sets, daily range): BP systolic 92–116; BP diastolic 53–58; PULSE 57–79; RESP 18–20
[2018-09-19] MEDS: LEVALBUTEROL (NEB) 0.63 MG/3 ML AMP HHN SCH ×4 (02:16→19:48)
[2018-09-19] MEDS: LEVOTHYROXINE 150 MCG TAB PO SCH (06:50)
[2018-09-19] MEDS: FUROSEMIDE 20 MG INJ IV SCH ×2 (06:50→17:16)
[2018-09-19] MEDS: GLIMEPIRIDE 2 MG TAB PO SCH (07:51)
[2018-09-19] MEDS: INSULIN ASPART [NOVOLOG] 3 ML PEN SC SCH ×4 (07:53→20:39)
[2018-09-19] MEDS: ALLOPURINOL 100 MG TAB PO SCH (09:45)
[2018-09-19] MEDS: TAMSULOSIN (SR) 0.4 MG CAP PO SCH (09:45)
[2018-09-19] MEDS: ARIPIPRAZOLE 5 MG TAB PO SCH (09:45)
[2018-09-19] MEDS: PANTOPRAZOLE (EC) 40 MG TAB PO SCH (09:47)
[2018-09-19] MEDS: ACETAMINOPHEN 500 MG TAB PO SCH (09:47)
[2018-09-19] MEDS: ASPIRIN (EC) 81 MG TAB PO SCH (09:47)
[2018-09-19] MEDS: CYANOCOBALAMIN 500 MCG TAB PO SCH (09:47)
--- NOTE | 2018-09-19 10:51 | CONS ---
Assessment/Plan Assessment/Plan Assessment/Plan (Daily) 1. acute kidney injury on CKD III due to prerenal azotemia + hemodynamics 2. 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 H/o Myelodysplastic syndrome 4.H/o CAD with previous stent placement 5. H/o Ischemic Cardiomyopathy s/p AICD placement 6. H/o COPD 7. H/o DM II 8. H/o Hypothyroidism 9. 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 S/p Aortic valve replacement in 2015 11. H/o BPH Plan : continue Lasix 20mg pO daily - BUN/Cr improved to 32/1.7 near his baseline of Cr 1.5-1.6 Renal US showed Normal kidneys Enlarged heterogeneous prostate Avoid nephrotoxic medications, renally dose all abx Flomax 0.4 mg po daily, PSA 1.26 will follow up Consultation Date/Type/Reason Admit Date/Time Sep 18, 2018 at 13:39 Initial Consult Date 09/16/18 Type of Consult NEPHROLOGY Requesting Provider: JOS FOSTER MD Date/Time of Note DATE: 09/19/18 TIME: 10:51 Exam/Review of Systems Exam Vitals Vital Signs Date Temp Pulse Resp B/P (MAP) Pulse Ox O2 O2 Flow FiO2 Time Delivery Rate 09/19/18 98.2 10:32 09/19/18 68 12 98 21 07:38 09/19/18 92/54 (67) 07:22 09/18/18 Room Air 19:40 09/16/18 2.0 20:34 Intake and Output 09/18/18 09/18/18 09/19/18 1414:59 22:59 06:59 IntakeIntake Total 240 ml 240 ml OutputOutput Total 750 ml 1550 ml BalanceBalance -510 ml -1310 ml Exam Constitutional: oriented, frail ENMT: nl external ears & nose Neck: supple, non-tender Respiratory: clear to auscultation Cardiovascular: regular rate and rhythm Gastrointestinal: soft Musculoskeletal: nl extremities to inspection Results Result Diagram: 09/18/18 0706 09/19/18 0547 Results 24hrs Laboratory Tests Test 09/18/18 12:06 09/18/18 17:41 09/18/18 21:05 09/19/18 05:47 Bedside Glucose 143 89 110 Sodium Level 139 Potassium Level 4.3 Chloride Level 101 Carbon Dioxide Level 28 Anion Gap 10 Blood Urea Nitrogen 32 H Creatinine 1.74 H Est Glomerular Filtrat Rate mL/min Glucose Level 120 Calcium Level 10.1 Test 09/19/18 07:52 Bedside Glucose 138 Medications Medication Current Medications Levalbuterol (Xopenex Neb) 0.63 mg Q6H RESP THERAPY HHN Last administered on 09/19/18 07:38; Admin Dose 0.63 MG; Start 09/16/18 at 20:00 Acetaminophen (Tylenol Tab) 500 mg DAILY PO Last administered on 09/19/18 09:47; Admin Dose 500 MG; Start 09/17/18 at 09:00 Allopurinol (Zyloprim) 100 mg DAILY PO Last administered on 09/19/18 09:45; Admin Dose 100 MG; Start 09/17/18 at 09:00 Aripiprazole (Abilify) 5 mg DAILY PO Last administered on 09/19/18 09:45; Admin Dose 5 MG; Start 09/17/18 at 09:00 Aspirin (Halfprin) 81 mg DAILY PO Last administered on 09/19/18 09:47; Admin Dose 81 MG; Start 09/17/18 at 09:00 Atorvastatin Calcium (Lipitor) 80 mg QHS PO Last administered on 09/18/18 21:03; Admin Dose 80 MG; Start 09/16/18 at 21:00 Carvedilol (Coreg) 3.125 mg BID PO Last administered on 09/18/18 21:03; Admin Dose 3.125 MG; Start 09/16/18 at 21:00 Cyanocobalamin (Vitamin B12) 1,000 mcg DAILY PO Last administered on 09/19/18 09:47; Admin Dose 1,000 MCG; Start 09/17/18 at 09:00 Digoxin (Digoxin) 0.125 mg DAILY@1300 PO Last administered on 09/18/18 12:25; Admin Dose 0.125 MG; Start 09/17/18 at 13:00 Glimepiride (Amaryl) 2 mg WITH BREAKFAST PO Last administered on 09/19/18 07:51; Admin Dose 2 MG; Start 09/17/18 at 07:55 Levothyroxine Sodium (Synthroid) 150 mcg BEFORE BREAKFAST PO Last administered on 09/19/18 06:50; Admin Dose 150 MCG; Start 09/17/18 at 07:00 Pantoprazole (Protonix Tab) 40 mg DAILY PO Last administered on 09/19/18at 09:47; Admin Dose 40 MG; Start 09/17/18 at 09:00 Miscellaneous Information 1 ea NOTE XX ; Start 09/16/18 at 19:30 Glucose (Glutose) 15 gm Q15M PRN PO DECREASED GLUCOSE; Start 09/16/18 at 19:30 Glucose (Glutose) 22.5 gm Q15M PRN PO DECREASED GLUCOSE; Start 09/16/18 at 19:30 Dextrose (D50w Syringe) 25 ml Q15M PRN IV DECREASED GLUCOSE; Start 09/16/18 at 19:30 Dextrose (D50w Syringe) 50 ml Q15M PRN IV DECREASED GLUCOSE; Start 09/16/18 at 19:30 Glucagon (Glucagen) 1 mg Q15M PRN IM DECREASED GLUCOSE; Start 09/16/18 at 19:30 Glucose (Glutose) 15 gm Q15M PRN BUCCAL DECREASED GLUCOSE; Start 09/16/18 at 19:30 Insulin Aspart (Novolog Insulin Pen) NOVOLOG *MILD* ALGORITHM WITH MEALS BEDTIME SC Last administered on 09/18/18at 12:09; Admin Dose 1 UNIT; Start 09/17/18 at 08:30 Tamsulosin HCl (Flomax) 0.4 mg DAILY PO Last administered on 09/19/18at 09:45; Admin Dose 0.4 MG; Start 09/18/18 at 09:00 Furosemide (Lasix) 20 mg BID DIURETICS IV Last administered on 09/19/18at 06:50; Admin Dose 20 MG; Start 09/18/18 at 18:00 Hydralazine HCl (Apresoline) 10 mg Q8 PO Last administered on 09/18/18at 21:09; Admin Dose 10 MG; Start 09/18/18 at 14:00 MIHAI JOSEPH MD Sep 19, 2018 10:51
[2018-09-19] MEDS: DIGOXIN 0.125 MG TAB PO SCH (12:37)
--- NOTE | 2018-09-19 13:06 | CONS ---
Assessment/Plan Assessment/Plan Hospital Course (Demo Recall) IMP: 1.CHF-systolic acute on chronic 2. Cardiomyopathy-EF 25% by echo 02/12 3.HTN 4.H/O ICD 5.h/o cad s/p prior stent-Neg lexiscan for ischemia 04/15 6.copd 7.SOB 8.Renal failure Recc: -Tele -serial ecg's -Contineu coreg as tolerated -Contineu asa -start low dose hydralazine afterload reduction as tolerated in lieu of ACEI given renal failure -Contineu lasix diuresis Consultation Date/Type/Reason Admit Date/Time Sep 18, 2018 at 13:39 Initial Consult Date 09/16/18 Type of Consult Cardiology Reason for Consultation CHF Requesting Provider: JOS FOSTER MD Date/Time of Note DATE: 09/19/18 TIME: 13:04 Exam/Review of Systems Vital Signs Vitals Vital Signs Date Temp Pulse Resp B/P (MAP) Pulse Ox O2 O2 Flow FiO2 Time Delivery Rate 09/19/18 98.1 79 18 94/55 (68) 94 11:03 09/19/18 21 07:38 09/18/18 Room Air 19:40 09/16/18 2.0 20:34 Intake and Output 09/18/18 09/18/18 09/19/18 1414:59 22:59 06:59 IntakeIntake Total 240 ml 240 ml OutputOutput Total 750 ml 1550 ml BalanceBalance -510 ml -1310 ml Exam Exam Review of Systems: CONSTITUTIONAL: No fevers, chills. PULMONARY: No sob CARDIOVASCULAR: No chest pain/palpitations GASTROINTESTINAL: No nausea/vomiting. GENITOURINARY: No hematuria/dysuria. MUSCULOSKELETAL: No myagias/arthalgias. PSYCHIATRIC: The patient denies depression. NEUROLOGIC: No weakness Constitutional: alert Psych: no complaints Head: normocephalic ENMT: mucosa pink and moist Neck: supple, jvd (9 cm water) Respiratory: diminished breath sounds (at bases/B) Cardiovascular: regular rate and rhythm Gastrointestinal: soft, non-tender Musculoskeletal: muscle weakness (mild generalized) Extremities: edema (tyace/B) Neurological: other (No focal deficits) Labs Result Diagram: 09/18/18 0706 09/19/18 0547 Results 24hrs Laboratory Tests Test 09/18/18 17:41 09/18/18 21:05 09/19/18 05:47 09/19/18 07:52 Bedside Glucose 89 110 138 Sodium Level 139 Potassium Level 4.3 Chloride Level 101 Carbon Dioxide 28 Level Anion Gap 10 Blood Urea 32 H Nitrogen Creatinine 1.74 H Est Glomerular Filtrat Rate mL/min Glucose Level 120 Calcium Level 10.1 Test 09/19/18 11:49 09/19/18 12:59 Bedside Glucose 181 Lab Scanned Report REFERENCE LAB Medications Medications Current Medications Levalbuterol (Xopenex Neb) 0.63 mg Q6H RESP THERAPY HHN Last administered on 09/19/18 07:38; Admin Dose 0.63 MG; Start 09/16/18 at 20:00 Acetaminophen (Tylenol Tab) 500 mg DAILY PO Last administered on 09/19/18 09:47; Admin Dose 500 MG; Start 09/17/18 at 09:00 Allopurinol (Zyloprim) 100 mg DAILY PO Last administered on 09/19/18 09:45; Admin Dose 100 MG; Start 09/17/18 at 09:00 Aripiprazole (Abilify) 5 mg DAILY PO Last administered on 09/19/18 09:45; Admin Dose 5 MG; Start 09/17/18 at 09:00 Aspirin (Halfprin) 81 mg DAILY PO Last administered on 09/19/18 09:47; Admin Dose 81 MG; Start 09/17/18 at 09:00 Atorvastatin Calcium (Lipitor) 80 mg QHS PO Last administered on 09/18/18 21:03; Admin Dose 80 MG; Start 09/16/18 at 21:00 Carvedilol (Coreg) 3.125 mg BID PO Last administered on 09/18/18 21:03; Admin Dose 3.125 MG; Start 09/16/18 at 21:00 Cyanocobalamin (Vitamin B12) 1,000 mcg DAILY PO Last administered on 09/19/18 09:47; Admin Dose 1,000 MCG; Start 09/17/18 at 09:00 Digoxin (Digoxin) 0.125 mg DAILY@1300 PO Last administered on 09/19/18 12:37; Admin Dose 0.125 MG; Start 09/17/18 at 13:00 Glimepiride (Amaryl) 2 mg WITH BREAKFAST PO Last administered on 09/19/18 07:51; Admin Dose 2 MG; Start 09/17/18 at 07:55 Levothyroxine Sodium (Synthroid) 150 mcg BEFORE BREAKFAST PO Last administered on 09/19/18 06:50; Admin Dose 150 MCG; Start 09/17/18 at 07:00 Pantoprazole (Protonix Tab) 40 mg DAILY PO Last administered on 09/19/18 09:47; Admin Dose 40 MG; Start 09/17/18 at 09:00 Miscellaneous Information 1 ea NOTE XX ; Start 09/16/18 at 19:30 Glucose (Glutose) 15 gm Q15M PRN PO DECREASED GLUCOSE; Start 09/16/18 at 19:30 Glucose (Glutose) 22.5 gm Q15M PRN PO DECREASED GLUCOSE; Start 09/16/18 at 19:30 Dextrose (D50w Syringe) 25 ml Q15M PRN IV DECREASED GLUCOSE; Start 09/16/18 at 19:30 Dextrose (D50w Syringe) 50 ml Q15M PRN IV DECREASED GLUCOSE; Start 09/16/18 at 19:30 Glucagon (Glucagen) 1 mg Q15M PRN IM DECREASED GLUCOSE; Start 09/16/18 at 19:30 Glucose (Glutose) 15 gm Q15M PRN BUCCAL DECREASED GLUCOSE; Start 09/16/18 at 19:30 Insulin Aspart (Novolog Insulin Pen) NOVOLOG *MILD* ALGORITHM WITH MEALS BEDTIME SC Last administered on 09/19/18 12:06; Admin Dose 2 UNIT; Start 09/17/18 at 08:30 Tamsulosin HCl (Flomax) 0.4 mg DAILY PO Last administered on 09/19/18 09:45; Admin Dose 0.4 MG; Start 09/18/18 at 09:00 Furosemide (Lasix) 20 mg BID DIURETICS IV Last administered on 09/19/18 06:50; Admin Dose 20 MG; Start 09/18/18 at 18:00 Hydralazine HCl (Apresoline) 10 mg Q8 PO Last administered on 09/18/18 21:09; Admin Dose 10 MG; Start 09/18/18 at 14:00 JACLYN RODRIGUEZ Sep 19, 2018 13:06
--- NOTE | 2018-09-19 15:28 | PN ---
Date/Time of Note Date/Time of Note DATE: 09/19/18 TIME: 15:19 Assessment/Plan VTE Prophylaxis Risk score (from Ns)>0 risk: 6 SCD applied (from Ns): Yes Pharmacological prophylaxis: NA/contraindicated Pharm contraindication: anticoag not tolerated Lines/Catheters [facility] Peripheral IV Urinary Cath still in place: No Assessment/Plan Hospital Course Patient is awake alert. Generalized weakens, continue physical therapy, continue telemetry monitoring. Levothyroxine dose is being adjusted. Assessment/Plan -Dizziness, hypotension. Telemetry monitoring. Continue digoxin and Coreg, cardiac enzymes are negative x3. -Ischemic cardiomyopathy with ejection fraction of 25%. Dr. Choudhury is following in in cardiology consultation. -Acute kidney injury on chronic kidney disease stage III, continue to monitor BUN and creatinine. Dr. Novak is following in nephrology consultation -Hx of ICD placement for symptomatic bradycardia. -Coronary artery disease with history of stent placement. Continue aspirin. -Status post transcatheter aortic valve replacement in 2015. -Chronic obstructive pulmonary disease. -Diabetes mellitus -Hypothyroidism, continue levothyroxine at 125 mcg daily. -Hx of Chronic right EMT territory infarct Further recommendations based on clinical course. Plan of care discussed with Dr. Giron. Result Diagram: 09/18/18 0706 09/19/18 0547 Results 24hrs Laboratory Tests Test 09/18/18 17:41 09/18/18 21:05 09/19/18 05:47 09/19/18 07:52 Bedside Glucose 89 110 138 Sodium Level 139 Potassium Level 4.3 Chloride Level 101 Carbon Dioxide 28 Level Anion Gap 10 Blood Urea 32 H Nitrogen Creatinine 1.74 H Est Glomerular Filtrat Rate mL/min Glucose Level 120 Calcium Level 10.1 Test 09/19/18 11:49 09/19/18 12:59 Bedside Glucose 181 Lab Scanned Report REFERENCE LAB Exam/Review of Systems Exam Vitals Vital Signs Date Temp Pulse Resp B/P (MAP) Pulse Ox O2 O2 Flow FiO2 Time Delivery Rate 09/19/18 97.6 79 18 104/58 96 15:11 (73) 09/19/18 21 13:26 09/18/18 Room Air 19:40 09/16/18 2.0 20:34 Intake and Output 09/18/18 09/18/18 09/19/18 1515:00 23:00 07:00 IntakeIntake Total 240 ml 240 ml OutputOutput Total 750 ml 1550 ml BalanceBalance -510 ml -1310 ml Exam Constitutional: alert, oriented Respiratory: clear to auscultation Cardiovascular: regular rate and rhythm, other (Left chest ICD) Gastrointestinal: soft, non-tender Musculoskeletal: nl extremities to inspection Extremities: normal pulses Neurological: nl mental status Skin: nl turgor Results Results 24hrs Laboratory Tests Test 09/18/18 17:41 09/18/18 21:05 09/19/18 05:47 09/19/18 07:52 Bedside Glucose 89 110 138 Sodium Level 139 Potassium Level 4.3 Chloride Level 101 Carbon Dioxide 28 Level Anion Gap 10 Blood Urea 32 H Nitrogen Creatinine 1.74 H Est Glomerular Filtrat Rate mL/min Glucose Level 120 Calcium Level 10.1 Test 09/19/18 11:49 09/19/18 12:59 Bedside Glucose 181 Lab Scanned Report REFERENCE LAB Medications Medication Current Medications Levalbuterol (Xopenex Neb) 0.63 mg Q6H RESP THERAPY HHN Last administered on 09/19/18 13:25; Admin Dose 0.63 MG; Start 09/16/18 at 20:00 Acetaminophen (Tylenol Tab) 500 mg DAILY PO Last administered on 09/19/18 09:47; Admin Dose 500 MG; Start 09/17/18 at 09:00 Allopurinol (Zyloprim) 100 mg DAILY PO Last administered on 09/19/18 09:45; Admin Dose 100 MG; Start 09/17/18 at 09:00 Aripiprazole (Abilify) 5 mg DAILY PO Last administered on 09/19/18 09:45; Admin Dose 5 MG; Start 09/17/18 at 09:00 Aspirin (Halfprin) 81 mg DAILY PO Last administered on 09/19/18 09:47; Admin Dose 81 MG; Start 09/17/18 at 09:00 Atorvastatin Calcium (Lipitor) 80 mg QHS PO Last administered on 09/18/18 21:03; Admin Dose 80 MG; Start 09/16/18 at 21:00 Carvedilol (Coreg) 3.125 mg BID PO Last administered on 09/18/18 21:03; Admin Dose 3.125 MG; Start 09/16/18 at 21:00 Cyanocobalamin (Vitamin B12) 1,000 mcg DAILY PO Last administered on 09/19/18 09:47; Admin Dose 1,000 MCG; Start 09/17/18 at 09:00 Glimepiride (Amaryl) 2 mg WITH BREAKFAST PO Last administered on 09/19/18 07:51; Admin Dose 2 MG; Start 09/17/18 at 07:55 Levothyroxine Sodium (Synthroid) 150 mcg BEFORE BREAKFAST PO Last administered on 09/19/18 06:50; Admin Dose 150 MCG; Start 09/17/18 at 07:00 Pantoprazole (Protonix Tab) 40 mg DAILY PO Last administered on 09/19/18 09:47; Admin Dose 40 MG; Start 09/17/18 at 09:00 Miscellaneous Information 1 ea NOTE XX ; Start 09/16/18 at 19:30 Glucose (Glutose) 15 gm Q15M PRN PO DECREASED GLUCOSE; Start 09/16/18 at 19:30 Glucose (Glutose) 22.5 gm Q15M PRN PO DECREASED GLUCOSE; Start 09/16/18 at 19:30 Dextrose (D50w Syringe) 25 ml Q15M PRN IV DECREASED GLUCOSE; Start 09/16/18 at 19:30 Dextrose (D50w Syringe) 50 ml Q15M PRN IV DECREASED GLUCOSE; Start 09/16/18 at 19:30 Glucagon (Glucagen) 1 mg Q15M PRN IM DECREASED GLUCOSE; Start 09/16/18 at 19:30 Glucose (Glutose) 15 gm Q15M PRN BUCCAL DECREASED GLUCOSE; Start 09/16/18 at 19:30 Insulin Aspart (Novolog Insulin Pen) NOVOLOG *MILD* ALGORITHM WITH MEALS BEDTIME SC Last administered on 09/19/18 12:06; Admin Dose 2 UNIT; Start 09/17/18 at 08:30 Tamsulosin HCl (Flomax) 0.4 mg DAILY PO Last administered on 09/19/18 09:45; Admin Dose 0.4 MG; Start 09/18/18 at 09:00 Furosemide (Lasix) 20 mg BID DIURETICS IV Last administered on 09/19/18 06:50; Admin Dose 20 MG; Start 09/18/18 at 18:00 Hydralazine HCl (Apresoline) 10 mg Q8 PO Last administered on 7/24/19at 21:09; Admin Dose 10 MG; Start 09/18/18 at 14:00 SELMA ELMORE Sep 19, 2018 15:28
[2018-09-19] MEDS: ATORVASTATIN 80 MG TAB PO SCH (20:35)
[2018-09-20] MEDS: LEVALBUTEROL (NEB) 0.63 MG/3 ML AMP HHN SCH ×4 (01:14→21:18)
[2018-09-20 04:42] VITALS: BP 106/50; PULSE 67; RESP 20
[2018-09-20] MEDS: FUROSEMIDE 20 MG INJ IV SCH ×2 (05:06→17:28)
[2018-09-20] MEDS: LEVOTHYROXINE 125 MCG TAB PO SCH (05:06)
[2018-09-20 07:31] VITALS: BP 97/61; PULSE 60; RESP 18
[2018-09-20] MEDS: GLIMEPIRIDE 2 MG TAB PO SCH (07:55)
[2018-09-20] MEDS: INSULIN ASPART [NOVOLOG] 3 ML PEN SC SCH ×4 (07:55→20:33)
--- NOTE | 2018-09-20 08:42 | CONS ---
Assessment/Plan Assessment/Plan Assessment/Plan (Daily) 1. acute kidney injury on CKD III due to prerenal azotemia + hemodynamics 2. -Hx of Chronic right EXPLOSIVE SPECIALIST territory infarct 3. H/o Myelodysplastic syndrome 4.H/o CAD with previous stent placement 5. H/o Ischemic Cardiomyopathy s/p AICD placement 6. H/o COPD 7. H/o DM II 8. H/o Hypothyroidism 9. 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 S/p Aortic valve replacement in 2015 11. H/o BPH Plan : continue Lasix 20mg pO daily - BUN/Cr went upto 42/2.05- will give IVF NS at 75 cc/hr x 2 liter then stop Renal US showed Normal kidneys Enlarged heterogeneous prostate Avoid nephrotoxic medications, renally dose all abx Flomax 0.4 mg po daily, PSA 1.26 will follow up Consultation Date/Type/Reason Admit Date/Time Sep 18, 2018 at 13:39 Initial Consult Date 09/16/18 Type of Consult NEPHROLOGY Requesting Provider: JOS FOSTER MD Date/Time of Note DATE: 09/20/18 TIME: 08:42 Exam/Review of Systems Exam Vitals Vital Signs Date Temp Pulse Resp B/P (MAP) Pulse Ox O2 O2 Flow FiO2 Time Delivery Rate 09/20/18 58 16 96 21 08:19 09/20/18 97.8 97/61 (73) Room Air 07:31 09/16/18 2.0 20:34 Intake and Output 09/19/18 09/19/18 09/20/18 1515:00 23:00 07:00 IntakeIntake Total 1320 ml 360 ml 540 ml OutputOutput Total 1050 ml 1000 ml 900 ml BalanceBalance 270 ml -640 ml -360 ml Exam Constitutional: oriented, frail ENMT: nl external ears & nose Neck: supple, non-tender Respiratory: clear to auscultation Cardiovascular: regular rate and rhythm Gastrointestinal: soft Musculoskeletal: nl extremities to inspection Results Result Diagram: 09/20/18 0558 09/20/18 0558 Results 24hrs Laboratory Tests Test 09/19/18 11:49 09/19/18 12:59 09/19/18 17:11 09/19/18 20:38 Bedside Glucose 181 104 132 Lab Scanned Report REFERENCE LAB Test 09/20/18 05:58 09/20/18 07:58 White Blood Count 9.4 Red Blood Count 4.26 L Hemoglobin 12.3 L Hematocrit 38.0 L Mean Corpuscular 89.2 Volume Mean Corpuscular 28.9 L Hemoglobin Mean Corpuscular 32.4 Hemoglobin Concent Red Cell 14.1 Distribution Width Platelet Count 218 Mean Platelet 10.3 Volume Immature 0.400 Granulocytes % Neutrophils % 75.2 Lymphocytes % 15.5 Monocytes % 7.0 Eosinophils % 1.6 Basophils % 0.3 Nucleated Red 0.0 Blood Cells % Immature 0.040 H Granulocytes # Neutrophils # 7.0 Lymphocytes # 1.5 Monocytes # 0.7 Eosinophils # 0.2 Basophils # 0.0 Nucleated Red 0.0 Blood Cells # Sodium Level 138 Potassium Level 4.4 Chloride Level 99 Carbon Dioxide 28 Level Anion Gap 11 Blood Urea 42 H Nitrogen Creatinine 2.05 H Est Glomerular Filtrat Rate mL/min Glucose Level 120 Calcium Level 10.1 Bedside Glucose 130 Medications Medication Current Medications Levalbuterol (Xopenex Neb) 0.63 mg Q6H RESP THERAPY HHN Last administered on 09/20/18 08:21; Admin Dose 0.63 MG; Start 09/16/18 at 20:00 Acetaminophen (Tylenol Tab) 500 mg DAILY PO Last administered on 09/19/18 09:47; Admin Dose 500 MG; Start 09/17/18 at 09:00 Allopurinol (Zyloprim) 100 mg DAILY PO Last administered on 09/19/18 09:45; Admin Dose 100 MG; Start 09/17/18 at 09:00 Aripiprazole (Abilify) 5 mg DAILY PO Last administered on 09/19/18 09:45; Admin Dose 5 MG; Start 09/17/18 at 09:00 Aspirin (Halfprin) 81 mg DAILY PO Last administered on 09/19/18 09:47; Admin Dose 81 MG; Start 09/17/18 at 09:00 Atorvastatin Calcium (Lipitor) 80 mg QHS PO Last administered on 09/19/18 20:35; Admin Dose 80 MG; Start 09/16/18 at 21:00 Carvedilol (Coreg) 3.125 mg BID PO Last administered on 09/18/18 21:03; Admin Dose 3.125 MG; Start 09/16/18 at 21:00 Cyanocobalamin (Vitamin B12) 1,000 mcg DAILY PO Last administered on 09/19/18 09:47; Admin Dose 1,000 MCG; Start 09/17/18 at 09:00 Glimepiride (Amaryl) 2 mg WITH BREAKFAST PO Last administered on 09/20/18 07:55; Admin Dose 2 MG; Start 09/17/18 at 07:55 Pantoprazole (Protonix Tab) 40 mg DAILY PO Last administered on 09/19/18 09:47; Admin Dose 40 MG; Start 09/17/18 at 09:00 Miscellaneous Information 1 ea NOTE XX ; Start 09/16/18 at 19:30 Glucose (Glutose) 15 gm Q15M PRN PO DECREASED GLUCOSE; Start 09/16/18 at 19:30 Glucose (Glutose) 22.5 gm Q15M PRN PO DECREASED GLUCOSE; Start 09/16/18 at 19:30 Dextrose (D50w Syringe) 25 ml Q15M PRN IV DECREASED GLUCOSE; Start 09/16/18 at 19:30 Dextrose (D50w Syringe) 50 ml Q15M PRN IV DECREASED GLUCOSE; Start 09/16/18 at 19:30 Glucagon (Glucagen) 1 mg Q15M PRN IM DECREASED GLUCOSE; Start 09/16/18 at 19:30 Glucose (Glutose) 15 gm Q15M PRN BUCCAL DECREASED GLUCOSE; Start 09/16/18 at 19:30 Insulin Aspart (Novolog Insulin Pen) NOVOLOG *MILD* ALGORITHM WITH MEALS BEDTIME SC Last administered on 09/19/18at 12:06; Admin Dose 2 UNIT; Start 09/17/18 at 08:30 Tamsulosin HCl (Flomax) 0.4 mg DAILY PO Last administered on 09/19/18 09:45; Admin Dose 0.4 MG; Start 09/18/18 at 09:00 Furosemide (Lasix) 20 mg BID DIURETICS IV Last administered on 09/20/18 05:06; Admin Dose 20 MG; Start 09/18/18 at 18:00 Hydralazine HCl (Apresoline) 10 mg Q8 PO Last administered on 09/20/18 05:06; Admin Dose 10 MG; Start 09/18/18 at 14:00 Levothyroxine Sodium (Synthroid) 125 mcg DAILY@06 PO Last administered on 7/ 26/19at 05:06; Admin Dose 125 MCG; Start 09/20/18 at 06:00 MIHAI JOSEPH MD Sep 20, 2018 08:42
[2018-09-20] MEDS: TAMSULOSIN (SR) 0.4 MG CAP PO SCH (09:15)
[2018-09-20] MEDS: CYANOCOBALAMIN 500 MCG TAB PO SCH (09:15)
[2018-09-20] MEDS: ASPIRIN (EC) 81 MG TAB PO SCH (09:15)
[2018-09-20] MEDS: ALLOPURINOL 100 MG TAB PO SCH (09:15)
[2018-09-20] MEDS: PANTOPRAZOLE (EC) 40 MG TAB PO SCH (09:15)
[2018-09-20] MEDS: ACETAMINOPHEN 500 MG TAB PO SCH (09:15)
[2018-09-20] MEDS: ARIPIPRAZOLE 5 MG TAB PO SCH (09:15)
[2018-09-20] MEDS: SOD CHLORIDE 0.9% 1,000 ML IV SCH ×2 (09:46→22:20)
[2018-09-20 11:15] VITALS: BP 105/59; PULSE 58; RESP 18
--- NOTE | 2018-09-20 13:02 | PN ---
Date/Time of Note Date/Time of Note DATE: 09/20/18 TIME: 13:01 Assessment/Plan VTE Prophylaxis Risk score (from [facility])>0 risk: 5 SCD applied (from [facility]): Yes SCD contraindicated: other Pharmacological prophylaxis: other Pharm contraindication: other Lines/Catheters IV C[facility]ter Type (from [facility] Peripheral IV Urinary Cath still in place: No Assessment/Plan Assessment/Plan -Dizziness, hypotension. Telemetry monitoring. Continue digoxin and Coreg, cardiac enzymes are negative x3. -Ischemic cardiomyopathy with ejection fraction of 25%. Dr. Choudhury is following in in cardiology consultation. -Acute kidney injury on chronic kidney disease stage III, continue to monitor BUN and creatinine. Dr. Novak is following in nephrology consultation -Hx of ICD placement for symptomatic bradycardia. -Coronary artery disease with history of stent placement. Continue aspirin. -Status post transcatheter aortic valve replacement in 2016. -Chronic obstructive pulmonary disease. -Diabetes mellitus -Hypothyroidism, continue levothyroxine at 125 mcg daily. 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 Plan of care discussed with Dr. Giron. Result Diagram: 09/20/18 0558 09/20/18 0558 Results 24hrs Laboratory Tests Test 09/19/18 17:11 09/19/18 20:38 09/20/18 05:58 09/20/18 07:58 Bedside Glucose 104 132 130 White Blood Count 9.4 Red Blood Count 4.26 L Hemoglobin 12.3 L Hematocrit 38.0 L Mean Corpuscular 89.2 Volume Mean Corpuscular 28.9 L Hemoglobin Mean Corpuscular 32.4 Hemoglobin Concent Red Cell 14.1 Distribution Width Platelet Count 218 Mean Platelet Volume 10.3 Immature 0.400 Granulocytes % Neutrophils % 75.2 Lymphocytes % 15.5 Monocytes % 7.0 Eosinophils % 1.6 Basophils % 0.3 Nucleated Red Blood 0.0 Cells % Immature 0.040 H Granulocytes # Neutrophils # 7.0 Lymphocytes # 1.5 Monocytes # 0.7 Eosinophils # 0.2 Basophils # 0.0 Nucleated Red Blood 0.0 Cells # Sodium Level 138 Potassium Level 4.4 Chloride Level 99 Carbon Dioxide Level 28 Anion Gap 11 Blood Urea Nitrogen 42 H Creatinine 2.05 H Est Glomerular Filtrat Rate mL/min Glucose Level 120 Calcium Level 10.1 Test 09/20/18 12:30 Bedside Glucose 183 Subjective 24 Hr Interval Summary Free Text/Dictation nad feels better; denies any dizziness no events last night dw staff Eyes: no complaints ENT: no complaints Respiratory: no complaints Cardiovascular: no complaints Gastrointestinal: no complaints Genitourinary: no complaints Musculoskeletal: other (juancho general weakness) Skin: no complaints Neurologic: no complaints Endocrine: no complaints Psychological: nl mood/affect Immunologic: no complaints Exam/Review of Systems Exam Vitals Vital Signs Date Temp Pulse Resp B/P (MAP) Pulse Ox O2 O2 Flow FiO2 Time Delivery Rate 09/20/18 97.5 58 18 105/59 97 Room Air 11:15 (74) 09/20/18 21 08:19 09/16/18 2.0 20:34 Intake and Output 09/19/18 09/19/18 09/20/18 1515:00 23:00 07:00 IntakeIntake Total 1320 ml 360 ml 540 ml OutputOutput Total 1050 ml 1000 ml 900 ml BalanceBalance 270 ml -640 ml -360 ml Constitutional: alert, oriented, well developed Psych: nl mood/affect Head: normocephalic Eyes: nl lids, nl sclera ENMT: nl external ears & nose Neck: non-tender Respiratory: clear to auscultation Cardiovascular: nl pulses, other (s1s2) Gastrointestinal: soft, non-tender Musculoskeletal: nl extremities to inspection Extremities: normal pulses Neurological: nl speech Skin: other (no skin rash nted ) Lymph: nontender Results Results 24hrs Laboratory Tests Test 09/19/18 17:11 09/19/18 20:38 09/20/18 05:58 09/20/18 07:58 Bedside Glucose 104 132 130 White Blood Count 9.4 Red Blood Count 4.26 L Hemoglobin 12.3 L Hematocrit 38.0 L Mean Corpuscular 89.2 Volume Mean Corpuscular 28.9 L Hemoglobin Mean Corpuscular 32.4 Hemoglobin Concent Red Cell 14.1 Distribution Width Platelet Count 218 Mean Platelet Volume 10.3 Immature 0.400 Granulocytes % Neutrophils % 75.2 Lymphocytes % 15.5 Monocytes % 7.0 Eosinophils % 1.6 Basophils % 0.3 Nucleated Red Blood 0.0 Cells % Immature 0.040 H Granulocytes # Neutrophils # 7.0 Lymphocytes # 1.5 Monocytes # 0.7 Eosinophils # 0.2 Basophils # 0.0 Nucleated Red Blood 0.0 Cells # Sodium Level 138 Potassium Level 4.4 Chloride Level 99 Carbon Dioxide Level 28 Anion Gap 11 Blood Urea Nitrogen 42 H Creatinine 2.05 H Est Glomerular Filtrat Rate mL/min Glucose Level 120 Calcium Level 10.1 Test 09/20/18 12:30 Bedside Glucose 183 Medications Medication Current Medications Levalbuterol (Xopenex Neb) 0.63 mg Q6H RESP THERAPY HHN Last administered on 09/20/18 08:21; Admin Dose 0.63 MG; Start 09/16/18 at 20:00 Acetaminophen (Tylenol Tab) 500 mg DAILY PO Last administered on 09/20/18 09:15; Admin Dose 500 MG; Start 09/17/18 at 09:00 Allopurinol (Zyloprim) 100 mg DAILY PO Last administered on 09/20/18 09:15; Admin Dose 100 MG; Start 09/17/18 at 09:00 Aripiprazole (Abilify) 5 mg DAILY PO Last administered on 09/20/18 09:15; Admin Dose 5 MG; Start 09/17/18 at 09:00 Aspirin (Halfprin) 81 mg DAILY PO Last administered on 09/20/18 09:15; Admin Dose 81 MG; Start 09/17/18 at 09:00 Atorvastatin Calcium (Lipitor) 80 mg QHS PO Last administered on 09/19/18 20:35; Admin Dose 80 MG; Start 09/16/18 at 21:00 Carvedilol (Coreg) 3.125 mg BID PO Last administered on 09/18/18 21:03; Admin Dose 3.125 MG; Start 09/16/18 at 21:00 Cyanocobalamin (Vitamin B12) 1,000 mcg DAILY PO Last administered on 09/20/18 09:15; Admin Dose 1,000 MCG; Start 09/17/18 at 09:00 Glimepiride (Amaryl) 2 mg WITH BREAKFAST PO Last administered on 09/20/18 07: 55; Admin Dose 2 MG; Start 09/17/18 at 07:55 Pantoprazole (Protonix Tab) 40 mg DAILY PO Last administered on 09/20/18 09:15; Admin Dose 40 MG; Start 09/17/18 at 09:00 Miscellaneous Information 1 ea NOTE XX ; Start 09/16/18 at 19:30 Glucose (Glutose) 15 gm Q15M PRN PO DECREASED GLUCOSE; Start 09/16/18 at 19:30 Glucose (Glutose) 22.5 gm Q15M PRN PO DECREASED GLUCOSE; Start 09/16/18 at 19:30 Dextrose (D50w Syringe) 25 ml Q15M PRN IV DECREASED GLUCOSE; Start 09/16/18 at 19:30 Dextrose (D50w Syringe) 50 ml Q15M PRN IV DECREASED GLUCOSE; Start 09/16/18 at 19:30 Glucagon (Glucagen) 1 mg Q15M PRN IM DECREASED GLUCOSE; Start 09/16/18 at 19:30 Glucose (Glutose) 15 gm Q15M PRN BUCCAL DECREASED GLUCOSE; Start 09/16/18 at 19:30 Insulin Aspart (Novolog Insulin Pen) NOVOLOG *MILD* ALGORITHM WITH MEALS BEDTIME SC Last administered on 09/20/18at 12:34; Admin Dose 2 UNIT; Start 09/17/18 at 08:30 Tamsulosin HCl (Flomax) 0.4 mg DAILY PO Last administered on 09/20/18at 09:15; Admin Dose 0.4 MG; Start 09/18/18 at 09:00 Furosemide (Lasix) 20 mg BID DIURETICS IV Last administered on 09/20/18 05: 06; Admin Dose 20 MG; Start 09/18/18 at 18:00 Hydralazine HCl (Apresoline) 10 mg Q8 PO Last administered on 09/20/18 05:06; Admin Dose 10 MG; Start 09/18/18 at 14:00 Levothyroxine Sodium (Synthroid) 125 mcg DAILY@06 PO Last administered on 09/20/18 05:06; Admin Dose 125 MCG; Start 09/20/18 at 06:00 Sodium Chloride 1,000 ml @ 75 mls/hr [id number] IV Last administered on 09/20/18at 09:46; Admin Dose 75 MLS/HR; Start 09/20/18 at 09:00 SOFÍA CHU Sep 20, 2018 13:02
--- NOTE | 2018-09-20 13:20 | CONS ---
Assessment/Plan Assessment/Plan Hospital Course (Demo Recall) IMP: 1.CHF-systolic acute on chronic 2. Cardiomyopathy-EF 25% by echo 02/12 3.HTN 4.H/O ICD 5.h/o cad s/p prior stent-Neg lexiscan for ischemia 04/15 6.copd 7.SOB 8.Renal failure Recc: -Tele -serial ecg's -Contineu coreg as tolerated -Contineu asa -start low dose hydralazine afterload reduction as tolerated in lieu of ACEI given renal failure -Contineu lasix diuresis Consultation Date/Type/Reason Admit Date/Time Sep 18, 2018 at 13:39 Initial Consult Date 09/16/18 Type of Consult Cardiology Reason for Consultation cardiomyopathy Requesting Provider: JOS FOSTER MD Date/Time of Note DATE: 09/20/18 TIME: 13:18 Exam/Review of Systems Vital Signs Vitals Vital Signs Date Temp Pulse Resp B/P (MAP) Pulse Ox O2 O2 Flow FiO2 Time Delivery Rate 09/20/18 97.5 58 18 105/59 97 Room Air 11:15 (74) 09/20/18 21 08:19 09/16/18 2.0 20:34 Intake and Output 09/19/18 09/19/18 09/20/18 1515:00 23:00 07:00 IntakeIntake Total 1320 ml 360 ml 540 ml OutputOutput Total 1050 ml 1000 ml 900 ml BalanceBalance 270 ml -640 ml -360 ml Exam Exam Review of Systems: CONSTITUTIONAL: No fevers, chills. PULMONARY: No sob CARDIOVASCULAR: No chest pain/palpitations GASTROINTESTINAL: No nausea/vomiting. GENITOURINARY: No hematuria/dysuria. MUSCULOSKELETAL: No myagias/arthalgias. PSYCHIATRIC: The patient denies depression. NEUROLOGIC: No weakness Constitutional: alert Psych: no complaints Head: normocephalic ENMT: mucosa pink and moist Neck: supple, jvd (9 cm water) Respiratory: diminished breath sounds Cardiovascular: regular rate and rhythm Gastrointestinal: soft, non-tender Musculoskeletal: muscle tone (normal) Extremities: edema (none) Neurological: other (no focal deficits) Labs Result Diagram: 09/20/18 0558 09/20/18 0558 Results 24hrs Laboratory Tests Test 09/19/18 17:11 09/19/18 20:38 09/20/18 05:58 09/20/18 07:58 Bedside Glucose 104 132 130 White Blood Count 9.4 Red Blood Count 4.26 L Hemoglobin 12.3 L Hematocrit 38.0 L Mean Corpuscular 89.2 Volume Mean Corpuscular 28.9 L Hemoglobin Mean Corpuscular 32.4 Hemoglobin Concent Red Cell 14.1 Distribution Width Platelet Count 218 Mean Platelet Volume 10.3 Immature 0.400 Granulocytes % Neutrophils % 75.2 Lymphocytes % 15.5 Monocytes % 7.0 Eosinophils % 1.6 Basophils % 0.3 Nucleated Red Blood 0.0 Cells % Immature 0.040 H Granulocytes # Neutrophils # 7.0 Lymphocytes # 1.5 Monocytes # 0.7 Eosinophils # 0.2 Basophils # 0.0 Nucleated Red Blood 0.0 Cells # Sodium Level 138 Potassium Level 4.4 Chloride Level 99 Carbon Dioxide Level 28 Anion Gap 11 Blood Urea Nitrogen 42 H Creatinine 2.05 H Est Glomerular Filtrat Rate mL/min Glucose Level 120 Calcium Level 10.1 Test 09/20/18 12:30 Bedside Glucose 183 Medications Medications Current Medications Levalbuterol (Xopenex Neb) 0.63 mg Q6H RESP THERAPY HHN Last administered on 09/20/18 08:21; Admin Dose 0.63 MG; Start 09/16/18 at 20:00 Acetaminophen (Tylenol Tab) 500 mg DAILY PO Last administered on 09/20/18 09:15; Admin Dose 500 MG; Start 09/17/18 at 09:00 Allopurinol (Zyloprim) 100 mg DAILY PO Last administered on 09/20/18 09:15; Admin Dose 100 MG; Start 09/17/18 at 09:00 Aripiprazole (Abilify) 5 mg DAILY PO Last administered on 09/20/18 09:15; Admin Dose 5 MG; Start 09/17/18 at 09:00 Aspirin (Halfprin) 81 mg DAILY PO Last administered on 09/20/18 09:15; Admin Dose 81 MG; Start 09/17/18 at 09:00 Atorvastatin Calcium (Lipitor) 80 mg QHS PO Last administered on 09/19/18 20:35; Admin Dose 80 MG; Start 09/16/18 at 21:00 Carvedilol (Coreg) 3.125 mg BID PO Last administered on 7/24/19at 21:03; Admin Dose 3.125 MG; Start 09/16/18 at 21:00 Cyanocobalamin (Vitamin B12) 1,000 mcg DAILY PO Last administered on 09/20/18 09:15; Admin Dose 1,000 MCG; Start 09/17/18 at 09:00 Glimepiride (Amaryl) 2 mg WITH BREAKFAST PO Last administered on 09/20/18at 07:55; Admin Dose 2 MG; Start 09/17/18 at 07:55 Pantoprazole (Protonix Tab) 40 mg DAILY PO Last administered on 09/20/18 09:15; Admin Dose 40 MG; Start 09/17/18 at 09:00 Miscellaneous Information 1 ea NOTE XX ; Start 09/16/18 at 19:30 Glucose (Glutose) 15 gm Q15M PRN PO DECREASED GLUCOSE; Start 09/16/18 at 19:30 Glucose (Glutose) 22.5 gm Q15M PRN PO DECREASED GLUCOSE; Start 09/16/18 at 19:30 Dextrose (D50w Syringe) 25 ml Q15M PRN IV DECREASED GLUCOSE; Start 09/16/18 at 19:30 Dextrose (D50w Syringe) 50 ml Q15M PRN IV DECREASED GLUCOSE; Start 09/16/18 at 19:30 Glucagon (Glucagen) 1 mg Q15M PRN IM DECREASED GLUCOSE; Start 09/16/18 at 19:30 Glucose (Glutose) 15 gm Q15M PRN BUCCAL DECREASED GLUCOSE; Start 09/16/18 at 19:30 Insulin Aspart (Novolog Insulin Pen) NOVOLOG *MILD* ALGORITHM WITH MEALS BEDTIME SC Last administered on 09/20/18at 12:34; Admin Dose 2 UNIT; Start 09/17/18 at 08:30 Tamsulosin HCl (Flomax) 0.4 mg DAILY PO Last administered on 09/20/18 09:15; Admin Dose 0.4 MG; Start 09/18/18 at 09:00 Furosemide (Lasix) 20 mg BID DIURETICS IV Last administered on 09/20/18 05:06; Admin Dose 20 MG; Start 09/18/18 at 18:00 Hydralazine HCl (Apresoline) 10 mg Q8 PO Last administered on 09/20/18 05:06; Admin Dose 10 MG; Start 09/18/18 at 14:00 Levothyroxine Sodium (Synthroid) 125 mcg DAILY@06 PO Last administered on 09/20/18at 05:06; Admin Dose 125 MCG; Start 09/20/18 at 06:00 Sodium Chloride 1,000 ml @ 75 mls/hr [id number] IV Last administered on 09/20/18at 09:46; Admin Dose 75 MLS/HR; Start 09/20/18 at 09:00 JACLYN RODRIGUEZ Sep 20, 2018 13:20
[2018-09-20 15:22] VITALS: BP 103/51; PULSE 60; RESP 19
[2018-09-20 19:07] VITALS: BP 92/54; PULSE 63; RESP 18
[2018-09-20] MEDS: ATORVASTATIN 80 MG TAB PO SCH (20:33)
[2018-09-21] VITALS (8 sets, daily range): BP systolic 97–121; BP diastolic 49–58; PULSE 56–71; RESP 18–19
[2018-09-21] MEDS: LEVALBUTEROL (NEB) 0.63 MG/3 ML AMP HHN SCH ×4 (01:39→20:23)
[2018-09-21] MEDS: LEVOTHYROXINE 125 MCG TAB PO SCH (05:25)
[2018-09-21] MEDS: FUROSEMIDE 20 MG INJ IV SCH ×2 (05:26→17:44)
[2018-09-21] MEDS: INSULIN ASPART [NOVOLOG] 3 ML PEN SC SCH ×4 (07:55→20:40)
[2018-09-21] MEDS: GLIMEPIRIDE 2 MG TAB PO SCH (08:22)
[2018-09-21] MEDS: TAMSULOSIN (SR) 0.4 MG CAP PO SCH (08:23)
[2018-09-21] MEDS: PANTOPRAZOLE (EC) 40 MG TAB PO SCH (08:23)
[2018-09-21] MEDS: ALLOPURINOL 100 MG TAB PO SCH (08:23)
[2018-09-21] MEDS: ARIPIPRAZOLE 5 MG TAB PO SCH (08:23)
[2018-09-21] MEDS: ASPIRIN (EC) 81 MG TAB PO SCH (08:23)
[2018-09-21] MEDS: CYANOCOBALAMIN 500 MCG TAB PO SCH (08:23)
[2018-09-21] MEDS: ACETAMINOPHEN 500 MG TAB PO SCH (08:24)
[2018-09-21] MEDS: SOD CHLORIDE 0.9% 1,000 ML IV SCH (11:40)
--- NOTE | 2018-09-21 12:01 | PN ---
Date/Time of Note Date/Time of Note DATE: 09/21/18 TIME: 12:00 Assessment/Plan VTE Prophylaxis Risk score (from Ns)>0 risk: 5 SCD applied (from Ns): Yes Pharmacological prophylaxis: LMWH Lines/Catheters IV Catheter Type (from [facility]): Peripheral IV Urinary Cath still in place: No Assessment/Plan Hospital Course -Dizziness, hypotension. Telemetry monitoring. Continue digoxin and Coreg, cardiac enzymes are negative x3. -Ischemic cardiomyopathy with ejection fraction of 25%. Dr. Choudhury is following in in cardiology consultation. -Acute kidney injury on chronic kidney disease stage III, continue to monitor BUN and creatinine. Dr. Novak is following in nephrology consultation -Hx of ICD placement for symptomatic bradycardia. -Coronary artery disease with history of stent placement. Continue aspirin. -Status post transcatheter aortic valve replacement in 2016. -Chronic obstructive pulmonary disease. -Diabetes mellitus -Hypothyroidism, continue levothyroxine at 125 mcg daily. 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 Result Diagram: 09/20/18 0558 09/21/18 0550 Results 24hrs Laboratory Tests Test 09/20/18 12:30 09/20/18 17:31 09/20/18 20:31 09/21/18 05:50 Bedside Glucose 183 109 125 Sodium Level 135 Potassium Level 4.0 Chloride Level 98 Carbon Dioxide Level 27 Anion Gap 10 Blood Urea Nitrogen 42 H Creatinine 1.93 H Est Glomerular Filtrat Rate mL/min Glucose Level 99 Calcium Level 9.5 Test 09/21/18 08:21 09/21/18 11:33 Bedside Glucose 120 194 Subjective 24 Hr Interval Summary Free Text/Dictation Patient still complain of episodes of dizziness and lightheadedness Exam/Review of Systems Exam Vitals Vital Signs Date Temp Pulse Resp B/P (MAP) Pulse Ox O2 O2 Flow FiO2 Time Delivery Rate 09/21/18 97.9 56 18 116/56 97 Room Air 11:25 (76) 09/21/18 21 08:44 Intake and Output 09/20/18 09/20/18 09/21/18 1515:00 23:00 07:00 IntakeIntake Total 400 ml 200 ml OutputOutput Total 800 ml BalanceBalance 400 ml -600 ml Constitutional: well developed Head: normocephalic, atraumatic Neck: supple Respiratory: clear to auscultation Cardiovascular: regular rate and rhythm Gastrointestinal: soft, non-tender Results Results 24hrs Laboratory Tests Test 09/20/18 12:30 09/20/18 17:31 09/20/18 20:31 09/21/18 05:50 Bedside Glucose 183 109 125 Sodium Level 135 Potassium Level 4.0 Chloride Level 98 Carbon Dioxide Level 27 Anion Gap 10 Blood Urea Nitrogen 42 H Creatinine 1.93 H Est Glomerular Filtrat Rate mL/min Glucose Level 99 Calcium Level 9.5 Test 09/21/18 08:21 09/21/18 11:33 Bedside Glucose 120 194 Medications Medication Current Medications Levalbuterol (Xopenex Neb) 0.63 mg Q6H RESP THERAPY HHN Last administered on 09/21/18 08:38; Admin Dose 0.63 MG; Start 09/16/18 at 20:00 Acetaminophen (Tylenol Tab) 500 mg DAILY PO Last administered on 09/20/18 09:15; Admin Dose 500 MG; Start 09/17/18 at 09:00 Allopurinol (Zyloprim) 100 mg DAILY PO Last administered on 09/21/18 08:23; Admin Dose 100 MG; Start 09/17/18 at 09:00 Aripiprazole (Abilify) 5 mg DAILY PO Last administered on 09/21/18 08:23; Admin Dose 5 MG; Start 09/17/18 at 09:00 Aspirin (Halfprin) 81 mg DAILY PO Last administered on 09/21/18 08:23; Admin Dose 81 MG; Start 09/17/18 at 09:00 Atorvastatin Calcium (Lipitor) 80 mg QHS PO Last administered on 09/20/18 20:33; Admin Dose 80 MG; Start 09/16/18 at 21:00 Carvedilol (Coreg) 3.125 mg BID PO Last administered on 09/21/18 08:27; Admin Dose 3.125 MG; Start 09/16/18 at 21:00 Cyanocobalamin (Vitamin B12) 1,000 mcg DAILY PO Last administered on 09/21/18 08:23; Admin Dose 1,000 MCG; Start 09/17/18 at 09:00 Glimepiride (Amaryl) 2 mg WITH BREAKFAST PO Last administered on 09/21/18 08:22; Admin Dose 2 MG; Start 09/17/18 at 07:55 Pantoprazole (Protonix Tab) 40 mg DAILY PO Last administered on 09/21/18 08:23; Admin Dose 40 MG; Start 09/17/18 at 09:00 Miscellaneous Information 1 ea NOTE XX ; Start 09/16/18 at 19:30 Glucose (Glutose) 15 gm Q15M PRN PO DECREASED GLUCOSE; Start 09/16/18 at 19:30 Glucose (Glutose) 22.5 gm Q15M PRN PO DECREASED GLUCOSE; Start 09/16/18 at 19:30 Dextrose (D50w Syringe) 25 ml Q15M PRN IV DECREASED GLUCOSE; Start 09/16/18 at 19:30 Dextrose (D50w Syringe) 50 ml Q15M PRN IV DECREASED GLUCOSE; Start 09/16/18 at 19:30 Glucagon (Glucagen) 1 mg Q15M PRN IM DECREASED GLUCOSE; Start 09/16/18 at 19:30 Glucose (Glutose) 15 gm Q15M PRN BUCCAL DECREASED GLUCOSE; Start 09/16/18 at 19:30 Insulin Aspart (Novolog Insulin Pen) NOVOLOG *MILD* ALGORITHM WITH MEALS BEDTIME SC Last administered on 09/21/18at 11:35; Admin Dose 2 UNIT; Start 09/17 at 08:30 Tamsulosin HCl (Flomax) 0.4 mg DAILY PO Last administered on 09/21/18 08:23; Admin Dose 0.4 MG; Start 09/18/18 at 09:00 Furosemide (Lasix) 20 mg BID DIURETICS IV Last administered on 09/21/18 05:26; Admin Dose 20 MG; Start 09/18/18 at 18:00 Hydralazine HCl (Apresoline) 10 mg Q8 PO Last administered on 09/20/18 05:06; Admin Dose 10 MG; Start 09/18/18 at 14:00 Levothyroxine Sodium (Synthroid) 125 mcg DAILY@06 PO Last administered on 09/21/18 05:25; Admin Dose 125 MCG; Start 09/20/18 at 06:00 Sodium Chloride 1,000 ml @ 75 mls/hr [id number] IV Last administered on 09/20/18 09:46; Admin Dose 75 MLS/HR; Start 09/20/18 at 09:00 DAMIR LATIF Sep 21, 2018 12:01
[2018-09-21] MEDS ORDERED: BISACODYL (EC) 5 MG TAB PO PRN (14:30)
--- NOTE | 2018-09-21 16:08 | CONS ---
Assessment/Plan Assessment/Plan Hospital Course (Demo Recall) IMP: 1.CHF-systolic acute on chronic 2. Cardiomyopathy-EF 25% by echo 02/12 3.HTN 4.H/O ICD 5.h/o cad s/p prior stent-Neg lexiscan for ischemia 04/15 6.copd 7.SOB 8.Renal failure Recc: -Tele -serial ecg's -Contineu coreg and low dose hydralazine afterload reduction as tolerated -Contineu asa -Contineu lasix diuresis -check cxr Consultation Date/Type/Reason Admit Date/Time Sep 18, 2018 at 13:39 Initial Consult Date 09/16/18 Type of Consult Cardiology Reason for Consultation dizziness Requesting Provider: JOS FOSTER MD Date/Time of Note DATE: 09/21/18 TIME: 16:06 Exam/Review of Systems Vital Signs Vitals Vital Signs Date Temp Pulse Resp B/P (MAP) Pulse Ox O2 O2 Flow FiO2 Time Delivery Rate 09/21/18 97.6 58 19 101/51 98 Room Air 15:11 (68) 09/21/18 21 08:44 Intake and Output 09/20/18 09/20/18 09/21/18 1515:00 23:00 07:00 IntakeIntake Total 400 ml 200 ml OutputOutput Total 800 ml BalanceBalance 400 ml -600 ml Exam Exam Review of Systems: CONSTITUTIONAL: No fevers, chills. PULMONARY: No sob CARDIOVASCULAR: No chest pain/palpitations GASTROINTESTINAL: No nausea/vomiting. GENITOURINARY: No hematuria/dysuria. MUSCULOSKELETAL: No myagias/arthalgias. PSYCHIATRIC: The patient denies depression. NEUROLOGIC: No weakness Constitutional: alert Psych: no complaints Head: normocephalic ENMT: mucosa pink and moist Neck: supple, jvd (9 cm water) Respiratory: clear to auscultation Cardiovascular: regular rate and rhythm Gastrointestinal: soft, non-tender Musculoskeletal: muscle tone (normal) Extremities: edema (trace/B) Neurological: other (No focal deficits) Labs Result Diagram: 09/20/18 0558 09/21/18 0550 Results 24hrs Laboratory Tests Test 09/20/18 17:31 09/20/18 20:31 09/21/18 05:50 09/21/18 08:21 Bedside Glucose 109 125 120 Sodium Level 135 Potassium Level 4.0 Chloride Level 98 Carbon Dioxide Level 27 Anion Gap 10 Blood Urea Nitrogen 42 H Creatinine 1.93 H Est Glomerular Filtrat Rate mL/min Glucose Level 99 Calcium Level 9.5 Test 09/21/18 11:33 Bedside Glucose 194 Medications Medications Current Medications Levalbuterol (Xopenex Neb) 0.63 mg Q6H RESP THERAPY HHN Last administered on 09/21/18 14:40; Admin Dose 0.63 MG; Start 09/16/18 at 20:00 Acetaminophen (Tylenol Tab) 500 mg DAILY PO Last administered on 09/20/18 09:15; Admin Dose 500 MG; Start 09/17/18 at 09:00 Allopurinol (Zyloprim) 100 mg DAILY PO Last administered on 09/21/18 08:23; Admin Dose 100 MG; Start 09/17/18 at 09:00 Aripiprazole (Abilify) 5 mg DAILY PO Last administered on 09/21/18 08:23; Admin Dose 5 MG; Start 09/17/18 at 09:00 Aspirin (Halfprin) 81 mg DAILY PO Last administered on 09/21/18 08:23; Admin Dose 81 MG; Start 09/17/18 at 09:00 Atorvastatin Calcium (Lipitor) 80 mg QHS PO Last administered on 09/20/18 20:33; Admin Dose 80 MG; Start 09/16/18 at 21:00 Carvedilol (Coreg) 3.125 mg BID PO Last administered on 09/21/18 08:27; Admin Dose 3.125 MG; Start 09/16/18 at 21:00 Cyanocobalamin (Vitamin B12) 1,000 mcg DAILY PO Last administered on 09/21/18 08:23; Admin Dose 1,000 MCG; Start 09/17/18 at 09:00 Glimepiride (Amaryl) 2 mg WITH BREAKFAST PO Last administered on 09/21/18 08:22; Admin Dose 2 MG; Start 09/17/18 at 07:55 Pantoprazole (Protonix Tab) 40 mg DAILY PO Last administered on 09/21/18 08:23; Admin Dose 40 MG; Start 09/17/18 at 09:00 Miscellaneous Information 1 ea NOTE XX ; Start 09/16/18 at 19:30 Glucose (Glutose) 15 gm Q15M PRN PO DECREASED GLUCOSE; Start 09/16/18 at 19:30 Glucose (Glutose) 22.5 gm Q15M PRN PO DECREASED GLUCOSE; Start 09/16/18 at 19:30 Dextrose (D50w Syringe) 25 ml Q15M PRN IV DECREASED GLUCOSE; Start 09/16/18 at 19:30 Dextrose (D50w Syringe) 50 ml Q15M PRN IV DECREASED GLUCOSE; Start 09/16/18 at 19:30 Glucagon (Glucagen) 1 mg Q15M PRN IM DECREASED GLUCOSE; Start 09/16/18 at 19:30 Glucose (Glutose) 15 gm Q15M PRN BUCCAL DECREASED GLUCOSE; Start 09/16/18 at 19:30 Insulin Aspart (Novolog Insulin Pen) NOVOLOG *MILD* ALGORITHM WITH MEALS BEDTIME SC Last administered on 09/21/18at 11:35; Admin Dose 2 UNIT; Start 09/17/18 at 08:30 Tamsulosin HCl (Flomax) 0.4 mg DAILY PO Last administered on 09/21/18at 08:23; Admin Dose 0.4 MG; Start 09/18/18 at 09:00 Furosemide (Lasix) 20 mg BID DIURETICS IV Last administered on 09/21/18at 05:26; Admin Dose 20 MG; Start 09/18/18 at 18:00 Hydralazine HCl (Apresoline) 10 mg Q8 PO Last administered on 09/21/18at 14:19; Admin Dose 10 MG; Start 09/18/18 at 14:00 Levothyroxine Sodium (Synthroid) 125 mcg DAILY@06 PO Last administered on 09/21/18at 05:25; Admin Dose 125 MCG; Start 09/20/18 at 06:00 Sodium Chloride 1,000 ml @ 75 mls/hr [id number] IV Last administered on 09/20/18at 09:46; Admin Dose 75 MLS/HR; Start 09/20/18 at 09:00 Docusate Sodium (Colace) 100 mg BID PO ; Start 09/21/18 at 21:00 Bisacodyl (Dulcolax) 10 mg DAILY PRN PO CONSTIPATION; Start 09/21/18 at 14:30 JACLYN RODRIGUEZ 27, 2019 16:08
--- NOTE | 2018-09-21 17:00 | CONS ---
Assessment/Plan Assessment/Plan Assessment/Plan (Daily) 1. acute kidney injury on CKD III due to prerenal azotemia + hemodynamics; BUN/Cr trended down to 42/1.93 2. 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 H/o Myelodysplastic syndrome 4.H/o CAD with previous stent placement 5. H/o Ischemic Cardiomyopathy s/p AICD placement 6. H/o COPD 7. H/o DM II 8. H/o Hypothyroidism 9. 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 S/p Aortic valve replacement in 2015 11. H/o BPH 12. Anemia- Hgb 11.3 ; stable Plan : continue Lasix 20mg pO daily - BUN/Cr trended down to 42/1.93- IVF NS at 75 cc/hr x 2 liter Renal US showed Normal kidneys Enlarged heterogeneous prostate Avoid nephrotoxic medications, renally dose all abx Flomax 0.4 mg po daily, PSA 1.26 UO- 800/24 hrs Patient seen in collaboration wit Dr Rony sotomayor. Plan of care dw staff Consultation Date/Type/Reason Admit Date/Time Sep 18, 2018 at 13:39 Initial Consult Date 09/16/18 Type of Consult Nephrology Reason for Consultation MELINDA on CKD Requesting Provider: JOS FOSTER MD Date/Time of Note DATE: 09/21/18 TIME: 16:58 24 HR Interval Summary Free Text/Dictation nad; afebrile feels better; denies any dizziness BUN/ Cr trended down to - 42/1.93 today UO - 800ML + X 2 voids (per patient) /24 hrs no new events overnight dw staff Detailed Summary Eyes: no complaints ENT: no complaints Respiratory: no complaints Cardiovascular: no complaints Gastrointestinal: no complaints Genitourinary: no complaints Musculoskeletal: no complaints Skin: no complaints Neurologic: no complaints Endocrine: no complaints Lymphatic: no complaints Psychological: nl mood/affect Immunologic: no complaints Exam/Review of Systems Exam Vitals Vital Signs Date Temp Pulse Resp B/P (MAP) Pulse Ox O2 O2 Flow FiO2 Time Delivery Rate 09/21/18 97.6 58 19 101/51 98 Room Air 15:11 (68) 09/21/18 21 08:44 Intake and Output 09/20/18 09/20/18 09/21/18 1515:00 23:00 07:00 IntakeIntake Total 400 ml 200 ml OutputOutput Total 800 ml BalanceBalance 400 ml -600 ml Constitutional: alert, oriented, well developed Psych: nl mood/affect Head: normocephalic Eyes: EOMI, nl lids, nl sclera ENMT: nl external ears & nose Neck: non-tender Respiratory: clear to auscultation Cardiovascular: nl pulses, other (S1S2) Gastrointestinal: soft, non-tender Musculoskeletal: nl extremities to inspection Skin: other (no rash noted) Results Result Diagram: 09/20/18 0558 09/21/18 0550 Results 24hrs Laboratory Tests Test 09/20/18 17:31 09/20/18 20:31 09/21/18 05:50 09/21/18 08:21 Bedside Glucose 109 125 120 Sodium Level 135 Potassium Level 4.0 Chloride Level 98 Carbon Dioxide Level 27 Anion Gap 10 Blood Urea Nitrogen 42 H Creatinine 1.93 H Est Glomerular Filtrat Rate mL/min Glucose Level 99 Calcium Level 9.5 Test 09/21/18 11:33 Bedside Glucose 194 Medications Medication Current Medications Levalbuterol (Xopenex Neb) 0.63 mg Q6H RESP THERAPY HHN Last administered on 09/21/18 14:40; Admin Dose 0.63 MG; Start 09/16/18 at 20:00 Acetaminophen (Tylenol Tab) 500 mg DAILY PO Last administered on 09/20/18 09:15; Admin Dose 500 MG; Start 09/17/18 at 09:00 Allopurinol (Zyloprim) 100 mg DAILY PO Last administered on 09/21/18 08:23; Admin Dose 100 MG; Start 09/17/18 at 09:00 Aripiprazole (Abilify) 5 mg DAILY PO Last administered on 09/21/18 08:23; Ad min Dose 5 MG; Start 09/17/18 at 09:00 Aspirin (Halfprin) 81 mg DAILY PO Last administered on 09/21/18 08:23; Admin Dose 81 MG; Start 09/17/18 at 09:00 Atorvastatin Calcium (Lipitor) 80 mg QHS PO Last administered on 09/20/18 20:33; Admin Dose 80 MG; Start 09/16/18 at 21:00 Carvedilol (Coreg) 3.125 mg BID PO Last administered on 7/27/19at 08:27; Admin Dose 3.125 MG; Start 09/16/18 at 21:00 Cyanocobalamin (Vitamin B12) 1,000 mcg DAILY PO Last administered on 09/21/18 08:23; Admin Dose 1,000 MCG; Start 09/17/18 at 09:00 Glimepiride (Amaryl) 2 mg WITH BREAKFAST PO Last administered on 09/21/18 08:22; Admin Dose 2 MG; Start 09/17/18 at 07:55 Pantoprazole (Protonix Tab) 40 mg DAILY PO Last administered on 09/21/18 08:23; Admin Dose 40 MG; Start 09/17/18 at 09:00 Miscellaneous Information 1 ea NOTE XX ; Start 09/16/18 at 19:30 Glucose (Glutose) 15 gm Q15M PRN PO DECREASED GLUCOSE; Start 09/16/18 at 19:30 Glucose (Glutose) 22.5 gm Q15M PRN PO DECREASED GLUCOSE; Start 09/16/18 at 19:30 Dextrose (D50w Syringe) 25 ml Q15M PRN IV DECREASED GLUCOSE; Start 09/16/18 at 19:30 Dextrose (D50w Syringe) 50 ml Q15M PRN IV DECREASED GLUCOSE; Start 09/16/18 at 19:30 Glucagon (Glucagen) 1 mg Q15M PRN IM DECREASED GLUCOSE; Start 09/16/18 at 19:30 Glucose (Glutose) 15 gm Q15M PRN BUCCAL DECREASED GLUCOSE; Start 09/16/18 at 19:30 Insulin Aspart (Novolog Insulin Pen) NOVOLOG *MILD* ALGORITHM WITH MEALS BEDTIME SC Last administered on 09/21/18at 11:35; Admin Dose 2 UNIT; Start 09/17/18 at 08:30 Tamsulosin HCl (Flomax) 0.4 mg DAILY PO Last administered on 09/21/18 08:23; Admin Dose 0.4 MG; Start 09/18/18 at 09:00 Furosemide (Lasix) 20 mg BID DIURETICS IV Last administered on 09/21/18 05:26; Admin Dose 20 MG; Start 09/18/18 at 18:00 Hydralazine HCl (Apresoline) 10 mg Q8 PO Last administered on 09/21/18at 14:19; Admin Dose 10 MG; Start 09/18/18 at 14:00 Levothyroxine Sodium (Synthroid) 125 mcg DAILY@06 PO Last administered on 09/21/18at 05:25; Admin Dose 125 MCG; Start 09/20/18 at 06:00 Sodium Chloride 1,000 ml @ 75 mls/hr [id number] IV Last administered on 09/20/18at 09:46; Admin Dose 75 MLS/HR; Start 09/20/18 at 09:00 Docusate Sodium (Colace) 100 mg BID PO ; Start 09/21/18 at 21:00 Bisacodyl (Dulcolax) 10 mg DAILY PRN PO CONSTIPATION; Start 09/21/18 at 14:30 SOFÍA CHU Sep 21, 2018 17:00
[2018-09-21] MEDS: DOCUSATE SODIUM 100 MG CAP PO SCH (20:37)
[2018-09-21] MEDS: ATORVASTATIN 80 MG TAB PO SCH (20:37)
[2018-09-22] VITALS (9 sets, daily range): BP systolic 101–121; BP diastolic 53–69; PULSE 58–80; RESP 18
[2018-09-22] MEDS: SOD CHLORIDE 0.9% 1,000 ML IV SCH (00:58)
[2018-09-22] MEDS: LEVALBUTEROL (NEB) 0.63 MG/3 ML AMP HHN SCH ×4 (01:20→19:34)
[2018-09-22] MEDS: FUROSEMIDE 20 MG INJ IV SCH ×2 (05:25→17:41)
[2018-09-22] MEDS: LEVOTHYROXINE 125 MCG TAB PO SCH (05:25)
[2018-09-22] MEDS: INSULIN ASPART [NOVOLOG] 3 ML PEN SC SCH ×4 (07:53→20:14)
[2018-09-22] MEDS: ASPIRIN (EC) 81 MG TAB PO SCH (08:33)
[2018-09-22] MEDS: ACETAMINOPHEN 500 MG TAB PO SCH (08:33)
[2018-09-22] MEDS: TAMSULOSIN (SR) 0.4 MG CAP PO SCH (08:34)
[2018-09-22] MEDS: PANTOPRAZOLE (EC) 40 MG TAB PO SCH (08:34)
[2018-09-22] MEDS: CYANOCOBALAMIN 500 MCG TAB PO SCH (08:34)
[2018-09-22] MEDS: ARIPIPRAZOLE 5 MG TAB PO SCH (08:34)
[2018-09-22] MEDS: GLIMEPIRIDE 2 MG TAB PO SCH (08:34)
[2018-09-22] MEDS: DOCUSATE SODIUM 100 MG CAP PO SCH ×2 (08:34→20:09)
[2018-09-22] MEDS: ALLOPURINOL 100 MG TAB PO SCH (08:35)
--- NOTE | 2018-09-22 11:20 | CONS ---
Assessment/Plan Assessment/Plan Assessment/Plan (Daily) 1. acute kidney injury on CKD III due to prerenal azotemia + hemodynamics; BUN/Cr trended down to 42/1.93 2. Hx of Chronic right ACCT EXEC territory infarct 3. H/o Myelodysplastic syndrome 4.H/o CAD with previous stent placement 5. H/o Ischemic Cardiomyopathy s/p AICD placement 6. H/o COPD 7. H/o DM II 8. H/o Hypothyroidism 9. 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 S/p Aortic valve replacement in 2015 11. H/o BPH 12. Anemia- Hgb 12.3 ; stable Plan : continue Lasix 20mg pO daily - BUN/Cr trended down to 35/1.69- Sp IVF NS at 75 cc/hr x 2 liter UO- 2.3 L /24 hrs Renal US showed Normal kidneys Enlarged heterogeneous prostate Avoid nephrotoxic medications, renally dose all abx Flomax 0.4 mg po daily, PSA 1.26 Patient seen in collaboration wit Dr Rony sotomayor. Plan of care dw staff Consultation Date/Type/Reason Admit Date/Time Sep 18, 2018 at 13:39 Initial Consult Date 09/16/18 Requesting Provider: JOS FOSTER MD Date/Time of Note DATE: 09/22/18 TIME: 11:11 24 HR Interval Summary Free Text/Dictation nad; afebrile feels better; denies any chest pain, dizziness BUN/Cr trended down to 35/1.69 today UO -UO- 2.3 L /24 hrs no new events overnight dw staff Detailed Summary Eyes: no complaints ENT: no complaints Respiratory: no complaints Cardiovascular: no complaints Gastrointestinal: no complaints Genitourinary: no complaints Musculoskeletal: no complaints Skin: no complaints Neurologic: no complaints Endocrine: no complaints Lymphatic: no complaints Psychological: nl mood/affect Immunologic: no complaints Exam/Review of Systems Exam Vitals Vital Signs Date Temp Pulse Resp B/P (MAP) Pulse Ox O2 O2 Flow FiO2 Time Delivery Rate 09/22/18 62 16 95 21 08:44 09/22/18 98.0 118/60 07:45 (79) 09/22/18 Room Air 04:00 Intake and Output 09/21/18 09/21/18 09/22/18 1515:00 23:00 07:00 IntakeIntake Total 1420 ml 50 ml OutputOutput Total 900 ml 875 ml 600 ml BalanceBalance -900 ml 545 ml -550 ml Constitutional: alert, oriented, well developed Psych: nl mood/affect Head: atraumatic Eyes: nl lids, nl sclera, PERRL ENMT: nl external ears & nose Neck: non-tender Respiratory: clear to auscultation Cardiovascular: nl pulses, other (s1s2) Gastrointestinal: soft, non-tender Musculoskeletal: nl extremities to inspection Extremities: normal pulses Neurological: nl mental status, nl speech Skin: other (no rash noted) Lymph: nontender Results Result Diagram: 09/20/18 0558 09/22/18 0637 Results 24hrs Laboratory Tests Test 09/21/18 11:33 09/21/18 17:29 09/21/18 20:24 09/22/18 06:37 Bedside Glucose 194 94 112 Sodium Level 135 Potassium Level 3.9 Chloride Level 101 Carbon Dioxide Level 26 Anion Gap 8 Blood Urea Nitrogen 35 H Creatinine 1.69 H Est Glomerular Filtrat Rate mL/min Glucose Level 91 Calcium Level 9.5 Medications Medication Current Medications Levalbuterol (Xopenex Neb) 0.63 mg Q6H RESP THERAPY HHN Last administered on 09/22/18 08:38; Admin Dose 0.63 MG; Start 09/16/18 at 20:00 Acetaminophen (Tylenol Tab) 500 mg DAILY PO Last administered on 09/22/18 08 :33; Admin Dose 500 MG; Start 09/17/18 at 09:00 Allopurinol (Zyloprim) 100 mg DAILY PO Last administered on 09/22/18 08:35; Admin Dose 100 MG; Start 09/17/18 at 09:00 Aripiprazole (Abilify) 5 mg DAILY PO Last administered on 09/22/18 08:34; Admin Dose 5 MG; Start 09/17/18 at 09:00 Aspirin (Halfprin) 81 mg DAILY PO Last administered on 09/22/18 08:33; Admin Dose 81 MG; Start 09/17/18 at 09:00 Atorvastatin Calcium (Lipitor) 80 mg QHS PO Last administered on 09/21/18at 20:37; Admin Dose 80 MG; Start 09/16/18 at 21:00 Carvedilol (Coreg) 3.125 mg BID PO Last administered on 09/22/18 08:34; Admin Dose 3.125 MG; Start 09/16/18 at 21:00 Cyanocobalamin (Vitamin B12) 1,000 mcg DAILY PO Last administered on 09/22/18 08:34; Admin Dose 1,000 MCG; Start 09/17/18 at 09:00 Glimepiride (Amaryl) 2 mg WITH BREAKFAST PO Last administered on 09/22/18 08:34; Admin Dose 2 MG; Start 09/17/18 at 07:55 Pantoprazole (Protonix Tab) 40 mg DAILY PO Last administered on 09/22/18 08:34; Admin Dose 40 MG; Start 09/17/18 at 09:00 Miscellaneous Information 1 ea NOTE XX ; Start 09/16/18 at 19:30 Glucose (Glutose) 15 gm Q15M PRN PO DECREASED GLUCOSE; Start 09/16/18 at 19:30 Glucose (Glutose) 22.5 gm Q15M PRN PO DECREASED GLUCOSE; Start 09/16/18 at 19:30 Dextrose (D50w Syringe) 25 ml Q15M PRN IV DECREASED GLUCOSE; Start 09/16/18 at 19:30 Dextrose (D50w Syringe) 50 ml Q15M PRN IV DECREASED GLUCOSE; Start 09/16/18 at 19:30 Glucagon (Glucagen) 1 mg Q15M PRN IM DECREASED GLUCOSE; Start 09/16/18 at 19:30 Glucose (Glutose) 15 gm Q15M PRN BUCCAL DECREASED GLUCOSE; Start 09/16/18 at 19:30 Insulin Aspart (Novolog Insulin Pen) NOVOLOG *MILD* ALGORITHM WITH MEALS BEDTIME SC Last administered on 09/21/18at 11:35; Admin Dose 2 UNIT; Start 09/17/18 at 08:30 Tamsulosin HCl (Flomax) 0.4 mg DAILY PO Last administered on 09/22/18 08:34; Admin Dose 0.4 MG; Start 09/18/18 at 09:00 Furosemide (Lasix) 20 mg BID DIURETICS IV Last administered on 09/22/18 05:25; Admin Dose 20 MG; Start 09/18/18 at 18:00 Hydralazine HCl (Apresoline) 10 mg Q8 PO Last administered on 09/22/18 05:25; Admin Dose 10 MG; Start 09/18/18 at 14:00 Levothyroxine Sodium (Synthroid) 125 mcg DAILY@06 PO Last administered on 09/22/18at 05:25; Admin Dose 125 MCG; Start 09/20/18 at 06:00 Docusate Sodium (Colace) 100 mg BID PO Last administered on 09/22/18at 08:34; Admin Dose 100 MG; Start 09/21/18 at 21:00 Bisacodyl (Dulcolax) 10 mg DAILY PRN PO CONSTIPATION; Start 09/21/18 at 14:30 SOFÍA CHU Sep 22, 2018 11:20
--- NOTE | 2018-09-22 11:54 | PN ---
Date/Time of Note Date/Time of Note DATE: 09/22/18 TIME: 11:54 Assessment/Plan VTE Prophylaxis Risk score (from Ns)>0 risk: 5 SCD applied (from [facility] [place]): Yes SCD contraindicated: other Pharmacological prophylaxis: LMWH Lines/Catheters IV Catheter Type (from [email or web address] Peripheral IV Urinary Cath still in place: No Assessment/Plan Hospital Course -Dizziness, hypotension. Telemetry monitoring. Continue digoxin and Coreg, cardiac enzymes are negative x3. -Ischemic cardiomyopathy with ejection fraction of 25%. Dr. Choudhury is following in in cardiology consultation. -Acute kidney injury on chronic kidney disease stage III, continue to monitor BUN and creatinine. Dr. Novak is following in nephrology consultation -Hx of ICD placement for symptomatic bradycardia. -Coronary artery disease with history of stent placement. Continue aspirin. -Status post transcatheter aortic valve replacement in 2016. -Chronic obstructive pulmonary disease. -Diabetes mellitus -Hypothyroidism, continue levothyroxine at 125 mcg daily. 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0 80 18 112/69 98 11:23 (83) 09/22/18 21 08:44 09/22/18 Room Air 04:00 Intake and Output 09/21/18 09/21/18 09/22/18 1515:00 23:00 07:00 IntakeIntake Total 1420 ml 50 ml OutputOutput Total 900 ml 875 ml 600 ml BalanceBalance -900 ml 545 ml -550 ml Constitutional: well developed Head: normocephalic, atraumatic Neck: supple Cardiovascular: regular rate and rhythm Gastrointestinal: soft, non-tender Extremities: normal pulses Results Results 24hrs Laboratory Tests Test 09/21/18 17:29 09/21/18 20:24 09/22/18 06:37 Bedside Glucose 94 112 Sodium Level 135 Potassium Level 3.9 Chloride Level 101 Carbon Dioxide Level 26 Anion Gap 8 Blood Urea Nitrogen 35 H Creatinine 1.69 H Est Glomerular Filtrat Rate mL/min Glucose Level 91 Calcium Level 9.5 Medications Medication Current Medications Levalbuterol (Xopenex Neb) 0.63 mg Q6H RESP THERAPY HHN Last administered on 09/22/18 08:38; Admin Dose 0.63 MG; Start 09/16/18 at 20:00 Acetaminophen (Tylenol Tab) 500 mg DAILY PO Last administered on 09/22/18 08:33; Admin Dose 500 MG; Start 09/17/18 at 09:00 Allopurinol (Zyloprim) 100 mg DAILY PO Last administered on 09/22/18 08:35; Admin Dose 100 MG; Start 09/17/18 at 09:00 Aripiprazole (Abilify) 5 mg DAILY PO Last administered on 09/22/18 08:34; Admin Dose 5 MG; Start 09/17/18 at 09:00 Aspirin (Halfprin) 81 mg DAILY PO Last administered on 09/22/18 08:33; Admin Dose 81 MG; Start 09/17/18 at 09:00 Atorvastatin Calcium (Lipitor) 80 mg QHS PO Last administered on 09/21/18 20 :37; Admin Dose 80 MG; Start 09/16/18 at 21:00 Carvedilol (Coreg) 3.125 mg BID PO Last administered on 09/22/18 08:34; Admin Dose 3.125 MG; Start 09/16/18 at 21:00 Cyanocobalamin (Vitamin B12) 1,000 mcg DAILY PO Last administered on 09/22/18 08:34; Admin Dose 1,000 MCG; Start 09/17/18 at 09:00 Glimepiride (Amaryl) 2 mg WITH BREAKFAST PO Last administered on 09/22/18 08:34; Admin Dose 2 MG; Start 09/17/18 at 07:55 Pantoprazole (Protonix Tab) 40 mg DAILY PO Last administered on 09/22/18 0 8:34; Admin Dose 40 MG; Start 09/17/18 at 09:00 Miscellaneous Information 1 ea NOTE XX ; Start 09/16/18 at 19:30 Glucose (Glutose) 15 gm Q15M PRN PO DECREASED GLUCOSE; Start 09/16/18 at 19:30 Glucose (Glutose) 22.5 gm Q15M PRN PO DECREASED GLUCOSE; Start 09/16/18 at 19:30 Dextrose (D50w Syringe) 25 ml Q15M PRN IV DECREASED GLUCOSE; Start 09/16/18 at 19:30 Dextrose (D50w Syringe) 50 ml Q15M PRN IV DECREASED GLUCOSE; Start 09/16/18 at 19:30 Glucagon (Glucagen) 1 mg Q15M PRN IM DECREASED GLUCOSE; Start 09/16/18 at 19:30 Glucose (Glutose) 15 gm Q15M PRN BUCCAL DECREASED GLUCOSE; Start 09/16/18 at 19:30 Insulin Aspart (Novolog Insulin Pen) NOVOLOG *MILD* ALGORITHM WITH MEALS BEDTIME SC Last administered on 09/21/18at 11:35; Admin Dose 2 UNIT; Start 09/17/18 at 08:30 Tamsulosin HCl (Flomax) 0.4 mg DAILY PO Last administered on 09/22/18 08:34; Admin Dose 0.4 MG; Start 09/18/18 at 09:00 Furosemide (Lasix) 20 mg BID DIURETICS IV Last administered on 09/22/18 05:25; Admin Dose 20 MG; Start 09/18/18 at 18:00 Hydralazine HCl (Apresoline) 10 mg Q8 PO Last administered on 09/22/18 05:25; Admin Dose 10 MG; Start 09/18/18 at 14:00 Levothyroxine Sodium (Synthroid) 125 mcg DAILY@06 PO Last administered on 09/22/18 05:25; Admin Dose 125 MCG; Start 09/20/18 at 06:00 Docusate Sodium (Colace) 100 mg BID PO Last administered on 09/22/18 08:34; Admin Dose 100 MG; Start 09/21/18 at 21:00 Bisacodyl (Dulcolax) 10 mg DAILY PRN PO CONSTIPATION; Start 09/21/18 at 14:30 DAMIR LATIF Sep 22, 2018 11:54
--- NOTE | 2018-09-22 13:02 | CONS ---
Assessment/Plan Assessment/Plan Hospital Course (Demo Recall) IMP: 1.CHF-systolic acute on chronic 2. Cardiomyopathy-EF 25% by echo 02/12 3.HTN 4.H/O ICD 5.h/o cad s/p prior stent-Neg lexiscan for ischemia 04/15 6.copd 7.SOB 8.Renal failure Recc: -Tele -serial ecg's -Contineu coreg and low dose hydralazine afterload reduction as tolerated -Contineu asa -Contineu lasix diuresis for now IV as creatnine improving, cxr clear. Rigoberto transition to PO in next day Consultation Date/Type/Reason Admit Date/Time Sep 18, 2018 at 13:39 Initial Consult Date 09/16/18 Type of Consult Cardiology Reason for Consultation CHF Requesting Provider: JOS FOSTER MD Date/Time of Note DATE: 09/22/18 TIME: 13:00 Exam/Review of Systems Vital Signs Vitals Vital Signs Date Temp Pulse Resp B/P (MAP) Pulse Ox O2 O2 Flow FiO2 Time Delivery Rate 09/22/18 98.0 80 18 112/69 98 11:23 (83) 09/22/18 21 08:44 09/22/18 Room Air 04:00 Intake and Output 09/21/18 09/21/18 09/22/18 1515:00 23:00 07:00 IntakeIntake Total 1420 ml 50 ml OutputOutput Total 900 ml 875 ml 600 ml BalanceBalance -900 ml 545 ml -550 ml Exam Exam Review of Systems: CONSTITUTIONAL: No fevers, chills. PULMONARY: No sob CARDIOVASCULAR: No chest pain/palpitations GASTROINTESTINAL: No nausea/vomiting. GENITOURINARY: No hematuria/dysuria. MUSCULOSKELETAL: No myagias/arthalgias. PSYCHIATRIC: The patient denies depression. NEUROLOGIC: No weakness Constitutional: alert Psych: no complaints Head: normocephalic ENMT: mucosa pink and moist Neck: supple, jvd (9 cm water) Respiratory: diminished breath sounds Cardiovascular: regular rate and rhythm Gastrointestinal: soft, non-tender Musculoskeletal: muscle tone Extremities: normal pulses Neurological: confused Labs Result Diagram: 09/20/18 0558 09/22/18 0637 Results 24hrs Laboratory Tests Test 09/21/18 17:29 09/21/18 20:24 09/22/18 06:37 09/22/18 12:03 Bedside Glucose 94 112 152 Sodium Level 135 Potassium Level 3.9 Chloride Level 101 Carbon Dioxide Level 26 Anion Gap 8 Blood Urea Nitrogen 35 H Creatinine 1.69 H Est Glomerular Filtrat Rate mL/min Glucose Level 91 Calcium Level 9.5 Medications Medications Current Medications Levalbuterol (Xopenex Neb) 0.63 mg Q6H RESP THERAPY HHN Last administered on 09/22/18 08:38; Admin Dose 0.63 MG; Start 09/16/18 at 20:00 Acetaminophen (Tylenol Tab) 500 mg DAILY PO Last administered on 09/22/18 08:33; Admin Dose 500 MG; Start 09/17/18 at 09:00 Allopurinol (Zyloprim) 100 mg DAILY PO Last administered on 09/22/18 08:35; Admin Dose 100 MG; Start 09/17/18 at 09:00 Aripiprazole (Abilify) 5 mg DAILY PO Last administered on 09/22/18 08:34; Admin Dose 5 MG; Start 09/17/18 at 09:00 Aspirin (Halfprin) 81 mg DAILY PO Last administered on 09/22/18 08:33; Admin Dose 81 MG; Start 09/17/18 at 09:00 Atorvastatin Calcium (Lipitor) 80 mg QHS PO Last administered on 09/21/18 20:37; Admin Dose 80 MG; Start 09/16/18 at 21:00 Carvedilol (Coreg) 3.125 mg BID PO Last administered on 09/22/18 08:34; Admin Dose 3.125 MG; Start 09/16/18 at 21:00 Cyanocobalamin (Vitamin B12) 1,000 mcg DAILY PO Last administered on 09/22/18 08:34; Admin Dose 1,000 MCG; Start 09/17/18 at 09:00 Glimepiride (Amaryl) 2 mg WITH BREAKFAST PO Last administered on 09/22/18 08:34; Admin Dose 2 MG; Start 09/17/18 at 07:55 Pantoprazole (Protonix Tab) 40 mg DAILY PO Last administered on 09/22/18 08:34; Admin Dose 40 MG; Start 09/17/18 at 09:00 Miscellaneous Information 1 ea NOTE XX ; Start 09/16/18 at 19:30 Glucose (Glutose) 15 gm Q15M PRN PO DECREASED GLUCOSE; Start 09/16/18 at 19:30 Glucose (Glutose) 22.5 gm Q15M PRN PO DECREASED GLUCOSE; Start 09/16/18 at 19:30 Dextrose (D50w Syringe) 25 ml Q15M PRN IV DECREASED GLUCOSE; Start 09/16/18 at 19:30 Dextrose (D50w Syringe) 50 ml Q15M PRN IV DECREASED GLUCOSE; Start 09/16/18 at 19:30 Glucagon (Glucagen) 1 mg Q15M PRN IM DECREASED GLUCOSE; Start 09/16/18 at 19:30 Glucose (Glutose) 15 gm Q15M PRN BUCCAL DECREASED GLUCOSE; Start 09/16/18 at 19:30 Insulin Aspart (Novolog Insulin Pen) NOVOLOG *MILD* ALGORITHM WITH MEALS BED TIME SC Last administered on 09/22/18at 12:33; Admin Dose 1 UNIT; Start 09/17/18 at 08:30 Tamsulosin HCl (Flomax) 0.4 mg DAILY PO Last administered on 09/22/18at 08:34; Admin Dose 0.4 MG; Start 09/18/18 at 09:00 Furosemide (Lasix) 20 mg BID DIURETICS IV Last administered on 09/22/18 05:25; Admin Dose 20 MG; Start 09/18/18 at 18:00 Hydralazine HCl (Apresoline) 10 mg Q8 PO Last administered on 09/22/18 05:25; Admin Dose 10 MG; Start 09/18/18 at 14:00 Levothyroxine Sodium (Synthroid) 125 mcg DAILY@06 PO Last administered on 09/22/18 05:25; Admin Dose 125 MCG; Start 09/20/18 at 06:00 Docusate Sodium (Colace) 100 mg BID PO Last administered on 09/22/18 08:34; Admin Dose 100 MG; Start 09/21/18 at 21:00 Bisacodyl (Dulcolax) 10 mg DAILY PRN PO CONSTIPATION; Start 09/21/18 at 14:30 JACLYN RODRIGUEZ Sep 22, 2018 13:02
[2018-09-22] MEDS: ATORVASTATIN 80 MG TAB PO SCH (20:09)
[2018-09-23] VITALS (9 sets, daily range): BP systolic 90–110; BP diastolic 52–61; PULSE 55–69; RESP 16–19
[2018-09-23] MEDS: LEVALBUTEROL (NEB) 0.63 MG/3 ML AMP HHN SCH ×4 (01:16→20:03)
[2018-09-23] MEDS: FUROSEMIDE 20 MG INJ IV SCH ×2 (06:11→17:40)
[2018-09-23] MEDS: LEVOTHYROXINE 125 MCG TAB PO SCH (06:12)
[2018-09-23] MEDS: INSULIN ASPART [NOVOLOG] 3 ML PEN SC SCH ×4 (07:55→21:00)
[2018-09-23] MEDS: DOCUSATE SODIUM 100 MG CAP PO SCH ×2 (08:50→21:13)
[2018-09-23] MEDS: ARIPIPRAZOLE 5 MG TAB PO SCH (08:50)
[2018-09-23] MEDS: ASPIRIN (EC) 81 MG TAB PO SCH (08:50)
[2018-09-23] MEDS: CYANOCOBALAMIN 500 MCG TAB PO SCH (08:50)
[2018-09-23] MEDS: PANTOPRAZOLE (EC) 40 MG TAB PO SCH (08:50)
[2018-09-23] MEDS: ALLOPURINOL 100 MG TAB PO SCH (08:50)
[2018-09-23] MEDS: TAMSULOSIN (SR) 0.4 MG CAP PO SCH (08:51)
[2018-09-23] MEDS: ACETAMINOPHEN 500 MG TAB PO SCH (08:51)
[2018-09-23] MEDS: GLIMEPIRIDE 2 MG TAB PO SCH (08:55)
--- NOTE | 2018-09-23 12:20 | CONS ---
Assessment/Plan Assessment/Plan Hospital Course (Demo Recall) IMP: 1.CHF-systolic acute on chronic 2. Cardiomyopathy-EF 25% by echo 02/12 3.HTN 4.H/O ICD 5.h/o cad s/p prior stent-Neg lexiscan for ischemia 04/15 6.copd 7.SOB 8.Renal failure Recc: -Tele -serial ecg's -Contineu coreg and low dose hydralazine afterload reduction as tolerated -Contineu asa -Contineu lasix diuresis for now IV as creatnine improving, cxr clear. Rigoberto transition to PO in next 1-2 days Consultation Date/Type/Reason Admit Date/Time Sep 18, 2018 at 13:39 Initial Consult Date 09/16/18 Type of Consult Cardiology Reason for Consultation Mack Requesting Provider: JOS FOSTER MD Date/Time of Note DATE: 09/23/18 TIME: 12:19 Exam/Review of Systems Vital Signs Vitals Vital Signs Date Temp Pulse Resp B/P (MAP) Pulse Ox O2 O2 Flow FiO2 Time Delivery Rate 09/23/18 98.3 63 18 90/53 (65) 94 11:27 09/23/18 21 07:55 09/22/18 Room Air 04:00 Intake and Output 09/22/18 09/22/18 09/23/18 1515:00 23:00 07:00 IntakeIntake Total 600 ml 1190 ml 200 ml OutputOutput Total 1100 ml 2000 ml 600 ml BalanceBalance -500 ml -810 ml -400 ml Exam Exam Review of Systems: CONSTITUTIONAL: No fevers, chills. PULMONARY: No sob CARDIOVASCULAR: No chest pain/palpitations GASTROINTESTINAL: No nausea/vomiting. GENITOURINARY: No hematuria/dysuria. MUSCULOSKELETAL: No myagias/arthalgias. PSYCHIATRIC: The patient denies depression. NEUROLOGIC: No weakness Constitutional: alert, oriented Psych: no complaints Head: normocephalic ENMT: mucosa pink and moist Neck: supple, jvd Respiratory: clear to auscultation Cardiovascular: regular rate and rhythm Gastrointestinal: soft, non-tender Musculoskeletal: muscle tone (normal) Extremities: edema (no focal deficits) Neurological: other (No focal deficits) Labs Result Diagram: 09/20/18 0558 09/22/18 0637 Results 24hrs Laboratory Tests Test 09/22/18 16:54 09/22/18 20:11 09/23/18 08:01 Bedside Glucose 88 157 118 Medications Medications Current Medications Levalbuterol (Xopenex Neb) 0.63 mg Q6H RESP THERAPY HHN Last administered on 09/23/18 07:54; Admin Dose 0.63 MG; Start 09/16/18 at 20:00 Acetaminophen (Tylenol Tab) 500 mg DAILY PO Last administered on 09/23/18 08:51; Admin Dose 500 MG; Start 09/17/18 at 09:00 Allopurinol (Zyloprim) 100 mg DAILY PO Last administered on 09/23/18 08:50; Admin Dose 100 MG; Start 09/17/18 at 09:00 Aripiprazole (Abilify) 5 mg DAILY PO Last administered on 09/23/18 08:50; Admin Dose 5 MG; Start 09/17/18 at 09:00 Aspirin (Halfprin) 81 mg DAILY PO Last administered on 09/23/18 08:50; Admin Dose 81 MG; Start 09/17/18 at 09:00 Atorvastatin Calcium (Lipitor) 80 mg QHS PO Last administered on 09/22/18 20:09; Admin Dose 80 MG; Start 09/16/18 at 21:00 Carvedilol (Coreg) 3.125 mg BID PO Last administered on 09/23/18 08:51; Admin Dose 3.125 MG; Start 09/16/18 at 21:00 Cyanocobalamin (Vitamin B12) 1,000 mcg DAILY PO Last administered on 09/23/18 08:50; Admin Dose 1,000 MCG; Start 09/17/18 at 09:00 Glimepiride (Amaryl) 2 mg WITH BREAKFAST PO Last administered on 09/23/18 08:55; Admin Dose 2 MG; Start 09/17/18 at 07:55 Pantoprazole (Protonix Tab) 40 mg DAILY PO Last administered on 09/23/18 08:50; Admin Dose 40 MG; Start 09/17/18 at 09:00 Miscellaneous Information 1 ea NOTE XX ; Start 09/16/18 at 19:30 Glucose (Glutose) 15 gm Q15M PRN PO DECREASED GLUCOSE; Start 09/16/18 at 19:30 Glucose (Glutose) 22.5 gm Q15M PRN PO DECREASED GLUCOSE; Start 09/16/18 at 19:30 Dextrose (D50w Syringe) 25 ml Q15M PRN IV DECREASED GLUCOSE; Start 09/16/18 at 19:30 Dextrose (D50w Syringe) 50 ml Q15M PRN IV DECREASED GLUCOSE; Start 09/16/18 at 19:30 Glucagon (Glucagen) 1 mg Q15M PRN IM DECREASED GLUCOSE; Start 09/16/18 at 19:30 Glucose (Glutose) 15 gm Q15M PRN BUCCAL DECREASED GLUCOSE; Start 09/16/18 at 19:30 Insulin Aspart (Novolog Insulin Pen) NOVOLOG *MILD* ALGORITHM WITH MEALS BEDTIME SC Last administered on 09/22/18 12:33; Admin Dose 1 UNIT; Start 09/17/18 at 08:30 Tamsulosin HCl (Flomax) 0.4 mg DAILY PO Last administered on 09/23/18at 08:51; Admin Dose 0.4 MG; Start 09/18/18 at 09:00 Furosemide (Lasix) 20 mg BID DIURETICS IV Last administered on 09/23/18at 06:11; Admin Dose 20 MG; Start 09/18/18 at 18:00 Hydralazine HCl (Apresoline) 10 mg Q8 PO Last administered on 09/23/18 06:12; Admin Dose 10 MG; Start 09/18/18 at 14:00 Levothyroxine Sodium (Synthroid) 125 mcg DAILY@06 PO Last administered on 09/23/18at 06:12; Admin Dose 125 MCG; Start 09/20/18 at 06:00 Docusate Sodium (Colace) 100 mg BID PO Last administered on 09/23/18at 08:50; Admin Dose 100 MG; Start 09/21/18 at 21:00 Bisacodyl (Dulcolax) 10 mg DAILY PRN PO CONSTIPATION; Start 09/21/18 at 14:30 JACLYN RODRIGUEZ Sep 23, 2018 12:20
--- NOTE | 2018-09-23 13:32 | PN ---
Date/Time of Note Date/Time of Note DATE: 09/23/18 TIME: 13:31 Assessment/Plan VTE Prophylaxis Risk score (from Ns)>0 risk: 4 SCD applied (from Ns): Yes Pharmacological prophylaxis: LMWH Lines/Catheters IV [facility] Peripheral IV Urinary Cath still in place: No Assessment/Plan Hospital Course -Dizziness, hypotension. Telemetry monitoring. Continue digoxin and Coreg, cardiac enzymes are negative x3. -Ischemic cardiomyopathy with ejection fraction of 25%. Dr. Choudhury is following in in cardiology consultation. -Acute kidney injury on chronic kidney disease stage III, continue to monitor BUN and creatinine. Dr. Novak is following in nephrology consultation -Hx of ICD placement for symptomatic bradycardia. -Coronary artery disease with history of stent placement. Continue aspirin. -Status post transcatheter aortic valve replacement in 2016. -Chronic obstructive pulmonary disease. -Diabetes mellitus -Hypothyroidism, continue levothyroxine at 125 mcg daily. 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 Result Diagram: 09/20/18 0558 09/22/18 0637 Results 24hrs Laboratory Tests Test 09/22/18 16:54 09/22/18 20:11 09/23/18 08:01 09/23/18 12:21 Bedside Glucose 88 157 118 182 Subjective 24 Hr Interval Summary Free Text/Dictation Patient has no complaints Exam/Review of Systems Exam Vitals Vital Signs Date Temp Pulse Resp B/P (MAP) Pulse Ox O2 O2 Flow FiO2 Time Delivery Rate 09/23/18 98.3 63 18 90/53 (65) 94 11:27 09/23/18 21 07:55 09/22/18 Room Air 04:00 Intake and Output 09/22/18 09/22/18 09/23/18 1515:00 23:00 07:00 IntakeIntake Total 600 ml 1190 ml 200 ml OutputOutput Total 1100 ml 2000 ml 600 ml BalanceBalance -500 ml -810 ml -400 ml Constitutional: well developed Head: normocephalic, atraumatic Neck: supple Respiratory: diminished breath sounds Cardiovascular: regular rate and rhythm Gastrointestinal: soft, non-tender Extremities: normal pulses Results Results 24hrs Laboratory Tests Test 09/22/18 16:54 09/22/18 20:11 09/23/18 08:01 09/23/18 12:21 Bedside Glucose 88 157 118 182 Medications Medication Current Medications Levalbuterol (Xopenex Neb) 0.63 mg Q6H RESP THERAPY HHN Last administered on 09/23/18 07:54; Admin Dose 0.63 MG; Start 09/16/18 at 20:00 Acetaminophen (Tylenol Tab) 500 mg DAILY PO Last administered on 09/23/18 08:51; Admin Dose 500 MG; Start 09/17/18 at 09:00 Allopurinol (Zyloprim) 100 mg DAILY PO Last administered on 09/23/18 08:50; Admin Dose 100 MG; Start 09/17/18 at 09:00 Aripiprazole (Abilify) 5 mg DAILY PO Last administered on 09/23/18 08:50; Admin Dose 5 MG; Start 09/17/18 at 09:00 Aspirin (Halfprin) 81 mg DAILY PO Last administered on 09/23/18 08:50; Admin Dose 81 MG; Start 09/17/18 at 09:00 Atorvastatin Calcium (Lipitor) 80 mg QHS PO Last administered on 09/22/18 20:09; Admin Dose 80 MG; Start 09/16/18 at 21:00 Carvedilol (Coreg) 3.125 mg BID PO Last administered on 09/23/18 08:51; Admin Dose 3.125 MG; Start 09/16/18 at 21:00 Cyanocobalamin (Vitamin B12) 1,000 mcg DAILY PO Last administered on 09/23/18 08:50; Admin Dose 1,000 MCG; Start 09/17/18 at 09:00 Glimepiride (Amaryl) 2 mg WITH BREAKFAST PO Last administered on 09/23/18 08:55; Admin Dose 2 MG; Start 09/17/18 at 07:55 Pantoprazole (Protonix Tab) 40 mg DAILY PO Last administered on 09/23/18 08:50; Admin Dose 40 MG; Start 09/17/18 at 09:00 Miscellaneous Information 1 ea NOTE XX ; Start 09/16/18 at 19:30 Glucose (Glutose) 15 gm Q15M PRN PO DECREASED GLUCOSE; Start 09/16/18 at 19:30 Glucose (Glutose) 22.5 gm Q15M PRN PO DECREASED GLUCOSE; Start 09/16/18 at 19:30 Dextrose (D50w Syringe) 25 ml Q15M PRN IV DECREASED GLUCOSE; Start 09/16/18 at 19:30 Dextrose (D50w Syringe) 50 ml Q15M PRN IV DECREASED GLUCOSE; Start 09/16/18 at 19:30 Glucagon (Glucagen) 1 mg Q15M PRN IM DECREASED GLUCOSE; Start 09/16/18 at 19:30 Glucose (Glutose) 15 gm Q15M PRN BUCCAL DECREASED GLUCOSE; Start 09/16/18 at 19:30 Insulin Aspart (Novolog Insulin Pen) NOVOLOG *MILD* ALGORITHM WITH MEALS BEDTIME SC Last administered on 09/23/18 12:43; Admin Dose 2 UNIT; Start 09/17/18 at 08:30 Tamsulosin HCl (Flomax) 0.4 mg DAILY PO Last administered on 09/23/18 08:51; Admin Dose 0.4 MG; Start 09/18/18 at 09:00 Furosemide (Lasix) 20 mg BID DIURETICS IV Last administered on 09/23/18 06:11; Admin Dose 20 MG; Start 09/18/18 at 18:00 Hydralazine HCl (Apresoline) 10 mg Q8 PO Last administered on 09/23/18 06:12; Admin Dose 10 MG; Start 09/18/18 at 14:00 Levothyroxine Sodium (Synthroid) 125 mcg DAILY@06 PO Last administered on 09/23/18 06:12; Admin Dose 125 MCG; Start 09/20/18 at 06:00 Docusate Sodium (Colace) 100 mg BID PO Last administered on 09/23/18 08:50; Admin Dose 100 MG; Start 09/21/18 at 21:00 Bisacodyl (Dulcolax) 10 mg DAILY PRN PO CONSTIPATION; Start 09/21/18 at 14:30 DAMIR LATIF Sep 23, 2018 13:31
--- NOTE | 2018-09-23 17:16 | CONS ---
Assessment/Plan Assessment/Plan Assessment/Plan (Daily) 1. acute kidney injury on CKD III due to prerenal azotemia + hemodynamics 2. 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 H/o Myelodysplastic syndrome 4.H/o CAD with previous stent placement 5. H/o Ischemic Cardiomyopathy s/p AICD placement 6. H/o COPD 7. H/o DM II 8. H/o Hypothyroidism 9. 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 S/p Aortic valve replacement in 2015 11. H/o BPH 12. Anemia- Hgb 12.3 ; stable Plan : continue Lasix 20mg IV BID- will change to PO lasix tomorrow - BUN/Cr trended down to 35/1.69- no labs today to review yet Renal US showed Normal kidneys Enlarged heterogeneous prostate Avoid nephrotoxic medications, renally dose all abx Flomax 0.4 mg po daily, PSA 1.26 will follow up Consultation Date/Type/Reason Admit Date/Time Sep 18, 2018 at 13:39 Initial Consult Date 09/16/18 Type of Consult NEPHROLOGY Requesting Provider: JOS FOSTER MD Date/Time of Note DATE: 09/23/18 TIME: 17:15 Exam/Review of Systems Exam Vitals Vital Signs Date Temp Pulse Resp B/P (MAP) Pulse Ox O2 O2 Flow FiO2 Time Delivery Rate 09/23/18 97.9 58 16 101/56 96 15:42 (71) 09/23/18 21 14:37 09/22/18 Room Air 04:00 Intake and Output 09/22/18 09/22/18 09/23/18 1515:00 23:00 07:00 IntakeIntake Total 600 ml 1190 ml 200 ml OutputOutput Total 1100 ml 2000 ml 600 ml BalanceBalance -500 ml -810 ml -400 ml Exam Constitutional: alert, oriented, well developed Psych: nl mood/affect Head: normocephalic Eyes: EOMI, nl lids, nl sclera ENMT: nl external ears & nose Neck: non-tender Respiratory: clear to auscultation Cardiovascular: nl pulses, other (S1S2) Gastrointestinal: soft, non-tender Musculoskeletal: nl extremities to inspection Skin: other (no rash noted) Results Result Diagram: 09/20/18 0558 09/22/18 0637 Results 24hrs Laboratory Tests Test 09/22/18 20:11 09/23/18 08:01 09/23/18 12:21 Bedside Glucose 157 118 182 Medications Medication Current Medications Levalbuterol (Xopenex Neb) 0.63 mg Q6H RESP THERAPY HHN Last administered on 09/23/18 14:36; Admin Dose 0.63 MG; Start 09/16/18 at 20:00 Acetaminophen (Tylenol Tab) 500 mg DAILY PO Last administered on 09/23/18 08:51; Admin Dose 500 MG; Start 09/17/18 at 09:00 Allopurinol (Zyloprim) 100 mg DAILY PO Last administered on 09/23/18 08:50; Admin Dose 100 MG; Start 09/17/18 at 09:00 Aripiprazole (Abilify) 5 mg DAILY PO Last administered on 09/23/18 08:50; Admin Dose 5 MG; Start 09/17/18 at 09:00 Aspirin (Halfprin) 81 mg DAILY PO Last administered on 09/23/18 08:50; Admin Dose 81 MG; Start 09/17/18 at 09:00 Atorvastatin Calcium (Lipitor) 80 mg QHS PO Last administered on 09/22/18 20: 09; Admin Dose 80 MG; Start 09/16/18 at 21:00 Carvedilol (Coreg) 3.125 mg BID PO Last administered on 09/23/18 08:51; Admin Dose 3.125 MG; Start 09/16/18 at 21:00 Cyanocobalamin (Vitamin B12) 1,000 mcg DAILY PO Last administered on 09/23/18 08:50; Admin Dose 1,000 MCG; Start 09/17/18 at 09:00 Glimepiride (Amaryl) 2 mg WITH BREAKFAST PO Last administered on 09/23/18 08:55; Admin Dose 2 MG; Start 09/17/18 at 07:55 Pantoprazole (Protonix Tab) 40 mg DAILY PO Last administered on 09/23/18 08 :50; Admin Dose 40 MG; Start 09/17/18 at 09:00 Miscellaneous Information 1 ea NOTE XX ; Start 09/16/18 at 19:30 Glucose (Glutose) 15 gm Q15M PRN PO DECREASED GLUCOSE; Start 09/16/18 at 19:30 Glucose (Glutose) 22.5 gm Q15M PRN PO DECREASED GLUCOSE; Start 09/16/18 at 19:30 Dextrose (D50w Syringe) 25 ml Q15M PRN IV DECREASED GLUCOSE; Start 09/16/18 at 19:30 Dextrose (D50w Syringe) 50 ml Q15M PRN IV DECREASED GLUCOSE; Start 09/16/18 at 19:30 Glucagon (Glucagen) 1 mg Q15M PRN IM DECREASED GLUCOSE; Start 09/16/18 at 19:30 Glucose (Glutose) 15 gm Q15M PRN BUCCAL DECREASED GLUCOSE; Start 09/16/18 at 19:30 Insulin Aspart (Novolog Insulin Pen) NOVOLOG *MILD* ALGORITHM WITH MEALS BEDTIME SC Last administered on 09/23/18 12:43; Admin Dose 2 UNIT; Start 09/17/18 at 08:30 Tamsulosin HCl (Flomax) 0.4 mg DAILY PO Last administered on 09/23/18at 08:51; Admin Dose 0.4 MG; Start 09/18/18 at 09:00 Furosemide (Lasix) 20 mg BID DIURETICS IV Last administered on 09/23/18at 06:11; Admin Dose 20 MG; Start 09/18/18 at 18:00 Hydralazine HCl (Apresoline) 10 mg Q8 PO Last administered on 09/23/18at 15:36; Admin Dose 10 MG; Start 09/18/18 at 14:00 Levothyroxine Sodium (Synthroid) 125 mcg DAILY@06 PO Last administered on 09/23/18at 06:12; Admin Dose 125 MCG; Start 09/20/18 at 06:00 Docusate Sodium (Colace) 100 mg BID PO Last administered on 09/23/18at 08:50; Admin Dose 100 MG; Start 09/21/18 at 21:00 Bisacodyl (Dulcolax) 10 mg DAILY PRN PO CONSTIPATION; Start 09/21/18 at 14:30 MIHAI JOSEPH MD Sep 23, 2018 17:15
[2018-09-23] MEDS: ATORVASTATIN 80 MG TAB PO SCH (21:13)
[2018-09-24] MEDS: LEVALBUTEROL (NEB) 0.63 MG/3 ML AMP HHN SCH ×4 (01:17→19:56)
[2018-09-24 04:00] VITALS: BP 91/53; PULSE 60; RESP 18
[2018-09-24] MEDS: FUROSEMIDE 20 MG INJ IV SCH ×2 (06:06→18:26)
[2018-09-24] MEDS: LEVOTHYROXINE 125 MCG TAB PO SCH (06:07)
[2018-09-24 07:20] VITALS: BP 115/55; PULSE 67; RESP 17
[2018-09-24] MEDS: INSULIN ASPART [NOVOLOG] 3 ML PEN SC SCH ×4 (07:55→21:00)
[2018-09-24] MEDS: PANTOPRAZOLE (EC) 40 MG TAB PO SCH (08:15)
[2018-09-24] MEDS: DOCUSATE SODIUM 100 MG CAP PO SCH ×2 (08:15→21:15)
[2018-09-24] MEDS: CYANOCOBALAMIN 500 MCG TAB PO SCH (08:15)
[2018-09-24] MEDS: ACETAMINOPHEN 500 MG TAB PO SCH (08:15)
[2018-09-24] MEDS: ARIPIPRAZOLE 5 MG TAB PO SCH (08:15)
[2018-09-24] MEDS: ALLOPURINOL 100 MG TAB PO SCH (08:15)
[2018-09-24] MEDS: TAMSULOSIN (SR) 0.4 MG CAP PO SCH (08:15)
[2018-09-24] MEDS: ASPIRIN (EC) 81 MG TAB PO SCH (08:15)
[2018-09-24] MEDS: GLIMEPIRIDE 2 MG TAB PO SCH (08:16)
--- NOTE | 2018-09-24 10:12 | CONS ---
Consult Date/Type/Reason Admit Date/Time Sep 18, 2018 at 13:39 Initial Consult Date 09/16/18 Requesting Provider: JOS FOSTER MD Date/Time of Note DATE: 09/24/18 TIME: 10:10 Subjective NO acute events - pt comfortable - better overall- paced appropriately now. ROS: No fever, no chills, no nausea, no vomiting, no diarrhea/constipation No recent weight changes No chest pain, no PND, no orthopnea - mild SOB No dizziness, blurred vision No thirst, no heat or cold intolerance Objective Vitals Vital Signs Date Temp Pulse Resp B/P (MAP) Pulse Ox O2 O2 Flow FiO2 Time Delivery Rate 09/24/18 97.7 67 17 115/55 95 07:20 (75) 09/24/18 21 01:18 09/22/18 Room Air 04:00 Intake and Output 09/23/18 09/23/18 09/24/18 1515:00 23:00 07:00 IntakeIntake Total 300 ml 500 ml 60 ml OutputOutput Total 280 ml 200 ml 950 ml BalanceBalance 20 ml 300 ml -890 ml Exam General: WN/WD/NAD, AOx 1-2 dementia HEENT: Unicetric/atraumatic/EOMI (follow commands) NECK: JVD elevated, no thyromegaly Lymph: no lymphadenopathy HEART: regular with no S3, II/ systolic murmur at apex, ICD LUNGS: Coarse sounds ABD: soft, NT, ND, +BS : Intact Neuro: non focal SKIN: chronic changes EXT: trace edema Results/Medications Result Diagram: 09/20/18 0558 09/22/18 0637 Results 24 hrs Laboratory Tests Test 09/23/18 12:21 09/23/18 17:20 09/23/18 21:17 09/24/18 08:04 Bedside Glucose 182 128 118 110 Home Meds Active Scripts Allopurinol* (Allopurinol*) 100 Mg Tablet, 100 MG PO DAILY for 30 Days, #30 TAB Prov:JOS FOSTER MD 02/13/18 Cyanocobalamin* (Vitamin B12*) 500 Mcg Tab, 1000 MCG PO DAILY for 30 Days, #30 TAB Prov:JOS FOSTER MD 02/13/18 Aspirin Delayed Release (Aspirin Delayed Release) 81 Mg Tablet.dr 81 MG PO DAILY for 30 Days, #30 Prov:JOS FOSTER MD 02/13/18 Reported Medications Aripiprazole (Aripiprazole) 5 Mg Tablet, 0.5 TAB ORAL DAILY 09/16/18 Lisinopril* (Lisinopril*) 2.5 Mg Tablet, 1 TAB ORAL DAILY 09/16/18 Acetaminophen* (Acetaminophen*) 500 MG Extra Strength Tablet, 500 MG PO DAILY, TAB 09/16/18 Lamotrigine* (Lamotrigine*) 100 Mg Tablet, 1 TAB ORAL BID 09/16/18 Digoxin* (Lanoxin*) 0.125 Mg Tablet, 0.125 MG PO DAILY, TAB 01/28/18 Glimepiride* (Glimepiride*) 2 Mg Tablet, 2 MG PO WITH BREAKFAST, TAB 01/28/18 Furosemide* (Lasix*) 20 Mg Tablet, 20 MG PO DAILY, TAB 01/28/18 Carvedilol* (Carvedilol*) 3.125 Mg Tablet, 3.125 MG PO BID, #60 TAB 01/28/18 Pantoprazole* (Protonix*) 40 Mg Tablet.dr, 40 MG PO DAILY, TAB 01/28/18 Levothyroxine Sodium* (Levoxyl*) 150 Mcg Tablet, 150 MCG PO BEFORE BREAKFAST, #30 TAB 01/28/18 Atorvastatin* (Atorvastatin*) 80 Mg Tablet, 80 MG PO QHS, #30 TAB 01/28/18 Medications Current Medications Levalbuterol (Xopenex Neb) 0.63 mg Q6H RESP THERAPY HHN Last administered on 09/24/18at 01:17; Admin Dose 0.63 MG; Start 09/16/18 at 20:00 Acetaminophen (Tylenol Tab) 500 mg DAILY PO Last administered on 09/24/18at 08:15; Admin Dose 500 MG; Start 09/17/18 at 09:00 Allopurinol (Zyloprim) 100 mg DAILY PO Last administered on 09/24/18at 08:15; Admin Dose 100 MG; Start 09/17/18 at 09:00 Aripiprazole (Abilify) 5 mg DAILY PO Last administered on 09/24/18at 08:15; Adm in Dose 5 MG; Start 09/17/18 at 09:00 Aspirin (Halfprin) 81 mg DAILY PO Last administered on 09/24/18 08:15; Admin Dose 81 MG; Start 09/17/18 at 09:00 Atorvastatin Calcium (Lipitor) 80 mg QHS PO Last administered on 09/23/18 21:13; Admin Dose 80 MG; Start 09/16/18 at 21:00 Carvedilol (Coreg) 3.125 mg BID PO Last administered on 09/24/18 08:16; Admin Dose 3.125 MG; Start 09/16/18 at 21:00 Cyanocobalamin (Vitamin B12) 1,000 mcg DAILY PO Last administered on 09/24/18 08:15; Admin Dose 1,000 MCG; Start 09/17/18 at 09:00 Glimepiride (Amaryl) 2 mg WITH BREAKFAST PO Last administered on 09/24/18 08:16; Admin Dose 2 MG; Start 09/17/18 at 07:55 Pantoprazole (Protonix Tab) 40 mg DAILY PO Last administered on 09/24/18 08:15; Admin Dose 40 MG; Start 09/17/18 at 09:00 Miscellaneous Information 1 ea NOTE XX ; Start 09/16/18 at 19:30 Glucose (Glutose) 15 gm Q15M PRN PO DECREASED GLUCOSE; Start 09/16/18 at 19:30 Glucose (Glutose) 22.5 gm Q15M PRN PO DECREASED GLUCOSE; Start 09/16/18 at 19:30 Dextrose (D50w Syringe) 25 ml Q15M PRN IV DECREASED GLUCOSE; Start 09/16/18 at 19:30 Dextrose (D50w Syringe) 50 ml Q15M PRN IV DECREASED GLUCOSE; Start 09/16/18 at 19:30 Glucagon (Glucagen) 1 mg Q15M PRN IM DECREASED GLUCOSE; Start 09/16/18 at 19:30 Glucose (Glutose) 15 gm Q15M PRN BUCCAL DECREASED GLUCOSE; Start 09/16/18 at 19:30 Insulin Aspart (Novolog Insulin Pen) NOVOLOG *MILD* ALGORITHM WITH MEALS BEDTIME SC Last administered on 09/23/18 12:43; Admin Dose 2 UNIT; Start 09/17/18 at 08:30 Tamsulosin HCl (Flomax) 0.4 mg DAILY PO Last administered on 09/24/18 08:15; Admin Dose 0.4 MG; Start 09/18/18 at 09:00 Furosemide (Lasix) 20 mg BID DIURETICS IV Last administered on 09/24/18at 06:06; Admin Dose 20 MG; Start 09/18/18 at 18:00 Hydralazine HCl (Apresoline) 10 mg Q8 PO Last administered on 09/24/18at 06:07; Admin Dose 10 MG; Start 09/18/18 at 14:00 Levothyroxine Sodium (Synthroid) 125 mcg DAILY@06 PO Last administered on 09/24/18at 06:07; Admin Dose 125 MCG; Start 09/20/18 at 06:00 Docusate Sodium (Colace) 100 mg BID PO Last administered on 09/24/18at 08:15; Admin Dose 100 MG; Start 09/21/18 at 21:00 Bisacodyl (Dulcolax) 10 mg DAILY PRN PO CONSTIPATION; Start 09/21/18 at 14:30 Assessment/Plan Hospital Course (Demo Recall) 1.CHF-systolic acute on chronic - better fluid status - con't to keep euvolemic. 2. Cardiomyopathy-EF 25% by echo 02/12 - on meds, ICD in place 3.HTN - well maintained now 4.H/O ICD - site well healed - checked in the office 5.h/o cad s/p prior stent-Neg Lexiscan for ischemia 04/15 - no intervention nee ded 6.copd - better now 7.SOB 8.Renal failure - cr 1.69 - stable VALE TURCIOS MD Sep 24, 2018 10:12
[2018-09-24 11:18] VITALS: BP 99/56; PULSE 63; RESP 18
--- NOTE | 2018-09-24 13:47 | CONS ---
Assessment/Plan Assessment/Plan Assessment/Plan (Daily) 1. acute kidney injury on CKD III due to prerenal azotemia + hemodynamics 2. Hx of Chronic right [employer] territory infarct 3. H/o Myelodysplastic syndrome 4.H/o CAD with previous stent placement 5. H/o Ischemic Cardiomyopathy s/p AICD placement 6. H/o COPD 7. H/o DM II 8. H/o Hypothyroidism 9. 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 S/p Aortic valve replacement in 2015 11. H/o BPH 12. Anemia- Hgb 12.3 ; stable Plan : continue Lasix 20mg IV BID- will change to PO lasix tomorrow - BUN/Cr trended down to 35/1.69- no labs today to review yet Renal US showed Normal kidneys Enlarged heterogeneous prostate Avoid nephrotoxic medications, renally dose all abx Flomax 0.4 mg po daily, PSA 1.26 will follow up Consultation Date/Type/Reason Admit Date/Time Sep 18, 2018 at 13:39 Initial Consult Date 09/16/18 Type of Consult NEPHROLOGY Requesting Provider: JOS FOSTER MD Date/Time of Note DATE: 09/24/18 TIME: 13:47 Exam/Review of Systems Exam Vitals Vital Signs Date Temp Pulse Resp B/P (MAP) Pulse Ox O2 O2 Flow FiO2 Time Delivery Rate 09/24/18 98.6 63 18 99/56 (70) 94 11:18 09/24/18 21 10:00 09/22/18 Room Air 04:00 Intake and Output 09/23/18 09/23/18 09/24/18 1515:00 23:00 07:00 IntakeIntake Total 300 ml 500 ml 60 ml OutputOutput Total 280 ml 200 ml 950 ml BalanceBalance 20 ml 300 ml -890 ml Results Result Diagram: 09/20/18 0558 09/22/18 0637 Results 24hrs Laboratory Tests Test 09/23/18 17:20 09/23/18 21:17 09/24/18 08:04 09/24/18 12:39 Bedside Glucose 128 118 110 131 Medications Medication Current Medications Levalbuterol (Xopenex Neb) 0.63 mg Q6H RESP THERAPY HHN Last administered on 09/24/18at 10:00; Admin Dose 0.63 MG; Start 09/16/18 at 20:00 Acetaminophen (Tylenol Tab) 500 mg DAILY PO Last administered on 09/24/18 08:15; Admin Dose 500 MG; Start 09/17/18 at 09:00 Allopurinol (Zyloprim) 100 mg DAILY PO Last administered on 09/24/18 08:15; Admin Dose 100 MG; Start 09/17/18 at 09:00 Aripiprazole (Abilify) 5 mg DAILY PO Last administered on 09/24/18 08:15; Admin Dose 5 MG; Start 09/17/18 at 09:00 Aspirin (Halfprin) 81 mg DAILY PO Last administered on 09/24/18 08:15; Admin Dose 81 MG; Start 09/17/18 at 09:00 Atorvastatin Calcium (Lipitor) 80 mg QHS PO Last administered on 09/23/18 21:13; Admin Dose 80 MG; Start 09/16/18 at 21:00 Carvedilol (Coreg) 3.125 mg BID PO Last administered on 09/24/18 08:16; Admin Dose 3.125 MG; Start 09/16/18 at 21:00 Cyanocobalamin (Vitamin B12) 1,000 mcg DAILY PO Last administered on 09/24/18 08:15; Admin Dose 1,000 MCG; Start 09/17/18 at 09:00 Glimepiride (Amaryl) 2 mg WITH BREAKFAST PO Last administered on 09/24/18 08:16; Admin Dose 2 MG; Start 09/17/18 at 07:55 Pantoprazole (Protonix Tab) 40 mg DAILY PO Last administered on 09/24/18 08:15; Admin Dose 40 MG; Start 09/17/18 at 09:00 Miscellaneous Information 1 ea NOTE XX ; Start 09/16/18 at 19:30 Glucose (Glutose) 15 gm Q15M PRN PO DECREASED GLUCOSE; Start 09/16/18 at 19:30 Glucose (Glutose) 22.5 gm Q15M PRN PO DECREASED GLUCOSE; Start 09/16/18 at 19:30 Dextrose (D50w Syringe) 25 ml Q15M PRN IV DECREASED GLUCOSE; Start 09/16/18 at 19:30 Dextrose (D50w Syringe) 50 ml Q15M PRN IV DECREASED GLUCOSE; Start 09/16/18 at 19:30 Glucagon (Glucagen) 1 mg Q15M PRN IM DECREASED GLUCOSE; Start 09/16/18 at 19:30 Glucose (Glutose) 15 gm Q15M PRN BUCCAL DECREASED GLUCOSE; Start 09/16/18 at 19:30 Insulin Aspart (Novolog Insulin Pen) NOVOLOG *MILD* ALGORITHM WITH MEALS BE DTIME SC Last administered on 09/23/18 12:43; Admin Dose 2 UNIT; Start 09/17/18 at 08:30 Tamsulosin HCl (Flomax) 0.4 mg DAILY PO Last administered on 09/24/18 08:15; Admin Dose 0.4 MG; Start 09/18/18 at 09:00 Furosemide (Lasix) 20 mg BID DIURETICS IV Last administered on 09/24/18 06:06; Admin Dose 20 MG; Start 09/18/18 at 18:00 Hydralazine HCl (Apresoline) 10 mg Q8 PO Last administered on 09/24/18 06:07; Admin Dose 10 MG; Start 09/18/18 at 14:00 Levothyroxine Sodium (Synthroid) 125 mcg DAILY@06 PO Last administered on 09/24/18 06:07; Admin Dose 125 MCG; Start 09/20/18 at 06:00 Docusate Sodium (Colace) 100 mg BID PO Last administered on 09/24/18 08:15; Admin Dose 100 MG; Start 09/21/18 at 21:00 Bisacodyl (Dulcolax) 10 mg DAILY PRN PO CONSTIPATION; Start 09/21/18 at 14:30 MIHAI JOSEPH MD Sep 24, 2018 13:47
--- NOTE | 2018-09-24 14:25 | PN ---
Date/Time of Note Date/Time of Note DATE: 09/24/18 TIME: 14:24 Assessment/Plan VTE Prophylaxis Risk score (from Ns)>0 risk: 4 SCD applied (from Ns): Yes Pharmacological prophylaxis: LMWH Lines/Catheters IV [facility] Urinary Cath still in place: No Assessment/Plan Hospital Course -Dizziness, hypotension. Telemetry monitoring. Continue digoxin and Coreg, cardiac enzymes are negative x3. -Ischemic cardiomyopathy with ejection fraction of 25%. Dr. Choudhury is following in in cardiology consultation. -Acute kidney injury on chronic kidney disease stage III, continue to monitor BUN and creatinine. Dr. Novak is following in nephrology consultation -Hx of ICD placement for symptomatic bradycardia. -Coronary artery disease with history of stent placement. Continue aspirin. -Status post transcatheter aortic valve replacement in 2016. -Chronic obstructive pulmonary disease. -Diabetes mellitus -Hypothyroidism, continue levothyroxine at 125 mcg daily. -Hx of Chronic right ENVIRONMENTAL ADVISOR territory infarct Result Diagram: 09/20/18 0558 09/22/18 0637 Results 24hrs Laboratory Tests Test 09/23/18 17:20 09/23/18 21:17 09/24/18 08:04 09/24/18 12:39 Bedside Glucose 128 118 110 131 Subjective 24 Hr Interval Summary Free Text/Dictation Patient has no specific complaints Exam/Review of Systems Exam Vitals Vital Signs Date Temp Pulse Resp B/P (MAP) Pulse Ox O2 O2 Flow FiO2 Time Delivery Rate 09/24/18 98.6 63 18 99/56 (70) 94 11:18 09/24/18 21 10:00 09/22/18 Room Air 04:00 Intake and Output 09/23/18 09/23/18 09/24/18 1515:00 23:00 07:00 IntakeIntake Total 300 ml 500 ml 60 ml OutputOutput Total 280 ml 200 ml 950 ml BalanceBalance 20 ml 300 ml -890 ml Constitutional: well developed Head: normocephalic, atraumatic Neck: supple Respiratory: diminished breath sounds Cardiovascular: regular rate and rhythm Gastrointestinal: soft, non-tender Extremities: normal pulses Results Results 24hrs Laboratory Tests Test 09/23/18 17:20 09/23/18 21:17 09/24/18 08:04 09/24/18 12:39 Bedside Glucose 128 118 110 131 Medications Medication Current Medications Levalbuterol (Xopenex Neb) 0.63 mg Q6H RESP THERAPY HHN Last administered on 09/24/18 10:00; Admin Dose 0.63 MG; Start 09/16/18 at 20:00 Acetaminophen (Tylenol Tab) 500 mg DAILY PO Last administered on 09/24/18 08:15; Admin Dose 500 MG; Start 09/17/18 at 09:00 Allopurinol (Zyloprim) 100 mg DAILY PO Last administered on 09/24/18 08:15; Admin Dose 100 MG; Start 09/17/18 at 09:00 Aripiprazole (Abilify) 5 mg DAILY PO Last administered on 09/24/18 08:15; Admin Dose 5 MG; Start 09/17/18 at 09:00 Aspirin (Halfprin) 81 mg DAILY PO Last administered on 09/24/18 08:15; Admin Dose 81 MG; Start 09/17/18 at 09:00 Atorvastatin Calcium (Lipitor) 80 mg QHS PO Last administered on 09/23/18 21:13; Admin Dose 80 MG; Start 09/16/18 at 21:00 Carvedilol (Coreg) 3.125 mg BID PO Last administered on 09/24/18 08:16; Admin Dose 3.125 MG; Start 09/16/18 at 21:00 Cyanocobalamin (Vitamin B12) 1,000 mcg DAILY PO Last administered on 09/24/18 08:15; Admin Dose 1,000 MCG; Start 09/17/18 at 09:00 Glimepiride (Amaryl) 2 mg WITH BREAKFAST PO Last administered on 09/24/18 08:16; Admin Dose 2 MG; Start 09/17/18 at 07:55 Pantoprazole (Protonix Tab) 40 mg DAILY PO Last administered on 09/24/18 08:15; Admin Dose 40 MG; Start 09/17/18 at 09:00 Miscellaneous Information 1 ea NOTE XX ; Start 09/16/18 at 19:30 Glucose (Glutose) 15 gm Q15M PRN PO DECREASED GLUCOSE; Start 09/16/18 at 19:30 Glucose (Glutose) 22.5 gm Q15M PRN PO DECREASED GLUCOSE; Start 09/16/18 at 19:30 Dextrose (D50w Syringe) 25 ml Q15M PRN IV DECREASED GLUCOSE; Start 09/16/18 at 19:30 Dextrose (D50w Syringe) 50 ml Q15M PRN IV DECREASED GLUCOSE; Start 09/16/18 at 19:30 Glucagon (Glucagen) 1 mg Q15M PRN IM DECREASED GLUCOSE; Start 09/16/18 at 19:30 Glucose (Glutose) 15 gm Q15M PRN BUCCAL DECREASED GLUCOSE; Start 09/16/18 at 19:30 Insulin Aspart (Novolog Insulin Pen) NOVOLOG *MILD* ALGORITHM WITH MEALS BEDTIME SC Last administered on 09/23/18 12:43; Admin Dose 2 UNIT; Start 09/17/18 at 08:30 Tamsulosin HCl (Flomax) 0.4 mg DAILY PO Last administered on 09/24/18 08:15; Admin Dose 0.4 MG; Start 09/18/18 at 09:00 Furosemide (Lasix) 20 mg BID DIURETICS IV Last administered on 09/24/18 06:06; Admin Dose 20 MG; Start 09/18/18 at 18:00 Hydralazine HCl (Apresoline) 10 mg Q8 PO Last administered on 09/24/18 06:07; Admin Dose 10 MG; Start 09/18/18 at 14:00 Levothyroxine Sodium (Synthroid) 125 mcg DAILY@06 PO Last administered on 09/24/18 06:07; Admin Dose 125 MCG; Start 09/20/18 at 06:00 Docusate Sodium (Colace) 100 mg BID PO Last administered on 09/24/18 08:15; Admin Dose 100 MG; Start 09/21/18 at 21:00 Bisacodyl (Dulcolax) 10 mg DAILY PRN PO CONSTIPATION; Start 09/21/18 at 14:30 DAMIR LATIF Sep 24, 2018 14:25
[2018-09-24 15:16] VITALS: BP 101/66; PULSE 66; RESP 17
[2018-09-24 20:00] VITALS: BP 106/55; PULSE 19; RESP 19
[2018-09-24] MEDS: ATORVASTATIN 80 MG TAB PO SCH (21:15)
[2018-09-24 23:58] VITALS: BP 108/52; PULSE 19; RESP 19
[2018-09-25] VITALS (7 sets, daily range): BP systolic 90–109; BP diastolic 50–59; PULSE 18–69; RESP 18–20
[2018-09-25] MEDS: LEVALBUTEROL (NEB) 0.63 MG/3 ML AMP HHN SCH ×4 (02:01→20:21)
[2018-09-25] MEDS: LEVOTHYROXINE 125 MCG TAB PO SCH (06:12)
[2018-09-25] MEDS: FUROSEMIDE 20 MG INJ IV SCH (06:13)
[2018-09-25] MEDS: INSULIN ASPART [NOVOLOG] 3 ML PEN SC SCH ×4 (07:55→21:00)
[2018-09-25] MEDS: PANTOPRAZOLE (EC) 40 MG TAB PO SCH (08:07)
[2018-09-25] MEDS: ALLOPURINOL 100 MG TAB PO SCH (08:07)
[2018-09-25] MEDS: ARIPIPRAZOLE 5 MG TAB PO SCH (08:07)
[2018-09-25] MEDS: GLIMEPIRIDE 2 MG TAB PO SCH (08:07)
[2018-09-25] MEDS: TAMSULOSIN (SR) 0.4 MG CAP PO SCH (08:08)
[2018-09-25] MEDS: ASPIRIN (EC) 81 MG TAB PO SCH (08:08)
[2018-09-25] MEDS: DOCUSATE SODIUM 100 MG CAP PO SCH ×2 (08:08→21:32)
[2018-09-25] MEDS: ACETAMINOPHEN 500 MG TAB PO SCH (08:08)
[2018-09-25] MEDS: CYANOCOBALAMIN 500 MCG TAB PO SCH (08:08)
--- NOTE | 2018-09-25 10:00 | PN ---
Date/Time of Note Date/Time of Note DATE: 09/25/18 TIME: 10:00 Assessment/Plan VTE Prophylaxis Risk score (from Ns)>0 risk: 4 SCD applied (from Ns): Yes Pharmacological prophylaxis: LMWH Lines/Catheters IV Catheter Type (from [facility]): Saline Lock Urinary Cath still in place: No Assessment/Plan Hospital Course -Dizziness, hypotension. Telemetry monitoring. Continue digoxin and Coreg, cardiac enzymes are negative x3. -Ischemic cardiomyopathy with ejection fraction of 25%. Dr. Choudhury is following in in cardiology consultation. -Acute kidney injury on chronic kidney disease stage III, continue to monitor BUN and creatinine. Dr. Novak is following in nephrology consultation -Hx of ICD placement for symptomatic bradycardia. -Coronary artery disease with history of stent placement. Continue aspirin. -Status post transcatheter aortic valve replacement in 2016. -Chronic obstructive pulmonary disease. -Diabetes mellitus -Hypothyroidism, continue levothyroxine at 125 mcg daily. -Hx of Chronic right SUPERVISOR territory infarct Result Diagram: 09/22/18 0637 Results 24hrs Laboratory Tests Test 09/24/18 12:39 09/24/18 17:27 09/24/18 21:14 09/25/18 07:44 Bedside Glucose 131 136 158 123 Subjective 24 Hr Interval Summary Free Text/Dictation Patient has no complaints Exam/Review of Systems Exam Vitals Vital Signs Date Temp Pulse Resp B/P (MAP) Pulse Ox O2 O2 Flow FiO2 Time Delivery Rate 09/25/18 97.6 61 19 109/59 96 07:09 (76) 09/25/18 21 02:01 09/22/18 Room Air 04:00 Intake and Output 09/24/18 09/24/18 09/25/18 1515:00 23:00 07:00 IntakeIntake Total 500 ml 200 ml 100 ml OutputOutput Total 200 ml 600 ml 800 ml BalanceBalance 300 ml -400 ml -700 ml Constitutional: well developed Head: normocephalic, atraumatic Neck: supple Respiratory: diminished breath sounds Cardiovascular: regular rate and rhythm Gastrointestinal: soft, non-tender Extremities: normal pulses Results Results 24hrs Laboratory Tests Test 09/24/18 12:39 09/24/18 17:27 09/24/18 21:14 09/25/18 07:44 Bedside Glucose 131 136 158 123 Medications Medication Current Medications Levalbuterol (Xopenex Neb) 0.63 mg Q6H RESP THERAPY HHN Last administered on 09/25/18 02:01; Admin Dose 0.63 MG; Start 09/16/18 at 20:00 Acetaminophen (Tylenol Tab) 500 mg DAILY PO Last administered on 09/25/18 08:08; Admin Dose 500 MG; Start 09/17/18 at 09:00 Allopurinol (Zyloprim) 100 mg DAILY PO Last administered on 09/25/18 08:07; Admin Dose 100 MG; Start 09/17/18 at 09:00 Aripiprazole (Abilify) 5 mg DAILY PO Last administered on 09/25/18 08:07; Admin Dose 5 MG; Start 09/17/18 at 09:00 Aspirin (Halfprin) 81 mg DAILY PO Last administered on 09/25/18 08:08; Admin Dose 81 MG; Start 09/17/18 at 09:00 Atorvastatin Calcium (Lipitor) 80 mg QHS PO Last administered on 09/24/18 21:15; Admin Dose 80 MG; Start 09/16/18 at 21:00 Carvedilol (Coreg) 3.125 mg BID PO Last administered on 09/25/18 08:08; Admin Dose 3.125 MG; Start 09/16/18 at 21:00 Cyanocobalamin (Vitamin B12) 1,000 mcg DAILY PO Last administered on 09/25/18 08:08; Admin Dose 1,000 MCG; Start 09/17/18 at 09:00 Glimepiride (Amaryl) 2 mg WITH BREAKFAST PO Last administered on 09/25/18 08:07; Admin Dose 2 MG; Start 09/17/18 at 07:55 Pantoprazole (Protonix Tab) 40 mg DAILY PO Last administered on 09/25/18 08:07; Admin Dose 40 MG; Start 09/17/18 at 09:00 Miscellaneous Information 1 ea NOTE XX ; Start 09/16/18 at 19:30 Glucose (Glutose) 15 gm Q15M PRN PO DECREASED GLUCOSE; Start 09/16/18 at 19:30 Glucose (Glutose) 22.5 gm Q15M PRN PO DECREASED GLUCOSE; Start 09/16/18 at 19:30 Dextrose (D50w Syringe) 25 ml Q15M PRN IV DECREASED GLUCOSE; Start 09/16/18 at 19:30 Dextrose (D50w Syringe) 50 ml Q15M PRN IV DECREASED GLUCOSE; Start 09/16/18 at 19:30 Glucagon (Glucagen) 1 mg Q15M PRN IM DECREASED GLUCOSE; Start 09/16/18 at 19:30 Glucose (Glutose) 15 gm Q15M PRN BUCCAL DECREASED GLUCOSE; Start 09/16/18 at 19:30 Insulin Aspart (Novolog Insulin Pen) NOVOLOG *MILD* ALGORITHM WITH MEALS BEDTI ME SC Last administered on 09/23/18at 12:43; Admin Dose 2 UNIT; Start 09/17/18 at 08:30 Tamsulosin HCl (Flomax) 0.4 mg DAILY PO Last administered on 09/25/18at 08:08; Admin Dose 0.4 MG; Start 09/18/18 at 09:00 Furosemide (Lasix) 20 mg BID DIURETICS IV Last administered on 09/25/18at 06:13; Admin Dose 20 MG; Start 09/18/18 at 18:00 Hydralazine HCl (Apresoline) 10 mg Q8 PO Last administered on 09/25/18at 06:12; Admin Dose 10 MG; Start 09/18/18 at 14:00 Levothyroxine Sodium (Synthroid) 125 mcg DAILY@06 PO Last administered on 09/25/18at 06:12; Admin Dose 125 MCG; Start 09/20/18 at 06:00 Docusate Sodium (Colace) 100 mg BID PO Last administered on 09/25/18at 08:08; Admin Dose 100 MG; Start 09/21/18 at 21:00 Bisacodyl (Dulcolax) 10 mg DAILY PRN PO CONSTIPATION; Start 09/21/18 at 14:30 DAMIR LATIF Sep 25, 2018 10:00
--- NOTE | 2018-09-25 10:08 | CONS ---
Assessment/Plan Assessment/Plan Assessment/Plan (Daily) 1. acute kidney injury on CKD III due to prerenal azotemia + hemodynamics 2. Hx of Chronic right DIRECTOR COMMUNICATIONS territory infarct 3. H/o Myelodysplastic syndrome 4.H/o CAD with previous stent placement 5. H/o Ischemic Cardiomyopathy s/p AICD placement 6. H/o COPD 7. H/o DM II 8. H/o Hypothyroidism 9. 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 S/p Aortic valve replacement in 2015 11. H/o BPH 12. Anemia- Hgb 12.3 ; stable Plan : Lasix 20mg pO BID - BUN/Cr trended down to 35/1.69- no labs today to review yet Renal US showed Normal kidneys Enlarged heterogeneous prostate Avoid nephrotoxic medications, renally dose all abx Flomax 0.4 mg po daily, PSA 1.26 will follow up Consultation Date/Type/Reason Admit Date/Time Sep 18, 2018 at 13:39 Initial Consult Date 09/16/18 Type of Consult NEPHROLOGY Requesting Provider: JOS FOSTER MD Date/Time of Note DATE: 09/25/18 TIME: 10:08 Exam/Review of Systems Exam Vitals Vital Signs Date Temp Pulse Resp B/P (MAP) Pulse Ox O2 O2 Flow FiO2 Time Delivery Rate 09/25/18 97.6 61 19 109/59 96 07:09 (76) 09/25/18 21 02:01 09/22/18 Room Air 04:00 Intake and Output 09/24/18 09/24/18 09/25/18 1515:00 23:00 07:00 IntakeIntake Total 500 ml 200 ml 100 ml OutputOutput Total 200 ml 600 ml 800 ml BalanceBalance 300 ml -400 ml -700 ml Exam Constitutional: alert, oriented, well developed Respiratory: clear to auscultation Cardiovascular: nl pulses, other (S1S2) Gastrointestinal: soft, non-tender Musculoskeletal: nl extremities to inspection Skin: other (no rash noted) Results Result Diagram: 09/22/18 0637 Results 24hrs Laboratory Tests Test 09/24/18 12:39 09/24/18 17:27 09/24/18 21:14 09/25/18 07:44 Bedside Glucose 131 136 158 123 Medications Medication Current Medications Levalbuterol (Xopenex Neb) 0.63 mg Q6H RESP THERAPY HHN Last administered on 09/25/18 02:01; Admin Dose 0.63 MG; Start 09/16/18 at 20:00 Acetaminophen (Tylenol Tab) 500 mg DAILY PO Last administered on 09/25/18 08:08; Admin Dose 500 MG; Start 09/17/18 at 09:00 Allopurinol (Zyloprim) 100 mg DAILY PO Last administered on 09/25/18 08:07; Admin Dose 100 MG; Start 09/17/18 at 09:00 Aripiprazole (Abilify) 5 mg DAILY PO Last administered on 09/25/18 08:07; Admin Dose 5 MG; Start 09/17/18 at 09:00 Aspirin (Halfprin) 81 mg DAILY PO Last administered on 09/25/18 08:08; Admin Dose 81 MG; Start 09/17/18 at 09:00 Atorvastatin Calcium (Lipitor) 80 mg QHS PO Last administered on 09/24/18 21:15; Admin Dose 80 MG; Start 09/16/18 at 21:00 Carvedilol (Coreg) 3.125 mg BID PO Last administered on 09/25/18 08:08; Admin Dose 3.125 MG; Start 09/16/18 at 21:00 Cyanocobalamin (Vitamin B12) 1,000 mcg DAILY PO Last administered on 09/25/18 08:08; Admin Dose 1,000 MCG; Start 09/17/18 at 09:00 Glimepiride (Amaryl) 2 mg WITH BREAKFAST PO Last administered on 09/25/18 08:07; Admin Dose 2 MG; Start 09/17/18 at 07:55 Pantoprazole (Protonix Tab) 40 mg DAILY PO Last administered on 09/25/18 08:07; Admin Dose 40 MG; Start 09/17/18 at 09:00 Miscellaneous Information 1 ea NOTE XX ; Start 09/16/18 at 19:30 Glucose (Glutose) 15 gm Q15M PRN PO DECREASED GLUCOSE; Start 09/16/18 at 19:30 Glucose (Glutose) 22.5 gm Q15M PRN PO DECREASED GLUCOSE; Start 09/16/18 at 19:30 Dextrose (D50w Syringe) 25 ml Q15M PRN IV DECREASED GLUCOSE; Start 09/16/18 at 19:30 Dextrose (D50w Syringe) 50 ml Q15M PRN IV DECREASED GLUCOSE; Start 09/16/18 at 19:30 Glucagon (Glucagen) 1 mg Q15M PRN IM DECREASED GLUCOSE; Start 09/16/18 at 19:30 Glucose (Glutose) 15 gm Q15M PRN BUCCAL DECREASED GLUCOSE; Start 09/16/18 at 19:30 Insulin Aspart (Novolog Insulin Pen) NOVOLOG *MILD* ALGORITHM WITH MEALS BEDTIME SC Last administered on 09/23/18at 12:43; Admin Dose 2 UNIT; Start 09/17/18 at 08:30 Tamsulosin HCl (Flomax) 0.4 mg DAILY PO Last administered on 09/25/18 08:08; Admin Dose 0.4 MG; Start 09/18/18 at 09:00 Furosemide (Lasix) 20 mg BID DIURETICS IV Last administered on 09/25/18at 06:13; Admin Dose 20 MG; Start 09/18/18 at 18:00 Hydralazine HCl (Apresoline) 10 mg Q8 PO Last administered on 09/25/18at 06:12; Admin Dose 10 MG; Start 09/18/18 at 14:00 Levothyroxine Sodium (Synthroid) 125 mcg DAILY@06 PO Last administered on 09/25/18at 06:12; Admin Dose 125 MCG; Start 09/20/18 at 06:00 Docusate Sodium (Colace) 100 mg BID PO Last administered on 09/25/18 08:08; Admin Dose 100 MG; Start 09/21/18 at 21:00 Bisacodyl (Dulcolax) 10 mg DAILY PRN PO CONSTIPATION; Start 09/21/18 at 14:30 MIHAI JOSEPH MD Sep 25, 2018 10:08
--- NOTE | 2018-09-25 15:54 | CONS ---
Assessment/Plan Assessment/Plan Hospital Course (Demo Recall) IMP: 1.CHF-systolic acute on chronic 2. Cardiomyopathy-EF 25% by echo 02/12 3.HTN 4.H/O ICD 5.h/o cad s/p prior stent-Neg lexiscan for ischemia 04/15 6.copd 7.SOB 8.Renal failure Recc: -Tele -serial ecg's -Contineu coreg and low dose hydralazine afterload reduction as tolerated -Contineu asa -Contineu lasix diuresis but will change to po -ok for d/c planning from cardiac standpoint Consultation Date/Type/Reason Admit Date/Time Sep 18, 2018 at 13:39 Initial Consult Date 09/16/18 Type of Consult Cardiology Reason for Consultation cardiomyopathy Requesting Provider: JOS FOSTER MD Date/Time of Note DATE: 09/25/18 TIME: 15:51 Exam/Review of Systems Vital Signs Vitals Vital Signs Date Temp Pulse Resp B/P (MAP) Pulse Ox O2 O2 Flow FiO2 Time Delivery Rate 09/25/18 97.8 58 20 96/56 (69) 96 15:14 09/25/18 21 13:52 09/22/18 Room Air 04:00 Intake and Output 09/24/18 09/24/18 09/25/18 1515:00 23:00 07:00 IntakeIntake Total 500 ml 200 ml 100 ml OutputOutput Total 200 ml 600 ml 800 ml BalanceBalance 300 ml -400 ml -700 ml Exam Exam Review of Systems: CONSTITUTIONAL: No fevers, chills. PULMONARY: No sob CARDIOVASCULAR: No chest pain/palpitations GASTROINTESTINAL: No nausea/vomiting. GENITOURINARY: No hematuria/dysuria. MUSCULOSKELETAL: No myagias/arthalgias. PSYCHIATRIC: The patient denies depression. NEUROLOGIC: No weakness Constitutional: alert Psych: no complaints Head: normocephalic ENMT: mucosa pink and moist Neck: supple, jvd (9 cm water) Respiratory: clear to auscultation Cardiovascular: regular rate and rhythm Gastrointestinal: soft, non-tender Musculoskeletal: muscle weakness (mild generalized) Extremities: edema (none) Neurological: other (No focal deficits) Labs Result Diagram: 09/22/18 0637 Results 24hrs Laboratory Tests Test 09/24/18 17:27 09/24/18 21:14 09/25/18 07:44 09/25/18 11:42 Bedside Glucose 136 158 123 159 Medications Medications Current Medications Levalbuterol (Xopenex Neb) 0.63 mg Q6H RESP THERAPY HHN Last administered on 09/25/18 13:42; Admin Dose 0.63 MG; Start 09/16/18 at 20:00 Acetaminophen (Tylenol Tab) 500 mg DAILY PO Last administered on 09/25/18 08:08; Admin Dose 500 MG; Start 09/17/18 at 09:00 Allopurinol (Zyloprim) 100 mg DAILY PO Last administered on 09/25/18 08:07; Admin Dose 100 MG; Start 09/17/18 at 09:00 Aripiprazole (Abilify) 5 mg DAILY PO Last administered on 09/25/18 08:07; Admin Dose 5 MG; Start 09/17/18 at 09:00 Aspirin (Halfprin) 81 mg DAILY PO Last administered on 09/25/18 08:08; Admin Dose 81 MG; Start 09/17/18 at 09:00 Atorvastatin Calcium (Lipitor) 80 mg QHS PO Last administered on 09/24/18 21:15; Admin Dose 80 MG; Start 09/16/18 at 21:00 Carvedilol (Coreg) 3.125 mg BID PO Last administered on 09/25/18 08:08; Admin Dose 3.125 MG; Start 09/16/18 at 21:00 Cyanocobalamin (Vitamin B12) 1,000 mcg DAILY PO Last administered on 09/25/18 08:08; Admin Dose 1,000 MCG; Start 09/17/18 at 09:00 Glimepiride (Amaryl) 2 mg WITH BREAKFAST PO Last administered on 09/25/18 08:07; Admin Dose 2 MG; Start 09/17/18 at 07:55 Pantoprazole (Protonix Tab) 40 mg DAILY PO Last administered on 09/25/18 08:07; Admin Dose 40 MG; Start 09/17/18 at 09:00 Miscellaneous Information 1 ea NOTE XX ; Start 09/16/18 at 19:30 Glucose (Glutose) 15 gm Q15M PRN PO DECREASED GLUCOSE; Start 09/16/18 at 19:30 Glucose (Glutose) 22.5 gm Q15M PRN PO DECREASED GLUCOSE; Start 09/16/18 at 19:30 Dextrose (D50w Syringe) 25 ml Q15M PRN IV DECREASED GLUCOSE; Start 09/16/18 at 19:30 Dextrose (D50w Syringe) 50 ml Q15M PRN IV DECREASED GLUCOSE; Start 09/16/18 at 19:30 Glucagon (Glucagen) 1 mg Q15M PRN IM DECREASED GLUCOSE; Start 09/16/18 at 19:30 Glucose (Glutose) 15 gm Q15M PRN BUCCAL DECREASED GLUCOSE; Start 09/16/18 at 19:30 Insulin Aspart (Novolog Insulin Pen) NOVOLOG *MILD* ALGORITHM WITH MEALS BEDTIME SC Last administered on 09/25/18 11:58; Admin Dose 1 UNIT; Start 09/17/18 at 08:30 Tamsulosin HCl (Flomax) 0.4 mg DAILY PO Last administered on 09/25/18 08:08; Admin Dose 0.4 MG; Start 09/18/18 at 09:00 Furosemide (Lasix) 20 mg BID DIURETICS IV Last administered on 09/25/18at 06:13; Admin Dose 20 MG; Start 09/18/18 at 18:00 Hydralazine HCl (Apresoline) 10 mg Q8 PO Last administered on 09/25/18 06:12; Admin Dose 10 MG; Start 09/18/18 at 14:00 Levothyroxine Sodium (Synthroid) 125 mcg DAILY@06 PO Last administered on 09/25/18 06:12; Admin Dose 125 MCG; Start 09/20/18 at 06:00 Docusate Sodium (Colace) 100 mg BID PO Last administered on 09/25/18 08:08; Admin Dose 100 MG; Start 09/21/18 at 21:00 Bisacodyl (Dulcolax) 10 mg DAILY PRN PO CONSTIPATION; Start 09/21/18 at 14:30 JACLYN RODRIGUEZ Sep 25, 2018 15:54
[2018-09-25] MEDS: FUROSEMIDE 20 MG TAB PO SCH (17:46)
[2018-09-25] MEDS: ATORVASTATIN 80 MG TAB PO SCH (21:32)
[2018-09-26] MEDS: LEVALBUTEROL (NEB) 0.63 MG/3 ML AMP HHN SCH (02:02)
[2018-09-26 03:57] VITALS: BP 108/57; PULSE 59; RESP 20
[2018-09-26] MEDS: LEVOTHYROXINE 125 MCG TAB PO SCH (06:44)
[2018-09-26] MEDS: FUROSEMIDE 20 MG TAB PO SCH ×2 (06:44→18:08)
[2018-09-26] MEDS: INSULIN ASPART [NOVOLOG] 3 ML PEN SC SCH ×3 (07:55→17:55)
[2018-09-26] MEDS: ARIPIPRAZOLE 5 MG TAB PO SCH (08:19)
[2018-09-26] MEDS: TAMSULOSIN (SR) 0.4 MG CAP PO SCH (08:19)
[2018-09-26] MEDS: GLIMEPIRIDE 2 MG TAB PO SCH (08:19)
[2018-09-26] MEDS: DOCUSATE SODIUM 100 MG CAP PO SCH (08:19)
[2018-09-26] MEDS: ASPIRIN (EC) 81 MG TAB PO SCH (08:20)
[2018-09-26] MEDS: PANTOPRAZOLE (EC) 40 MG TAB PO SCH (08:20)
[2018-09-26] MEDS: ACETAMINOPHEN 500 MG TAB PO SCH (08:20)
[2018-09-26] MEDS: CYANOCOBALAMIN 500 MCG TAB PO SCH (08:20)
[2018-09-26] MEDS: ALLOPURINOL 100 MG TAB PO SCH (08:20)
[2018-09-26 08:33] VITALS: BP 99/55; PULSE 60; RESP 18
[2018-09-26 11:21] VITALS: BP 101/58; PULSE 59; RESP 20
--- NOTE | 2018-09-26 12:56 | CONS ---
Assessment/Plan Assessment/Plan Assessment/Plan (Daily) 1. acute kidney injury on CKD III due to prerenal azotemia + hemodynamics 2. Hx of Chronic right CABLE RIGGER territory infarct 3. H/o Myelodysplastic syndrome 4.H/o CAD with previous stent placement 5. H/o Ischemic Cardiomyopathy s/p AICD placement 6. H/o COPD 7. H/o DM II 8. H/o Hypothyroidism 9. 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 S/p Aortic valve replacement in 2015 11. H/o BPH 12. Anemia- Hgb 12.3 ; stable Plan : Lasix 20mg pO BID Renal US showed Normal kidneys Enlarged heterogeneous prostate Avoid nephrotoxic medications, renally dose all abx Flomax 0.4 mg po daily, PSA 1.26 will follow up Consultation Date/Type/Reason Admit Date/Time Sep 18, 2018 at 13:39 Initial Consult Date 09/16/18 Type of Consult NEPHROLOGY Requesting Provider: JOS FOSTER MD Date/Time of Note DATE: 09/26/18 TIME: 12:55 Exam/Review of Systems Exam Vitals Vital Signs Date Temp Pulse Resp B/P (MAP) Pulse Ox O2 O2 Flow FiO2 Time Delivery Rate 09/26/18 98.0 59 20 101/58 95 Nasal 11:21 (72) Cannula 09/26/18 21 02:02 Intake and Output 09/25/18 09/25/18 09/26/18 1515:00 23:00 07:00 IntakeIntake Total 360 ml 100 ml OutputOutput Total 150 ml 350 ml 700 ml BalanceBalance -150 ml 10 ml -600 ml Results Result Diagram: 09/26/18 0556 09/26/18 0556 Results 24hrs Laboratory Tests Test 09/25/18 17:24 09/25/18 21:38 09/26/18 05:56 09/26/18 08:16 Bedside Glucose 102 128 103 White Blood Count 10.7 Red Blood Count 4.30 L Hemoglobin 12.3 L Hematocrit 38.7 L Mean Corpuscular 90.0 Volume Mean Corpuscular 28.6 L Hemoglobin Mean Corpuscular 31.8 L Hemoglobin Concent Red Cell Distribution 14.2 Width Platelet Count 204 Mean Platelet Volume 10.4 Immature Granulocytes 0.500 H % Neutrophils % 77.0 Lymphocytes % 12.8 L Monocytes % 8.1 Eosinophils % 1.3 Basophils % 0.3 Nucleated Red Blood 0.0 Cells % Immature Granulocytes 0.050 H # Neutrophils # 8.2 H Lymphocytes # 1.4 Monocytes # 0.9 Eosinophils # 0.1 Basophils # 0.0 Nucleated Red Blood 0.0 Cells # Sodium Level 137 Potassium Level 3.8 Chloride Level 97 Carbon Dioxide Level 29 Anion Gap 11 Blood Urea Nitrogen 43 H Creatinine 1.65 H Est Glomerular Filtrat Rate mL/min Glucose Level 88 Calcium Level 9.5 Magnesium Level 2.1 Test 09/26/18 12:21 Bedside Glucose 156 Medications Medication Current Medications Levalbuterol (Xopenex Neb) 0.63 mg Q6H RESP THERAPY HHN Last administered on 09/26/18 02:02; Admin Dose 0.63 MG; Start 09/16/18 at 20:00 Acetaminophen (Tylenol Tab) 500 mg DAILY PO Last administered on 09/26/18 08:20; Admin Dose 500 MG; Start 09/17/18 at 09:00 Allopurinol (Zyloprim) 100 mg DAILY PO Last administered on 09/26/18 08:20; Admin Dose 100 MG; Start 09/17/18 at 09:00 Aripiprazole (Abilify) 5 mg DAILY PO Last administered on 09/26/18 08:19; Admin Dose 5 MG; Start 09/17/18 at 09:00 Aspirin (Halfprin) 81 mg DAILY PO Last administered on 09/26/18 08:20; Admin Dose 81 MG; Start 09/17/18 at 09:00 Atorvastatin Calcium (Lipitor) 80 mg QHS PO Last administered on 09/25/18 21:32; Admin Dose 80 MG; Start 09/16/18 at 21:00 Carvedilol (Coreg) 3.125 mg BID PO Last administered on 09/26/18 08:19; Admin Dose 3.125 MG; Start 09/16/18 at 21:00 Cyanocobalamin (Vitamin B12) 1,000 mcg DAILY PO Last administered on 09/26/18 08:20; Admin Dose 1,000 MCG; Start 09/17/18 at 09:00 Glimepiride (Amaryl) 2 mg WITH BREAKFAST PO Last administered on 09/26/18 08:19; Admin Dose 2 MG; Start 09/17/18 at 07:55 Pantoprazole (Protonix Tab) 40 mg DAILY PO Last administered on 09/26/18 08:20; Admin Dose 40 MG; Start 09/17/18 at 09:00 Miscellaneous Information 1 ea NOTE XX ; Start 09/16/18 at 19:30 Glucose (Glutose) 15 gm Q15M PRN PO DECREASED GLUCOSE; Start 09/16/18 at 19:30 Glucose (Glutose) 22.5 gm Q15M PRN PO DECREASED GLUCOSE; Start 09/16/18 at 19:30 Dextrose (D50w Syringe) 25 ml Q15M PRN IV DECREASED GLUCOSE; Start 09/16/18 at 19:30 Dextrose (D50w Syringe) 50 ml Q15M PRN IV DECREASED GLUCOSE; Start 09/16/18 at 19:30 Glucagon (Glucagen) 1 mg Q15M PRN IM DECREASED GLUCOSE; Start 09/16/18 at 19:30 Glucose (Glutose) 15 gm Q15M PRN BUCCAL DECREASED GLUCOSE; Start 09/16/18 at 19:30 Insulin Aspart (Novolog Insulin Pen) NOVOLOG *MILD* ALGORITHM WITH MEALS BEDTIME SC Last administered on 09/26/18at 12:25; Admin Dose 1 UNIT; Start 09/17/18 at 08:30 Tamsulosin HCl (Flomax) 0.4 mg DAILY PO Last administered on 09/26/18at 08:19; Admin Dose 0.4 MG; Start 09/18/18 at 09:00 Hydralazine HCl (Apresoline) 10 mg Q8 PO Last administered on 09/26/18at 06:44; Admin Dose 10 MG; Start 09/18/18 at 14:00 Levothyroxine Sodium (Synthroid) 125 mcg DAILY@06 PO Last administered on 09/26/18at 06:44; Admin Dose 125 MCG; Start 09/20/18 at 06:00 Docusate Sodium (Colace) 100 mg BID PO Last administered on 09/26/18at 08:19; Admin Dose 100 MG; Start 09/21/18 at 21:00 Bisacodyl (Dulcolax) 10 mg DAILY PRN PO CONSTIPATION; Start 09/21/18 at 14:30 Furosemide (Lasix) 20 mg BID DIURETICS PO Last administered on 09/26/18at 06:44; Admin Dose 20 MG; Start 09/25/18 at 18:00 MIHAI JOSEPH MD Sep 26, 2018 12:55
--- NOTE | 2018-09-26 12:59 | CONS ---
Assessment/Plan Assessment/Plan Hospital Course (Demo Recall) IMP: 1.CHF-systolic acute on chronic 2. Cardiomyopathy-EF 25% by echo 02/12 3.HTN 4.H/O ICD 5.h/o cad s/p prior stent-Neg lexiscan for ischemia 04/15 6.copd 7.SOB 8.Renal failure-overall improved Recc: -Tele -serial ecg's -Contineu coreg and low dose hydralazine afterload reduction as tolerated -Contineu asa -Contineu lasix diuresis now PO BID -ok for d/c planning from cardiac standpoint Consultation Date/Type/Reason Admit Date/Time Sep 18, 2018 at 13:39 Initial Consult Date 09/16/18 Type of Consult Cardiology Reason for Consultation CHF Requesting Provider: JOS FOSTER MD Date/Time of Note DATE: 09/26/18 TIME: 12:57 Exam/Review of Systems Vital Signs Vitals Vital Signs Date Temp Pulse Resp B/P (MAP) Pulse Ox O2 O2 Flow FiO2 Time Delivery Rate 09/26/18 98.0 59 20 101/58 95 Nasal 11:21 (72) Cannula 09/26/18 21 02:02 Intake and Output 09/25/18 09/25/18 09/26/18 1515:00 23:00 07:00 IntakeIntake Total 360 ml 100 ml OutputOutput Total 150 ml 350 ml 700 ml BalanceBalance -150 ml 10 ml -600 ml Exam Exam Review of Systems: CONSTITUTIONAL: No fevers, chills. PULMONARY: No sob CARDIOVASCULAR: No chest pain/palpitations GASTROINTESTINAL: No nausea/vomiting. GENITOURINARY: No hematuria/dysuria. MUSCULOSKELETAL: No myagias/arthalgias. PSYCHIATRIC: The patient denies depression. NEUROLOGIC: No weakness Constitutional: alert Psych: no complaints Head: normocephalic ENMT: mucosa pink and moist Neck: supple, jvd (9 cm water) Respiratory: diminished breath sounds (at bases/B) Cardiovascular: other (bradycardic, regular rhythm) Gastrointestinal: soft, non-tender Musculoskeletal: muscle tone Extremities: edema (none) Labs Result Diagram: 09/26/18 0556 09/26/18 0556 Results 24hrs Laboratory Tests Test 09/25/18 17:24 09/25/18 21:38 09/26/18 05:56 09/26/18 08:16 Bedside Glucose 102 128 103 White Blood Count 10.7 Red Blood Count 4.30 L Hemoglobin 12.3 L Hematocrit 38.7 L Mean Corpuscular 90.0 Volume Mean Corpuscular 28.6 L Hemoglobin Mean Corpuscular 31.8 L Hemoglobin Concent Red Cell Distribution 14.2 Width Platelet Count 204 Mean Platelet Volume 10.4 Immature Granulocytes 0.500 H % Neutrophils % 77.0 Lymphocytes % 12.8 L Monocytes % 8.1 Eosinophils % 1.3 Basophils % 0.3 Nucleated Red Blood 0.0 Cells % Immature Granulocytes 0.050 H # Neutrophils # 8.2 H Lymphocytes # 1.4 Monocytes # 0.9 Eosinophils # 0.1 Basophils # 0.0 Nucleated Red Blood 0.0 Cells # Sodium Level 137 Potassium Level 3.8 Chloride Level 97 Carbon Dioxide Level 29 Anion Gap 11 Blood Urea Nitrogen 43 H Creatinine 1.65 H Est Glomerular Filtrat Rate mL/min Glucose Level 88 Calcium Level 9.5 Magnesium Level 2.1 Test 09/26/18 12:21 Bedside Glucose 156 Medications Medications Current Medications Levalbuterol (Xopenex Neb) 0.63 mg Q6H RESP THERAPY HHN Last administered on 09/26/18at 02:02; Admin Dose 0.63 MG; Start 09/16/18 at 20:00 Acetaminophen (Tylenol Tab) 500 mg DAILY PO Last administered on 09/26/18 08:20; Admin Dose 500 MG; Start 09/17/18 at 09:00 Allopurinol (Zyloprim) 100 mg DAILY PO Last administered on 09/26/18 08:20; Admin Dose 100 MG; Start 09/17/18 at 09:00 Aripiprazole (Abilify) 5 mg DAILY PO Last administered on 09/26/18 08:19; Admin Dose 5 MG; Start 09/17/18 at 09:00 Aspirin (Halfprin) 81 mg DAILY PO Last administered on 09/26/18 08:20; Admin Dose 81 MG; Start 09/17/18 at 09:00 Atorvastatin Calcium (Lipitor) 80 mg QHS PO Last administered on 09/25/18 21:32; Admin Dose 80 MG; Start 09/16/18 at 21:00 Carvedilol (Coreg) 3.125 mg BID PO Last administered on 09/26/18 08:19; Admin Dose 3.125 MG; Start 09/16/18 at 21:00 Cyanocobalamin (Vitamin B12) 1,000 mcg DAILY PO Last administered on 09/26/18 08:20; Admin Dose 1,000 MCG; Start 09/17/18 at 09:00 Glimepiride (Amaryl) 2 mg WITH BREAKFAST PO Last administered on 09/26/18 08:19; Admin Dose 2 MG; Start 09/17/18 at 07:55 Pantoprazole (Protonix Tab) 40 mg DAILY PO Last administered on 09/26/18 08:20; Admin Dose 40 MG; Start 09/17/18 at 09:00 Miscellaneous Information 1 ea NOTE XX ; Start 09/16/18 at 19:30 Glucose (Glutose) 15 gm Q15M PRN PO DECREASED GLUCOSE; Start 09/16/18 at 19:30 Glucose (Glutose) 22.5 gm Q15M PRN PO DECREASED GLUCOSE; Start 09/16/18 at 19:30 Dextrose (D50w Syringe) 25 ml Q15M PRN IV DECREASED GLUCOSE; Start 09/16/18 at 19:30 Dextrose (D50w Syringe) 50 ml Q15M PRN IV DECREASED GLUCOSE; Start 09/16/18 at 19:30 Glucagon (Glucagen) 1 mg Q15M PRN IM DECREASED GLUCOSE; Start 09/16/18 at 19:30 Glucose (Glutose) 15 gm Q15M PRN BUCCAL DECREASED GLUCOSE; Start 09/16/18 at 19:30 Insulin Aspart (Novolog Insulin Pen) NOVOLOG *MILD* ALGORITHM WITH MEALS BEDTIME SC Last administered on 09/26/18at 12:25; Admin Dose 1 UNIT; Start 09/17/18 at 08:30 Tamsulosin HCl (Flomax) 0.4 mg DAILY PO Last administered on 09/26/18 08:19; Admin Dose 0.4 MG; Start 09/18/18 at 09:00 Hydralazine HCl (Apresoline) 10 mg Q8 PO Last administered on 09/26/18 06:44; Admin Dose 10 MG; Start 09/18/18 at 14:00 Levothyroxine Sodium (Synthroid) 125 mcg DAILY@06 PO Last administered on 09/26/18at 06:44; Admin Dose 125 MCG; Start 09/20/18 at 06:00 Docusate Sodium (Colace) 100 mg BID PO Last administered on 09/26/18at 08:19; Admin Dose 100 MG; Start 09/21/18 at 21:00 Bisacodyl (Dulcolax) 10 mg DAILY PRN PO CONSTIPATION; Start 09/21/18 at 14:30 Furosemide (Lasix) 20 mg BID DIURETICS PO Last administered on 09/26/18at 06:44; Admin Dose 20 MG; Start 09/25/18 at 18:00 JACLYN RODRIGUEZ Sep 26, 2018 12:59
--- NOTE | 2018-09-26 14:33 | DS ---
Date/Time of Note Date/Time of Note DATE: 09/26/18 TIME: 14:31 Discharge Summary Admission/Discharge Info Admit Date/Time Sep 18, 2018 at 13:39 Discharge Date/Time 09/26/18 Discharge Diagnosis -Dizziness, hypotension. Telemetry monitoring. Continue digoxin and Coreg, cardiac enzymes are negative x3. -Ischemic cardiomyopathy with ejection fraction of 25%. Dr. Choudhury is following in in cardiology consultation. -Acute kidney injury on chronic kidney disease stage III, continue to monitor BUN and creatinine. Dr. Novak is following in nephrology consultation -Hx of ICD placement for symptomatic bradycardia. -Coronary artery disease with history of stent placement. Continue aspirin. -Status post transcatheter aortic valve replacement in 2015. -Chronic obstructive pulmonary disease. -Diabetes mellitus -Hypothyroidism, continue levothyroxine at 125 mcg daily. -Hx of Chronic right TAKER OUT territory infarct Consults Cardiology Procedures none Hx of Present Illness Patient with hypertension, cardiomyopathy comes in with dizziness and hypotension. Hospital Course Patient with hypertension, cardiomyopathy comes in with dizziness and hypotension. Patient was ruled out for acute coronary syndrome. Patient was managed medically for his cardiac status. Once clinically stable, patient was d ischarged home. -Dizziness, hypotension. Telemetry monitoring. Continue digoxin and Coreg, cardiac enzymes are negative x3. -Ischemic cardiomyopathy with ejection fraction of 25%. Dr. Choudhury is following in in cardiology consultation. -Acute kidney injury on chronic kidney disease stage III, continue to monitor BUN and creatinine. Dr. Novak is following in nephrology consultation -Hx of ICD placement for symptomatic bradycardia. -Coronary artery disease with history of stent placement. Continue aspirin. -Status post transcatheter aortic valve replacement in 2015. -Chronic obstructive pulmonary disease. -Diabetes mellitus -Hypothyroidism, continue levothyroxine at 125 mcg daily. -Hx of Chronic right TAKER OUT territory infarct Home Meds Active Scripts Allopurinol* (Allopurinol*) 100 Mg Tablet, 100 MG PO DAILY for 30 Days, #30 TAB Prov:JOS FOSTER MD 02/13/18 Cyanocobalamin* (Vitamin B12*) 500 Mcg Tab, 1000 MCG PO DAILY for 30 Days, #30 TAB Prov:JOS FOSTER MD 02/13/18 Aspirin Delayed Release (Aspirin Delayed Release) 81 Mg Tablet.dr 81 MG PO DAILY for 30 Days, #30 Prov:JOS FOSTER MD 02/13/18 Reported Medications Aripiprazole (Aripiprazole) 5 Mg Tablet, 0.5 TAB ORAL DAILY 09/16/18 Lisinopril* (Lisinopril*) 2.5 Mg Tablet, 1 TAB ORAL DAILY 09/16/18 Acetaminophen* (Acetaminophen*) 500 MG Extra Strength Tablet, 500 MG PO DAILY, TAB 09/16/18 Lamotrigine* (Lamotrigine*) 100 Mg Tablet, 1 TAB ORAL BID 09/16/18 Digoxin* (Lanoxin*) 0.125 Mg Tablet, 0.125 MG PO DAILY, TAB 01/28/18 Glimepiride* (Glimepiride*) 2 Mg Tablet, 2 MG PO WITH BREAKFAST, TAB 01/28/18 Furosemide* (Lasix*) 20 Mg Tablet, 20 MG PO DAILY, TAB 01/28/18 Carvedilol* (Carvedilol*) 3.125 Mg Tablet, 3.125 MG PO BID, #60 TAB 01/28/18 Pantoprazole* (Protonix*) 40 Mg Tablet.dr, 40 MG PO DAILY, TAB 01/28/18 Levothyroxine Sodium* (Levoxyl*) 150 Mcg Tablet, 150 MCG PO BEFORE BREAKFAST, #30 TAB 01/28/18 Atorvastatin* (Atorvastatin*) 80 Mg Tablet, 80 MG PO QHS, #30 TAB 01/28/18 Primary Care Provider Jos Foster MD Pending Labs Laboratory Tests Test 09/25/18 17:24 09/25/18 21:38 09/26/18 05:56 09/26/18 08:16 Bedside 102 128 103 Glucose mg/dL (70-220) mg/dL (70-220) mg/dL (70-220) White Blood 10.7 Count 10^3/ul (4.8-1 0.8) Red Blood 4.30 Count 10^6/ul (4.70- 6.10) Hemoglobin 12.3 g/dl (14.0-18. 0) Hematocrit 38.7 % (42.0-52.0) Mean 90.0 Corpuscular fl (82.0-101.0 Volume ) Mean 28.6 Corpuscular pg (29.0-33.0) Hemoglobin Mean 31.8 Corpuscular g/dl (32.0-37. Hemoglobin Conc 0) ent Red Cell 14.2 Distribution % (11.5-14.5) Width Platelet Count 204 10^3/UL (140-4 15) Mean Platelet 10.4 Volume fl (7.4-10.4) Immature 0.500 Granulocytes % % (0.001-0.429 ) Neutrophils % 77.0 % (39.0-77.0) Lymphocytes % 12.8 % (15.0-51.0) Monocytes % 8.1 % (0.0-11.0) Eosinophils % 1.3 % (0.0-7.0) Basophils % 0.3 % (0.0-2.0) Nucleated Red 0.0 Blood Cells % /100WBC (0.0-0 .0) Immature 0.050 Granulocytes # 10^3/ul (0.0-0 .031) Neutrophils # 8.2 10^3/ul (1.6-7 .5) Lymphocytes # 1.4 10^3/ul (0.8-2 .9) Monocytes # 0.9 10^3/ul (0.3-0 .9) Eosinophils # 0.1 10^3/ul (0.0-0 .5) Basophils # 0.0 10^3/ul (0.0-0 .1) Nucleated Red 0.0 Blood Cells # 10^3/ul (0.0-0 .0) Sodium Level 137 mmol/L (135-14 4) Potassium 3.8 Level mmol/L (3.5-5. 1) Chloride Level 97 mmol/L (97-110 ) Carbon Dioxide 29 Level mmol/L (21-31) Anion Gap 11 (5-13) Blood Urea 43 Nitrogen mg/dl (7-20) Creatinine 1.65 mg/dl (0.61-1. 24) Est Glomerular mL/min (>60) Filtrat Rate mL/min Glucose Level 88 mg/dl (70-220) Calcium Level 9.5 mg/dl (8.4-10. 2) Magnesium 2.1 Level mg/dl (1.7-2.5 ) Test 09/26/18 12:21 Bedside 156 Glucose mg/dL (70-220) DAMIR LATIF Sep 26, 2018 14:33
[2018-09-26 15:42] VITALS: BP 105/59; PULSE 60; RESP 16
== END 2018-09-26 18:26 | disposition home or self-care (01) | DRG 291 ==
LOC: E/R 11:29 → TEL 14:48 → OBSVTOIN 09-18 13:39
PROVIDERS: ADMIT Internal Medicine; ATTEND Internal Medicine
DX: I13.0 Hypertensive heart and chronic kidney disease with heart failure and stage 1 through stage 4 chronic kidney disease, or unspecified chronic kidney disease (principal); I50.23 Acute on chronic systolic (congestive) heart failure; N17.9 Acute kidney failure, unspecified; I25.5 Ischemic cardiomyopathy; I48.91 Unspecified atrial fibrillation; D63.1 Anemia in chronic kidney disease; E87.70 Fluid overload, unspecified; E11.22 Type 2 diabetes mellitus with diabetic chronic kidney disease; E03.9 Hypothyroidism, unspecified; E78.5 Hyperlipidemia, unspecified; E11.21 Type 2 diabetes mellitus with diabetic nephropathy; F17.200 Nicotine dependence, unspecified, uncomplicated; I25.10 Atherosclerotic heart disease of native coronary artery without angina pectoris; J44.9 Chronic obstructive pulmonary disease, unspecified; N18.3 Chronic kidney disease, stage 3 (moderate); N40.0 Benign prostatic hyperplasia without lower urinary tract symptoms; Z95.810 Presence of automatic (implantable) cardiac defibrillator; Z95.2 Presence of prosthetic heart valve; Z86.73 Personal history of transient ischemic attack (TIA), and cerebral infarction without residual deficits; Z95.5 Presence of coronary angioplasty implant and graft; Z79.84 Long term (current) use of oral hypoglycemic drugs; Z79.82 Long term (current) use of aspirin
CPT/HCPCS: 36415; 70450; 71045; 76775; 80048; 80053; 80162; 81003; 82550; 82553; 82570; 82962; 83735; 84153; 84154; 84300; 84436; 84443; 84479; 84484; 84560; 85025; 85610; 85730; 89190; 93005; 94640; 94664; 97116; 97162; 97530; G0378; J1815; J1940; J7030; J7040

== ENCOUNTER 2018-10-02 17:40 | Inpatient (IN) | payer MEDICARE, OTHER ==
[~2018-10-02] VITALS: Ht 170.2 cm; Wt 83.4 kg
[~2018-10-02 17:40] MED LIST changes: -ALBU8.5H8 INH; -FER325 PO; -LAMO150T3 PO; -LEVO175T6 PO; -LISI-313 PO; -MECL-77 PO; -METR500T PO
[2018-10-02] MEDS ORDERED: SOD CHLORIDE 0.9% 500 ML IV ONE (20:00)
[2018-10-02] MEDS ORDERED: NACL 0.9% 3 ML SYG IV SCH (21:30)
[2018-10-02] MEDS ORDERED: ACETAMINOPHEN 325 MG TAB PO PRN (21:30)
[2018-10-02] MEDS ORDERED: ONDANSETRON 4 MG INJ IV PRN (21:30)
[2018-10-02] MEDS ORDERED: morphine 2 MG INJ IV PRN (21:30)
[2018-10-02 22:25] VITALS: BP 111/56; PULSE 55; RESP 18
[2018-10-02 22:30] VITALS: Ht 170.2 cm; Wt 83.4 kg
[2018-10-02] MEDS: SOD CHLORIDE 0.9% 1,000 ML IV SCH (22:43)
[2018-10-03] VITALS (9 sets, daily range): BP systolic 92–126; BP diastolic 50–87; PULSE 51–84; RESP 18–19
--- NOTE | 2018-10-03 00:08 | ERD ---
ER Documentation Chief Complaint Chief Complaint R881 fr home, nausea w/vomitting this am, dizziness HPI The patient is a 78-year-old male, presenting to the ER from home because of lightheadedness, dizziness, nausea but no vomiting for 1 week, decreased appetite. Denies syncope, near syncope, neck pain, chest pain, dyspnea, abdom inal pain, vomiting, dysuria. He does not drink, smokes socially He was admitted here recently on August 19, 2018 for similar symptoms Past medical history: CAD, diabetes mellitus, history of CVA, gout, dyslipidemia, ischemic cardiomyopathy with low EF of 25%, chronic kidney disease, COPD, hypothyroidism Past surgical history: AICD, aortic valve replacement, stent PCI ROS All systems reviewed and are negative except as per history of present illness. Medications Home Meds Reported Medications Furosemide* (Furosemide*) 20 Mg Tablet, 20 MG PO DAILY, #60 TAB 10/02/18 Cyanocobalamin (Vitamin B-12) (Vitamin B-12) 1,000 Mcg Capsule, 1000 MCG PO DAILY, CAP 10/02/18 Aripiprazole* (Abilify*) 5 Mg Tab, 5 MG PO DAILY, #30 TAB 10/02/18 Atorvastatin* (Atorvastatin*) 80 Mg Tablet, 80 MG PO QHS, #30 TAB 10/02/18 Lisinopril* (Lisinopril*) 2.5 Mg Tablet, 2.5 MG PO DAILY, #30 TAB 10/02/18 Levothyroxine Sodium* (Levothyroxine Sodium*) 150 Mcg Tablet, 150 MCG PO BEFORE BREAKFAST, #30 TAB 10/02/18 Allopurinol* (Allopurinol*) 100 Mg Tablet, 100 MG PO DAILY, TAB 10/02/18 Digoxin* (Digitek*) 125 Mcg Tablet, 0.125 MG PO DAILY, TAB 10/02/18 Carvedilol* (Carvedilol*) 3.125 Mg Tablet, 3.125 MG PO BID, #60 TAB 10/02/18 Pantoprazole* (Pantoprazole*) 40 Mg Tablet.dr, 40 MG PO AC BREAKFAST, TAB 10/02/18 Lamotrigine* (Lamotrigine*) 100 Mg Tablet, 100 MG PO BID, TAB 10/02/18 Glimepiride* (Glimepiride*) 2 Mg Tablet, 2 MG PO WITH BREAKFAST, TAB 10/02/18 Discontinued Reported Medications Aripiprazole (Aripiprazole) 5 Mg Tablet, 0.5 TAB ORAL DAILY 09/16/18 Lisinopril* (Lisinopril*) 2.5 Mg Tablet, 1 TAB ORAL DAILY 09/16/18 Acetaminophen* (Acetaminophen*) 500 MG Extra Strength Tablet, 500 MG PO DAILY, TAB 09/16/18 Lamotrigine* (Lamotrigine*) 100 Mg Tablet, 1 TAB ORAL BID 09/16/18 Digoxin* (Lanoxin*) 0.125 Mg Tablet, 0.125 MG PO DAILY, TAB 01/28/18 Glimepiride* (Glimepiride*) 2 Mg Tablet, 2 MG PO WITH BREAKFAST, TAB 01/28/18 Furosemide* (Lasix*) 20 Mg Tablet, 20 MG PO DAILY, TAB 01/28/18 Carvedilol* (Carvedilol*) 3.125 Mg Tablet, 3.125 MG PO BID, #60 TAB 01/28/18 Pantoprazole* (Protonix*) 40 Mg Tablet.dr, 40 MG PO DAILY, TAB 01/28/18 Levothyroxine Sodium* (Levoxyl*) 150 Mcg Tablet, 150 MCG PO BEFORE BREAKFAST, #30 TAB 01/28/18 Atorvastatin* (Atorvastatin*) 80 Mg Tablet, 80 MG PO QHS, #30 TAB 01/28/18 Discontinued Scripts Allopurinol* (Allopurinol*) 100 Mg Tablet, 100 MG PO DAILY for 30 Days, #30 TAB Prov:JOS FOSTER MD 02/13/18 Cyanocobalamin* (Vitamin B12*) 500 Mcg Tab, 1000 MCG PO DAILY for 30 Days, #30 TAB Prov:JOS FOSTER MD 02/13/18 Aspirin Delayed Release (Aspirin Delayed Release) 81 Mg Tablet.dr, 81 MG PO DAILY for 30 Days, #30 Prov:JOS FOSTER MD 02/13/18 Allergies Allergies: Coded Allergies: iodine (Verified Allergy, Mild, 10/02/18) procainamide (Verified Allergy, Mild, 10/02/18) PMhx/Soc History of Surgery: Yes (pacemaker, bilateral knee, heart valve) Anesthesia Reaction: No Hx Neurological Disorder: Yes (hx stroke) Hx Respiratory Disorders: Yes (COPD) Hx Cardiac Disorders: Yes (pacemaker, stents, heart attack) Hx Psychiatric Problems: Yes (depression, bipolar) Hx Miscellaneous Medical Probl: No Hx Alcohol Use: No Hx Substance Use: No Hx Tobacco Use: Yes Smoking Status: Current every day smoker Physical Exam Vitals Vital Signs Date Temp Pulse Resp B/P (MAP) Pulse Ox O2 O2 Flow FiO2 Time Delivery Rate 10/02/18 61 15 102/59 98 Room Air 19:00 (73) 10/02/18 56 14 90/55 (67) 98 Room Air 18:30 10/02/18 97.8 66 16 112/57 100 17:45 (75) Physical Exam Const: No acute distress. Dehydrated Head: Atraumatic. Eyes: Normal Conjunctiva. ENT: Normal External Ears, Nose and Mouth. Neck: Full range of motion. No meningismus. Resp: Clear to auscultation bilaterally. Cardio: Regular rate and rhythm. Abd: Soft, non distended, normal bowel sounds, non tender. Skin: No petechiae or rashes. Back: No midline or flank tenderness. Ext: No cyanosis, or edema. Neur: Awake and alert. No focal deficit Psych: Normal Mood and Affect. Result Diagram: 10/02/18 1755 10/02/18 175 Results 24 hrs Laboratory Tests Test 10/02/18 17:55 10/02/18 17:57 White Blood Count 11.7 10^3/ul Red Blood Count 3.85 10^6/ul Hemoglobin 11.1 g/dl Hematocrit 34.4 % Mean Corpuscular Volume 89.4 fl Mean Corpuscular Hemoglobin 28.8 pg Mean Corpuscular Hemoglobin Concent 32.3 g/dl Red Cell Distribution Width 14.1 % Platelet Count 234 10^3/UL Mean Platelet Volume 9.5 fl Immature Granulocytes % 0.300 % Neutrophils % 90.3 % Lymphocytes % 5.6 % Monocytes % 3.6 % Eosinophils % 0.0 % Basophils % 0.2 % Nucleated Red Blood Cells % 0.0 /100WBC Immature Granulocytes # 0.040 10^3/ul Neutrophils # 10.5 10^3/ul Lymphocytes # 0.7 10^3/ul Monocytes # 0.4 10^3/ul Eosinophils # 0.0 10^3/ul Basophils # 0.0 10^3/ul Nucleated Red Blood Cells # 0.0 10^3/ul Prothrombin Time 13.4 Sec Prothrombin Time Ratio 1.0 INR International Normalized Ratio 1.01 Activated Partial Thromboplast Time 34.1 Sec Sodium Level 137 mmol/L Potassium Level 4.6 mmol/L Chloride Level 101 mmol/L Carbon Dioxide Level 28 mmol/L Anion Gap 8 Blood Urea Nitrogen 52 mg/dl Creatinine 2.36 mg/dl Est Glomerular Filtrat Rate mL/min mL/min Glucose Level 161 mg/dl Calcium Level 9.4 mg/dl Troponin I 0.061 ng/ml Digoxin Level 0.6 ng/ml Bedside Glucose 170 mg/dL Current Medications Medications Dose Sig/Randy Start Time Status Last (Trade) Ordered Route PRN Stop Time Admin Dose Reason Admin Sodium 500 ml @ Q1H ONCE 10/02/18 DC 10/02/18 Chloride 500 mls/hr IV 20:00 10/02/18 19:54 20:59 Procedures/MDM [place] [address] Radiology Main Line: [phone] DIAGNOSTIC IMAGING REPORT Patient: SHANA HARVEY : 1940 Age: 78 Sex: M MR #: [id number] DOS: 10/02/18 1753 Ordering MD: ISRAEL MAYS MD Location: E/R Room/Bed: PROCEDURE: CT Brain without contrast. CLINICAL INDICATION: Syncope TECHNIQUE: A CT of the brain was performed on a multi-slice CT scanner utilizing axial imaging from the skull base through the vertex without IV contrast. Coronal and sagittal re-formations were created. Images were reviewed on a PACS workstation. The CTDIvol is 39 mGy and the DLP is 699 mGycm. DICOM images are available. 3-D reconstructions were not performed. One or more of the following dose reduction techniques were utilized: 1.) Automated exposure control 2.) Adjustment of the mA +/- kV according to patient's size 3.) Use of iterative reconstruction technique. COMPARISON: None FINDINGS: The basilar cisterns, ventricular spaces and sulcal spaces are all prominently enlarged. There is no midline shift or other evidence of mass effect. There are no abnormal foci of increased attenuation in the brain parenchyma. There is diffuse periventricular white matter low attenuation in both hemispheres with a large focal region of encephalomalacia in the medial right occipital lobe . Bone-windows show no lytic or blastic calvarial lesions. The visualized paranasal sinuses and mastoid air cells are clear. There is calcification in the intracranial internal carotid and vertebral arteries. IMPRESSION: 1. Stable moderate to severe central and cortical cerebral atrophy and microvascular white matter disease, without evidence of intracranial hemorrhage, mass, or acute infarct. 2. Evidence of atherosclerosis of the intracranial internal carotid and vertebral arteries. RPTAT:AAJJ Physician Mauricio Date Time Electronically viewed and signed by Physician Mauricio on 10/02/2018 19:26 GW/ CC: ISRAEL MAYS MD [id number] [place] [address] Radiology Main Line: [phone] DIAGNOSTIC IMAGING REPORT Patient: SHANA HARVEY : 1940 Age: 78 Sex: M MR #: [id number] DOS: 10/02/18 1753 Ordering MD: ISRAEL MAYS MD Location: E/R Room/Bed: PROCEDURE: XR Chest. CLINICAL INDICATION: Chest pain. Syncope TECHNIQUE: Portable AP view of the chest was obtained. COMPARISON: 09/21/2018 FINDINGS: The cardiomediastinal silhouette is within normal limits. A single chamber left subclavian approach cardiac pacemaker is again noted. The lungs are clear. There is no evidence for pleural effusion, pneumothorax or pulmonary vascular congestion. The osseous structures are intact with no evidence for acute abnormality. RPTAT:HJJR IMPRESSION: No evidence for acute intrathoracic pathology or interval change from 09/21/2018. Physician Pete Date Time Electronically viewed and signed by Physician Pete on 10/02/2018 18:18 JR/ CC: ISRAEL MAYS MD [id number] EKG: Read by emergency physician Rate/Rhythm: Normal Sinus Rhythm 60 beats/min QRS, ST, T-waves: No ST elevation, no T inversion, first-degree AV block, PVC, LAD Impression: Abnormal EKG MEDICAL MAKING DECISION: The patient is a 78-year-old male, presenting with acute dizziness most likely due to acute dehydration and acute on chronic kidney disease, suspicious for acute GI bleed. His hemoglobin on September 26, 2018 was 12.3, today is 11.1. Creatinine on September 26, 2017 was 1.65, today is 2.36 He was treated with 500 cc of normal saline for dehydration with good response The differential diagnoses considered include but are not limited to acute gi bleeding, central causes such as cerebellar infarct, cerebellar hemorrhage, cerebellar tumor, acoustic neuroma, peripheral causes such as benign positional vertigo, labyrinthitis, medication, Meniere's disease. Departure Diagnosis: Primary Impression: Acute on chronic kidney failure Additional Impressions: GI bleed Dehydration Condition: Stable Comments I discussed the findings with the patient. I notified the patient with Dr. Adams at 8:50p via [employer], who was made aware of the lab, the treatment, the patient condition. The patient is admitted to Tel Disclaimer: Inadvertent spelling and grammatical errors are likely due to EHR/dictation software use and do not reflect on the overall quality of patient care. Also, please note that the electronic time recorded on this note does not necessarily reflect the actual time of the patient encounter. ISRAEL MAYS MD Oct 03, 2018 00:08
[2018-10-03] MEDS ORDERED: GLUCOSE GEL 15 GRAM TUBE BUCCAL PRN (02:30)
[2018-10-03] MEDS ORDERED: DEXTROSE 50% 50 ML SYRINGE IV PRN ×2 (02:30)
[2018-10-03] MEDS ORDERED: GLUCAGON 1 MG INJ IM PRN (02:30)
[2018-10-03] MEDS ORDERED: GLUCOSE GEL 15 GRAM TUBE PO PRN ×2 (02:30)
[2018-10-03] MEDS: LEVOTHYROXINE 150 MCG TAB PO SCH (06:03)
[2018-10-03] MEDS ORDERED: PANTOPRAZOLE (EC) 40 MG TAB PO SCH (07:00)
[2018-10-03] MEDS: SOD CHLORIDE 0.9% 1,000 ML IV SCH ×2 (07:06→18:54)
[2018-10-03] MEDS: ACCU-CHEK XX SCH ×4 (07:58→21:32)
[2018-10-03] MEDS: INSULIN ASPART [NOVOLOG] 3 ML PEN SC SCH ×4 (07:58→21:00)
[2018-10-03] MEDS ORDERED: GLIMEPIRIDE 2 MG TAB PO SCH (08:00)
[2018-10-03] MEDS: DIGOXIN 0.125 MG TAB PO SCH (09:00)
[2018-10-03] MEDS ORDERED: NON-FORMULARY/PATIENT OWN MED (Cyanocobalamin (Vitamin B-12) (Vitamin B-12) 1,000 MCG) PO SCH (09:00)
[2018-10-03] MEDS: ALLOPURINOL 100 MG TAB PO SCH (09:15)
[2018-10-03] MEDS: ARIPIPRAZOLE 5 MG TAB PO SCH (09:15)
[2018-10-03] MEDS: CYANOCOBALAMIN 500 MCG TAB PO SCH (09:15)
[2018-10-03] MEDS: LAMOTRIGINE 100 MG TAB PO SCH ×2 (09:15→21:36)
[2018-10-03] MEDS: LISINOPRIL 5 MG TAB PO SCH (09:17)
[2018-10-03] MEDS: FAMOTIDINE 20 MG TAB PO SCH (09:22)
[2018-10-03] MEDS: FUROSEMIDE 20 MG TAB PO SCH (09:26)
[2018-10-03] MEDS: ENOXAPARIN 30 MG/0.3 ML SYG SC SCH (09:55)
--- NOTE | 2018-10-03 14:01 | HP ---
Date/Time of Note Date/Time of Note DATE: 10/03/18 TIME: 13:58 Assessment/Plan VTE Prophylaxis Risk score (from [facility] [place]0 risk: 4 SCD applied (from [facility] [place]): No SCD contraindicated: other Pharmacological prophylaxis: LMWH Lines/Catheters IV Catheter Type (from [facility]): Peripheral IV Assessment/Plan Hospital Course 1) dehydration - IV fluids - monitor clinically 2) cardiomyopathy - consult cardiology 3) renal insufficiency - probably secondary to #1, will monitor BUN/Cr levels 4) diabetes - monitor blood sugars - sliding scale insulin Result Diagram: 10/03/1852110/03/18521 Results 24hrs Laboratory Tests Test 10/02/18 17:55 10/02/18 17:57 10/02/18 21:19 10/03/18 05:22 White Blood Count 11.7 H 8.1 # Red Blood Count 3.85 L 3.35 L Hemoglobin 11.1 L 9.8 L Hematocrit 34.4 L 30.3 L Mean Corpuscular Volume 89.4 90.4 Mean Corpuscular 28.8 L 29.3 Hemoglobin Mean Corpuscular 32.3 32.3 Hemoglobin Concent Red Cell Distribution 14.1 14.1 Width Platelet Count 234 188 Mean Platelet Volume 9.5 9.9 Immature Granulocytes % 0.300 0.600 H Neutrophils % 90.3 H 69.1 Lymphocytes % 5.6 L 20.5 Monocytes % 3.6 8.1 Eosinophils % 0.0 1.6 Basophils % 0.2 0.1 Nucleated Red Blood 0.0 0.0 Cells % Immature Granulocytes # 0.040 H 0.050 H Neutrophils # 10.5 H 5.6 Lymphocytes # 0.7 L 1.7 Monocytes # 0.4 0.7 Eosinophils # 0.0 0.1 Basophils # 0.0 0.0 Nucleated Red Blood 0.0 0.0 Cells # Prothrombin Time 13.4 Prothrombin Time Ratio 1.0 INR International 1.01 Normalized Ratio Activated 34.1 Partial Thromboplast Time Sodium Level 137 138 Potassium Level 4.6 3.9 Chloride Level 101 105 Carbon Dioxide Level 28 28 Anion Gap 8 5 Blood Urea Nitrogen 52 H 41 #H Creatinine 2.36 H 1.94 H Est Glomerular Filtrat Rate mL/min Glucose Level 161 97 # Calcium Level 9.4 8.9 Troponin I 0.061 Digoxin Level 0.6 L Bedside Glucose 170 Bedside Urine pH (LAB) 5.5 Bedside Urine Protein Trace H (LAB) Bedside Urine Glucose Negative (UA) Bedside Urine Ketones Negative (LAB) Bedside Urine Blood Negative Bedside Urine Nitrite Negative (LAB) Bedside Urine Negative Leukocyte Esterase (L Hemoglobin A1c 6.5 H Total Bilirubin 0.4 Direct Bilirubin 0.00 Indirect Bilirubin 0.4 Aspartate Amino 16 Transf (AST/SGOT) Alanine 29 Aminotransferase (ALT/SG PT) Alkaline Phosphatase 61 Total Protein 6.3 Albumin 3.0 L Globulin 3.30 H Albumin/Globulin Ratio 0.90 Test 10/03/18 07:56 10/03/18 11:34 Bedside Glucose 109 113 HPI/ROS Admit Date/Time Admit Date/Time Oct 02, 2018 at 20:53 Hx of Present Illness Patient with hypertension, diabetes, cardiomyopathy, history of cerebrovascular accident comes in with dizziness and near syncope. Patient was found to be in renal insufficiency most likely related to dehydration. PMH/Family/Social Past Medical History Medical History: diabetes, high cholesterol, hypertension Medications Current Medications Sodium Chloride 1,000 ml @ 100 mls/hr Q10H IV Last administered on 10/03/18at 07:06; Admin Dose 100 MLS/HR; Start 10/02/18 at 21:11 IV Flush (NS 3 ml) 3 ml PER PROTOCOL IV ; Start 10/02/18 at 21:30 Ondansetron HCl (Zofran Inj) 4 mg Q6H PRN IV NAUSEA/VOMITING; Start 10/02/18 at 21:30 Acetaminophen (Tylenol Tab) 650 mg Q6H PRN PO .PAIN 1-3 OR TEMP; Start 10/02/18 at 21:30 Morphine Sulfate (morphine) 2 mg Q4H PRN IV .PAIN 7-10; Start 10/02/18 at 21:30 Famotidine (Pepcid) 20 mg DAILY PO Last administered on 10/03/18at 09:22; Admin Dose 20 MG; Start 10/03/18 at 09:00 Enoxaparin Sodium (Lovenox) 30 mg DAILY SC Last administered on 10/03/18at 09:55; Admin Dose 30 MG; Start 10/03/18 at 09:00 Allopurinol (Zyloprim) 100 mg DAILY PO Last administered on 10/03/18at 09:15; Admin Dose 100 MG; Start 10/03/18 at 09:00 Aripiprazole (Abilify) 5 mg DAILY PO Last administered on 10/03/18 09:15; Admin Dose 5 MG; Start 10/03/18 at 09:00 Atorvastatin Calcium (Lipitor) 80 mg QHS PO ; Start 10/03/18 at 21:00 Carvedilol (Coreg) 3.125 mg BID PO Last administered on 10/03/18at 09:16; Admin Dose 3.125 MG; Start 10/03/18 at 09:00 Digoxin (Digoxin) 0.125 mg DAILY PO ; Start 10/03/18 at 09:00 Furosemide (Lasix) 20 mg DAILY PO Last administered on 10/03/18 09:26; Admin Dose 20 MG; Start 10/03/18 at 09:00 Glimepiride (Amaryl) 2 mg WITH BREAKFAST PO ; Start 10/03/18 at 08:00; Status Hold Lamotrigine (Lamictal) 100 mg BID PO Last administered on 10/03/18at 09:15; Admin Dose 100 MG; Start 10/03/18 at 09:00 Levothyroxine Sodium (Synthroid) 150 mcg BEFORE BREAKFAST PO Last administered on 10/03/18 06:03; Admin Dose 150 MCG; Start 10/03/18 at 07:00 Lisinopril (Zestril) 2.5 mg DAILY PO Last administered on 10/03/18 09:17; Admin Dose 2.5 MG; Start 10/03/18 at 09:00 Diagnostic Test (Pha) (Accu-Chek) 1 ea AC MEALS AND BEDTIME XX Last administered on 10/03/18at 11:35; Admin Dose 1 EA; Start 10/03/18 at 07:00 Diagnostic Test (Pha) (Accu-Chek) 1 ea 02 XX ; Start 10/04/18 at 02:00 Insulin Aspart (Novolog Insulin Pen) NOVOLOG *MODERATE* ALGORITHM WITH MEALS BEDTIME SC ; Start 10/03/18 at 08:00 Miscellaneous Information 1 ea NOTE XX ; Start 10/03/18 at 02:30 Glucose (Glutose) 15 gm Q15M PRN PO DECREASED GLUCOSE; Start 10/03/18 at 02:30 Glucose (Glutose) 22.5 gm Q15M PRN PO DECREASED GLUCOSE; Start 10/03/18 at 02:30 Dextrose (D50w Syringe) 25 ml Q15M PRN IV DECREASED GLUCOSE; Start 10/03/18 at 02:30 Dextrose (D50w Syringe) 50 ml Q15M PRN IV DECREASED GLUCOSE; Start 10/03/18 at 02:30 Glucagon (Glucagen) 1 mg Q15M PRN IM DECREASED GLUCOSE; Start 10/03/18 at 02:30 Glucose (Glutose) 15 gm Q15M PRN BUCCAL DECREASED GLUCOSE; Start 10/03/18 at 02:30 Cyanocobalamin (Vitamin B12) 1,000 mcg DAILY PO Last administered on 10/03/18at 09:15; Admin Dose 1,000 MCG; Start 10/03/18 at 09:00 Coded Allergies: iodine (Verified Allergy, Mild, 10/02/18) procainamide (Verified Allergy, Mild, 10/02/18) Past Surgical History Past Surgical Hx: angioplasty, cholecystectomy, other Family History Significant Family History: other Social History Smoking Status: Current every day smoker Exam/Review of Systems Vital Signs Vitals Vital Signs Date Temp Pulse Resp B/P (MAP) Pulse Ox O2 O2 Flow FiO2 Time Delivery Rate 10/03/18 97.9 54 19 100/55 94 11:08 (70) 10/02/18 Room Air 21:45 Exam Constitutional: well developed Head: normocephalic, atraumatic Neck: supple Respiratory: diminished breath sounds Cardiovascular: regular rate and rhythm Gastrointestinal: soft, non-tender Extremities: normal pulses DAMIR LATIF Oct 03, 2018 14:00
--- NOTE | 2018-10-03 15:24 | CONS ---
DATE OF ADMISSION: 10/02/2018 DATE OF CONSULTATION: 10/03/2018 TYPE OF CONSULTATION: Cardiology. REASON FOR CONSULTATION: Cardiomyopathy, decreased left ventricular ejection fraction, assess management as well as AICD with possible dysfunction. Assess function. REQUESTING PHYSICIAN: Dr. Judith Latif. HISTORY OF PRESENT ILLNESS: Mr. Snyder is an 78-year-old male with a history of a prior ischemic cardiomyopathy with last known EF of 25% by echo January,. History of coronary artery disease with prior stent with last Lexiscan in 03/2017 being negative for inducible ischemia, hypertension, history of ICD placed at [facility] 03/2017, COPD, shortness of breath, who had recently been admitted for dizziness and acute kidney injury. The patient made improvement was discharged to outpatient followup and now represents from his chronic care facility due to ongoing dizziness, lightheadedness, nausea, decreased appetite and per patient, did have recurrent falls when he does not have his walker as he feels recurrent dizziness and weakness in his legs. The patient denies chest pain at this time. PAST MEDICAL HISTORY: As above in HPI. MEDICATIONS CURRENTLY IN HOSPITAL: 1. Lipitor 80 mg at bedtime. 2. Pepcid 20 mg daily. 3. Lovenox 30 mg subq daily. 4. Allopurinol 100 mg daily. 5. Abilify 5 mg daily. 6. Carvedilol 3.125 mg p.o. b.i.d. 7. Digoxin 0.125 mg daily. 8. Lasix 20 mg daily. 9. Lamictal 100 mg b.i.d. 10. Zestril 2.5 mg daily. 11. Vitamin B12. 12. Insulin. 13. Synthroid 150 mg daily. 14. IV fluid hydration. 15. Morphine. ALLERGIES: 1. IODINE. 2. PROCAINAMIDE. SOCIAL HISTORY: Positive tobacco every day usage. No ETOH or illicit drug use. FAMILY HISTORY: No history of sudden cardiac or early CAD. REVIEW OF SYSTEMS: As above in HPI. CONSTITUTIONAL: No fevers, chills. PULMONARY: Intermittent shortness of breath. CARDIOVASCULAR: Cardiomyopathy with decreased left ventricular ejection fraction, AICD. GASTROINTESTINAL: No vomiting, but nausea. GENITOURINARY: No hematuria, but renal failure. PSYCHIATRIC: No documented psychiatric history. NEUROLOGIC: No documented history of CVA. ENDOCRINE: Hypothyroidism, diabetes mellitus. PHYSICAL EXAMINATION: VITAL SIGNS: Temperature 97.9, blood pressure 100/55, pulse 64, respiratory rate 19, satting 94%. GENERAL: The patient is alert, awake, complaining of dizziness. NECK: JVP approximately 9 cm of water. CHEST: Decreased breath sounds at base bilaterally. HEART: Bradycardic, regular rhythm, normal S1, S2. Laterally displaced PMI. ABDOMEN: Positive bowel sounds, soft. EXTREMITIES: Trace edema, 1+ pulses bilateral posterior tibial. LABORATORY DATA: Most recently from today, sodium 138, potassium 3.9, creatinine 1.94, BUN of 41. White count 8.1, hemoglobin 9.8, platelet count 188. Digoxin 11.6. UA negative. IMAGING STUDIES: As above in HPI with a chest x-ray from the [facility] revealing no evidence of acute intrathoracic pathology and a head CT from the [facility] revealing stable moderate to severe central cortical cerebral atrophy with microvascular white matter change without evidence for intracranial hemorrhage, mass or acute infarct. ECG: Primarily sinus rhythm, sinus bradycardia, rate 59 with an IVCD, left axis deviation, secondary to repolarization abnormalities, intermittent demand ventricular pacing beats. Patient subsequently admitted to the floor and since admit to the floor denies chest pain, shortness of breath, has been monitored on telemetry with some patient spikes and a failure to capture a complex thereafter. ELECTROCARDIOGRAM: As above in HPI. Nonspecific IVCD, secondary repolarization abnormalities, left axis deviation and intermittent demand beats. IMPRESSION: 1. Automatic implantable cardioverter defibrillator with possible dysfunction, failure to capture. Will assess [facility] device. 2. Dizziness. Rule cardiology, rule out cardiac arrhythmia, rule out pacemaker dysfunction. 3. Cardiomyopathy with severely depressed left ventricular ejection fraction of approximately 25% with congestive heart failure, systolic, acute on chronic. 4. Renal failure, acute on chronic. 5. Borderline hypotension in the setting of heart dysfunction. 6. Diabetes mellitus. 7. Recurrent falls. 8. Hypothyroidism. RECOMMENDATIONS: 1. At this time, we would maintain the patient on telemetry monitoring to follow rhythm and rate control closely. 2. Continue the patient's carvedilol for now and the patient's lisinopril and would continue the patient's gentle Lasix diuresis and follow the patient's renal function closely. 3. We will have the patient's AICD interrogated to assess for proper function. 4. We will complete a rule out for myocardial infarction to ensure the patient's consciousness does not result in acute coronary syndrome, acute myocardial infarction. 5. Continue the patient's current digoxin but check a digoxin level. 6. Check a fasting lipid panel. Adjust patient's statin therapy as necessary. Thank you for allowing me to take part in the care of this patient. I will continue to follow very closely with you as further recommendations will be made as the patient progresses through his inpatient hospital clinical course. Dictated By: JACLYN PATINO/ALBARO Conf#: [id number] DID#: [id number] CC: JUDITH LATIF MD;*EndCC* MTDD
--- NOTE | 2018-10-03 17:43 | RADRPT ---
Echocardiogram Report Patient Name: SHANA HARVEYPatient ID: [id number] : 1940 (78y 9m)Study Date: 10/03/2018 2:16:49 PM Gender: MAccession #: [id number] Tech: PA Location: [facility] Ref.Physician: JACLYN CHOUDHURY Height(Cm): BSA: Weight(Kg): Quality: Technically Difficult StudyOrder Physician: JACLYN CHOUDHURY Account #: Procedures: Echocardiographic Report: Transthoracic echocardiogram with complete 2D, M-Mode, and doppler examination. Indications: Congestive Heart Failure. Measurements: 2D/M Mode Doppler Measurement Value Normal Range Measurement Value Normal Range LVIDd 2D 5.2 [ 4.2 - 5.8 ] cm AV Mean Farshad 0.9 [ 70.0 - 90.0 ] cm/sec LVIDs 2D 3.7 [ 2.5 - 4.0 ] cm AV Mean PG 4.0 [ 2.0 - 4.0 ] mmHg LVPWd 2D 1.2 [ 0.6 - 1.0 ] cm AV VTI 22.4 cm IVSd 2D 1.1 [ 0.6 - 1.0 ] cm LVOT Mean Farshad 0.8 [ 60.0 - 80.0 ] cm/sec AoR Diam 2D 2.0 [ 2.6 - 3.4 ] cm LVOT Mean PG 3.0 [ 1.0 - 3.0 ] mmHg EDV 2D 128.0 [ 62.0 - 150.0 ] ml LVOT Peak Farshad 1.1 [ 70.0 - 110.0 ] cm/sec ESV 2D 58.5 [ 21.0 - 61.0 ] ml LVOT Peak PG 5.0 [ 2.0 - 6.0 ] mmHg EF 2D 54.3 [ 52.0 - 72.0 ] percent LVOT VTI 27.5 [ 20.0 - 30.0 ] cm LA Dimen 2D 3.9 [ 3.0 - 4.0 ] cm MV E Peak Farshad 0.7 [ 60.0 - 130.0 ] cm/sec MV Decel Time 218 [ 104 - 258 ] msec TR Peak Farshad 2.3 [ 100.0 - 280.0 ] cm/sec TR Peak PG 22.0 mmHg RVSP 25.0 [ 10.0 - 36.0 ] mmHg RA Pressure 3.0 mmHg Findings: Left Ventricle: Normal left ventricular cavity size. Mild concentric left ventricular hypertrophy. Moderate global left ventricular systolic dysfunction. Ejection fraction is visually estimated at 30 %. Abnormal Diastolic Function. Right Ventricle: Normal right ventricular size. Normal right ventricular systolic function. Linear artifact in right ventricle suggestive of catheter, pacer lead, or ICD lead. Left Atrium: The left atrium is normal in size. Right Atrium: The right atrium is normal in size. Mitral Valve: Normal appearance of the mitral valve. Mild mitral annular calcification. Trace mitral regurgitation. Aortic Valve: Aortic Valve Bio Prosthesis. Aortic valve Max velocity 1.33 m/sec. Max PG 7.00 mmHg. Mean PG 4.00 mmHg. No aortic regurgitation. Tricuspid Valve: Normal appearance and function of the tricuspid valve with trace physiologic regurgitation. Normal right ventricular systolic pressure. Pulmonic Valve: Normal pulmonic valve appearance. Pericardium: Normal pericardium with no significant pericardial effusion. Aorta: Normal aortic root. IVC: Normal size and normal respiratory collapse consistent with normal right atrial pressure. Conclusions: Normal left ventricular cavity size. Mild concentric left ventricular hypertrophy. Moderate global left ventricular systolic dysfunction. Ejection fraction is visually estimated at 30 %. Abnormal Diastolic Function. Normal appearance of the mitral valve. Mild mitral annular calcification. Trace mitral regurgitation. Aortic Valve Bio Prosthesis. Aortic valve Max velocity 1.33 m/sec. Max PG 7.00 mmHg. Mean PG 4.00 mmHg. No aortic regurgitation. Normal appearance and function of the tricuspid valve with trace physiologic regurgitation. Normal right ventricular systolic pressure. Electronically Signed By: Jaclyn Choudhury 2018-10-03 17:42:58 PDT
[2018-10-03] MEDS: ATORVASTATIN 80 MG TAB PO SCH (21:36)
[2018-10-04 00:17] VITALS: BP 92/46; PULSE 57; RESP 18
[2018-10-04] MEDS: ACCU-CHEK XX SCH ×5 (01:24→20:21)
[2018-10-04] MEDS: SOD CHLORIDE 0.9% 1,000 ML IV SCH ×3 (02:21→22:17)
[2018-10-04 03:16] VITALS: BP 91/54; PULSE 55; RESP 18
[2018-10-04] MEDS: LEVOTHYROXINE 150 MCG TAB PO SCH (06:08)
[2018-10-04 07:34] VITALS: BP 96/50; PULSE 55; RESP 19
[2018-10-04] MEDS: INSULIN ASPART [NOVOLOG] 3 ML PEN SC SCH ×4 (07:35→20:21)
[2018-10-04] MEDS: LISINOPRIL 5 MG TAB PO SCH (09:00)
[2018-10-04] MEDS: DIGOXIN 0.125 MG TAB PO SCH (09:00)
[2018-10-04] MEDS: ARIPIPRAZOLE 5 MG TAB PO SCH (09:36)
[2018-10-04] MEDS: ALLOPURINOL 100 MG TAB PO SCH (09:36)
[2018-10-04] MEDS: FAMOTIDINE 20 MG TAB PO SCH (09:37)
[2018-10-04] MEDS: CYANOCOBALAMIN 500 MCG TAB PO SCH (09:37)
[2018-10-04] MEDS: LAMOTRIGINE 100 MG TAB PO SCH ×2 (09:37→20:21)
[2018-10-04] MEDS: FUROSEMIDE 20 MG TAB PO SCH (09:39)
[2018-10-04] MEDS: ENOXAPARIN 30 MG/0.3 ML SYG SC SCH (09:52)
--- NOTE | 2018-10-04 10:31 | RADRPT ---
Vent Rate: 61 bpm RR Interval: 981 msec NJ Interval: 257 msec QRS Duration: 167 msec QT Interval: 476 msec QTC Interval: 481 msec P-R-T Allison: 65 - 11 - 264 degrees Ventricular-paced complexes...other complexes also detected PVC Nonspecific intraventricular conduction delay...QRSd >115mS, not LBBB/RBBB Electronically Signed By: Ricardo Lee
[2018-10-04 11:00] VITALS: BP 92/52; PULSE 57; RESP 18
--- NOTE | 2018-10-04 13:33 | CONS ---
Assessment/Plan Assessment/Plan Hospital Course (Demo Recall) IMPRESSION: 1. Automatic implantable cardioverter defibrillator with possible dysfunction, failure to capture. Will assess [facility] device. 2. Dizziness. Rule cardiology, rule out cardiac arrhythmia, rule out pacemaker dysfunction. 3. Cardiomyopathy with severely depressed left ventricular ejection fraction of approximately 25% with congestive heart failure, systolic, acute on chronic.- neg trop x 3 4. Renal failure, acute on chronic. 5. Borderline hypotension in the setting of heart dysfunction. 6. Diabetes mellitus. 7. Recurrent falls. 8. Hypothyroidism. REcc: -Tele -s/p interrogation and adjustment to ICD/PPM this am -Continue zestril as tolerated only -Hold coreg for now -Continue lasix diuresis and follow volume status and renal function -continue statin Consultation Date/Type/Reason Admit Date/Time Oct 02, 2018 at 20:53 Initial Consult Date 10/04/18 Type of Consult Cardiology Reason for Consultation cardiomyopathy/ICD Requesting Provider: DAMIR LATIF Date/Time of Note DATE: 10/04/18 TIME: 13:28 Exam/Review of Systems Vital Signs Vitals Vital Signs Date Temp Pulse Resp B/P (MAP) Pulse Ox O2 O2 Flow FiO2 Time Delivery Rate 10/04/18 Room Air 13:16 10/04/18 98.1 57 18 92/52 (65) 96 11:00 Intake and Output 10/03/18 10/03/18 10/04/18 1515:00 23:00 07:00 IntakeIntake Total 120 ml 480 ml OutputOutput Total 1000 ml 700 ml 200 ml BalanceBalance -880 ml -220 ml -200 ml Exam Exam Review of Systems: CONSTITUTIONAL: No fevers, chills. PULMONARY: No sob CARDIOVASCULAR: No chest pain/palpitations GASTROINTESTINAL: No nausea/vomiting. GENITOURINARY: No hematuria/dysuria. MUSCULOSKELETAL: No myagias/arthalgias. PSYCHIATRIC: The patient denies depression. NEUROLOGIC: No weakness Constitutional: alert Psych: no complaints Head: normocephalic ENMT: mucosa pink and moist Neck: supple, jvd (9 cm water) Respiratory: diminished breath sounds (at bases/B) Cardiovascular: regular rate and rhythm Gastrointestinal: soft, non-tender Musculoskeletal: muscle weakness (mild generalized) Extremities: edema (none) Labs Result Diagram: 8/10/14 52110/03/18 05 Results 24hrs Laboratory Tests Test 10/03/18 18:27 10/03/18 18:52 10/03/18 21:21 10/04/18 00:27 Creatine Kinase 51 54 Creatine Kinase Index 3.2 3.2 Creatinine Kinase MB 1.65 1.74 (Mass) Troponin I 0.050 0.052 Bedside Glucose 140 149 Test 10/04/18 05:19 10/04/18 07:33 10/04/18 12:07 Creatine Kinase 52 Creatine Kinase Index 3.2 Creatinine Kinase MB 1.68 (Mass) Troponin I 0.056 Triglycerides Level 148 Cholesterol Level 104 LDL Cholesterol, 55 Calculated HDL Cholesterol 19 L Cholesterol/HDL Ratio 5.4 Bedside Glucose 99 222 H Medications Medications Current Medications Sodium Chloride 1,000 ml @ 100 mls/hr Q10H IV Last administered on 10/04/18at 12:11; Admin Dose 100 MLS/HR; Start 10/02/18 at 21:11 IV Flush (NS 3 ml) 3 ml PER PROTOCOL IV ; Start 10/02/18 at 21:30 Ondansetron HCl (Zofran Inj) 4 mg Q6H PRN IV NAUSEA/VOMITING; Start 10/02/18 at 21:30 Acetaminophen (Tylenol Tab) 650 mg Q6H PRN PO .PAIN 1-3 OR TEMP; Start 10/02/18 at 21:30 Morphine Sulfate (morphine) 2 mg Q4H PRN IV .PAIN 7-10; Start 10/02/18 at 21:30 Famotidine (Pepcid) 20 mg DAILY PO Last administered on 10/04/18at 09:37; Admin Dose 20 MG; Start 10/03/18 at 09:00 Enoxaparin Sodium (Lovenox) 30 mg DAILY SC Last administered on 10/04/18at 09:52; Admin Dose 30 MG; Start 10/03/18 at 09:00 Allopurinol (Zyloprim) 100 mg DAILY PO Last administered on 10/04/18at 09:36; Admin Dose 100 MG; Start 10/03/18 at 09:00 Aripiprazole (Abilify) 5 mg DAILY PO Last administered on 10/04/18at 09:36; Admin Dose 5 MG; Start 10/03/18 at 09:00 Atorvastatin Calcium (Lipitor) 80 mg QHS PO Last administered on 10/03/18 21:36; Admin Dose 80 MG; Start 10/03/18 at 21:00 Carvedilol (Coreg) 3.125 mg BID PO Last administered on 10/03/18 09:16; Admin Dose 3.125 MG; Start 10/03/18 at 09:00 Digoxin (Digoxin) 0.125 mg DAILY PO ; Start 10/03/18 at 09:00 Furosemide (Lasix) 20 mg DAILY PO Last administered on 10/04/18 09:39; Admin Dose 20 MG; Start 10/03/18 at 09:00 Glimepiride (Amaryl) 2 mg WITH BREAKFAST PO ; Start 10/03/18 at 08:00; Status Hold Lamotrigine (Lamictal) 100 mg BID PO Last administered on 10/04/18 09:37; Admin Dose 100 MG; Start 10/03/18 at 09:00 Levothyroxine Sodium (Synthroid) 150 mcg BEFORE BREAKFAST PO Last administered on 10/04/18 06:08; Admin Dose 150 MCG; Start 10/03/18 at 07:00 Lisinopril (Zestril) 2.5 mg DAILY PO Last administered on 10/03/18 09:17; Admin Dose 2.5 MG; Start 10/03/18 at 09:00 Diagnostic Test (Pha) (Accu-Chek) 1 ea AC MEALS AND BEDTIME XX Last administered on 10/03/18at 21:32; Admin Dose 1 EA; Start 10/03/18 at 07:00 Diagnostic Test (Pha) (Accu-Chek) 1 ea 02 XX ; Start 10/04/18 at 02:00 Insulin Aspart (Novolog Insulin Pen) NOVOLOG *MODERATE* ALGORITHM WITH MEALS BEDTIME SC Last administered on 10/04/18 12:29; Admin Dose 6 UNIT; Start 10/03/18 at 08:00 Miscellaneous Information 1 ea NOTE XX ; Start 10/03/18 at 02:30 Glucose (Glutose) 15 gm Q15M PRN PO DECREASED GLUCOSE; Start 10/03/18 at 02:30 Glucose (Glutose) 22.5 gm Q15M PRN PO DECREASED GLUCOSE; Start 10/03/18 at 02:30 Dextrose (D50w Syringe) 25 ml Q15M PRN IV DECREASED GLUCOSE; Start 10/03/18 at 02:30 Dextrose (D50w Syringe) 50 ml Q15M PRN IV DECREASED GLUCOSE; Start 10/03/18 at 02:30 Glucagon (Glucagen) 1 mg Q15M PRN IM DECREASED GLUCOSE; Start 10/03/18 at 02:30 Glucose (Glutose) 15 gm Q15M PRN BUCCAL DECREASED GLUCOSE; Start 10/03/18 at 02:30 Cyanocobalamin (Vitamin B12) 1,000 mcg DAILY PO Last administered on 10/04/18at 09:37; Admin Dose 1,000 MCG; Start 10/03/18 at 09:00 JACLYN RODRIGUEZ Oct 04, 2018 13:33
--- NOTE | 2018-10-04 14:42 | PN ---
Date/Time of Note Date/Time of Note DATE: 10/04/18 TIME: 14:42 Assessment/Plan VTE Prophylaxis Risk score (from Ns)>0 risk: 6 SCD applied (from Ns): Yes Pharmacological prophylaxis: LMWH Lines/Catheters IV Catheter Type (from Nrs): Peripheral IV Assessment/Plan Hospital Course 1) dehydration - IV fluids - monitor clinically 2) cardiomyopathy - consult cardiology 3) renal insufficiency - probably secondary to #1, will monitor BUN/Cr levels 4) diabetes - monitor blood sugars - sliding scale insulin Result Diagram: 10/03/1852110/03/18521 Results 24hrs Laboratory Tests Test 10/03/18 18:27 10/03/18 18:52 10/03/18 21:21 10/04/18 00:27 Creatine Kinase 51 54 Creatine Kinase Index 3.2 3.2 Creatinine Kinase MB 1.65 1.74 (Mass) Troponin I 0.050 0.052 Bedside Glucose 140 149 Test 10/04/18 05:19 10/04/18 07:33 10/04/18 12:07 Creatine Kinase 52 Creatine Kinase Index 3.2 Creatinine Kinase MB 1.68 (Mass) Troponin I 0.056 Triglycerides Level 148 Cholesterol Level 104 LDL Cholesterol, 55 Calculated HDL Cholesterol 19 L Cholesterol/HDL Ratio 5.4 Bedside Glucose 99 222 H Subjective 24 Hr Interval Summary Free Text/Dictation Patient seem to be doing better but he hasn't be very mobile so difficult to tell Exam/Review of Systems Exam Vitals Vital Signs Date Temp Pulse Resp B/P (MAP) Pulse Ox O2 O2 Flow FiO2 Time Delivery Rate 10/04/18 Room Air 13:16 10/04/18 98.1 57 18 92/52 (65) 96 11:00 Intake and Output 10/03/18 10/03/18 10/04/18 1515:00 23:00 07:00 IntakeIntake Total 120 ml 480 ml OutputOutput Total 1000 ml 700 ml 200 ml BalanceBalance -880 ml -220 ml -200 ml Constitutional: well developed Head: normocephalic, atraumatic Neck: supple Respiratory: diminished breath sounds Cardiovascular: regular rate and rhythm Gastrointestinal: soft, non-tender Extremities: normal pulses Results Results 24hrs Laboratory Tests Test 10/03/18 18:27 10/03/18 18:52 8/8/19 21:21 10/04/18 00:27 Creatine Kinase 51 54 Creatine Kinase Index 3.2 3.2 Creatinine Kinase MB 1.65 1.74 (Mass) Troponin I 0.050 0.052 Bedside Glucose 140 149 Test 10/04/18 05:19 10/04/18 07:33 10/04/18 12:07 Creatine Kinase 52 Creatine Kinase Index 3.2 Creatinine Kinase MB 1.68 (Mass) Troponin I 0.056 Triglycerides Level 148 Cholesterol Level 104 LDL Cholesterol, 55 Calculated HDL Cholesterol 19 L Cholesterol/HDL Ratio 5.4 Bedside Glucose 99 222 H Medications Medication Current Medications Sodium Chloride 1,000 ml @ 100 mls/hr Q10H IV Last administered on 10/04/18 12:11; Admin Dose 100 MLS/HR; Start 10/02/18 at 21:11 IV Flush (NS 3 ml) 3 ml PER PROTOCOL IV ; Start 10/02/18 at 21:30 Ondansetron HCl (Zofran Inj) 4 mg Q6H PRN IV NAUSEA/VOMITING; Start 10/02/18 at 21:30 Acetaminophen (Tylenol Tab) 650 mg Q6H PRN PO .PAIN 1-3 OR TEMP; Start 10/02/18 at 21:30 Morphine Sulfate (morphine) 2 mg Q4H PRN IV .PAIN 7-10; Start 10/02/18 at 21:30 Famotidine (Pepcid) 20 mg DAILY PO Last administered on 10/04/18at 09:37; Admin Dose 20 MG; Start 10/03/18 at 09:00 Enoxaparin Sodium (Lovenox) 30 mg DAILY SC Last administered on 10/04/18at 09:52; Admin Dose 30 MG; Start 10/03/18 at 09:00 Allopurinol (Zyloprim) 100 mg DAILY PO Last administered on 10/04/18 09:36; Admin Dose 100 MG; Start 10/03/18 at 09:00 Aripiprazole (Abilify) 5 mg DAILY PO Last administered on 10/04/18 09:36; Admin Dose 5 MG; Start 10/03/18 at 09:00 Atorvastatin Calcium (Lipitor) 80 mg QHS PO Last administered on 10/03/18 21:36; Admin Dose 80 MG; Start 10/03/18 at 21:00 Carvedilol (Coreg) 3.125 mg BID PO Last administered on 10/03/18 09:16; Admin Dose 3.125 MG; Start 10/03/18 at 09:00 Digoxin (Digoxin) 0.125 mg DAILY PO ; Start 10/03/18 at 09:00 Furosemide (Lasix) 20 mg DAILY PO Last administered on 10/04/18 09:39; Admin Dose 20 MG; Start 10/03/18 at 09:00 Glimepiride (Amaryl) 2 mg WITH BREAKFAST PO ; Start 10/03/18 at 08:00; Status Hold Lamotrigine (Lamictal) 100 mg BID PO Last administered on 10/04/18 09:37; Admin Dose 100 MG; Start 10/03/18 at 09:00 Levothyroxine Sodium (Synthroid) 150 mcg BEFORE BREAKFAST PO Last administered on 10/04/18 06:08; Admin Dose 150 MCG; Start 10/03/18 at 07:00 Lisinopril (Zestril) 2.5 mg DAILY PO Last administered on 10/03/18 09:17; Admin Dose 2.5 MG; Start 10/03/18 at 09:00 Diagnostic Test (Pha) (Accu-Chek) 1 ea AC MEALS AND BEDTIME XX Last adm inistered on 10/03/18at 21:32; Admin Dose 1 EA; Start 10/03/18 at 07:00 Diagnostic Test (Pha) (Accu-Chek) 1 ea 02 XX ; Start 10/04/18 at 02:00 Insulin Aspart (Novolog Insulin Pen) NOVOLOG *MODERATE* ALGORITHM WITH MEALS BEDTIME SC Last administered on 10/04/18at 12:29; Admin Dose 6 UNIT; Start 10/03/18 at 08:00 Miscellaneous Information 1 ea NOTE XX ; Start 10/03/18 at 02:30 Glucose (Glutose) 15 gm Q15M PRN PO DECREASED GLUCOSE; Start 10/03/18 at 02:30 Glucose (Glutose) 22.5 gm Q15M PRN PO DECREASED GLUCOSE; Start 10/03/18 at 02:30 Dextrose (D50w Syringe) 25 ml Q15M PRN IV DECREASED GLUCOSE; Start 10/03/18 at 02:30 Dextrose (D50w Syringe) 50 ml Q15M PRN IV DECREASED GLUCOSE; Start 10/03/18 at 02:30 Glucagon (Glucagen) 1 mg Q15M PRN IM DECREASED GLUCOSE; Start 10/03/18 at 02:30 Glucose (Glutose) 15 gm Q15M PRN BUCCAL DECREASED GLUCOSE; Start 10/03/18 at 02:30 Cyanocobalamin (Vitamin B12) 1,000 mcg DAILY PO Last administered on 10/04/18at 09:37; Admin Dose 1,000 MCG; Start 10/03/18 at 09:00 DAMIR LATIF Oct 04, 2018 14:42
[2018-10-04 15:07] VITALS: BP 90/52; PULSE 79; RESP 18
[2018-10-04 20:00] VITALS: BP 96/54; PULSE 72; RESP 18
[2018-10-04] MEDS: ATORVASTATIN 80 MG TAB PO SCH (20:21)
[2018-10-05] VITALS (8 sets, daily range): BP systolic 96–126; BP diastolic 52–57; PULSE 57–67; RESP 16–20
[2018-10-05] MEDS: ACCU-CHEK XX SCH ×5 (01:37→21:51)
[2018-10-05] MEDS: LEVOTHYROXINE 150 MCG TAB PO SCH (06:17)
[2018-10-05] MEDS: INSULIN ASPART [NOVOLOG] 3 ML PEN SC SCH ×4 (08:00→21:00)
[2018-10-05] MEDS: LISINOPRIL 5 MG TAB PO SCH (09:00)
[2018-10-05] MEDS: FUROSEMIDE 20 MG TAB PO SCH (09:00)
[2018-10-05] MEDS: SOD CHLORIDE 0.9% 1,000 ML IV SCH ×2 (09:11→18:43)
[2018-10-05] MEDS: CYANOCOBALAMIN 500 MCG TAB PO SCH (09:48)
[2018-10-05] MEDS: ALLOPURINOL 100 MG TAB PO SCH (09:48)
[2018-10-05] MEDS: FAMOTIDINE 20 MG TAB PO SCH (09:48)
[2018-10-05] MEDS: ARIPIPRAZOLE 5 MG TAB PO SCH (09:48)
[2018-10-05] MEDS: LAMOTRIGINE 100 MG TAB PO SCH ×2 (09:48→21:47)
[2018-10-05] MEDS: DIGOXIN 0.125 MG TAB PO SCH (09:49)
[2018-10-05] MEDS: ENOXAPARIN 30 MG/0.3 ML SYG SC SCH (10:11)
[2018-10-05] MEDS ORDERED: SOD CHLORIDE 0.9% 500 ML IV ONE (11:00)
--- NOTE | 2018-10-05 12:11 | CONS ---
Assessment/Plan Assessment/Plan Hospital Course (Demo Recall) Subjective No acute event. Gen: Denies fever, chills CV: Denies chest pain, palpitations, SOB, CHOE, orthopnea, PND, edema, claudication Resp: Denies SOB or cough GI: Denies nausea, vomiting, diarrhea, constipation, abdominal pain Neuro: Denies lightheadedness, dizziness, presyncope/syncope Medications and allergies reviewed Past medical, surgical, family and social history reviewed. Objective General: WD/WN, NAD HEENT: NC/AT, PERRLA, dry mucus membranes CV: RRR, grade 1/6 systolic murmur, S1/S2, no S3/S4, no JVD, no carotid bruits Respiratory: CTAB, no W/C/R, non-labored breathing GI: abdomen soft, NT/ND, normoactive bowel sounds Vascular: extremities are warm, 2+ radial/DT/PT pulses bilaterally, no edema Neuro: A/O x3, no focal deficits Assessment & Plan IMPRESSION: 1. Automatic implantable cardioverter defibrillator with possible dysfunction, failure to capture, s/p adjustment of [employer] device settings 2. Dizziness. likely d/t pacemaker dysfunction. 3. Cardiomyopathy with severely depressed left ventricular ejection fraction of approximately 25% with congestive heart failure, systolic, acute on chronic.- neg trop x 3 4. Renal failure, acute on chronic. 5. Borderline hypotension in the setting of heart dysfunction. 6. Diabetes mellitus. 7. Recurrent falls. 8. Hypothyroidism. REcc: -Tele -s/p interrogation and adjustment to ICD/PPM yesterday -Continue zestril as tolerated only -Hold coreg for now -Continue lasix diuresis and follow volume status and renal function -continue statin - no new labs today, monitor daily BMP and keep K>4 and Mg>2 Consultation Date/Type/Reason Admit Date/Time Oct 02, 2018 at 20:53 Initial Consult Date Type of Consult Cardiology Requesting Provider: DAMIR LATIF Date/Time of Note DATE: 10/05/18 TIME: 12:08 Exam/Review of Systems Vital Signs Vitals Vital Signs Date Temp Pulse Resp B/P (MAP) Pulse Ox O2 O2 Flow FiO2 Time Delivery Rate 10/05/18 97.9 59 20 96/54 (68) 94 Room Air 11:22 Intake and Output 10/04/18 10/04/18 10/05/18 1515:00 23:00 07:00 IntakeIntake Total 960 ml 1690 ml 800 ml OutputOutput Total 400 ml 800 ml 600 ml BalanceBalance 560 ml 890 ml 200 ml Labs Result Diagram: 10/03/1852110/03/18521 Results 24hrs Laboratory Tests Test 10/04/18 16:41 10/04/18 20:19 10/05/18 07:57 Bedside Glucose 97 122 93 Medications Medications Current Medications Sodium Chloride 1,000 ml @ 100 mls/hr Q10H IV Last administered on 10/04/18 22:17; Admin Dose 100 MLS/HR; Start 10/02/18 at 21:11 IV Flush (NS 3 ml) 3 ml PER PROTOCOL IV ; Start 10/02/18 at 21:30 Ondansetron HCl (Zofran Inj) 4 mg Q6H PRN IV NAUSEA/VOMITING; Start 10/02/18 at 21:30 Acetaminophen (Tylenol Tab) 650 mg Q6H PRN PO .PAIN 1-3 OR TEMP; Start 10/02/18 at 21:30 Morphine Sulfate (morphine) 2 mg Q4H PRN IV .PAIN 7-10; Start 10/02/18 at 21:30 Famotidine (Pepcid) 20 mg DAILY PO Last administered on 10/05/18 09:48; Admin Dose 20 MG; Start 10/03/18 at 09:00 Enoxaparin Sodium (Lovenox) 30 mg DAILY SC Last administered on 10/05/18 10:11; Admin Dose 30 MG; Start 10/03/18 at 09:00 Allopurinol (Zyloprim) 100 mg DAILY PO Last administered on 10/05/18 09:48; Admin Dose 100 MG; Start 10/03/18 at 09:00 Aripiprazole (Abilify) 5 mg DAILY PO Last administered on 10/05/18 09:48; Admin Dose 5 MG; Start 10/03/18 at 09:00 Atorvastatin Calcium (Lipitor) 80 mg QHS PO Last administered on 10/04/18 20:21; Admin Dose 80 MG; Start 10/03/18 at 21:00 Carvedilol (Coreg) 3.125 mg BID PO Last administered on 10/03/18 09:16; Admin Dose 3.125 MG; Start 10/03/18 at 09:00 Digoxin (Digoxin) 0.125 mg DAILY PO Last administered on 10/05/18 09:49; Admin Dose 0.125 MG; Start 10/03/18 at 09:00 Furosemide (Lasix) 20 mg DAILY PO Last administered on 10/04/18 09:39; Admin Dose 20 MG; Start 10/03/18 at 09:00 Glimepiride (Amaryl) 2 mg WITH BREAKFAST PO ; Start 10/03/18 at 08:00; Status Hold Lamotrigine (Lamictal) 100 mg BID PO Last administered on 10/05/18 09:48; Admin Dose 100 MG; Start 10/03/18 at 09:00 Levothyroxine Sodium (Synthroid) 150 mcg BEFORE BREAKFAST PO Last administered on 10/05/18 06:17; Admin Dose 150 MCG; Start 10/03/18 at 07:00 Lisinopril (Zestril) 2.5 mg DAILY PO Last administered on 10/03/18 09:17; Admin Dose 2.5 MG; Start 10/03/18 at 09:00 Diagnostic Test (Pha) (Accu-Chek) 1 ea AC MEALS AND BEDTIME XX Last administered on 10/05/18 07:00; Admin Dose 1 EA; Start 10/03/18 at 07:00 Diagnostic Test (Pha) (Accu-Chek) 1 ea 02 XX ; Start 10/04/18 at 02:00 Insulin Aspart (Novolog Insulin Pen) NOVOLOG *MODERATE* ALGORITHM WITH MEALS BEDTIME SC Last administered on 10/04/18at 12:29; Admin Dose 6 UNIT; Start 10/03/18 at 08:00 Miscellaneous Information 1 ea NOTE XX ; Start 10/03/18 at 02:30 Glucose (Glutose) 15 gm Q15M PRN PO DECREASED GLUCOSE; Start 10/03/18 at 02:30 Glucose (Glutose) 22.5 gm Q15M PRN PO DECREASED GLUCOSE; Start 10/03/18 at 02:30 Dextrose (D50w Syringe) 25 ml Q15M PRN IV DECREASED GLUCOSE; Start 10/03/18 at 02:30 Dextrose (D50w Syringe) 50 ml Q15M PRN IV DECREASED GLUCOSE; Start 10/03/18 at 02:30 Glucagon (Glucagen) 1 mg Q15M PRN IM DECREASED GLUCOSE; Start 10/03/18 at 02:30 Glucose (Glutose) 15 gm Q15M PRN BUCCAL DECREASED GLUCOSE; Start 10/03/18 at 02:30 Cyanocobalamin (Vitamin B12) 1,000 mcg DAILY PO Last administered on 10/05/18at 09:48; Admin Dose 1,000 MCG; Start 10/03/18 at 09:00 CALIXTO ALVAREZ DO Oct 05, 2018 12:11
[2018-10-05] MEDS: ATORVASTATIN 80 MG TAB PO SCH (21:47)
[2018-10-06] MEDS: ACCU-CHEK XX SCH ×5 (02:00→20:40)
[2018-10-06 03:35] VITALS: BP 127/58; PULSE 53; RESP 18
[2018-10-06 07:40] VITALS: BP 113/56; PULSE 59; RESP 18
[2018-10-06] MEDS: LEVOTHYROXINE 150 MCG TAB PO SCH (07:45)
[2018-10-06] MEDS: INSULIN ASPART [NOVOLOG] 3 ML PEN SC SCH ×4 (07:46→20:40)
[2018-10-06] MEDS: LAMOTRIGINE 100 MG TAB PO SCH ×2 (08:09→20:43)
[2018-10-06] MEDS: FUROSEMIDE 20 MG TAB PO SCH (08:09)
[2018-10-06] MEDS: LISINOPRIL 5 MG TAB PO SCH (08:09)
[2018-10-06] MEDS: ALLOPURINOL 100 MG TAB PO SCH (08:10)
[2018-10-06] MEDS: ARIPIPRAZOLE 5 MG TAB PO SCH (08:10)
[2018-10-06] MEDS: FAMOTIDINE 20 MG TAB PO SCH (08:10)
[2018-10-06] MEDS: CYANOCOBALAMIN 500 MCG TAB PO SCH (08:10)
[2018-10-06] MEDS: DIGOXIN 0.125 MG TAB PO SCH (08:11)
[2018-10-06] MEDS: ENOXAPARIN 30 MG/0.3 ML SYG SC SCH (08:17)
--- NOTE | 2018-10-06 11:01 | CONS ---
Assessment/Plan Assessment/Plan Hospital Course (Demo Recall) Subjective No acute events. Gen: Denies fever, chills CV: Denies chest pain, palpitations, SOB, CHOE, orthopnea, PND, edema, claudication Resp: Denies SOB or cough GI: Denies nausea, vomiting, diarrhea, constipation, abdominal pain Neuro: Denies lightheadedness, dizziness, presyncope/syncope Medications and allergies reviewed Past medical, surgical, family and social history reviewed. Objective General: WD/WN, NAD HEENT: NC/AT, PERRLA, dry mucus membranes CV: RRR, grade 1/6 systolic murmur, S1/S2, no S3/S4, no JVD, no carotid bruits Respiratory: CTAB, no W/C/R, non-labored breathing GI: abdomen soft, NT/ND, normoactive bowel sounds Vascular: extremities are warm, 2+ radial/DT/PT pulses bilaterally, no edema Neuro: A/O x3, no focal deficits Assessment & Plan IMPRESSION: 1. Automatic implantable cardioverter defibrillator with possible dysfunction, failure to capture, s/p adjustment of [employer] device settings 2. Dizziness. likely d/t pacemaker dysfunction. 3. Cardiomyopathy with severely depressed left ventricular ejection fraction of approximately 25% with congestive heart failure, systolic, acute on chronic.- neg trop x 3 4. Renal failure, acute on chronic. 5. Borderline hypotension in the setting of heart dysfunction. 6. Diabetes mellitus. 7. Recurrent falls. 8. Hypothyroidism. REcc: - will stop Coreg 3.125mg due to low HR and BP -Tele -s/p interrogation and adjustment to ICD/PPM -Continue zestril as tolerated only -Continue lasix diuresis and follow volume status and renal function -continue statin - no new labs today, monitor daily BMP and keep K>4 and Mg>2 Consultation Date/Type/Reason Admit Date/Time Oct 02, 2018 at 20:53 Initial Consult Date Type of Consult Cardiology Requesting Provider: DAMIR LATIF Date/Time of Note DATE: 10/06/18 TIME: 10:59 Exam/Review of Systems Vital Signs Vitals Vital Signs Date Temp Pulse Resp B/P (MAP) Pulse Ox O2 O2 Flow FiO2 Time Delivery Rate 10/06/18 98.0 59 18 113/56 95 07:40 (75) 10/05/18 Room Air 15:20 Intake and Output 10/05/18 10/05/18 10/06/18 1515:00 23:00 07:00 IntakeIntake Total 360 ml 600 ml OutputOutput Total 250 ml 325 ml 300 ml BalanceBalance 110 ml 275 ml -300 ml Labs Result Diagram: 10/03/18 0522 10/03/18 0522 Results 24hrs Laboratory Tests Test 10/05/18 12:26 10/05/18 17:14 10/05/18 21:46 10/06/18 07:43 Bedside Glucose 180 128 149 113 Medications Medications Current Medications IV Flush (NS 3 ml) 3 ml PER PROTOCOL IV ; Start 10/02/18 at 21:30 Ondansetron HCl (Zofran Inj) 4 mg Q6H PRN IV NAUSEA/VOMITING; Start 10/02/18 at 21:30 Acetaminophen (Tylenol Tab) 650 mg Q6H PRN PO .PAIN 1-3 OR TEMP; Start 10/02/18 at 21:30 Morphine Sulfate (morphine) 2 mg Q4H PRN IV .PAIN 7-10; Start 10/02/18 at 21:30 Famotidine (Pepcid) 20 mg DAILY PO Last administered on 10/06/18at 08:10; Admin Dose 20 MG; Start 10/03/18 at 09:00 Enoxaparin Sodium (Lovenox) 30 mg DAILY SC Last administered on 10/06/18at 08:17; Admin Dose 30 MG; Start 10/03/18 at 09:00 Allopurinol (Zyloprim) 100 mg DAILY PO Last administered on 10/06/18at 08:10; Admin Dose 100 MG; Start 10/03/18 at 09:00 Aripiprazole (Abilify) 5 mg DAILY PO Last administered on 10/06/18at 08:10; Admin Dose 5 MG; Start 10/03/18 at 09:00 Atorvastatin Calcium (Lipitor) 80 mg QHS PO Last administered on 10/05/18at 21:47; Admin Dose 80 MG; Start 10/03/18 at 21:00 Carvedilol (Coreg) 3.125 mg BID PO Last administered on 10/03/18at 09:16; Admin Dose 3.125 MG; Start 10/03/18 at 09:00 Digoxin (Digoxin) 0.125 mg DAILY PO Last administered on 10/05/18 09:49; Admin Dose 0.125 MG; Start 10/03/18 at 09:00 Furosemide (Lasix) 20 mg DAILY PO Last administered on 10/06/18at 08:09; Admin Dose 20 MG; Start 10/03/18 at 09:00 Glimepiride (Amaryl) 2 mg WITH BREAKFAST PO ; Start 10/03/18 at 08:00; Status Hold Lamotrigine (Lamictal) 100 mg BID PO Last administered on 10/06/18at 08:09; Admin Dose 100 MG; Start 10/03/18 at 09:00 Levothyroxine Sodium (Synthroid) 150 mcg BEFORE BREAKFAST PO Last administered on 10/06/18 07:45; Admin Dose 150 MCG; Start 10/03/18 at 07:00 Lisinopril (Zestril) 2.5 mg DAILY PO Last administered on 10/06/18 08:09; Admin Dose 2.5 MG; Start 10/03/18 at 09:00 Diagnostic Test (Pha) (Accu-Chek) 1 ea AC MEALS AND BEDTIME XX Last administered on 10/06/18at 07:40; Admin Dose 1 EA; Start 10/03/18 at 07:00 Diagnostic Test (Pha) (Accu-Chek) 1 ea 02 XX ; Start 10/04/18 at 02:00 Insulin Aspart (Novolog Insulin Pen) NOVOLOG *MODERATE* ALGORITHM WITH MEALS BEDTIME SC Last administered on 10/05/18at 12:59; Admin Dose 4 UNIT; Start 10/03/18 at 08:00 Miscellaneous Information 1 ea NOTE XX ; Start 10/03/18 at 02:30 Glucose (Glutose) 15 gm Q15M PRN PO DECREASED GLUCOSE; Start 10/03/18 at 02:30 Glucose (Glutose) 22.5 gm Q15M PRN PO DECREASED GLUCOSE; Start 10/03/18 at 02:30 Dextrose (D50w Syringe) 25 ml Q15M PRN IV DECREASED GLUCOSE; Start 10/03/18 at 02:30 Dextrose (D50w Syringe) 50 ml Q15M PRN IV DECREASED GLUCOSE; Start 10/03/18 at 02:30 Glucagon (Glucagen) 1 mg Q15M PRN IM DECREASED GLUCOSE; Start 10/03/18 at 02:30 Glucose (Glutose) 15 gm Q15M PRN BUCCAL DECREASED GLUCOSE; Start 10/03/18 at 02:30 Cyanocobalamin (Vitamin B12) 1,000 mcg DAILY PO Last administered on 10/06/18at 08:10; Admin Dose 1,000 MCG; Start 10/03/18 at 09:00 CALIXTO ALVAREZ DO Oct 06, 2018 11:01
--- NOTE | 2018-10-06 11:38 | PN ---
Date/Time of Note Date/Time of Note DATE: 10/06/18 TIME: 11:38 Assessment/Plan VTE Prophylaxis Risk score (from Ns)>0 risk: 6 SCD applied (from Nsg): Yes Pharmacological prophylaxis: LMWH Lines/Catheters IV Catheter Type (from Nrsg): Peripheral IV Assessment/Plan Hospital Course 1) dehydration - IV fluids - monitor clinically 2) cardiomyopathy - consult cardiology 3) renal insufficiency - probably secondary to #1, will monitor BUN/Cr levels 4) diabetes - monitor blood sugars - sliding scale insulin Result Diagram: 10/03/1852110/03/18521 Results 24hrs Laboratory Tests Test 10/05/18 12:26 10/05/18 17:14 10/05/18 21:46 10/06/18 07:43 Bedside Glucose 180 128 149 113 Test 10/06/18 11:24 Bedside Glucose 204 Subjective 24 Hr Interval Summary Free Text/Dictation Patient has no complaints Exam/Review of Systems Exam Vitals Vital Signs Date Temp Pulse Resp B/P (MAP) Pulse Ox O2 O2 Flow FiO2 Time Delivery Rate 10/06/18 98.0 59 18 113/56 95 07:40 (75) 10/05/18 Room Air 15:20 Intake and Output 10/05/18 10/05/18 10/06/18 1515:00 23:00 07:00 IntakeIntake Total 360 ml 600 ml OutputOutput Total 250 ml 325 ml 300 ml BalanceBalance 110 ml 275 ml -300 ml Constitutional: well developed Head: normocephalic, atraumatic Neck: supple Respiratory: diminished breath sounds Cardiovascular: regular rate and rhythm Gastrointestinal: soft, non-tender Extremities: normal pulses Results Results 24hrs Laboratory Tests Test 10/05/18 12:26 10/05/18 17:14 10/05/18 21:46 10/06/18 07:43 Bedside Glucose 180 128 149 113 Test 10/06/18 11:24 Bedside Glucose 204 Medications Medication Current Medications IV Flush (NS 3 ml) 3 ml PER PROTOCOL IV ; Start 10/02/18 at 21:30 Ondansetron HCl (Zofran Inj) 4 mg Q6H PRN IV NAUSEA/VOMITING; Start 10/02/18 at 21:30 Acetaminophen (Tylenol Tab) 650 mg Q6H PRN PO .PAIN 1-3 OR TEMP; Start 10/02/18 at 21:30 Morphine Sulfate (morphine) 2 mg Q4H PRN IV .PAIN 7-10; Start 10/02/18 at 21:30 Famotidine (Pepcid) 20 mg DAILY PO Last administered on 10/06/18 08:10; Admin Dose 20 MG; Start 10/03/18 at 09:00 Enoxaparin Sodium (Lovenox) 30 mg DAILY SC Last administered on 10/06/18 08:17; Admin Dose 30 MG; Start 10/03/18 at 09:00 Allopurinol (Zyloprim) 100 mg DAILY PO Last administered on 10/06/18 08:10; Admin Dose 100 MG; Start 10/03/18 at 09:00 Aripiprazole (Abilify) 5 mg DAILY PO Last administered on 10/06/18 08:10; Admin Dose 5 MG; Start 10/03/18 at 09:00 Atorvastatin Calcium (Lipitor) 80 mg QHS PO Last administered on 10/05/18 21:47; Admin Dose 80 MG; Start 10/03/18 at 21:00 Digoxin (Digoxin) 0.125 mg DAILY PO Last administered on 10/05/18 09:49; Admin Dose 0.125 MG; Start 10/03/18 at 09:00 Furosemide (Lasix) 20 mg DAILY PO Last administered on 10/06/18 08:09; Admin Dose 20 MG; Start 10/03/18 at 09:00 Glimepiride (Amaryl) 2 mg WITH BREAKFAST PO ; Start 10/03/18 at 08:00; Status Hold Lamotrigine (Lamictal) 100 mg BID PO Last administered on 10/06/18 08:09; Admin Dose 100 MG; Start 10/03/18 at 09:00 Levothyroxine Sodium (Synthroid) 150 mcg BEFORE BREAKFAST PO Last administered on 10/06/18 07:45; Admin Dose 150 MCG; Start 10/03/18 at 07:00 Lisinopril (Zestril) 2.5 mg DAILY PO Last administered on 10/06/18 08:09; Admin Dose 2.5 MG; Start 10/03/18 at 09:00 Diagnostic Test (Pha) (Accu-Chek) 1 ea AC MEALS AND BEDTIME XX Last administered on 8/11/19at 11:24; Admin Dose 1 EA; Start 10/03/18 at 07:00 Diagnostic Test (Pha) (Accu-Chek) 1 ea 02 XX ; Start 10/04/18 at 02:00 Insulin Aspart (Novolog Insulin Pen) NOVOLOG *MODERATE* ALGORITHM WITH MEALS BEDTIME SC Last administered on 10/06/18at 11:28; Admin Dose 4 UNIT; Start 10/03/18 at 08:00 Miscellaneous Information 1 ea NOTE XX ; Start 10/03/18 at 02:30 Glucose (Glutose) 15 gm Q15M PRN PO DECREASED GLUCOSE; Start 10/03/18 at 02:30 Glucose (Glutose) 22.5 gm Q15M PRN PO DECREASED GLUCOSE; Start 10/03/18 at 02:30 Dextrose (D50w Syringe) 25 ml Q15M PRN IV DECREASED GLUCOSE; Start 10/03/18 at 02:30 Dextrose (D50w Syringe) 50 ml Q15M PRN IV DECREASED GLUCOSE; Start 10/03/18 at 02:30 Glucagon (Glucagen) 1 mg Q15M PRN IM DECREASED GLUCOSE; Start 10/03/18 at 02:30 Glucose (Glutose) 15 gm Q15M PRN BUCCAL DECREASED GLUCOSE; Start 10/03/18 at 02:30 Cyanocobalamin (Vitamin B12) 1,000 mcg DAILY PO Last administered on 10/06/18at 08:10; Admin Dose 1,000 MCG; Start 10/03/18 at 09:00 DAMIR LATIF Oct 06, 2018 11:38
[2018-10-06 11:46] VITALS: BP 94/56; PULSE 67; RESP 18
--- NOTE | 2018-10-06 15:31 | CONS ---
Assessment/Plan Assessment/Plan Assessment/Plan (Daily) 1. acute kidney injury on CKD III due to prerenal azotemia + hemodynamics - BUN/Cr on admission - trended own to 41/1.94 as of 10/03 -GI bleed 2. Hx of Chronic right SPEARER territory infarct 3. H/o Myelodysplastic syndrome 4.H/o CAD with previous stent placement 5. H/o Ischemic Cardiomyopathy s/p AICD placement 6. H/o COPD 7. H/o DM II- Hgb 6.5 8. H/o Hypothyroidism 9. 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 S/p Aortic valve replacement in 2015 11. Current smoker - provide smoking cessation Plan : - Cont tele monitoring -BUN/Cr on admission - trended own to 41/1.94 as of 10/03; other electrolytes normal - Patient LVEF is 25 % so we will give gentle hydration of IVF NS at 50 cc/hr - am labs - continue Lasix 20mg pO daily - depending on labs in AM, we will decide for further IVF hydration. - Avoid nephrotoxic medications, renally dose all meds -Cardiology follows Patient seen in collaboration with Dr Rony Novak ; will follow up , Thanks for consultation Consultation Date/Type/Reason Admit Date/Time Oct 02, 2018 at 20:53 Date/Time of Note DATE: 10/06/18 TIME: 15:13 Hx of Present Illness Hx of Present Illness The patient is a 78-year-old male with past history of CAD, history of DVT, status post IVC filter placement, GI bleed.diabetes mellitus, history of CVA, gout, dyslipidemia, ischemic cardiomyopathy with low EF of 25%, chronic kidney disease, COPD, hypothyroidism, AICD, aortic valve replacement, stent PCI . Patient got admitted for c/o lightheadedness, dizziness, nausea but no vomiting x 1 week, and decreased appetite as well. Denies syncope, near syncope, neck pain, chest pain, dyspnea, abdominal pain, vomiting, dysuria. Denies drinking but smokes socially. BUN/Cr on admission - other electrolytes normal, renal has been consulted for acute Renal failure. 04/2015 got admitted at [facility] with symptomatic anemia. The patient had a full anemia workup done at that time, which was virtually negative and there was no evidence of iron deficiency, vitamin B12, folate deficiency, or hemolysis. The patient thus underwent a bone marrow biopsy whose flow cytometry was negative, but the cytogenetics were complex consistent with a poor risk myelodysplastic syndrome. Pt did not respond to he Epogen initially so subsequently he received 5 cycles of Vidaza and his Hg responded well 06/2015 His Hb was normal in 2017 then he did not follow up with beater tender regularly . 01/2018 pt presents to [facility] with symptomatic anemia and a Hg 6.2. He has since received 2 units of PRBCs. He was found to be severely iron deficient and has been started on IV iron. He is due to get a colonoscopy during this admission. He is also scheduled for a bone marrow bx. 08/19/2018 Patient was admitted with dizziness and MELINDA. 08/2018 Patient was admitted with dizziness and MELINDA. Renal was consulted for that as well 10/02/2018 BUN/Cr on admission 52/2.36- other electrolytes normal, renal has been consulted for acute Renal failure. Past Medical History Past medical history: CAD, history of DVT, GI bleed,diabetes mellitus, history of CVA, gout, dyslipidemia, ischemic cardiomyopathy with low EF of 25%, chronic kidney disease, COPD, hypothyroidism Past Surgical History Past surgical history: AICD, aortic valve replacement, stent PCI, status post IVC filter placement ROS All systems reviewed and are negative except as per history of present illness. Allergies Allergies: Coded Allergies: iodine (Verified Allergy, Mild, 10/02/18) procainamide (Verified Allergy, Mild, 10/02/18) PMhx/Soc History of Surgery: Yes (pacemaker, bilateral knee, heart valve, status post IVC filter placement) Anesthesia Reaction: No Hx Neurological Disorder: Yes (hx stroke) Hx Respiratory Disorders: Yes (COPD) Hx Cardiac Disorders: Yes (pacemaker, stents, heart attack, DVT) Hx Psychiatric Problems: Yes (depression, bipolar) Hx Miscellaneous Medical Probl: Anemia, GI Bleed Hx Alcohol Use: No Hx Substance Use: No Hx Tobacco Use: Yes Smoking Status: Current every day smoker ENT: no complaints Respiratory: no complaints Cardiovascular: no complaints Gastrointestinal: no complaints Musculoskeletal: other (feels tired/weak) Skin: no complaints Neurologic: no complaints Endocrine: no complaints Psychological: nl mood/affect Immunologic: no complaints Past Medical History Medical History: diabetes, high cholesterol, hypertension Home Meds Reported Medications Furosemide* (Furosemide*) 20 Mg Tablet, 20 MG PO DAILY, #60 TAB 10/02/18 Cyanocobalamin (Vitamin B-12) (Vitamin B-12) 1,000 Mcg Capsule, 1000 MCG PO DAILY, CAP 10/02/18 Aripiprazole* (Abilify*) 5 Mg Tab, 5 MG PO DAILY, #30 TAB 10/02/18 Atorvastatin* (Atorvastatin*) 80 Mg Tablet, 80 MG PO QHS, #30 TAB 10/02/18 Lisinopril* (Lisinopril*) 2.5 Mg Tablet, 2.5 MG PO DAILY, #30 TAB 10/02/18 Levothyroxine Sodium* (Levothyroxine Sodium*) 150 Mcg Tablet, 150 MCG PO BEFORE BREAKFAST, #30 TAB 10/02/18 Allopurinol* (Allopurinol*) 100 Mg Tablet, 100 MG PO DAILY, TAB 10/02/18 Digoxin* (Digitek*) 125 Mcg Tablet, 0.125 MG PO DAILY, TAB 10/02/18 Carvedilol* (Carvedilol*) 3.125 Mg Tablet, 3.125 MG PO BID, #60 TAB 10/02/18 Pantoprazole* (Pantoprazole*) 40 Mg Tablet.dr, 40 MG PO AC BREAKFAST, TAB 10/02/18 Lamotrigine* (Lamotrigine*) 100 Mg Tablet, 100 MG PO BID, TAB 10/02/18 Glimepiride* (Glimepiride*) 2 Mg Tablet, 2 MG PO WITH BREAKFAST, TAB 10/02/18 Discontinued Reported Medications Aripiprazole (Aripiprazole) 5 Mg Tablet, 0.5 TAB ORAL DAILY 09/16/18 Lisinopril* (Lisinopril*) 2.5 Mg Tablet, 1 TAB ORAL DAILY 09/16/18 Acetaminophen* (Acetaminophen*) 500 MG Extra Strength Tablet, 500 MG PO DAILY, TAB 09/16/18 Lamotrigine* (Lamotrigine*) 100 Mg Tablet, 1 TAB ORAL BID 09/16/18 Digoxin* (Lanoxin*) 0.125 Mg Tablet, 0.125 MG PO DAILY, TAB 01/28/18 Glimepiride* (Glimepiride*) 2 Mg Tablet, 2 MG PO WITH BREAKFAST, TAB 01/28/18 Furosemide* (Lasix*) 20 Mg Tablet, 20 MG PO DAILY, TAB 01/28/18 Carvedilol* (Carvedilol*) 3.125 Mg Tablet, 3.125 MG PO BID, #60 TAB 01/28/18 Pantoprazole* (Protonix*) 40 Mg Tablet.dr, 40 MG PO DAILY, TAB 01/28/18 Levothyroxine Sodium* (Levoxyl*) 150 Mcg Tablet, 150 MCG PO BEFORE BREAKFAST, #30 TAB 01/28/18 Atorvastatin* (Atorvastatin*) 80 Mg Tablet, 80 MG PO QHS, #30 TAB 01/28/18 Discontinued Scripts Allopurinol* (Allopurinol*) 100 Mg Tablet, 100 MG PO DAILY for 30 Days, #30 TAB Prov:JOS FOSTER MD 02/13/18 Cyanocobalamin* (Vitamin B12*) 500 Mcg Tab, 1000 MCG PO DAILY for 30 Days, #30 T AB Prov:JOS FOSTER MD 02/13/18 Aspirin Delayed Release (Aspirin Delayed Release) 81 Mg Tablet.dr, 81 MG PO DAILY for 30 Days, #30 Prov:JOS FOSTER MD 02/13/18 Medications Current Medications IV Flush (NS 3 ml) 3 ml PER PROTOCOL IV ; Start 10/02/18 at 21:30 Ondansetron HCl (Zofran Inj) 4 mg Q6H PRN IV NAUSEA/VOMITING; Start 10/02/18 at 21:30 Acetaminophen (Tylenol Tab) 650 mg Q6H PRN PO .PAIN 1-3 OR TEMP; Start 10/02/18 at 21:30 Morphine Sulfate (morphine) 2 mg Q4H PRN IV .PAIN 7-10; Start 10/02/18 at 21:30 Famotidine (Pepcid) 20 mg DAILY PO Last administered on 10/06/18at 08:10; Admin Dose 20 MG; Start 10/03/18 at 09:00 Enoxaparin Sodium (Lovenox) 30 mg DAILY SC Last administered on 10/06/18at 08:17; Admin Dose 30 MG; Start 10/03/18 at 09:00 Allopurinol (Zyloprim) 100 mg DAILY PO Last administered on 10/06/18at 08:10; Admin Dose 100 MG; Start 10/03/18 at 09:00 Aripiprazole (Abilify) 5 mg DAILY PO Last administered on 10/06/18 08:10; Admin Dose 5 MG; Start 10/03/18 at 09:00 Atorvastatin Calcium (Lipitor) 80 mg QHS PO Last administered on 10/05/18 21:47; Admin Dose 80 MG; Start 10/03/18 at 21:00 Digoxin (Digoxin) 0.125 mg DAILY PO Last administered on 10/05/18 09:49; Admin Dose 0.125 MG; Start 10/03/18 at 09:00 Furosemide (Lasix) 20 mg DAILY PO Last administered on 10/06/18 08:09; Admin Dose 20 MG; Start 10/03/18 at 09:00 Glimepiride (Amaryl) 2 mg WITH BREAKFAST PO ; Start 10/03/18 at 08:00; Status Hold Lamotrigine (Lamictal) 100 mg BID PO Last administered on 10/06/18 08:09; Admin Dose 100 MG; Start 10/03/18 at 09:00 Levothyroxine Sodium (Synthroid) 150 mcg BEFORE BREAKFAST PO Last administered on 10/06/18 07:45; Admin Dose 150 MCG; Start 10/03/18 at 07:00 Lisinopril (Zestril) 2.5 mg DAILY PO Last administered on 10/06/18 08:09; Admin Dose 2.5 MG; Start 10/03/18 at 09:00 Diagnostic Test (Pha) (Accu-Chek) 1 ea AC MEALS AND BEDTIME XX Last administered on 10/06/18 11:24; Admin Dose 1 EA; Start 10/03/18 at 07:00 Diagnostic Test (Pha) (Accu-Chek) 1 ea 02 XX ; Start 10/04/18 at 02:00 Insulin Aspart (Novolog Insulin Pen) NOVOLOG *MODERATE* ALGORITHM WITH MEALS BEDTIME SC Last administered on 10/06/18 11:28; Admin Dose 4 UNIT; Start 10/03/18 at 08:00 Miscellaneous Information 1 ea NOTE XX ; Start 10/03/18 at 02:30 Glucose (Glutose) 15 gm Q15M PRN PO DECREASED GLUCOSE; Start 10/03/18 at 02:30 Glucose (Glutose) 22.5 gm Q15M PRN PO DECREASED GLUCOSE; Start 10/03/18 at 02:30 Dextrose (D50w Syringe) 25 ml Q15M PRN IV DECREASED GLUCOSE; Start 10/03/18 at 02:30 Dextrose (D50w Syringe) 50 ml Q15M PRN IV DECREASED GLUCOSE; Start 10/03/18 at 02:30 Glucagon (Glucagen) 1 mg Q15M PRN IM DECREASED GLUCOSE; Start 10/03/18 at 02:30 Glucose (Glutose) 15 gm Q15M PRN BUCCAL DECREASED GLUCOSE; Start 10/03/18 at 02:30 Cyanocobalamin (Vitamin B12) 1,000 mcg DAILY PO Last administered on 10/06/18at 08:10; Admin Dose 1,000 MCG; Start 10/03/18 at 09:00 Allergies: Coded Allergies: iodine (Verified Allergy, Mild, 10/02/18) procainamide (Verified Allergy, Mild, 10/02/18) Past Surgical History Past Surgical Hx: angioplasty, cholecystectomy, other Family History Significant Family History: no pertinent family hx Social History Smoking Status: Current every day smoker Exam/Review of Systems Exam Vitals Vital Signs Date Temp Pulse Resp B/P (MAP) Pulse Ox O2 O2 Flow FiO2 Time Delivery Rate 10/06/18 97.8 67 18 94/56 (69) 94 11:46 10/05/18 Room Air 15:20 Intake and Output 10/05/18 10/05/18 10/06/18 1515:00 23:00 07:00 IntakeIntake Total 360 ml 600 ml OutputOutput Total 250 ml 325 ml 300 ml BalanceBalance 110 ml 275 ml -300 ml Constitutional: alert, well developed Psych: nl mood/affect Head: atraumatic Eyes: nl lids, nl sclera ENMT: nl external ears & nose Neck: non-tender Respiratory: clear to auscultation Cardiovascular: nl pulses, other (S1S2) Gastrointestinal: soft, non-tender Musculoskeletal: nl extremities to inspection Extremities: normal pulses Neurological: nl speech Skin: other (No skin rash noted) Results Result Diagram: 10/03/1852110/03/18521 Results 24hrs Laboratory Tests Test 10/05/18 17:14 10/05/18 21:46 10/06/18 07:43 10/06/18 11:24 Bedside Glucose 128 149 [address] BRAIN: 1. Stable moderate to severe central and cortical cerebral atrophy and microvascular white matter disease, without evidence of intracranial hemorrhage, mass, or acute infarct. 2. Evidence of atherosclerosis of the intracranial internal carotid and vertebral arteries. CXR No evidence for acute intrathoracic pathology or interval change from 09/21/2018. Medications Medication Current Medications IV Flush (NS 3 ml) 3 ml PER PROTOCOL IV ; Start 10/02/18 at 21:30 Ondansetron HCl (Zofran Inj) 4 mg Q6H PRN IV NAUSEA/VOMITING; Start 10/02/18 at 21:30 Acetaminophen (Tylenol Tab) 650 mg Q6H PRN PO .PAIN 1-3 OR TEMP; Start 10/02/18 at 21:30 Morphine Sulfate (morphine) 2 mg Q4H PRN IV .PAIN 7-10; Start 10/02/18 at 21:30 Famotidine (Pepcid) 20 mg DAILY PO Last administered on 10/06/18 08:10; Admin Dose 20 MG; Start 10/03/18 at 09:00 Enoxaparin Sodium (Lovenox) 30 mg DAILY SC Last administered on 10/06/18at 08:17; Admin Dose 30 MG; Start 10/03/18 at 09:00 Allopurinol (Zyloprim) 100 mg DAILY PO Last administered on 10/06/18 08:10; Admin Dose 100 MG; Start 10/03/18 at 09:00 Aripiprazole (Abilify) 5 mg DAILY PO Last administered on 10/06/18 08:10; Admin Dose 5 MG; Start 10/03/18 at 09:00 Atorvastatin Calcium (Lipitor) 80 mg QHS PO Last administered on 10/05/18at 21:47; Admin Dose 80 MG; Start 10/03/18 at 21:00 Digoxin (Digoxin) 0.125 mg DAILY PO Last administered on 10/05/18 09:49; Admin Dose 0.125 MG; Start 10/03/18 at 09:00 Furosemide (Lasix) 20 mg DAILY PO Last administered on 10/06/18at 08:09; Admin Dose 20 MG; Start 10/03/18 at 09:00 Glimepiride (Amaryl) 2 mg WITH BREAKFAST PO ; Start 10/03/18 at 08:00; Status Hold Lamotrigine (Lamictal) 100 mg BID PO Last administered on 10/06/18 08:09; Admin Dose 100 MG; Start 10/03/18 at 09:00 Levothyroxine Sodium (Synthroid) 150 mcg BEFORE BREAKFAST PO Last administered on 10/06/18 07:45; Admin Dose 150 MCG; Start 10/03/18 at 07:00 Lisinopril (Zestril) 2.5 mg DAILY PO Last administered on 10/06/18 08:09; Admin Dose 2.5 MG; Start 10/03/18 at 09:00 Diagnostic Test (Pha) (Accu-Chek) 1 ea AC MEALS AND BEDTIME XX Last administered on 10/06/18 11:24; Admin Dose 1 EA; Start 10/03/18 at 07:00 Diagnostic Test (Pha) (Accu-Chek) 1 ea 02 XX ; Start 10/04/18 at 02:00 Insulin Aspart (Novolog Insulin Pen) NOVOLOG *MODERATE* ALGORITHM WITH MEALS BEDTIME SC Last administered on 10/06/18 11:28; Admin Dose 4 UNIT; Start 10/03/18 at 08:00 Miscellaneous Information 1 ea NOTE XX ; Start 10/03/18 at 02:30 Glucose (Glutose) 15 gm Q15M PRN PO DECREASED GLUCOSE; Start 10/03/18 at 02:30 Glucose (Glutose) 22.5 gm Q15M PRN PO DECREASED GLUCOSE; Start 10/03/18 at 02:30 Dextrose (D50w Syringe) 25 ml Q15M PRN IV DECREASED GLUCOSE; Start 10/03/18 at 02:30 Dextrose (D50w Syringe) 50 ml Q15M PRN IV DECREASED GLUCOSE; Start 10/03/18 at 02:30 Glucagon (Glucagen) 1 mg Q15M PRN IM DECREASED GLUCOSE; Start 10/03/18 at 02:30 Glucose (Glutose) 15 gm Q15M PRN BUCCAL DECREASED GLUCOSE; Start 10/03/18 at 02:30 Cyanocobalamin (Vitamin B12) 1,000 mcg DAILY PO Last administered on 10/06/18 08:10; Admin Dose 1,000 MCG; Start 10/03/18 at 09:00 SOFÍA CHU Oct 06, 2018 15:27
[2018-10-06 15:52] VITALS: BP 108/62; PULSE 57; RESP 18
[2018-10-06] MEDS ORDERED: BISACODYL (EC) 5 MG TAB PO PRN (19:00)
[2018-10-06 20:30] VITALS: BP 105/60; PULSE 59; RESP 18
[2018-10-06] MEDS: ATORVASTATIN 80 MG TAB PO SCH (20:39)
[2018-10-06] MEDS: DOCUSATE SODIUM 100 MG CAP PO SCH (20:39)
[2018-10-06] MEDS: SOD CHLORIDE 0.9% 1,000 ML IV SCH (22:42)
[2018-10-06 23:24] VITALS: BP 112/59; PULSE 60; RESP 17
[2018-10-07] MEDS: ACCU-CHEK XX SCH ×5 (02:21→20:16)
[2018-10-07 04:00] VITALS: BP 98/61; PULSE 50; RESP 18
[2018-10-07] MEDS: LEVOTHYROXINE 150 MCG TAB PO SCH (06:08)
[2018-10-07] MEDS: INSULIN ASPART [NOVOLOG] 3 ML PEN SC SCH ×4 (07:47→20:15)
[2018-10-07 07:48] VITALS: BP 98/57; PULSE 81; RESP 18
[2018-10-07] MEDS: LISINOPRIL 5 MG TAB PO SCH (08:54)
[2018-10-07] MEDS: DIGOXIN 0.125 MG TAB PO SCH (08:54)
[2018-10-07] MEDS: FUROSEMIDE 20 MG TAB PO SCH (08:55)
[2018-10-07] MEDS: DOCUSATE SODIUM 100 MG CAP PO SCH ×2 (09:05→20:15)
[2018-10-07] MEDS: ARIPIPRAZOLE 5 MG TAB PO SCH (09:05)
[2018-10-07] MEDS: LAMOTRIGINE 100 MG TAB PO SCH ×2 (09:05→20:15)
[2018-10-07] MEDS: ALLOPURINOL 100 MG TAB PO SCH (09:05)
[2018-10-07] MEDS: FAMOTIDINE 20 MG TAB PO SCH (09:05)
[2018-10-07] MEDS: CYANOCOBALAMIN 500 MCG TAB PO SCH (09:06)
[2018-10-07] MEDS: ENOXAPARIN 30 MG/0.3 ML SYG SC SCH (09:07)
[2018-10-07] MEDS ORDERED: MAGNESIUM SULFATE 2 GM/50 ML 50 ML IVPB ONE (10:00)
--- NOTE | 2018-10-07 10:59 | CONS ---
Assessment/Plan Assessment/Plan Assessment/Plan (Daily) 1. acute on chronic renal failure 2/2 Hemodynamics 2. H/o Ischemic cardiomyopathy with last known EF of 25% s/p AICD placement 3. H/o CAD with previous Coronary stent placement 4. H/o COPD 5. H/o DM II 6. H/O depression 7. H/o Arthritis 8. H/o CVA Plan: Continue Current care, Expecting Cr to improve BP stable Renal US C/w CKD Cardioloyg following will follow up , Thanks for consultation. Consultation Date/Type/Reason Admit Date/Time Oct 02, 2018 at 20:53 Initial Consult Date Requesting Provider: DAMIR LATIF Date/Time of Note DATE: 10/07/18 TIME: 10:59 24 HR Interval Summary Free Text/Dictation 78-year-old male with a history of a prior ischemic cardiomyopathy with last known EF of 25% by echo January,. History of coronary artery disease with prior stent with last Lexiscan in 03/2017 being negative for inducible ischemia, hypertension, history of ICD placed at [facility] 03/2017, COPD, shortness of breath, who had recently been admitted for dizziness and acute kidney injury. The patient made improvement was discharged to outpatient followup and now represents from his chronic care facility due to ongoing dizziness, lightheadedness, nausea, decreased appetite and per patient, did have recurrent falls when he does not have his walker as he feels recurrent dizziness and weakness in his legs. The patient denies chest pain at this time. pt gets admitted for Possible AICD dysfunctoin, He was noted to have BUN/Cr 21/1.178- Renal has been consulted for acute on chronic renal failure Constitutional: other (dizziness, headache, back pain other ROS negative ) Exam/Review of Systems Exam Vitals Vital Signs Date Temp Pulse Resp B/P (MAP) Pulse Ox O2 O2 Flow FiO2 Time Delivery Rate 10/07/18 98.3 81 18 98/57 (71) 97 07:48 10/05/18 Room Air 15:20 Intake and Output 10/06/18 10/06/18 10/07/18 1515:00 23:00 07:00 IntakeIntake Total 440 ml 50 ml OutputOutput Total 200 ml 1200 ml 210 ml BalanceBalance -200 ml -760 ml -160 ml Constitutional: alert Psych: no complaints Head: normocephalic ENMT: nl external ears & nose Respiratory: clear to auscultation Cardiovascular: regular rate and rhythm, nl pulses Gastrointestinal: soft, non-tender Musculoskeletal: nl extremities to inspection Extremities: normal pulses Neurological: BLOCK SEALER II-XII intact, nl mental status, nl speech, nl strength Skin: nl turgor Lymph: nl lymph nodes Results Result Diagram: 10/07/18 0524 10/07/18 0524 Results 24hrs Laboratory Tests Test 10/06/18 11:24 10/06/18 16:50 10/06/18 20:14 10/07/18 02:08 Bedside Glucose 204 106 128 94 Test 10/07/18 05:24 10/07/18 07:34 10/07/18 07:47 White Blood Count 9.9 # Red Blood Count 3.61 L Hemoglobin 10.5 L Hematocrit 33.1 L Mean Corpuscular 91.7 Volume Mean Corpuscular 29.1 Hemoglobin Mean Corpuscular 31.7 L Hemoglobin Concent Red Cell 14.4 Distribution Width Platelet Count 196 Mean Platelet Volume 10.0 Immature 0.400 Granulocytes % Neutrophils % 72.9 Lymphocytes % 17.5 Monocytes % 7.2 Eosinophils % 1.7 Basophils % 0.3 Nucleated Red Blood 0.0 Cells % Immature 0.040 H Granulocytes # Neutrophils # 7.2 Lymphocytes # 1.7 Monocytes # 0.7 Eosinophils # 0.2 Basophils # 0.0 Nucleated Red Blood 0.0 Cells # Sodium Level 138 Potassium Level 4.3 Chloride Level 103 Carbon Dioxide Level 29 Anion Gap 6 Blood Urea Nitrogen 21 H Creatinine 1.78 H Est Glomerular Filtrat Rate mL/min Glucose Level 89 Calcium Level 9.2 Magnesium Level 1.8 Total Bilirubin 0.4 Direct Bilirubin 0.00 Indirect Bilirubin 0.4 Aspartate Amino 17 Transf (AST/SGOT) Alanine 27 Aminotransferase (AL T/SGPT) Alkaline Phosphatase 61 Total Protein 6.3 Albumin 3.1 L Globulin 3.20 Albumin/Globulin 0.96 Ratio Bedside Glucose 93 100 Medications Medication Current Medications IV Flush (NS 3 ml) 3 ml PER PROTOCOL IV ; Start 10/02/18 at 21:30 Ondansetron HCl (Zofran Inj) 4 mg Q6H PRN IV NAUSEA/VOMITING; Start 10/02/18 at 21:30 Acetaminophen (Tylenol Tab) 650 mg Q6H PRN PO .PAIN 1-3 OR TEMP; Start 10/02/18 at 21:30 Morphine Sulfate (morphine) 2 mg Q4H PRN IV .PAIN 7-10; Start 10/02/18 at 21:30 Famotidine (Pepcid) 20 mg DAILY PO Last administered on 10/07/18 09:05; Admin Dose 20 MG; Start 10/03/18 at 09:00 Enoxaparin Sodium (Lovenox) 30 mg DAILY SC Last administered on 10/07/18 09:07; Admin Dose 30 MG; Start 10/03/18 at 09:00 Allopurinol (Zyloprim) 100 mg DAILY PO Last administered on 10/07/18 09:05; Admin Dose 100 MG; Start 10/03/18 at 09:00 Aripiprazole (Abilify) 5 mg DAILY PO Last administered on 10/07/18 09:05; Admin Dose 5 MG; Start 10/03/18 at 09:00 Atorvastatin Calcium (Lipitor) 80 mg QHS PO Last administered on 10/06/18 20:39; Admin Dose 80 MG; Start 10/03/18 at 21:00 Digoxin (Digoxin) 0.125 mg DAILY PO Last administered on 10/05/18 09:49; Admin Dose 0.125 MG; Start 10/03/18 at 09:00 Furosemide (Lasix) 20 mg DAILY PO Last administered on 10/06/18 08:09; Admin D ose 20 MG; Start 10/03/18 at 09:00 Glimepiride (Amaryl) 2 mg WITH BREAKFAST PO ; Start 10/03/18 at 08:00; Status Hold Lamotrigine (Lamictal) 100 mg BID PO Last administered on 10/07/18 09:05; Admin Dose 100 MG; Start 10/03/18 at 09:00 Levothyroxine Sodium (Synthroid) 150 mcg BEFORE BREAKFAST PO Last administered on 10/07/18 06:08; Admin Dose 150 MCG; Start 10/03/18 at 07:00 Lisinopril (Zestril) 2.5 mg DAILY PO Last administered on 10/06/18 08:09; Admin Dose 2.5 MG; Start 10/03/18 at 09:00 Diagnostic Test (Pha) (Accu-Chek) 1 ea AC MEALS AND BEDTIME XX Last administered on 10/06/18at 20:40; Admin Dose 1 EA; Start 10/03/18 at 07:00 Diagnostic Test (Pha) (Accu-Chek) 1 ea 02 XX Last administered on 10/07/18at 02:21; Admin Dose 1 EA; Start 10/04/18 at 02:00 Insulin Aspart (Novolog Insulin Pen) NOVOLOG *MODERATE* ALGORITHM WITH MEALS BEDTIME SC Last administered on 10/06/18at 11:28; Admin Dose 4 UNIT; Start 10/03/18 at 08:00 Miscellaneous Information 1 ea NOTE XX ; Start 10/03/18 at 02:30 Glucose (Glutose) 15 gm Q15M PRN PO DECREASED GLUCOSE; Start 10/03/18 at 02:30 Glucose (Glutose) 22.5 gm Q15M PRN PO DECREASED GLUCOSE; Start 10/03/18 at 02:30 Dextrose (D50w Syringe) 25 ml Q15M PRN IV DECREASED GLUCOSE; Start 10/03/18 at 02:30 Dextrose (D50w Syringe) 50 ml Q15M PRN IV DECREASED GLUCOSE; Start 10/03/18 at 02:30 Glucagon (Glucagen) 1 mg Q15M PRN IM DECREASED GLUCOSE; Start 10/03/18 at 02:30 Glucose (Glutose) 15 gm Q15M PRN BUCCAL DECREASED GLUCOSE; Start 10/03/18 at 02:30 Cyanocobalamin (Vitamin B12) 1,000 mcg DAILY PO Last administered on 10/07/18at 09:06; Admin Dose 1,000 MCG; Start 10/03/18 at 09:00 Docusate Sodium (Colace) 100 mg BID PO Last administered on 10/07/18at 09:05; Admin Dose 100 MG; Start 10/06/18 at 21:00 Bisacodyl (Dulcolax) 10 mg DAILY PRN PO CONSTIPATION Last administered on 10/07/18at 06:08; Admin Dose 10 MG; Start 10/06/18 at 19:00 Sodium Chloride 1,000 ml @ 50 mls/hr Q20H IV Last administered on 10/06/18at 22:42; Admin Dose 50 MLS/HR; Start 10/06/18 at 22:30 Carvedilol (Coreg) 3.125 mg BID GTB Last administered on 10/07/18at 10:09; Admin Dose 3.125 MG; Start 10/07/18 at 10:00 Magnesium Sulfate 50 ml @ 25 mls/hr ONCE ONCE IVPB Last administered on 10/07/18at 10:10; Admin Dose 25 MLS/HR; Start 10/07/18 at 10:00; Stop 10/07/18 at 11:59 MIHAI JOSEPH MD Oct 07, 2018 10:59
--- NOTE | 2018-10-07 11:05 | CONS ---
Assessment/Plan Assessment/Plan Hospital Course (Demo Recall) IMPRESSION: 1. Automatic implantable cardioverter defibrillator with possible dysfunction, failure to capture. s/p interrogation and adjustment with resolution of failure to capture 2. Dizziness. Rule cardiology, rule out cardiac arrhythmia, rule out pacemaker dysfunction. 3. Cardiomyopathy with severely depressed left ventricular ejection fraction of approximately 25% with congestive heart failure, systolic, acute on chronic.- neg trop x 3 4. Renal failure, acute on chronic. 5. Borderline hypotension in the setting of heart dysfunction. 6. Diabetes mellitus. 7. Recurrent falls. 8. Hypothyroidism. 9. NSVT-recurrent short runs by tele o/n and this am REcc: -Tele -s/p interrogation and adjustment to ICD/PPM this am -Continue zestril as tolerated only -Resume coreg given short runs of NSVT -Continue lasix diuresis and follow volume status and renal function -continue statin -Magnesium repletion keep Mg>2 and K>4 Consultation Date/Type/Reason Admit Date/Time Oct 02, 2018 at 20:53 Initial Consult Date 10/04/18 Type of Consult Cardiology Reason for Consultation cardiomyopathy/NSVT Requesting Provider: DAMIR LATIF Date/Time of Note DATE: 10/07/18 TIME: 11:00 Exam/Review of Systems Vital Signs Vitals Vital Signs Date Temp Pulse Resp B/P (MAP) Pulse Ox O2 O2 Flow FiO2 Time Delivery Rate 10/07/18 98.3 81 18 98/57 (71) 97 07:48 10/05/18 Room Air 15:20 Intake and Output 10/06/18 10/06/18 10/07/18 1515:00 23:00 07:00 IntakeIntake Total 440 ml 50 ml OutputOutput Total 200 ml 1200 ml 210 ml BalanceBalance -200 ml -760 ml -160 ml Exam Exam Review of Systems: CONSTITUTIONAL: No fevers, chills. PULMONARY: No sob CARDIOVASCULAR: No chest pain/palpitations GASTROINTESTINAL: No nausea/vomiting. GENITOURINARY: No hematuria/dysuria. MUSCULOSKELETAL: No myagias/arthalgias. PSYCHIATRIC: The patient denies depression. NEUROLOGIC: No weakness Constitutional: alert Psych: no complaints Head: normocephalic ENMT: mucosa pink and moist Neck: supple, jvd (9 cm water) Respiratory: diminished breath sounds (at bases/B) Cardiovascular: regular rate and rhythm Gastrointestinal: soft, non-tender Musculoskeletal: muscle tone (normal) Extremities: edema (none) Neurological: other (NO focal deficits) Labs Result Diagram: 10/07/1852310/07/18523 Results 24hrs Laboratory Tests Test 10/06/18 11:24 10/06/18 16:50 10/06/18 20:14 10/07/18 02:08 Bedside Glucose 204 106 128 94 Test 10/07/18 05:24 10/07/18 07:34 10/07/18 07:47 White Blood Count 9.9 # Red Blood Count 3.61 L Hemoglobin 10.5 L Hematocrit 33.1 L Mean Corpuscular 91.7 Volume Mean Corpuscular 29.1 Hemoglobin Mean Corpuscular 31.7 L Hemoglobin Concent Red Cell 14.4 Distribution Width Platelet Count 196 Mean Platelet Volume 10.0 Immature 0.400 Granulocytes % Neutrophils % 72.9 Lymphocytes % 17.5 Monocytes % 7.2 Eosinophils % 1.7 Basophils % 0.3 Nucleated Red Blood 0.0 Cells % Immature 0.040 H Granulocytes # Neutrophils # 7.2 Lymphocytes # 1.7 Monocytes # 0.7 Eosinophils # 0.2 Basophils # 0.0 Nucleated Red Blood 0.0 Cells # Sodium Level 138 Potassium Level 4.3 Chloride Level 103 Carbon Dioxide Level 29 Anion Gap 6 Blood Urea Nitrogen 21 H Creatinine 1.78 H Est Glomerular Filtrat Rate mL/min Glucose Level 89 Calcium Level 9.2 Magnesium Level 1.8 Total Bilirubin 0.4 Direct Bilirubin 0.00 Indirect Bilirubin 0.4 Aspartate Amino 17 Transf (AST/SGOT) Alanine 27 Aminotransferase (AL T/SGPT) Alkaline Phosphatase 61 Total Protein 6.3 Albumin 3.1 L Globulin 3.20 Albumin/Globulin 0.96 Ratio Bedside Glucose 93 100 Medications Medications Current Medications IV Flush (NS 3 ml) 3 ml PER PROTOCOL IV ; Start 10/02/18 at 21:30 Ondansetron HCl (Zofran Inj) 4 mg Q6H PRN IV NAUSEA/VOMITING; Start 10/02/18 at 21:30 Acetaminophen (Tylenol Tab) 650 mg Q6H PRN PO .PAIN 1-3 OR TEMP; Start 10/02/18 at 21:30 Morphine Sulfate (morphine) 2 mg Q4H PRN IV .PAIN 7-10; Start 10/02/18 at 21:30 Famotidine (Pepcid) 20 mg DAILY PO Last administered on 10/07/18 09:05; Admin Dose 20 MG; Start 10/03/18 at 09:00 Enoxaparin Sodium (Lovenox) 30 mg DAILY SC Last administered on 10/07/18 09:07; Admin Dose 30 MG; Start 10/03/18 at 09:00 Allopurinol (Zyloprim) 100 mg DAILY PO Last administered on 10/07/18 09:05; Admin Dose 100 MG; Start 10/03/18 at 09:00 Aripiprazole (Abilify) 5 mg DAILY PO Last administered on 10/07/18 09:05; Admin Dose 5 MG; Start 10/03/18 at 09:00 Atorvastatin Calcium (Lipitor) 80 mg QHS PO Last administered on 10/06/18 20 :39; Admin Dose 80 MG; Start 10/03/18 at 21:00 Digoxin (Digoxin) 0.125 mg DAILY PO Last administered on 10/05/18 09:49; Admin Dose 0.125 MG; Start 10/03/18 at 09:00 Furosemide (Lasix) 20 mg DAILY PO Last administered on 10/06/18 08:09; Admin Dose 20 MG; Start 10/03/18 at 09:00 Glimepiride (Amaryl) 2 mg WITH BREAKFAST PO ; Start 10/03/18 at 08:00; Status Hold Lamotrigine (Lamictal) 100 mg BID PO Last administered on 10/07/18 09:05; Admin Dose 100 MG; Start 10/03/18 at 09:00 Levothyroxine Sodium (Synthroid) 150 mcg BEFORE BREAKFAST PO Last administered on 10/07/18 06:08; Admin Dose 150 MCG; Start 10/03/18 at 07:00 Lisinopril (Zestril) 2.5 mg DAILY PO Last administered on 10/06/18 08:09; Admin Dose 2.5 MG; Start 10/03/18 at 09:00 Diagnostic Test (Pha) (Accu-Chek) 1 ea AC MEALS AND BEDTIME XX Last administered on 10/06/18 20:40; Admin Dose 1 EA; Start 10/03/18 at 07:00 Diagnostic Test (Pha) (Accu-Chek) 1 ea 02 XX Last administered on 10/07/18at 02:21; Admin Dose 1 EA; Start 10/04/18 at 02:00 Insulin Aspart (Novolog Insulin Pen) NOVOLOG *MODERATE* ALGORITHM WITH MEALS BEDTIME SC Last administered on 10/06/18at 11:28; Admin Dose 4 UNIT; Start 10/03/18 at 08:00 Miscellaneous Information 1 ea NOTE XX ; Start 10/03/18 at 02:30 Glucose (Glutose) 15 gm Q15M PRN PO DECREASED GLUCOSE; Start 10/03/18 at 02:30 Glucose (Glutose) 22.5 gm Q15M PRN PO DECREASED GLUCOSE; Start 10/03/18 at 02:30 Dextrose (D50w Syringe) 25 ml Q15M PRN IV DECREASED GLUCOSE; Start 10/03/18 at 02:30 Dextrose (D50w Syringe) 50 ml Q15M PRN IV DECREASED GLUCOSE; Start 10/03/18 at 02:30 Glucagon (Glucagen) 1 mg Q15M PRN IM DECREASED GLUCOSE; Start 10/03/18 at 02:30 Glucose (Glutose) 15 gm Q15M PRN BUCCAL DECREASED GLUCOSE; Start 10/03/18 at 02:30 Cyanocobalamin (Vitamin B12) 1,000 mcg DAILY PO Last administered on 10/07/18at 09:06; Admin Dose 1,000 MCG; Start 10/03/18 at 09:00 Docusate Sodium (Colace) 100 mg BID PO Last administered on 10/07/18at 09:05; Admin Dose 100 MG; Start 10/06/18 at 21:00 Bisacodyl (Dulcolax) 10 mg DAILY PRN PO CONSTIPATION Last administered on 10/07/18at 06:08; Admin Dose 10 MG; Start 10/06/18 at 19:00 Sodium Chloride 1,000 ml @ 50 mls/hr Q20H IV Last administered on 10/06/18at 22:42; Admin Dose 50 MLS/HR; Start 10/06/18 at 22:30 Carvedilol (Coreg) 3.125 mg BID GTB Last administered on 10/07/18at 10:09; Admin Dose 3.125 MG; Start 10/07/18 at 10:00 Magnesium Sulfate 50 ml @ 25 mls/hr ONCE ONCE IVPB Last administered on 10/07/18at 10:10; Admin Dose 25 MLS/HR; Start 10/07/18 at 10:00; Stop 10/07/18 at 11:59 JACLYN RODRIGUEZ Oct 07, 2018 11:05
[2018-10-07 11:25] VITALS: BP 96/54; PULSE 62; RESP 19
[2018-10-07] MEDS: POLYETHYLENE GLYCOL 17 GM PACKET PO SCH (13:39)
[2018-10-07 15:56] VITALS: BP 101/53; PULSE 59; RESP 18
--- NOTE | 2018-10-07 16:02 | PN ---
Date/Time of Note Date/Time of Note DATE: 10/07/18 TIME: 15:54 Assessment/Plan VTE Prophylaxis Risk score (from Ns)>0 risk: 7 SCD applied (from Ns): Yes Pharmacological prophylaxis: LMWH Lines/Catheters IV C[facility]ter Type [facility]from [facility]): Peripheral IV Assessment/Plan Hospital Course Patient had a recurrent short runs of NSVT, currently paced rhythm patient denies any chest pain denies shortness of breath, looks comfortable. Continue telemetry monitoring. Assessment/Plan -Automatic implantable cardioverter defibrillator with possible dysfunction, failure to capture. s/p interrogation and adjustment with resolution of failure to capture. Dr. Choudhury is following in in cardiology consultation. -Dizziness. rule out cardiac arrhythmia, rule out pacemaker dysfunction. -Ischemic cardiomyopathy with ejection fraction of 25%. -Acute kidney injury on chronic kidney disease stage III, continue to monitor BUN and creatinine. Dr. Novak is following in nephrology consultation -Coronary artery disease with history of stent placement. Continue aspirin. -Status post transcatheter aortic valve replacement in 2016. -Chronic obstructive pulmonary disease. -Diabetes mellitus. Continue NovoLog per mild algorithm sliding scale. -Hypothyroidism, continue levothyroxine -Hx of ICD placement for symptomatic bradycardia. 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 Plan of care discussed with Dr. Giron. Result Diagram: 10/07/1852310/07/18 0524 Results 24hrs Laboratory Tests Test 10/06/18 16:50 10/06/18 20:14 10/07/18 02:08 10/07/18 05:24 Bedside Glucose 106 128 94 White Blood Count 9.9 # Red Blood Count 3.61 L Hemoglobin 10.5 L Hematocrit 33.1 L Mean Corpuscular 91.7 Volume Mean Corpuscular 29.1 Hemoglobin Mean Corpuscular 31.7 L Hemoglobin Concent Red Cell 14.4 Distribution Width Platelet Count 196 Mean Platelet Volume 10.0 Immature 0.400 Granulocytes % Neutrophils % 72.9 Lymphocytes % 17.5 Monocytes % 7.2 Eosinophils % 1.7 Basophils % 0.3 Nucleated Red Blood 0.0 Cells % Immature 0.040 H Granulocytes # Neutrophils # 7.2 Lymphocytes # 1.7 Monocytes # 0.7 Eosinophils # 0.2 Basophils # 0.0 Nucleated Red Blood 0.0 Cells # Sodium Level 138 Potassium Level 4.3 Chloride Level 103 Carbon Dioxide Level 29 Anion Gap 6 Blood Urea Nitrogen 21 H Creatinine 1.78 H Est Glomerular Filtrat Rate mL/min Glucose Level 89 Calcium Level 9.2 Magnesium Level 1.8 Total Bilirubin 0.4 Direct Bilirubin 0.00 Indirect Bilirubin 0.4 Aspartate Amino 17 Transf (AST/SGOT) Alanine 27 Aminotransferase (AL T/SGPT) Alkaline Phosphatase 61 Total Protein 6.3 Albumin 3.1 L Globulin 3.20 Albumin/Globulin 0.96 Ratio Test 10/07/18 07:34 10/07/18 07:47 10/07/18 11:40 Bedside Glucose 93 100 120 Exam/Review of Systems Exam Vitals Vital Signs Date Temp Pulse Resp B/P (MAP) Pulse Ox O2 O2 Flow FiO2 Time Delivery Rate 10/07/18 98.2 62 19 96/54 (68) 96 11:25 10/05/18 Room Air 15:20 Intake and Output 10/06/18 10/06/18 10/07/18 1515:00 23:00 07:00 IntakeIntake Total 440 ml 250 ml OutputOutput Total 200 ml 1200 ml 210 ml BalanceBalance -200 ml -760 ml 40 ml Constitutional: alert, oriented Neck: supple Respiratory: clear to auscultation Cardiovascular: nl pulses, other (PPM) Gastrointestinal: soft, non-tender Musculoskeletal: nl extremities to inspection Extremities: normal pulses Neurological: nl mental status Results Results 24hrs Laboratory Tests Test 10/06/18 16:50 10/06/18 20:14 10/07/18 02:08 10/07/18 05:24 Bedside Glucose 106 128 94 White Blood Count 9.9 # Red Blood Count 3.61 L Hemoglobin 10.5 L Hematocrit 33.1 L Mean Corpuscular 91.7 Volume Mean Corpuscular 29.1 Hemoglobin Mean Corpuscular 31.7 L Hemoglobin Concent Red Cell 14.4 Distribution Width Platelet Count 196 Mean Platelet Volume 10.0 Immature 0.400 Granulocytes % Neutrophils % 72.9 Lymphocytes % 17.5 Monocytes % 7.2 Eosinophils % 1.7 Basophils % 0.3 Nucleated Red Blood 0.0 Cells % Immature 0.040 H Granulocytes # Neutrophils # 7.2 Lymphocytes # 1.7 Monocytes # 0.7 Eosinophils # 0.2 Basophils # 0.0 Nucleated Red Blood 0.0 Cells # Sodium Level 138 Potassium Level 4.3 Chloride Level 103 Carbon Dioxide Level 29 Anion Gap 6 Blood Urea Nitrogen 21 H Creatinine 1.78 H Est Glomerular Filtrat Rate mL/min Glucose Level 89 Calcium Level 9.2 Magnesium Level 1.8 Total Bilirubin 0.4 Direct Bilirubin 0.00 Indirect Bilirubin 0.4 Aspartate Amino 17 Transf (AST/SGOT) Alanine 27 Aminotransferase (AL T/SGPT) Alkaline Phosphatase 61 Total Protein 6.3 Albumin 3.1 L Globulin 3.20 Albumin/Globulin 0.96 Ratio Test 10/07/18 07:34 10/07/18 07:47 10/07/18 11:40 Bedside Glucose 93 100 120 Medications Medication Current Medications IV Flush (NS 3 ml) 3 ml PER PROTOCOL IV ; Start 10/02/18 at 21:30 Ondansetron HCl (Zofran Inj) 4 mg Q6H PRN IV NAUSEA/VOMITING; Start 10/02/18 at 21:30 Acetaminophen (Tylenol Tab) 650 mg Q6H PRN PO .PAIN 1-3 OR TEMP; Start 10/02/18 at 21:30 Morphine Sulfate (morphine) 2 mg Q4H PRN IV .PAIN 7-10; Start 10/02/18 at 21:30 Famotidine (Pepcid) 20 mg DAILY PO Last administered on 10/07/18 09:05; Admin Dose 20 MG; Start 10/03/18 at 09:00 Enoxaparin Sodium (Lovenox) 30 mg DAILY SC Last administered on 10/07/18 09:07; Admin Dose 30 MG; Start 10/03/18 at 09:00 Allopurinol (Zyloprim) 100 mg DAILY PO Last administered on 10/07/18 09:05; Admin Dose 100 MG; Start 10/03/18 at 09:00 Aripiprazole (Abilify) 5 mg DAILY PO Last administered on 10/07/18 09:05; Admin Dose 5 MG; Start 10/03/18 at 09:00 Atorvastatin Calcium (Lipitor) 80 mg QHS PO Last administered on 10/06/18 20:39; Admin Dose 80 MG; Start 10/03/18 at 21:00 Digoxin (Digoxin) 0.125 mg DAILY PO Last administered on 10/05/18 09:49; Admin Dose 0.125 MG; Start 10/03/18 at 09:00 Furosemide (Lasix) 20 mg DAILY PO Last administered on 10/06/18at 08:09; Admin Dose 20 MG; Start 10/03/18 at 09:00 Glimepiride (Amaryl) 2 mg WITH BREAKFAST PO ; Start 10/03/18 at 08:00; Status Hold Lamotrigine (Lamictal) 100 mg BID PO Last administered on 10/07/18at 09:05; Admin Dose 100 MG; Start 10/03/18 at 09:00 Levothyroxine Sodium (Synthroid) 150 mcg BEFORE BREAKFAST PO Last administered on 10/07/18at 06:08; Admin Dose 150 MCG; Start 10/03/18 at 07:00 Lisinopril (Zestril) 2.5 mg DAILY PO Last administered on 10/06/18at 08:09; Admin Dose 2.5 MG; Start 10/03/18 at 09:00 Diagnostic Test (Pha) (Accu-Chek) 1 ea AC MEALS AND BEDTIME XX Last administered on 10/06/18at 20:40; Admin Dose 1 EA; Start 10/03/18 at 07:00 Diagnostic Test (Pha) (Accu-Chek) 1 ea 02 XX Last administered on 10/07/18at 02:21; Admin Dose 1 EA; Start 10/04/18 at 02:00 Insulin Aspart (Novolog Insulin Pen) NOVOLOG *MODERATE* ALGORITHM WITH MEALS BEDTIME SC Last administered on 10/06/18at 11:28; Admin Dose 4 UNIT; Start 10/03/18 at 08:00 Miscellaneous Information 1 ea NOTE XX ; Start 10/03/18 at 02:30 Glucose (Glutose) 15 gm Q15M PRN PO DECREASED GLUCOSE; Start 10/03/18 at 02:30 Glucose (Glutose) 22.5 gm Q15M PRN PO DECREASED GLUCOSE; Start 10/03/18 at 02:30 Dextrose (D50w Syringe) 25 ml Q15M PRN IV DECREASED GLUCOSE; Start 10/03/18 at 02:30 Dextrose (D50w Syringe) 50 ml Q15M PRN IV DECREASED GLUCOSE; Start 10/03/18 at 02:30 Glucagon (Glucagen) 1 mg Q15M PRN IM DECREASED GLUCOSE; Start 10/03/18 at 02:30 Glucose (Glutose) 15 gm Q15M PRN BUCCAL DECREASED GLUCOSE; Start 10/03/18 at 02:30 Cyanocobalamin (Vitamin B12) 1,000 mcg DAILY PO Last administered on 10/07/18 09:06; Admin Dose 1,000 MCG; Start 10/03/18 at 09:00 Docusate Sodium (Colace) 100 mg BID PO Last administered on 10/07/18 09:05; Admin Dose 100 MG; Start 10/06/18 at 21:00 Bisacodyl (Dulcolax) 10 mg DAILY PRN PO CONSTIPATION Last administered on 10/07/18 06:08; Admin Dose 10 MG; Start 10/06/18 at 19:00 Sodium Chloride 1,000 ml @ 50 mls/hr Q20H IV Last administered on 10/06/18 22:42; Admin Dose 50 MLS/HR; Start 10/06/18 at 22:30 Carvedilol (Coreg) 3.125 mg BID GTB Last administered on 10/07/18 10:09; Admin Dose 3.125 MG; Start 10/07/18 at 10:00 Polyethylene Glycol (Miralax) 17 gm DAILY PO Last administered on 10/07/18 13:39; Admin Dose 17 GM; Start 10/07/18 at 13:30 SELMA ELMORE Oct 07, 2018 16:02
[2018-10-07] MEDS: SOD CHLORIDE 0.9% 1,000 ML IV SCH (18:30)
[2018-10-07 20:03] VITALS: BP 94/64; PULSE 54; RESP 18
[2018-10-07] MEDS: ATORVASTATIN 80 MG TAB PO SCH (20:15)
[2018-10-07 23:04] VITALS: BP 103/56; PULSE 57; RESP 18
[2018-10-08] VITALS (8 sets, daily range): BP systolic 80–110; BP diastolic 51–65; PULSE 53–58; RESP 18–20
[2018-10-08] MEDS: ACCU-CHEK XX SCH ×5 (02:00→20:04)
[2018-10-08] MEDS: LEVOTHYROXINE 150 MCG TAB PO SCH (05:58)
[2018-10-08] MEDS: INSULIN ASPART [NOVOLOG] 3 ML PEN SC SCH ×4 (08:00→20:04)
--- NOTE | 2018-10-08 08:56 | CONS ---
Consult Date/Type/Reason Admit Date/Time Oct 02, 2018 at 20:53 Initial Consult Date Requesting Provider: DAMIR LATIF Date/Time of Note DATE: 10/08/18 TIME: 08:54 Subjective No acute events - ICD setting adjusted - no roro for revision now. ROS: No fever, no chills, no nausea, no vomiting, no diarrhea/constipation No recent weight changes No chest pain, no PND, no orthopnea - chronic SOB No dizziness, blurred vision No thirst, no heat or cold intolerance Objective Vitals Vital Signs Date Temp Pulse Resp B/P (MAP) Pulse Ox O2 O2 Flow FiO2 Time Delivery Rate 10/08/18 104/63 08:46 (77) 10/08/18 97.8 58 20 97 07:41 10/05/18 Room Air 15:20 Intake and Output 10/07/18 10/07/18 10/08/18 1515:00 23:00 07:00 IntakeIntake Total 150 ml 520 ml 360 ml OutputOutput Total 600 ml 500 ml BalanceBalance 150 ml -80 ml -140 ml Exam General: WN/WD/NAD, AOx 2-3 Dementia HEENT: Unicetric/atraumatic/EOMI ( follows commands) NECK: JVD elevated, no thyromegaly Lymph: no lymphadenopathy HEART: regular with no S3, II/ systolic murmur at apex, PMI L LUNGS: Coarse sounds ABD: soft, NT, ND, +BS : Intact Neuro: non focal SKIN: chronic changes EXT: trace edema Results/Medications Result Diagram: 10/08/18 0523 10/08/18 0523 Results 24 hrs Laboratory Tests Test 10/07/18 11:40 10/07/18 16:50 10/07/18 20:14 10/08/18 05:23 Bedside Glucose 120 160 141 White Blood Count 10.1 Red Blood Count 3.57 L Hemoglobin 10.3 L Hematocrit 33.0 L Mean Corpuscular 92.4 Volume Mean Corpuscular 28.9 L Hemoglobin Mean Corpuscular 31.2 L Hemoglobin Concent Red Cell 14.4 Distribution Width Platelet Count 200 Mean Platelet Volume 10.2 Immature 0.400 Granulocytes % Neutrophils % 76.5 Lymphocytes % 14.5 L Monocytes % 6.4 Eosinophils % 2.0 Basophils % 0.2 Nucleated Red Blood 0.0 Cells % Immature 0.040 H Granulocytes # Neutrophils # 7.7 H Lymphocytes # 1.5 Monocytes # 0.7 Eosinophils # 0.2 Basophils # 0.0 Nucleated Red Blood 0.0 Cells # Sodium Level 136 Potassium Level 4.2 Chloride Level 102 Carbon Dioxide Level 28 Anion Gap 6 Blood Urea Nitrogen 18 Creatinine 1.63 H Est Glomerular Filtrat Rate mL/min Glucose Level 94 Calcium Level 9.0 Test 10/08/18 08:08 Bedside Glucose 118 Home Meds Reported Medications Furosemide* (Furosemide*) 20 Mg Tablet, 20 MG PO DAILY, #60 TAB 10/02/18 Cyanocobalamin (Vitamin B-12) (Vitamin B-12) 1,000 Mcg Capsule, 1000 MCG PO DAILY, CAP 10/02/18 Aripiprazole* (Abilify*) 5 Mg Tab, 5 MG PO DAILY, #30 TAB 10/02/18 Atorvastatin* (Atorvastatin*) 80 Mg Tablet, 80 MG PO QHS, #30 TAB 10/02/18 Lisinopril* (Lisinopril*) 2.5 Mg Tablet, 2.5 MG PO DAILY, #30 TAB 10/02/18 Levothyroxine Sodium* (Levothyroxine Sodium*) 150 Mcg Tablet, 150 MCG PO BEFORE BREAKFAST, #30 TAB 10/02/18 Allopurinol* (Allopurinol*) 100 Mg Tablet, 100 MG PO DAILY, TAB 10/02/18 Digoxin* (Digitek*) 125 Mcg Tablet, 0.125 MG PO DAILY, TAB 10/02/18 Carvedilol* (Carvedilol*) 3.125 Mg Tablet, 3.125 MG PO BID, #60 TAB 10/02/18 Pantoprazole* (Pantoprazole*) 40 Mg Tablet.dr, 40 MG PO AC BREAKFAST, TAB 10/02/18 Lamotrigine* (Lamotrigine*) 100 Mg Tablet, 100 MG PO BID, TAB 10/02/18 Glimepiride* (Glimepiride*) 2 Mg Tablet, 2 MG PO WITH BREAKFAST, TAB 10/02/18 Discontinued Reported Medications Aripiprazole (Aripiprazole) 5 Mg Tablet, 0.5 TAB ORAL DAILY 09/16/18 Lisinopril* (Lisinopril*) 2.5 Mg Tablet, 1 TAB ORAL DAILY 09/16/18 Acetaminophen* (Acetaminophen*) 500 MG Extra Strength Tablet, 500 MG PO DAILY, TAB 09/16/18 Lamotrigine* (Lamotrigine*) 100 Mg Tablet, 1 TAB ORAL BID 09/16/18 Digoxin* (Lanoxin*) 0.125 Mg Tablet, 0.125 MG PO DAILY, TAB 01/28/18 Glimepiride* (Glimepiride*) 2 Mg Tablet, 2 MG PO WITH BREAKFAST, TAB 01/28/18 Furosemide* (Lasix*) 20 Mg Tablet, 20 MG PO DAILY, TAB 01/28/18 Carvedilol* (Carvedilol*) 3.125 Mg Tablet, 3.125 MG PO BID, #60 TAB 01/28/18 Pantoprazole* (Protonix*) 40 Mg Tablet.dr, 40 MG PO DAILY, TAB 01/28/18 Levothyroxine Sodium* (Levoxyl*) 150 Mcg Tablet, 150 MCG PO BEFORE BREAKFAST, #30 TAB 01/28/18 Atorvastatin* (Atorvastatin*) 80 Mg Tablet, 80 MG PO QHS, #30 TAB 01/28/18 Discontinued Scripts Allopurinol* (Allopurinol*) 100 Mg Tablet, 100 MG PO DAILY for 30 Days, #30 TAB Prov:JOS FOSTER MD 02/13/18 Cyanocobalamin* (Vitamin B12*) 500 Mcg Tab, 1000 MCG PO DAILY for 30 Days, #30 TAB Prov:JOS FOSTER MD 02/13/18 Aspirin Delayed Release (Aspirin Delayed Release) 81 Mg Tablet.dr, 81 MG PO DAILY for 30 Days, #30 Prov:JOS FOSTER MD 02/13/18 Medications Current Medications IV Flush (NS 3 ml) 3 ml PER PROTOCOL IV ; Start 10/02/18 at 21:30 Ondansetron HCl (Zofran Inj) 4 mg Q6H PRN IV NAUSEA/VOMITING; Start 10/02/18 at 21:30 Acetaminophen (Tylenol Tab) 650 mg Q6H PRN PO .PAIN 1-3 OR TEMP; Start 10/02/18 at 21:30 Morphine Sulfate (morphine) 2 mg Q4H PRN IV .PAIN 7-10; Start 10/02/18 at 21:30 Famotidine (Pepcid) 20 mg DAILY PO Last administered on 10/07/18at 09:05; Admin Dose 20 MG; Start 10/03/18 at 09:00 Enoxaparin Sodium (Lovenox) 30 mg DAILY SC Last administered on 10/07/18 09:07; Admin Dose 30 MG; Start 10/03/18 at 09:00 Allopurinol (Zyloprim) 100 mg DAILY PO Last administered on 10/07/18 09:05; Admin Dose 100 MG; Start 10/03/18 at 09:00 Aripiprazole (Abilify) 5 mg DAILY PO Last administered on 10/07/18 09:05; Admin Dose 5 MG; Start 10/03/18 at 09:00 Atorvastatin Calcium (Lipitor) 80 mg QHS PO Last administered on 10/07/18 20:15; Admin Dose 80 MG; Start 10/03/18 at 21:00 Digoxin (Digoxin) 0.125 mg DAILY PO Last administered on 10/05/18 09:49; Admin Dose 0.125 MG; Start 10/03/18 at 09:00 Furosemide (Lasix) 20 mg DAILY PO Last administered on 10/06/18 08:09; Admin Dose 20 MG; Start 10/03/18 at 09:00 Glimepiride (Amaryl) 2 mg WITH BREAKFAST PO ; Start 10/03/18 at 08:00; Status Hold Lamotrigine (Lamictal) 100 mg BID PO Last administered on 10/07/18 20:15; Admin Dose 100 MG; Start 10/03/18 at 09:00 Levothyroxine Sodium (Synthroid) 150 mcg BEFORE BREAKFAST PO Last administered on 10/08/18 05:58; Admin Dose 150 MCG; Start 10/03/18 at 07:00 Lisinopril (Zestril) 2.5 mg DAILY PO Last administered on 10/06/18 08:09; Admin Dose 2.5 MG; Start 10/03/18 at 09:00 Diagnostic Test (Pha) (Accu-Chek) 1 ea AC MEALS AND BEDTIME XX Last administered on 10/08/18 08:00; Admin Dose 1 EA; Start 10/03/18 at 07:00 Diagnostic Test (Pha) (Accu-Chek) 1 ea 02 XX Last administered on 10/07/18 02:21; Admin Dose 1 EA; Start 10/04/18 at 02:00 Insulin Aspart (Novolog Insulin Pen) NOVOLOG *MODERATE* ALGORITHM WITH MEALS BEDTIME SC Last administered on 10/07/18at 17:07; Admin Dose 2 UNIT; Start 10/03/18 at 08:00 Miscellaneous Information 1 ea NOTE XX ; Start 10/03/18 at 02:30 Glucose (Glutose) 15 gm Q15M PRN PO DECREASED GLUCOSE; Start 10/03/18 at 02:30 Glucose (Glutose) 22.5 gm Q15M PRN PO DECREASED GLUCOSE; Start 10/03/18 at 02:30 Dextrose (D50w Syringe) 25 ml Q15M PRN IV DECREASED GLUCOSE; Start 10/03/18 at 02:30 Dextrose (D50w Syringe) 50 ml Q15M PRN IV DECREASED GLUCOSE; Start 10/03/18 at 02:30 Glucagon (Glucagen) 1 mg Q15M PRN IM DECREASED GLUCOSE; Start 10/03/18 at 02:30 Glucose (Glutose) 15 gm Q15M PRN BUCCAL DECREASED GLUCOSE; Start 10/03/18 at 02 :30 Cyanocobalamin (Vitamin B12) 1,000 mcg DAILY PO Last administered on 10/07/18at 09:06; Admin Dose 1,000 MCG; Start 10/03/18 at 09:00 Docusate Sodium (Colace) 100 mg BID PO Last administered on 10/07/18at 20:15; Admin Dose 100 MG; Start 10/06/18 at 21:00 Bisacodyl (Dulcolax) 10 mg DAILY PRN PO CONSTIPATION Last administered on 10/07/18at 06:08; Admin Dose 10 MG; Start 10/06/18 at 19:00 Sodium Chloride 1,000 ml @ 50 mls/hr Q20H IV Last administered on 10/06/18at 22:42; Admin Dose 50 MLS/HR; Start 10/06/18 at 22:30 Carvedilol (Coreg) 3.125 mg BID GTB Last administered on 10/07/18at 10:09; Admin Dose 3.125 MG; Start 10/07/18 at 10:00 Polyethylene Glycol (Miralax) 17 gm DAILY PO Last administered on 10/07/18at 13:39; Admin Dose 17 GM; Start 10/07/18 at 13:30 Assessment/Plan Hospital Course (Demo Recall) 1. Automatic implantable cardioverter defibrillator with possible dysfunction, failure to capture, s/p adjustment of [employer] device settings - increased capture - doing better now. 2. Dizziness. likely d/t pacemaker dysfunction - no new Sx now. 3. Cardiomyopathy with severely depressed left ventricular ejection fraction of approximately 25% with congestive heart failure, systolic, acute on chronic.- neg trop x 3 - ICD in place. 4. Renal failure, acute on chronic- stable urine output - will monitor. 5. Borderline hypotension in the setting of heart dysfunction - improved. 6. Diabetes mellitus- on meds, keep euglycemic. 7. Recurrent falls. 8. Hypothyroidism. VALE TURCIOS MD Oct 08, 2018 08:56
[2018-10-08] MEDS: DOCUSATE SODIUM 100 MG CAP PO SCH ×2 (09:00→20:11)
[2018-10-08] MEDS: POLYETHYLENE GLYCOL 17 GM PACKET PO SCH (09:00)
[2018-10-08] MEDS: ALLOPURINOL 100 MG TAB PO SCH (09:08)
[2018-10-08] MEDS: LISINOPRIL 5 MG TAB PO SCH (09:09)
[2018-10-08] MEDS: LAMOTRIGINE 100 MG TAB PO SCH ×2 (09:09→20:11)
[2018-10-08] MEDS: ARIPIPRAZOLE 5 MG TAB PO SCH (09:09)
[2018-10-08] MEDS: FUROSEMIDE 20 MG TAB PO SCH (09:10)
[2018-10-08] MEDS: FAMOTIDINE 20 MG TAB PO SCH (09:11)
[2018-10-08] MEDS: CYANOCOBALAMIN 500 MCG TAB PO SCH (09:11)
[2018-10-08] MEDS: ENOXAPARIN 30 MG/0.3 ML SYG SC SCH (09:23)
[2018-10-08] MEDS: DIGOXIN 0.125 MG TAB PO SCH (09:26)
--- NOTE | 2018-10-08 15:04 | PN ---
Date/Time of Note Date/Time of Note DATE: 10/08/18 TIME: 15:03 Assessment/Plan VTE Prophylaxis Risk score (from Ns)>0 risk: 4 SCD applied (from Ns): Yes Pharmacological prophylaxis: LMWH Lines/Catheters IV Catheter Type (from [email or web address] Peripheral IV Assessment/Plan Hospital Course Patient continues to have short runs of NSVT, paced rhythm, denies chest pain, continue PT if pt tolerates. Continue telemetry monitoring. Assessment/Plan -Automatic implantable cardioverter defibrillator with possible dysfunction, failure to capture. s/p interrogation and adjustment with resolution of failure to capture. Dr. Choudhury is following in in cardiology consultation. -Dizziness. rule out cardiac arrhythmia, rule out pacemaker dysfunction. -Ischemic cardiomyopathy with ejection fraction of 25%. -Acute kidney injury on chronic kidney disease stage III, continue to monitor BUN and creatinine. Dr. Novak is following in nephrology consultation -Coronary artery disease with history of stent placement. Continue aspirin. -Status post transcatheter aortic valve replacement in 2016. -Chronic obstructive pulmonary disease. -Diabetes mellitus. Continue NovoLog per mild algorithm sliding scale. -Hypothyroidism, continue levothyroxine -Hx of ICD placement for symptomatic bradycardia. 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 Plan of care discussed with Dr. Giron. Result Diagram: 10/08/18 0523 10/08/1823 Results 24hrs Laboratory Tests Test 10/07/18 16:50 10/07/18 20:14 10/08/18 05:23 10/08/18 08:08 Bedside Glucose 160 141 118 White Blood Count 10.1 Red Blood Count 3.57 L Hemoglobin 10.3 L Hematocrit 33.0 L Mean Corpuscular 92.4 Volume Mean Corpuscular 28.9 L Hemoglobin Mean Corpuscular 31.2 L Hemoglobin Concent Red Cell 14.4 Distribution Width Platelet Count 200 Mean Platelet Volume 10.2 Immature 0.400 Granulocytes % Neutrophils % 76.5 Lymphocytes % 14.5 L Monocytes % 6.4 Eosinophils % 2.0 Basophils % 0.2 Nucleated Red Blood 0.0 Cells % Immature 0.040 H Granulocytes # Neutrophils # 7.7 H Lymphocytes # 1.5 Monocytes # 0.7 Eosinophils # 0.2 Basophils # 0.0 Nucleated Red Blood 0.0 Cells # Sodium Level 136 Potassium Level 4.2 Chloride Level 102 Carbon Dioxide Level 28 Anion Gap 6 Blood Urea Nitrogen 18 Creatinine 1.63 H Est Glomerular Filtrat Rate mL/min Glucose Level 94 Calcium Level 9.0 Test 10/08/18 12:01 Bedside Glucose 162 Exam/Review of Systems Exam Vitals Vital Signs Date Temp Pulse Resp B/P (MAP) Pulse Ox O2 O2 Flow FiO2 Time Delivery Rate 10/08/18 55 110/65 14:00 (80) 10/08/18 98.2 18 96 11:39 10/05/18 Room Air 15:20 Intake and Output 10/07/18 10/07/18 10/08/18 1515:00 23:00 07:00 IntakeIntake Total 150 ml 520 ml 360 ml OutputOutput Total 600 ml 500 ml BalanceBalance 150 ml -80 ml -140 ml Exam Constitutional: alert, oriented Neck: supple Respiratory: clear to auscultation Cardiovascular: nl pulses, other (PPM) Gastrointestinal: soft, non-tender Musculoskeletal: nl extremities to inspection Extremities: normal pulses Neurological: nl mental status Results Results 24hrs Laboratory Tests Test 10/07/18 16:50 10/07/18 20:14 10/08/18 05:23 10/08/18 08:08 Bedside Glucose 160 141 118 White Blood Count 10.1 Red Blood Count 3.57 L Hemoglobin 10.3 L Hematocrit 33.0 L Mean Corpuscular 92.4 Volume Mean Corpuscular 28.9 L Hemoglobin Mean Corpuscular 31.2 L Hemoglobin Concent Red Cell 14.4 Distribution Width Platelet Count 200 Mean Platelet Volume 10.2 Immature 0.400 Granulocytes % Neutrophils % 76.5 Lymphocytes % 14.5 L Monocytes % 6.4 Eosinophils % 2.0 Basophils % 0.2 Nucleated Red Blood 0.0 Cells % Immature 0.040 H Granulocytes # Neutrophils # 7.7 H Lymphocytes # 1.5 Monocytes # 0.7 Eosinophils # 0.2 Basophils # 0.0 Nucleated Red Blood 0.0 Cells # Sodium Level 136 Potassium Level 4.2 Chloride Level 102 Carbon Dioxide Level 28 Anion Gap 6 Blood Urea Nitrogen 18 Creatinine 1.63 H Est Glomerular Filtrat Rate mL/min Glucose Level 94 Calcium Level 9.0 Test 10/08/18 12:01 Bedside Glucose 162 Medications Medication Current Medications IV Flush (NS 3 ml) 3 ml PER PROTOCOL IV ; Start 10/02/18 at 21:30 Ondansetron HCl (Zofran Inj) 4 mg Q6H PRN IV NAUSEA/VOMITING; Start 10/02/18 at 21:30 Acetaminophen (Tylenol Tab) 650 mg Q6H PRN PO .PAIN 1-3 OR TEMP; Start 10/02/18 at 21:30 Morphine Sulfate (morphine) 2 mg Q4H PRN IV .PAIN 7-10; Start 10/02/18 at 21:30 Famotidine (Pepcid) 20 mg DAILY PO Last administered on 10/08/18 09:11; Admin Dose 20 MG; Start 10/03/18 at 09:00 Enoxaparin Sodium (Lovenox) 30 mg DAILY SC Last administered on 10/08/18 09:23; Admin Dose 30 MG; Start 10/03/18 at 09:00 Allopurinol (Zyloprim) 100 mg DAILY PO Last administered on 10/08/18 09:08; Admin Dose 100 MG; Start 10/03/18 at 09:00 Aripiprazole (Abilify) 5 mg DAILY PO Last administered on 10/08/18 09:09; Admin Dose 5 MG; Start 10/03/18 at 09:00 Atorvastatin Calcium (Lipitor) 80 mg QHS PO Last administered on 10/07/18 20:15; Admin Dose 80 MG; Start 10/03/18 at 21:00 Digoxin (Digoxin) 0.125 mg DAILY PO Last administered on 10/08/18 09:26; Admin Dose 0.125 MG; Start 10/03/18 at 09:00 Furosemide (Lasix) 20 mg DAILY PO Last administered on 10/08/18 09:10; Admin Dose 20 MG; Start 10/03/18 at 09:00 Glimepiride (Amaryl) 2 mg WITH BREAKFAST PO ; Start 10/03/18 at 08:00; Status Hold Lamotrigine (Lamictal) 100 mg BID PO Last administered on 10/08/18 09:09; Admin Dose 100 MG; Start 10/03/18 at 09:00 Levothyroxine Sodium (Synthroid) 150 mcg BEFORE BREAKFAST PO Last administered on 10/08/18 05:58; Admin Dose 150 MCG; Start 10/03/18 at 07:00 Lisinopril (Zestril) 2.5 mg DAILY PO Last administered on 10/08/18 09:09; Admin Dose 2.5 MG; Start 10/03/18 at 09:00 Diagnostic Test (Pha) (Accu-Chek) 1 ea AC MEALS AND BEDTIME XX Last administered on 10/08/18 12:06; Admin Dose 1 EA; Start 10/03/18 at 07:00 Diagnostic Test (Pha) (Accu-Chek) 1 ea 02 XX Last administered on 10/07/18at 02:21; Admin Dose 1 EA; Start 10/04/18 at 02:00 Insulin Aspart (Novolog Insulin Pen) NOVOLOG *MODERATE* ALGORITHM WITH MEALS BEDTIME SC Last administered on 10/08/18 12:06; Admin Dose 2 UNIT; Start 10/03/18 at 08:00 Miscellaneous Information 1 ea NOTE XX ; Start 10/03/18 at 02:30 Glucose (Glutose) 15 gm Q15M PRN PO DECREASED GLUCOSE; Start 10/03/18 at 02:30 Glucose (Glutose) 22.5 gm Q15M PRN PO DECREASED GLUCOSE; Start 10/03/18 at 02:30 Dextrose (D50w Syringe) 25 ml Q15M PRN IV DECREASED GLUCOSE; Start 10/03/18 at 02:30 Dextrose (D50w Syringe) 50 ml Q15M PRN IV DECREASED GLUCOSE; Start 10/03/18 at 02:30 Glucagon (Glucagen) 1 mg Q15M PRN IM DECREASED GLUCOSE; Start 10/03/18 at 02:30 Glucose (Glutose) 15 gm Q15M PRN BUCCAL DECREASED GLUCOSE; Start 10/03/18 at 02:30 Cyanocobalamin (Vitamin B12) 1,000 mcg DAILY PO Last administered on 10/08/18at 09:11; Admin Dose 1,000 MCG; Start 10/03/18 at 09:00 Docusate Sodium (Colace) 100 mg BID PO Last administered on 10/07/18at 20:15; Admin Dose 100 MG; Start 10/06/18 at 21:00 Bisacodyl (Dulcolax) 10 mg DAILY PRN PO CONSTIPATION Last administered on 10/07/18 06:08; Admin Dose 10 MG; Start 10/06/18 at 19:00 Sodium Chloride 1,000 ml @ 50 mls/hr Q20H IV Last administered on 8/11/19at 22:42; Admin Dose 50 MLS/HR; Start 10/06/18 at 22:30 Carvedilol (Coreg) 3.125 mg BID GTB Last administered on 10/08/18at 09:10; Admin Dose 3.125 MG; Start 10/07/18 at 10:00 Polyethylene Glycol (Miralax) 17 gm DAILY PO Last administered on 10/07/18at 13:39; Admin Dose 17 GM; Start 10/07/18 at 13:30 SELMA ELMORE Oct 08, 2018 15:04
[2018-10-08] MEDS: SOD CHLORIDE 0.9% 1,000 ML IV SCH (15:46)
--- NOTE | 2018-10-08 17:24 | CONS ---
Assessment/Plan Assessment/Plan Assessment/Plan (Daily) 1. acute on chronic renal failure 2/2 Hemodynamics 2. H/o Ischemic cardiomyopathy with last known EF of 25% s/p AICD placement 3. H/o CAD with previous Coronary stent placement 4. H/o COPD 5. H/o DM II 6. H/O depression 7. H/o Arthritis 8. H/o CVA Plan: BUN/Cr improved to 18/1.62, Other electrolytes stable , IVF NS at 50 cc/hr, Lasix 20mg po dialy < Lisinopril 2.5 mg po daily Renal US C/w CKD Cardioloyg following will follow up Consultation Date/Type/Reason Admit Date/Time Oct 02, 2018 at 20:53 Initial Consult Date Requesting Provider: DAMIR LATIF Date/Time of Note DATE: 10/08/18 TIME: 17:24 Exam/Review of Systems Exam Vitals Vital Signs Date Temp Pulse Resp B/P (MAP) Pulse Ox O2 O2 Flow FiO2 Time Delivery Rate 10/08/18 98.4 57 18 102/55 98 15:20 (71) 10/05/18 Room Air 15:20 Intake and Output 10/07/18 10/07/18 10/08/18 1515:00 23:00 07:00 IntakeIntake Total 150 ml 520 ml 360 ml OutputOutput Total 600 ml 500 ml BalanceBalance 150 ml -80 ml -140 ml Exam Constitutional: alert, awake Respiratory: clear to auscultation Cardiovascular: regular rate and rhythm, nl pulses Gastrointestinal: soft, non-tender Musculoskeletal: nl extremities to inspection Extremities: normal pulses Neurological: Non focal Results Result Diagram: 10/08/18 0523 10/08/18 0523 Results 24hrs Laboratory Tests Test 10/07/18 20:14 10/08/18 05:23 10/08/18 08:08 10/08/18 12:01 Bedside Glucose 141 118 162 White Blood Count 10.1 Red Blood Count 3.57 L Hemoglobin 10.3 L Hematocrit 33.0 L Mean Corpuscular 92.4 Volume Mean Corpuscular 28.9 L Hemoglobin Mean Corpuscular 31.2 L Hemoglobin Concent Red Cell 14.4 Distribution Width Platelet Count 200 Mean Platelet Volume 10.2 Immature 0.400 Granulocytes % Neutrophils % 76.5 Lymphocytes % 14.5 L Monocytes % 6.4 Eosinophils % 2.0 Basophils % 0.2 Nucleated Red Blood 0.0 Cells % Immature 0.040 H Granulocytes # Neutrophils # 7.7 H Lymphocytes # 1.5 Monocytes # 0.7 Eosinophils # 0.2 Basophils # 0.0 Nucleated Red Blood 0.0 Cells # Sodium Level 136 Potassium Level 4.2 Chloride Level 102 Carbon Dioxide Level 28 Anion Gap 6 Blood Urea Nitrogen 18 Creatinine 1.63 H Est Glomerular Filtrat Rate mL/min Glucose Level 94 Calcium Level 9.0 Medications Medication Current Medications IV Flush (NS 3 ml) 3 ml PER PROTOCOL IV ; Start 10/02/18 at 21:30 Ondansetron HCl (Zofran Inj) 4 mg Q6H PRN IV NAUSEA/VOMITING; Start 10/02/18 at 21:30 Acetaminophen (Tylenol Tab) 650 mg Q6H PRN PO .PAIN 1-3 OR TEMP; Start 10/02/18 at 21:30 Morphine Sulfate (morphine) 2 mg Q4H PRN IV .PAIN 7-10; Start 10/02/18 at 21:30 Famotidine (Pepcid) 20 mg DAILY PO Last administered on 10/08/18 09:11; Admin Dose 20 MG; Start 10/03/18 at 09:00 Enoxaparin Sodium (Lovenox) 30 mg DAILY SC Last administered on 10/08/18 09:23; Admin Dose 30 MG; Start 10/03/18 at 09:00 Allopurinol (Zyloprim) 100 mg DAILY PO Last administered on 10/08/18 09:08; Admin Dose 100 MG; Start 10/03/18 at 09:00 Aripiprazole (Abilify) 5 mg DAILY PO Last administered on 10/08/18 09:09; Admin Dose 5 MG; Start 10/03/18 at 09:00 Atorvastatin Calcium (Lipitor) 80 mg QHS PO Last administered on 10/07/18 20:15; Admin Dose 80 MG; Start 10/03/18 at 21:00 Digoxin (Digoxin) 0.125 mg DAILY PO Last administered on 10/08/18 09:26; Admin Dose 0.125 MG; Start 10/03/18 at 09:00 Furosemide (Lasix) 20 mg DAILY PO Last administered on 10/08/18 09:10; Admin Dose 20 MG; Start 10/03/18 at 09:00 Glimepiride (Amaryl) 2 mg WITH BREAKFAST PO ; Start 10/03/18 at 08:00; Status Hold Lamotrigine (Lamictal) 100 mg BID PO Last administered on 10/08/18at 09:09; Admin Dose 100 MG; Start 10/03/18 at 09:00 Levothyroxine Sodium (Synthroid) 150 mcg BEFORE BREAKFAST PO Last administered on 10/08/18at 05:58; Admin Dose 150 MCG; Start 10/03/18 at 07:00 Lisinopril (Zestril) 2.5 mg DAILY PO Last administered on 10/08/18at 09:09; Admin Dose 2.5 MG; Start 10/03/18 at 09:00 Diagnostic Test (Pha) (Accu-Chek) 1 ea AC MEALS AND BEDTIME XX Last administered on 10/08/18at 12:06; Admin Dose 1 EA; Start 10/03/18 at 07:00 Diagnostic Test (Pha) (Accu-Chek) 1 ea 02 XX Last administered on 10/07/18at 02:21; Admin Dose 1 EA; Start 10/04/18 at 02:00 Insulin Aspart (Novolog Insulin Pen) NOVOLOG *MODERATE* ALGORITHM WITH MEALS BEDTIME SC Last administered on 10/08/18at 12:06; Admin Dose 2 UNIT; Start 10/03/18 at 08:00 Miscellaneous Information 1 ea NOTE XX ; Start 10/03/18 at 02:30 Glucose (Glutose) 15 gm Q15M PRN PO DECREASED GLUCOSE; Start 10/03/18 at 02:30 Glucose (Glutose) 22.5 gm Q15M PRN PO DECREASED GLUCOSE; Start 10/03/18 at 02:30 Dextrose (D50w Syringe) 25 ml Q15M PRN IV DECREASED GLUCOSE; Start 10/03/18 at 02:30 Dextrose (D50w Syringe) 50 ml Q15M PRN IV DECREASED GLUCOSE; Start 10/03/18 at 0 2:30 Glucagon (Glucagen) 1 mg Q15M PRN IM DECREASED GLUCOSE; Start 10/03/18 at 02:30 Glucose (Glutose) 15 gm Q15M PRN BUCCAL DECREASED GLUCOSE; Start 10/03/18 at 02:30 Cyanocobalamin (Vitamin B12) 1,000 mcg DAILY PO Last administered on 10/08/18 09:11; Admin Dose 1,000 MCG; Start 10/03/18 at 09:00 Docusate Sodium (Colace) 100 mg BID PO Last administered on 10/07/18 20:15; Admin Dose 100 MG; Start 10/06/18 at 21:00 Bisacodyl (Dulcolax) 10 mg DAILY PRN PO CONSTIPATION Last administered on 10/07 06:08; Admin Dose 10 MG; Start 10/06/18 at 19:00 Sodium Chloride 1,000 ml @ 50 mls/hr Q20H IV Last administered on 10/08/18 15:46; Admin Dose 50 MLS/HR; Start 10/06/18 at 22:30 Carvedilol (Coreg) 3.125 mg BID GTB Last administered on 10/08/18 09:10; Admin Dose 3.125 MG; Start 10/07/18 at 10:00 Polyethylene Glycol (Miralax) 17 gm DAILY PO Last administered on 10/07/18 13:39; Admin Dose 17 GM; Start 10/07/18 at 13:30 MIHAI JOSEPH MD Oct 08, 2018 17:24
[2018-10-08] MEDS: ATORVASTATIN 80 MG TAB PO SCH (20:11)
[2018-10-08] MEDS ORDERED: POLYETHYLENE GLYCOL 17 GM PACKET PO PRN (21:00)
[2018-10-09] MEDS: ACCU-CHEK XX SCH ×5 (02:00→20:49)
[2018-10-09 04:03] VITALS: BP 105/50; PULSE 57; RESP 18
[2018-10-09] MEDS: LEVOTHYROXINE 150 MCG TAB PO SCH (06:04)
[2018-10-09 07:43] VITALS: BP 102/55; PULSE 57; RESP 20
[2018-10-09] MEDS: INSULIN ASPART [NOVOLOG] 3 ML PEN SC SCH ×4 (08:00→20:48)
--- NOTE | 2018-10-09 08:26 | CONS ---
Assessment/Plan Assessment/Plan Assessment/Plan (Daily) 1. acute on chronic renal failure 2/2 Hemodynamics 2. H/o Ischemic cardiomyopathy with last known EF of 25% s/p AICD placement 3. H/o CAD with previous Coronary stent placement 4. H/o COPD 5. H/o DM II 6. H/O depression 7. H/o Arthritis 8. H/o CVA Plan: BUN/Cr improved to 19/1.61, Other electrolytes stable ,d/c IVF now, continue Lasix 20mg po dialy < Lisinopril 2.5 mg po daily Renal US C/w CKD Cardioloyg following will follow up Consultation Date/Type/Reason Admit Date/Time Oct 02, 2018 at 20:53 Initial Consult Date Requesting Provider: DAMIR LATIF Date/Time of Note DATE: 10/09/18 TIME: 08:25 Exam/Review of Systems Exam Vitals Vital Signs Date Temp Pulse Resp B/P (MAP) Pulse Ox O2 O2 Flow FiO2 Time Delivery Rate 10/09/18 98.2 57 20 102/55 98 07:43 (71) 10/05/18 Room Air 15:20 Intake and Output 10/08/18 10/08/18 10/09/18 1515:00 23:00 07:00 IntakeIntake Total 440 ml 120 ml OutputOutput Total 300 ml 600 ml 700 ml BalanceBalance 140 ml -480 ml -700 ml Exam Constitutional: alert, awake Respiratory: clear to auscultation Cardiovascular: regular rate and rhythm, nl pulses Gastrointestinal: soft, non-tender Musculoskeletal: nl extremities to inspection Extremities: normal pulses Neurological: Non focal Results Result Diagram: 10/08/18 0523 10/09/18 0538 Results 24hrs Laboratory Tests Test 10/08/18 12:01 10/08/18 17:28 10/08/18 20:03 10/09/18 05:38 Bedside Glucose 162 181 148 Sodium Level 138 Potassium Level 4.5 Chloride Level 104 Carbon Dioxide Level 28 Anion Gap 6 Blood Urea Nitrogen 19 Creatinine 1.61 H Est Glomerular Filtrat Rate mL/min Glucose Level 96 Calcium Level 9.2 Magnesium Level 2.2 Test 10/09/18 07:59 Bedside Glucose 122 Medications Medication Current Medications IV Flush (NS 3 ml) 3 ml PER PROTOCOL IV ; Start 10/02/18 at 21:30 Ondansetron HCl (Zofran Inj) 4 mg Q6H PRN IV NAUSEA/VOMITING; Start 10/02/18 at 21:30 Acetaminophen (Tylenol Tab) 650 mg Q6H PRN PO .PAIN 1-3 OR TEMP; Start 10/02/18 at 21:30 Morphine Sulfate (morphine) 2 mg Q4H PRN IV .PAIN 7-10; Start 10/02/18 at 21:30 Famotidine (Pepcid) 20 mg DAILY PO Last administered on 10/08/18 09:11; Admin Dose 20 MG; Start 10/03/18 at 09:00 Enoxaparin Sodium (Lovenox) 30 mg DAILY SC Last administered on 10/08/18 09:23; Admin Dose 30 MG; Start 10/03/18 at 09:00 Allopurinol (Zyloprim) 100 mg DAILY PO Last administered on 10/08/18 09:08; Admin Dose 100 MG; Start 10/03/18 at 09:00 Aripiprazole (Abilify) 5 mg DAILY PO Last administered on 10/08/18 09:09; Admin Dose 5 MG; Start 10/03/18 at 09:00 Atorvastatin Calcium (Lipitor) 80 mg QHS PO Last administered on 10/08/18 20:11; Admin Dose 80 MG; Start 10/03/18 at 21:00 Digoxin (Digoxin) 0.125 mg DAILY PO Last administered on 10/08/18 09:26; Admin Dose 0.125 MG; Start 10/03/18 at 09:00 Furosemide (Lasix) 20 mg DAILY PO Last administered on 10/08/18 09:10; Admin Dose 20 MG; Start 10/03/18 at 09:00 Glimepiride (Amaryl) 2 mg WITH BREAKFAST PO ; Start 10/03/18 at 08:00; Status Hold Lamotrigine (Lamictal) 100 mg BID PO Last administered on 10/08/18 20:11; Admin Dose 100 MG; Start 10/03/18 at 09:00 Levothyroxine Sodium (Synthroid) 150 mcg BEFORE BREAKFAST PO Last administered on 10/09/18 06:04; Admin Dose 150 MCG; Start 10/03/18 at 07:00 Lisinopril (Zestril) 2.5 mg DAILY PO Last administered on 10/08/18 09:09; Admin Dose 2.5 MG; Start 10/03/18 at 09:00 Diagnostic Test (Pha) (Accu-Chek) 1 ea AC MEALS AND BEDTIME XX Last adminis tered on 10/08/18at 20:04; Admin Dose 1 EA; Start 10/03/18 at 07:00 Diagnostic Test (Pha) (Accu-Chek) 1 ea 02 XX Last administered on 10/07/18 02:21; Admin Dose 1 EA; Start 10/04/18 at 02:00 Insulin Aspart (Novolog Insulin Pen) NOVOLOG *MODERATE* ALGORITHM WITH MEALS BEDTIME SC Last administered on 10/08/18 17:45; Admin Dose 4 UNIT; Start 10/03/18 at 08:00 Miscellaneous Information 1 ea NOTE XX ; Start 10/03/18 at 02:30 Glucose (Glutose) 15 gm Q15M PRN PO DECREASED GLUCOSE; Start 10/03/18 at 02:30 Glucose (Glutose) 22.5 gm Q15M PRN PO DECREASED GLUCOSE; Start 10/03/18 at 02:30 Dextrose (D50w Syringe) 25 ml Q15M PRN IV DECREASED GLUCOSE; Start 10/03/18 at 02:30 Dextrose (D50w Syringe) 50 ml Q15M PRN IV DECREASED GLUCOSE; Start 10/03/18 at 02:30 Glucagon (Glucagen) 1 mg Q15M PRN IM DECREASED GLUCOSE; Start 10/03/18 at 02:30 Glucose (Glutose) 15 gm Q15M PRN BUCCAL DECREASED GLUCOSE; Start 10/03/18 at 02:30 Cyanocobalamin (Vitamin B12) 1,000 mcg DAILY PO Last administered on 10/08/18 09:11; Admin Dose 1,000 MCG; Start 10/03/18 at 09:00 Docusate Sodium (Colace) 100 mg BID PO Last administered on 10/08/18 20:11; Admin Dose 100 MG; Start 10/06/18 at 21:00 Bisacodyl (Dulcolax) 10 mg DAILY PRN PO CONSTIPATION Last administered on 10/07/18 06:08; Admin Dose 10 MG; Start 10/06/18 at 19:00 Sodium Chloride 1,000 ml @ 50 mls/hr Q20H IV Last administered on 8/13/19at 15:46; Admin Dose 50 MLS/HR; Start 10/06/18 at 22:30 Carvedilol (Coreg) 3.125 mg BID GTB Last administered on 10/08/18at 09:10; Admin Dose 3.125 MG; Start 10/07/18 at 10:00 Polyethylene Glycol (Miralax) 17 gm DAILY PRN PO CONSTIPATION; Start 10/08/18 at 21:00 MIHAI JOSEPH MD Oct 09, 2018 08:25
[2018-10-09] MEDS: LAMOTRIGINE 100 MG TAB PO SCH ×2 (08:39→20:49)
[2018-10-09] MEDS: DOCUSATE SODIUM 100 MG CAP PO SCH ×2 (08:41→20:48)
[2018-10-09] MEDS: ALLOPURINOL 100 MG TAB PO SCH (08:41)
[2018-10-09] MEDS: ARIPIPRAZOLE 5 MG TAB PO SCH (08:41)
[2018-10-09] MEDS: FUROSEMIDE 20 MG TAB PO SCH (08:41)
[2018-10-09] MEDS: LISINOPRIL 5 MG TAB PO SCH (08:42)
[2018-10-09] MEDS: DIGOXIN 0.125 MG TAB PO SCH (08:42)
[2018-10-09] MEDS: CYANOCOBALAMIN 500 MCG TAB PO SCH (08:42)
[2018-10-09] MEDS: FAMOTIDINE 20 MG TAB PO SCH (08:42)
[2018-10-09] MEDS: ENOXAPARIN 30 MG/0.3 ML SYG SC SCH (08:51)
[2018-10-09 11:18] VITALS: BP 97/51; PULSE 57; RESP 20
[2018-10-09] MEDS: SOD CHLORIDE 0.9% 1,000 ML IV SCH (11:54)
--- NOTE | 2018-10-09 14:11 | CONS ---
Assessment/Plan Assessment/Plan Hospital Course (Demo Recall) IMPRESSION: 1. Automatic implantable cardioverter defibrillator with possible dysfunction, failure to capture. s/p interrogation and adjustment with resolution of failure to capture 2. Dizziness. Rule cardiology, rule out cardiac arrhythmia, rule out pacemaker dysfunction. 3. Cardiomyopathy with severely depressed left ventricular ejection fraction of approximately 25% with congestive heart failure, systolic, acute on chronic.- neg trop x 3 4. Renal failure, acute on chronic. 5. Borderline hypotension in the setting of heart dysfunction. 6. Diabetes mellitus. 7. Recurrent falls. 8. Hypothyroidism. 9. NSVT-recurrent short runs by tele still REcc: -Tele -s/p interrogation and adjustment to ICD/PPM this am -Continue zestril as tolerated only -Continue coreg bin slight increase given short runs of NSVT -Continue lasix diuresis and follow volume status and renal function -continue statin -keep Mg>2 and K>4 Consultation Date/Type/Reason Admit Date/Time Oct 02, 2018 at 20:53 Initial Consult Date 10/04/18 Type of Consult Cardiology Reason for Consultation Cardiomyopathy/ICD Requesting Provider: DAMIR LATIF Date/Time of Note DATE: 10/09/18 TIME: 14:07 Exam/Review of Systems Vital Signs Vitals Vital Signs Date Temp Pulse Resp B/P (MAP) Pulse Ox O2 O2 Flow FiO2 Time Delivery Rate 10/09/18 98.0 57 20 97/51 (66) 99 11:18 10/05/18 Room Air 15:20 Intake and Output 10/08/18 10/08/18 10/09/18 1515:00 23:00 07:00 IntakeIntake Total 440 ml 120 ml OutputOutput Total 300 ml 600 ml 700 ml BalanceBalance 140 ml -480 ml -700 ml Exam Exam Review of Systems: CONSTITUTIONAL: No fevers, chills. PULMONARY: No sob CARDIOVASCULAR: No chest pain/palpitations GASTROINTESTINAL: No nausea/vomiting. GENITOURINARY: No hematuria/dysuria. MUSCULOSKELETAL: No myagias/arthalgias. PSYCHIATRIC: The patient denies depression. NEUROLOGIC: No weakness Constitutional: alert Psych: no complaints Head: normocephalic ENMT: mucosa pink and moist Neck: supple, jvd (9 cm water) Respiratory: diminished breath sounds Cardiovascular: regular rate and rhythm Gastrointestinal: soft, non-tender Musculoskeletal: muscle weakness (mild generalized) Extremities: edema (none) Neurological: other (No focal deficits) Labs Result Diagram: 10/08/18 0523 10/09/18 0538 Results 24hrs Laboratory Tests Test 10/08/18 17:28 10/08/18 20:03 10/09/18 05:38 10/09/18 07:59 Bedside Glucose 181 148 122 Sodium Level 138 Potassium Level 4.5 Chloride Level 104 Carbon Dioxide Level 28 Anion Gap 6 Blood Urea Nitrogen 19 Creatinine 1.61 H Est Glomerular Filtrat Rate mL/min Glucose Level 96 Calcium Level 9.2 Magnesium Level 2.2 Test 10/09/18 11:52 Bedside Glucose 106 Medications Medications Current Medications IV Flush (NS 3 ml) 3 ml PER PROTOCOL IV ; Start 10/02/18 at 21:30 Ondansetron HCl (Zofran Inj) 4 mg Q6H PRN IV NAUSEA/VOMITING; Start 10/02/18 at 21:30 Acetaminophen (Tylenol Tab) 650 mg Q6H PRN PO .PAIN 1-3 OR TEMP; Start 10/02/18 at 21:30 Morphine Sulfate (morphine) 2 mg Q4H PRN IV .PAIN 7-10; Start 10/02/18 at 21:30 Famotidine (Pepcid) 20 mg DAILY PO Last administered on 10/09/18 08:42; Admin Dose 20 MG; Start 10/03/18 at 09:00 Enoxaparin Sodium (Lovenox) 30 mg DAILY SC Last administered on 10/09/18 08:51; Admin Dose 30 MG; Start 10/03/18 at 09:00 Allopurinol (Zyloprim) 100 mg DAILY PO Last administered on 10/09/18 08:41; Admin Dose 100 MG; Start 10/03/18 at 09:00 Aripiprazole (Abilify) 5 mg DAILY PO Last administered on 10/09/18 08:41; Admin Dose 5 MG; Start 10/03/18 at 09:00 Atorvastatin Calcium (Lipitor) 80 mg QHS PO Last administered on 10/08/18 20:11; Admin Dose 80 MG; Start 10/03/18 at 21:00 Digoxin (Digoxin) 0.125 mg DAILY PO Last administered on 10/09/18 08:42; Admin Dose 0.125 MG; Start 10/03/18 at 09:00 Furosemide (Lasix) 20 mg DAILY PO Last administered on 10/09/18at 08:41; Admin Dose 20 MG; Start 10/03/18 at 09:00 Glimepiride (Amaryl) 2 mg WITH BREAKFAST PO ; Start 10/03/18 at 08:00; Status Hold Lamotrigine (Lamictal) 100 mg BID PO Last administered on 10/09/18at 08:39; Admin Dose 100 MG; Start 10/03/18 at 09:00 Levothyroxine Sodium (Synthroid) 150 mcg BEFORE BREAKFAST PO Last administered on 10/09/18at 06:04; Admin Dose 150 MCG; Start 10/03/18 at 07:00 Lisinopril (Zestril) 2.5 mg DAILY PO Last administered on 10/09/18at 08:42; Admin Dose 2.5 MG; Start 10/03/18 at 09:00 Diagnostic Test (Pha) (Accu-Chek) 1 ea AC MEALS AND BEDTIME XX Last administered on 10/09/18at 11:54; Admin Dose 1 EA; Start 10/03/18 at 07:00 Diagnostic Test (Pha) (Accu-Chek) 1 ea 02 XX Last administered on 10/07/18at 02:21; Admin Dose 1 EA; Start 10/04/18 at 02:00 Insulin Aspart (Novolog Insulin Pen) NOVOLOG *MODERATE* ALGORITHM WITH MEALS BEDTIME SC Last administered on 10/08/18at 17:45; Admin Dose 4 UNIT; Start 10/03/18 at 08:00 Miscellaneous Information 1 ea NOTE XX ; Start 10/03/18 at 02:30 Glucose (Glutose) 15 gm Q15M PRN PO DECREASED GLUCOSE; Start 10/03/18 at 02:30 Glucose (Glutose) 22.5 gm Q15M PRN PO DECREASED GLUCOSE; Start 10/03/18 at 02:30 Dextrose (D50w Syringe) 25 ml Q15M PRN IV DECREASED GLUCOSE; Start 10/03/18 at 02:30 Dextrose (D50w Syringe) 50 ml Q15M PRN IV DECREASED GLUCOSE; Start 10/03/18 at 02:30 Glucagon (Glucagen) 1 mg Q15M PRN IM DECREASED GLUCOSE; Start 10/03/18 at 02:30 Glucose (Glutose) 15 gm Q15M PRN BUCCAL DECREASED GLUCOSE; Start 10/03/18 at 02:30 Cyanocobalamin (Vitamin B12) 1,000 mcg DAILY PO Last administered on 10/09/18 08:42; Admin Dose 1,000 MCG; Start 10/03/18 at 09:00 Docusate Sodium (Colace) 100 mg BID PO Last administered on 10/09/18 08:41; Admin Dose 100 MG; Start 10/06/18 at 21:00 Bisacodyl (Dulcolax) 10 mg DAILY PRN PO CONSTIPATION Last administered on 10/07/18 06:08; Admin Dose 10 MG; Start 10/06/18 at 19:00 Sodium Chloride 1,000 ml @ 50 mls/hr Q20H IV Last administered on 10/09/18 11:54; Admin Dose 50 MLS/HR; Start 10/06/18 at 22:30 Carvedilol (Coreg) 3.125 mg BID GTB Last administered on 10/09/18 08:41; Admin Dose 3.125 MG; Start 10/07/18 at 10:00 Polyethylene Glycol (Miralax) 17 gm DAILY PRN PO CONSTIPATION; Start 10/08/18 at 21:00 JACLYN RODRIGUEZ Oct 09, 2018 14:11
[2018-10-09 15:39] VITALS: BP 107/53; PULSE 53; RESP 20
--- NOTE | 2018-10-09 16:40 | PN ---
Date/Time of Note Date/Time of Note DATE: 10/09/18 TIME: 16:35 Assessment/Plan VTE Prophylaxis Risk score (from Ns)>0 risk: 7 SCD applied (from Ns): Yes Pharmacological prophylaxis: LMWH Lines/Catheters IV C[facility]ter Type (from [facility]): Peripheral IV Assessment/Plan Hospital Course Patient continues to have short runs of NSVT, complains of generalized weakness, pleasantly confused. Given have patient has a history of falls, continue close monitoring. Coreg dose increased, discussed with , continue telemetry monitoring. Assessment/Plan -Automatic implantable cardioverter defibrillator with possible dysfunction, failure to capture. s/p interrogation and adjustment with resolution of failure to capture. Dr. Choudhury is following in in cardiology consultation. -Dizziness. rule out cardiac arrhythmia, rule out pacemaker dysfunction. -Ischemic cardiomyopathy with ejection fraction of 25%. -Acute kidney injury on chronic kidney disease stage III, continue to monitor B UN and creatinine. Dr. Novak is following in nephrology consultation -Coronary artery disease with history of stent placement. Continue aspirin. -Status post transcatheter aortic valve replacement in 2016. -Chronic obstructive pulmonary disease. -Diabetes mellitus. Continue NovoLog per mild algorithm sliding scale. -Hypothyroidism, continue levothyroxine -Hx of ICD placement for symptomatic bradycardia. 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 Plan of care discussed with Dr. Giron. Result Diagram: 10/08/18 0523 10/09/18 0538 Results 24hrs Laboratory Tests Test 10/08/18 17:28 10/08/18 20:03 10/09/18 05:38 10/09/18 07:59 Bedside Glucose 181 148 122 Sodium Level 138 Potassium Level 4.5 Chloride Level 104 Carbon Dioxide Level 28 Anion Gap 6 Blood Urea Nitrogen 19 Creatinine 1.61 H Est Glomerular Filtrat Rate mL/min Glucose Level 96 Calcium Level 9.2 Magnesium Level 2.2 Test 10/09/18 11:52 Bedside Glucose 106 Exam/Review of Systems Exam Vitals Vital Signs Date Temp Pulse Resp B/P (MAP) Pulse Ox O2 O2 Flow FiO2 Time Delivery Rate 10/09/18 98.0 53 20 107/53 97 15:39 (71) 10/05/18 Room Air 15:20 Intake and Output 10/08/18 10/08/18 10/09/18 1515:00 23:00 07:00 IntakeIntake Total 440 ml 120 ml OutputOutput Total 300 ml 600 ml 700 ml BalanceBalance 140 ml -480 ml -700 ml Exam Constitutional: alert, oriented Neck: supple Respiratory: clear to auscultation Cardiovascular: nl pulses, other (PPM) Gastrointestinal: soft, non-tender Musculoskeletal: nl extremities to inspection Extremities: normal pulses Neurological: nl mental status Results Results 24hrs Laboratory Tests Test 10/08/18 17:28 10/08/18 20:03 10/09/18 05:38 10/09/18 07:59 Bedside Glucose 181 148 122 Sodium Level 138 Potassium Level 4.5 Chloride Level 104 Carbon Dioxide Level 28 Anion Gap 6 Blood Urea Nitrogen 19 Creatinine 1.61 H Est Glomerular Filtrat Rate mL/min Glucose Level 96 Calcium Level 9.2 Magnesium Level 2.2 Test 10/09/18 11:52 Bedside Glucose 106 Medications Medication Current Medications IV Flush (NS 3 ml) 3 ml PER PROTOCOL IV ; Start 10/02/18 at 21:30 Ondansetron HCl (Zofran Inj) 4 mg Q6H PRN IV NAUSEA/VOMITING; Start 10/02/18 at 21:30 Acetaminophen (Tylenol Tab) 650 mg Q6H PRN PO .PAIN 1-3 OR TEMP; Start 10/02/18 at 21:30 Morphine Sulfate (morphine) 2 mg Q4H PRN IV .PAIN 7-10; Start 10/02/18 at 21:30 Famotidine (Pepcid) 20 mg DAILY PO Last administered on 10/09/18at 08:42; Admin Dose 20 MG; Start 10/03/18 at 09:00 Enoxaparin Sodium (Lovenox) 30 mg DAILY SC Last administered on 10/09/18at 08:51; Admin Dose 30 MG; Start 10/03/18 at 09:00 Allopurinol (Zyloprim) 100 mg DAILY PO Last administered on 10/09/18at 08:41; A dmin Dose 100 MG; Start 10/03/18 at 09:00 Aripiprazole (Abilify) 5 mg DAILY PO Last administered on 10/09/18at 08:41; Admin Dose 5 MG; Start 10/03/18 at 09:00 Atorvastatin Calcium (Lipitor) 80 mg QHS PO Last administered on 10/08/18 20:11; Admin Dose 80 MG; Start 10/03/18 at 21:00 Digoxin (Digoxin) 0.125 mg DAILY PO Last administered on 10/09/18 08:42; Admin Dose 0.125 MG; Start 10/03/18 at 09:00 Furosemide (Lasix) 20 mg DAILY PO Last administered on 10/09/18 08:41; Admin Dose 20 MG; Start 10/03/18 at 09:00 Glimepiride (Amaryl) 2 mg WITH BREAKFAST PO ; Start 10/03/18 at 08:00; Status Hold Lamotrigine (Lamictal) 100 mg BID PO Last administered on 10/09/18 08:39; Admin Dose 100 MG; Start 10/03/18 at 09:00 Levothyroxine Sodium (Synthroid) 150 mcg BEFORE BREAKFAST PO Last administered on 10/09/18 06:04; Admin Dose 150 MCG; Start 10/03/18 at 07:00 Lisinopril (Zestril) 2.5 mg DAILY PO Last administered on 10/09/18 08:42; Admin Dose 2.5 MG; Start 10/03/18 at 09:00 Diagnostic Test (Pha) (Accu-Chek) 1 ea AC MEALS AND BEDTIME XX Last administered on 10/09/18 11:54; Admin Dose 1 EA; Start 10/03/18 at 07:00 Diagnostic Test (Pha) (Accu-Chek) 1 ea 02 XX Last administered on 10/07/18 02 :21; Admin Dose 1 EA; Start 10/04/18 at 02:00 Insulin Aspart (Novolog Insulin Pen) NOVOLOG *MODERATE* ALGORITHM WITH MEALS BEDTIME SC Last administered on 10/08/18 17:45; Admin Dose 4 UNIT; Start at 08:00 Miscellaneous Information 1 ea NOTE XX ; Start 10/03/18 at 02:30 Glucose (Glutose) 15 gm Q15M PRN PO DECREASED GLUCOSE; Start 10/03/18 at 02:30 Glucose (Glutose) 22.5 gm Q15M PRN PO DECREASED GLUCOSE; Start 10/03/18 at 02:30 Dextrose (D50w Syringe) 25 ml Q15M PRN IV DECREASED GLUCOSE; Start 10/03/18 at 02:30 Dextrose (D50w Syringe) 50 ml Q15M PRN IV DECREASED GLUCOSE; Start 10/03/18 at 02:30 Glucagon (Glucagen) 1 mg Q15M PRN IM DECREASED GLUCOSE; Start 10/03/18 at 02:30 Glucose (Glutose) 15 gm Q15M PRN BUCCAL DECREASED GLUCOSE; Start 10/03/18 at 02:30 Cyanocobalamin (Vitamin B12) 1,000 mcg DAILY PO Last administered on 10/09/18at 08:42; Admin Dose 1,000 MCG; Start 10/03/18 at 09:00 Docusate Sodium (Colace) 100 mg BID PO Last administered on 10/09/18at 08:41; Admin Dose 100 MG; Start 10/06/18 at 21:00 Bisacodyl (Dulcolax) 10 mg DAILY PRN PO CONSTIPATION Last administered on 10/07/18at 06:08; Admin Dose 10 MG; Start 10/06/18 at 19:00 Sodium Chloride 1,000 ml @ 50 mls/hr Q20H IV Last administered on 10/09/18at 11:54; Admin Dose 50 MLS/HR; Start 10/06/18 at 22:30 Polyethylene Glycol (Miralax) 17 gm DAILY PRN PO CONSTIPATION; Start 10/08/18 at 21:00 Carvedilol (Coreg) 6.25 mg BID GTB ; Start 10/09/18 at 21:00 SELMA ELMORE Oct 09, 2018 16:40
[2018-10-09 20:00] VITALS: BP 92/44; PULSE 55; RESP 20
[2018-10-09] MEDS: ATORVASTATIN 80 MG TAB PO SCH (20:49)
[2018-10-10] VITALS: BP 96/56; PULSE 57; RESP 20
[2018-10-10] MEDS: ACCU-CHEK XX SCH ×5 (02:00→21:00)
[2018-10-10 04:07] VITALS: BP 91/53; PULSE 58; RESP 18
[2018-10-10 07:25] VITALS: BP 117/53; PULSE 59; RESP 20
[2018-10-10] MEDS: LEVOTHYROXINE 150 MCG TAB PO SCH (07:40)
[2018-10-10] MEDS: INSULIN ASPART [NOVOLOG] 3 ML PEN SC SCH ×4 (07:41→21:00)
[2018-10-10] MEDS: CYANOCOBALAMIN 500 MCG TAB PO SCH (08:55)
[2018-10-10] MEDS: ALLOPURINOL 100 MG TAB PO SCH (08:55)
[2018-10-10] MEDS: FAMOTIDINE 20 MG TAB PO SCH (08:55)
[2018-10-10] MEDS: LAMOTRIGINE 100 MG TAB PO SCH ×2 (08:55→21:15)
[2018-10-10] MEDS: DOCUSATE SODIUM 100 MG CAP PO SCH ×2 (08:55→21:15)
[2018-10-10] MEDS: ARIPIPRAZOLE 5 MG TAB PO SCH (08:55)
[2018-10-10] MEDS: DIGOXIN 0.125 MG TAB PO SCH (08:57)
[2018-10-10] MEDS: LISINOPRIL 5 MG TAB PO SCH (08:57)
[2018-10-10] MEDS: FUROSEMIDE 20 MG TAB PO SCH (09:04)
[2018-10-10] MEDS: ENOXAPARIN 30 MG/0.3 ML SYG SC SCH (09:11)
[2018-10-10 11:05] VITALS: BP 102/55; PULSE 57; RESP 20
--- NOTE | 2018-10-10 14:03 | PN ---
Date/Time of Note Date/Time of Note DATE: 10/10/18 TIME: 14:01 Assessment/Plan VTE Prophylaxis Risk score (from Ns)>0 risk: 6 SCD applied (from Ns): Yes Pharmacological prophylaxis: LMWH Lines/Catheters IV [facility] (from [facility]): Peripheral IV Assessment/Plan Hospital Course Patient continues to have multiple episodes of frequent run of nonsustained V. tach overnight and in the morning, currently in sinus rhythm. Patient is complains of generalized weakness, continue physical therapy, cardiology r ecommendations, telemetry monitoring. Assessment/Plan -Automatic implantable cardioverter defibrillator with possible dysfunction, failure to capture. s/p interrogation and adjustment with resolution of failure to capture. Dr. Choudhury is following in in cardiology consultation. -Dizziness. rule out cardiac arrhythmia, rule out pacemaker dysfunction. -Ischemic cardiomyopathy with ejection fraction of 25%. -Acute kidney injury on chronic kidney disease stage III, continue to monitor BUN and creatinine. Dr. Novak is following in nephrology consultation -Coronary artery disease with history of stent placement. Continue aspirin. -Status post transcatheter aortic valve replacement in 2016. -Chronic obstructive pulmonary disease. -Diabetes mellitus. Continue NovoLog per mild algorithm sliding scale. -Hypothyroidism, continue levothyroxine -Hx of ICD placement for symptomatic bradycardia. 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 Plan of care discussed with Dr. Giron. Result Diagram: 10/08/18 0523 10/10/18 0540 Results 24hrs Laboratory Tests Test 10/09/18 17:23 10/09/18 20:46 10/10/18 05:40 10/10/18 07:41 Bedside Glucose 124 165 97 Sodium Level 137 Potassium Level 4.2 Chloride Level 102 Carbon Dioxide Level 27 Anion Gap 8 Blood Urea Nitrogen 19 Creatinine 1.67 H Est Glomerular Filtrat Rate mL/min Glucose Level 97 Calcium Level 9.5 Magnesium Level 2.0 Test 10/10/18 12:29 Bedside Glucose 251 H Exam/Review of Systems Exam Vitals Vital Signs Date Temp Pulse Resp B/P (MAP) Pulse Ox O2 O2 Flow FiO2 Time Delivery Rate 10/10/18 98.1 57 20 102/55 98 Room Air 11:05 (71) Intake and Output 10/09/18 10/09/18 10/10/18 1515:00 23:00 07:00 IntakeIntake Total 800 ml OutputOutput Total 150 ml 1050 ml 200 ml BalanceBalance -150 ml -250 ml -200 ml Exam Constitutional: alert, oriented Respiratory: clear to auscultation Cardiovascular: nl pulses, other (PPM) Gastrointestinal: soft, non-tender Musculoskeletal: nl extremities to inspection Extremities: normal pulses Neurological: nl mental status Results Results 24hrs Laboratory Tests Test 10/09/18 17:23 10/09/18 20:46 10/10/18 05:40 10/10/18 07:41 Bedside Glucose 124 165 97 Sodium Level 137 Potassium Level 4.2 Chloride Level 102 Carbon Dioxide Level 27 Anion Gap 8 Blood Urea Nitrogen 19 Creatinine 1.67 H Est Glomerular Filtrat Rate mL/min Glucose Level 97 Calcium Level 9.5 Magnesium Level 2.0 Test 10/10/18 12:29 Bedside Glucose 251 H Medications Medication Current Medications IV Flush (NS 3 ml) 3 ml PER PROTOCOL IV ; Start 10/02/18 at 21:30 Ondansetron HCl (Zofran Inj) 4 mg Q6H PRN IV NAUSEA/VOMITING; Start 10/02/18 at 21:30 Acetaminophen (Tylenol Tab) 650 mg Q6H PRN PO .PAIN 1-3 OR TEMP; Start 10/02/18 at 21:30 Morphine Sulfate (morphine) 2 mg Q4H PRN IV .PAIN 7-10; Start 10/02/18 at 21:30 Famotidine (Pepcid) 20 mg DAILY PO Last administered on 10/10/18at 08:55; Admin Dose 20 MG; Start 10/03/18 at 09:00 Enoxaparin Sodium (Lovenox) 30 mg DAILY SC Last administered on 10/10/18at 09:11; Admin Dose 30 MG; Start 10/03/18 at 09:00 Allopurinol (Zyloprim) 100 mg DAILY PO Last administered on 10/10/18 08:55; Admin Dose 100 MG; Start 10/03/18 at 09:00 Aripiprazole (Abilify) 5 mg DAILY PO Last administered on 10/10/18 08:55; Admin Dose 5 MG; Start 10/03/18 at 09:00 Atorvastatin Calcium (Lipitor) 80 mg QHS PO Last administered on 10/09/18at 20:49; Admin Dose 80 MG; Start 10/03/18 at 21:00 Digoxin (Digoxin) 0.125 mg DAILY PO Last administered on 10/10/18 08:57; Admin Dose 0.125 MG; Start 10/03/18 at 09:00 Furosemide (Lasix) 20 mg DAILY PO Last administered on 10/10/18at 09:04; Admin Dose 20 MG; Start 10/03/18 at 09:00 Glimepiride (Amaryl) 2 mg WITH BREAKFAST PO ; Start 10/03/18 at 08:00; Status Hold Lamotrigine (Lamictal) 100 mg BID PO Last administered on 10/10/18 08:55; Admin Dose 100 MG; Start 10/03/18 at 09:00 Levothyroxine Sodium (Synthroid) 150 mcg BEFORE BREAKFAST PO Last administered on 10/10/18 07:40; Admin Dose 150 MCG; Start 10/03/18 at 07:00 Lisinopril (Zestril) 2.5 mg DAILY PO Last administered on 10/10/18 08:57; Admin Dose 2.5 MG; Start 10/03/18 at 09:00 Diagnostic Test (Pha) (Accu-Chek) 1 ea AC MEALS AND BEDTIME XX Last admin istered on 10/10/18 12:29; Admin Dose 1 EA; Start 10/03/18 at 07:00 Diagnostic Test (Pha) (Accu-Chek) 1 ea 02 XX Last administered on 10/07/18at 02:21; Admin Dose 1 EA; Start 10/04/18 at 02:00 Insulin Aspart (Novolog Insulin Pen) NOVOLOG *MODERATE* ALGORITHM WITH MEALS BEDTIME SC Last administered on 10/10/18at 12:33; Admin Dose 6 UNIT; Start 10/03/18 at 08:00 Miscellaneous Information 1 ea NOTE XX ; Start 10/03/18 at 02:30 Glucose (Glutose) 15 gm Q15M PRN PO DECREASED GLUCOSE; Start 10/03/18 at 02:30 Glucose (Glutose) 22.5 gm Q15M PRN PO DECREASED GLUCOSE; Start 10/03/18 at 02:30 Dextrose (D50w Syringe) 25 ml Q15M PRN IV DECREASED GLUCOSE; Start 10/03/18 at 02:30 Dextrose (D50w Syringe) 50 ml Q15M PRN IV DECREASED GLUCOSE; Start 10/03/18 at 02:30 Glucagon (Glucagen) 1 mg Q15M PRN IM DECREASED GLUCOSE; Start 10/03/18 at 02:30 Glucose (Glutose) 15 gm Q15M PRN BUCCAL DECREASED GLUCOSE; Start 10/03/18 at 02:30 Cyanocobalamin (Vitamin B12) 1,000 mcg DAILY PO Last administered on 10/10/18at 08:55; Admin Dose 1,000 MCG; Start 10/03/18 at 09:00 Docusate Sodium (Colace) 100 mg BID PO Last administered on 10/10/18at 08:55; Admin Dose 100 MG; Start 10/06/18 at 21:00 Bisacodyl (Dulcolax) 10 mg DAILY PRN PO CONSTIPATION Last administered on 10/07/18at 06:08; Admin Dose 10 MG; Start 10/06/18 at 19:00 Polyethylene Glycol (Miralax) 17 gm DAILY PRN PO CONSTIPATION; Start 10/08/18 at 21:00 Carvedilol (Coreg) 6.25 mg BID GTB Last administered on 10/10/18at 08:56; Admin Dose 6.25 MG; Start 10/09/18 at 21:00 SELMA ELMORE Oct 10, 2018 14:03
--- NOTE | 2018-10-10 14:26 | CONS ---
Assessment/Plan Assessment/Plan Assessment/Plan (Daily) 1. acute on chronic renal failure 2/2 Hemodynamics 2. H/o Ischemic cardiomyopathy with last known EF of 25% s/p AICD placement 3. H/o CAD with previous Coronary stent placement 4. H/o COPD 5. H/o DM II 6. H/O depression 7. H/o Arthritis 8. H/o CVA Plan: BUN/Cr improved to 19/1.67- Other electrolytes stable ,offf IVF Now continue Lasix 20mg po dialy < Lisinopril 2.5 mg po daily Renal US C/w CKD Cardioloyg following will follow up Consultation Date/Type/Reason Admit Date/Time Oct 02, 2018 at 20:53 Initial Consult Date Requesting Provider: DAMIR LATIF Date/Time of Note DATE: 10/10/18 TIME: 14:26 Exam/Review of Systems Exam Vitals Vital Signs Date Temp Pulse Resp B/P (MAP) Pulse Ox O2 O2 Flow FiO2 Time Delivery Rate 10/10/18 98.1 57 20 102/55 98 Room Air 11:05 (71) Intake and Output 10/09/18 10/09/18 10/10/18 1515:00 23:00 07:00 IntakeIntake Total 800 ml OutputOutput Total 150 ml 1050 ml 200 ml BalanceBalance -150 ml -250 ml -200 ml Exam Constitutional: alert, awake Respiratory: clear to auscultation Cardiovascular: regular rate and rhythm, nl pulses Gastrointestinal: soft, non-tender Musculoskeletal: nl extremities to inspection Extremities: normal pulses Neurological: Non focal Results Result Diagram: 10/08/18 0523 10/10/18 0540 Results 24hrs Laboratory Tests Test 10/09/18 17:23 10/09/18 20:46 10/10/18 05:40 10/10/18 07:41 Bedside Glucose 124 165 97 Sodium Level 137 Potassium Level 4.2 Chloride Level 102 Carbon Dioxide Level 27 Anion Gap 8 Blood Urea Nitrogen 19 Creatinine 1.67 H Est Glomerular Filtrat Rate mL/min Glucose Level 97 Calcium Level 9.5 Magnesium Level 2.0 Test 10/10/18 12:29 Bedside Glucose 251 H Medications Medication Current Medications IV Flush (NS 3 ml) 3 ml PER PROTOCOL IV ; Start 10/02/18 at 21:30 Ondansetron HCl (Zofran Inj) 4 mg Q6H PRN IV NAUSEA/VOMITING; Start 10/02/18 at 21:30 Acetaminophen (Tylenol Tab) 650 mg Q6H PRN PO .PAIN 1-3 OR TEMP; Start 10/02/18 at 21:30 Morphine Sulfate (morphine) 2 mg Q4H PRN IV .PAIN 7-10; Start 10/02/18 at 21:30 Famotidine (Pepcid) 20 mg DAILY PO Last administered on 10/10/18 08:55; Admin Dose 20 MG; Start 10/03/18 at 09:00 Enoxaparin Sodium (Lovenox) 30 mg DAILY SC Last administered on 10/10/18 09:11; Admin Dose 30 MG; Start 10/03/18 at 09:00 Allopurinol (Zyloprim) 100 mg DAILY PO Last administered on 10/10/18 08:55; Admin Dose 100 MG; Start 10/03/18 at 09:00 Aripiprazole (Abilify) 5 mg DAILY PO Last administered on 10/10/18 08:55; Admin Dose 5 MG; Start 10/03/18 at 09:00 Atorvastatin Calcium (Lipitor) 80 mg QHS PO Last administered on 10/09/18 20:49; Admin Dose 80 MG; Start 10/03/18 at 21:00 Digoxin (Digoxin) 0.125 mg DAILY PO Last administered on 10/10/18 08:57; Admin Dose 0.125 MG; Start 10/03/18 at 09:00 Furosemide (Lasix) 20 mg DAILY PO Last administered on 10/10/18 09:04; Admin Dose 20 MG; Start 10/03/18 at 09:00 Glimepiride (Amaryl) 2 mg WITH BREAKFAST PO ; Start 10/03/18 at 08:00; Status Hold Lamotrigine (Lamictal) 100 mg BID PO Last administered on 10/10/18 08:55; Admin Dose 100 MG; Start 10/03/18 at 09:00 Levothyroxine Sodium (Synthroid) 150 mcg BEFORE BREAKFAST PO Last administered on 10/10/18 07:40; Admin Dose 150 MCG; Start 10/03/18 at 07:00 Lisinopril (Zestril) 2.5 mg DAILY PO Last administered on 10/10/18 08:57; Admin Dose 2.5 MG; Start 10/03/18 at 09:00 Diagnostic Test (Pha) (Accu-Chek) 1 ea AC MEALS AND BEDTIME XX Last administered on 10/10/18at 12:29; Admin Dose 1 EA; Start 10/03/18 at 07:00 Diagnostic Test (Pha) (Accu-Chek) 1 ea 02 XX Last administered on 10/07/18at 02:21; Admin Dose 1 EA; Start 10/04/18 at 02:00 Insulin Aspart (Novolog Insulin Pen) NOVOLOG *MODERATE* ALGORITHM WITH MEALS BEDTIME SC Last administered on 10/10/18at 12:33; Admin Dose 6 UNIT; Start 10/03/18 at 08:00 Miscellaneous Information 1 ea NOTE XX ; Start 10/03/18 at 02:30 Glucose (Glutose) 15 gm Q15M PRN PO DECREASED GLUCOSE; Start 10/03/18 at 02:30 Glucose (Glutose) 22.5 gm Q15M PRN PO DECREASED GLUCOSE; Start 10/03/18 at 02:30 Dextrose (D50w Syringe) 25 ml Q15M PRN IV DECREASED GLUCOSE; Start 10/03/18 at 02:30 Dextrose (D50w Syringe) 50 ml Q15M PRN IV DECREASED GLUCOSE; Start 10/03/18 at 02:30 Glucagon (Glucagen) 1 mg Q15M PRN IM DECREASED GLUCOSE; Start 10/03/18 at 02:30 Glucose (Glutose) 15 gm Q15M PRN BUCCAL DECREASED GLUCOSE; Start 10/03/18 at 02:30 Cyanocobalamin (Vitamin B12) 1,000 mcg DAILY PO Last administered on 10/10/18at 08:55; Admin Dose 1,000 MCG; Start 10/03/18 at 09:00 Docusate Sodium (Colace) 100 mg BID PO Last administered on 10/10/18at 08:55; A dmin Dose 100 MG; Start 10/06/18 at 21:00 Bisacodyl (Dulcolax) 10 mg DAILY PRN PO CONSTIPATION Last administered on 10/07/18at 06:08; Admin Dose 10 MG; Start 10/06/18 at 19:00 Polyethylene Glycol (Miralax) 17 gm DAILY PRN PO CONSTIPATION; Start 10/08/18 at 21:00 Carvedilol (Coreg) 6.25 mg BID GTB Last administered on 10/10/18at 08:56; Admin Dose 6.25 MG; Start 10/09/18 at 21:00 MIHAI JOSEPH MD Oct 10, 2018 14:26
[2018-10-10 15:03] VITALS: BP 102/47; PULSE 85; RESP 20
--- NOTE | 2018-10-10 17:18 | CONS ---
Assessment/Plan Assessment/Plan Hospital Course (Demo Recall) IMPRESSION: 1. Automatic implantable cardioverter defibrillator with possible dysfunction, failure to capture. s/p interrogation and adjustment with resolution of failure to capture 2. Dizziness. Rule cardiology, rule out cardiac arrhythmia, rule out pacemaker dysfunction. 3. Cardiomyopathy with severely depressed left ventricular ejection fraction of approximately 25% with congestive heart failure, systolic, acute on chronic.- neg trop x 3 4. Renal failure, acute on chronic. 5. Borderline hypotension in the setting of heart dysfunction. 6. Diabetes mellitus. 7. Recurrent falls. 8. Hypothyroidism. 9. NSVT-recurrent short runs by tele still again today on increased BB, asymptom atic REcc: -Tele -s/p interrogation and adjustment to ICD/PPM this am -Continue zestril as tolerated only -Continue coreg s/p slight increase given short runs of NSVT -Continue lasix diuresis and follow volume status and renal function -continue statin -keep Mg>2 and K>4 -will consider lexiscan to assess for ischemia lending to recurrent bouts of NSVT Consultation Date/Type/Reason Admit Date/Time Oct 02, 2018 at 20:53 Initial Consult Date 10/04/18 Type of Consult Cardiology Reason for Consultation CHF/NSVT Requesting Provider: DAMIR LATIF Date/Time of Note DATE: 10/10/18 TIME: 17:15 Exam/Review of Systems Vital Signs Vitals Vital Signs Date Temp Pulse Resp B/P (MAP) Pulse Ox O2 O2 Flow FiO2 Time Delivery Rate 10/10/18 98.7 85 20 102/47 98 Room Air 15:03 (65) Intake and Output 10/09/18 10/09/18 10/10/18 1515:00 23:00 07:00 IntakeIntake Total 800 ml OutputOutput Total 150 ml 1050 ml 200 ml BalanceBalance -150 ml -250 ml -200 ml Exam Exam Review of Systems: CONSTITUTIONAL: No fevers, chills. PULMONARY: No sob CARDIOVASCULAR: No chest pain/palpitations GASTROINTESTINAL: No nausea/vomiting. GENITOURINARY: No hematuria/dysuria. MUSCULOSKELETAL: No myagias/arthalgias. PSYCHIATRIC: The patient denies depression. NEUROLOGIC: No weakness Constitutional: alert Psych: no complaints Head: normocephalic ENMT: mucosa pink and moist Neck: supple, jvd (9 cm water) Respiratory: diminished breath sounds (at bases/B) Cardiovascular: regular rate and rhythm Gastrointestinal: soft, non-tender Musculoskeletal: muscle weakness (generalized) Extremities: edema (none) Neurological: other (No focal deficits) Labs Result Diagram: 10/08/18 0523 10/10/18 0540 Results 24hrs Laboratory Tests Test 10/09/18 17:23 10/09/18 20:46 10/10/18 05:40 10/10/18 07:41 Bedside Glucose 124 165 97 Sodium Level 137 Potassium Level 4.2 Chloride Level 102 Carbon Dioxide Level 27 Anion Gap 8 Blood Urea Nitrogen 19 Creatinine 1.67 H Est Glomerular Filtrat Rate mL/min Glucose Level 97 Calcium Level 9.5 Magnesium Level 2.0 Test 10/10/18 12:29 Bedside Glucose 251 H Medications Medications Current Medications IV Flush (NS 3 ml) 3 ml PER PROTOCOL IV ; Start 10/02/18 at 21:30 Ondansetron HCl (Zofran Inj) 4 mg Q6H PRN IV NAUSEA/VOMITING; Start 10/02/18 at 21:30 Acetaminophen (Tylenol Tab) 650 mg Q6H PRN PO .PAIN 1-3 OR TEMP; Start 10/02/18 at 21:30 Morphine Sulfate (morphine) 2 mg Q4H PRN IV .PAIN 7-10; Start 10/02/18 at 21:30 Famotidine (Pepcid) 20 mg DAILY PO Last administered on 10/10/18at 08:55; Admin Dose 20 MG; Start 10/03/18 at 09:00 Enoxaparin Sodium (Lovenox) 30 mg DAILY SC Last administered on 10/10/18at 09:11; Admin Dose 30 MG; Start 10/03/18 at 09:00 Allopurinol (Zyloprim) 100 mg DAILY PO Last administered on 10/10/18 08:55; Admin Dose 100 MG; Start 10/03/18 at 09:00 Aripiprazole (Abilify) 5 mg DAILY PO Last administered on 10/10/18at 08:55; Admin Dose 5 MG; Start 10/03/18 at 09:00 Atorvastatin Calcium (Lipitor) 80 mg QHS PO Last administered on 10/09/18at 20:49; Admin Dose 80 MG; Start 10/03/18 at 21:00 Digoxin (Digoxin) 0.125 mg DAILY PO Last administered on 10/10/18 08:57; Admin Dose 0.125 MG; Start 10/03/18 at 09:00 Furosemide (Lasix) 20 mg DAILY PO Last administered on 10/10/18 09:04; Admin Dose 20 MG; Start 10/03/18 at 09:00 Glimepiride (Amaryl) 2 mg WITH BREAKFAST PO ; Start 10/03/18 at 08:00; Status Hold Lamotrigine (Lamictal) 100 mg BID PO Last administered on 10/10/18 08:55; Admin Dose 100 MG; Start 10/03/18 at 09:00 Levothyroxine Sodium (Synthroid) 150 mcg BEFORE BREAKFAST PO Last administered on 10/10/18 07:40; Admin Dose 150 MCG; Start 10/03/18 at 07:00 Lisinopril (Zestril) 2.5 mg DAILY PO Last administered on 10/10/18 08:57; Admin Dose 2.5 MG; Start 10/03/18 at 09:00 Diagnostic Test (Pha) (Accu-Chek) 1 ea AC MEALS AND BEDTIME XX Last administered on 10/10/18 12:29; Admin Dose 1 EA; Start 10/03/18 at 07:00 Diagnostic Test (Pha) (Accu-Chek) 1 ea 02 XX Last administered on 10/07/18at 02:21; Admin Dose 1 EA; Start 10/04/18 at 02:00 Insulin Aspart (Novolog Insulin Pen) NOVOLOG *MODERATE* ALGORITHM WITH MEALS BEDTIME SC Last administered on 10/10/18 12:33; Admin Dose 6 UNIT; Start 10/03/18 at 08:00 Miscellaneous Information 1 ea NOTE XX ; Start 10/03/18 at 02:30 Glucose (Glutose) 15 gm Q15M PRN PO DECREASED GLUCOSE; Start 10/03/18 at 02:30 Glucose (Glutose) 22.5 gm Q15M PRN PO DECREASED GLUCOSE; Start 10/03/18 at 02:30 Dextrose (D50w Syringe) 25 ml Q15M PRN IV DECREASED GLUCOSE; Start 10/03/18 at 02:30 Dextrose (D50w Syringe) 50 ml Q15M PRN IV DECREASED GLUCOSE; Start 10/03/18 at 02:30 Glucagon (Glucagen) 1 mg Q15M PRN IM DECREASED GLUCOSE; Start 10/03/18 at 02:30 Glucose (Glutose) 15 gm Q15M PRN BUCCAL DECREASED GLUCOSE; Start 10/03/18 at 02:30 Cyanocobalamin (Vitamin B12) 1,000 mcg DAILY PO Last administered on 10/10/18 08:55; Admin Dose 1,000 MCG; Start 10/03/18 at 09:00 Docusate Sodium (Colace) 100 mg BID PO Last administered on 10/10/18 08:55; Admin Dose 100 MG; Start 10/06/18 at 21:00 Bisacodyl (Dulcolax) 10 mg DAILY PRN PO CONSTIPATION Last administered on 10/07/18 06:08; Admin Dose 10 MG; Start 10/06/18 at 19:00 Polyethylene Glycol (Miralax) 17 gm DAILY PRN PO CONSTIPATION; Start 10/08/18 at 21:00 Carvedilol (Coreg) 6.25 mg BID GTB Last administered on 10/10/18 08:56; Admin Dose 6.25 MG; Start 10/09/18 at 21:00 JACLYN RODRIGUEZ Oct 10, 2018 17:18
[2018-10-10 20:05] VITALS: BP 110/56; PULSE 58; RESP 18
[2018-10-10] MEDS: ATORVASTATIN 80 MG TAB PO SCH (21:15)
[2018-10-11] VITALS (8 sets, daily range): BP systolic 85–126; BP diastolic 48–58; PULSE 53–68; RESP 18–20
[2018-10-11] MEDS: ACCU-CHEK XX SCH ×5 (02:00→21:00)
[2018-10-11] MEDS: LEVOTHYROXINE 150 MCG TAB PO SCH (06:25)
--- NOTE | 2018-10-11 07:29 | CONS ---
Assessment/Plan Assessment/Plan Assessment/Plan (Daily) 1. acute on chronic renal failure 2/2 Hemodynamics 2. H/o Ischemic cardiomyopathy with last known EF of 25% s/p AICD placement 3. H/o CAD with previous Coronary stent placement 4. H/o COPD 5. H/o DM II 6. H/O depression 7. H/o Arthritis 8. H/o CVA Plan: BUN/Cr 20/2.0- Other electrolytes stable ,offf IVF Now continue Lasix 20mg po dialy < Lisinopril 2.5 mg po daily Renal US C/w CKD Cardioloyg following will follow up Consultation Date/Type/Reason Admit Date/Time Oct 02, 2018 at 20:53 Initial Consult Date Requesting Provider: DAMIR LATIF Date/Time of Note DATE: 10/11/18 TIME: 07:29 Exam/Review of Systems Exam Vitals Vital Signs Date Temp Pulse Resp B/P (MAP) Pulse Ox O2 O2 Flow FiO2 Time Delivery Rate 10/11/18 98.1 56 20 93/55 (68) 95 Room Air 07:14 Intake and Output 10/10/18 10/10/18 10/11/18 1414:59 22:59 06:59 IntakeIntake Total 730 ml 240 ml OutputOutput Total 350 ml 100 ml 250 ml BalanceBalance 380 ml 140 ml -250 ml Results Result Diagram: 10/08/18 0523 10/11/18 0601 Results 24hrs Laboratory Tests Test 10/10/18 07:41 10/10/18 12:29 10/10/18 17:23 10/10/18 20:28 Bedside Glucose 97 251 H 106 157 Test 10/11/18 06:01 Sodium Level 137 Potassium Level 4.3 Chloride Level 102 Carbon Dioxide Level 27 Anion Gap 8 Blood Urea Nitrogen 21 H Creatinine 2.00 H Est Glomerular Filtrat Rate mL/min Glucose Level 104 Calcium Level 8.9 Medications Medication Current Medications IV Flush (NS 3 ml) 3 ml PER PROTOCOL IV ; Start 10/02/18 at 21:30 Ondansetron HCl (Zofran Inj) 4 mg Q6H PRN IV NAUSEA/VOMITING; Start 10/02/18 at 21:30 Acetaminophen (Tylenol Tab) 650 mg Q6H PRN PO .PAIN 1-3 OR TEMP; Start 10/02/18 at 21:30 Morphine Sulfate (morphine) 2 mg Q4H PRN IV .PAIN 7-10; Start 10/02/18 at 21:30 Famotidine (Pepcid) 20 mg DAILY PO Last administered on 10/10/18 08:55; Admin Dose 20 MG; Start 10/03/18 at 09:00 Enoxaparin Sodium (Lovenox) 30 mg DAILY SC Last administered on 10/10/18 09:11; Admin Dose 30 MG; Start 10/03/18 at 09:00 Allopurinol (Zyloprim) 100 mg DAILY PO Last administered on 10/10/18 08:55; Admin Dose 100 MG; Start 10/03/18 at 09:00 Aripiprazole (Abilify) 5 mg DAILY PO Last administered on 10/10/18 08:55; Admin Dose 5 MG; Start 10/03/18 at 09:00 Atorvastatin Calcium (Lipitor) 80 mg QHS PO Last administered on 10/10/18 21:15; Admin Dose 80 MG; Start 10/03/18 at 21:00 Furosemide (Lasix) 20 mg DAILY PO Last administered on 10/10/18 09:04; Admin Dose 20 MG; Start 10/03/18 at 09:00 Glimepiride (Amaryl) 2 mg WITH BREAKFAST PO ; Start 10/03/18 at 08:00; Status Hold Lamotrigine (Lamictal) 100 mg BID PO Last administered on 10/10/18 21:15; Admin Dose 100 MG; Start 10/03/18 at 09:00 Levothyroxine Sodium (Synthroid) 150 mcg BEFORE BREAKFAST PO Last administered on 10/11/18 06:25; Admin Dose 150 MCG; Start 10/03/18 at 07:00 Lisinopril (Zestril) 2.5 mg DAILY PO Last administered on 10/10/18 08:57; Admin Dose 2.5 MG; Start 10/03/18 at 09:00 Diagnostic Test (Pha) (Accu-Chek) 1 ea AC MEALS AND BEDTIME XX Last administered on 10/10/18 17:25; Admin Dose 1 EA; Start 10/03/18 at 07:00 Diagnostic Test (Pha) (Accu-Chek) 1 ea 02 XX Last administered on 8/12/19at 02:21; Admin Dose 1 EA; Start 10/04/18 at 02:00 Insulin Aspart (Novolog Insulin Pen) NOVOLOG *MODERATE* ALGORITHM WITH MEALS BEDTIME SC Last administered on 10/10/18at 12:33; Admin Dose 6 UNIT; Start 10/03/18 at 08:00 Miscellaneous Information 1 ea NOTE XX ; Start 10/03/18 at 02:30 Glucose (Glutose) 15 gm Q15M PRN PO DECREASED GLUCOSE; Start 10/03/18 at 02:30 Glucose (Glutose) 22.5 gm Q15M PRN PO DECREASED GLUCOSE; Start 10/03/18 at 02:30 Dextrose (D50w Syringe) 25 ml Q15M PRN IV DECREASED GLUCOSE; Start 10/03/18 at 02:30 Dextrose (D50w Syringe) 50 ml Q15M PRN IV DECREASED GLUCOSE; Start 10/03/18 at 02:30 Glucagon (Glucagen) 1 mg Q15M PRN IM DECREASED GLUCOSE; Start 10/03/18 at 02:30 Glucose (Glutose) 15 gm Q15M PRN BUCCAL DECREASED GLUCOSE; Start 10/03/18 at 0 2:30 Cyanocobalamin (Vitamin B12) 1,000 mcg DAILY PO Last administered on 10/10/18at 08:55; Admin Dose 1,000 MCG; Start 10/03/18 at 09:00 Docusate Sodium (Colace) 100 mg BID PO Last administered on 10/10/18at 21:15; Admin Dose 100 MG; Start 10/06/18 at 21:00 Bisacodyl (Dulcolax) 10 mg DAILY PRN PO CONSTIPATION Last administered on 10/07/18at 06:08; Admin Dose 10 MG; Start 10/06/18 at 19:00 Polyethylene Glycol (Miralax) 17 gm DAILY PRN PO CONSTIPATION; Start 10/08/18 at 21:00 Carvedilol (Coreg) 6.25 mg BID GTB Last administered on 10/10/18at 21:16; Admin Dose 6.25 MG; Start 10/09/18 at 21:00 Digoxin (Digoxin) 0.125 mg DAILY@1300 PO ; Start 10/11/18 at 13:00 MIHAI JOSEPH MD Oct 11, 2018 07:29
[2018-10-11] MEDS: INSULIN ASPART [NOVOLOG] 3 ML PEN SC SCH ×4 (07:47→20:59)
[2018-10-11] MEDS: DOCUSATE SODIUM 100 MG CAP PO SCH ×2 (08:26→20:58)
[2018-10-11] MEDS: ALLOPURINOL 100 MG TAB PO SCH (08:27)
[2018-10-11] MEDS: FAMOTIDINE 20 MG TAB PO SCH (08:27)
[2018-10-11] MEDS: LAMOTRIGINE 100 MG TAB PO SCH ×2 (08:27→20:58)
[2018-10-11] MEDS: ARIPIPRAZOLE 5 MG TAB PO SCH (08:27)
[2018-10-11] MEDS: CYANOCOBALAMIN 500 MCG TAB PO SCH (08:27)
[2018-10-11] MEDS: LISINOPRIL 5 MG TAB PO SCH (08:29)
[2018-10-11] MEDS: FUROSEMIDE 20 MG TAB PO SCH (08:29)
[2018-10-11] MEDS: ENOXAPARIN 30 MG/0.3 ML SYG SC SCH (08:36)
[2018-10-11] MEDS ORDERED: REGADENOSON 0.4 MG/5 ML SYG ONE (11:12)
--- NOTE | 2018-10-11 11:45 | CONS ---
Assessment/Plan Assessment/Plan Hospital Course (Demo Recall) IMPRESSION: 1. Automatic implantable cardioverter defibrillator with possible dysfunction, failure to capture. s/p interrogation and adjustment with resolution of failure to capture 2. Dizziness. Rule cardiology, rule out cardiac arrhythmia, rule out pacemaker dysfunction. 3. Cardiomyopathy with severely depressed left ventricular ejection fraction of approximately 25% with congestive heart failure, systolic, acute on chronic.- neg trop x 3 4. Renal failure, acute on chronic. 5. Borderline hypotension in the setting of heart dysfunction. 6. Diabetes mellitus. 7. Recurrent falls. 8. Hypothyroidism. 9. NSVT-recurrent short runs by tele still again today on increased BB, asymptom atic REcc: -Tele -Continue zestril as tolerated only -Continue coreg as tolerated s/p slight increase given recurrent short runs of NSVT -Continue lasix diuresis and follow volume status and renal function -continue statin -keep Mg>2 and K>4 -Lexiscan to assess for ischemia lending to recurrent bouts of NSVT this am and if no active ischemia then patient is ok for d/c from [facility] Consultation Date/Type/Reason Admit Date/Time Oct 02, 2018 at 20:53 Initial Consult Date 10/04/18 Type of Consult Cardiology Reason for Consultation cardiomyopathy/NSVT Requesting Provider: DAMIR LATIF Date/Time of Note DATE: 10/11/18 TIME: 11:43 Exam/Review of Systems Vital Signs Vitals Vital Signs Date Temp Pulse Resp B/P (MAP) Pulse Ox O2 O2 Flow FiO2 Time Delivery Rate 10/11/18 98.1 56 20 93/55 (68) 95 Room Air 07:14 Intake and Output 10/10/18 10/10/18 10/11/18 1515:00 23:00 07:00 IntakeIntake Total 730 ml 240 ml OutputOutput Total 350 ml 250 ml 100 ml BalanceBalance 380 ml -10 ml -100 ml Exam Exam Review of Systems: CONSTITUTIONAL: No fevers, chills. PULMONARY: No sob CARDIOVASCULAR: No chest pain/palpitations GASTROINTESTINAL: No nausea/vomiting. GENITOURINARY: No hematuria/dysuria. MUSCULOSKELETAL: No myagias/arthalgias. PSYCHIATRIC: The patient denies depression. NEUROLOGIC: No weakness Constitutional: alert Psych: no complaints Head: normocephalic ENMT: mucosa pink and moist Neck: supple, jvd (9 cm water) Respiratory: diminished breath sounds (at bases/B) Cardiovascular: regular rate and rhythm Gastrointestinal: soft, non-tender Musculoskeletal: muscle tone (normal) Extremities: edema (trace/B) Neurological: other (No focal deficits) Labs Result Diagram: 10/08/18 0523 10/11/18 0601 Results 24hrs Laboratory Tests Test 10/10/18 12:29 10/10/18 17:23 10/10/18 20:28 10/11/18 06:01 Bedside Glucose 251 H 106 157 Sodium Level 137 Potassium Level 4.3 Chloride Level 102 Carbon Dioxide Level 27 Anion Gap 8 Blood Urea Nitrogen 21 H Creatinine 2.00 H Est Glomerular Filtrat Rate mL/min Glucose Level 104 Calcium Level 8.9 Test 10/11/18 07:46 Bedside Glucose 105 Medications Medications Current Medications IV Flush (NS 3 ml) 3 ml PER PROTOCOL IV ; Start 10/02/18 at 21:30 Ondansetron HCl (Zofran Inj) 4 mg Q6H PRN IV NAUSEA/VOMITING; Start 10/02/18 at 21:30 Acetaminophen (Tylenol Tab) 650 mg Q6H PRN PO .PAIN 1-3 OR TEMP; Start 10/02/18 at 21:30 Morphine Sulfate (morphine) 2 mg Q4H PRN IV .PAIN 7-10; Start 10/02/18 at 21:30 Famotidine (Pepcid) 20 mg DAILY PO Last administered on 10/11/18at 08:27; Admin Dose 20 MG; Start 10/03/18 at 09:00 Enoxaparin Sodium (Lovenox) 30 mg DAILY SC Last administered on 10/11/18at 08:36; Admin Dose 30 MG; Start 10/03/18 at 09:00 Allopurinol (Zyloprim) 100 mg DAILY PO Last administered on 10/11/18 08:27; Admin Dose 100 MG; Start 10/03/18 at 09:00 Aripiprazole (Abilify) 5 mg DAILY PO Last administered on 10/11/18 08:27; Admin Dose 5 MG; Start 10/03/18 at 09:00 Atorvastatin Calcium (Lipitor) 80 mg QHS PO Last administered on 10/10/18at 21:15; Admin Dose 80 MG; Start 10/03/18 at 21:00 Furosemide (Lasix) 20 mg DAILY PO Last administered on 10/11/18 08:29; Admin Dose 20 MG; Start 10/03/18 at 09:00 Glimepiride (Amaryl) 2 mg WITH BREAKFAST PO ; Start 10/03/18 at 08:00; Status Hold Lamotrigine (Lamictal) 100 mg BID PO Last administered on 10/11/18 08:27; Admin Dose 100 MG; Start 10/03/18 at 09:00 Levothyroxine Sodium (Synthroid) 150 mcg BEFORE BREAKFAST PO Last administered on 10/11/18 06:25; Admin Dose 150 MCG; Start 10/03/18 at 07:00 Lisinopril (Zestril) 2.5 mg DAILY PO Last administered on 10/11/18 08:29; Admin Dose 2.5 MG; Start 10/03/18 at 09:00 Diagnostic Test (Pha) (Accu-Chek) 1 ea AC MEALS AND BEDTIME XX Last administered on 10/10/18at 17:25; Admin Dose 1 EA; Start 10/03/18 at 07:00 Diagnostic Test (Pha) (Accu-Chek) 1 ea 02 XX Last administered on 10/07/18at 02:21; Admin Dose 1 EA; Start 10/04/18 at 02:00 Insulin Aspart (Novolog Insulin Pen) NOVOLOG *MODERATE* ALGORITHM WITH MEALS BEDTIME SC Last administered on 10/10/18at 12:33; Admin Dose 6 UNIT; Start 10/03/18 at 08:00 Miscellaneous Information 1 ea NOTE XX ; Start 10/03/18 at 02:30 Glucose (Glutose) 15 gm Q15M PRN PO DECREASED GLUCOSE; Start 10/03/18 at 02:30 Glucose (Glutose) 22.5 gm Q15M PRN PO DECREASED GLUCOSE; Start 10/03/18 at 02:30 Dextrose (D50w Syringe) 25 ml Q15M PRN IV DECREASED GLUCOSE; Start 10/03/18 at 02:30 Dextrose (D50w Syringe) 50 ml Q15M PRN IV DECREASED GLUCOSE; Start 10/03/18 at 02:30 Glucagon (Glucagen) 1 mg Q15M PRN IM DECREASED GLUCOSE; Start 10/03/18 at 02:30 Glucose (Glutose) 15 gm Q15M PRN BUCCAL DECREASED GLUCOSE; Start 10/03/18 at 02:30 Cyanocobalamin (Vitamin B12) 1,000 mcg DAILY PO Last administered on 10/11/18at 08:27; Admin Dose 1,000 MCG; Start 10/03/18 at 09:00 Docusate Sodium (Colace) 100 mg BID PO Last administered on 10/11/18at 08:26; Admin Dose 100 MG; Start 10/06/18 at 21:00 Bisacodyl (Dulcolax) 10 mg DAILY PRN PO CONSTIPATION Last administered on 10/07/18at 06:08; Admin Dose 10 MG; Start 10/06/18 at 19:00 Polyethylene Glycol (Miralax) 17 gm DAILY PRN PO CONSTIPATION; Start 10/08/18 at 21:00 Carvedilol (Coreg) 6.25 mg BID GTB Last administered on 10/11/18at 08:28; Admin Dose 6.25 MG; Start 10/09/18 at 21:00 Digoxin (Digoxin) 0.125 mg DAILY@1300 PO ; Start 10/11/18 at 13:00 JACLYN RODRIGUEZ Oct 11, 2018 11:45
[2018-10-11] MEDS: DIGOXIN 0.125 MG TAB PO SCH (13:22)
--- NOTE | 2018-10-11 14:52 | PN ---
Date/Time of Note Date/Time of Note DATE: 10/11/18 TIME: 14:50 Assessment/Plan VTE Prophylaxis Risk score (from Ns)>0 risk: 6 SCD applied (from Ns): Yes Pharmacological prophylaxis: LMWH Lines/Catheters IV Catheter Type [facility]from [facility] Assessment/Plan Hospital Course Patient is status post Lexiscan today for evaluation for possible ischemia, patient is continues to have frequent short run of NSVT. Continue telemetry monitoring. Assessment/Plan -Automatic implantable cardioverter defibrillator with possible dysfunction, failure to capture. s/p interrogation and adjustment with resolution of failure to capture. Dr. Choudhury is following in in cardiology consultation. -Dizziness. rule out cardiac arrhythmia, rule out pacemaker dysfunction. -Ischemic cardiomyopathy with ejection fraction of 25%. -Acute kidney injury on chronic kidney disease stage III, continue to monitor BUN and creatinine. Dr. Novak is following in nephrology consultation -Coronary artery disease with history of stent placement. Continue aspirin. -Status post transcatheter aortic valve replacement in 2016. -Chronic obstructive pulmonary disease. -Diabetes mellitus. Continue NovoLog per mild algorithm sliding scale. -Hypothyroidism, continue levothyroxine -Hx of ICD placement for symptomatic bradycardia. 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 Plan of care discussed with Dr. Giron. Result Diagram: 10/08/18 0523 10/11/18 0601 Results 24hrs Laboratory Tests Test 10/10/18 17:23 10/10/18 20:28 10/11/18 06:01 10/11/18 07:46 Bedside Glucose 106 157 105 Sodium Level 137 Potassium Level 4.3 Chloride Level 102 Carbon Dioxide Level 27 Anion Gap 8 Blood Urea Nitrogen 21 H Creatinine 2.00 H Est Glomerular Filtrat Rate mL/min Glucose Level 104 Calcium Level 8.9 Test 10/11/18 12:52 Bedside Glucose 123 Exam/Review of Systems Exam Vitals Vital Signs Date Temp Pulse Resp B/P (MAP) Pulse Ox O2 O2 Flow FiO2 Time Delivery Rate 10/11/18 97.9 59 20 99/57 (71) 99 Room Air 12:53 Intake and Output 10/10/18 10/10/18 10/11/18 1414:59 22:59 06:59 IntakeIntake Total 730 ml 240 ml OutputOutput Total 350 ml 100 ml 250 ml BalanceBalance 380 ml 140 ml -250 ml Exam Constitutional: alert, oriented Respiratory: clear to auscultation Cardiovascular: nl pulses, other (PPM) Gastrointestinal: soft, non-tender Musculoskeletal: nl extremities to inspection Extremities: normal pulses Neurological: nl mental status Results Results 24hrs Laboratory Tests Test 10/10/18 17:23 10/10/18 20:28 10/11/18 06:01 10/11/18 07:46 Bedside Glucose 106 157 105 Sodium Level 137 Potassium Level 4.3 Chloride Level 102 Carbon Dioxide Level 27 Anion Gap 8 Blood Urea Nitrogen 21 H Creatinine 2.00 H Est Glomerular Filtrat Rate mL/min Glucose Level 104 Calcium Level 8.9 Test 10/11/18 12:52 Bedside Glucose 123 Medications Medication Current Medications IV Flush (NS 3 ml) 3 ml PER PROTOCOL IV ; Start 10/02/18 at 21:30 Ondansetron HCl (Zofran Inj) 4 mg Q6H PRN IV NAUSEA/VOMITING; Start 10/02/18 at 21:30 Acetaminophen (Tylenol Tab) 650 mg Q6H PRN PO .PAIN 1-3 OR TEMP; Start 10/02/18 at 21:30 Morphine Sulfate (morphine) 2 mg Q4H PRN IV .PAIN 7-10; Start 10/02/18 at 21:30 Famotidine (Pepcid) 20 mg DAILY PO Last administered on 10/11/18at 08:27; Admin Dose 20 MG; Start 10/03/18 at 09:00 Enoxaparin Sodium (Lovenox) 30 mg DAILY SC Last administered on 10/11/18 08:36; Admin Dose 30 MG; Start 10/03/18 at 09:00 Allopurinol (Zyloprim) 100 mg DAILY PO Last administered on 10/11/18 08:27; Admin Dose 100 MG; Start 10/03/18 at 09:00 Aripiprazole (Abilify) 5 mg DAILY PO Last administered on 10/11/18 08:27; Admin Dose 5 MG; Start 10/03/18 at 09:00 Atorvastatin Calcium (Lipitor) 80 mg QHS PO Last administered on 10/10/18at 21:15; Admin Dose 80 MG; Start 10/03/18 at 21:00 Furosemide (Lasix) 20 mg DAILY PO Last administered on 10/11/18 08:29; Admin Dose 20 MG; Start 10/03/18 at 09:00 Glimepiride (Amaryl) 2 mg WITH BREAKFAST PO ; Start 10/03/18 at 08:00; Status Hold Lamotrigine (Lamictal) 100 mg BID PO Last administered on 10/11/18 08:27; Admin Dose 100 MG; Start 10/03/18 at 09:00 Levothyroxine Sodium (Synthroid) 150 mcg BEFORE BREAKFAST PO Last administered on 10/11/18 06:25; Admin Dose 150 MCG; Start 10/03/18 at 07:00 Lisinopril (Zestril) 2.5 mg DAILY PO Last administered on 10/11/18 08:29; Admin Dose 2.5 MG; Start 10/03/18 at 09:00 Diagnostic Test (Pha) (Accu-Chek) 1 ea AC MEALS AND BEDTIME XX Last administered on 10/11/18at 12:55; Admin Dose 1 EA; Start 10/03/18 at 07:00 Diagnostic Test (Pha) (Accu-Chek) 1 ea 02 XX Last administered on 10/07/18 02:21; Admin Dose 1 EA; Start 10/04/18 at 02:00 Insulin Aspart (Novolog Insulin Pen) NOVOLOG *MODERATE* ALGORITHM WITH MEALS BEDTIME SC Last administered on 10/10/18 12:33; Admin Dose 6 UNIT; Start 10/03/18 at 08:00 Miscellaneous Information 1 ea NOTE XX ; Start 10/03/18 at 02:30 Glucose (Glutose) 15 gm Q15M PRN PO DECREASED GLUCOSE; Start 10/03/18 at 02:30 Glucose (Glutose) 22.5 gm Q15M PRN PO DECREASED GLUCOSE; Start 10/03/18 at 02:30 Dextrose (D50w Syringe) 25 ml Q15M PRN IV DECREASED GLUCOSE; Start 10/03/18 at 02:30 Dextrose (D50w Syringe) 50 ml Q15M PRN IV DECREASED GLUCOSE; Start 10/03/18 at 02:30 Glucagon (Glucagen) 1 mg Q15M PRN IM DECREASED GLUCOSE; Start 10/03/18 at 02:30 Glucose (Glutose) 15 gm Q15M PRN BUCCAL DECREASED GLUCOSE; Start 10/03/18 at 02:30 Cyanocobalamin (Vitamin B12) 1,000 mcg DAILY PO Last administered on 10/11/18 08:27; Admin Dose 1,000 MCG; Start 10/03/18 at 09:00 Docusate Sodium (Colace) 100 mg BID PO Last administered on 10/11/18 08:26; Admin Dose 100 MG; Start 10/06/18 at 21:00 Bisacodyl (Dulcolax) 10 mg DAILY PRN PO CONSTIPATION Last administered on 10/07/18 06:08; Admin Dose 10 MG; Start 10/06/18 at 19:00 Polyethylene Glycol (Miralax) 17 gm DAILY PRN PO CONSTIPATION; Start 10/08/18 at 21:00 Carvedilol (Coreg) 6.25 mg BID GTB Last administered on 10/11/18 08:28; Admin Dose 6.25 MG; Start 10/09/18 at 21:00 Digoxin (Digoxin) 0.125 mg DAILY@1300 PO Last administered on 10/11/18 13:22; Admin Dose 0.125 MG; Start 10/11/18 at 13:00 SELMA ELMORE Oct 11, 2018 14:52
--- NOTE | 2018-10-11 18:46 | CARRPT ---
DATE OF PROCEDURE: 10/11/2018 PROCEDURE: Lexiscan Cardiolite stress test electrocardiogram portion. REASON FOR STRESS TESTING: Nonsustained ventricular tachycardia, cardiomyopathy with decreased left ventricular ejection fraction, assess for active ischemia. BASELINE VITAL SIGNS AND ELECTROCARDIOGRAM: Pulse 66, blood pressure 99/55. Electrocardiogram revea ls a ventricular paced rhythm, rate of 56. PROCEDURE: The patient underwent standard Lexiscan infusion protocol over 10 seconds followed by rad iolabeled tracer. The patient's test was stopped due to completion of protocol. Maximal achieved bl ood pressure during the test 107/53 with the patient actually having hypotensive response to stress t esting dropping down into the 80s systolic in recovery. Maximal heart rate during the test of 71. ELECTROCARDIOGRAM FINDINGS: The patient did not develop any new Lexiscan-induced ST or T-wave change s from baseline abnormalities. The patient had intermittent pacing which stopped during Lexiscan inf usion. SYMPTOMS: The patient had slight shortness of breath during stress test that resolved in recovery. No chest pain. IMPRESSION: 1. No Lexiscan-induced ST or T-wave changes from baseline abnormalities that are diagnostic of cardi ac ischemia. 2. No complaints of chest pain during stress testing. Positive shortness of breath, which resolved during recovery. 3. No documented premature ventricular contractions during stress testing. 4. Report of nuclear images to follow in separate dictation. Dictated By: JACLYN PATINO/ALBARO Conf#: [id number] DID#: [id number] CC: JOS FOSTER MD; DAMIR LATIF MD;*EndCC*
[2018-10-11] MEDS: ATORVASTATIN 80 MG TAB PO SCH (20:58)
[2018-10-12] VITALS: BP 108/50; PULSE 55; RESP 18
[2018-10-12] MEDS: ACCU-CHEK XX SCH ×4 (02:00→17:20)
[2018-10-12 04:00] VITALS: BP 108/57; PULSE 76; RESP 18
[2018-10-12] MEDS: LEVOTHYROXINE 150 MCG TAB PO SCH (06:30)
[2018-10-12] MEDS: INSULIN ASPART [NOVOLOG] 3 ML PEN SC SCH ×3 (07:57→17:20)
[2018-10-12 08:01] VITALS: BP_SYST 88; BP_SYST 99; BP_DIAS 53; PULSE 57; RESP 20
[2018-10-12] MEDS: DOCUSATE SODIUM 100 MG CAP PO SCH (08:34)
[2018-10-12] MEDS: LISINOPRIL 5 MG TAB PO SCH (08:34)
[2018-10-12] MEDS: FUROSEMIDE 20 MG TAB PO SCH (08:34)
[2018-10-12] MEDS: LAMOTRIGINE 100 MG TAB PO SCH (08:34)
[2018-10-12] MEDS: FAMOTIDINE 20 MG TAB PO SCH (08:34)
[2018-10-12] MEDS: CYANOCOBALAMIN 500 MCG TAB PO SCH (08:35)
[2018-10-12] MEDS: ALLOPURINOL 100 MG TAB PO SCH (08:36)
[2018-10-12] MEDS: ARIPIPRAZOLE 5 MG TAB PO SCH (08:36)
[2018-10-12] MEDS: ENOXAPARIN 30 MG/0.3 ML SYG SC SCH (08:41)
--- NOTE | 2018-10-12 11:17 | CONS ---
Assessment/Plan Assessment/Plan Hospital Course (Demo Recall) IMPRESSION: 1. Automatic implantable cardioverter defibrillator with possible dysfunction, failure to capture. s/p interrogation and adjustment with resolution of failure to capture 2. Dizziness. Rule cardiology, rule out cardiac arrhythmia, rule out pacemaker dysfunction. 3. Cardiomyopathy with severely depressed left ventricular ejection fraction of approximately 25-30% with congestive heart failure, systolic, acute on chronic.- neg trop x 3 4. Renal failure, acute on chronic. 5. Borderline hypotension in the setting of heart dysfunction. 6. Diabetes mellitus. 7. Recurrent falls. 8. Hypothyroidism. 9. NSVT-recurrent short runs by tele still again today on increased BB, asymp tomatic, s/p lexiscan 10/11 with no ischemia only scar EF 26% REcc: -Tele -Continue zestril as tolerated only -Continue coreg as tolerated s/p slight increase given recurrent short runs of NSVT -Continue lasix diuresis and follow volume status and renal function -continue statin -keep Mg>2 and K>4 -OK for d/c from cardiac standpoint Consultation Date/Type/Reason Admit Date/Time Oct 02, 2018 at 20:53 Initial Consult Date 10/04/18 Type of Consult Cardiology Reason for Consultation Cardiomyopathy/NSVT Requesting Provider: DAMIR LATIF Date/Time of Note DATE: 10/12/18 TIME: 11:15 Exam/Review of Systems Vital Signs Vitals Vital Signs Date Temp Pulse Resp B/P (MAP) Pulse Ox O2 O2 Flow FiO2 Time Delivery Rate 10/12/18 98.0 57 20 99/53 (68) 93 Room Air 08:01 Intake and Output 10/11/18 10/11/18 10/12/18 1515:00 23:00 07:00 IntakeIntake Total 290 ml 240 ml OutputOutput Total 400 ml 225 ml BalanceBalance -110 ml 240 ml -225 ml Exam Exam Review of Systems: CONSTITUTIONAL: No fevers, chills. PULMONARY: No sob CARDIOVASCULAR: No chest pain/palpitations GASTROINTESTINAL: No nausea/vomiting. GENITOURINARY: No hematuria/dysuria. MUSCULOSKELETAL: No myagias/arthalgias. PSYCHIATRIC: The patient denies depression. NEUROLOGIC: No weakness Constitutional: alert Psych: no complaints Head: normocephalic ENMT: mucosa pink and moist Neck: supple, jvd (9 cm water) Respiratory: diminished breath sounds (at bases/B) Cardiovascular: regular rate and rhythm Gastrointestinal: soft, non-tender Musculoskeletal: muscle weakness (mild generalized) Extremities: edema (none) Neurological: lethargic (somewhat) Labs Result Diagram: 10/08/18 0523 10/12/18 0535 Results 24hrs Laboratory Tests Test 10/11/18 12:52 10/11/18 17:24 10/11/18 20:54 10/12/18 05:35 Bedside Glucose 123 103 155 Sodium Level 135 Potassium Level 3.8 Chloride Level 101 Carbon Dioxide Level 28 Anion Gap 6 Blood Urea Nitrogen 25 H Creatinine 1.98 H Est Glomerular Filtrat Rate mL/min Glucose Level 99 Calcium Level 8.7 Magnesium Level 2.1 Test 10/12/18 07:56 Bedside Glucose 100 Medications Medications Current Medications IV Flush (NS 3 ml) 3 ml PER PROTOCOL IV ; Start 10/02/18 at 21:30 Ondansetron HCl (Zofran Inj) 4 mg Q6H PRN IV NAUSEA/VOMITING; Start 10/02/18 at 21:30 Acetaminophen (Tylenol Tab) 650 mg Q6H PRN PO .PAIN 1-3 OR TEMP; Start 10/02/18 at 21:30 Morphine Sulfate (morphine) 2 mg Q4H PRN IV .PAIN 7-10; Start 10/02/18 at 21:30 Famotidine (Pepcid) 20 mg DAILY PO Last administered on 10/12/18at 08:34; Admin Dose 20 MG; Start 10/03/18 at 09:00 Enoxaparin Sodium (Lovenox) 30 mg DAILY SC Last administered on 10/12/18at 08:41; Admin Dose 30 MG; Start 10/03/18 at 09:00 Allopurinol (Zyloprim) 100 mg DAILY PO Last administered on 10/12/18at 08:36; Admin Dose 100 MG; Start 10/03/18 at 09:00 Aripiprazole (Abilify) 5 mg DAILY PO Last administered on 10/12/18at 08:36; Admin Dose 5 MG; Start 10/03/18 at 09:00 Atorvastatin Calcium (Lipitor) 80 mg QHS PO Last administered on 10/11/18at 20:58; Admin Dose 80 MG; Start 10/03/18 at 21:00 Furosemide (Lasix) 20 mg DAILY PO Last administered on 10/12/18at 08:34; Admin Dose 20 MG; Start 10/03/18 at 09:00 Glimepiride (Amaryl) 2 mg WITH BREAKFAST PO ; Start 10/03/18 at 08:00; Status Hold Lamotrigine (Lamictal) 100 mg BID PO Last administered on 10/12/18at 08:34; Admin Dose 100 MG; Start 10/03/18 at 09:00 Levothyroxine Sodium (Synthroid) 150 mcg BEFORE BREAKFAST PO Last administered on 10/12/18at 06:30; Admin Dose 150 MCG; Start 10/03/18 at 07:00 Lisinopril (Zestril) 2.5 mg DAILY PO Last administered on 10/12/18at 08:34; Admin Dose 2.5 MG; Start 10/03/18 at 09:00 Diagnostic Test (Pha) (Accu-Chek) 1 ea AC MEALS AND BEDTIME XX Last administered on 10/12/18at 07:57; Admin Dose 1 EA; Start 10/03/18 at 07:00 Diagnostic Test (Pha) (Accu-Chek) 1 ea 02 XX Last administered on 10/07/18at 02:21; Admin Dose 1 EA; Start 10/04/18 at 02:00 Insulin Aspart (Novolog Insulin Pen) NOVOLOG *MODERATE* ALGORITHM WITH MEALS BEDTIME SC Last administered on 10/10/18at 12:33; Admin Dose 6 UNIT; Start 10/03/18 at 08:00 Miscellaneous Information 1 ea NOTE XX ; Start 10/03/18 at 02:30 Glucose (Glutose) 15 gm Q15M PRN PO DECREASED GLUCOSE; Start 10/03/18 at 02:30 Glucose (Glutose) 22.5 gm Q15M PRN PO DECREASED GLUCOSE; Start 10/03/18 at 02:30 Dextrose (D50w Syringe) 25 ml Q15M PRN IV DECREASED GLUCOSE; Start 10/03/18 at 02:30 Dextrose (D50w Syringe) 50 ml Q15M PRN IV DECREASED GLUCOSE; Start 10/03/18 at 02:30 Glucagon (Glucagen) 1 mg Q15M PRN IM DECREASED GLUCOSE; Start 10/03/18 at 02:30 Glucose (Glutose) 15 gm Q15M PRN BUCCAL DECREASED GLUCOSE; Start 10/03/18 at 02:30 Cyanocobalamin (Vitamin B12) 1,000 mcg DAILY PO Last administered on 10/12/18at 08:35; Admin Dose 1,000 MCG; Start 10/03/18 at 09:00 Docusate Sodium (Colace) 100 mg BID PO Last administered on 10/12/18at 08:34; Admin Dose 100 MG; Start 10/06/18 at 21:00 Bisacodyl (Dulcolax) 10 mg DAILY PRN PO CONSTIPATION Last administered on 10/07/18at 06:08; Admin Dose 10 MG; Start 10/06/18 at 19:00 Polyethylene Glycol (Miralax) 17 gm DAILY PRN PO CONSTIPATION; Start 10/08/18 at 21:00 Carvedilol (Coreg) 6.25 mg BID GTB Last administered on 10/11/18at 20:59; Admin Dose 6.25 MG; Start 10/09/18 at 21:00 Digoxin (Digoxin) 0.125 mg DAILY@1300 PO Last administered on 10/11/18at 13:22; Admin Dose 0.125 MG; Start 10/11/18 at 13:00 JACLYN RODRIGUEZ Oct 12, 2018 11:16
[2018-10-12 12:07] VITALS: BP 90/55; PULSE 58; RESP 20
[2018-10-12] MEDS: DIGOXIN 0.125 MG TAB PO SCH (12:58)
[2018-10-12 15:55] VITALS: BP 106/46; PULSE 98; RESP 20
--- NOTE | 2018-10-12 17:26 | CONS ---
Assessment/Plan Assessment/Plan Assessment/Plan (Daily) 1. acute on chronic renal failure 2/2 Hemodynamics 2. H/o Ischemic cardiomyopathy with last known EF of 25% s/p AICD placement 3. H/o CAD with previous Coronary stent placement 4. H/o COPD 5. H/o DM II 6. H/O depression 7. H/o Arthritis 8. H/o CVA Plan: BUN/Cr 25/1.98- Other electrolytes stable ,offf IVF Now continue Lasix 20mg po dialy < Lisinopril 2.5 mg po daily Renal US C/w CKD Cardioloyg following plan for d/c today will follow up Consultation Date/Type/Reason Admit Date/Time Oct 02, 2018 at 20:53 Initial Consult Date Requesting Provider: DAMIR LATIF Date/Time of Note DATE: 10/12/18 TIME: 17:26 Exam/Review of Systems Exam Vitals Vital Signs Date Temp Pulse Resp B/P (MAP) Pulse Ox O2 O2 Flow FiO2 Time Delivery Rate 10/12/18 98.0 98 20 106/46 96 Room Air 15:55 (66) Intake and Output 10/11/18 10/11/18 10/12/18 1515:00 23:00 07:00 IntakeIntake Total 290 ml 240 ml OutputOutput Total 400 ml 225 ml BalanceBalance -110 ml 240 ml -225 ml Results Result Diagram: 10/08/18 0523 10/12/18 0535 Results 24hrs Laboratory Tests Test 10/11/18 20:54 10/12/18 05:35 10/12/18 07:56 10/12/18 11:55 Bedside Glucose 155 100 119 Sodium Level 135 Potassium Level 3.8 Chloride Level 101 Carbon Dioxide Level 28 Anion Gap 6 Blood Urea Nitrogen 25 H Creatinine 1.98 H Est Glomerular Filtrat Rate mL/min Glucose Level 99 Calcium Level 8.7 Magnesium Level 2.1 Test 10/12/18 16:58 Bedside Glucose 121 Medications Medication Current Medications IV Flush (NS 3 ml) 3 ml PER PROTOCOL IV ; Start 10/02/18 at 21:30 Ondansetron HCl (Zofran Inj) 4 mg Q6H PRN IV NAUSEA/VOMITING; Start 10/02/18 at 21:30 Acetaminophen (Tylenol Tab) 650 mg Q6H PRN PO .PAIN 1-3 OR TEMP; Start 10/02/18 at 21:30 Morphine Sulfate (morphine) 2 mg Q4H PRN IV .PAIN 7-10; Start 10/02/18 at 21:30 Famotidine (Pepcid) 20 mg DAILY PO Last administered on 10/12/18 08:34; Admin Dose 20 MG; Start 10/03/18 at 09:00 Enoxaparin Sodium (Lovenox) 30 mg DAILY SC Last administered on 10/12/18at 08:41; Admin Dose 30 MG; Start 10/03/18 at 09:00 Allopurinol (Zyloprim) 100 mg DAILY PO Last administered on 10/12/18 08:36; Admin Dose 100 MG; Start 10/03/18 at 09:00 Aripiprazole (Abilify) 5 mg DAILY PO Last administered on 10/12/18 08:36; Admin Dose 5 MG; Start 10/03/18 at 09:00 Atorvastatin Calcium (Lipitor) 80 mg QHS PO Last administered on 10/11/18at 20:58; Admin Dose 80 MG; Start 10/03/18 at 21:00 Furosemide (Lasix) 20 mg DAILY PO Last administered on 10/12/18 08:34; Admin Dose 20 MG; Start 10/03/18 at 09:00 Glimepiride (Amaryl) 2 mg WITH BREAKFAST PO ; Start 10/03/18 at 08:00; Status Hold Lamotrigine (Lamictal) 100 mg BID PO Last administered on 10/12/18 08:34; Admin Dose 100 MG; Start 10/03/18 at 09:00 Levothyroxine Sodium (Synthroid) 150 mcg BEFORE BREAKFAST PO Last administered on 10/12/18at 06:30; Admin Dose 150 MCG; Start 10/03/18 at 07:00 Lisinopril (Zestril) 2.5 mg DAILY PO Last administered on 10/12/18 08:34; Admin Dose 2.5 MG; Start 10/03/18 at 09:00 Diagnostic Test (Pha) (Accu-Chek) 1 ea AC MEALS AND BEDTIME XX Last administered on 10/12/18at 17:20; Admin Dose 1 EA; Start 10/03/18 at 07:00 Diagnostic Test (Pha) (Accu-Chek) 1 ea 02 XX Last administered on 10/07/18at 02:21; Admin Dose 1 EA; Start 10/04/18 at 02:00 Insulin Aspart (Novolog Insulin Pen) NOVOLOG *MODERATE* ALGORITHM WITH MEALS BEDTIME SC Last administered on 10/10/18at 12:33; Admin Dose 6 UNIT; Start 10/03 at 08:00 Miscellaneous Information 1 ea NOTE XX ; Start 10/03/18 at 02:30 Glucose (Glutose) 15 gm Q15M PRN PO DECREASED GLUCOSE; Start 10/03/18 at 02:30 Glucose (Glutose) 22.5 gm Q15M PRN PO DECREASED GLUCOSE; Start 10/03/18 at 02:30 Dextrose (D50w Syringe) 25 ml Q15M PRN IV DECREASED GLUCOSE; Start 10/03/18 at 02:30 Dextrose (D50w Syringe) 50 ml Q15M PRN IV DECREASED GLUCOSE; Start 10/03/18 at 02:30 Glucagon (Glucagen) 1 mg Q15M PRN IM DECREASED GLUCOSE; Start 10/03/18 at 02:30 Glucose (Glutose) 15 gm Q15M PRN BUCCAL DECREASED GLUCOSE; Start 10/03/18 at 02:30 Cyanocobalamin (Vitamin B12) 1,000 mcg DAILY PO Last administered on 10/12/18at 08:35; Admin Dose 1,000 MCG; Start 10/03/18 at 09:00 Docusate Sodium (Colace) 100 mg BID PO Last administered on 10/12/18at 08:34; Admin Dose 100 MG; Start 10/06/18 at 21:00 Bisacodyl (Dulcolax) 10 mg DAILY PRN PO CONSTIPATION Last administered on 02/13at 06:08; Admin Dose 10 MG; Start 10/06/18 at 19:00 Polyethylene Glycol (Miralax) 17 gm DAILY PRN PO CONSTIPATION; Start 10/08/18 at 21:00 Carvedilol (Coreg) 6.25 mg BID GTB Last administered on 10/11/18at 20:59; Admin Dose 6.25 MG; Start 10/09/18 at 21:00 Digoxin (Digoxin) 0.125 mg DAILY@1300 PO Last administered on 10/12/18at 12:58; Admin Dose 0.125 MG; Start 10/11/18 at 13:00 MIHAI JOSEPH MD Oct 12, 2018 17:26
--- NOTE | 2018-10-12 22:34 | DS ---
Date/Time of Note Date/Time of Note DATE: 10/12/18 TIME: 22:34 Discharge Summary Admission/Discharge Info Admit Date/Time Oct 02, 2018 at 20:53 Discharge Date/Time Oct 12, 2018 at 18:29 Home Meds Reported Medications Furosemide* (Furosemide*) 20 Mg Tablet, 20 MG PO DAILY, #60 TAB 10/02/18 Cyanocobalamin (Vitamin B-12) (Vitamin B-12) 1,000 Mcg Capsule, 1000 MCG PO DAILY, CAP 10/02/18 Aripiprazole* (Abilify*) 5 Mg Tab, 5 MG PO DAILY, #30 TAB 10/02/18 Atorvastatin* (Atorvastatin*) 80 Mg Tablet, 80 MG PO QHS, #30 TAB 10/02/18 Lisinopril* (Lisinopril*) 2.5 Mg Tablet, 2.5 MG PO DAILY, #30 TAB 10/02/18 Levothyroxine Sodium* (Levothyroxine Sodium*) 150 Mcg Tablet, 150 MCG PO BEFORE BREAKFAST, #30 TAB 10/02/18 Allopurinol* (Allopurinol*) 100 Mg Tablet, 100 MG PO DAILY, TAB 10/02/18 Digoxin* (Digitek*) 125 Mcg Tablet, 0.125 MG PO DAILY, TAB 10/02/18 Carvedilol* (Carvedilol*) 3.125 Mg Tablet, 3.125 MG PO BID, #60 TAB 10/02/18 Pantoprazole* (Pantoprazole*) 40 Mg Tablet.dr, 40 MG PO AC BREAKFAST, TAB 10/02/18 Lamotrigine* (Lamotrigine*) 100 Mg Tablet, 100 MG PO BID, TAB 10/02/18 Glimepiride* (Glimepiride*) 2 Mg Tablet, 2 MG PO WITH BREAKFAST, TAB 10/02/18 Primary Care Provider Nathan Giron MD Pending Labs Laboratory Tests Test 10/12/18 05:35 10/12/18 07:56 10/12/18 11:55 10/12/18 16:58 Sodium Level 135 mmol/L (135-144 ) Potassium 3.8 Level mmol/L (3.5-5.1 ) Chloride Level 101 mmol/L (97-110) Carbon Dioxide 28 Level mmol/L (21-31) Anion Gap 6 (5-13) Blood Urea 25 mg/dl (7-20) Nitrogen Creatinine 1.98 mg/dl (0.61-1.2 4) Est Glomerular mL/min (>60) Filtrat Rate mL/min Glucose Level 99 mg/dl (70-220) Calcium Level 8.7 mg/dl (8.4-10.2 ) Magnesium 2.1 Level mg/dl (1.7-2.5) Bedside 100 119 121 Glucose mg/dL (70-220) mg/dL (70-220) mg/dL (70-220) SOFÍA CHU Oct 12, 2018 22:34
== END 2018-10-12 18:29 | DRG 314 ==
LOC: E/R 17:40 → 6WM 20:53
PROVIDERS: ADMIT Internal Medicine; ATTEND Internal Medicine
DX: T82.198A Other mechanical complication of other cardiac electronic device, initial encounter (principal); I50.23 Acute on chronic systolic (congestive) heart failure; N17.9 Acute kidney failure, unspecified; I13.0 Hypertensive heart and chronic kidney disease with heart failure and stage 1 through stage 4 chronic kidney disease, or unspecified chronic kidney disease; E86.0 Dehydration; E11.8 Type 2 diabetes mellitus with unspecified complications; J44.9 Chronic obstructive pulmonary disease, unspecified; E11.22 Type 2 diabetes mellitus with diabetic chronic kidney disease; I25.5 Ischemic cardiomyopathy; N18.3 Chronic kidney disease, stage 3 (moderate); E78.5 Hyperlipidemia, unspecified; F17.200 Nicotine dependence, unspecified, uncomplicated; I25.10 Atherosclerotic heart disease of native coronary artery without angina pectoris; E03.9 Hypothyroidism, unspecified; F32.9 Major depressive disorder, single episode, unspecified; F41.9 Anxiety disorder, unspecified; R55 Syncope and collapse; Y71.0 Diagnostic and monitoring cardiovascular devices associated with adverse incidents; Y92.129 Unspecified place in nursing home as the place of occurrence of the external cause; Z79.4 Long term (current) use of insulin; Z95.810 Presence of automatic (implantable) cardiac defibrillator; Z95.5 Presence of coronary angioplasty implant and graft; Z86.73 Personal history of transient ischemic attack (TIA), and cerebral infarction without residual deficits
CPT/HCPCS: 36415; 70450; 71045; 78452; 80048; 80053; 80061; 80162; 81003; 82550; 82553; 82962; 83036; 83735; 84484; 85025; 85610; 85730; 93005; 93017; 93306; 97110; 97116; 97161; 97530; A9500; A9505; J1650; J1815; J2785; J3475; J7030; J7040

== ENCOUNTER 2018-10-30 17:34 | Emergency (ER) | payer MEDICARE, OTHER ==
[~2018-10-30] VITALS: Ht 170.2 cm; Wt 70.0 kg
[~2018-10-30 17:34] MED LIST changes: -ACET-141 PO; -ARIP5TAB20 ORAL; -ASPI-1044 PO; -CYAN500T46 PO; -DIGO125T93 PO; -FURO-110 PO; -LAMO100T ORAL; -LEVO150T64 PO; -LISI2.5T59 ORAL; -PANT40TA3 PO
[2018-10-30 17:36] VITALS: Ht 170.2 cm; Wt 70.0 kg
[2018-10-30] MEDS ORDERED: DIPHTH/TET/ACEL PERTUSS (ADULT) 0.5 ML VIAL IM* ONE (18:00)
[2018-10-30] MEDS ORDERED: ACETAMINOPHEN 500 MG TAB PO ONE (18:00)
[2018-10-30 19:56] VITALS: BP 102/49; PULSE 57; RESP 12
== END 2018-10-30 20:10 | disposition home or self-care (01) ==
LOC: E/R 17:34
DX: S00.01XA Abrasion of scalp, initial encounter (principal); J44.9 Chronic obstructive pulmonary disease, unspecified; R51 Headache; W01.0XXA Fall on same level from slipping, tripping and stumbling without subsequent striking against object, initial encounter; Y92.9 Unspecified place or not applicable; Z98.61 Coronary angioplasty status; Z87.891 Personal history of nicotine dependence; Z79.84 Long term (current) use of oral hypoglycemic drugs; Z23 Encounter for immunization
CPT/HCPCS: 70450; 90471; 90715